=== PATIENT | male | born 1945 | race Caucasian/White ===

== ENCOUNTER → 2018-03-31 | Outpatient (CLI) | payer MEDICARE, OTHER ==
[~2018-03-31] VITALS: Ht 172.7 cm; Wt 88.5 kg
[~2018-03-31] MED LIST: CARV3.12T PO; CATHETER FLUSH 10 ML SYR IV PRN; CHOL10008 PO; E400C PO; ENXP30I.3 SC; FISH1200 PO; HCT25T; KRIL1CAP PO; LISI10TA PO; LISI5TAB PO; NIAC1CAP PO; NIAC250C2 PO; PITA2TAB2 PO; PRD20T PO; REGADENOSON 0.4 MG/5 ML SYR (LEXISCAN) IV ONE; TAPE50TA PO; TMSL.4C PO; WRF1T PO; WRF3T PO
[2018-03-31 08:55] VITALS: BP 174/84
[2018-03-31 08:59] VITALS: BP 173/106
--- NOTE | 2018-04-01 19:33 | STRESS TEST ---
DATE OF SERVICE: 03/31/2018 RESTING AND POST-REGADENOSON TECHNETIUM-99M TETROFOSMIN SPECT CT IMAGING ORDERING PHYSICIAN: Dr. Reddy. PRIMARY CARE PHYSICIAN: Dr. Fajardo. CLINICAL DIAGNOSIS: Malaise, shortness of breath. Baseline images were carried out after injection of 10.86 mCi of technetium-99m Tetrofosmin. This was followed by 0.4 mg of regadenoson and 30.6 mCi of technitium-99m Tetrofosmin for stress imaging. The electrocardiogram showed sinus rhythm at baseline. He did not change significantly with the regadenoson infusion. The patient tolerated the procedure well. Review of images at rest and following stress does not indicate any distinct perfusion defects consistent with myocardial ischemia or infarction. Count uptake is diminished in the diaphragmatic wall of the left ventricle, both at rest and following regadenoson infusion. Gated images show normal global left ventricular systolic function and normal regional wall motion, including the diaphragmatic wall of the left ventricle. Left ventricular ejection fraction is calculated to be 67%. Left ventricular end-diastolic volume 31 mL. TID is absent (1.07). CONCLUSIONS: 1. No evidence of significant myocardial ischemia or infarction on this study. 2. Normal regional wall motion. 3. Normal global left ventricular systolic function with a calculated ejection fraction of 67%. Job ID: [id number] DocumentID: [id number] Dictated Date: 04/01/2018 16:11:21 Laser Engraver Date: 04/01/2018 19:33:01 Dictated By: SUNNY REDDY MD, MA, FACP, FACC,
== END ==
LOC: CARD 07:14
PROVIDERS: ATTEND Internal Medicine Cardiovascular Disease
DX: R53.81 Other malaise (principal); R06.02 Shortness of breath; I10 Essential (primary) hypertension; D68.51 Activated protein C resistance
CPT/HCPCS: 78452; 93017

== ENCOUNTER → 2018-04-07 | Outpatient (CLI) | payer MEDICARE, OTHER ==
[~2018-04-07] MED LIST changes: -CATHETER FLUSH 10 ML SYR IV PRN; -REGADENOSON 0.4 MG/5 ML SYR (LEXISCAN) IV ONE
== END ==
LOC: CARD 09:46
PROVIDERS: ATTEND Internal Medicine Cardiovascular Disease
DX: R06.02 Shortness of breath (principal); I10 Essential (primary) hypertension; D68.51 Activated protein C resistance; R53.81 Other malaise; I08.1 Rheumatic disorders of both mitral and tricuspid valves
CPT/HCPCS: 93306

== ENCOUNTER 2018-04-14 08:15 | Emergency (ER) | payer MEDICARE ==
[~2018-04-14] VITALS: Ht 172.7 cm; Wt 86.2 kg
[~2018-04-14 08:15] MED LIST changes: -PRD20T PO
--- OUTSIDE RECORDS SUMMARY | 2018-04-14 08:24 | XMS REPORT | Clinical Summary ---
Author Author [facility] Organization [facility] Address Unknown Phone Unavailable Care Team Providers Care Administrative Medical Director Name Role Phone PCP Unavailable Source Comments Some departments are not documenting in the electronic medical record. If you do not see the information that you expected, contact Release of Information in the Health Information Management department at [phone] for further assistance in locating additional records.[facility] Allergies Active Allergy Reactions Severity Noted Date Comments Aspirin Medium 12/07/2006 Allergy recorded in SMS: Aspirin~Reactions: HIVES Current Medications Not on file Active Problems Not on file Social History Tobacco Use Types Packs/Day Years Used Date Never Assessed Sex Assigned at Date Recorded Not on file Last Filed Vital Signs Not on file Plan of Treatment Health Maintenance Due Date Last Done Comments HEPATITIS C SCREENING 1945 PHYSICAL (COMPREHENSIVE) 1953 EXAM PERTUSSIS VACCINE 1957 TETANUS VACCINE 12/22/1963 COLORECTAL CANCER 1996 SCREENING SHINGLES RECOMBINANT 1996 VACCINE (1 of 2) PNEUMONIA (PCV13/PPSV23) 12/22/2011 VACCINES (1 of 2 - PCV13) INFLUENZA VACCINE 06/27/2018 Results Not on filefrom Last 3 Months
--- OUTSIDE RECORDS SUMMARY | 2018-04-14 08:27 | XMS REPORT | CCD ---
Author Author [facility] Organization [facility] Address [address] [place] [address] Phone Care Team Providers Care Beam Racker Name Role Phone PP Unavailable CCM Unavailable Summary Purpose Interface Exchange Insurance Providers Payer name Policy type / Coverage type Covered green party ID Effective Begin Date Effective End Date [employer] Medicare Part B [id number] 2016 Unknown Family history Mother Diagnosis Age At Onset Stroke Unknown Father Diagnosis Age At Onset Hypertension Unknown Sister Diagnosis Age At Onset Hypertension Unknown Social History Social History Element Codes Description Effective Dates Marital status Unknown 11/09/[address]: 4444680 Former smoker quit 1988 11/09/2012 Allergies, Adverse Reactions, Alerts Substance Reaction Codes Entered Date Inactivated Date Status ASPIRIN (TARTRAZINE ONLY) hives Unknown 11/09/2012 No Inactive Date Active Past Medical History Illness Codes Condition Status Onset Date Resolved Date Other acute sinusitis ICD-9: 461.8 ICD-10: J01.80 Active 10/06/2017 Unknown Other allergic rhinitis ICD-9: 477.8 ICD-10: J30.89 Active 10/06/2017 Unknown 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 ICD-9: V58.69 ICD-10: Z79.899 Active 03/01/2016 Unknown Gastro-esophageal reflux disease without esophagitis ICD-9: 530.81 ICD-10: K21.9 Active 06/23/2017 Unknown Pain in right elbow ICD-9: 719.42 ICD-10: M25.521 Active 02/24/2017 Unknown Other conditions associated with Lyme disease ICD-9: 088.81 ICD-10: A69.29 Active 04/14/2017 Unknown Other dorsalgia ICD-9 : 723.1 ICD-10: M54.89 Active 04/14/2017 Unknown Other fatigue ICD-9: 780.79 ICD-10: R53.83 Active 02/24/2017 Unknown Pain in joints of left hand ICD-9: 719.44 ICD-10: M25.542 Active 02/24/2017 Unknown Pain in joints of right hand ICD-9: 719.44 ICD-10: M25.541 Active 02/24/2017 Unknown Pain in left elbow ICD -9: 719.42 ICD-10: M25.522 Active 02/24/2017 Unknown Essential (primary) hypertension ICD-9: 401.9 ICD-10: I10 Active 05/06/2016 Unknown Impaired fasting glucose ICD-9: 790.21 ICD-10: R73.01 Active 03/01/2016 Unknown Acute recurrent maxillary sinusitis ICD-9: 461.0 ICD-10: J01.01 Active 10/30/2015 Unknown Mixed hyperlipidemia ICD-9: 272.4 ICD-10: E78.2 Active 10/30/2015 Unknown CELLULITIS ICD-9: 682.9 Active 01/25/2014 Unknown Acute maxillary sinusitis ICD-9: 461.0 Active 11/29/2013 Unknown Cough ICD-9: 786.2 Active 11/29/2013 Unknown Encounter for long-term (current) use of other high-risk medications ICD-9: V58.69 Active 11/10/2013 Unknown Allergic rhinitis ICD- 9: 477.9 Active 02/23/2013 Unknown Esophageal reflux ICD- 9: 530.81 Active 02/23/2013 Unknown Sore throat ICD-9: 462 Active 02/23/2013 Unknown Hyperlipidemia Unknown Active 11/30/2012 Unknown HYPERLIPIDEMIA ICD-9: 272.4 Active 11/30/2012 Unknown 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 Active 2012 Unknown Hypertension Unknown Active 11/09/2012 Unknown ESSENTIAL HYPERTENSION ICD-9: 401.9 Active 11/09/2012 Unknown Hip pain ICD-9: 719.45 Active 11/09/2012 Unknown Renal artery stenosis ICD-9: 440.1 Active 11/09/2012 Unknown Problems Condition Codes Effective Dates Condition Status Other acute sinusitis ICD-9: 461.8 ICD-10: J01.80 10/06/2017 Active Other allergic rhinitis ICD-9: 477.8 ICD-10: J30.89 10/06/2017 Active 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 ICD-9: V58.69 ICD-10: Z79.899 03/01/2016 Active Gastro-esophageal reflux disease without esophagitis ICD-9: 530.81 ICD-10: K21.9 06/23/2017 Active Pain in right elbow ICD-9: 719.42 ICD-10: M25.521 02/24/2017 Active Other conditions associated with Lyme disease ICD-9: 088.81 ICD-10: A69.29 04/14/2017 Active Other dorsalgia ICD-9 : 723.1 ICD-10: M54.89 04/14/2017 Active Other fatigue ICD-9: 780.79 ICD-10: R53.83 02/24/2017 Active Pain in joints of left hand ICD-9: 719.44 ICD-10: M25.542 02/24/2017 Active Pain in joints of right hand ICD-9: 719.44 ICD-10: M25.541 02/24/2017 Active Pain in left elbow ICD -9: 719.42 ICD-10: M25.522 02/24/2017 Active Essential (primary) hypertension ICD-9: 401.9 ICD-10: I10 05/06/2016 Active Impaired fasting glucose ICD-9: 790.21 ICD-10: R73.01 03/01/2016 Active Acute recurrent maxillary sinusitis ICD-9: 461.0 ICD-10: J01.01 10/30/2015 Active Mixed hyperlipidemia ICD-9: 272.4 ICD-10: E78.2 10/30/2015 Active CELLULITIS ICD-9: 682.9 01/25/2014 Active Acute maxillary sinusitis ICD-9: 461.0 11/29/2013 Active Cough ICD-9: 786.2 11/29/2013 Active Encounter for long-term (current) use of other high-risk medications ICD-9: V58.69 11/10/2013 Active Allergic rhinitis ICD- 9: 477.9 02/23/2013 Active Esophageal reflux ICD- 9: 530.81 02/23/2013 Active Sore throat ICD-9: 462 02/23/2013 Active Hyperlipidemia Unknown 11/30/2012 Active HYPERLIPIDEMIA ICD-9: 272.4 11/30/2012 Active 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 11/30/2012 Active Hypertension Unknown 11/09/2012 Active ESSENTIAL HYPERTENSION ICD-9: 401.9 11/09/2012 Active Hip pain ICD-9: 719.45 11/09/2012 Active Renal artery stenosis ICD-9: 440.1 11/09/2012 Active Medications Medication Codes Instructions Start Date Stop Date Status Fill Instructions amoxicillin 500 mg capsule RxNorm: 607814 1 Capsule(s) PO TID 10/19/2017 10/28/2017 Active amoxicillin 500 mg capsule RxNorm: 359068 1 Capsule(s) PO TID 10/19/2017 10/18/2017 Inactive Zithromax Z-[place] 250 mg tablet RxNorm: 891942 1 Tablet(s) PO UD 10/06/2017 No Stop Date Active Kenalog 40 mg/mL suspension for injection RxNorm: 7387790 1 Milliliter(s) Inj 10/06/2017 10/06/2017 Inactive Flomax 0.4 mg capsule RxNorm: 239715 TAKE 2 CAPSULES BY MOUTH DAILY 09/30/2017 12/23/2018 Active - Ref: [id number] warfarin 3 mg tablet RxNorm: 783102 TAKE 1 TABLET BY MOUTH ON WEDNESDAY , WEDNESDAY , WEDNESDAY,WEDNESDAY, WEDNESDAY THEN 1 AND 1/2 TABLETS BY MOUTH ON WEDNESDAY AND Wednesday09/30/2017 06/21/2019 Active - Ref: [id number] omeprazole 20 mg capsule,delayed release RxNorm: 019064 1 Capsule(s) PO daily 06/23/2017 07/22/2017 Inactive lisinopril 20 mg tablet RxNorm: 136659 1 Tablet(s) PO BID 04/2104/15/2018 Active Coreg 12.5 mg tablet RxNorm: 147512 1 Tablet(s) PO BID 201605/20/2017 Inactive Coreg 12.5 mg tablet RxNorm: 038258 1 Tablet(s) PO BID 201604/20/2017 Inactive Augmentin 500 mg-125 mg tablet RxNorm: 461252 1 Tablet(s) PO TID 04/14/2017 04/22/2017 Inactive Diflucan 150 mg tablet RxNorm: 250806 1 Tablet(s) PO daily 04/18/2017 Inactive Flomax 0.4 mg capsule RxNorm: 495310 Take 2 capsules by mouth daily 03/31/2017 09/29/2017 Inactive - First Attempt Ref: [id number] lisinopril 20 mg tablet RxNorm: 859715 1 Tablet(s) PO BID 03/1104/20/2017 Inactive Voltaren 1 % topical gel RxNorm: 498921 1 Application TOP BID as needed 03/09/2017 No Stop Date Active lisinopril 20 mg tablet RxNorm: 298688 2 Tablet(s) PO BID 02/2603/10/2017 Inactive cyclobenzaprine 5 mg tablet RxNorm: 657032 1 Tablet(s) PO TID as needed muscle spasms 02/24/2017 02/28/2017 Inactive warfarin 3 mg tablet RxNorm: 057022 1 Tablet(s) PO daily 201609/29/2017 Inactive lisinopril 20 mg tablet RxNorm: 357801 Take 2 tablets by mouth twice a day 09/22/2016 02/25/2017 Inactive - Ref: [id number] lisinopril 20 mg tablet RxNorm: 676800 1 Tablet(s) PO BID 05/0702/25/2017 Inactive First Attempt Coreg 25 mg tablet RxNorm: 138817 1 Tablet(s) PO BID 201502/23/[address] Reddy lisinopril 20 mg tablet RxNorm: 640055 1 Tablet(s) PO daily Take 2 tablets by mouth bid 05/07/2016 05/06/2016 Inactive First Attempt Flomax 0.4 mg capsule RxNorm: 026511 Take 2 capsules by mouth daily 03/15/2016 03/30/2017 Inactive - First Attempt lisinopril 20 mg tablet RxNorm: 865430 2 Tablet(s) PO BID Take 2 tablets by mouth bid 03/04/2016 05/06/2016 Inactive First Attempt lisinopril 20 mg tablet RxNorm: 603474 1 Tablet(s) PO BID Take 2 tablets by mouth daily 03/02/2016 03/03/2016 Inactive First Attempt Phenergan with Codeine Syrup RxNorm: 5 Milliliter(s) PO Q6 PRN 10/31/2015 No Stop Date Active Kenalog 40 mg/mL suspension for injection RxNorm: 5012436 Milliliter(s) Inj 10/31/2015 10/31/2015 Inactive warfarin 3 mg tablet RxNorm: 456486 Tablet(s) Take 1 tablet by mouth on tues,wed, thur,sat and sun and 1 and 1/2 tablets by mouth on wed and wed10/31/2015 07/23/2016 Inactive Zithromax Z-[place] 250 mg tablet RxNorm: 540248 1 Tablet(s) PO UD 10/31/2015 11/04/2015 Inactive zpack Coreg 3.125 mg tablet RxNorm: 791878 1 Tablet(s) PO BID 201405/06/2016 Inactive warfarin 3 mg tablet RxNorm: 498629 Take 1 tablet by mouth on tues,wed,thur,sat and sun and 1 and 1/2 tablets by mouth on wed and wed06/05/2015 Inactive 2nd Attempt warfarin 3 mg tablet RxNorm: 428700 Tablet(s) Take 1 tablet by mouth on tues,wed, thur,sat and sun and 1 and 1/2 tablets by mouth on wed and wed06/06/2015 10/30/2015 Inactive 2nd Attempt Flomax 0.4 mg capsule RxNorm: 301775 Take 2 capsules by mouth daily 04/29/2015 01/23/2016 Inactive First Attempt lisinopril 10 mg tablet RxNorm: 146367 Take 2 tablets by mouth daily 04/29/2015 01/23/2016 Inactive First Attempt warfarin 3 mg tablet RxNorm: 337314 one wed thur sat sun 4.5mg wednesday Tablet(s) PO daily 07/25/2014 06/05/2015 Inactive Flomax 0.4 mg capsule RxNorm: 245356 2 Capsule(s) PO daily 07/2504/28/2015 Inactive lisinopril 10 mg tablet RxNorm: 168418 2 Tablet(s) PO daily 04/28/2015 Inactive Coreg 3.125 mg tablet RxNorm: 733656 1 Tablet(s) PO BID 201306/18/2015 Inactive cephalexin 500 mg capsule RxNorm: 690098 1 Capsule(s) PO QID 10/30/2015 Inactive lisinopril 20 mg tablet RxNorm: 097776 1 Tablet(s) PO BID 11/1003/09/2014 Inactive Flomax 0.4 mg capsule RxNorm: 741056 2 Capsule(s) PO daily 10/1207/24/2014 Inactive Coreg 3.125 mg tablet RxNorm: 389587 1 Tablet(s) PO BID 201307/24/2014 Inactive lisinopril 10 mg tablet RxNorm: 369125 2 Tablet(s) PO daily 11/09/2013 Inactive warfarin 3 mg tablet RxNorm: 172916 one wed sat sun 4.5mg wednesday Tablet(s) PO daily 10/12/2013 07/24/2014 Inactive o Flomax 0.4 mg capsule RxNorm: 342025 2 Capsule(s) PO daily 06/0510/11/2013 Inactive Zetia 10 mg tablet RxNorm: 742022 1 Tablet(s) PO daily 201205/15/2013 Inactive Zetia 10 mg tablet RxNorm: 214720 1 Tablet(s) PO daily 201209/12/2013 Inactive Carafate 100 mg/mL Oral Susp RxNorm: 241946 10 Milliliter(s) PO QID 05/10/2013 10/30/2015 Inactive dispense one month supply Flomax 0.4 mg capsule RxNorm: 390746 2 Capsule(s) PO daily 05/1006/04/2013 Inactive Carafate 100 mg/mL Oral Susp RxNorm: 156539 10 Milliliter(s) PO QID 02/23/2013 04/23/2013 Inactive dispense one month supply gabapentin 100 mg capsule RxNorm: 369329 1 Capsule(s) PO daily one at bedtime and one up to three times daily as needed for nerve pain in leg 01/16/2013 05/09/2013 Inactive gabapentin 100 mg capsule RxNorm: 233266 1 Capsule(s) PO daily one at bedtime and one up to three times daily as needed for nerve pain in leg 01/12/2013 01/15/2013 Inactive warfarin 3 mg tablet RxNorm: 872082 Tablet(s) PO 12/05/2012 10/11/2013 Inactive one wed thur sat4.5 mg wed lisinopril 10 mg tablet RxNorm: 397684 2 Tablet(s) PO daily 02/201306/27/2013 Inactive gabapentin 100 mg capsule RxNorm: 692636 1 Capsule(s) PO Q8 PRN one at bedtime and one up to three times daily as needed for nerve pain in leg 11/30/2012 01/11/2013 Inactive Coreg 3.125 mg tablet RxNorm: 858720 1 Tablet(s) PO BID 201201/07/2013 Inactive lisinopril 10 mg tablet RxNorm: 573220 1.5 Tablet(s) PO daily 11/09/2012 11/29/2012 Inactive Co Q-10 oral RxNorm: 73561 oral No Start Date Active lisinopril 20 mg tablet RxNorm: 130358 1 Tablet(s) PO BID No Start Date Active famotidine 20 mg tablet RxNorm: 969556 1 Tablet(s) PO QAM No Start Date Active Coreg 12.5 mg tablet RxNorm: 095039 1 Tablet(s) PO BID No Start Date 04/20/2017 Inactive Voltaren 1 % topical gel RxNorm: 937128 1 Application TOP BID as needed No Start Date 03/08/2017 Inactive warfarin 3 mg tablet RxNorm: 414884 Tablet(s) PO No Start Date 12/04/2012 Inactive one e thur sat4.5 mg wed Flomax 0.4 mg capsule RxNorm: 054538 1 Capsule(s) PO daily No Start Date 05/09/2013 Inactive niacin 500 mg tablet RxNorm: 666600 1 Tablet(s) PO daily No Start Date 03/01/2016 Inactive Medication Administered Medication Codes Instructions Start Date Status Kenalog 40 mg/mL suspension for injection RxNorm: 8153740 1Milliliter 10/06/2017 No longer Active Kenalog 40 mg/mL suspension for injection RxNorm: 5374625 Milliliter 10/31/2015 No longer Active Immunizations No Immunization data Assessments Condition Codes Effective Dates Other acute sinusitis ICD-10: J01.80 ICD-9: 461.8 10/06/2017 Other allergic rhinitis ICD-10: J30.89 ICD-9: 477.8 10/06/2017 Other half-way (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 ICD-10: Z79.899 ICD-9: V58.69 10/06/2017 Gastro-esophageal reflux disease without esophagitis ICD-10 : K21.9 ICD-9: 530.81 06/23/2017 Pain in right elbow ICD-10: M25.521 ICD-9: 719.42 06/23/2017 Other dorsalgia ICD-10: M54.89 ICD-9: 723.1 04/14/2017 Other conditions associated with Lyme disease ICD-10: A69.29 ICD-9: 088.81 04/14/2017 Pain in joints of right hand ICD-10: M25.541 ICD-9: 719.44 02/24/2017 Other fatigue ICD-10: R53.83 ICD-9: 780.79 02/24/2017 Pain in left elbow ICD-10: M25.522 ICD-9: 719.42 02/24/2017 Pain in joints of left hand ICD-10: M25.542 ICD-9: 719.44 02/24/2017 Essential (primary) hypertension ICD-10: I10 ICD-9: 401.9 05/07/2016 Impaired fasting glucose ICD-10: R73.01 ICD-9: 790.21 03/02/2016 Acute recurrent maxillary sinusitis ICD-10: J01.01 ICD-9: 461.0 10/31/2015 Mixed hyperlipidemia ICD-10: E78.2 ICD-9: 272.4 10/31/2015 CELLULITIS ICD-9: 682.9 01/25/2014 Cough ICD-9: 786.2 11/29/2013 Acute maxillary sinusitis ICD-9: 461.0 ESSENTIAL HYPERTENSION SNOMED: 45498264 ICD-9: 401.9 11/10/2013 Encounter for long-term (current) use of other high-risk medications ICD-9: V58.69 11/10/2013 HYPERLIPIDEMIA ICD-9: 272.4 05/10/2013 Allergic rhinitis ICD-9: 477.9 2012 Sore throat ICD-9: 462 02/23/2013 Esophageal reflux ICD-9: 530.81 2012 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 11/30/2012 Hip pain ICD-9: 719.45 11/09/2012 Renal artery stenosis ICD-9: 440.1 2012 Reason For Visit Reason For Visit Effective Dates Notes cough 10/06/2017 gas and bloating 06/23/2017 back pain 04/14/2017 forearm pain 02/24/2017 ribs blood pressure followup 05/07/2016 blood pressure followup 03/02/2016 fever 10/31/2015 skin lesion 01/25/2014 cough 11/29/2013 blood pressure followup 11/10/2013 hypertension 05/10/2013 sore throat 02/23/2013 hypertension 01/12/2013 hypertension 11/30/2012 hypertension 11/09/2012 Results Observation Observation Code Item Item Code Result Date Pt Fgw0340 PT 30.2 seconds 10/06/2017 Pt Azu4121 INR 2.9 10/06/2017 Pt Ifp6169 Low Intensity - 1.5-2.0 10/06/2017 Pt Sav2773 Mod intensity - 2.0-3.0 10/06/2017 Pt Pqu9311 Hi intensity - 3.0-4.0 10/06/2017 Pt Djz0470 PT 33.3 seconds 06/23/2017 Pt Jar3762 INR 3.2 06/23/2017 Pt Ypp9628 Low Intensity - 1.5-2.0 06/23/2017 Pt Fsi6893 Mod intensity - 2.0-3.0 06/23/2017 Pt Zyc3017 Hi intensity - 3.0-4.0 06/23/2017 Tsh Ord6 hTSH II 0.86 uIU/mL 02/24/2017 C-Reactive Protein Qnt Crqnt CRP 0.2 mg/dl 02/24/2017 Comp Metabolic Wqw442 NA 139 mEq/L 02/24/2017 Comp Metabolic Fbe591 K 3.9 mEq/L 02/24/2017 Comp Metabolic Nnf073 CL 105 mEq/L 02/24/2017 Comp Metabolic Exy936 CO2 27.0 mEq/L 02/24/2017 Comp Metabolic Gut243 ANION GAP 11 02/24/2017 Comp Metabolic Pir134 GLUCOSE 93 mg/dL 02/24/2017 Comp Metabolic Pkn059 Creat 1.1 mg/dL 02/24/2017 Comp Metabolic Ybx196 eGFR 73 ml/min/1.73m2 02/24/2017 Comp Metabolic Pdw190 BUN 14 mg/dL 02/24/2017 Comp Metabolic Sai471 B/C Ratio 13.1 Ratio 02/24/2017 Comp Metabolic Tlm291 CALCIUM 8.4 mg/dL 02/24/2017 Comp Metabolic Biu390 ALK PHOS 89 U/L 02/24/2017 Comp Metabolic Khr388 AST(SGOT) 18 U/L 02/24/2017 Comp Metabolic Lcl400 ALT(SGPT) 21 U/L 02/24/2017 Comp Metabolic Yvl355 BILI T 0.5 mg/dL 02/24/2017 Comp Metabolic Vou591 ALBUMIN 3.8 g/dL 02/24/2017 Comp Metabolic Whj425 TPRO 6.5 g/dL 02/24/2017 Comp Metabolic Jrm227 GLOB 2.7 g/dL 02/24/2017 Comp Metabolic Fpq514 A/G Ratio 1.4 Ratio 02/24/2017 Comp Metabolic Bxb367 Osmo 278 mOsmo 02/24/2017 Sed Rate Ord21 ESR 25 mm/hr 02/24/2017 Pt Tri4702 PT 31.7 seconds 02/24/2017 Pt Hjc5670 INR 3.3 02/24/2017 Pt Iqi5155 Low Intensity - 1.5-2.0 02/24/2017 Pt Cuh7185 Mod intensity - 2.0-3.0 02/24/2017 Pt Gwe9416 Hi intensity - 3.0-4.0 02/24/2017 Cbc With Differential Ord2 WBC 8.43 K/ul 02/24/2017 Cbc With Differential Ord2 RBC 5.17 M/ul 02/24/2017 Cbc With Differential Ord2 HGB 15.3 g/dl 02/24/2017 Cbc With Differential Ord2 HCT 43.7 % 02/24/2017 Cbc With Differential Ord2 Neut% 55.5 % 02/24/2017 Cbc With Differential Ord2 MCV 84.5 fl 02/24/2017 Cbc With Differential Ord2 Lymph% 31.1 % 02/24/2017 Cbc With Differential Ord2 [place]% 9.7 % 02/24/2017 Cbc With Differential Ord2 MCH 29.6 pg 02/24/2017 Cbc With Differential Ord2 MCHC 35.0 pg 02/24/2017 Cbc With Differential Ord2 Eos% 2.6 % 02/24/2017 Cbc With Differential Ord2 Baso% 1.1 % 02/24/2017 Cbc With Differential Ord2 PLT 212 K/ul 02/24/2017 Cbc With Differential Ord2 Neut ABS# 4.68 K/ul 02/24/2017 Cbc With Differential Ord2 RDW 13.9 % 02/24/2017 Cbc With Differential Ord2 Lymph ABS# 2.62 K/ul 02/24/2017 Cbc With Differential Ord2 [place] ABS# 0.8 K/ul 02/24/2017 Cbc With Differential Ord2 Eos ABS# 0.2 K/ul 02/24/2017 Cbc With Differential Ord2 Baso ABS# 0.1 K/ul 02/24/2017 Pt Npz2897 PT 22.4 seconds 12/28/2016 Pt Fqk5690 INR 2.1 12/28/2016 Pt Rit1095 Low Intensity - 1.5-2.0 12/28/2016 Pt Dro0390 Mod intensity - 2.0-3.0 12/28/2016 Pt Ewt2313 Hi intensity - 3.0-4.0 12/28/2016 Pt Lal2657 PT 30.2 seconds 11/26/2016 Pt Zjy5937 INR 3.1 11/26/2016 Pt How0548 Low Intensity - 1.5-2.0 11/26/2016 Pt Sxo2931 Mod intensity - 2.0-3.0 11/26/2016 Pt Rva2489 Hi intensity - 3.0-4.0 11/26/2016 Pt Vkf8090 PT 34.3 seconds 11/20/2016 Pt Zmn8541 INR 3.7 11/20/2016 Pt Xih0496 Low Intensity - 1.5-2.0 11/20/2016 Pt Yff9139 Mod intensity - 2.0-3.0 11/20/2016 Pt Adn1356 Hi intensity - 3.0-4.0 11/20/2016 Pt Ixk7937 PT 29.0 seconds 07/14/2016 Pt Wnf2782 INR 2.9 07/14/2016 Pt Mkd5920 Low Intensity - 1.5-2.0 07/14/2016 Pt Wdm3426 Mod intensity - 2.0-3.0 07/14/2016 Pt Sbv0510 Hi intensity - 3.0-4.0 07/14/2016 Lipid Ord30 CHOL 236 mg/dL 07/14/2016 Lipid Ord30 HDL 36.0 mg/dl 07/14/2016 Lipid Ord30 TRIG 406 mg/dL 07/14/2016 Lipid Ord30 LDL Unable to calculate Due to elevated triglycerides mg/dL 07/14/2016 Lipid Ord30 C/HDL 6.6 Ratio 07/14/2016 %Hba1C Rkl980 % HbA1c 75345-9 6.0 % 03/02/2016 %Hba1C Chm454 Gluc Ave 126 mg/dL 03/02/2016 Tsh Ord6 hTSH II 0.68 uIU/mL 03/02/2016 Comp Metabolic Ttb621 NA 140 mEq/L 03/02/2016 Comp Metabolic Smm102 K 4.1 mEq/L 03/02/2016 Comp Metabolic Rwr757 CL 105 mEq/L 03/02/2016 Comp Metabolic Gyy562 CO2 29.0 mEq/L 03/02/2016 Comp Metabolic Cne281 ANION GAP 10 03/02/2016 Comp Metabolic Bcf813 GLUCOSE 104 mg/dL 03/02/2016 Comp Metabolic Hju026 Creat 1.0 mg/dL 03/02/2016 Comp Metabolic Vph429 eGFR 77 ml/min/1.73m2 03/02/2016 Comp Metabolic Fty428 BUN 15 mg/dL 03/02/2016 Comp Metabolic Ncq702 B/C Ratio 14.7 Ratio 03/02/2016 Comp Metabolic Hrh172 CALCIUM 8.9 mg/dL 03/02/2016 Comp Metabolic Kng124 ALK PHOS 84 U/L 03/02/2016 Comp Metabolic Hdh063 AST(SGOT) 16 U/L 03/02/2016 Comp Metabolic Hso638 ALT(SGPT) 17 U/L 03/02/2016 Comp Metabolic Tft905 BILI T 0.5 mg/dL 03/02/2016 Comp Metabolic Ylr997 ALBUMIN 4.0 g/dL 03/02/2016 Comp Metabolic Zuy151 TPRO 6.6 g/dL 03/02/2016 Comp Metabolic Ziy826 GLOB 2.6 g/dL 03/02/2016 Comp Metabolic Leb434 A/G Ratio 1.5 Ratio 03/02/2016 Comp Metabolic Jdb736 Osmo 281 mOsmo 03/02/2016 Cbc With Differential Ord2 WBC 8.05 K/ul 03/02/2016 Cbc With Differential Ord2 RBC 5.16 M/ul 03/02/2016 Cbc With Differential Ord2 HGB 15.1 g/dl 03/02/2016 Cbc With Differential Ord2 HCT 44.4 % 03/02/2016 Cbc With Differential Ord2 Neut% 60.4 % 03/02/2016 Cbc With Differential Ord2 MCV 86.0 fl 03/02/2016 Cbc With Differential Ord2 Lymph% 28.4 % 03/02/2016 Cbc With Differential Ord2 [place]% 8.1 % 03/02/2016 Cbc With Differential Ord2 MCH 29.3 pg 03/02/2016 Cbc With Differential Ord2 Eos% 1.9 % 03/02/2016 Cbc With Differential Ord2 MCHC 34.0 pg 03/02/2016 Cbc With Differential Ord2 PLT 232 K/ul 03/02/2016 Cbc With Differential Ord2 Baso% 1.2 % 03/02/2016 Cbc With Differential Ord2 RDW 14.0 % 03/02/2016 Cbc With Differential Ord2 Neut ABS# 4.86 K/ul 03/02/2016 Cbc With Differential Ord2 Lymph ABS# 2.29 K/ul 03/02/2016 Cbc With Differential Ord2 [place] ABS# 0.7 K/ul 03/02/2016 Cbc With Differential Ord2 Eos ABS# 0.2 K/ul 03/02/2016 Cbc With Differential Ord2 Baso ABS# 0.1 K/ul 03/02/2016 Pt Jse5443 PT 30.0 seconds 03/02/2016 Pt Ooi0890 INR 3.1 03/02/2016 Pt Ekd8488 Low Intensity - 1.5-2.0 03/02/2016 Pt Zep5753 Mod intensity - 2.0-3.0 03/02/2016 Pt Inh0678 Hi intensity - 3.0-4.0 03/02/2016 Cbc With Differential Ord2 WBC 5.13 K/ul 10/31/2015 Cbc With Differential Ord2 RBC 5.65 M/ul 10/31/2015 Cbc With Differential Ord2 HGB 16.3 g/dl 10/31/2015 Cbc With Differential Ord2 HCT 48.0 % 10/31/2015 Cbc With Differential Ord2 Neut% 59.8 % 10/31/2015 Cbc With Differential Ord2 Lymph% 25.5 % 10/31/2015 Cbc With Differential Ord2 MCV 85.0 fl 10/31/2015 Cbc With Differential Ord2 [place]% 12.7 % 10/31/2015 Cbc With Differential Ord2 MCH 28.8 pg 10/31/2015 Cbc With Differential Ord2 MCHC 34.0 pg 10/31/2015 Cbc With Differential Ord2 Eos% 1.4 % 10/31/2015 Cbc With Differential Ord2 PLT 222 K/ul 10/31/2015 Cbc With Differential Ord2 Baso% 0.6 % 10/31/2015 Cbc With Differential Ord2 Neut ABS# 3.07 K/ul 10/31/2015 Cbc With Differential Ord2 RDW 14.4 % 10/31/2015 Cbc With Differential Ord2 Lymph ABS# 1.31 K/ul 10/31/2015 Cbc With Differential Ord2 [place] ABS# 0.7 K/ul 10/31/2015 Cbc With Differential Ord2 Eos ABS# 0.1 K/ul 10/31/2015 Cbc With Differential Ord2 Baso ABS# 0.0 K/ul 10/31/2015 Cbc With Differential Ord2 New Analyzer Notice Please note new ref ranges starting 10-09-2015 due to implemntation of new five part differential hematolgy analyzer. 10/31/2015 Lipid Ord30 CHOL 184 mg/dL 10/31/2015 Lipid Ord30 HDL 29.0 mg/dl 10/31/2015 Lipid Ord30 TRIG 283 mg/dL 10/31/2015 Lipid Ord30 LDL 98 mg/dL 10/31/2015 Lipid Ord30 C/HDL 6.3 Ratio 10/31/2015 Tsh Ord6 hTSH II 0.88 uIU/mL 10/31/2015 Comp Metabolic Fpp466 NA 135 mEq/L 10/31/2015 Comp Metabolic Mce648 K 4.2 mEq/L 10/31/2015 Comp Metabolic Lgq816 CL 99 mEq/L 10/31/2015 Comp Metabolic Uxa697 CO2 28.0 mEq/L 10/31/2015 Comp Metabolic Dfg537 ANION GAP 12 10/31/2015 Comp Metabolic Xup292 GLUCOSE 107 mg/dL 10/31/2015 Comp Metabolic Ndo251 Creat 1.2 mg/dL 10/31/2015 Comp Metabolic Mjs222 eGFR 63 ml/min/1.73m2 10/31/2015 Comp Metabolic Cqx566 BUN 12 mg/dL 10/31/2015 Comp Metabolic Hdr150 B/C Ratio 9.9 Ratio 10/31/2015 Comp Metabolic Zot823 CALCIUM 8.4 mg/dL 10/31/2015 Comp Metabolic Jrl712 ALK PHOS 134 U/L 10/31/2015 Comp Metabolic Egn405 AST(SGOT) 20 U/L 10/31/2015 Comp Metabolic Mif966 ALT(SGPT) 16 U/L 10/31/2015 Comp Metabolic Nrq701 BILI T 0.4 mg/dL 10/31/2015 Comp Metabolic Ntv943 ALBUMIN 4.2 g/dL 10/31/2015 Comp Metabolic Bmj557 TPRO 7.2 g/dL 10/31/2015 Comp Metabolic Eho796 GLOB 3.1 g/dL 10/31/2015 Comp Metabolic Qyn964 A/G Ratio 1.4 Ratio 10/31/2015 Comp Metabolic Aou300 Osmo 270 mOsmo 10/31/2015 Total Psa Ord10 PSA 2.66 ng/mL 10/31/2015 %Hba1C Hop807 % HbA1c 78804-9 6.1 % 10/31/2015 %Hba1C Apb891 Gluc Ave 128 mg/dL 10/31/2015 Pt Vky7880 PT 26.4 seconds 10/31/2015 Pt Jll0397 INR 2.5 10/31/2015 Pt Nfu9730 Low Intensity - 1.5-2.0 10/31/2015 Pt Ptr8754 Mod intensity - 2.0-3.0 10/31/2015 Pt Dpm7691 Hi intensity - 3.0-4.0 10/31/2015 TSH 8495822 TSH 0.819 uIU/ML 11/10/2013 PT/MC 8222611 PRO TIME 24.5 SEC 11/10/2013 PT/MC [id number] INR MCMC 2.3 11/10/2013 GFR CALC 1422307 GFR AA >60 ML/MIN 11/10/2013 GFR CALC 5286090 GFR NON-AA >60 ML/MIN 11/10/2013 CBC 7947247 WBC 8.4 10e9/L 11/10/2013 CBC 7868069 RBC 5.24 10e12/L 11/10/2013 CBC 0407929 HGB 15.4 g/dL 11/10/2013 CBC 7434593 HCT DET 43.8 % 11/10/2013 CBC 4691094 MCV 83.6 fL 11/10/2013 CBC 1290707 MCH 29.4 pg 11/10/2013 CBC 6504678 MCHC 35.2 g/dL 11/10/2013 CBC 0591784 PLT 250 10e9/L 11/10/2013 CBC 9641173 MPV 11.1 fL 11/10/2013 CBC 7099116 OANH % 58.1 % 11/10/2013 CBC 1848040 LY % 28.5 % 11/10/2013 CBC 1829210 MON % 10.2 % 11/10/2013 CBC 1712927 EOS % 2.1 % 11/10/2013 CBC 7355468 BASO % 1.1 % 11/10/2013 CBC [id number] RDW 13.3 % 11/10/2013 CBC [id number] ABS OANH 4.88 10e9/L 11/10/2013 CBC [id number] ABS LYMPH 2.39 10e9/L 11/10/2013 CBC [id number] ABS MONO 0.86 10e9/L 11/10/2013 CBC [id number] ABS EOS 0.18 10e9/L 11/10/2013 CBC [id number] ABS BASO 0.09 10e9/L 11/10/2013 CBC [id number] RDW-SD 40.7 fL 11/10/2013 CHEM 14 [id number] AST 17 U/L 11/10/2013 CHEM 14 [id number] ALT 17 IU/L 11/10/2013 CHEM 14 [id number] BUN 15 MG/DL 11/10/2013 CHEM 14 [id number] ALBUMIN 4.3 GM/DL 11/10/2013 CHEM 14 [id number] CHLORIDE 103 MMOL/L 11/10/2013 CHEM 14 [id number] BILI TOT 0.6 MG/DL 11/10/2013 CHEM 14 [id number] ALK PHOS 104 U/L 11/10/2013 CHEM 14 [id number] SODIUM 137 MMOL/L 11/10/2013 CHEM 14 [id number] CREATININE 1.08 MG/DL 11/10/2013 CHEM 14 [id number] CALCIUM 8.9 MG/DL 11/10/2013 CHEM 14 [id number] POTASSIUM 4.0 MMOL/L 11/10/2013 CHEM 14 [id number] PROT TOT 7.0 GM/DL 11/10/2013 CHEM 14 [id number] GLUCOSE 84 MG/DL 11/10/2013 CHEM 14 [id number] BICARB 28 MMOL/L 11/10/2013 CHEM 14 [id number] ANION GAP 6 MEQ/L 11/10/2013 Review of Systems System Result Effective Dates Constitutional recent illness 10/06/2017 Constitutional No chills 10/06/2017 Constitutional No diaphoresis 10/06/2017 Constitutional No fever 10/06/2017 Eyes No eye erythema 10/06/2017 Ears/Nose/Throat/Neck nasal allergies 06/2018 Ears/Nose/Throat/Neck nasal discharge 06/2018 Ears/Nose/Throat/Neck postnasal drip 06/2018 Ears/Nose/Throat/Neck sinus congestion Ears/Nose/Throat/Neck No sore throat 06/2018 Cardiovascular No chest pain/pressure 06/2018 Cardiovascular No dyspnea 10/06/2017 Respiratory No chest congestion 2017 Respiratory cough 10/06/2017 Respiratory No dyspnea 10/06/2017 Gastrointestinal No abdominal pain 2017 Gastrointestinal No constipation 2017 Gastrointestinal No diarrhea 10/06/2017 Gastrointestinal No nausea 10/06/2017 Gastrointestinal No vomiting 10/06/2017 Dermatologic No rash 10/06/2017 Neurologic No alteration of consciousness 10/06/2017 Neurologic No mental status change 2017 Constitutional No recent illness 2016 Constitutional No chills 06/23/2017 Constitutional No diaphoresis 06/23/2017 Constitutional No fever 06/23/2017 Eyes No eye erythema 06/23/2017 Ears/Nose/Throat/Neck No nasal allergies 06/23/2017 Ears/Nose/Throat/Neck No nasal discharge 06/23/2017 Cardiovascular No chest pain/pressure Cardiovascular No dyspnea 06/23/2017 Respiratory No cough 06/23/2017 Respiratory No dyspnea 06/23/2017 Gastrointestinal abdominal pain 2016 Gastrointestinal No constipation 2016 Gastrointestinal No diarrhea 06/23/2017 Gastrointestinal gas and bloating 2016 Gastrointestinal No dyspepsia 06/23/2017 Gastrointestinal nausea 06/23/2017 Gastrointestinal No vomiting 06/23/2017 Musculoskeletal joint complaint 2016 Dermatologic No rash 06/23/2017 Neurologic No alteration of consciousness 06/23/2017 Neurologic No mental status change 2016 Constitutional No recent illness 2016 Constitutional No chills 04/14/2017 Constitutional No diaphoresis 04/14/2017 Constitutional No fever 04/14/2017 Eyes No eye erythema 04/14/2017 Ears/Nose/Throat/Neck No nasal allergies 04/14/2017 Ears/Nose/Throat/Neck No nasal discharge 04/14/2017 Cardiovascular No chest pain/pressure Cardiovascular No dyspnea 04/14/2017 Respiratory No dyspnea 04/14/2017 Respiratory No cough 04/14/2017 Gastrointestinal No abdominal pain 2016 Gastrointestinal No vomiting 04/14/2017 Gastrointestinal No nausea 04/14/2017 Gastrointestinal No diarrhea 04/14/2017 Gastrointestinal No constipation 2016 Musculoskeletal back pain 04/14/2017 Musculoskeletal joint complaint 2016 Dermatologic No rash 04/14/2017 Neurologic No alteration of consciousness 04/14/2017 Neurologic No mental status change 2016 Constitutional No recent illness 2016 Constitutional No chills 02/24/2017 Constitutional No diaphoresis 02/24/2017 Constitutional No fever 02/24/2017 Constitutional fatigue 02/24/2017 Eyes No eye erythema 02/24/2017 Ears/Nose/Throat/Neck No nasal allergies 02/24/2017 Ears/Nose/Throat/Neck No nasal discharge 02/24/2017 Cardiovascular No chest pain/pressure Cardiovascular No dyspnea 02/24/2017 Respiratory No cough 02/24/2017 Respiratory No dyspnea 02/24/2017 Gastrointestinal No abdominal pain 2016 Musculoskeletal joint complaint 2016 Dermatologic No rash 02/24/2017 Neurologic No alteration of consciousness 02/24/2017 Neurologic No mental status change 2016 Constitutional No recent illness 2015 Constitutional No anorexia 05/07/2016 Constitutional No night sweats 2015 Constitutional No chills 05/07/2016 Constitutional No diaphoresis 05/07/2016 Constitutional fatigue 05/07/2016 Constitutional No fever 05/07/2016 Constitutional No insomnia 05/07/2016 Constitutional No malaise 05/07/2016 Eyes No eye discharge 05/07/2016 Eyes No eye erythema 05/07/2016 Ears/Nose/Throat/Neck No dizziness 2015 Ears/Nose/Throat/Neck No headache 2015 Ears/Nose/Throat/Neck No nasal allergies 05/07/2016 Ears/Nose/Throat/Neck No nasal discharge 05/07/2016 Respiratory No productive sputum 2015 Respiratory No chest congestion 2015 Respiratory No cough 05/07/2016 Gastrointestinal No abdominal pain 2015 Gastrointestinal No constipation 2015 Gastrointestinal No diarrhea 05/07/2016 Gastrointestinal No nausea 05/07/2016 Gastrointestinal No vomiting 05/07/2016 Genitourinary/Nephrology No dysuria 05/07 Dermatologic No rash 05/07/2016 Dermatologic No sores 05/07/2016 Constitutional No weight loss 05/07/2016 Constitutional No weight gain 05/07/2016 Cardiovascular chest pain/pressure 2015 Cardiovascular No dyspnea 05/07/2016 Cardiovascular No edema 05/07/2016 Musculoskeletal joint complaint 2015 Neurologic No alteration of consciousness 05/07/2016 Constitutional recent illness 03/02/2016 Constitutional No anorexia 03/02/2016 Constitutional No night sweats 2015 Constitutional No chills 03/02/2016 Constitutional No diaphoresis 03/02/2016 Constitutional fatigue 03/02/2016 Constitutional No fever 03/02/2016 Constitutional No insomnia 03/02/2016 Constitutional No malaise 03/02/2016 Constitutional No weight loss 03/02/2016 Constitutional No weight gain 03/02/2016 Eyes No eye discharge 03/02/2016 Eyes No eye erythema 03/02/2016 Ears/Nose/Throat/Neck dizziness 2015 Ears/Nose/Throat/Neck headache 2015 Ears/Nose/Throat/Neck No nasal discharge 03/02/2016 Cardiovascular chest pain/pressure 2015 Cardiovascular fatigue 03/02/2016 Cardiovascular hypertension 03/02/2016 Respiratory No cough 03/02/2016 Respiratory No productive sputum 2015 Gastrointestinal No abdominal pain 2015 Gastrointestinal No constipation 2015 Gastrointestinal No diarrhea 03/02/2016 Genitourinary/Nephrology No dysuria 03/02 Musculoskeletal No joint complaint 2015 Dermatologic No rash 03/02/2016 Dermatologic No sores 03/02/2016 Neurologic No alteration of consciousness 03/02/2016 Psychiatric No anxiety 03/02/2016 Respiratory No cough 10/31/2015 Respiratory No chest tightness 2015 Respiratory No chest congestion 2015 Respiratory No cigarette smoking 2015 Respiratory No productive sputum 2015 Respiratory No dyspnea 10/31/2015 Respiratory No dyspnea on exertion 2015 Cardiovascular No chest pain/pressure 12/2015 Ears/Nose/Throat/Neck nasal discharge 12/2015 Ears/Nose/Throat/Neck No nasal allergies 10/31/2015 Ears/Nose/Throat/Neck headache 2015 Ears/Nose/Throat/Neck otalgia 10/31/2015 Ears/Nose/Throat/Neck otitis media 2015 Ears/Nose/Throat/Neck sinus congestion Ears/Nose/Throat/Neck No sore throat 12/2015 Gastrointestinal No constipation 2015 Gastrointestinal No diarrhea 10/31/2015 Gastrointestinal No vomiting 10/31/2015 Gastrointestinal No nausea 10/31/2015 Eyes eye pain 10/31/2015 Eyes No vision change 10/31/2015 Constitutional No recent illness 2015 Constitutional No anorexia 10/31/2015 Constitutional No night sweats 2015 Constitutional No chills 10/31/2015 Constitutional No diaphoresis 10/31/2015 Constitutional No fatigue 10/31/2015 Constitutional fever 10/31/2015 Constitutional No insomnia 10/31/2015 Constitutional No malaise 10/31/2015 Constitutional No weight loss 10/31/2015 Constitutional No weight gain 10/31/2015 Constitutional No obesity 10/31/2015 Genitourinary/Nephrology No dysuria 10/31 Genitourinary/Nephrology No nocturia 12/2015 Musculoskeletal No muscle weakness 2015 Musculoskeletal joint complaint 2015 Musculoskeletal myalgias 10/31/2015 Musculoskeletal No back pain 10/31/2015 Musculoskeletal stiffness 10/31/2015 Dermatologic No rash 10/31/2015 Dermatologic No sores 10/31/2015 Dermatologic skin lesion 10/31/2015 Psychiatric No depression 10/31/2015 Psychiatric No anxiety 10/31/2015 Constitutional No recent illness 2013 Constitutional No chills 01/25/2014 Constitutional No fatigue 01/25/2014 Constitutional No fever 01/25/2014 Dermatologic rash 01/25/2014 Dermatologic sores 01/25/2014 Psychiatric No anxiety 01/25/2014 Cardiovascular No chest pain/pressure 09/2013 Cardiovascular No dyspnea 01/25/2014 Respiratory No cough 01/25/2014 Respiratory No chest congestion 2013 Constitutional No fatigue 11/29/2013 Constitutional recent illness 11/29/2013 Ears/Nose/Throat/Neck No facial pain 01/2014 Ears/Nose/Throat/Neck headache 2013 Ears/Nose/Throat/Neck nasal discharge 01/2014 Ears/Nose/Throat/Neck No sinusitis 2013 Ears/Nose/Throat/Neck No sore throat 01/2014 Cardiovascular No chest pain/pressure 01/2014 Cardiovascular No dyspnea 11/29/2013 Cardiovascular No edema 11/29/2013 Cardiovascular No fatigue 11/29/2013 Cardiovascular No syncope 11/29/2013 Respiratory No chest tightness 2013 Respiratory No cigarette smoking 2013 Respiratory No cough 11/29/2013 Respiratory No dyspnea 11/29/2013 Respiratory No wheezing 11/29/2013 Gastrointestinal No constipation 2013 Gastrointestinal No diarrhea 11/29/2013 Gastrointestinal No dyspepsia 11/29/2013 Gastrointestinal No nausea 11/29/2013 Musculoskeletal No muscle weakness 2013 Musculoskeletal No myalgias 11/29/2013 Dermatologic No rash 11/29/2013 Neurologic No ataxia 11/29/2013 Neurologic No dizziness 11/29/2013 Neurologic No pain, facial 11/29/2013 Psychiatric No anxiety 11/29/2013 Psychiatric No depression 11/29/2013 Constitutional No recent illness 2013 Constitutional No anorexia 11/10/2013 Constitutional No night sweats 2013 Constitutional No chills 11/10/2013 Constitutional No diaphoresis 11/10/2013 Constitutional No fatigue 11/10/2013 Constitutional No fever 11/10/2013 Constitutional No malaise 11/10/2013 Constitutional No insomnia 11/10/2013 Eyes No eye discharge 11/10/2013 Eyes No eye erythema 11/10/2013 Ears/Nose/Throat/Neck No dizziness 2013 Ears/Nose/Throat/Neck No headache 2013 Ears/Nose/Throat/Neck No nasal discharge 11/10/2013 Ears/Nose/Throat/Neck No nasal allergies 11/10/2013 Respiratory No productive sputum 2013 Respiratory No chest congestion 2013 Respiratory No cough 11/10/2013 Gastrointestinal No abdominal pain 2013 Gastrointestinal No constipation 2013 Gastrointestinal No diarrhea 11/10/2013 Gastrointestinal No nausea 11/10/2013 Gastrointestinal No vomiting 11/10/2013 Genitourinary/Nephrology No dysuria 11/10 Dermatologic No sores 11/10/2013 Dermatologic No rash 11/10/2013 Constitutional No recent illness 2012 Constitutional No chills 05/10/2013 Constitutional No fatigue 05/10/2013 Constitutional No fever 05/10/2013 Constitutional No insomnia 05/10/2013 Constitutional No malaise 05/10/2013 Eyes No blindness 05/10/2013 Eyes No vision change 05/10/2013 Ears/Nose/Throat/Neck No dental pain Ears/Nose/Throat/Neck No dizziness 2012 Ears/Nose/Throat/Neck No dysphagia 2012 Ears/Nose/Throat/Neck No headache 2012 Ears/Nose/Throat/Neck No hearing loss Ears/Nose/Throat/Neck No nasal allergies 05/10/2013 Ears/Nose/Throat/Neck No sore throat Ears/Nose/Throat/Neck No postnasal drip 05/10/2013 Ears/Nose/Throat/Neck No sinus congestion 05/10/2013 Respiratory No chest tightness 2012 Respiratory No cigarette smoking 2012 Respiratory No cough 05/10/2013 Respiratory No dyspnea 05/10/2013 Respiratory No pedal edema 05/10/2013 Respiratory No snoring 05/10/2013 Respiratory No wheezing 05/10/2013 Gastrointestinal No hemorrhoids 2012 Gastrointestinal No abdominal pain 2012 Gastrointestinal No constipation 2012 Gastrointestinal No diarrhea 05/10/2013 Gastrointestinal No gastroesophageal reflux 05/10/2013 Gastrointestinal No melena 05/10/2013 Gastrointestinal No nausea 05/10/2013 Gastrointestinal No vomiting 05/10/2013 Musculoskeletal stiffness 05/10/2013 Musculoskeletal No swelling 05/10/2013 Musculoskeletal arthralgia(s) 05/10/2013 Musculoskeletal joint complaint 2012 Musculoskeletal No muscle weakness 2012 Musculoskeletal myalgias 05/10/2013 Dermatologic No rash 05/10/2013 Dermatologic No scar 05/10/2013 Neurologic No dizziness 05/10/2013 Neurologic No headache 05/10/2013 Neurologic No neck pain 05/10/2013 Neurologic No syncope 05/10/2013 Psychiatric No anxiety 05/10/2013 Psychiatric No depression 05/10/2013 Constitutional No chills 02/23/2013 Constitutional No fever 02/23/2013 Constitutional No insomnia 02/23/2013 Constitutional No malaise 02/23/2013 Dermatologic No scar 02/23/2013 Neurologic No dizziness 02/23/2013 Neurologic No headache 02/23/2013 Neurologic No neck pain 02/23/2013 Neurologic No syncope 02/23/2013 Psychiatric No anxiety 02/23/2013 Psychiatric No depression 02/23/2013 Eyes No blindness 02/23/2013 Eyes No vision change 02/23/2013 Respiratory No chest tightness 2012 Respiratory No cigarette smoking 2012 Respiratory No cough 02/23/2013 Respiratory No dyspnea 02/23/2013 Respiratory No pedal edema 02/23/2013 Respiratory No snoring 02/23/2013 Respiratory No wheezing 02/23/2013 Gastrointestinal No hemorrhoids 2012 Gastrointestinal No abdominal pain 2012 Gastrointestinal No constipation 2012 Gastrointestinal No diarrhea 02/23/2013 Gastrointestinal gastroesophageal reflux 02/23/2013 Gastrointestinal No melena 02/23/2013 Gastrointestinal No nausea 02/23/2013 Gastrointestinal No vomiting 02/23/2013 Musculoskeletal stiffness 02/23/2013 Musculoskeletal No swelling 02/23/2013 Musculoskeletal arthralgia(s) 02/23/2013 Musculoskeletal joint complaint 2012 Musculoskeletal No muscle weakness 2012 Musculoskeletal myalgias 02/23/2013 Dermatologic No rash 02/23/2013 Constitutional No recent illness 2012 Constitutional No chills 01/12/2013 Constitutional No fatigue 01/12/2013 Constitutional No fever 01/12/2013 Constitutional No insomnia 01/12/2013 Constitutional No malaise 01/12/2013 Eyes No blindness 01/12/2013 Eyes No vision change 01/12/2013 Ears/Nose/Throat/Neck No dental pain Ears/Nose/Throat/Neck No dizziness 2012 Ears/Nose/Throat/Neck No dysphagia 2012 Ears/Nose/Throat/Neck No headache 2012 Ears/Nose/Throat/Neck No hearing loss Ears/Nose/Throat/Neck No nasal allergies 01/12/2013 Ears/Nose/Throat/Neck No sore throat Ears/Nose/Throat/Neck No postnasal drip 01/12/2013 Ears/Nose/Throat/Neck No sinus congestion 01/12/2013 Respiratory No chest tightness 2012 Respiratory No cigarette smoking 2012 Respiratory No cough 01/12/2013 Respiratory No dyspnea 01/12/2013 Respiratory No pedal edema 01/12/2013 Respiratory No snoring 01/12/2013 Respiratory No wheezing 01/12/2013 Gastrointestinal No hemorrhoids 2012 Gastrointestinal No abdominal pain 2012 Gastrointestinal No constipation 2012 Gastrointestinal No diarrhea 01/12/2013 Gastrointestinal No gastroesophageal reflux 01/12/2013 Gastrointestinal No melena 01/12/2013 Gastrointestinal No nausea 01/12/2013 Gastrointestinal No vomiting 01/12/2013 Musculoskeletal stiffness 01/12/2013 Musculoskeletal No swelling 01/12/2013 Musculoskeletal arthralgia(s) 01/12/2013 Musculoskeletal joint complaint 2012 Musculoskeletal No muscle weakness 2012 Musculoskeletal myalgias 01/12/2013 Dermatologic No rash 01/12/2013 Dermatologic No scar 01/12/2013 Neurologic No dizziness 01/12/2013 Neurologic No headache 01/12/2013 Neurologic No neck pain 01/12/2013 Neurologic No syncope 01/12/2013 Psychiatric No anxiety 01/12/2013 Psychiatric No depression 01/12/2013 Constitutional No recent illness 2012 Constitutional No chills 11/30/2012 Constitutional No fatigue 11/30/2012 Constitutional No fever 11/30/2012 Constitutional No insomnia 11/30/2012 Constitutional No malaise 11/30/2012 Eyes No blindness 11/30/2012 Eyes No vision change 11/30/2012 Ears/Nose/Throat/Neck No dental pain 02/2013 Ears/Nose/Throat/Neck No dizziness 2012 Ears/Nose/Throat/Neck No dysphagia 2012 Ears/Nose/Throat/Neck No headache 2012 Ears/Nose/Throat/Neck No hearing loss 02/2013 Ears/Nose/Throat/Neck No nasal allergies 11/30/2012 Ears/Nose/Throat/Neck No sore throat 02/2013 Ears/Nose/Throat/Neck No postnasal drip 11/30/2012 Ears/Nose/Throat/Neck No sinus congestion 11/30/2012 Respiratory No chest tightness 2012 Respiratory No cigarette smoking 2012 Respiratory No cough 11/30/2012 Respiratory No dyspnea 11/30/2012 Respiratory No pedal edema 11/30/2012 Respiratory No snoring 11/30/2012 Respiratory No wheezing 11/30/2012 Gastrointestinal No hemorrhoids 2012 Gastrointestinal No abdominal pain 2012 Gastrointestinal No constipation 2012 Gastrointestinal No diarrhea 11/30/2012 Gastrointestinal No gastroesophageal reflux 11/30/2012 Gastrointestinal No melena 11/30/2012 Gastrointestinal No nausea 11/30/2012 Gastrointestinal No vomiting 11/30/2012 Musculoskeletal stiffness 11/30/2012 Musculoskeletal No swelling 11/30/2012 Musculoskeletal arthralgia(s) 11/30/2012 Musculoskeletal joint complaint 2012 Musculoskeletal No muscle weakness 2012 Musculoskeletal myalgias 11/30/2012 Dermatologic No rash 11/30/2012 Dermatologic No scar 11/30/2012 Neurologic No dizziness 11/30/2012 Neurologic No headache 11/30/2012 Neurologic No neck pain 11/30/2012 Neurologic No syncope 11/30/2012 Psychiatric No anxiety 11/30/2012 Psychiatric No depression 11/30/2012 Constitutional No recent illness 2012 Constitutional No chills 11/09/2012 Constitutional No fatigue 11/09/2012 Constitutional No fever 11/09/2012 Constitutional No insomnia 11/09/2012 Constitutional No malaise 11/09/2012 Eyes No blindness 11/09/2012 Eyes No vision change 11/09/2012 Ears/Nose/Throat/Neck No dental pain Ears/Nose/Throat/Neck No dizziness 2012 Ears/Nose/Throat/Neck No dysphagia 2012 Ears/Nose/Throat/Neck No headache 2012 Ears/Nose/Throat/Neck No hearing loss Ears/Nose/Throat/Neck No nasal allergies 11/09/2012 Ears/Nose/Throat/Neck No sore throat Ears/Nose/Throat/Neck No postnasal drip 11/09/2012 Ears/Nose/Throat/Neck No sinus congestion 11/09/2012 Respiratory No chest tightness 2012 Respiratory No cigarette smoking 2012 Respiratory No cough 11/09/2012 Respiratory No dyspnea 11/09/2012 Respiratory No pedal edema 11/09/2012 Respiratory No snoring 11/09/2012 Respiratory No wheezing 11/09/2012 Gastrointestinal No hemorrhoids 2012 Gastrointestinal No abdominal pain 2012 Gastrointestinal No constipation 2012 Gastrointestinal No diarrhea 11/09/2012 Gastrointestinal No gastroesophageal reflux 11/09/2012 Gastrointestinal No melena 11/09/2012 Gastrointestinal No nausea 11/09/2012 Gastrointestinal No vomiting 11/09/2012 Musculoskeletal stiffness 11/09/2012 Musculoskeletal No swelling 11/09/2012 Musculoskeletal No muscle weakness 2012 Musculoskeletal myalgias 11/09/2012 Musculoskeletal arthralgia(s) 11/09/2012 Musculoskeletal joint complaint 2012 Psychiatric No anxiety 11/09/2012 Psychiatric No depression 11/09/2012 Neurologic No dizziness 11/09/2012 Neurologic No headache 11/09/2012 Neurologic No neck pain 11/09/2012 Neurologic No syncope 11/09/2012 Dermatologic No rash 11/09/2012 Dermatologic No scar 11/09/2012 Physical Exam Exam Name System Name Item Name Status Result Effective Dates Notes Full Exam - ENT Constitutional general appearance Overall: well nourished 10/06/2017 None Full Exam - ENT Constitutional general appearance Overall: well developed 10/06/2017 None Full Exam - ENT Constitutional general appearance Overall: in no acute distress 10/06/2017 None Full Exam - ENT Ears/Nose/Throat otoscopic exam Overall: external auditory canals normal 10/06/2017 None Full Exam - ENT Ears/Nose/Throat otoscopic exam Left tympanic membrane: air -fluid level 10/06/2017 None Full Exam - ENT Ears/Nose/Throat otoscopic exam Right tympanic membrane: air-fluid level 10/06/2017 None Full Exam - ENT Ears/Nose/Throat nasal mucosa, septum, turbinates Drainage: clear 10/06/2017 None Full Exam - ENT Ears/Nose/Throat nasal mucosa, septum, turbinates Drainage: yellow 10/06/2017 None Full Exam - ENT Ears/Nose/Throat lips/ teeth/gingiva Overall: benign lips 10/06/2017 None Full Exam - ENT Ears/Nose/Throat oropharynx Posterior Pharynx: clear post nasal drainage 10/06/2017 None Full Exam - ENT Face and Head palpation Left maxillary sinus: tender 10/06/2017 None Full Exam - ENT Face and Head palpation Right maxillary sinus: tender 10/06/2017 None Full Exam - ENT Respiratory inspection Overall: no retractions 10/06/2017 None Full Exam - ENT Respiratory inspection Overall: normal rate 06/2018 None Full Exam - ENT Respiratory auscultation Overall: breath sounds clear bilaterally 10/06/2017 None Full Exam - ENT Cardiovascular auscultation of heart Overall: regular rate 10/06/2017 None Full Exam - ENT Cardiovascular auscultation of heart Overall: normal heart sounds 10/06/2017 None Full Exam - ENT Lymphatic palpation of lymph nodes Overall: anterior cervical chain benign 10/06/2017 None Full Exam - ENT Lymphatic palpation of lymph nodes Overall: posterior cervical chain benign 10/06/2017 None Full Exam - ENT Neurologic mood and affect Overall: normal mood 10/06/2017 None Full Exam - ENT Neurologic mood and affect Overall: normal affect 10/06/2017 None Full Exam - ENT Neurologic orientation Overall: oriented to person, place and time 10/06/2017 None Full Exam - General 1994 Constitutional general appearance Overall: well developed 06/23/2017 None Full Exam - General 1994 Constitutional general appearance Overall: in no acute distress 06/23/2017 None Full Exam - General 1994 Constitutional general appearance Overall: well nourished 06/23/2017 None Full Exam - General 1994 Eyes conjunctiva /eyelids Overall: conjunctiva clear 06/23/2017 None Full Exam - General 1994 Eyes conjunctiva /eyelids Overall: eyelids normal 06/23/2017 None Full Exam - General 1994 Ears/Nose/Throat lips/teeth/gingiva Overall: benign lips 06/23/2017 None Full Exam - General 1994 Ears/Nose/Throat oral cavity/pharynx/larynx Overall: oral mucosa clear 06/23/2017 None Full Exam - General 1994 Respiratory auscultation Overall: breath sounds clear bilaterally 06/23/2017 None Full Exam - General 1994 Respiratory respiratory effort/rhythm Overall: normal rate 06/23/2017 None Full Exam - General 1994 Respiratory respiratory effort/rhythm Overall: no retractions 06/23/2017 None Full Exam - General 1994 Cardiovascular auscultation of heart Overall: normal heart sounds 06/23/2017 None Full Exam - General 1994 Cardiovascular auscultation of heart Overall: regular rate 06/23/2017 None Full Exam - General 1994 Abdomen abdominal exam Overall: normal bowel sounds 06/23/2017 None Full Exam - General 1994 Abdomen abdominal exam Percussion: tympanitic 06/23/2017 None Full Exam - General 1994 Abdomen abdominal exam Upper quadrant: tender to palpation 06/23/2017 None Full Exam - General 1994 Abdomen abdominal exam Upper quadrant: dull pain 06/23/2017 None Full Exam - General 1994 Abdomen abdominal exam Upper quadrant: no guarding 06/23/2017 None Full Exam - General 1994 Abdomen abdominal exam Upper quadrant: no rebound tenderness 06/23/2017 None Full Exam - General 1994 Abdomen abdominal exam Upper quadrant: soft 06/23/2017 None Full Exam - General 1994 Abdomen abdominal exam Lower quadrant: non-tender to palpation 06/23/2017 None Full Exam - General 1994 Abdomen abdominal exam Lower quadrant: no guarding 06/23/2017 None Full Exam - General 1994 Abdomen abdominal exam Lower quadrant: no rebound tenderness 06/23/2017 None Full Exam - General 1994 Abdomen abdominal exam Lower quadrant: soft 06/23/2017 None Full Exam - General 1994 Musculoskeletal head and neck Overall: head atraumatic 06/23/2017 None Full Exam - General 1994 Musculoskeletal gait and station Overall: normal station 06/23/2017 None Full Exam - General 1994 Musculoskeletal gait and station Overall: normal gait 06/23/2017 None Full Exam - General 1994 Neurologic cranial nerves Overall: crainial nerves 2 - 12 grossly intact 06/23/2017 None Full Exam - General 1994 Psychiatric orientation/consciousness Overall: oriented to person, place and time 06/23/2017 None Full Exam - General 1994 Psychiatric mood and affect Overall: normal mood and affect 06/23/2017 None Full Exam - General 1994 Psychiatric appearance Overall: well-groomed, good eye contact 06/23/2017 None Full Exam - General 1994 Musculoskeletal upper extremity Palpation - elbow: tender medial epicondyle 06/23/2017 None Full Exam - General 1994 Musculoskeletal upper extremity Palpation - elbow: tender lateral epicondyle 06/23/2017 None Full Exam - General 1994 Musculoskeletal upper extremity ROM - elbow: pain with flexion 06/23/2017 None Full Exam - General 1994 Constitutional general appearance Overall: well developed 04/14/2017 None Full Exam - General 1994 Constitutional general appearance Overall: in no acute distress 04/14/2017 None Full Exam - General 1994 Constitutional general appearance Overall: well nourished 04/14/2017 None Full Exam - General 1994 Eyes conjunctiva /eyelids Overall: conjunctiva clear 04/14/2017 None Full Exam - General 1994 Eyes conjunctiva /eyelids Overall: eyelids normal 04/14/2017 None Full Exam - General 1994 Ears/Nose/Throat oral cavity/pharynx/larynx Overall: oral mucosa clear 04/14/2017 None Full Exam - General 1994 Ears/Nose/Throat lips/teeth/gingiva Overall: benign lips 04/14/2017 None Full Exam - General 1994 Respiratory respiratory effort/rhythm Overall: no retractions 04/14/2017 None Full Exam - General 1994 Respiratory respiratory effort/rhythm Overall: normal rate 04/14/2017 None Full Exam - General 1994 Respiratory auscultation Overall: breath sounds clear bilaterally 04/14/2017 None Full Exam - General 1994 Cardiovascular auscultation of heart Overall: regular rate 04/14/2017 None Full Exam - General 1994 Cardiovascular auscultation of heart Overall: normal heart sounds 04/14/2017 None Full Exam - General 1994 Musculoskeletal gait and station Overall: normal gait 04/14/2017 None Full Exam - General 1994 Musculoskeletal gait and station Overall: normal station 04/14/2017 None Full Exam - General 1994 Musculoskeletal head and neck Overall: head atraumatic 04/14/2017 None Full Exam - General 1994 Neurologic cranial nerves Overall: crainial nerves 2 - 12 grossly intact 04/14/2017 None Full Exam - General 1994 Psychiatric orientation/consciousness Overall: oriented to person, place and time 04/14/2017 None Full Exam - General 1994 Psychiatric mood and affect Overall: normal mood and affect 04/14/2017 None Full Exam - General 1994 Psychiatric appearance Overall: well-groomed, good eye contact 04/14/2017 None Full Exam - General 1994 Musculoskeletal spine, ribs and pelvis Spine: tender @ thoracic spine 04/14/2017 None Full Exam - General 1994 Constitutional general appearance Overall: well developed 02/24/2017 None Full Exam - General 1994 Constitutional general appearance Overall: in no acute distress 02/24/2017 None Full Exam - General 1994 Constitutional general appearance Overall: well nourished 02/24/2017 None Full Exam - General 1994 Eyes conjunctiva /eyelids Overall: conjunctiva clear 02/24/2017 None Full Exam - General 1994 Eyes conjunctiva /eyelids Overall: eyelids normal 02/24/2017 None Full Exam - General 1994 Ears/Nose/Throat otoscopic exam Overall: external auditory canals clear 02/24/2017 None Full Exam - General 1994 Ears/Nose/Throat otoscopic exam Overall: tympanic membranes clear 02/24/2017 None Full Exam - General 1994 Ears/Nose/Throat oral cavity/pharynx/larynx Overall: oral mucosa clear 02/24/2017 None Full Exam - General 1994 Ears/Nose/Throat oral cavity/pharynx/larynx Overall: oropharyngeal mucosa clear 02/24/2017 None Full Exam - General 1994 Ears/Nose/Throat oral cavity/pharynx/larynx Overall: no masses 02/24/2017 None Full Exam - General 1994 Respiratory auscultation Overall: breath sounds clear bilaterally 02/24/2017 None Full Exam - General 1994 Respiratory respiratory effort/rhythm Overall: no retractions 02/24/2017 None Full Exam - General 1994 Respiratory respiratory effort/rhythm Overall: normal rate 02/24/2017 None Full Exam - General 1994 Cardiovascular extremities Overall: no clubbing 02/24/2017 None Full Exam - General 1994 Cardiovascular auscultation of heart Overall: regular rate 02/24/2017 None Full Exam - General 1994 Cardiovascular auscultation of heart Overall: normal heart sounds 02/24/2017 None Full Exam - General 1994 Abdomen abdominal exam Overall: no tenderness 02/24/2017 None Full Exam - General 1994 Abdomen abdominal exam Overall: normal bowel sounds 02/24/2017 None Full Exam - General 1994 Musculoskeletal head and neck Overall: head atraumatic 02/24/2017 None Full Exam - General 1994 Psychiatric orientation/consciousness Overall: oriented to person, place and time 02/24/2017 None Full Exam - General 1994 Psychiatric mood and affect Overall: normal mood and affect 02/24/2017 None Full Exam - General 1994 Psychiatric mood and affect Mood: happy 02/24/2017 None Full Exam - General 1994 Ears/Nose/Throat lips/teeth/gingiva Overall: benign lips 02/24/2017 None Full Exam - General 1994 Musculoskeletal gait and station Overall: normal gait 02/24/2017 None Full Exam - General 1994 Musculoskeletal gait and station Overall: normal station 02/24/2017 None Full Exam - General 1994 Musculoskeletal upper extremity ROM - elbow: pain with flexion 02/24/2017 None Full Exam - General 1994 Musculoskeletal upper extremity ROM - wrist: pain with flexion 02/24/2017 None Full Exam - General 1994 Neurologic cranial nerves Overall: crainial nerves 2 - 12 grossly intact 02/24/2017 None Full Exam - General 1994 Constitutional general appearance Overall: well developed 05/07/2016 None Full Exam - General 1994 Constitutional general appearance Overall: in no acute distress 05/07/2016 None Full Exam - General 1994 Constitutional general appearance Overall: well nourished 05/07/2016 None Full Exam - General 1994 Eyes pupils and irises Overall: pupils equal, round, reactive to light and accomodation 05/07/2016 None Full Exam - General 1994 Ears/Nose/Throat otoscopic exam Overall: external auditory canals clear 05/07/2016 None Full Exam - General 1994 Ears/Nose/Throat otoscopic exam Overall: tympanic membranes clear 05/07/2016 None Full Exam - General 1994 Ears/Nose/Throat oral cavity/pharynx/larynx Overall: oral mucosa clear 05/07/2016 None Full Exam - General 1994 Ears/Nose/Throat oral cavity/pharynx/larynx Overall: oropharyngeal mucosa clear 05/07/2016 None Full Exam - General 1994 Ears/Nose/Throat oral cavity/pharynx/larynx Overall: no masses 05/07/2016 None Full Exam - General 1994 Respiratory auscultation Overall: breath sounds clear bilaterally 05/07/2016 None Full Exam - General 1994 Respiratory respiratory effort/rhythm Overall: no retractions 05/07/2016 None Full Exam - General 1994 Respiratory respiratory effort/rhythm Overall: normal rate 05/07/2016 None Full Exam - General 1994 Cardiovascular extremities Overall: no clubbing 05/07/2016 None Full Exam - General 1994 Cardiovascular auscultation of heart Overall: regular rate 05/07/2016 None Full Exam - General 1994 Cardiovascular auscultation of heart Overall: normal heart sounds 05/07/2016 None Full Exam - General 1994 Abdomen abdominal exam Overall: no tenderness 05/07/2016 None Full Exam - General 1994 Abdomen abdominal exam Overall: normal bowel sounds 05/07/2016 None Full Exam - General 1994 Musculoskeletal head and neck Overall: head atraumatic 05/07/2016 None Full Exam - General 1994 Musculoskeletal head and neck Overall: cervical spine benign 05/07/2016 None Full Exam - General 1994 Psychiatric orientation/consciousness Overall: oriented to person, place and time 05/07/2016 None Full Exam - General 1994 Psychiatric mood and affect Overall: normal mood and affect 05/07/2016 None Full Exam - General 1994 Psychiatric mood and affect Mood: happy 05/07/2016 None Full Exam - General 1994 Constitutional general appearance Overall: well developed 03/02/2016 None Full Exam - General 1994 Constitutional general appearance Overall: in no acute distress 03/02/2016 None Full Exam - General 1994 Constitutional general appearance Overall: well nourished 03/02/2016 None Full Exam - General 1994 Eyes pupils and irises Overall: pupils equal, round, reactive to light and accomodation 03/02/2016 None Full Exam - General 1994 Ears/Nose/Throat otoscopic exam Overall: external auditory canals clear 03/02/2016 None Full Exam - General 1994 Ears/Nose/Throat otoscopic exam Overall: tympanic membranes clear 03/02/2016 None Full Exam - General 1994 Ears/Nose/Throat oral cavity/pharynx/larynx Overall: oral mucosa clear 03/02/2016 None Full Exam - General 1994 Ears/Nose/Throat oral cavity/pharynx/larynx Overall: oropharyngeal mucosa clear 03/02/2016 None Full Exam - General 1994 Ears/Nose/Throat oral cavity/pharynx/larynx Overall: no masses 03/02/2016 None Full Exam - General 1994 Respiratory auscultation Overall: breath sounds clear bilaterally 03/02/2016 None Full Exam - General 1994 Respiratory respiratory effort/rhythm Overall: no retractions 03/02/2016 None Full Exam - General 1994 Respiratory respiratory effort/rhythm Overall: normal rate 03/02/2016 None Full Exam - General 1994 Cardiovascular extremities Overall: no clubbing 03/02/2016 None Full Exam - General 1994 Cardiovascular auscultation of heart Overall: regular rate 03/02/2016 None Full Exam - General 1994 Cardiovascular auscultation of heart Overall: normal heart sounds 03/02/2016 None Full Exam - General 1994 Abdomen abdominal exam Overall: no tenderness 03/02/2016 None Full Exam - General 1994 Abdomen abdominal exam Overall: normal bowel sounds 03/02/2016 None Full Exam - General 1994 Musculoskeletal head and neck Overall: head atraumatic 03/02/2016 None Full Exam - General 1994 Musculoskeletal head and neck Overall: cervical spine benign 03/02/2016 None Full Exam - General 1994 Psychiatric orientation/consciousness Overall: oriented to person, place and time 03/02/2016 None Full Exam - General 1994 Psychiatric mood and affect Overall: normal mood and affect 03/02/2016 None Full Exam - General 1994 Psychiatric mood and affect Mood: happy 03/02/2016 None Full Exam - General 1994 Constitutional general appearance Overall: well nourished 10/31/2015 None Full Exam - General 1994 Constitutional general appearance Overall: well developed 10/31/2015 None Full Exam - General 1994 Constitutional general appearance Overall: in no acute distress 10/31/2015 None Full Exam - General 1994 Eyes pupils and irises Overall: pupils equal, round, reactive to light and accomodation 10/31/2015 None Full Exam - General 1994 Eyes conjunctiva /eyelids Overall: conjunctiva clear 10/31/2015 None Full Exam - General 1994 Eyes conjunctiva /eyelids Overall: eyelids normal 10/31/2015 None Full Exam - General 1994 Eyes conjunctiva /eyelids Overall: cornea clear 10/31/2015 None Full Exam - General 1994 Ears/Nose/Throat oral cavity/pharynx/larynx Overall: oropharyngeal mucosa clear 10/31/2015 None Full Exam - General 1994 Ears/Nose/Throat oral cavity/pharynx/larynx Overall: no masses 10/31/2015 None Full Exam - General 1994 Ears/Nose/Throat oral cavity/pharynx/larynx Overall: oral mucosa clear 10/31/2015 None Full Exam - General 1994 Ears/Nose/Throat internal nose Overall: no sinus tenderness 10/31/2015 None Full Exam - General 1994 Ears/Nose/Throat internal nose Drainage: clear 10/31/2015 None Full Exam - General 1994 Ears/Nose/Throat lips/teeth/gingiva Overall: benign gingiva 10/31/2015 None Full Exam - General 1994 Ears/Nose/Throat lips/teeth/gingiva Overall: no masses 10/31/2015 None Full Exam - General 1994 Ears/Nose/Throat lips/teeth/gingiva Overall: normal dentition 10/31/2015 None Full Exam - General 1994 Ears/Nose/Throat lips/teeth/gingiva Overall: benign lips 10/31/2015 None Full Exam - General 1994 Ears/Nose/Throat otoscopic exam Overall: tympanic membranes clear 10/31/2015 None Full Exam - General 1994 Ears/Nose/Throat otoscopic exam Overall: external auditory canals clear 10/31/2015 None Full Exam - General 1994 Ears/Nose/Throat external ear Overall: no masses 10/31/2015 None Full Exam - General 1994 Ears/Nose/Throat external ear Overall: normal appearance 10/31/2015 None Full Exam - General 1994 Ears/Nose/Throat external ear Overall: normal mastoids 10/31/2015 None Full Exam - General 1994 Ears/Nose/Throat external ear Auricle: lesion 10/31/2015 OCCASSIONALLY SCABS Full Exam - General 1994 Ears/Nose/Throat external nose Lesion: left 10/31/2015 None Full Exam - General 1994 Ears/Nose/Throat external nose Lesion: erythematous 10/31/2015 MILD Full Exam - General 1994 Ears/Nose/Throat external nose Lesion: flat 10/31/2015 None Full Exam - General 1994 Respiratory auscultation Overall: breath sounds clear bilaterally 10/31/2015 None Full Exam - General 1994 Respiratory respiratory effort/rhythm Overall: normal rate 10/31/2015 None Full Exam - General 1994 Respiratory respiratory effort/rhythm Overall: no retractions 10/31/2015 None Full Exam - General 1994 Cardiovascular auscultation of heart Overall: regular rate 10/31/2015 None Full Exam - General 1994 Cardiovascular auscultation of heart Overall: normal heart sounds 10/31/2015 None Full Exam - General 1994 Cardiovascular auscultation of heart Overall: no murmurs 10/31/2015 None Full Exam - General 1994 Cardiovascular extremities Overall: no clubbing 10/31/2015 None Full Exam - General 1994 Abdomen abdominal exam Overall: no tenderness 10/31/2015 None Full Exam - General 1994 Abdomen abdominal exam Overall: normal bowel sounds 10/31/2015 None Full Exam - General 1994 Musculoskeletal gait and station Overall: normal station 10/31/2015 None Full Exam - General 1994 Musculoskeletal gait and station Overall: normal gait 10/31/2015 None Full Exam - General 1994 Integument inspection of skin Overall: no rash, lesions 10/31/2015 None Full Exam - General 1994 Psychiatric orientation/consciousness Overall: oriented to person, place and time 10/31/2015 None Full Exam - General 1994 Psychiatric mood and affect Overall: normal mood and affect 10/31/2015 None Full Exam - General 1994 Psychiatric appearance Overall: well-groomed, good eye contact 10/31/2015 None Full Exam - General 1994 Ears/Nose/Throat oral cavity/pharynx/larynx Submandibular gland: tender 10/31/2015 None Full Exam - General 1994 Ears/Nose/Throat oral cavity/pharynx/larynx Submandibular gland: soft 10/31/2015 None Full Exam - General 1994 Constitutional general appearance Overall: well nourished 01/25/2014 None Full Exam - General 1994 Constitutional general appearance Overall: well developed 01/25/2014 None Full Exam - General 1994 Constitutional general appearance Overall: in no acute distress 01/25/2014 None Full Exam - General 1994 Psychiatric orientation/consciousness Overall: oriented to person, place and time 01/25/2014 None Full Exam - General 1994 Integument inspection of skin Dermatitis: erythema 01/25/2014 around bite scott on knee Full Exam - Cardiology Constitutional general appearance Overall: well nourished 11/29/2013 None Full Exam - Cardiology Constitutional general appearance Overall: well developed 11/29/2013 None Full Exam - Cardiology Constitutional general appearance Overall: in no acute distress 11/29/2013 None Full Exam - Cardiology Constitutional general appearance Nourishment: well nourished 11/29/2013 None Full Exam - Cardiology Ears/Nose/Throat teeth/gingiva/palate Overall: normal dentition 11/29/2013 None Full Exam - Cardiology Ears/Nose/Throat oral mucosa Oral mucosa: moist 11/29/2013 None Full Exam - Cardiology Respiratory respiratory effort/rhythm Overall: no retractions 11/29/2013 None Full Exam - Cardiology Respiratory auscultation Overall: breath sounds clear bilaterally 11/29/2013 None Full Exam - Cardiology Cardiovascular auscultation of heart Overall: regular rate 11/29/2013 None Full Exam - Cardiology Cardiovascular auscultation of heart Overall: normal heart sounds 11/29/2013 None Full Exam - Cardiology Cardiovascular extremities Overall: no clubbing 11/29/2013 None Full Exam - Cardiology Lymphatic neck nodes Overall: shotty lymphadenopathy 11/29/2013 None Full Exam - Cardiology Musculoskeletal gait and station Overall: normal gait 11/29/2013 None Full Exam - Cardiology Neurologic cranial nerves Overall: cranial nerves 1- 12 intact 11/29/2013 None Full Exam - Cardiology Psychiatric orientation/consciousness Overall: oriented to person, place and time 11/29/2013 None Full Exam - Cardiology Psychiatric mood and affect Overall: normal mood and affect 11/29/2013 None Full Exam - General 1994 Constitutional general appearance Overall: well developed 11/10/2013 None Full Exam - General 1994 Constitutional general appearance Overall: in no acute distress 11/10/2013 None Full Exam - General 1994 Constitutional general appearance Overall: well nourished 11/10/2013 None Full Exam - General 1994 Eyes pupils and irises Overall: pupils equal, round, reactive to light and accomodation 11/10/2013 None Full Exam - General 1994 Ears/Nose/Throat otoscopic exam Overall: external auditory canals clear 11/10/2013 None Full Exam - General 1994 Ears/Nose/Throat otoscopic exam Overall: tympanic membranes clear 11/10/2013 None Full Exam - General 1994 Ears/Nose/Throat oral cavity/pharynx/larynx Overall: oral mucosa clear 11/10/2013 None Full Exam - General 1994 Ears/Nose/Throat oral cavity/pharynx/larynx Overall: oropharyngeal mucosa clear 11/10/2013 None Full Exam - General 1994 Ears/Nose/Throat oral cavity/pharynx/larynx Overall: no masses 11/10/2013 None Full Exam - General 1994 Respiratory auscultation Overall: breath sounds clear bilaterally 11/10/2013 None Full Exam - General 1994 Respiratory respiratory effort/rhythm Overall: no retractions 11/10/2013 None Full Exam - General 1994 Respiratory respiratory effort/rhythm Overall: normal rate 11/10/2013 None Full Exam - General 1994 Cardiovascular extremities Overall: no clubbing 11/10/2013 None Full Exam - General 1994 Cardiovascular auscultation of heart Overall: regular rate 11/10/2013 None Full Exam - General 1994 Cardiovascular auscultation of heart Overall: normal heart sounds 11/10/2013 None Full Exam - General 1994 Musculoskeletal head and neck Overall: head atraumatic 11/10/2013 None Full Exam - General 1994 Musculoskeletal head and neck Overall: cervical spine benign 11/10/2013 None Full Exam - General 1994 Psychiatric orientation/consciousness Overall: oriented to person, place and time 11/10/2013 None Full Exam - General 1994 Psychiatric mood and affect Overall: normal mood and affect 11/10/2013 None Full Exam - General 1994 Psychiatric mood and affect Mood: happy 11/10/2013 None Full Exam - General 1994 Abdomen abdominal exam Overall: no tenderness 11/10/2013 None Full Exam - General 1994 Abdomen abdominal exam Overall: normal bowel sounds 11/10/2013 None Full Exam - General 1994 Constitutional general appearance Overall: well developed 05/10/2013 None Full Exam - General 1994 Constitutional general appearance Overall: in no acute distress 05/10/2013 None Full Exam - General 1994 Constitutional general appearance Overall: well nourished 05/10/2013 None Full Exam - General 1994 Eyes pupils and irises Overall: pupils equal, round, reactive to light and accomodation 05/10/2013 None Full Exam - General 1994 Ears/Nose/Throat otoscopic exam Overall: external auditory canals clear 05/10/2013 None Full Exam - General 1994 Ears/Nose/Throat otoscopic exam Overall: tympanic membranes clear 05/10/2013 None Full Exam - General 1994 Ears/Nose/Throat oral cavity/pharynx/larynx Overall: oral mucosa clear 05/10/2013 None Full Exam - General 1994 Ears/Nose/Throat oral cavity/pharynx/larynx Overall: oropharyngeal mucosa clear 05/10/2013 None Full Exam - General 1994 Ears/Nose/Throat oral cavity/pharynx/larynx Overall: no masses 05/10/2013 None Full Exam - General 1994 Respiratory auscultation Overall: breath sounds clear bilaterally 05/10/2013 None Full Exam - General 1994 Respiratory respiratory effort/rhythm Overall: no retractions 05/10/2013 None Full Exam - General 1994 Respiratory respiratory effort/rhythm Overall: normal rate 05/10/2013 None Full Exam - General 1994 Cardiovascular extremities Overall: no clubbing 05/10/2013 None Full Exam - General 1994 Cardiovascular auscultation of heart Overall: regular rate 05/10/2013 None Full Exam - General 1994 Cardiovascular auscultation of heart Overall: normal heart sounds 05/10/2013 None Full Exam - General 1994 Musculoskeletal lower extremity Inspection - thigh: normal appearance 05/10/2013 None Full Exam - General 1995 Musculoskeletal lower extremity Palpation - thigh: tenderness 05/10/2013 mildly tender over greater trochanteric region and with internal rotation of hip on left Full Exam - General 1994 Musculoskeletal head and neck Overall: head atraumatic 05/10/2013 None Full Exam - General 1994 Musculoskeletal head and neck Overall: cervical spine benign 05/10/2013 None Full Exam - General 1994 Psychiatric orientation/consciousness Overall: oriented to person, place and time 05/10/2013 None Full Exam - General 1994 Psychiatric mood and affect Overall: normal mood and affect 05/10/2013 None Full Exam - General 1994 Psychiatric mood and affect Mood: happy 05/10/2013 None Full Exam - General 1994 Constitutional general appearance Overall: well developed 02/23/2013 None Full Exam - General 1994 Constitutional general appearance Overall: in no acute distress 02/23/2013 None Full Exam - General 1994 Constitutional general appearance Overall: well nourished 02/23/2013 None Full Exam - General 1994 Eyes pupils and irises Overall: pupils equal, round, reactive to light and accomodation 02/23/2013 None Full Exam - General 1994 Ears/Nose/Throat otoscopic exam Overall: external auditory canals clear 02/23/2013 None Full Exam - General 1995 Ears/Nose/Throat otoscopic exam Overall: tympanic membranes clear 02/23/2013 None Full Exam - General 1994 Ears/Nose/Throat oral cavity/pharynx/larynx Overall: oral mucosa clear 02/23/2013 None Full Exam - General 1995 Ears/Nose/Throat oral cavity/pharynx/larynx Overall: oropharyngeal mucosa clear 02/23/2013 None Full Exam - General 1994 Ears/Nose/Throat oral cavity/pharynx/larynx Overall: no masses 02/23/2013 None Full Exam - General 1994 Respiratory auscultation Overall: breath sounds clear bilaterally 02/23/2013 None Full Exam - General 1994 Respiratory respiratory effort/rhythm Overall: no retractions 02/23/2013 None Full Exam - General 1994 Respiratory respiratory effort/rhythm Overall: normal rate 02/23/2013 None Full Exam - General 1994 Cardiovascular extremities Overall: no clubbing 02/23/2013 None Full Exam - General 1994 Cardiovascular auscultation of heart Overall: regular rate 02/23/2013 None Full Exam - General 1994 Cardiovascular auscultation of heart Overall: normal heart sounds 02/23/2013 None Full Exam - General 1995 Musculoskeletal lower extremity Inspection - thigh: normal appearance 02/23/2013 None Full Exam - General 1995 Musculoskeletal lower extremity Palpation - thigh: tenderness 02/23/2013 mildly tender over greater trochanteric region and with internal rotation of hip on left Full Exam - General 1994 Musculoskeletal head and neck Overall: head atraumatic 02/23/2013 None Full Exam - General 1994 Musculoskeletal head and neck Overall: cervical spine benign 02/23/2013 None Full Exam - General 1994 Psychiatric orientation/consciousness Overall: oriented to person, place and time 02/23/2013 None Full Exam - General 1994 Psychiatric mood and affect Overall: normal mood and affect 02/23/2013 None Full Exam - General 1994 Psychiatric mood and affect Mood: happy 02/23/2013 None Full Exam - General 1994 Abdomen abdominal exam Overall: no tenderness 02/23/2013 None Full Exam - General 1994 Abdomen abdominal exam Overall: normal bowel sounds 02/23/2013 None Full Exam - General 1994 Constitutional general appearance Overall: well developed 01/12/2013 None Full Exam - General 1994 Constitutional general appearance Overall: in no acute distress 01/12/2013 None Full Exam - General 1994 Constitutional general appearance Overall: well nourished 01/12/2013 None Full Exam - General 1994 Eyes pupils and irises Overall: pupils equal, round, reactive to light and accomodation 01/12/2013 None Full Exam - General 1994 Musculoskeletal head and neck Overall: head atraumatic 01/12/2013 None Full Exam - General 1994 Musculoskeletal head and neck Overall: cervical spine benign 01/12/2013 None Full Exam - General 1994 Psychiatric orientation/consciousness Overall: oriented to person, place and time 01/12/2013 None Full Exam - General 1994 Psychiatric mood and affect Overall: normal mood and affect 01/12/2013 None Full Exam - General 1994 Psychiatric mood and affect Mood: happy 01/12/2013 None Full Exam - General 1994 Ears/Nose/Throat otoscopic exam Overall: external auditory canals clear 01/12/2013 None Full Exam - General 1994 Ears/Nose/Throat otoscopic exam Overall: tympanic membranes clear 01/12/2013 None Full Exam - General 1995 Ears/Nose/Throat oral cavity/pharynx/larynx Overall: oral mucosa clear 01/12/2013 None Full Exam - General 1995 Ears/Nose/Throat oral cavity/pharynx/larynx Overall: oropharyngeal mucosa clear 01/12/2013 None Full Exam - General 1995 Ears/Nose/Throat oral cavity/pharynx/larynx Overall: no masses 01/12/2013 None Full Exam - General 1994 Respiratory auscultation Overall: breath sounds clear bilaterally 01/12/2013 None Full Exam - General 1994 Respiratory respiratory effort/rhythm Overall: no retractions 01/12/2013 None Full Exam - General 1994 Respiratory respiratory effort/rhythm Overall: normal rate 01/12/2013 None Full Exam - General 1994 Cardiovascular extremities Overall: no clubbing 01/12/2013 None Full Exam - General 1994 Cardiovascular auscultation of heart Overall: regular rate 01/12/2013 None Full Exam - General 1994 Cardiovascular auscultation of heart Overall: normal heart sounds 01/12/2013 None Full Exam - General 1994 Musculoskeletal lower extremity Inspection - thigh: normal appearance 01/12/2013 None Full Exam - General 1994 Musculoskeletal lower extremity Palpation - thigh: tenderness 01/12/2013 mildly tender over greater trochanteric region and with internal rotation of hip on left Full Exam - General 1994 Constitutional general appearance Overall: well developed 11/30/2012 None Full Exam - General 1994 Constitutional general appearance Overall: in no acute distress 11/30/2012 None Full Exam - General 1994 Constitutional general appearance Overall: well nourished 11/30/2012 None Full Exam - General 1994 Eyes pupils and irises Overall: pupils equal, round, reactive to light and accomodation 11/30/2012 None Full Exam - General 1994 Ears/Nose/Throat otoscopic exam Overall: external auditory canals clear 11/30/2012 None Full Exam - General 1994 Ears/Nose/Throat otoscopic exam Overall: tympanic membranes clear 11/30/2012 None Full Exam - General 1994 Ears/Nose/Throat oral cavity/pharynx/larynx Overall: oral mucosa clear 11/30/2012 None Full Exam - General 1995 Ears/Nose/Throat oral cavity/pharynx/larynx Overall: oropharyngeal mucosa clear 11/30/2012 None Full Exam - General 1994 Ears/Nose/Throat oral cavity/pharynx/larynx Overall: no masses 11/30/2012 None Full Exam - General 1994 Respiratory auscultation Overall: breath sounds clear bilaterally 11/30/2012 None Full Exam - General 1995 Respiratory respiratory effort/rhythm Overall: no retractions 11/30/2012 None Full Exam - General 1995 Respiratory respiratory effort/rhythm Overall: normal rate 11/30/2012 None Full Exam - General 1995 Cardiovascular extremities Overall: no clubbing 11/30/2012 None Full Exam - General 1995 Cardiovascular auscultation of heart Overall: regular rate 11/30/2012 None Full Exam - General 1995 Cardiovascular auscultation of heart Overall: normal heart sounds 11/30/2012 None Full Exam - General 1995 Musculoskeletal lower extremity Inspection - thigh: normal appearance 11/30/2012 None Full Exam - General 1995 Musculoskeletal lower extremity Palpation - thigh: tenderness 11/30/2012 mildly tender over greater trochanteric region and with internal rotation of hip on left Full Exam - General 1995 Musculoskeletal head and neck Overall: head atraumatic 11/30/2012 None Full Exam - General 1995 Musculoskeletal head and neck Overall: cervical spine benign 11/30/2012 None Full Exam - General 1994 Psychiatric orientation/consciousness Overall: oriented to person, place and time 11/30/2012 None Full Exam - General 1994 Psychiatric mood and affect Overall: normal mood and affect 11/30/2012 None Full Exam - General 1995 Psychiatric mood and affect Mood: happy 11/30/2012 None Full Exam - General 1994 Constitutional general appearance Overall: well nourished 11/09/2012 None Full Exam - General 1994 Constitutional general appearance Overall: well developed 11/09/2012 None Full Exam - General 1995 Constitutional general appearance Overall: in no acute distress 11/09/2012 None Full Exam - General 1994 Eyes pupils and irises Overall: pupils equal, round, reactive to light and accomodation 11/09/2012 None Full Exam - General 1995 Ears/Nose/Throat otoscopic exam Overall: tympanic membranes clear 11/09/2012 None Full Exam - General 1995 Ears/Nose/Throat otoscopic exam Overall: external auditory canals clear 11/09/2012 None Full Exam - General 1995 Ears/Nose/Throat oral cavity/pharynx/larynx Overall: oropharyngeal mucosa clear 11/09/2012 None Full Exam - General 1995 Ears/Nose/Throat oral cavity/pharynx/larynx Overall: no masses 11/09/2012 None Full Exam - General 1995 Ears/Nose/Throat oral cavity/pharynx/larynx Overall: oral mucosa clear 11/09/2012 None Full Exam - General 1994 Neck thyroid Overall: nontender 2012 None Full Exam - General 1994 Neck thyroid Overall: normal size None Full Exam - General 1994 Neck thyroid Overall: no mass lesions 11/09/2012 None Full Exam - General 1994 Neck thyroid Overall: normal consistency 11/09/2012 None Full Exam - General 1994 Respiratory auscultation Overall: breath sounds clear bilaterally 11/09/2012 None Full Exam - General 1994 Respiratory respiratory effort/rhythm Overall: normal rate 11/09/2012 None Full Exam - General 1994 Respiratory respiratory effort/rhythm Overall: no retractions 11/09/2012 None Full Exam - General 1994 Cardiovascular auscultation of heart Overall: regular rate 11/09/2012 None Full Exam - General 1994 Cardiovascular auscultation of heart Overall: normal heart sounds 11/09/2012 None Full Exam - General 1994 Cardiovascular extremities Overall: no clubbing 11/09/2012 None Full Exam - General 1994 Abdomen abdominal exam Overall: no tenderness 11/09/2012 None Full Exam - General 1994 Abdomen abdominal exam Overall: normal bowel sounds 11/09/2012 None Full Exam - General 1994 Lymphatic neck nodes Overall: anterior cervical chain benign 11/09/2012 None Full Exam - General 1994 Lymphatic neck nodes Overall: posterior cervical chain benign 11/09/2012 None Full Exam - General 1994 Musculoskeletal head and neck Overall: cervical spine benign 11/09/2012 None Full Exam - General 1994 Musculoskeletal head and neck Overall: head atraumatic 11/09/2012 None Full Exam - General 1994 Musculoskeletal spine, ribs and pelvis Overall: good posture 11/09/2012 None Full Exam - General 1994 Musculoskeletal spine, ribs and pelvis Overall: sacroiliac joint benign 11/09/2012 None Full Exam - General 1994 Musculoskeletal spine, ribs and pelvis Overall: spine benign 11/09/2012 None Full Exam - General 1994 Integument inspection of skin Overall: no rash, lesions 11/09/2012 None Full Exam - General 1994 Neurologic deep tendon reflexes Overall: deep tendon reflexes intact 11/09/2012 None Full Exam - General 1994 Neurologic cranial nerves Overall: crainial nerves 2 - 12 grossly intact 11/09/2012 None Full Exam - General 1994 Psychiatric mood and affect Mood: happy 11/09/2012 None Full Exam - General 1994 Psychiatric mood and affect Overall: normal mood and affect 11/09/2012 None Full Exam - General 1994 Psychiatric orientation/consciousness Overall: oriented to person, place and time 11/09/2012 None Full Exam - General 1994 Musculoskeletal lower extremity Inspection - thigh: normal appearance 11/09/2012 None Full Exam - General 1994 Musculoskeletal lower extremity Palpation - thigh: tenderness 11/09/2012 mildly tender over greater trochanteric region and with internal rotation of hip on left Procedures Procedure Codes Date THER/PROPH/DIAG INJ SC/IM CPT-4: 70260 10/06/2017 TRIAMCINOLONE ACET INJ NOS CPT-4: J3301 10/06/2017 THER/PROPH/DIAG INJ SC/IM CPT-4: 61202 10/31/2015 TRIAMCINOLONE ACET INJ NOS CPT-4: J3301 10/31/2015 ROUTINE VENIPUNCTURE CPT-4: 18483 11/10/2013 PRESCRIP TRANSMIT VIA ERX SY CPT-4: G8553 02/23/2013 PRESCRIP TRANSMIT VIA ERX SY CPT-4: G8553 11/30/2012 PRESCRIP TRANSMIT VIA ERX SY CPT-4: G8553 11/09/2012 Vital Signs Date Vital 10/06/2017 Blood Pressure 1: 136/74 Code : 8480-6 BMI: 38.0 Code : 69163-7 Heart Rate 1 : 75 bpm Height: 5' SpO2: 95% Temperature: 36.8 (C) / 98.2 (F) Weight: 194 lbs 8 oz 06/23/2017 Blood Pressure 1: 152/82 Code : 8480-6 BMI: 28.3 Code : 55493-1 Heart Rate 1 : 58 bpm Height: 5'10" SpO2: 96% Weight: 197 lbs 04/14/2017 Blood Pressure 1: 146/84 Code : 8480-6 BMI: 27.5 Code : 94456-0 Heart Rate 1 : 69 bpm Height: 5'10" SpO2: 95% Weight: 192 lbs 02/24/2017 Blood Pressure 1: 146/60 Code : 8480-6 BMI: 27.4 Code : 01046-3 Heart Rate 1 : 61 bpm Height: 5'10" SpO2: 97% Weight: 191 lbs 05/07/2016 Blood Pressure 1: 146/66 Code : 8480-6 BMI: 26.3 Code : 84662-9 Heart Rate 1 : 69 bpm Height: 5'10" SpO2: 97% Weight: 183 lbs 03/02/2016 Blood Pressure 1: 170/100 Code: 8480-6 Blood Pressure 1: 190/108 Code: 8480-6 BMI: 26.5 Code: 49209-4 Heart Rate 1: 76 bpm Height: 5'10" SpO2: 98% Weight: 185 lbs 10/31/2015 Blood Pressure 1: 126/86 Code : 8480-6 Blood Pressure 1: 142/90 Code: 8480-6 BMI: 26.8 Code: 92277-0 Heart Rate 1: 99 bpm Height: 5'10" SpO2: 95% Temperature: 37.0 (C) / 98.6 (F) Weight: 187 lbs 01/25/2014 Blood Pressure 1: 180/90 Code : 8480-6 BMI: 26.3 Code : 40679-3 Heart Rate 1 : 76 bpm Height: 5'10" Temperature: 37.4 (C) / 99.3 (F) Weight: 183 lbs 11/29/2013 Blood Pressure 1: 164/82 Code : 8480-6 Heart Rate 1: 80 bpm Temperature: 37.1 (C) / 98.7 (F) Weight: 187 lbs 11/10/2013 Blood Pressure 1: 156/94 Code : 8480-6 Heart Rate 1: 72 bpm Weight: 186 lbs 05/10/2013 Blood Pressure 1: 134/78 Code : 8480-6 BMI: 25.7 Code : 71622-2 Heart Rate 1 : 84 bpm Height: 5'10" Weight: 179 lbs 02/23/2013 Blood Pressure 1: 138/90 Code : 8480-6 BMI: 27.0 Code : 10500-1 Heart Rate 1 : 88 bpm Height: 5'10" Temperature: 37.0 (C) / 98.6 (F) Weight: 188 lbs 01/12/2013 Blood Pressure 1: 136/78 Code : 8480-6 BMI: 26.7 Code : 23257-6 Heart Rate 1 : 96 bpm Height: 5'10" Weight: 186 lbs 11/30/2012 Blood Pressure 1: 170/90 Code : 8480-6 BMI: 26.8 Code : 11540-7 Heart Rate 1 : 80 bpm Height: 5'10" Weight: 187 lbs 11/09/2012 Blood Pressure 1: 178/84 Code : 8480-6 BMI: 26.5 Code : 17493-5 Heart Rate 1 : 86 bpm Height: 5'10" Respiratory Rate: 16 bpm Weight: 185 lbs Functional Status No Functional Status data History of Present Illness Symptom Name Status Result Effective Date Notes cough Quality acute None cough Location in the throat 10/06/2017 None cough Quality dry 06/2018 None cough Quality intermittent 10/06/2017 None cough Quality improving 10/06/2017 None cough Quality stable 10/06/2017 None cough Onset and Resolution sudden in onset 10/06/2017 None cough Onset of Symptom 1 weeks ago 10/06/2017 None cough Pertinent Findings Denies chest discomfort 10/06/2017 None cough Pertinent Findings facial pain 10/06/2017 None cough Pertinent Findings Denies fever 10/06/2017 None cough Pertinent Findings hoarseness 10/06/2017 None cough Pertinent Findings Denies muscle aches 10/06/2017 None cough Pertinent Findings Denies nasal congestion 10/06/2017 None cough Alleviating Factors OTC medications 10/06/2017 None cough Triggers no known associated factors 10/06/2017 None gas and bloating Onset and Resolution sudden in onset 06/23/2017 None gas and bloating Onset of Symptom 3 weeks ago 06/23/2017 None gas and bloating Quality acute 06/23/2017 None gas and bloating Location diffusely 06/23/2017 None gas and bloating Pertinent Findings abdominal distension 06/23/2017 None gas and bloating Pertinent Findings Denies emesis 06/23/2017 None gas and bloating Pertinent Findings flatulence 06/23/2017 None gas and bloating Pertinent Findings Denies heartburn 06/23/2017 None gas and bloating Pertinent Findings Denies weight loss 06/23/2017 None forearm pain Exacerbating Factors activity 06/23/2017 right elbow forearm pain Onset and Resolution sudden in onset 06/23/2017 None forearm pain Onset of Symptom 7 months ago 06/23/2017 None forearm pain Quality chronic 06/23/2017 None forearm pain Quality constant 06/23/2017 None forearm pain Quality dull pain 06/23/2017 None forearm pain Pertinent Findings decreased range of motion 06/23/2017 None forearm pain Pertinent Findings pain with movement 06/23/2017 None back pain Location thoracic spine 04/14/2017 None back pain Quality acute 04/14/2017 None back pain Quality intermittent 04/14/2017 None back pain Onset and Resolution acute 04/14/2017 None back pain Limitation on Activities moderately limits activities 04/14/2017 None back pain Pertinent Findings Denies fever 04/14/2017 None forearm pain Exacerbating Factors activity 02/24/2017 None forearm pain Onset of Symptom 7 months ago 02/24/2017 None forearm pain Quality constant 02/24/2017 None forearm pain Quality chronic 02/24/2017 None forearm pain Quality dull pain 02/24/2017 None forearm pain Mechanism of injury unknown 02/24/2017 None forearm pain Onset and Resolution sudden in onset 02/24/2017 None forearm pain Pertinent Findings decreased range of motion 02/24/2017 None forearm pain Pertinent Findings pain with movement 02/24/2017 None bone pain Location in the ribs on in the left 02/24/2017 None bone pain Quality aching 02/24/2017 None bone pain Quality intermittent 02/24/2017 None bone pain Quality sharp 02/24/2017 None bone pain Quality stabbing 02/24/2017 None bone pain Onset and Resolution sudden in onset 02/24/2017 None bone pain Onset of Symptom 2 months ago 02/24/2017 None bone pain Frequency of Episodes daily 02/24/2017 None foot pain Location on the left 02/24/2017 None foot pain Location on the right 02/24/2017 None foot pain Quality numbness 02/24/2017 None foot pain Onset and Resolution sudden in onset 02/24/2017 None foot pain Frequency of Episodes daily 02/24/2017 None joint complaint Location diffusely 02/24/2017 None joint complaint Quality aching 02/24/2017 None joint complaint Quality constant 02/24/2017 None blood pressure followup Quality chronic 05/07/2016 None blood pressure followup Onset and Resolution ongoing 05/07/2016 None blood pressure followup Blood Pressure Values pt checking blood pressure at home, did not bring in to clinic 05/07/2016 120-130s/70-80s blood pressure followup Severity mild 05/07/2016 None blood pressure followup Frequency of Episodes unchanged 05/07/2016 None blood pressure followup Significant Family History heart disease 05/07/2016 None blood pressure followup Pertinent Findings Denies decreased energy 05/07/2016 None blood pressure followup Pertinent Findings Denies dizziness 05/07/2016 None blood pressure followup Pertinent Findings Denies dyspnea 05/07/2016 None blood pressure followup Pertinent Findings Denies edema 05/07/2016 None blood pressure followup Onset of Symptom during adulthood 05/07/2016 None blood pressure followup Triggers no known associated factors 05/07/2016 None blood pressure followup Alleviating Factors medication 05/07/2016 None blood pressure followup Quality chronic 03/02/2016 None blood pressure followup Onset and Resolution ongoing 03/02/2016 None blood pressure followup Blood Pressure Values pt checking blood pressure at home, did not bring in to clinic 03/02/2016 120-130s/70-80s blood pressure followup Severity mild 03/02/2016 None blood pressure followup Frequency of Episodes unchanged 03/02/2016 None blood pressure followup Pertinent Findings Denies decreased energy 03/02/2016 None blood pressure followup Pertinent Findings Denies dizziness 03/02/2016 None blood pressure followup Pertinent Findings Denies dyspnea 03/02/2016 None blood pressure followup Pertinent Findings Denies edema 03/02/2016 None skin lesion Quality red 03/02/2016 None skin lesion Onset and Resolution ongoing 03/02/2016 None blood pressure followup Onset of Symptom 3-4 weeks ago 03/02/2016 noticed increase in blood pressure blood pressure followup Significant Family History heart disease 03/02/2016 None fever Quality intermittent 10/31/2015 None fever Onset and Resolution gradual in onset 10/31/2015 None fever Onset of Symptom 4 days ago 10/31/2015 None fever Frequency of Episodes daily 10/31/2015 None fever Pertinent Findings cough 10/31/2015 None fever Pertinent Findings Denies dyspnea 10/31/2015 None sinus congestion Onset of Symptom 4 days ago 10/31/2015 None sinus congestion Frequency of Episodes daily 10/31/2015 None sinus congestion Pertinent Findings cough 10/31/2015 None sinus congestion Pertinent Findings decreased energy level 10/31/2015 None sinus congestion Pertinent Findings Denies fever 10/31/2015 None joint complaint Location diffusely 10/31/2015 None joint complaint Quality intermittent 10/31/2015 None joint complaint Onset and Resolution ongoing 10/31/2015 None skin lesion Onset of Symptom 10 days ago 01/25/2014 None skin lesion Location Left Knee 01/25/2014 None skin lesion Pertinent Findings Denies fever 01/25/2014 None skin lesion Onset and Resolution ongoing 01/25/2014 None skin lesion Quality enlarging 01/25/2014 None skin lesion Quality erythematous 01/25/2014 None cough Location in the lung 11/29/2013 None cough Quality worsening 11/29/2013 None cough Onset of Symptom 1 weeks ago 11/29/2013 None cough Pertinent Findings chest discomfort 11/29/2013 None cough Pertinent Findings chills 11/29/2013 None cough Pertinent Findings Denies dyspnea 11/29/2013 None cough Pertinent Findings muscle aches 11/29/2013 None cough Pertinent Findings nasal congestion 11/29/2013 None sinus congestion Onset and Resolution ongoing 11/29/2013 None sinus congestion Quality acute 11/29/2013 None sinus congestion Onset of Symptom 10+ days ago 11/29/2013 None sinus congestion Triggers no known associated factors 11/29/2013 None sinus congestion Pertinent Findings cough 11/29/2013 None sinus congestion Pertinent Findings decreased energy level 11/29/2013 None sinus congestion Pertinent Findings fever 11/29/2013 OFF AND ON sinusitis Location in the bilateral frontal sinuses 11/29/2013 None sinusitis Location in the bilateral maxillary sinuses 11/29/2013 None sinusitis Onset and Resolution gradual in onset 11/29/2013 None sinusitis Onset and Resolution ongoing 11/29/2013 None sinusitis Pertinent Findings facial pain 11/29/2013 None sinusitis Pertinent Findings fatigue 11/29/2013 None sinusitis Pertinent Findings headache 11/29/2013 None sinusitis Pertinent Findings sinus pain 11/29/2013 None sinusitis Pertinent Findings sinus pressure 11/29/2013 None sinusitis Quality acute 11/29/2013 None sinusitis Quality pain 11/29/2013 None sinusitis Quality pressure 11/29/2013 None sinusitis Severity moderate 11/29/2013 None blood pressure followup Quality chronic 11/10/2013 None blood pressure followup Pertinent Findings Denies decreased energy 11/10/2013 None blood pressure followup Pertinent Findings Denies dizziness 11/10/2013 None blood pressure followup Pertinent Findings Denies dyspnea 11/10/2013 None blood pressure followup Pertinent Findings Denies edema 11/10/2013 None blood pressure followup Blood Pressure Values pt checking blood pressure at home, did not bring in to clinic 11/10/2013 120-130s/70-80s blood pressure followup Onset and Resolution ongoing 11/10/2013 None blood pressure followup Onset of Symptom during adulthood 11/10/2013 None blood pressure followup Severity mild 11/10/2013 None blood pressure followup Frequency of Episodes unchanged 11/10/2013 None hypertension Quality chronic 05/10/2013 None hypertension Onset and Resolution ongoing 05/10/2013 None hypertension Blood Pressure Values patient checking blood pressure at home - did not bring in readings 05/10/2013 None pain Location-Trunk in the left groin area 05/10/2013 None pain Quality recurrent 05/10/2013 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 hypertension Severity mild 05/10/2013 None hypertension Triggers no known associated factors 05/10/2013 None hypertension Alleviating Factors medication 05/10/2013 None hypertension Pertinent Findings Denies anxiety 05/10/2013 None hypertension Pertinent Findings Denies confusion 05/10/2013 None sore throat Quality scratchy 02/23/2013 None sore throat Onset and Resolution ongoing 02/23/2013 None sore throat Onset of Symptom 3 weeks ago 02/23/2013 None sore throat Location on the left 02/23/2013 None sore throat Quality constant 02/23/2013 None sore throat Pertinent Findings Denies cough 02/23/2013 None sore throat Pertinent Findings Denies ill contacts 02/23/2013 None sore throat Pertinent Findings hoarseness 02/23/2013 None sore throat Pertinent Findings Denies unable to swallow 02/23/2013 None sore throat Pertinent Findings Denies unable to lie down 02/23/2013 None sore throat Pertinent Findings Denies restlessness 02/23/2013 None sore throat Pertinent Findings Denies poor feeding 02/23/2013 None sore throat Pertinent Findings Denies nasal congestion 02/23/2013 None hypertension Onset and Resolution ongoing 01/12/2013 None hypertension Alleviating Factors medication 01/12/2013 None hypertension Pertinent Findings Denies decreased energy 01/12/2013 None hypertension Pertinent Findings Denies dizziness 01/12/2013 None hypertension Pertinent Findings Denies orthostatic hypotension 01/12/2013 None hypertension Pertinent Findings Denies palpitations 01/12/2013 None hypertension Blood Pressure Values not checking blood pressure at home 01/12/2013 None hypertension Severity mild 01/12/2013 None hypertension Quality chronic 01/12/2013 None hypertension Onset of Symptom during adulthood 01/12/2013 None hypertension Onset and Resolution ongoing 11/30/2012 None hypertension Alleviating Factors medication 11/30/2012 None hypertension Blood Pressure Values patient checking blood pressure at home - did not bring in readings 11/30/2012 None hypertension Pertinent Findings Denies orthostatic hypotension 11/30/2012 None hypertension Pertinent Findings Denies palpitations 11/30/2012 None hypertension Pertinent Findings Denies decreased energy 11/30/2012 None hypertension Pertinent Findings Denies dizziness 11/30/2012 None hypertension Quality chronic 11/09/2012 None hypertension Quality worsening 11/09/2012 None hypertension Onset of Symptom during adulthood 11/09/2012 None hypertension Blood Pressure Values not checking blood pressure at home 11/09/2012 None hypertension Severity mild 11/09/2012 None hypertension Significant Family History hypertension 11/09/2012 None hypertension Significant Family History heart disease 11/09/2012 None hypertension Significant Medical Conditions renal artery stenosis 11/09/2012 None hypertension Triggers no known associated factors 11/09/2012 None hypertension Alleviating Factors medication 11/09/2012 None hypertension Exacerbating Factors stress 11/09/2012 None hypertension Exacerbating Factors change in dietary habits 11/09/2012 None hypertension Pertinent Findings Denies anxiety 11/09/2012 None hypertension Pertinent Findings Denies decreased energy 11/09/2012 None hypertension Pertinent Findings Denies dyspnea 11/09/2012 None hypertension Pertinent Findings Denies edema 11/09/2012 None Advance Directives No Advance Directive data Encounters Encounter Performer Location Codes Date 78800 EST. 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 PATIENT, LEVEL IV Diagnosis: Gastro-esophageal reflux disease without esophagitis[ICD10: K21.9] Diagnosis: Pain in right elbow[ICD10: M25.521] Diagnosis: Other half-way (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[ICD10: Z79.899] Gayle Fajardo MD, [facility] CPT-4: 67046 06/23/2017 73301 EST. PATIENT, LEVEL IV Diagnosis: Other conditions associated with Lyme disease[ICD10: A69.29] Diagnosis: Other dorsalgia[ICD10: M54.89] Gayle Fajardo MD, [facility] CPT-4 : 39824 04/14/2017 24006 EST. PATIENT, LEVEL IV Diagnosis: Pain in left elbow[ICD10: M25.522] Diagnosis: Pain in right elbow[ICD10: M25.521] Diagnosis: Pain in joints of left hand[ICD10: M25.542] Diagnosis: Pain in joints of right hand[ICD10: M25.541] Diagnosis: Other fatigue[ICD10: R53.83] Diagnosis: Other half-way (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[ICD10: Z79.899] Gayle Fajardo MD, [facility] CPT-4: 22568 02/24/2017 ([id number]) 31536 EST. PATIENT, LEVEL III Diagnosis: Essential (primary) hypertension[ICD10: I10] Jennifer Fajardo MD, [facility] CPT-4: 77780 05/07/2016 ([id number]) 85500 EST. PATIENT, LEVEL IV Diagnosis: Essential (primary) hypertension[ICD10: I10] Diagnosis: Impaired fasting glucose[ICD10: R73.01] Diagnosis: Other half-way (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[ICD10: Z79.899] Jennifer Fajardo MD, [facility] CPT-4: 52231 03/02/2016 ([id number]) 87347 EST. 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 PATIENT, LEVEL III Diagnosis: CELLULITIS[ICD9: 682.9] Mahnaz Fajardo MD, [facility] CPT-4: 19703 01/25/2014 ([id number]) 55158 EST. PATIENT, LEVEL III Diagnosis: Acute maxillary sinusitis[ICD9: 461.0] Diagnosis: Cough[ICD9: 786.2] Mahnaz Fajardo MD, [facility] CPT-4: 43453 11/29/2013 ([id number]) 03932 EST. PATIENT, LEVEL III Diagnosis: ESSENTIAL HYPERTENSION[SNOMED: 83961997] Diagnosis: Encounter for long-term (current) use of other high-risk medications[ ICD9: V58.69] Jennifer Fajardo MD, [facility] CPT-4: 90893 11/10/2013 ([id number]) 08420 EST. PATIENT, LEVEL IV Diagnosis: ESSENTIAL HYPERTENSION[SNOMED: 05745736] Diagnosis: HYPERLIPIDEMIA[ICD9: 272.4] Mahnaz Fajardo MD, [facility] CPT- 4: 86664 05/10/[id number]) 88077 EST. PATIENT, LEVEL III Diagnosis: Esophageal reflux[ICD9: 530.81] Diagnosis: Sore throat[ICD9: 462] Diagnosis: Allergic rhinitis[ICD9: 477.9] GIAN Rose MD CPT- 4: 34634 02/23/2013 ([id number] 02619 EST. PATIENT, LEVEL III Diagnosis: ESSENTIAL HYPERTENSION[SNOMED: 24571774] Diagnosis: HYPERLIPIDEMIA[ICD9: 272.4] GIAN Rose MD CPT- 4: 01678 01/12/2013 ([id number]) 34756 EST. 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 Call if symptoms do not show improvement. Allergies - chronic - recommended pt to use allergy medication as prescribed. Pt has been counseled as to the appropriate use of the medication. Pt to call if allergy symptoms are not controlled with the medication. If using nasal spray , instructions as follows: Nasal spray- use twice daily, one spray per nostril twice daily, after 30 minutes, rinse out nose with saline spray.. Use opposite hand per nostril to spray in the nasal steroid allergy spray. 10/06/2017 Appointment: Gayle Morris WPtel: [address] [place], [place] [phone] (30 min) [facility] 10/06/2017 Patient Education: Patient Medication Summary Completed 10/06/2017 Care Plan: Pt Approved 10/06/2017 Referral: Kobe Benjamin [address] [facility] Referral Initiated 07/06/2017 Visit Plan: Esophageal Reflux - the patient has been counseled against excessive intake of caffeine, spicy foods, peppermint, and cinnamon - all of which can exacerbate esophageal reflux. The patient is to take medications as prescribed and call the office if the symptoms are not improving. Elbow pain - intermittent and ongoing - will refer to PT - The pt is to use prn tylenol to manage acute pain. Pt is to use RICE - rest, ice, compression, elevation. The patient is to call the office if the pain is worsening or does not improve. 06/23/2017 Appointment: Gayle Morris WPtel: [address] [place], [place] [phone] (30 min) Complex 06/23/2017 Patient Education: Patient Medication Summary Completed 06/23/2017 Care Plan: Referral Order SNOMED-CT : 363452296 Pending 06/23/2017 Visit Plan: Back pain, lyme disease - pt refuses to start doxycycline, but does want an antibiotic - will send RX - the patient was instructed in appropriate posture, need for weight loss to alleviate abdominal obesity that is worsening the patient's back pain.. The pt is to use prn antiinflammatories to manage acute pain. The patient is to call the office if the pain is worsening or does not improve. 04/14/2017 Patient Education: Patient Medication Summary Completed 04/14/2017 Patient Education: .Cervicalgia Neck Pain Completed 04/14/2017 Appointment: Gayle Morris WPtel: [address] [place], [place] [phone] (30 min) Complex 04/13/2017 Visit Plan: Joint pain, back pain - will check labs - The pt is to use prn antiinflammatories to manage acute pain. The patient is to call the office if the pain is worsening or does not improve. 02/24/2017 Appointment: Gayle Morris WPtel: [facility] (30 min) Complex 02/24/2017 Patient Education: Patient Medication Summary Completed 02/24/2017 Patient Education: Patient Medication Summary Completed 11/20/2016 Care Plan: Pt Pending 11/20/2016 Appointment: Jennifer Perez WPtel: [phone] [phone] (30 min) Complex 11/05/2016 Visit Plan: Hypertension - well controlled - continue with current medications, continue with no added salt diet. Pt has been encouraged to exercise daily. The pt has been advised to call the office if there are any acute concerns about change in blood pressure readings at home. 05/07/2016 Appointment: [phone] ([facility] Complex 05/07/2016 Patient Education: Patient Medication Summary Completed 05/07/2016 Referral: Opal Reddy Referral Completed 03/13/2016 Visit Plan: Hypertension - uncontrolled - the patient's medications have been modified as documented in the visit note. The patient has been counseled to cut back on salt in diet for a no added salt diet, low fat diet, start an exercise program with low weight bearing exercises and higher aerobic activity for heart health. The patient is to check blood pressure readings as an outpatient and either fax, call, or email the readings to the office next week for practitioner to review. The pt is to call for acute concerns. Refer to Dr Reddy Elevated glucose-check Hgb A1C Chronic Anticoagulant use - Pt has been counseled about the anticoagulant, need for serial monitoring, and need for the pt to alert the physician as to any new bruising, or acute bleeding. Therapeutic goal for INR is between 2.0 and 3.5. 03/02/2016 Patient Education: Patient Medication Summary Completed 03/02/2016 Care Plan: Referral Order SNOMED-CT : 450546877 Pending 03/02/2016 Visit Plan: Hypertension - well controlled - continue with current medications, continue with no added salt diet. Pt has been encouraged to exercise daily. The pt has been advised to call the office if there are any acute concerns about change in blood pressure readings at home. Hyperlipidemia - pt has been counseled about appropriate diet, exercise, and need for low fat food choices. I have discussed the need for the patient to take medications as prescribed. If the patient has negative side effects from the medication, they are to CALL the office and not abruptly discontinue the medication without discussion with a practitioner in the office. We will check labs in 3-6 months for follow up on the patient's chronic medical problem and to assure normal liver response to medications. Chronic Anticoagulant use - Pt has been counseled about the anticoagulant, need for serial monitoring, and need for the pt to alert the physician as to any new bruising, or acute bleeding. Therapeutic goal for INR is between 2.0 and 3.5. Impaired fasting glucose-check Hgb A1C Sinusitis - Pt has acute infection - pain in face, maxillary region, Pt informed to use decongestant, RX given to patient, sinus rinses also recommended. Call if symptoms do not show improvement. Kenalog injection today in the office. 10/31/2015 Appointment: (30 min) Complex 10/31/2015 Patient Education: Patient Medication Summary Completed 10/31/2015 Patient Education: Hypertension Completed 10/31/2015 Visit Plan: Cellulitis - continue with oral antibiotics as previously directed, return to clinic as previously directed, call for acute change in symptoms, worsening redness, warmth, discharge. Uncontrolled Htn - recommended pt to check blood pressure at home, call in with report of pressure. 01/25/2014 Appointment: Mahnaz Fajardo WPtel: [address] [place], [place] [phone] [facility] 01/25/2014 Patient Education: Patient Medication Summary Completed 01/25/2014 Appointment: Mahnaz Fajardo WPtel: [facility] [facility] 11/29/2013 Patient Education: Patient Medication Summary Completed 11/29/2013 Visit Plan: Hypertension - uncontrolled - the patient's medications have been modified as documented in the visit note. The patient has been counseled to cut back on salt in diet for a no added salt diet, low fat diet, start an exercise program with low weight bearing exercises and higher aerobic activity for heart health. The patient is to check blood pressure readings as an outpatient and either fax, call, or email the readings to the office next week for practicioner to review. The pt is to call for acute concerns. Coumadin-check PT/INR 11/10/2013 Appointment: Jennifer [facility]el[phone] [phone] Follow up 11/10/2013 Patient Education: Patient Medication Summary Completed 11/10/2013 Patient Education: Hypertension Completed 11/10/2013 Appointment: Mahnaz [facility]ajardo [facility]Ptel[phone] [facility] Follow [facility] 11/08/2013 Visit Plan: Hypertension - well controlled - continue with current medications, continue with no added salt diet. Pt has been encouraged to exercise daily. The pt has been advised to call the office if there are any acute concerns about change in blood pressure readings at home. Hyperlipidemia - pt has been counseled about appropriate diet, exercise, and need for low fat food choices. I have discussed the need for the patient to take medications as prescribed. If the patient has negative side effects from the medication, they are to CALL the office and not abruptly discontinue the medication without discussion with a practicioner in the office. We will check labs in 3-6 months for follow up on the patient's chronic medical problem and to assure normal liver response to medications. 05/10/2013 Appointment: Mahnaz Fajardo WPtel: [facility] Follow [facility] 05/10/2013 Patient Education: Patient Medication Summary Completed 05/10/2013 Patient Education: Hypertension Completed 05/10/2013 Appointment: Mahnaz Fajardo WPtel: [facility] [facility] 02/24/2013 Visit Plan: Esophageal Reflux - the patient has been counseled against excessive intake of caffiene, spicy foods, peppermint, and cinnamon - all of which can exacerbate esophageal reflux. The patient is to take medications as prescribed and call the office if the symptoms are not improving. Allergies - chronic - recommended pt to use allergy medication as prescribed. Pt has been counseled as the the appropriate use of the medication. Pt to call if allergy symptoms are not controlled with the medication. If using nasal spray, instructions as follows: Nasal spray- use twice daily, one spray per nostril twice daily, after 30 minutes, rinse out nose with saline spray.. Use opposite hand per nostril to spray in the nasal steroid allergy spray. 02/23/2013 Patient Education: Patient Medication Summary Completed 02/23/2013 Visit Plan: Hypertension - well controlled - continue with current medications, continue with no added salt diet. Pt has been encouraged to exercise daily. The pt has been advised to call the office if there are any acute concerns about change in blood pressure readings at home. Hyperlipidemia - check lipids in one month. 01/12/2013 Appointment: Mahnaz Fajardo WPtel: [phone] [facility] Follow up 01/12/2013 Patient Education: Patient Medication Summary Completed 01/12/2013 Patient Education: Hypertension Completed 01/12/2013 Appointment: Mahnaz Fajardo WPtel: [phone] [facility] Follow up 01/11/2013 Visit Plan: Nerve pain in left leg - recommended the pt to start on Neurontin 100mg at night and then up to three times daily. Hypertension - uncontrolled - the patient's medications have been modified as documented in the visit note. The patient has been counseled to cut back on salt in diet for a no added salt diet, low fat diet, start an exercise program with low weight bearing exercises and higher aerobic activity for heart health. The patient is to check blood pressure readings as an outpatient and either fax , call, or email the readings to the office next week for practicioner to review. The pt is to call for acute concerns. increase the lisinopril to 20mg daily Hyperlipidemia - pt has been counseled about appropriate diet, exercise, and need for low fat food choices. I have discussed the need for the patient to take medications as prescribed. If the patient has negative side effects from the medication, they are to CALL the office and not abruptly discontinue the medication without discussion with a practicioner in the office. We will check labs in 3-6 months for follow up on the patient's chronic medical problem and to assure normal liver response to medications. [place] red Krill oil twice daily 11/30/2012 Appointment: Mahnaz Fajardo WPtel: [phone] [facility] Follow up 11/30/2012 Patient Education: Patient Medication Summary Completed 11/30/2012 Patient Education: Hypertension Completed 11/30/2012 Visit Plan: Hypertension - uncontrolled - the patient's medications have been modified as documented in the visit note. The patient has been counseled to cut back on salt in diet for a no added salt diet, low fat diet, start an exercise program with low weight bearing exercises and higher aerobic activity for heart health. The patient is to check blood pressure readings as an outpatient and either fax, call, or email the readings to the office next week for practicioner to review. The pt is to call for acute concerns. Renal artery stenosis - post stent placement - however, has not had re -eval since the placement of the stent- pt to see Dr. Grayson - cardiothoracic surgeon - Nov 18 At 9 AM. Hip pain - pt to use tylenol for pain - Appt with Dr. Zuniga for hip pain - suspect arthritis. 11/09/2012 Appointment: Mahnaz Fajardo WPtel: [address] [place], [place] [phone] New Patient 11/09/2012 Patient Education: Patient Medication Summary Completed 11/09/2012 Patient Education: Hypertension Completed 11/09/2012 Referral: Kobe Benjamin [address] [facility] Referral Initiated Referral: Opal Reddy Referral Appointment Requested Instructions Comment INCREASE LISINOPRIL TO 10MG 2 TABS IN THE MORNING AND 2 TABS IN THE EVENING. PATIENT IS TO CHECK BLOOD PRESSURE AND HEART RATE TWO TIMES DAILY AND BRING IN A RECORD OF THE READINGS INTO THE OFFICE IN TWO WEEKS.. Hypertension - uncontrolled - the patient's medications have been modified as documented in the visit note. The patient has been counseled to cut back on salt in diet for a no added salt diet, low fat diet, start an exercise program with low weight bearing exercises and higher aerobic activity for heart health. The patient is to check blood pressure readings as an outpatient and either fax , call, or email the readings to the office next week for practicioner to review. The pt is to call for acute concerns. Coumadin-check PT/INR . Sinusitis - Pt has acute infection - pain in face, maxillary region, Pt informed to use decongestant, RX given to patient, sinus rinses also recommended. Call if symptoms do not show improvement. Allergies - chronic - recommended pt to use allergy medication as prescribed. Pt has been counseled as to the appropriate use of the medication. Pt to call if allergy symptoms are not controlled with the medication. If using nasal spray, instructions as follows: Nasal spray- use twice daily, one spray per nostril twice daily, after 30 minutes, rinse out nose with saline spray.. Use opposite hand per nostril to spray in the nasal steroid allergy spray. . Cellulitis - continue with oral antibiotics as previously directed, return to clinic as previously directed, call for acute change in symptoms, worsening redness, warmth, discharge. Uncontrolled Htn - recommended pt to check blood pressure at home, call in with report of pressure. claritin or bladimir. Esophageal Reflux - the patient has been counseled against excessive intake of caffiene, spicy foods, peppermint, and cinnamon - all of which can exacerbate esophageal reflux. The patient is to take medications as prescribed and call the office if the symptoms are not improving. Allergies - chronic - recommended pt to use allergy medication as prescribed. Pt has been counseled as the the appropriate use of the medication. Pt to call if allergy symptoms are not controlled with the medication. If using nasal spray, instructions as follows: Nasal spray- use twice daily, one spray per nostril twice daily, after 30 minutes, rinse out nose with saline spray.. Use opposite hand per nostril to spray in the nasal steroid allergy spray. will refer to Dr. Benjamin for colonoscopy and EGD [place] [facility] . Esophageal Reflux - the patient has been counseled against excessive intake of caffeine, spicy foods, peppermint, and cinnamon - all of which can exacerbate esophageal reflux. The patient is to take medications as prescribed and call the office if the symptoms are not improving. Elbow pain - intermittent and ongoing - will refer to PT - The pt is to use prn tylenol to manage acute pain. Pt is to use RICE - rest, ice, compression, elevation. The patient is to call the office if the pain is worsening or does not improve. . Hypertension - well controlled - continue with current medications, continue with no added salt diet. Pt has been encouraged to exercise daily. The pt has been advised to call the office if there are any acute concerns about change in blood pressure readings at home. Hyperlipidemia - pt has been counseled about appropriate diet, exercise, and need for low fat food choices. I have discussed the need for the patient to take medications as prescribed. If the patient has negative side effects from the medication, they are to CALL the office and not abruptly discontinue the medication without discussion with a practitioner in the office. We will check labs in 3-6 months for follow up on the patient's chronic medical problem and to assure normal liver response to medications. Chronic Anticoagulant use - Pt has been counseled about the anticoagulant, need for serial monitoring, and need for the pt to alert the physician as to any new bruising, or acute bleeding. Therapeutic goal for INR is between 2.0 and 3.5. Impaired fasting glucose-check Hgb A1C Sinusitis - Pt has acute infection - pain in face, maxillary region, Pt informed to use decongestant, RX given to patient, sinus rinses also recommended. Call if symptoms do not show improvement. Kenalog injection today in the office. [place] red Krill oil twice daily increase the lisinopril to 20mg daily. Nerve pain in left leg - recommended the pt to start on Neurontin 100mg at night and then up to three times daily. Hypertension - uncontrolled - the patient's medications have been modified as documented in the visit note. The patient has been counseled to cut back on salt in diet for a no added salt diet, low fat diet, start an exercise program with low weight bearing exercises and higher aerobic activity for heart health. The patient is to check blood pressure readings as an outpatient and either fax , call, or email the readings to the office next week for practicioner to review. The pt is to call for acute concerns. increase the lisinopril to 20mg daily Hyperlipidemia - pt has been counseled about appropriate diet, exercise, and need for low fat food choices. I have discussed the need for the patient to take medications as prescribed. If the patient has negative side effects from the medication, they are to CALL the office and not abruptly discontinue the medication without discussion with a practicioner in the office. We will check labs in 3-6 months for follow up on the patient's chronic medical problem and to assure normal liver response to medications. [place] red Krill oil twice daily . Hypertension - well controlled - continue with current medications, continue with no added salt diet. Pt has been encouraged to exercise daily. The pt has been advised to call the office if there are any acute concerns about change in blood pressure readings at home. Hyperlipidemia - check lipids in one month. Renal artery stenosis - pt to see Dr. Grayson - cardiothoracic surgeon - Nov 18 At [address] Zuniga for hip pain - suspect arthritis.. Hypertension - uncontrolled - the patient's medications have been modified as documented in the visit note. The patient has been counseled to cut back on salt in diet for a no added salt diet, low fat diet, start an exercise program with low weight bearing exercises and higher aerobic activity for heart health. The patient is to check blood pressure readings as an outpatient and either fax , call, or email the readings to the office next week for practicioner to review. The pt is to call for acute concerns. Renal artery stenosis - post stent placement - however, has not had re-eval since the placement of the stent- pt to see Dr. Grayson - cardiothoracic surgeon - Nov 18 At 9 AM. Hip pain - pt to use tylenol for pain - Appt with Dr. Zuniga for hip pain - suspect arthritis. INCREASE LISINOPRIL TO 20MG TWICE DAILY CONTINUE COREG MONITOR BLOOD PRESSURE AND PULSE TWICE DAILY AND TAKE TO YOUR CARDIOLOGY APPOINTMENT CHECK PT/INR TODAY REFER TO DR REDDY . Hypertension - uncontrolled - the patient's medications have been modified as documented in the visit note. The patient has been counseled to cut back on salt in diet for a no added salt diet, low fat diet, start an exercise program with low weight bearing exercises and higher aerobic activity for heart health. The patient is to check blood pressure readings as an outpatient and either fax , call, or email the readings to the office next week for practitioner to review. The pt is to call for acute concerns. Refer to Dr Reddy Elevated glucose-check Hgb A1C Chronic Anticoagulant use - Pt has been counseled about the anticoagulant, need for serial monitoring, and need for the pt to alert the physician as to any new bruising, or acute bleeding. Therapeutic goal for INR is between 2.0 and 3.5. . Hypertension - well controlled - continue with current medications, continue with no added salt diet. Pt has been encouraged to exercise daily. The pt has been advised to call the office if there are any acute concerns about change in blood pressure readings at home. Hyperlipidemia - pt has been counseled about appropriate diet, exercise, and need for low fat food choices. I have discussed the need for the patient to take medications as prescribed. If the patient has negative side effects from the medication, they are to CALL the office and not abruptly discontinue the medication without discussion with a practicioner in the office. We will check labs in 3-6 months for follow up on the patient's chronic medical problem and to assure normal liver response to medications. [place] over the counter. Joint pain, back pain - will check labs - The pt is to use prn antiinflammatories to manage acute pain. The patient is to call the office if the pain is worsening or does not improve. . Hypertension - well controlled - continue with current medications, continue with no added salt diet. Pt has been encouraged to exercise daily. The pt has been advised to call the office if there are any acute concerns about change in blood pressure readings at home. I would like to check a tick panel for [place] Spotted Fever - I will give you a script for the blood draw let me know where you get it done so we can look for results. I would like to start doxycycline - I can send augmentin for you to start, but the only treatment for [place] Spotted Fever is Doxycycline. Massage from [facility] - you can use the muscle relaxer before hand to help. . Back pain, lyme disease - pt refuses to start doxycycline, but does want an antibiotic - will send RX - the patient was instructed in appropriate posture, need for weight loss to alleviate abdominal obesity that is worsening the patient's back pain.. The pt is to use prn antiinflammatories to manage acute pain. The patient is to call the office if the pain is worsening or does not improve.
--- OUTSIDE RECORDS SUMMARY | 2018-04-14 08:27 | XMS REPORT | Continuity of Care Document ---
Author Author [facility] Organization [facility] Address Unknown Phone Unavailable Allergies Active Description Code Type Severity Reaction Onset Reported/Identified Relationship to Patient Clinical Status Yes aspirin [id number] Drug Allergy Mild HIVES 12/23/2009 Medications There is no data. 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 12/25/2010 Ot 550.90 UNILAT INGUINAL HERNIA 12/25/2010 Ot 553.1 UMBILICAL HERNIA 12/25/2010 Ot V58.61 ANTICOAGULANTS,LT,CURRENT USE 12/25/2010 Ot V58.69 OTH MED,LT, CURRENT USE 06/29/2012 Ot 719.12 HEMARTHROSIS -UP/ARM 06/29/2012 Ot 719.43 JOINT PAIN- FOREARM 06/29/2012 Ot V58.61 ANTICOAGULANTS,LT,CURRENT USE 01/11/2013 Ot 455.0 INT HEMORRHOID W/O COMPL 01/11/2013 Ot V76.51 SCREEN MAL NEOP-COLON 08/17/2013 ALYCE CASTANEDA MD Ot 272.0 PURE HYPERCHOLESTEROLEM 08/17/2013 ALYCE CASTANEDA MD Ot 272.1 PURE HYPERGLYCERIDEMIA 08/17/2013 ALYCE CASTANEDA MD Ot 272.4 HYPERLIPIDEMIA NEC/NOS 08/17/2013 ALYCE CASTANEDA MD Ot 289.81 PRIMARY HYPERCOAGULABLE STATE 08/17/2013 ALYCE CASTANEDA MD Ot 401.9 HYPERTENSION NOS 08/17/2013 ALYCE CASTANEDA MD Ot 433.10 CAROTID ARTERY OCCLUSION W O CEREBRAL IN 08/17/2013 ALYCE CASTANEDA MD Ot 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 08/17/2013 ALYCE CASTANEDA MD Ot 716.90 ARTHROPATHY NOS-UNSPEC 08/17/2013 ALYCE CASTANEDA MD Ot 782.0 SKIN SENSATION DISTURB 08/17/2013 ALYCE CASTANEDA MD Ot 786.50 CHEST PAIN NOS 08/17/2013 ALYCE CASTANEDA MD Ot V12.51 HX-VENOUS THROMBOSIS EMBOLISM 08/17/2013 ALYCE CASTANEDA MD Ot V15.82 HISTORY OF TOBACCO USE 08/17/2013 ALYCE CASTANEDA MD Ot V58.61 ANTICOAGULANTS,LT,CURRENT USE 04/14/2016 Ot 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 04/14/2016 Ot 289.81 PRIMARY HYPERCOAGULABLE STATE 04/14/2016 Ot 440.1 RENAL ARTERY ATHEROSCLER 04/14/2016 Ot 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 04/14/2016 Ot 585.9 CHRONIC KIDNEY DISEASE, UNSPECIFIED 04/14/2016 Ot V58.61 ANTICOAGULANTS,LT,CURRENT USE 04/14/2016 Ot V58.69 OTH MED,LT, CURRENT USE 04/14/2016 Ot 289.81 PRIMARY HYPERCOAGULABLE STATE 04/14/2016 Ot 550.90 UNILAT INGUINAL HERNIA 04/14/2016 Ot 553.3 DIAPHRAGMATIC HERNIA 04/14/2016 Ot V72.63 PRE- PROCEDURAL LABORATORY EXAMINATION 04/14/2016 Ot V72.81 EXAM-PRE- OPERATIVE CARDIOVASCULAR 04/14/2016 Ot V74.8 SCREEN- BACTERIAL DIS NEC 04/14/2016 Ot 722.0 CERVICAL DISC DISPLACMNT 04/14/2016 Ot 782.0 SKIN SENSATION DISTURB 04/14/2016 Ot 401.9 HYPERTENSION NOS 04/14/2016 Ot 593.2 CYST OF KIDNEY, ACQUIRED 04/14/2016 Ot 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 04/14/2016 Ot 289.81 PRIMARY HYPERCOAGULABLE STATE 04/14/2016 Ot 440.1 RENAL ARTERY ATHEROSCLER 04/14/2016 Ot V12.51 HX-VENOUS THROMBOSIS EMBOLISM 04/14/2016 Ot V58.61 ANTICOAGULANTS,LT,CURRENT USE 04/14/2016 Ot V58.69 OTH MED,LT, CURRENT USE 04/14/2016 Ot 440.1 RENAL ARTERY ATHEROSCLER 04/14/2016 Ot 753.10 CYSTIC KIDNEY DISEASE, UNSPECIFIED 04/14/2016 Ot 401.9 HYPERTENSION NOS 04/14/2016 Ot 440.0 AORTIC ATHEROSCLEROSIS 04/14/2016 Ot 440.1 RENAL ARTERY ATHEROSCLER 04/14/2016 Ot 593.2 CYST OF KIDNEY, ACQUIRED 04/14/2016 Ot V72.84 EXAM PRE- OPERATIVE NOS 04/14/2016 BUSHRA JAY FACC, ALI FACP CCDS Ot R07.89 OTHER CHEST PAIN 04/14/2016 BUSHRA JAY FACC, ALI FACP CCDS Ot D68.51 ACTIVATED PROTEIN C RESISTANCE 04/14/2016 BUSHRA JAY FACC, ALI FACP CCDS Ot I10 ESSENTIAL (PRIMARY) HYPERTENSION 04/14/2016 BUSHRA JAY FACC, ALI FACP CCDS Ot 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 04/14/2016 BUSHRA JAY FACC, ALI FACP CCDS Ot R07.89 OTHER CHEST PAIN 04/15/2016 BUSHRA JAY FACC, ALI FACP CCDS Ot D68.51 ACTIVATED PROTEIN C RESISTANCE 04/15/2016 BUSHRA JAY FACC, ALI FACP CCDS Ot I10 ESSENTIAL (PRIMARY) HYPERTENSION 04/15/2016 BUSHRA JAY FACC, ALI FACP CCDS Ot 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 04/15/2016 [facility], [facility] F[facility] CCDS Ot R07.89 OTHER CHEST PAIN 05/08/2016 BUSHRA JAY [facility], ALI FACP CCDS Ot D68.51 ACTIVATED PROTEIN C RESISTANCE 05/08/2016 BUSHRA JAY [facility], ALI FACP CCDS Ot I10 ESSENTIAL (PRIMARY) HYPERTENSION 05/08/2016 BUSHRA JAY [facility], ALI FACP CCDS Ot 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 05/08/2016 BUSHRA JAY [facility], ALI FACP CCDS Ot R07.89 OTHER CHEST PAIN 05/13/2016 BUSHRA FERNÁNDEZ, ALI FACP CCDS Ot D68.51 ACTIVATED PROTEIN C RESISTANCE 05/13/2016 BUSHRA JAY FAC, ALI FACP CCDS Ot I10 ESSENTIAL (PRIMARY) HYPERTENSION 05/13/2016 BUSHRA JAY FACC, ALI FACP CCDS Ot 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 05/13/2016 BUSHRA JAY FACC, ALI FACP CCDS Ot R07.89 OTHER CHEST PAIN 03/29/2018 BUSHRA JAY FACC, ALI FACP CCDS Ot D68.51 ACTIVATED PROTEIN C RESISTANCE 03/29/2018 BUSHRA JAY FACC, ALI FACP CCDS Ot I10 ESSENTIAL (PRIMARY) HYPERTENSION 03/29/2018 BUSHRA JAY FACC, ALI FACP CCDS Ot 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 Results There is no data. Encounters ACCT No. Visit Date/Time Discharge Status Pt. Type Provider Facility Loc./Unit Complaint [id number] 04/07/2018 09:46:00 04/07/2018 23:59:59 CLS Outpatient BUSHRA JAY FACC, ALI FACP CCDS [facility] CARD MALAISE,SOB, UNCONTROLLED HTN [id number] 03/31/2018 07:14:00 03/31/2018 23:59:59 CLS Outpatient BUSHRA JAY FACC, ALI FACP CCDS [facility] CARD MALAISE,SOB, UNCONTROLLED HTN [id number] 04/14/2016 07:23:00 04/14/2016 23:59:59 CLS Outpatient BUSHRA JAY FACC, ALI FACP CCDS [facility] CARD UNCONTROLLED HTN,CHEST DISCOMFORT [id number] 08/16/2013 10:01:00 08/17/2013 17:30:00 DIS Inpatient ALYCE CASTANEDA MD [facility] [id number] 04/14/2016 07:23:00 Document Registration [id number] 04/14/2016 07:22:00 Document Registration [id number] 01/11/2013 08:30:00 Document Registration [id number] 01/04/2013 07:34:00 Document Registration [id number] 11/23/2012 08:22:00 Document Registration [id number] 11/14/2012 07:48:00 Document Registration [id number] 06/29/2012 18:19:00 Document Registration [id number] 06/28/2012 12:58:00 Document Registration [id number] 10/16/2011 07:49:00 Document Registration [id number] 06/30/2011 13:18:00 Document Registration [id number] 04/27/2011 06:59:00 Document Registration [id number] 12/25/2010 05:42:00 Document Registration [id number] 12/22/2010 07:54:00 Document Registration 0000 06/23/2017 19:07:32 06/23/2017 23:59:59 [facility] Outpatient
[2018-04-14 08:55] LABS: BASOPHILS # (AUTO) 0.1 10^3/uL (0.0-0.1); BASOPHILS % (AUTO) 1 % (0-10); EOSINOPHILS # (AUTO) 0.2 10^3/uL (0.0-0.3); EOSINOPHILS % (AUTO) 3 % (0-10); HEMATOCRIT 43 % (40-54); HEMOGLOBIN 14.8 G/DL (13.3-17.7); LYMPHOCYTES # (AUTO) 2.2 X 10^3 (1.0-4.0); LYMPHOCYTES % (AUTO) 27 % (12-44); MEAN CORPUSCULAR HEMOGLOBIN 29 PG (25-34); MEAN CORPUSCULAR HGB CONC 35 G/DL (32-36); MEAN CORPUSCULAR VOLUME 84 FL (80-99); MEAN PLATELET VOLUME 10.6 FL (7.4-10.4); MONOCYTES # (AUTO) 0.7 X 10^3 (0.0-1.0); MONOCYTES % (AUTO) 8 % (0-12); NEUTROPHILS # (AUTO) 5.1 X 10^3 (1.8-7.8); NEUTROPHILS % (AUTO) 61 % (42-75); PLATELET COUNT 229 10^3/uL (130-400); RED BLOOD COUNT 5.06 10^6/uL (4.35-5.85); RED CELL DISTRIBUTION WIDTH 13.5 % (10.0-14.5); WHITE BLOOD COUNT 8.4 10^3/uL (4.3-11.0)
[2018-04-14 09:01] LABS: INR 2.9 (0.8-1.4); PROTHROMBIN TIME PATIENT 30.2 SEC (12.2-14.7)
[2018-04-14 09:09] LABS: ALANINE AMINOTRANSFERASE 22 U/L (0-55); ALBUMIN 3.9 GM/DL (3.2-4.5); ALKALINE PHOSPHATASE 101 U/L (40-136); BILIRUBIN,TOTAL 0.6 MG/DL (0.1-1.0); BUN/CREATININE RATIO 12; CALCIUM 9.8 MG/DL (8.5-10.1); CARBON DIOXIDE 24 MMOL/L (21-32); CHLORIDE 109 MMOL/L (98-107); CREATININE SERUM 1.27 MG/DL (0.60-1.30); GFR ESTIMATED 56; GLUCOSE 148 MG/DL (70-105); MAGNESIUM 1.9 MG/DL (1.8-2.4); POTASSIUM 3.8 MMOL/L (3.6-5.0); SODIUM 140 MMOL/L (135-145); TOTAL PROTEIN 7.1 GM/DL (6.4-8.2)
[2018-04-14 09:25] LABS: BILIRUBIN,URINE NEGATIVE (NEGATIVE); CLARITY,URINE CLEAR; COLOR,URINE YELLOW; GLUCOSE, URINE (UA) NEGATIVE (NEGATIVE); KETONES,URINE NEGATIVE (NEGATIVE); LEUKOCYTE ESTERASE ,URINE 1+ (NEGATIVE); NITRITE,URINE NEGATIVE (NEGATIVE); PH,URINE 5 (5-9); PROTEIN,URINE 1+ (NEGATIVE); UROBILINOGEN,URINE NORMAL (NORMAL)
[2018-04-14 09:30] LABS: TSH (THYROID ANALYZER) 0.69 UIU/ML (0.35-4.94)
--- NOTE | 2018-04-14 09:30 | Diagnostic Imaging Report ---
INDICATION: Left arm numbness and dizziness. Noncontrast brain CT is performed and compared to 08/16/2013. FINDINGS: There are no extra-axial fluid collections. No intracranial hemorrhage. No intracranial mass or mass effect. No midline shift. Ventricles are normal in size and position. There were no focal parenchymal abnormalities in the brain. Calvarial windows were unremarkable. IMPRESSION: No acute intracranial abnormalities visualized. Dictated by: Dictated on workstation # [id number]
--- NOTE | 2018-04-14 09:40 | ED Neurological Problem ---
General Chief Complaint: Cardiac/General Problems Stated Complaint: CHEST PRESSURE,LEFT SIDE NUMB Nursing Triage Note: PATIENT HERE FOR COMPLAINTS OF LEFT ARM NUMBNESS AND TINGLING THAT STARTED THIS MORNING. IT IS NOW ALSO A BURNING SENSATION. HIS BP THIS MORNING IS HIGH (SBP 190S). HE STATES THAT HE ALSO USED A WEED EATER YESTERDAY AND WONDERED IF IT COULD BE A PINCHED NERVE. Nursing Sepsis Screen: No Definite Risk Source: patient, old records Exam Limitations: no limitations History of Present Illness Date Seen by Provider: Apr 14, 2018 Time Seen by Provider: 08:30 Initial Comments This 72-year-old gentleman presents to the emergency room with primary complaint of paresthesias described as numbness and tingling in the left upper and lower extremities. Symptoms started yesterday after he was working with a weed eater. Symptoms were better when he laid down last night and then returned this morning as he got up and around. He now has more of a burning sensation mainly in the shoulder and arm. Symptoms are minimal on the leg. This morning his left face also felt numb. He has not noted any true weakness or drooping. He does have notable hypertension and reports compliance with his medications. Patient takes warfarin due to prior history of DVT and factor V Leiden. He is ambulatory. Allergies and Home Medications Allergies Coded Allergies: aspirin (Unverified Allergy, Mild, HIVES, 12/23/09) Home Medications Carvedilol 3.125 Mg Tablet, 0 MG PO BID Prescribed by: ALYCE FAJARDO on 08/17/13 1634 Krill/Om3/Dha/Epa/Om6/Lip/Astx 1 Each Capsule, 1,000 MG PO HS, (Reported) Lisinopril 10 Mg Tablet, 20 MG PO DAILY, (Reported) TAKES 2 (10MG) TABLETS EVERY MORNING Niacin/Inositol Niacinate 1 Each Capsule, 500 MG PO DAILY, (Reported) OTC FLUSH FREE Pitavastatin Calcium 2 Mg Tablet, 0.5 TAB PO HS Prescribed by: ALYCE FAJARDO on 08/17/13 1634 Prednisone 20 Mg Tab, 0 PO DAILY Prescribed by: DARIEL JOLLY on 04/14/18 1301 Tamsulosin Hcl 0.4 Mg Cap, 0.8 MG PO DAILY, (Reported) TAKES 2 (0.4MG) CAPSULES EVERY MORNING Warfarin Sodium 3 Mg Tablet, 3 MG PO NEWSOME,,,,SA, (Reported) Warfarin Sodium 3 Mg Tablet, 4.5 MG PO WED & WED, (Reported) TAKES 1 & 1/2 (3MG) TABLET ON WEDNESDAY AND WEDNESDAY Patient Home Medication List Home Medication List Reviewed: Yes Review of Systems Constitutional: no symptoms reported Eyes: No Symptoms Reported Ears, Nose, Mouth, Throat: no symptoms reported Respiratory: no symptoms reported Cardiovascular: see HPI Gastrointestinal: no symptoms reported Genitourinary: no symptoms reported Musculoskeletal: no symptoms reported Skin: no symptoms reported Psychiatric/Neurological: See HPI Endocrine: No Symptoms Reported Hematologic/Lymphatic: No Symptoms Reported Past Xsfjynu-Iwpayk-Hlrdzi Hx Past Med/Social Hx: Reviewed and Corrections made Patient Social History Alcohol Use: Denies Use Recreational Drug Use: No Smoking Status: Never a Smoker 2nd Hand Smoke Exposure: No Recent Foreign Travel: No Contact w/Someone Who Travel: No Recent Infectious Disease Expo: No Recent Hopitalizations: No Physical Abuse: No Sexual Abuse: No Seasonal Allergies Seasonal Allergies: No Past Medical History Surgeries: Yes (RENAL STENTS) Abdominal (Hernia repair), Orthopedic (Cervical spine), Renal, Vascular Surgery (IVC filter, renal artery stents) Respiratory: No Cardiac: Yes (renal artery stenosis status post stenting) Deep Vein Thrombosis, Hypertension, Peripheral Vascular (Renal artery stenosis, carotid artery plaquing) Neurological: No Reproductive Disorders: No Sexually Transmitted Disease: No Genitourinary: Yes Benign Prostatic Hyperpl Gastrointestinal: No Musculoskeletal: Yes (Disc bulging at C5-C6) Arthritis Endocrine: No HEENT: No Loss of Vision: Denies Hearing Impairment: Denies Cancer: No Psychosocial: No Nursing Suicide Risk Score: 0 Integumentary: No Blood Disorders: Yes (Factor V Leiden) Family Medical History Reviewed Nursing Family Hx Family history: Hypertension 03 FATHER 03 MOTHER 09 SISTER History of - disorder 03 FATHER (PASSED FROM ALS LIKE SYMPTOMS, BLOOD CLOTTING DISORDER ) 03 MOTHER Hypercholesterolemia 09 SISTER Stroke 03 MOTHER, Onset:60 years & older Hypertension, Stroke Physical Exam Vital Signs Vital Signs - First Documented 04/14/18 08:34 Temp 97.6 Pulse 70 Resp 18 B/P (MAP) 189/99 (129) Pulse Ox 95 Capillary Refill : Less Than 3 Seconds Height, Weight, BMI Height: 5'8.00" Weight: 190lbs. 0oz. 86.647609iu; 29.7 BMI Method:Stated General Appearance: WD/WN, no apparent distress HEENT: PERRL/EOMI, normal ENT inspection, pharynx normal Neck: normal inspection Respiratory: lungs clear, normal breath sounds, no respiratory distress, no accessory muscle use Cardiovascular: regular rate, rhythm, no edema, no murmur Gastrointestinal: normal bowel sounds, non tender, soft Extremities: normal inspection, no pedal edema, no calf tenderness Neurologic/Psychiatric: ash kier boiler II-XII nml as tested, no motor/sensory deficits, alert, normal mood/affect, oriented x 3 Crainal Nerves: normal hearing, normal speech, PERRL Coordination/Gait: normal finger to nose (And heel to enciso), abnormal gait Motor/Sensory: no motor deficit, no sensory deficit Skin: normal color, warm/dry Stroke Stroke Thrombolytic Exclusion Age 18 or Over: Yes Acute intenal hemorrhage: No History of CVA: No Uncontrolled Coagulation Defec: Yes Intracranial Hemorrhage: No Severe Hypertension: Yes GI or Bleed: No Subarachnoid Hemorrhage: No Intracranial Neoplasm/Aneurysm: No Oral Anticoagulants: Yes Surgery or Trauma: No Puncture of Non-Compressible V: No Recent CPR: No Diabetic Hemorrhagic Retinopat: No Organ Biopsy: No Recent Obstetric Delivery: No Glucose: No Significant Hepatic Dysfunctio: No NIH Stoke Scale >22: No Bacterial Endocarditis: No Pericarditis: No Improving Symptoms: No Platelets: No Progress/Results/Core Measures Results/Orders Lab Results Laboratory Tests Test 04/14/18 08:30 04/14/18 09:15 Range/Units White Blood Count 8.4 4.3-11.0 10^3/uL Red Blood Count 5.06 4.35-5.85 10^6/uL Hemoglobin 14.8 13.3-17.7 G/DL Hematocrit 43 40-54 % Mean Corpuscular Volume 84 80-99 FL Mean Corpuscular Hemoglobin 29 25-34 PG Mean Corpuscular Hemoglobin Concent 35 32-36 G/DL Red Cell Distribution Width 13.5 10.0-14.5 % Platelet Count 229 130-400 10^3/uL Mean Platelet Volume 10.6 H 7.4-10.4 FL Neutrophils (%) (Auto) 61 42-75 % Lymphocytes (%) (Auto) 27 12-44 % Monocytes (%) (Auto) 8 0-12 % Eosinophils (%) (Auto) 3 0-10 % Basophils (%) (Auto) 1 0-10 % Neutrophils # (Auto) 5.1 1.8-7.8 X 10^3 Lymphocytes # (Auto) 2.2 1.0-4.0 X 10^3 Monocytes # (Auto) 0.7 0.0-1.0 X 10^3 Eosinophils # (Auto) 0.2 0.0-0.3 10^3/uL Basophils # (Auto) 0.1 0.0-0.1 10^3/uL Prothrombin Time 30.2 H 12.2-14.7 SEC INR Comment 2.9 H 0.8-1.4 Activated Partial Thromboplast Time 45 H 24-35 SEC Sodium Level 140 135-145 MMOL/L Potassium Level 3.8 3.6-5.0 MMOL/L Chloride Level 109 H 98-107 MMOL/L Carbon Dioxide Level 24 21-32 MMOL/L Anion Gap 7 5-14 MMOL/L Blood Urea Nitrogen 15 7-18 MG/DL Creatinine 1.27 0.60-1.30 MG/DL Estimat Glomerular Filtration Rate 56 BUN/Creatinine Ratio 12 Glucose Level 148 H 70-105 MG/DL Calcium Level 9.8 8.5-10.1 MG/DL Magnesium Level 1.9 1.8-2.4 MG/DL Total Bilirubin 0.6 0.1-1.0 MG/DL Aspartate Amino Transf (AST/SGOT) 20 5-34 U/L Alanine Aminotransferase (ALT/SGPT) 22 0-55 U/L Alkaline Phosphatase 101 40-136 U/L Troponin I < 0.30 <0.30 NG/ML Total Protein 7.1 6.4-8.2 GM/DL Albumin 3.9 3.2-4.5 GM/DL TSH [place] Testing 0.69 0.35-4.94 UIU/ML Urine Color YELLOW Urine Clarity CLEAR Urine pH 5 5-9 Urine Specific [place] 1.020 1.016-1.022 Urine Protein 1+ H NEGATIVE Urine Glucose (UA) NEGATIVE NEGATIVE Urine Ketones NEGATIVE NEGATIVE Urine Nitrite NEGATIVE NEGATIVE Urine Bilirubin NEGATIVE NEGATIVE Urine Urobilinogen NORMAL NORMAL MG/DL Urine Leukocyte Esterase 1+ H NEGATIVE Urine RBC (Auto) NEGATIVE NEGATIVE Urine RBC NONE /HPF Urine WBC RARE /HPF Urine Squamous Epithelial Cells RARE /HPF Urine Crystals NONE /LPF Urine Bacteria TRACE /HPF Urine Casts NONE /LPF Urine Mucus NEGATIVE /LPF Urine Culture Indicated NO My Orders Orders - DARIEL LAGUNA MD Saline Lock/Iv-Start (04/14/18 08:43) Ekg Tracing (04/14/18 08:43) Monitor-Rhythm Ecg Trace Only (04/14/18 08:43) Cbc With Automated Diff (04/14/18 08:43) Comprehensive Metabolic Panel (04/14/18 08:43) Magnesium (04/14/18 08:43) Protime With Inr (04/14/18 08:43) Partial Thromboplastin Time (04/14/18 08:43) Troponin I (04/14/18 08:43) Ua Culture If Indicated (04/14/18 08:43) Ct Head Wo-R/O Stroke (04/14/18 08:43) Thyroid Analyzer (04/14/18 08:43) Us Carotid Evan Complete 01441 (04/14/18 09:40) Ns Iv 1000 Ml (Sodium Chloride 0.9%) (04/14/18 11:17) Medications Given in ED Current Medications Medications Dose Ordered Sig/Maynor Route Start Time Stop Time Status Last Admin Dose Admin Sodium Chloride 1,000 ml @ 0 mls/hr Q0M ONCE IV 04/14/18 11:17 04/14/18 11:18 DC 04/14/18 11:25 0 MLS/HR Vital Signs/I&O 04/14/18 04/14/18 08:34 12:20 Temp 97.6 97.6 Pulse 70 70 Resp 18 18 B/P (MAP) 189/99 (129) 189/99 (129) Pulse Ox 95 95 Blood Pressure Mean: 129 Progress Progress Note : Progress Note No measurable neurologic deficits were seen on exam. During his ER visit he complained of lightheadedness upon standing. Orthostatic blood pressures revealed questionable significant change. Lying blood pressure was 171/96, sitting 160/100, standing 141/84. A liter of IV fluid was administered. This seemed to resolve his dizziness. However, on the way out to his car he developed paresthesias of the arm and leg again. I suspect this may be due to cervical radiculopathy. Initial ECG Impression Date: Apr 14, 2018 Initial ECG Impression Time: 08:24 Initial ECG Rate: 63 Initial ECG Rhythm: Normal Sinus Initial ECG Intervals: Normal Initial ECG Impression: Normal Comment Normal sinus rhythm with no ST elevation or depression. No abnormal intervals or axis deviation. Diagnostic Imaging Diagonstic Imaging: CT Plain Films/CT/US/NM/MRI: head Comments CT head viewed by me and report reviewed. See report below: NAME: AMBER MONTEIRO [facility] REC#: [id number] PT STATUS: REG ER : 1945 PHYSICIAN: DARIEL LAGUNA MD ADMIT DATE: 04/14/18/ER Draft Date of Exam:04/14/18 CT HEAD WO-R/O STROKE INDICATION: Left arm numbness and dizziness. Noncontrast brain CT is performed and compared to 08/16/2013. FINDINGS: There are no extra-axial fluid collections. No intracranial hemorrhage. No intracranial mass or mass effect. No midline shift. Ventricles are normal in size and position. There were no focal parenchymal abnormalities in the brain. Calvarial windows were unremarkable. IMPRESSION: No acute intracranial abnormalities visualized. Dictated on workstation # [id number] Dict: 04/14/18922 Trans: 04/14/1830 [id number] Interpreted by: CHONG GARCIA MD Departure Impression Primary Impression: Paresthesia of left arm and leg Additional Impressions: Facial paresthesia Lightheadedness Hypertension Qualified Codes: I10 - Essential (primary) hypertension Disposition: 01 HOME, SELF-CARE Condition: Improved Departure-Patient Inst. Decision time for Depature: 12:10 Referrals: ALYCE FAJARDO MD (PCP/Family) Primary Care Physician Patient Instructions: High Blood Pressure (DC), Paresthesias (DC) Add. Discharge Instructions: Drink plenty of clear liquids. Resume your medications as previously prescribed. Follow-up with Dr. Reddy and Dr. Fajardo within the next week or two. Return to care if symptoms worsen. All discharge instructions reviewed with patient and/or family. Voiced understanding. Scripts Prednisone (Prednisone) 20 Mg Tab 0 PO DAILY, #4 TAB Prov: DARIEL LAGUNA MD 04/14/18 Copy Copies To 1: ALYCE FAJARDO MD Copies To 2: SUNNY REDDY MD FACP FAC CCDS DARIEL LAGUNA MD Apr 14, 2018 09:40
[2018-04-14 09:53] LABS: WBC,URINE RARE /HPF
[2018-04-14 09:54] LABS: BACTERIA,URINE TRACE /HPF; SQUAMOUS EPITHELIAL CELL,UR RARE /HPF
--- NOTE | 2018-04-14 10:48 | Diagnostic Imaging Report ---
PROCEDURE: US carotid duplex, bilateral. TECHNIQUE: Multiple real-time grayscale images were obtained over the carotid arteries in various projections, bilaterally. Additional duplex Doppler and color Doppler images were also obtained. INDICATION: Left-sided weakness. There is mild plaquing at the carotid bifurcations and proximal internal carotid arteries bilaterally. No significant velocity elevation is identified. No high-grade stenosis is seen. Both vertebral arteries demonstrate antegrade flow. IMPRESSION: Mild bilateral carotid plaque. There is no evidence of a hemodynamically significant stenosis. Parameters based on the consensus panel Khalil-Scale and Doppler ultrasound criteria published July 2003, Radiology, Volume 229. DOPPLER (peak systolic velocity M/S Right Left CCA .69 .67 ICA Proximal 1.22 .54 ICA Mid .67 .70 ICA Distal .76 .97 RATIO 1.8 1.5 ECA 1.09 .86 VERT .42 .41 Dictated by: Dictated on workstation # [id number]
[2018-04-14] MEDS ORDERED: NS IV 1000 ML 1,000 ML IV ONE (11:17)
[2018-04-14 12:20] VITALS: BP 189/99
[2018-04-14] MEDS ORDERED: PRD20T PO (13:01)
== END 2018-04-14 12:27 | disposition home or self-care (01) ==
LOC: EDUNIT# 08:15 → ER 08:16
DX: R20.2 Paresthesia of skin (principal); R42 Dizziness and giddiness; I10 Essential (primary) hypertension; D68.2 Hereditary deficiency of other clotting factors; I73.9 Peripheral vascular disease, unspecified; Z82.49 Family history of ischemic heart disease and other diseases of the circulatory system; Z79.01 Long term (current) use of anticoagulants; Z86.718 Personal history of other venous thrombosis and embolism; Z87.19 Personal history of other diseases of the digestive system; Z95.5 Presence of coronary angioplasty implant and graft; Z88.6 Allergy status to analgesic agent; Z79.52 Long term (current) use of systemic steroids
CPT/HCPCS: 36415; 70450; 80053; 81000; 83735; 84443; 84484; 85025; 85610; 85730; 93005; 93041; 93880; 96360

== ENCOUNTER → 2018-04-15 | Outpatient (CLI) | payer MEDICARE ==
[~2018-04-15] MED LIST changes: +PRD20T PO
--- NOTE | 2018-04-15 10:51 | Diagnostic Imaging Report ---
INDICATION: History of cervical spine surgery several years ago. Now with pain and numbness in the left neck. TECHNIQUE: AP, lateral and odontoid views cervical spine.. CORRELATION STUDY: None FINDINGS: Postop change of anterior cervical decompression and fusion with plate, screws and intervertebral bone plug C5-C6 level. There appears to be likely fusion across the disc space with alignment anatomic. Nonfused segments demonstrate straightening. There is mild anterolisthesis of C6 on C7. The cervical thoracic junction is not well visualized. Prominent ossification noted anteriorly particularly at the C4-C5, C6-C7 disc space. Odontoid appearing unremarkable with lateral mass of C1 and C2 aligned. IMPRESSION: 1. Postsurgical change of prior anterior cervical decompression and fusion C5-C6 level appearing to be intact and in anatomic alignment. Additional multifocal degenerative changes about the cervical spine. Given symptoms, if further assessment is desired, MRI may be of additional benefit. Dictated by: Dictated on workstation # [id number]
== END ==
LOC: RAD 10:13
PROVIDERS: ATTEND Nurse Practitioner Family
DX: M47.812 Spondylosis without myelopathy or radiculopathy, cervical region (principal); Z98.1 Arthrodesis status
CPT/HCPCS: 72040

== ENCOUNTER → 2018-04-23 | Outpatient (CLI) | payer MEDICARE ==
--- NOTE | 2018-04-23 11:07 | Diagnostic Imaging Report ---
PROCEDURE: MR imaging cervical spine without contrast. TECHNIQUE: Multiplanar, multisequence MR imaging of the cervical spine was performed without contrast. INDICATION: Neck pain. Numbness. COMPARISON: Cervical spine radiographs 04/15/2018. FINDINGS: There are postoperative findings of anterior fusion at C5-C6. Normal alignment. Mild diffuse degenerative endplate changes. Bone marrow signal is otherwise unremarkable. No abnormal signal in the cervical spinal cord. The visualized paravertebral soft tissues are unremarkable. The cervical carotid and vertebral artery flow voids are preserved. C2-C3: No spinal canal or neuroforaminal narrowing. C3-C4: Uncovertebral and facet arthropathy result in moderate left neuroforaminal narrowing. No spinal canal or right neuroforaminal narrowing. C4-C5: Uncovertebral and facet arthropathy result in moderate bilateral neuroforaminal narrowing. Posterior disc osteophyte complex results in mild spinal canal narrowing. C5-C6: No spinal canal narrowing. There is moderate left neuroforaminal narrowing. C6-C7: Uncovertebral and facet arthropathy result in moderate right and mild left neuroforaminal narrowing. Posterior disc osteophyte complex results in mild spinal canal narrowing. C7-T1: No spinal canal or neuroforaminal narrowing. IMPRESSION: 1. Postoperative findings of anterior fusion at C5-C6. 2. Scattered moderate neuroforaminal narrowing detailed above level by level. 3. No high-grade spinal canal narrowing. No abnormal signal in the cervical spinal cord. No acute osseous findings. Dictated by: Dictated on workstation # [id number]
== END ==
LOC: RAD 10:01
PROVIDERS: ATTEND Nurse Practitioner Family
DX: M48.02 Spinal stenosis, cervical region (principal); M99.71 Connective tissue and disc stenosis of intervertebral foramina of cervical region; M47.812 Spondylosis without myelopathy or radiculopathy, cervical region; M46.86 Other specified inflammatory spondylopathies, lumbar region; Z98.1 Arthrodesis status
CPT/HCPCS: 72141

== ENCOUNTER 2018-11-10 13:23 | Outpatient (CLI) | payer MEDICARE ==
[~2018-11-10] VITALS: Ht 172.7 cm; Wt 90.7 kg
[~2018-11-10 13:23] MED LIST changes: +AMLO5TAB9 PO; +CARV12.53 PO; +CHOL-11 PO; +LISI-552 PO; +MAGN250T13 PO; +TAMS0.4C98 PO; +UBIQ100C3 PO; +WARF3TAB56 PO
== END 2018-11-10 14:01 | disposition home or self-care (01) ==
LOC: PREOP 13:23
PROVIDERS: ATTEND Specialist
DX: Z01.818 Encounter for other preprocedural examination (principal)

== ENCOUNTER 2018-11-11 07:49 | Day surgery (SDC) | payer MEDICARE ==
[~2018-11-11] VITALS: Ht 172.7 cm; Wt 90.7 kg
[2018-11-11 08:00] VITALS: BP 159/83
[2018-11-11] MEDS ORDERED: TIMOLOL MALEATE 0.5% 5 ML (TIMOPTIC) BTL OU PRN (08:00)
[2018-11-11] MEDS ORDERED: MOXIFLOXACIN OPHTH SOLN 5 MG/ML 0.3 ML SYRINGE OP ONE (08:00)
[2018-11-11] MEDS ORDERED: LIDOCAINE PF 1% 2 ML AMP IR PRN (08:00)
[2018-11-11] MEDS ORDERED: POVIDONE (BETADINE) OPHTH SOLN 5% 30 ML OP ONE (08:00)
[2018-11-11] MEDS: TETRACAINE 0.5% OPHTH SOLN 4 ML BTL (SINGLE DOSE ONLY) OU PRN ×4 (08:10→08:24)
[2018-11-11] MEDS: CYCLOPENTOLATE 1% (CYCLOGYL) 2 ML DROPS OP SCH ×3 (08:15→08:24)
[2018-11-11] MEDS: PHENYLEPHRINE 10% OPHTH (NEO-SYN) 5 ML BTL OU SCH ×3 (08:15→08:24)
[2018-11-11] MEDS ORDERED: MIDAZOLAM 2 MG/2 ML (VERSED) VIAL ONE (08:35)
--- NOTE | 2018-11-11 08:54 | Ophthalmologist Pre-Op Note ---
Pre-Operative Progress Note H&P Reviewed The H&P was reviewed, patient examined and no changes noted. Date H&P Reviewed: Nov 11, 2018 Time H&P Reviewed: 08:54 Pre-Op Dx Cataract, Right Eye MICHELINE MARINELLI MD Nov 11, 2018 08:54
--- NOTE | 2018-11-11 09:18 | Ophthalmology Operative Report ---
Cataract, Miotic Pupil PREOPERATIVE DIAGNOSIS: 1. Cataract Right Eye 2. Miotic Pupil/Floppy Iris Syndrome POSTOPERATIVE DIAGNOSIS: 1. Cataract Right Eye 2. Miotic Pupil PROCEDURE: 1. Cataract removal and placement of posterior chamber implant, right eye 2. Pupillary expansion with malyugin ring SURGEON: Jeff Marinelli ANESTHESIA: Topical with sedation COMPLICATIONS: None ESTIMATED BLOOD LOSS: Minimal DESCRIPTION OF PROCEDURE: After proper informed consent was obtained, the patient, a 72 male, was taken to the Operating Room and the right eye was anesthetized with Tetracaine. The eye was then prepped and draped in the usual manner. A wire lid speculum was placed. A paracentesis was made at the left hand position. Preservative free lidocaine was injected into anterior chamber followed by viscoelastic. A clear corneal incision was made in the temporal position. The malyugin ring was injected into the anterior chamber and the pupil was dilated. A capsulorrhexis was preformed and the central nuclear and cortical material were removed. The posterior capsule was polished and [place] [id number] 18.0 IOL was placed into the capsular bag. The malyugin ring was removed. The residual viscoelastic was aspirated and the balanced saline solution was injected into the anterior chamber. Moxifloxacin was injected into the anterior chamber. The wound was checked and found to be water tight. The patient tolerated the procedure well without complications. JEFF MARINELLI MD Nov 11, 2018 09:18
[2018-11-11] MEDS ORDERED: acetaZOLAMIDE ER 500 MG CAP (DIAMOX SEQUELS) PO ONE (09:30)
[2018-11-11 09:35] VITALS: BP 146/77
--- OUTSIDE RECORDS SUMMARY | 2018-11-11 10:04 | XMS REPORT | Clinical Summary ---
Author Author [facility] Organization [facility] Address Unknown Phone Unavailable Care Team Providers Care Natural Resources Professor Name Role Phone PCP Unavailable Source Comments Some departments are not documenting in the electronic medical record. If you do not see the information that you expected, contact Release of Information in the Health Information Management department at [phone] for further assistance in locating additional records.[facility] Allergies Comments Active Allergy Reactions Severity Noted Date Allergy recorded in SMS: Aspirin~Reactions: HIVES Aspirin Medium 12/07/2006 Medications Not on file Active Problems Not on file Social History Date Tobacco Use Types Packs/Day Years Used Never Assessed Sex Assigned at Date Recorded Not on file Industry Job Start Date Occupation Not on file Not on file Not on file Travel End Travel History Travel Start No recent travel history available. Last Filed Vital Signs Not on file Plan of Treatment Health Maintenance Due Date Last Done Comments HEPATITIS C SCREENING 1945 PHYSICAL (COMPREHENSIVE) 1953 EXAM DTAP/TDAP VACCINES (1 - 1964 Tdap) COLORECTAL CANCER 1996 SCREENING SHINGLES RECOMBINANT 1996 VACCINE (1 of 2) PNEUMONIA (PCV13/PPSV23) 12/22/2011 VACCINES (1 of 2 - PCV13) INFLUENZA VACCINE 04/27/2018 Results Not on filefrom Last 3 Months
--- OUTSIDE RECORDS SUMMARY | 2018-11-11 10:04 | XMS REPORT | Clinical Summary ---
Author Author [facility] Organization [facility] Address Unknown Phone Unavailable Care Team Providers Care Rehab Consultant Name Role Phone PCP Unavailable Allergies Not on File Current Medications Not on file Active Problems Not on file Social History Tobacco Use Types Packs/Day Years Used Date Never Assessed Sex Assigned at Date Recorded Not on file Last Filed Vital Signs Not on file Plan of Treatment Not on file Results Not on filefrom Last 3 Months
--- OUTSIDE RECORDS SUMMARY | 2018-11-11 10:06 | XMS REPORT | CCD ---
Author Author Mahnaz Fajardo Organization Mahnaz Fajardo MD, [facility] Address [address] [place] [address] Phone Care Team Providers Care Corn Cooker Name Role Phone PP Unavailable CCM Unavailable Summary Purpose Interface Exchange Insurance Providers Payer name Policy type / Coverage type Covered republican ID Effective Begin Date Effective End Date [employer] Medicare Part B [id number] 2016 Unknown Family history Mother Diagnosis Age At Onset Stroke Unknown Father Diagnosis Age At Onset Hypertension Unknown Sister Diagnosis Age At Onset Hypertension Unknown Social History Social History Element Codes Description Effective Dates Marital status Unknown 11/09/[address]: 0198321 Former smoker quit 1988 11/09/2012 Allergies, Adverse Reactions, Alerts Substance Reaction Codes Entered Date Inactivated Date Status ASPIRIN (TARTRAZINE ONLY) hives, Unknown 11/09/2012 No Inactive Date Active Past Medical History Illness Codes Condition Status Onset Date Resolved Date Cervicalgia ICD-9: 723.1 ICD-10: M54.2 Active 04/15/2018 Unknown Essential (primary) hypertension ICD-9: 401.9 ICD-10: I10 Active 05/06/2016 Unknown Paresthesia of skin ICD-9: 782.0 ICD-10: R20.2 Active 04/15/2018 Unknown Benign prostatic hyperplasia with lower urinary tract symptoms ICD-9: 600.91 ICD-10: N40.1 Active 12/01/2017 Unknown Encounter for general adult medical examination with abnormal findings ICD-9: V70.0 ICD-10: Z00.01 Active 12/01/2017 Unknown Other acute sinusitis ICD-9: 461.8 ICD-10: J01.80 Active 10/06/2017 Unknown Other allergic rhinitis ICD-9: 477.8 ICD-10: J30.89 Active 10/06/2017 Unknown Other terminal supervisor (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 ICD-9: V58.69 ICD-10: Z79.899 [...] -9: 719.42 ICD-10: M25.522 Active 02/24/2017 Unknown Impaired fasting glucose ICD-9: 790.21 ICD-10: [...] Problems Condition Codes Effective Dates Condition Status Cervicalgia ICD-9: 723.1 ICD-10: M54.2 04/15/2018 Active Essential (primary) hypertension ICD-9: 401.9 ICD-10: I10 05/06/2016 Active Paresthesia of skin ICD-9: 782.0 ICD-10: R20.2 04/15/2018 Active Benign prostatic hyperplasia with lower urinary tract symptoms ICD-9: 600.91 ICD-10: N40.1 12/01/2017 Active Encounter for general adult medical examination with abnormal findings ICD-9: V70.0 ICD-10: Z00.01 12/01/2017 Active Other acute sinusitis ICD-9: 461.8 ICD-10: J01.80 10/06/2017 Active Other allergic rhinitis ICD-9: 477.8 ICD-10: J30.89 10/06/2017 Active Other residential (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 ICD-9: V58.69 ICD-10: Z79.899 [...] ICD -9: 719.42 ICD-10: M25.522 02/24/2017 Active Impaired fasting glucose ICD-9: 790.21 ICD-10: [...] Start Date Stop Date Status Fill Instructions Flomax 0.4 mg capsule RxNorm: 384419 TAKE 2 CAPSULES BY MOUTH DAILY 11/07/2018 11/01/2019 Active - First Attempt Ref: [id number] Coreg 12.5 mg tablet RxNorm: 200846 TAKE 1 TABLET BY MOUTH TWO TIMES DAILY 09/21/2018 03/19/2019 Active - Ref: [id number] lisinopril 20 mg tablet RxNorm: 752056 1 Tablet(s) PO BID 05/1708/09/2019 Active Augmentin 500 mg-125 mg tablet RxNorm: 603735 1 Tablet(s) PO TID 04/29/2018 05/08/2018 Inactive Diflucan 150 mg tablet RxNorm: 256636 1 Tablet(s) PO daily 11/201705/03/2018 Inactive lisinopril 40 mg tablet RxNorm: 086707 1/2 Tablet(s) PO BID 03/03/2019 Active change from lisinopril 20 BID lisinopril 40 mg tablet RxNorm: 591536 1/2 Tablet(s) PO BID 03/08/2018 Inactive Coreg 12.5 mg tablet RxNorm: 668540 TAKE 1 TABLET BY MOUTH TWO TIMES DAILY 02/23/2018 08/21/2018 Inactive - Ref: [id number] amoxicillin 500 mg capsule RxNorm: 347343 1 Capsule(s) PO TID 10/19/2017 10/28/2017 Inactive amoxicillin 500 mg capsule RxNorm: 669612 1 Capsule(s) PO TID 10/19/2017 10/18/2017 Inactive Kenalog 40 mg/mL suspension for injection RxNorm: 9057137 1 Milliliter(s) Inj 10/06/2017 10/06/2017 Inactive Zithromax Z-[place] 250 mg tablet RxNorm: 505830 1 Tablet(s) PO UD 10/06/2017 02/22/2018 Inactive warfarin 3 mg tablet RxNorm: 039485 TAKE 1 TABLET BY MOUTH ON WEDNESDAY , WEDNESDAY , WEDNESDAY,WEDNESDAY, WEDNESDAY THEN 1 AND 1/2 TABLETS BY MOUTH ON WEDNESDAY AND Wednesday09/30/2017 06/21/2019 Active - Ref: [id number] Flomax 0.4 mg capsule RxNorm: 922438 TAKE 2 CAPSULES BY MOUTH DAILY 09/30/2017 11/06/2018 Inactive - Ref: [id number] omeprazole 20 mg capsule,delayed release RxNorm: 876958 1 Capsule(s) PO daily 06/23/2017 07/22/2017 Inactive lisinopril 20 mg tablet RxNorm: 277615 1 Tablet(s) PO BID 04/2103/08/2018 Inactive Coreg 12.5 mg tablet RxNorm: 287093 1 Tablet(s) PO BID 201605/20/2017 Inactive Coreg 12.5 mg tablet RxNorm: 333328 1 Tablet(s) PO BID 201604/20/2017 Inactive Augmentin 500 mg-125 mg tablet RxNorm: 141745 1 Tablet(s) PO TID 04/14/2017 04/22/2017 Inactive Diflucan 150 mg tablet RxNorm: 976235 1 Tablet(s) PO daily 04/18/2017 Inactive Flomax 0.4 mg capsule RxNorm: 379685 Take 2 capsules by mouth daily 03/31/2017 09/29/2017 Inactive - First Attempt Ref: [id number] lisinopril 20 mg tablet RxNorm: 384835 1 Tablet(s) PO BID 03/1104/20/2017 Inactive Voltaren 1 % topical gel RxNorm: 785665 1 Application TOP BID as needed 03/09/2017 No Stop Date Active lisinopril 20 mg tablet RxNorm: 218812 2 Tablet(s) PO BID 02/2603/10/2017 Inactive cyclobenzaprine 5 mg tablet RxNorm: 761513 1 Tablet(s) PO TID as needed muscle spasms 02/24/2017 02/28/2017 Inactive warfarin 3 mg tablet RxNorm: 721582 1 Tablet(s) PO daily 201609/29/2017 Inactive lisinopril 20 mg tablet RxNorm: 361345 Take 2 tablets by mouth twice a day 09/22/2016 02/25/2017 Inactive - Ref: [id number] lisinopril 20 mg tablet RxNorm: 584579 1 Tablet(s) PO BID 05/0702/25/2017 Inactive First Attempt Coreg 25 mg tablet RxNorm: 864223 1 Tablet(s) PO BID 201502/23/[address] Reddy lisinopril 20 mg tablet RxNorm: 204518 1 Tablet(s) PO daily Take 2 tablets by mouth bid 05/07/2016 05/06/2016 Inactive First Attempt Flomax 0.4 mg capsule RxNorm: 712332 Take 2 capsules by mouth daily 03/15/2016 03/30/2017 Inactive - First Attempt lisinopril 20 mg tablet RxNorm: 949095 2 Tablet(s) PO BID Take 2 tablets by mouth bid 03/04/2016 05/06/2016 Inactive First Attempt lisinopril 20 mg tablet RxNorm: 534926 1 Tablet(s) PO BID Take 2 tablets by mouth daily 03/02/2016 03/03/2016 Inactive First Attempt Phenergan with Codeine Syrup RxNorm: 5 Milliliter(s) PO Q6 PRN 10/31/2015 No Stop Date Active Kenalog 40 mg/mL suspension for injection RxNorm: 5243108 Milliliter(s) Inj 10/31/2015 10/31/2015 Inactive warfarin 3 mg tablet RxNorm: 235834 Tablet(s) Take 1 tablet by mouth on tues,wed, thur,sat and sun and 1 and 1/2 tablets by mouth on wed and wed10/31/2015 07/23/2016 Inactive Zithromax Z-[place] 250 mg tablet RxNorm: 706207 1 Tablet(s) PO UD 10/31/2015 11/04/2015 Inactive zpack Coreg 3.125 mg tablet RxNorm: 286796 1 Tablet(s) PO BID 201405/06/2016 Inactive warfarin 3 mg tablet RxNorm: 574497 Take 1 tablet by mouth on tues,wed,thur,sat and sun and 1 and 1/2 tablets by mouth on wed and wed06/05/2015 Inactive 2nd Attempt warfarin 3 mg tablet RxNorm: 722812 Tablet(s) Take 1 tablet by mouth on tu,wed, thur,sat and sun and 1 and 1/2 tablets by mouth on wed and wed06/06/2015 10/30/2015 Inactive 2nd Attempt Flomax 0.4 mg capsule RxNorm: 751414 Take 2 capsules by mouth daily 04/29/2015 01/23/2016 Inactive First Attempt lisinopril 10 mg tablet RxNorm: 372376 Take 2 tablets by mouth daily 04/29/2015 01/23/2016 Inactive First Attempt warfarin 3 mg tablet RxNorm: 713491 one wed thur sat sun 4.5mg wednesday Tablet(s) PO daily 07/25/2014 06/05/2015 Inactive Flomax 0.4 mg capsule RxNorm: 278477 2 Capsule(s) PO daily 07/2504/28/2015 Inactive lisinopril 10 mg tablet RxNorm: 151191 2 Tablet(s) PO daily 04/28/2015 Inactive Coreg 3.125 mg tablet RxNorm: 988827 1 Tablet(s) PO BID 201306/18/2015 Inactive cephalexin 500 mg capsule RxNorm: 213413 1 Capsule(s) PO QID 10/30/2015 Inactive lisinopril 20 mg tablet RxNorm: 564989 1 Tablet(s) PO BID 11/1003/09/2014 Inactive Flomax 0.4 mg capsule RxNorm: 304058 2 Capsule(s) PO daily 10/1207/24/2014 Inactive Coreg 3.125 mg tablet RxNorm: 623147 1 Tablet(s) PO BID 201307/24/2014 Inactive lisinopril 10 mg tablet RxNorm: 472338 2 Tablet(s) PO daily 11/09/2013 Inactive warfarin 3 mg tablet RxNorm: 950693 one wed sat sun 4.5mg wednesday Tablet(s) PO daily 10/12/2013 07/24/2014 Inactive o Flomax 0.4 mg capsule RxNorm: 564874 2 Capsule(s) PO daily 06/0510/11/2013 Inactive Zetia 10 mg tablet RxNorm: 312375 1 Tablet(s) PO daily 201205/15/2013 Inactive Zetia 10 mg tablet RxNorm: 690667 1 Tablet(s) PO daily 201209/12/2013 Inactive Carafate 100 mg/mL Oral Susp RxNorm: 179893 10 Milliliter(s) PO QID 05/10/2013 10/30/2015 Inactive dispense one month supply Flomax 0.4 mg capsule RxNorm: 650271 2 Capsule(s) PO daily 05/1006/04/2013 Inactive Carafate 100 mg/mL Oral Susp RxNorm: 951812 10 Milliliter(s) PO QID 02/23/2013 04/23/2013 Inactive dispense one month supply gabapentin 100 mg capsule RxNorm: 066250 1 Capsule(s) PO daily one at bedtime and one up to three times daily as needed for nerve pain in leg 01/16/2013 05/09/2013 Inactive gabapentin 100 mg capsule RxNorm: 405384 1 Capsule(s) PO daily one at bedtime and one up to three times daily as needed for nerve pain in leg 01/12/2013 01/15/2013 Inactive warfarin 3 mg tablet RxNorm: 071606 Tablet(s) PO 12/05/2012 10/11/2013 Inactive one wedur sat4.5 mg wed lisinopril 10 mg tablet RxNorm: 381016 2 Tablet(s) PO daily 02/201306/27/2013 Inactive gabapentin 100 mg capsule RxNorm: 136041 1 Capsule(s) PO Q8 PRN one at bedtime and one up to three times daily as needed for nerve pain in leg 11/30/2012 01/11/2013 Inactive Coreg 3.125 mg tablet RxNorm: 868108 1 Tablet(s) PO BID 201201/07/2013 Inactive lisinopril 10 mg tablet RxNorm: 691397 1.5 Tablet(s) PO daily 11/09/2012 11/29/2012 Inactive Co Q-10 oral RxNorm: 83836 oral No Start Date Active famotidine 20 mg tablet RxNorm: 747185 1 Tablet(s) PO QAM No Start Date Active Coreg 12.5 mg tablet RxNorm: 836979 1 Tablet(s) PO BID No Start Date 04/20/2017 Inactive Voltaren 1 % topical gel RxNorm: 281502 1 Application TOP BID as needed No Start Date 03/08/2017 Inactive lisinopril 20 mg tablet RxNorm: 983189 1 Tablet(s) PO BID No Start Date 05/16/2018 Inactive warfarin 3 mg tablet RxNorm: 500270 Tablet(s) PO No Start Date 12/04/2012 Inactive one e thur sat4.5 mg wedd Flomax 0.4 mg capsule RxNorm: 176158 1 Capsule(s) PO daily No Start Date 05/09/2013 Inactive niacin 500 mg tablet RxNorm: 109197 1 Tablet(s) PO daily No Start Date 03/01/2016 Inactive Medication Administered Medication Codes Instructions Start Date Status Kenalog 40 mg/mL suspension for injection RxNorm: 8152146 1Milliliter 10/06/2017 No longer Active Kenalog 40 mg/mL suspension for injection RxNorm: 6459238 Milliliter 10/31/2015 No longer Active Immunizations No Immunization data Assessments Condition Codes Effective Dates Cervicalgia ICD-10: M54.2 ICD-9: 723.1 04/15/2018 Essential (primary) hypertension ICD-10: I10 ICD-9: 401.9 04/15/2018 Paresthesia of skin ICD-10: R20.2 ICD-9: 782.0 04/15/2018 Benign prostatic hyperplasia with lower urinary tract symptoms ICD-10: N40.1 ICD-9: 600.91 12/01/2017 Other residential (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 ICD-10: Z79.899 ICD-9: V58.69 10/06/2017 Other acute sinusitis ICD-10: J01.80 ICD-9: 461.8 10/06/2017 Other allergic rhinitis ICD-10: J30.89 ICD-9: 477.8 10/06/2017 Pain in right elbow ICD-10: M25.521 ICD-9: 719.42 06/23/2017 Gastro-esophageal reflux disease without esophagitis ICD-10 : K21.9 ICD-9: 530.81 06/23/2017 Other dorsalgia ICD-10: M54.89 ICD-9: 723.1 04/14/2017 Other conditions associated with Lyme disease ICD-10: A69.29 ICD-9: 088.81 04/14/2017 Other fatigue ICD-10: R53.83 ICD-9: 780.79 02/24/2017 Pain in left elbow ICD-10: M25.522 ICD-9: 719.42 02/24/2017 Pain in joints of left hand ICD-10: M25.542 ICD-9: 719.44 02/24/2017 Pain in joints of right hand ICD-10: M25.541 ICD-9: 719.44 02/24/2017 Impaired fasting glucose ICD-10: R73.01 ICD-9: 790.21 03/02/2016 Acute recurrent maxillary sinusitis ICD-10: J01.01 ICD-9: 461.0 10/31/2015 Mixed hyperlipidemia ICD-10: E78.2 ICD-9: 272.4 10/31/2015 CELLULITIS ICD-9: 682.9 01/25/2014 Cough ICD-9: 786.2 11/29/2013 Acute maxillary sinusitis ICD-9: 461.0 Encounter for long-term (current) use of other high-risk medications ICD-9: V58.69 11/10/2013 ESSENTIAL HYPERTENSION SNOMED: [id number] ICD-9: 401.9 11/10/2013 HYPERLIPIDEMIA ICD-9: 272.4 05/10/2013 Sore throat ICD-9: 462 02/23/2013 Allergic rhinitis ICD-9: 477.9 2012 Esophageal reflux ICD-9: 530.81 2012 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 11/30/2012 Renal artery stenosis ICD-9: 440.1 2012 Hip pain ICD-9: 719.45 11/09/2012 Reason For Visit Reason For Visit Effective Dates Notes Hospital Follow Up 04/15/2018 well man exam (65+ years) 12/01/2017 cough 10/06/2017 gas and bloating 06/23/2017 back pain 04/14/2017 forearm pain 02/24/2017 ribs blood pressure followup 05/07/2016 blood pressure followup 03/02/2016 fever 10/31/2015 skin lesion 01/25/2014 cough 11/29/2013 blood pressure followup 11/10/2013 hypertension 05/10/2013 sore throat 02/23/2013 hypertension 01/12/2013 hypertension 11/30/2012 hypertension 11/09/2012 Results Observation Observation Code Item Item Code Result Date Pt Prs1246 PT 25.5 seconds 08/29/2018 Pt Zng7725 INR 2.4 08/29/2018 Pt Nba2423 Low Intensity - 1.5-2.0 08/29/2018 Pt Cra9441 Mod intensity - 2.0-3.0 08/29/2018 Pt Dly4732 Hi intensity - 3.0-4.0 08/29/2018 Pt Gjv9534 PT 35.9 seconds 08/11/2018 Pt Bgl7800 INR 3.6 08/11/2018 Pt Nkb3638 Low Intensity - 1.5-2.0 08/11/2018 Pt Pvp8740 Mod intensity - 2.0-3.0 08/11/2018 Pt Zkh1261 Hi intensity - 3.0-4.0 08/11/2018 Pt Nxu7115 PT 27.2 seconds 06/16/2018 Pt Qjj0729 INR 2.5 06/16/2018 Pt Iey5922 Low Intensity - 1.5-2.0 06/16/2018 Pt Uyi5053 Mod intensity - 2.0-3.0 06/16/2018 Pt Fri1024 Hi intensity - 3.0-4.0 06/16/2018 Pt Kuv4989 PT 38.0 seconds 04/04/2018 Pt Uul1533 INR 3.8 04/04/2018 Pt Rst4120 Low Intensity - 1.5-2.0 04/04/2018 Pt Wht5552 Mod intensity - 2.0-3.0 04/04/2018 Pt Amr7915 Hi intensity - 3.0-4.0 04/04/2018 Magnesium Ord90 Mag 1.9 mg/dL 04/04/2018 Metabolic Ord15 NA 139 mEq/L 04/04/2018 Metabolic Ord15 K 4.5 mEq/L 04/04/2018 Metabolic Ord15 CL 103 mEq/L 04/04/2018 Metabolic Ord15 CO2 27.0 mEq/L 04/04/2018 Metabolic Ord15 GLUCOSE 129 mg/dL 04/04/2018 Metabolic Ord15 BUN 26 mg/dL 04/04/2018 Metabolic Ord15 Creat 1.3 mg/dL 04/04/2018 Metabolic Ord15 B/C Ratio 19.4 Ratio 04/04/2018 Metabolic Ord15 eGFR 56 ml/min/1.73m2 04/04/2018 Metabolic Ord15 Osmo 284 mOsmo 04/04/2018 Metabolic Ord15 ANION GAP 14 04/04/2018 Metabolic Ord15 CALCIUM 8.8 mg/dL 04/04/2018 Pt Hby6315 PT 21.1 seconds 03/08/2018 Pt Evc0951 INR 1.8 03/08/2018 Pt Iqa6948 Low Intensity - 1.5-2.0 03/08/2018 Pt Cmx4639 Mod intensity - 2.0-3.0 03/08/2018 Pt Phk7948 Hi intensity - 3.0-4.0 03/08/2018 Pt Ugc4860 PT 37.2 seconds 02/23/2018 Pt Cig5421 INR 3.7 02/23/2018 Pt Ywq5992 Low Intensity - 1.5-2.0 02/23/2018 Pt Koo9311 Mod intensity - 2.0-3.0 02/23/2018 Pt Ptj4527 Hi intensity - 3.0-4.0 02/23/2018 Pt Vhn2806 PT 33.4 seconds 12/28/2017 Pt Muc7587 INR 3.2 12/28/2017 Pt Thy7705 Low Intensity - 1.5-2.0 12/28/2017 Pt Bpu1006 Mod intensity - 2.0-3.0 12/28/2017 Pt Tde5586 Hi intensity - 3.0-4.0 12/28/2017 Pt Kuk5444 PT 30.2 seconds 10/06/2017 Pt Tcp7234 INR 2.9 10/06/2017 Pt Yoe2428 Low Intensity - 1.5-2.0 10/06/2017 Pt Ccr7872 Mod intensity - 2.0-3.0 10/06/2017 Pt Dcy0161 Hi intensity - 3.0-4.0 10/06/2017 Pt Ahu8542 PT 33.3 seconds 06/23/2017 Pt Uqr3786 INR 3.2 06/23/2017 Pt Qrw1688 Low Intensity - 1.5-2.0 06/23/2017 Pt Jtm1289 Mod intensity - 2.0-3.0 06/23/2017 Pt Kjv3682 Hi intensity - 3.0-4.0 06/23/2017 C-Reactive Protein Qnt Crqnt CRP 0.2 mg/dl 02/24/2017 Pt Txx8493 PT 31.7 seconds 02/24/2017 Pt Xhw6541 INR 3.3 02/24/2017 Pt Mvc7029 Low Intensity - 1.5-2.0 02/24/2017 Pt Hlw6770 Mod intensity - 2.0-3.0 02/24/2017 Pt Toi6477 Hi intensity - 3.0-4.0 02/24/2017 Tsh Ord6 hTSH II 0.86 uIU/mL 02/24/2017 Comp Metabolic Kch887 NA 139 mEq/L 02/24/2017 Comp Metabolic Zwp294 K 3.9 mEq/L 02/24/2017 Comp Metabolic Cua148 CL 105 mEq/L 02/24/2017 Comp Metabolic Jng931 CO2 27.0 mEq/L 02/24/2017 Comp Metabolic Nnp877 ANION GAP 11 02/24/2017 Comp Metabolic Pmt063 GLUCOSE 93 mg/dL 02/24/2017 Comp Metabolic Eaq477 Creat 1.1 mg/dL 02/24/2017 Comp Metabolic Cxo058 eGFR 73 ml/min/1.73m2 02/24/2017 Comp Metabolic Mdr056 BUN 14 mg/dL 02/24/2017 Comp Metabolic Nei540 B/C Ratio 13.1 Ratio 02/24/2017 Comp Metabolic Ejj616 CALCIUM 8.4 mg/dL 02/24/2017 Comp Metabolic Bmj103 ALK PHOS 89 U/L 02/24/2017 Comp Metabolic Tdx398 AST(SGOT) 18 U/L 02/24/2017 Comp Metabolic Dzf282 ALT(SGPT) 21 U/L 02/24/2017 Comp Metabolic Fnt418 BILI T 0.5 mg/dL 02/24/2017 Comp Metabolic Gaz706 ALBUMIN 3.8 g/dL 02/24/2017 Comp Metabolic Ejb561 TPRO 6.5 g/dL 02/24/2017 Comp Metabolic Ipy049 GLOB 2.7 g/dL 02/24/2017 Comp Metabolic Kiq842 A/G Ratio 1.4 Ratio 02/24/2017 Comp Metabolic Tgd826 Osmo 278 mOsmo 02/24/2017 Cbc With Differential Ord2 WBC 8.43 K/ul 02/24/2017 Cbc With Differential Ord2 RBC 5.17 M/ul 02/24/2017 Cbc With Differential Ord2 HGB 15.3 g/dl 02/24/2017 Cbc With Differential Ord2 HCT 43.7 % 02/24/2017 Cbc With Differential Ord2 Neut% 55.5 % 02/24/2017 Cbc With Differential Ord2 Lymph% 31.1 % 02/24/2017 Cbc With Differential Ord2 MCV 84.5 fl 02/24/2017 Cbc With Differential Ord2 MCH 29.6 pg 02/24/2017 Cbc With Differential Ord2 Bosque% 9.7 % 02/24/2017 Cbc With Differential Ord2 MCHC 35.0 pg 02/24/2017 Cbc With Differential Ord2 Eos% 2.6 % 02/24/2017 Cbc With Differential Ord2 Baso% 1.1 % 02/24/2017 Cbc With Differential Ord2 PLT 212 K/ul 02/24/2017 Cbc With Differential Ord2 RDW 13.9 % 02/24/2017 Cbc With Differential Ord2 Neut ABS# 4.68 K/ul 02/24/2017 Cbc With Differential Ord2 Lymph ABS# 2.62 K/ul 02/24/2017 Cbc With Differential Ord2 [place] ABS# 0.8 K/ul 02/24/2017 Cbc With Differential Ord2 Eos ABS# 0.2 K/ul 02/24/2017 Cbc With Differential Ord2 Baso ABS# 0.1 K/ul 02/24/2017 Sed Rate Ord21 ESR 25 mm/hr 02/24/2017 Pt Gki2689 PT 22.4 seconds 12/28/2016 Pt Dfz3841 INR 2.1 12/28/2016 Pt Ies4822 Low Intensity - 1.5-2.0 12/28/2016 Pt Vnj0948 Mod intensity - 2.0-3.0 12/28/2016 Pt Ybf1473 Hi intensity - 3.0-4.0 12/28/2016 Pt Llf8158 PT 30.2 seconds 11/26/2016 Pt Hyc3310 INR 3.1 11/26/2016 Pt Muz5645 Low Intensity - 1.5-2.0 11/26/2016 Pt Nbq1147 Mod intensity - 2.0-3.0 11/26/2016 Pt Ahf3483 Hi intensity - 3.0-4.0 11/26/2016 Pt Ard8825 PT 34.3 seconds 11/20/2016 Pt Vmm3909 INR 3.7 11/20/2016 Pt Dza9997 Low Intensity - 1.5-2.0 11/20/2016 Pt Dlx2412 Mod intensity - 2.0-3.0 11/20/2016 Pt Tyi4175 Hi intensity - 3.0-4.0 11/20/2016 Lipid Ord30 CHOL 236 mg/dL 07/14/2016 Lipid Ord30 HDL 36.0 mg/dl 07/14/2016 Lipid Ord30 TRIG 406 mg/dL 07/14/2016 Lipid Ord30 LDL Unable to calculate Due to elevated triglycerides mg/dL 07/14/2016 Lipid Ord30 C/HDL 6.6 Ratio 07/14/2016 Pt Vuk7564 PT 29.0 seconds 07/14/2016 Pt Ppw2553 INR 2.9 07/14/2016 Pt Egq4787 Low Intensity - 1.5-2.0 07/14/2016 Pt Odo9092 Mod intensity - 2.0-3.0 07/14/2016 Pt Okk1712 Hi intensity - 3.0-4.0 07/14/2016 Pt Dji4093 PT 30.0 seconds 03/02/2016 Pt Zzt2018 INR 3.1 03/02/2016 Pt Xxn8884 Low Intensity - 1.5-2.0 03/02/2016 Pt Cfv0014 Mod intensity - 2.0-3.0 03/02/2016 Pt Vix4437 Hi intensity - 3.0-4.0 03/02/2016 %Hba1C Hii604 % HbA1c 79133-3 6.0 % 03/02/2016 %Hba1C Gay980 Gluc Ave 126 mg/dL 03/02/2016 Tsh Ord6 hTSH II 0.68 uIU/mL 03/02/2016 Comp Metabolic Sbn714 NA 140 mEq/L 03/02/2016 Comp Metabolic Zea595 K 4.1 mEq/L 03/02/2016 Comp Metabolic Tqd686 CL 105 mEq/L 03/02/2016 Comp Metabolic Kdn251 CO2 29.0 mEq/L 03/02/2016 Comp Metabolic Lzk470 ANION GAP 10 03/02/2016 Comp Metabolic Kho509 GLUCOSE 104 mg/dL 03/02/2016 Comp Metabolic Vrv548 Creat 1.0 mg/dL 03/02/2016 Comp Metabolic Vae210 eGFR 77 ml/min/1.73m2 03/02/2016 Comp Metabolic Gph480 BUN 15 mg/dL 03/02/2016 Comp Metabolic Kxc380 B/C Ratio 14.7 Ratio 03/02/2016 Comp Metabolic Kuh962 CALCIUM 8.9 mg/dL 03/02/2016 Comp Metabolic Mqx217 ALK PHOS 84 U/L 03/02/2016 Comp Metabolic Qxf604 AST(SGOT) 16 U/L 03/02/2016 Comp Metabolic Mce110 ALT(SGPT) 17 U/L 03/02/2016 Comp Metabolic Ddo492 BILI T 0.5 mg/dL 03/02/2016 Comp Metabolic Vso032 ALBUMIN 4.0 g/dL 03/02/2016 Comp Metabolic Pox768 TPRO 6.6 g/dL 03/02/2016 Comp Metabolic Tup387 GLOB 2.6 g/dL 03/02/2016 Comp Metabolic Yqf828 A/G Ratio 1.5 Ratio 03/02/2016 Comp Metabolic Gyg769 Osmo 281 mOsmo 03/02/2016 Cbc With Differential [...] 28.4 % 03/02/2016 Cbc With Differential Ord2 Bosque% 8.1 % 03/02/2016 Cbc With Differential Ord2 MCH 29.3 pg 03/02/2016 Cbc With Differential Ord2 MCHC 34.0 pg 03/02/2016 Cbc With Differential Ord2 Eos% 1.9 % 03/02/2016 Cbc With Differential Ord2 Baso% 1.2 % 03/02/2016 Cbc With Differential Ord2 PLT 232 K/ul 03/02/2016 Cbc With Differential Ord2 RDW 14.0 % 03/02/2016 Cbc With Differential Ord2 Neut ABS# 4.86 K/ul 03/02/2016 Cbc With Differential Ord2 Lymph ABS# 2.29 K/ul 03/02/2016 Cbc With Differential Ord2 Bosque ABS# 0.7 K/ul 03/02/2016 Cbc With Differential Ord2 Eos ABS# 0.2 K/ul 03/02/2016 Cbc With Differential Ord2 Baso ABS# 0.1 K/ul 03/02/2016 Cbc With Differential Ord2 WBC 5.13 K/ul 10/31/2015 Cbc With Differential Ord2 RBC 5.65 M/ul 10/31/2015 Cbc With Differential Ord2 HGB 16.3 g/dl 10/31/2015 Cbc With Differential Ord2 HCT 48.0 % 10/31/2015 Cbc With Differential Ord2 Neut% 59.8 % 10/31/2015 Cbc With Differential Ord2 MCV 85.0 fl 10/31/2015 Cbc With Differential Ord2 Lymph% 25.5 % 10/31/2015 Cbc With Differential Ord2 Bosque% 12.7 % 10/31/2015 Cbc With Differential Ord2 [...] 1.31 K/ul 10/31/2015 Cbc With Differential Ord2 [place] ABS# 0.7 K/ul 10/31/2015 Cbc With Differential Ord2 Eos ABS# 0.1 K/ul 10/31/2015 Cbc With Differential Ord2 Baso ABS# 0.0 K/ul 10/31/2015 Cbc With Differential Ord2 New Analyzer Notice Please note new ref ranges starting 10-09-2015 due to implemntation of new five part differential hematolgy analyzer. 10/31/2015 Tsh Ord6 hTSH II 0.88 uIU/mL 10/31/2015 Comp Metabolic Ogo240 NA 135 mEq/L 10/31/2015 Comp Metabolic Res397 K 4.2 mEq/L 10/31/2015 Comp Metabolic Goj911 CL 99 mEq/L 10/31/2015 Comp Metabolic Dtw606 CO2 28.0 mEq/L 10/31/2015 Comp Metabolic Yyf534 ANION GAP 12 10/31/2015 Comp Metabolic Nar345 GLUCOSE 107 mg/dL 10/31/2015 Comp Metabolic Yyg244 Creat 1.2 mg/dL 10/31/2015 Comp Metabolic Xpe539 eGFR 63 ml/min/1.73m2 10/31/2015 Comp Metabolic Gmn788 BUN 12 mg/dL 10/31/2015 Comp Metabolic Gtw047 B/C Ratio 9.9 Ratio 10/31/2015 Comp Metabolic Ija837 CALCIUM 8.4 mg/dL 10/31/2015 Comp Metabolic Vxu851 ALK PHOS 134 U/L 10/31/2015 Comp Metabolic Uyn145 AST(SGOT) 20 U/L 10/31/2015 Comp Metabolic Uea059 ALT(SGPT) 16 U/L 10/31/2015 Comp Metabolic Sqk612 BILI T 0.4 mg/dL 10/31/2015 Comp Metabolic Qeb321 ALBUMIN 4.2 g/dL 10/31/2015 Comp Metabolic Yho505 TPRO 7.2 g/dL 10/31/2015 Comp Metabolic Rrs516 GLOB 3.1 g/dL 10/31/2015 Comp Metabolic Ucd651 A/G Ratio 1.4 Ratio 10/31/2015 Comp Metabolic Vil930 Osmo 270 mOsmo 10/31/2015 Pt [id number] PT 26.4 seconds 10/31/2015 Pt Ljc4130 INR 2.5 10/31/2015 Pt Xyz1080 Low Intensity - 1.5-2.0 10/31/2015 Pt Lmn2700 Mod intensity - 2.0-3.0 10/31/2015 Pt Rqv7625 Hi intensity - 3.0-4.0 10/31/2015 %Hba1C Rlc529 % HbA1c 90173-3 6.1 % 10/31/2015 %Hba1C Owi966 Gluc Ave 128 mg/dL 10/31/2015 Total Psa Ord10 PSA 2.66 ng/mL 10/31/2015 Lipid Ord30 CHOL 184 mg/dL 10/31/2015 Lipid Ord30 HDL 29.0 mg/dl 10/31/2015 Lipid Ord30 TRIG 283 mg/dL 10/31/2015 Lipid Ord30 LDL 98 mg/dL 10/31/2015 Lipid Ord30 C/HDL 6.3 Ratio 10/31/2015 TSH [id number] TSH 0.819 uIU/ML 11/10/2013 CHEM 14 7678190 AST 17 U/L 11/10/2013 CHEM 14 7876064 ALT 17 IU/L 11/10/2013 CHEM 14 2708312 BUN 15 MG/DL 11/10/2013 CHEM 14 4108787 ALBUMIN 4.3 GM/DL 11/10/2013 CHEM 14 9473599 CHLORIDE 103 MMOL/L 11/10/2013 CHEM 14 1083752 BILI TOT 0.6 MG/DL 11/10/2013 CHEM 14 3745114 ALK PHOS 104 U/L 11/10/2013 CHEM 14 0149398 SODIUM 137 MMOL/L 11/10/2013 CHEM 14 0133170 CREATININE 1.08 MG/DL 11/10/2013 CHEM 14 6087676 CALCIUM 8.9 MG/DL 11/10/2013 CHEM 14 1939360 POTASSIUM 4.0 MMOL/L 11/10/2013 CHEM 14 5043202 PROT TOT 7.0 GM/DL 11/10/2013 CHEM 14 1762358 GLUCOSE 84 MG/DL 11/10/2013 CHEM 14 7004086 BICARB 28 MMOL/L 11/10/2013 CHEM 14 7497446 ANION GAP 6 MEQ/L 11/10/2013 CBC 6660592 WBC 8.4 10e9/L 11/10/2013 CBC [id number] RBC 5.24 10e12/L 11/10/2013 CBC [id number] HGB 15.4 g/dL 11/10/2013 CBC [id number] HCT DET 43.8 % 11/10/2013 CBC [id number] MCV 83.6 fL 11/10/2013 CBC [id number] MCH 29.4 pg 11/10/2013 CBC [id number] MCHC 35.2 g/dL 11/10/2013 CBC [id number] PLT 250 10e9/L 11/10/2013 CBC [id number] MPV 11.1 fL 11/10/2013 CBC [id number] OANH % 58.1 % 11/10/2013 CBC [id number] LY % 28.5 % 11/10/2013 CBC [id number] MON % 10.2 % 11/10/2013 CBC [id number] EOS % 2.1 % 11/10/2013 CBC [id number] BASO % 1.1 % 11/10/2013 CBC [id number] RDW 13.3 % 11/10/2013 CBC [id number] ABS OANH 4.88 10e9/L 11/10/2013 CBC [id number] ABS LYMPH 2.39 10e9/L 11/10/2013 CBC [id number] ABS MONO 0.86 10e9/L 11/10/2013 CBC [id number] ABS EOS 0.18 10e9/L 11/10/2013 CBC [id number] ABS BASO 0.09 10e9/L 11/10/2013 CBC [id number] RDW-SD 40.7 fL 11/10/2013 GFR CALC [id number] GFR AA >60 ML/MIN 11/10/2013 GFR CALC [id number] GFR NON-AA >60 ML/MIN 11/10/2013 PT/MC [id number] PRO TIME 24.5 SEC 11/10/2013 PT/MC [id number] INR MCMC 2.3 11/10/2013 Review of Systems System Result Effective Dates Constitutional recent illness 04/15/2018 Constitutional No chills 04/15/2018 Constitutional No diaphoresis 04/15/2018 Constitutional No fever 04/15/2018 Constitutional fatigue 04/15/2018 Constitutional malaise 04/15/2018 Eyes No eye erythema 04/15/2018 Ears/Nose/Throat/Neck No nasal discharge 04/15/2018 Ears/Nose/Throat/Neck No nasal allergies 04/15/2018 Cardiovascular No chest pain/pressure Cardiovascular No dyspnea 04/15/2018 Cardiovascular No near-syncope/dizziness 04/15/2018 Cardiovascular No palpitations 2017 Cardiovascular fatigue 04/15/2018 Respiratory No cough 04/15/2018 Respiratory No chest congestion 2017 Gastrointestinal No abdominal pain 2017 Gastrointestinal No vomiting 04/15/2018 Gastrointestinal No nausea 04/15/2018 Gastrointestinal No constipation 2017 Gastrointestinal No diarrhea 04/15/2018 Genitourinary/Nephrology No dysuria 04/15 Musculoskeletal arthralgia(s) 04/15/2018 Dermatologic No rash 04/15/2018 Neurologic No alteration of consciousness 04/15/2018 Neurologic No mental status change 2017 Neurologic No headache 04/15/2018 Neurologic No gait abnormality 2017 Neurologic No aphasia 04/15/2018 Neurologic dizziness 04/15/2018 Neurologic No dyskinesia or tremor 2017 Neurologic paresthesia 04/15/2018 Constitutional No recent illness 2017 Constitutional No chills 12/01/2017 Constitutional No diaphoresis 12/01/2017 Constitutional fatigue 12/01/2017 Constitutional No fever 12/01/2017 Constitutional No insomnia 12/01/2017 Constitutional No malaise 12/01/2017 Eyes No eye discharge 12/01/2017 Eyes No eye erythema 12/01/2017 Ears/Nose/Throat/Neck No nasal allergies 12/01/2017 Ears/Nose/Throat/Neck No nasal discharge 12/01/2017 Cardiovascular No dyspnea 12/01/2017 Respiratory No chest congestion 2017 Respiratory No cough 12/01/2017 Gastrointestinal No abdominal pain 2017 Gastrointestinal No constipation 2017 Gastrointestinal No diarrhea 12/01/2017 Gastrointestinal No nausea 12/01/2017 Gastrointestinal No vomiting 12/01/2017 Genitourinary/Nephrology No dysuria 12/01 Musculoskeletal joint complaint 2017 Dermatologic No rash 12/01/2017 Dermatologic No sores 12/01/2017 Neurologic No alteration of consciousness 12/01/2017 Cardiovascular No chest pain/pressure 03/2018 Respiratory dyspnea on exertion 2017 Respiratory No dyspnea 12/01/2017 Genitourinary/Nephrology urinary retention/hesitancy 12/01/2017 Genitourinary/Nephrology nocturia 2017 Neurologic No mental status change 2017 Constitutional recent illness 10/06/2017 Constitutional No chills [...] Result Effective Dates Notes Full Exam - General 1994 Constitutional general appearance Overall: well developed 04/15/2018 None Full Exam - General 1994 Constitutional general appearance Overall: in no acute distress 04/15/2018 None Full Exam - General 1994 Constitutional general appearance Overall: well nourished 04/15/2018 None Full Exam - General 1994 Eyes conjunctiva /eyelids Overall: eyelids normal 04/15/2018 None Full Exam - General 1994 Eyes conjunctiva /eyelids Overall: cornea clear 04/15/2018 None Full Exam - General 1994 Eyes conjunctiva /eyelids Overall: conjunctiva clear 04/15/2018 None Full Exam - General 1994 Eyes pupils and irises Overall: pupils equal, round, reactive to light and accomodation 04/15/2018 None Full Exam - General 1994 Ears/Nose/Throat otoscopic exam Overall: tympanic membranes clear 04/15/2018 None Full Exam - General 1994 Ears/Nose/Throat otoscopic exam Overall: external auditory canals clear 04/15/2018 None Full Exam - General 1994 Ears/Nose/Throat lips/teeth/gingiva Overall: benign lips 04/15/2018 None Full Exam - General 1994 Ears/Nose/Throat oral cavity/pharynx/larynx Overall: oral mucosa clear 04/15/2018 None Full Exam - General 1994 Ears/Nose/Throat oral cavity/pharynx/larynx Overall: oropharyngeal mucosa clear 04/15/2018 None Full Exam - General 1994 Respiratory respiratory effort/rhythm Overall: no retractions 04/15/2018 None Full Exam - General 1994 Respiratory respiratory effort/rhythm Overall: normal rate 04/15/2018 None Full Exam - General 1994 Respiratory auscultation Overall: breath sounds clear bilaterally 04/15/2018 None Full Exam - General 1994 Cardiovascular auscultation of heart Overall: regular rate 04/15/2018 None Full Exam - General 1994 Cardiovascular auscultation of heart Overall: normal heart sounds 04/15/2018 None Full Exam - General 1994 Cardiovascular extremities Overall: no clubbing 04/15/2018 None Full Exam - General 1994 Cardiovascular inspection of carotid pulses Overall: strong, bilaterally equal, no bruits 04/15/2018 None Full Exam - General 1994 Abdomen abdominal exam Overall: normal bowel sounds 04/15/2018 None Full Exam - General 1994 Abdomen abdominal exam Overall: no tenderness 04/15/2018 None Full Exam - General 1994 Musculoskeletal head and neck Overall: head atraumatic 04/15/2018 None Full Exam - General 1994 Musculoskeletal head and neck Cervical Spine: tender 04/15/2018 None Full Exam - General 1994 Musculoskeletal gait and station Overall: normal station 04/15/2018 None Full Exam - General 1994 Musculoskeletal gait and station Overall: normal gait 04/15/2018 None Full Exam - General 1994 Musculoskeletal spine, ribs and pelvis Spine: tender @ cervical spine 04/15/2018 None Full Exam - General 1994 Musculoskeletal spine, ribs and pelvis Spine: tender @ thoracic spine 04/15/2018 None Full Exam - General 1994 Neurologic cranial nerves Overall: crainial nerves 2 - 12 grossly intact 04/15/2018 None Full Exam - General 1994 Neurologic gait Overall: no ataxia, no unsteadiness 04/15/2018 None Full Exam - General 1994 Psychiatric orientation/consciousness Overall: oriented to person, place and time 04/15/2018 None Full Exam - General 1994 Psychiatric mood and affect Overall: normal mood and affect 04/15/2018 None Full Exam - General 1994 Psychiatric appearance Overall: well-groomed, good eye contact 04/15/2018 None Full Exam - General 1994 Constitutional general appearance Overall: well developed 12/01/2017 None Full Exam - General 1994 Constitutional general appearance Overall: in no acute distress 12/01/2017 None Full Exam - General 1994 Constitutional general appearance Overall: well nourished 12/01/2017 None Full Exam - General 1994 Eyes pupils and irises Overall: pupils equal, round, reactive to light and accomodation 12/01/2017 None Full Exam - General 1994 Ears/Nose/Throat otoscopic exam Overall: external auditory canals clear 12/01/2017 None Full Exam - General 1994 Ears/Nose/Throat otoscopic exam Overall: tympanic membranes clear 12/01/2017 None Full Exam - General 1994 Ears/Nose/Throat oral cavity/pharynx/larynx Overall: oral mucosa clear 12/01/2017 None Full Exam - General 1994 Ears/Nose/Throat oral cavity/pharynx/larynx Overall: oropharyngeal mucosa clear 12/01/2017 None Full Exam - General 1994 Respiratory auscultation Overall: breath sounds clear bilaterally 12/01/2017 None Full Exam - General 1994 Respiratory respiratory effort/rhythm Overall: no retractions 12/01/2017 None Full Exam - General 1994 Respiratory respiratory effort/rhythm Overall: normal rate 12/01/2017 None Full Exam - General 1994 Cardiovascular extremities Overall: no clubbing 12/01/2017 None Full Exam - General 1994 Cardiovascular auscultation of heart Overall: regular rate 12/01/2017 None Full Exam - General 1994 Cardiovascular auscultation of heart Overall: normal heart sounds 12/01/2017 None Full Exam - General 1994 Abdomen abdominal exam Overall: no tenderness 12/01/2017 None Full Exam - General 1994 Abdomen abdominal exam Overall: normal bowel sounds 12/01/2017 None Full Exam - General 1994 Musculoskeletal head and neck Overall: head atraumatic 12/01/2017 None Full Exam - General 1994 Psychiatric orientation/consciousness Overall: oriented to person, place and time 12/01/2017 None Full Exam - General 1994 Psychiatric mood and affect Overall: normal mood and affect 12/01/2017 None Full Exam - General 1994 Psychiatric mood and affect Mood: happy 12/01/2017 None Full Exam - General 1994 Eyes conjunctiva /eyelids Overall: eyelids normal 12/01/2017 None Full Exam - General 1994 Eyes conjunctiva /eyelids Overall: cornea clear 12/01/2017 None Full Exam - General 1994 Eyes conjunctiva /eyelids Overall: conjunctiva clear 12/01/2017 None Full Exam - General 1994 Ears/Nose/Throat lips/teeth/gingiva Overall: benign lips 12/01/2017 None Full Exam - General 1994 Musculoskeletal gait and station Overall: normal station 12/01/2017 None Full Exam - General 1994 Musculoskeletal gait and station Overall: normal gait 12/01/2017 None Full Exam - General 1994 Neurologic cranial nerves Overall: crainial nerves 2 - 12 grossly intact 12/01/2017 None Full Exam - General 1994 Psychiatric appearance Overall: well-groomed, good eye contact 12/01/2017 None Full Exam - ENT Constitutional general [...] clear 05/10/2013 None Full Exam - General 1995 Ears/Nose/Throat oral cavity/pharynx/larynx Overall: no masses 05/10/2013 [...] appearance 05/10/2013 None Full Exam - General 1994 [...] 1995 Ears/Nose/Throat oral cavity/pharynx/larynx Overall: no masses 02/23/2013 [...] appearance 02/23/2013 None Full Exam - General 1994 [...] 1994 Ears/Nose/Throat oral cavity/pharynx/larynx Overall: no masses 01/12/2013 [...] clubbing 01/12/2013 None Full Exam - General 1995 Cardiovascular auscultation of heart Overall: regular rate 01/12/2013 None Full Exam - General 1995 Cardiovascular auscultation of heart Overall: normal heart sounds 01/12/2013 None Full Exam - General 1995 Musculoskeletal lower extremity Inspection - thigh: normal appearance 01/12/2013 None Full Exam - General 1995 Musculoskeletal lower extremity Palpation - thigh: tenderness 01/12/2013 mildly tender over greater trochanteric region and with internal rotation of hip on left Full Exam - General 1995 Constitutional general appearance Overall: well developed 11/30/2012 None Full Exam - General 1995 Constitutional general appearance Overall: in no acute distress 11/30/2012 None Full Exam - General 1995 Constitutional general appearance Overall: well nourished 11/30/2012 None Full Exam - General 1994 Eyes pupils and irises Overall: pupils equal, round, reactive to light and accomodation 11/30/2012 None Full Exam - General 1995 [...] 1995 Ears/Nose/Throat oral cavity/pharynx/larynx Overall: no masses 11/30/2012 None Full Exam - General 1994 Respiratory auscultation Overall: breath sounds clear bilaterally 11/30/2012 None Full Exam - General 1994 Respiratory respiratory effort/rhythm Overall: no retractions 11/30/2012 None Full Exam - General 1994 Respiratory respiratory effort/rhythm Overall: normal rate 11/30/2012 None Full Exam - General 1994 Cardiovascular extremities Overall: no clubbing 11/30/2012 None Full Exam - General 1994 Cardiovascular auscultation of heart Overall: regular rate 11/30/2012 None Full Exam - General 1994 Cardiovascular auscultation of heart Overall: normal heart sounds 11/30/2012 None Full Exam - General 1994 Musculoskeletal lower extremity Inspection - thigh: normal appearance 11/30/2012 None Full Exam - General 1994 Musculoskeletal lower extremity Palpation - thigh: tenderness 11/30/2012 mildly tender over greater trochanteric region and with internal rotation of hip on left Full Exam - General 1995 Musculoskeletal head and neck Overall: head atraumatic 11/30/2012 None Full Exam - General 1995 Musculoskeletal head and neck Overall: cervical spine benign 11/30/2012 None Full Exam - General 1995 Psychiatric orientation/consciousness Overall: oriented to person, place and time 11/30/2012 None Full Exam - General 1994 Psychiatric mood and affect Overall: normal mood and affect 11/30/2012 None Full Exam - General 1994 Psychiatric mood and affect Mood: happy 11/30/2012 None Full Exam - General 1995 Constitutional general appearance Overall: well nourished 11/09/2012 None Full Exam - General 1995 Constitutional general appearance Overall: well developed 11/09/2012 None Full Exam - General 1994 [...] rate 11/09/2012 None Full Exam - General 1995 Cardiovascular auscultation of heart Overall: normal heart sounds 11/09/2012 None Full Exam - General 1995 Cardiovascular extremities Overall: no clubbing 11/09/2012 None Full Exam - General 1994 Abdomen abdominal exam Overall: no tenderness 11/09/2012 None Full Exam - General 1995 Abdomen abdominal exam Overall: normal bowel sounds 11/09/2012 None Full Exam - General 1995 Lymphatic neck nodes Overall: anterior cervical chain benign 11/09/2012 None Full Exam - General 1995 Lymphatic neck nodes Overall: posterior cervical chain benign 11/09/2012 None Full Exam - General 1995 Musculoskeletal head and neck Overall: cervical spine benign 11/09/2012 None Full Exam - General 1995 Musculoskeletal [...] Procedure Codes Date THER/PROPH/DIAG INJ SC/IM CPT-4: 43144 10/06/2017 TRIAMCINOLONE ACET INJ NOS CPT-4: J3301 10/06/2017 THER/PROPH/DIAG INJ SC/IM CPT-4: 07046 10/31/2015 TRIAMCINOLONE ACET INJ NOS CPT-4: J3301 10/31/2015 ROUTINE VENIPUNCTURE CPT-4: 47458 11/10/2013 PRESCRIP TRANSMIT VIA ERX SY CPT-4: G8553 02/23/2013 PRESCRIP TRANSMIT VIA ERX SY CPT-4: G8553 11/30/2012 PRESCRIP TRANSMIT VIA ERX SY CPT-4: G8553 11/09/2012 Vital Signs Date Vital 04/15/2018 Blood Pressure 1: 150/88 Code : 8480-6 BMI: 28.1 Code : 76349-9 Heart Rate 1 : 84 bpm Height: 5'10" SpO2: 98% Weight: 196 lbs 12/01/2017 Blood Pressure 1: 154/78 Code : 8480-6 BMI: 28.4 Code : 92553-3 Heart Rate 1 : 87 bpm Height: 5'10" SpO2: 98% Weight: 198 lbs 10/06/2017 Blood Pressure 1: 136/74 Code : 8480-6 BMI: 38.0 Code : 17771-1 Heart Rate 1 : 75 bpm Height: 5' SpO2: 95% Temperature: 36.8 (C) / 98.2 (F) Weight: 194 lbs 8 oz 06/23/2017 Blood Pressure 1: 152/82 Code : 8480-6 BMI: 28.3 Code : 27860-0 Heart Rate 1 : 58 bpm Height: 5'10" SpO2: 96% Weight: 197 lbs 04/14/2017 Blood Pressure 1: 146/84 Code : 8480-6 BMI: 27.5 Code : 32053-2 Heart Rate 1 : 69 bpm Height: 5'10" SpO2: 95% Weight: 192 lbs 02/24/2017 Blood Pressure 1: 146/60 Code : 8480-6 BMI: 27.4 Code : 67580-2 Heart Rate 1 : 61 bpm Height: 5'10" SpO2: 97% Weight: 191 lbs 05/07/2016 Blood Pressure 1: 146/66 Code : 8480-6 BMI: 26.3 Code : 20132-2 Heart Rate 1 : 69 bpm Height: 5'10" SpO2: 97% Weight: 183 lbs 03/02/2016 Blood Pressure 1: 190/108 Code: 8480-6 Blood Pressure 1: 170/100 Code: 8480-6 BMI: 26.5 Code: 58554-7 Heart Rate 1: 76 bpm Height: 5'10" SpO2: 98% Weight: 185 lbs 10/31/2015 Blood Pressure 1: 126/86 Code : 8480-6 Blood Pressure 1: 142/90 Code: 8480-6 BMI: 26.8 Code: 87970-5 Heart Rate 1: 99 bpm Height: 5'10" SpO2: 95% Temperature: 37.0 (C) / 98.6 (F) Weight: 187 lbs 01/25/2014 Blood Pressure 1: 180/90 Code : 8480-6 BMI: 26.3 Code : 03583-5 Heart Rate 1 : 76 bpm Height: [...] Code : 8480-6 BMI: 25.7 Code : 96720-3 Heart Rate 1 : 84 bpm Height: 5'10" Weight: 179 lbs 02/23/2013 Blood Pressure 1: 138/90 Code : 8480-6 BMI: 27.0 Code : 22851-9 Heart Rate 1 : 88 bpm Height: 5'10" Temperature: 37.0 (C) / 98.6 (F) Weight: 188 lbs 01/12/2013 Blood Pressure 1: 136/78 Code : 8480-6 BMI: 26.7 Code : 90690-4 Heart Rate 1 : 96 bpm Height: 5'10" Weight: 186 lbs 11/30/2012 Blood Pressure 1: 170/90 Code : 8480-6 BMI: 26.8 Code : 94654-0 Heart Rate 1 : 80 bpm Height: 5'10" Weight: 187 lbs 11/09/2012 Blood Pressure 1: 178/84 Code : 8480-6 BMI: 26.5 Code : 70031-4 Heart Rate 1 : 86 bpm Height: 5'10" Respiratory Rate: 16 bpm Weight: 185 lbs Functional Status No Functional Status data History of Present Illness Symptom Name Status Result Effective Date Notes Hospital Follow Up _ Other: left sided numbness 04/15/2018 None Hospital Follow Up Quality intermittent 04/15/2018 None Hospital Follow Up Pertinent Findings Denies fever 04/15/2018 None Hospital Follow Up Pertinent Findings Denies other neurologic symptoms 04/15/2018 None well man exam (65+ years) Control none 12/01/2017 None well man exam (65+ years) Nutrition and Exercise normal weight 12/01/2017 None well man exam (65+ years) Nutrition and Exercise balanced nutrition 12/01/2017 None well man exam (65+ years) Nutrition and Exercise regular diet 12/01/2017 None cough Quality acute None cough Location in [...] recurrent 05/10/2013 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 PATIENT, LEVEL III Diagnosis: Paresthesia of skin[ICD10: R20.2] Diagnosis: Cervicalgia[ICD10: M54.2] Diagnosis: Essential (primary) hypertension[ICD10: I10] [facility] CPT-4: 25434 04/15/2018 ([id number]) PER PM REEVAL EST PAT 65+ YR Diagnosis: Benign prostatic hyperplasia with lower urinary tract symptoms[ICD10 : N40.1] Diagnosis: Essential (primary) hypertension[ICD10: I10] [facility] CPT-4: 92099 12/01/2017 [id number] EST. PATIENT, LEVEL IV Diagnosis: Other acute sinusitis[ICD10: J01.80] Diagnosis: Other allergic rhinitis[ICD10: J30.89] Diagnosis: Other residential (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[ICD10: Z79.899] [facility] CPT-4: 91854 10/06/2017 [id number] EST. PATIENT, LEVEL IV Diagnosis: Gastro-esophageal reflux disease without esophagitis[ICD10: K21.9] Diagnosis: Pain in right elbow[ICD10: M25.521] Diagnosis: Other residential (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[ICD10: Z79.899] Gayle Fajardo MD, [facility] CPT-4: 01677 06/23/2017 67040 EST. PATIENT, LEVEL IV Diagnosis: Other conditions associated with Lyme disease[ICD10: A69.29] Diagnosis: Other dorsalgia[ICD10: M54.89] Gayle Fajardo MD, [facility] CPT-4 : 95649 04/14/2017 [id number] EST. PATIENT, LEVEL IV Diagnosis: Pain in left elbow[ICD10: M25.522] Diagnosis: Pain in right elbow[ICD10: M25.521] Diagnosis: Pain in joints of left hand[ICD10: M25.542] Diagnosis: Pain in joints of right hand[ICD10: M25.541] Diagnosis: Other fatigue[ICD10: R53.83] Diagnosis: Other residential (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[ICD10: Z79.899] Gayle Fajardo MD, [facility] CPT-4: 17522 02/24/2017 ([id number]) 83278 EST. PATIENT, LEVEL III Diagnosis: Essential (primary) hypertension[ICD10: I10] Jennifer Fajardo MD, [facility] CPT-4: 58643 05/07/2016 ([id number]) 75849 EST. PATIENT, LEVEL IV Diagnosis: Essential (primary) hypertension[ICD10: I10] Diagnosis: Impaired fasting glucose[ICD10: R73.01] Diagnosis: Other residential (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[ICD10: Z79.899] Jennifer Fajardo MD, [facility] CPT-4: 20459 03/02/2016 ([id number]) 35127 EST. PATIENT, LEVEL IV Diagnosis: Essential (primary) hypertension[ICD10: I10] Diagnosis: Mixed hyperlipidemia[ICD10: E78.2] Diagnosis: Other residential (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[ICD10: Z79.899] Diagnosis: Impaired fasting glucose[ICD10: R73.01] Diagnosis: Acute recurrent maxillary sinusitis[ICD10: J01.01] Jennifer Fajardo MD, [facility] CPT-4: 05444 10/31/2015 ([id number]) 05014 EST. PATIENT, LEVEL III Diagnosis: CELLULITIS[ICD9: 682.9] Mahnaz Fajardo MD [facility] CPT-4: 09040 01/25/2014 ([id number]) 90742 EST. PATIENT, LEVEL III Diagnosis: Acute maxillary sinusitis[ICD9: 461.0] Diagnosis: Cough[ICD9: 786.2] Mahnaz Fajardo MD [facility] CPT-4: 66652 11/29/2013 ([id number]) 06416 EST. PATIENT, LEVEL III Diagnosis: ESSENTIAL HYPERTENSION[SNOMED: 00142757] Diagnosis: Encounter for long-term (current) use of other high-risk medications[ ICD9: V58.69] Jennifer Fajardo MD [facility] CPT-4: 31885 11/10/2013 ([id number]) 03104 EST. PATIENT, LEVEL IV Diagnosis: ESSENTIAL HYPERTENSION[SNOMED: 24937760] Diagnosis: HYPERLIPIDEMIA[ICD9: 272.4] Mahnaz Fajardo MD [facility] CPT- 4: 92917 05/10/2013 ([id number]) 86706 EST. PATIENT, LEVEL III Diagnosis: Esophageal reflux[ICD9: 530.81] Diagnosis: Sore throat[ICD9: 462] Diagnosis: Allergic rhinitis[ICD9: 477.9] Mahnaz Fajardo MD [facility] CPT- 4: 56546 02/23/2013 ([id number]) 51456 EST. PATIENT, LEVEL III Diagnosis: ESSENTIAL HYPERTENSION[SNOMED: 43123204] Diagnosis: HYPERLIPIDEMIA[ICD9: 272.4] Mahnaz Fajardo MD [facility] CPT- 4: 30715 01/12/2013 ([id number]) 02894 EST. 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] Mahnaz Fajardo MD [facility] CPT-4: 58383 11/30/2012 ([id number]) OFFICE VISIT, NEW - LEVEL 4 Diagnosis: ESSENTIAL HYPERTENSION[SNOMED: 18465764] Diagnosis: Renal artery stenosis[ICD9: 440.1] Diagnosis: Hip pain[ICD9: 719.45] [facility] CPT-4: 48495 11/09/2012 Plan of Care Planned Activity Notes Codes Status Date Care Plan: X-RAY EXAM NECK SPINE 2-3 VW [facility] : 96644-4 Pending 04/19/2018 Visit Plan: Left sided paresthesia, neck pain - normal strength - will order x-ray/MRI and refer or treat as indicated - pt is to notify clinic or go to the ER if symptoms worsen, or with any acute questions or concerns. Hypertension - uncontrolled - the patient's medications [...] pt is to call for acute concerns. 04/15/2018 Appointment: aGyle Morris WPtel: [phone] [id number] (15 min) Moderate 04/15/2018 Patient Education: Patient Medication Summary Completed 04/15/2018 [facility]: [id number] Referral Initiated 12/16/2017 Visit Plan: Hypertension - well controlled - continue with current medications, continue with no added salt diet. Pt has been encouraged to exercise daily. The pt has been advised to call the office if there are any acute concerns about change in blood pressure readings at home. Well Adult - pt was counseled about diet, exercise, and encouraged to follow a heart healthy diet and increase activity level. The patient was instructed to RTC yearly for well adult exams and PRN for acute illnesses. The pt was also instructed to have yearly labs for check of cholesterol, thyroid, chem panel, CBC, and renal functioning. Urinary retention - will refer to Dr. Hdez 12/01/2017 Visit Plan: Well Adult - pt was counseled about diet, exercise, and encouraged to follow a heart healthy diet and increase activity level. The patient was instructed to RTC yearly for well adult exams and PRN for acute illnesses. The pt was also instructed to have yearly labs for check of cholesterol, thyroid, chem panel, CBC, and renal functioning. Urinary retention - will refer to Dr. Hdez 12/01/2017 Visit Plan: Well Adult - pt was counseled about diet, exercise, and encouraged to follow a heart healthy diet and increase activity level. The patient was instructed to RTC yearly for well adult exams and PRN for acute illnesses. The pt was also instructed to have yearly labs for check of cholesterol, thyroid, chem panel, CBC, and renal functioning. Urinary retention - will refer to Dr. Hdez 12/01/2017 Appointment: Gayle Morris WPtel: [phone] [facility] (30 min) Complex 12/01/2017 Patient Education: Patient Medication Summary Completed 12/01/2017 Care Plan: Referral Order SNOMED-CT : [id number] Pending 12/01/2017 Visit Plan: Sinusitis - Pt has acute [...] allergy spray. 10/06/2017 Appointment: Gayle Morris WPtel: [phone] [id number] (30 min) Complex 10/06/2017 Patient Education: Patient Medication Summary Completed 10/06/2017 Care Plan: Pt Approved 10/06/2017 Referral: Kobe Benjamin [address] [facility] Referral Initiated 07/06/2017 Visit Plan: Esophageal Reflux [...] not improve. 06/23/2017 Appointment: Gayle Morris WPtel: [facility] [place] (30 min) Complex 06/23/2017 Patient Education: Patient Medication Summary Completed 06/23/2017 Care Plan: Referral Order SNOMED-CT : [id number] Pending 06/23/2017 Visit Plan: Back pain, lyme [...] Pain Completed 04/14/2017 Appointment: Gayle Morris WPtel: [facility] [place] [facility] [place] (30 min) Complex 04/13/2017 Visit Plan: Joint pain, back pain - will check labs - The pt is to use prn antiinflammatories to manage acute pain. The patient is to call the office if the pain is worsening or does not improve. 02/24/2017 Appointment: Gayle Morris WPtel: [address] [place], [place] [phone] [place] (30 min) Complex 02/24/2017 Patient Education: Patient Medication Summary Completed 02/24/2017 Patient Education: Patient Medication Summary Completed 11/20/2016 Care Plan: Pt Pending 11/20/2016 Appointment: Jennifer Perez WPtel: [address] [place], [place] [phone] [place] (30 min) Complex 11/05/2016 Visit Plan: Hypertension - well controlled - continue with current medications, continue with no added salt diet. Pt has been encouraged to exercise daily. The pt has been advised to call the office if there are any acute concerns about change in blood pressure readings at home. 05/07/2016 Appointment: Jennifer Perez WPtel: [address] [place], [place] [phone] (30 min) [facility] 05/07/2016 Patient Education: Patient Medication Summary Completed [...] 03/02/2016 Care Plan: Referral Order SNOMED-CT : [id number] Pending 03/02/2016 Visit Plan: Hypertension - well [...] of pressure. 01/25/2014 Appointment: Mahnaz Fajardo WPtel: [facility] [place] [facility] Other 01/25/2014 Patient Education: Patient Medication Summary Completed 01/25/2014 Appointment: Mahnaz Fajardo WPtel: [facility] [place] [facility] Sick 11/29/2013 Patient Education: Patient Medication Summary Completed [...] Coumadin-check PT/INR 11/10/2013 Appointment: Jennifer Perez WPtel: [facility] [place] [phone] Follow up 11/10/2013 Patient Education: Patient Medication Summary Completed 11/10/2013 Patient Education: Hypertension Completed 11/10/2013 Appointment: Mahnaz Fajardo WPtel: [facility] [place] [facility] [place] Follow up 11/08/2013 Visit Plan: Hypertension - [...] to medications. 05/10/2013 Appointment: Mahnaz Fajardo WPtel: [phone] [facility] Follow up 05/10/2013 Patient Education: Patient Medication Summary Completed 05/10/2013 Patient Education: Hypertension Completed 05/10/2013 Appointment: Mahnaz Fajardo WPtel: [phone] [facility] Sick 02/24/2013 Visit Plan: Esophageal Reflux - the [...] one month. 01/12/2013 Appointment: Mahnaz Fajardo WPtel: [phone] [facility] Follow up 01/12/2013 Patient Education: Patient Medication Summary Completed 01/12/2013 Patient Education: Hypertension Completed 01/12/2013 Appointment: Mhanaz Fajardo WPtel: [phone] [facility] Follow up 01/11/2013 Visit Plan: Nerve pain [...] to assure normal liver response to medications. [place] red Krill oil twice daily 11/30/2012 Appointment: Mahnaz Fajardo WPtel: [phone] [facility] Follow up 11/30/2012 Patient Education: Patient Medication [...] suspect arthritis. 11/09/2012 Appointment: [phone] [facility] 11/09/2012 Patient Education: Patient Medication Summary Completed 11/09/2012 Patient Education: Hypertension Completed 11/09/2012 Referral: Kobe Benjamin [address] [facility] Referral Initiated Ref[facility] Fernando H[facility]el[facility] [phone] [id number] [facility] Initiated Referral: Opal Reddy Referral Appointment Requested Instructions Comment I would like to check a tick panel for Ethan Spotted Fever - I will give you a script for the blood draw let me know where you get it done so we can look for results. I would like to start doxycycline - I can send augmentin for you to start, but the only treatment for Ethan Spotted Fever is Doxycycline. Massage from [facility] [...] change in blood pressure readings at home. tiger balm over the counter. Joint pain, back pain [...] to assure normal liver response to medications. INCREASE LISINOPRIL TO 20MG TWICE DAILY CONTINUE [...] for INR is between 2.0 and 3.5. Renal artery stenosis - pt to see [...] Zuniga for hip pain - suspect arthritis. [place] red Krill oil twice daily increase the [...] to assure normal liver response to medications. [place] red Krill oil twice daily . Hypertension [...] improvement. Kenalog injection today in the office. will refer to Dr. Benjamin for colonoscopy and EGD [facility] . Esophageal Reflux - the patient [...] change in blood pressure readings at home. Well Adult - pt was counseled about diet, exercise, and encouraged to follow a heart healthy diet and increase activity level. The patient was instructed to RTC yearly for well adult exams and PRN for acute illnesses. The pt was also instructed to have yearly labs for check of cholesterol, thyroid, chem panel, CBC, and renal functioning. Urinary retention - will refer to Dr. Hdez . Well Adult - pt was counseled about diet, exercise, and encouraged to follow a heart healthy diet and increase activity level. The patient was instructed to RTC yearly for well adult exams and PRN for acute illnesses. The pt was also instructed to have yearly labs for check of cholesterol, thyroid, chem panel, CBC, and renal functioning. Urinary retention - will refer to Dr. Hdez . Well Adult - pt was counseled about diet, exercise, and encouraged to follow a heart healthy diet and increase activity level. The patient was instructed to RTC yearly for well adult exams and PRN for acute illnesses. The pt was also instructed to have yearly labs for check of cholesterol, thyroid, chem panel, CBC, and renal functioning. Urinary retention - will refer to Dr. Ketty holliday or bladimir. Esophageal Reflux - the patient [...] home, call in with report of pressure. . Sinusitis - Pt has acute infection [...] spray in the nasal steroid allergy spray. Continue lisinopril 20mg BID for a total of 40mg daily If blood pressures stay in the 150s or above in 1 week add 12.5 mg HCTZ follow up appointment in 2 weeks to see how your blood pressures are and to adjust medications further. . Left sided paresthesia, neck pain - normal strength - will order x-ray/MRI and refer or treat as indicated - pt is to notify clinic or go to the ER if symptoms worsen, or with any acute questions or concerns. Hypertension - uncontrolled - the patient's medications [...] pt is to call for acute concerns. INCREASE LISINOPRIL TO 10MG 2 TABS IN [...] call for acute concerns. Coumadin-check PT/INR . Hypertension - well controlled - continue with current medications, continue with no added salt diet. Pt has been encouraged to exercise daily. The pt has been advised to call the office if there are any acute concerns about change in blood pressure readings at home. Hyperlipidemia - check lipids in one month.
--- OUTSIDE RECORDS SUMMARY | 2018-11-11 10:08 | XMS REPORT | CCD ---
Author Author Mahnaz Fajardo Organization Mahnaz Fajardo MD, [facility] Address [address] [place] [address] Phone Care Team Providers Care Measurement And Sensing Technician Name Role Phone PP Unavailable CCM Unavailable Summary Purpose Interface Exchange Insurance Providers Payer name Policy type / Coverage type Covered green party ID Effective Begin Date Effective End Date [employer] Medicare Part B [id number] 2016 Unknown Family history Mother Diagnosis Age At Onset Stroke Unknown Father Diagnosis Age At Onset Hypertension Unknown Sister Diagnosis Age At Onset Hypertension Unknown Social History Social History Element Codes Description Effective Dates Marital status Unknown 11/09/[address]: 9961765 Former smoker quit 1988 11/09/2012 Allergies, Adverse [...] 477.8 ICD-10: J30.89 Active 10/06/2017 Unknown Other termination clerk (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 ICD-9: V58.69 ICD-10: Z79.899 [...] ICD-9: 477.8 ICD-10: J30.89 10/06/2017 Active Other correction (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 ICD-9: V58.69 ICD-10: Z79.899 [...] Start Date Stop Date Status Fill Instructions Coreg 12.5 mg tablet RxNorm: 680285 TAKE 1 TABLET BY MOUTH TWO TIMES DAILY 09/21/2018 03/19/2019 Active - Ref: [id number] lisinopril 20 mg tablet RxNorm: 287734 1 Tablet(s) PO BID 05/1708/09/2019 Active Augmentin 500 mg-125 mg tablet RxNorm: 949031 1 Tablet(s) PO TID 04/29/2018 05/08/2018 Inactive Diflucan 150 mg tablet RxNorm: 136520 1 Tablet(s) PO daily 11/201705/03/2018 Inactive lisinopril 40 mg tablet RxNorm: 410553 1/2 Tablet(s) PO BID 03/03/2019 Active change from lisinopril 20 BID lisinopril 40 mg tablet RxNorm: 508312 1/2 Tablet(s) PO BID 03/08/2018 Inactive Coreg 12.5 mg tablet RxNorm: 436075 TAKE 1 TABLET BY MOUTH TWO TIMES DAILY 02/23/2018 08/21/2018 Inactive - Ref: [id number] amoxicillin 500 mg capsule RxNorm: 421369 1 Capsule(s) PO TID 10/19/2017 10/28/2017 Inactive amoxicillin 500 mg capsule RxNorm: 209808 1 Capsule(s) PO TID 10/19/2017 10/18/2017 Inactive Kenalog 40 mg/mL suspension for injection RxNorm: 0544730 1 Milliliter(s) Inj 10/06/2017 10/06/2017 Inactive Zithromax Z-[place] 250 mg tablet RxNorm: 810876 1 Tablet(s) PO UD 10/06/2017 02/22/2018 Inactive Flomax 0.4 mg capsule RxNorm: 447370 TAKE 2 CAPSULES BY MOUTH DAILY 09/30/2017 12/23/2018 Active - Ref: [id number] warfarin 3 mg tablet RxNorm: 268210 TAKE 1 TABLET BY MOUTH ON WEDNESDAY , WEDNESDAY , WEDNESDAY,WEDNESDAY, WEDNESDAY THEN 1 AND 1/2 TABLETS BY MOUTH ON WEDNESDAY AND Wednesday09/30/2017 06/21/2019 Active - Ref: [id number] omeprazole 20 mg capsule,delayed release RxNorm: 073705 1 Capsule(s) PO daily 06/23/2017 07/22/2017 Inactive lisinopril 20 mg tablet RxNorm: 891386 1 Tablet(s) PO BID 04/2103/08/2018 Inactive Coreg 12.5 mg tablet RxNorm: 996885 1 Tablet(s) PO BID 201605/20/2017 Inactive Coreg 12.5 mg tablet RxNorm: 139976 1 Tablet(s) PO BID 201604/20/2017 Inactive Augmentin 500 mg-125 mg tablet RxNorm: 143832 1 Tablet(s) PO TID 04/14/2017 04/22/2017 Inactive Diflucan 150 mg tablet RxNorm: 552183 1 Tablet(s) PO daily 04/18/2017 Inactive Flomax 0.4 mg capsule RxNorm: 325179 Take 2 capsules by mouth daily 03/31/2017 09/29/2017 Inactive - First Attempt Ref: [id number] lisinopril 20 mg tablet RxNorm: 025953 1 Tablet(s) PO BID 03/1104/20/2017 Inactive Voltaren 1 % topical gel RxNorm: 265406 1 Application TOP BID as needed 03/09/2017 No Stop Date Active lisinopril 20 mg tablet RxNorm: 371543 2 Tablet(s) PO BID 02/2603/10/2017 Inactive cyclobenzaprine 5 mg tablet RxNorm: 343363 1 Tablet(s) PO TID as needed muscle spasms 02/24/2017 02/28/2017 Inactive warfarin 3 mg tablet RxNorm: 575024 1 Tablet(s) PO daily 201609/29/2017 Inactive lisinopril 20 mg tablet RxNorm: 481252 Take 2 tablets by mouth twice a day 09/22/2016 02/25/2017 Inactive - Ref: [id number] lisinopril 20 mg tablet RxNorm: 084871 1 Tablet(s) PO BID 05/0702/25/2017 Inactive First Attempt Coreg 25 mg tablet RxNorm: 797584 1 Tablet(s) PO BID 201502/23/[address] Reddy lisinopril 20 mg tablet RxNorm: 955668 1 Tablet(s) PO daily Take 2 tablets by mouth bid 05/07/2016 05/06/2016 Inactive First Attempt Flomax 0.4 mg capsule RxNorm: 896797 Take 2 capsules by mouth daily 03/15/2016 03/30/2017 Inactive - First Attempt lisinopril 20 mg tablet RxNorm: 612436 2 Tablet(s) PO BID Take 2 tablets by mouth bid 03/04/2016 05/06/2016 Inactive First Attempt lisinopril 20 mg tablet RxNorm: 063467 1 Tablet(s) PO BID Take 2 tablets by mouth daily 03/02/2016 03/03/2016 Inactive First Attempt Phenergan with Codeine Syrup RxNorm: 5 Milliliter(s) PO Q6 PRN 10/31/2015 No Stop Date Active Kenalog 40 mg/mL suspension for injection RxNorm: 4043334 Milliliter(s) Inj 10/31/2015 10/31/2015 Inactive warfarin 3 mg tablet RxNorm: 181008 Tablet(s) Take 1 tablet by mouth on ,wed, thur,sat and sun and 1 and 1/2 tablets by mouth on wed and wed10/31/2015 07/23/2016 Inactive Zithromax Z-[place] 250 mg tablet RxNorm: 183923 1 Tablet(s) PO UD 10/31/2015 11/04/2015 Inactive zpack Coreg 3.125 mg tablet RxNorm: 469197 1 Tablet(s) PO BID 201405/06/2016 Inactive warfarin 3 mg tablet RxNorm: 880892 Take 1 tablet by mouth on tues,wed,thur,sat and sun and 1 and 1/2 tablets by mouth on wed and wed06/05/2015 Inactive 2nd Attempt warfarin 3 mg tablet RxNorm: 034328 Tablet(s) Take 1 tablet by mouth on ,wed, thur,sat and sun and 1 and 1/2 tablets by mouth on wed and wed06/06/2015 10/30/2015 Inactive 2nd Attempt Flomax 0.4 mg capsule RxNorm: 289906 Take 2 capsules by mouth daily 04/29/2015 01/23/2016 Inactive First Attempt lisinopril 10 mg tablet RxNorm: 990951 Take 2 tablets by mouth daily 04/29/2015 01/23/2016 Inactive First Attempt warfarin 3 mg tablet RxNorm: 005236 one wedur sat sun 4.5mg wednesday Tablet(s) PO daily 07/25/2014 06/05/2015 Inactive Flomax 0.4 mg capsule RxNorm: 499328 2 Capsule(s) PO daily 07/2504/28/2015 Inactive lisinopril 10 mg tablet RxNorm: 249712 2 Tablet(s) PO daily 04/28/2015 Inactive Coreg 3.125 mg tablet RxNorm: 599549 1 Tablet(s) PO BID 201306/18/2015 Inactive cephalexin 500 mg capsule RxNorm: 736382 1 Capsule(s) PO QID 10/30/2015 Inactive lisinopril 20 mg tablet RxNorm: 251940 1 Tablet(s) PO BID 11/1003/09/2014 Inactive Flomax 0.4 mg capsule RxNorm: 191774 2 Capsule(s) PO daily 10/1207/24/2014 Inactive Coreg 3.125 mg tablet RxNorm: 043457 1 Tablet(s) PO BID 201307/24/2014 Inactive lisinopril 10 mg tablet RxNorm: 806336 2 Tablet(s) PO daily 11/09/2013 Inactive warfarin 3 mg tablet RxNorm: 054297 one wedur sat sun 4.5mg wednesday Tablet(s) PO daily 10/12/2013 07/24/2014 Inactive o Flomax 0.4 mg capsule RxNorm: 751185 2 Capsule(s) PO daily 06/0510/11/2013 Inactive Zetia 10 mg tablet RxNorm: 967971 1 Tablet(s) PO daily 201205/15/2013 Inactive Zetia 10 mg tablet RxNorm: 428107 1 Tablet(s) PO daily 201209/12/2013 Inactive Carafate 100 mg/mL Oral Susp RxNorm: 568370 10 Milliliter(s) PO QID 05/10/2013 10/30/2015 Inactive dispense one month supply Flomax 0.4 mg capsule RxNorm: 321893 2 Capsule(s) PO daily 05/1006/04/2013 Inactive Carafate 100 mg/mL Oral Susp RxNorm: 035641 10 Milliliter(s) PO QID 02/23/2013 04/23/2013 Inactive dispense one month supply gabapentin 100 mg capsule RxNorm: 490868 1 Capsule(s) PO daily one at bedtime and one up to three times daily as needed for nerve pain in leg 01/16/2013 05/09/2013 Inactive gabapentin 100 mg capsule RxNorm: 040883 1 Capsule(s) PO daily one at bedtime and one up to three times daily as needed for nerve pain in leg 01/12/2013 01/15/2013 Inactive warfarin 3 mg tablet RxNorm: 906719 Tablet(s) PO 12/05/2012 10/11/2013 Inactive one wed thur sat4.5 mg wed lisinopril 10 mg tablet RxNorm: 481376 2 Tablet(s) PO daily 02/201306/27/2013 Inactive gabapentin 100 mg capsule RxNorm: 768887 1 Capsule(s) PO Q8 PRN one at bedtime and one up to three times daily as needed for nerve pain in leg 11/30/2012 01/11/2013 Inactive Coreg 3.125 mg tablet RxNorm: 607922 1 Tablet(s) PO BID 201201/07/2013 Inactive lisinopril 10 mg tablet RxNorm: 720863 1.5 Tablet(s) PO daily 11/09/2012 11/29/2012 Inactive Co Q-10 oral RxNorm: 93912 oral No Start Date Active famotidine 20 mg tablet RxNorm: 018283 1 Tablet(s) PO QAM No Start Date Active Coreg 12.5 mg tablet RxNorm: 821369 1 Tablet(s) PO BID No Start Date 04/20/2017 Inactive Voltaren 1 % topical gel RxNorm: 163094 1 Application TOP BID as needed No Start Date 03/08/2017 Inactive lisinopril 20 mg tablet RxNorm: 349989 1 Tablet(s) PO BID No Start Date 05/16/2018 Inactive warfarin 3 mg tablet RxNorm: 677468 Tablet(s) PO No Start Date 12/04/2012 Inactive one tue thur sat4.5 mg wed Flomax 0.4 mg capsule RxNorm: 013859 1 Capsule(s) PO daily No Start Date 05/09/2013 Inactive niacin 500 mg tablet RxNorm: 859257 1 Tablet(s) PO daily No Start Date 03/01/2016 Inactive Medication Administered Medication Codes Instructions Start Date Status Kenalog 40 mg/mL suspension for injection RxNorm: 2350984 1Milliliter 10/06/2017 No longer Active Kenalog 40 mg/mL suspension for injection RxNorm: 2736543 Milliliter 10/31/2015 No longer Active Immunizations No Immunization data Assessments Condition Codes Effective Dates Cervicalgia ICD-10: M54.2 ICD-9: 723.1 04/15/2018 Essential (primary) hypertension ICD-10: I10 ICD-9: 401.9 04/15/2018 Paresthesia of skin ICD-10: R20.2 ICD-9: 782.0 04/15/2018 Benign prostatic hyperplasia with lower urinary tract symptoms ICD-10: N40.1 ICD-9: 600.91 12/01/2017 Other acute sinusitis ICD-10: J01.80 ICD-9: 461.8 10/06/2017 Other allergic rhinitis ICD-10: J30.89 ICD-9: 477.8 10/06/2017 Other correction (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 ICD-10: Z79.899 ICD-9: V58.69 [...] left hand ICD-10: M25.542 ICD-9: 719.44 02/24/2017 Impaired fasting glucose ICD-10: R73.01 ICD-9: 790.21 03/02/2016 Acute recurrent maxillary sinusitis ICD-10: J01.01 ICD-9: 461.0 10/31/2015 Mixed hyperlipidemia ICD-10: E78.2 ICD-9: 272.4 10/31/2015 CELLULITIS ICD-9: 682.9 01/25/2014 Cough ICD-9: 786.2 11/29/2013 Acute maxillary sinusitis ICD-9: 461.0 ESSENTIAL HYPERTENSION SNOMED: 63610839 ICD-9: 401.9 11/10/2013 Encounter for long-term (current) [...] Code Item Item Code Result Date Pt Rxm1834 PT 25.5 seconds 08/29/2018 Pt Jxy6383 INR 2.4 08/29/2018 Pt Fby7588 Low Intensity - 1.5-2.0 08/29/2018 Pt Xln0127 Mod intensity - 2.0-3.0 08/29/2018 Pt Dpe6867 Hi intensity - 3.0-4.0 08/29/2018 Pt Qss1186 PT 35.9 seconds 08/11/2018 Pt Puy4393 INR 3.6 08/11/2018 Pt Zwa0592 Low Intensity - 1.5-2.0 08/11/2018 Pt Spu8973 Mod intensity - 2.0-3.0 08/11/2018 Pt Lyb9363 Hi intensity - 3.0-4.0 08/11/2018 Pt Fbt6779 PT 27.2 seconds 06/16/2018 Pt Oeb2327 INR 2.5 06/16/2018 Pt Omj3046 Low Intensity - 1.5-2.0 06/16/2018 Pt Jvi5254 Mod intensity - 2.0-3.0 06/16/2018 Pt Zbo2173 Hi intensity - 3.0-4.0 06/16/2018 Pt Ekc0426 PT 38.0 seconds 04/04/2018 Pt Mgw7615 INR 3.8 04/04/2018 Pt Vqv9392 Low Intensity - 1.5-2.0 04/04/2018 Pt Ldk0428 Mod intensity - 2.0-3.0 04/04/2018 Pt Hgg1780 Hi intensity - 3.0-4.0 04/04/2018 Metabolic Ord15 NA 139 mEq/L 04/04/2018 [...] 04/04/2018 Metabolic Ord15 CALCIUM 8.8 mg/dL 04/04/2018 Magnesium Ord90 Mag 1.9 mg/dL 04/04/2018 Pt Gqt5824 PT 21.1 seconds 03/08/2018 Pt Qhm8605 INR 1.8 03/08/2018 Pt Rhw4812 Low Intensity - 1.5-2.0 03/08/2018 Pt Vlr3538 Mod intensity - 2.0-3.0 03/08/2018 Pt Iaw6405 Hi intensity - 3.0-4.0 03/08/2018 Pt Ejb5931 PT 37.2 seconds 02/23/2018 Pt Qvf6550 INR 3.7 02/23/2018 Pt Rwo6165 Low Intensity - 1.5-2.0 02/23/2018 Pt Hxj8446 Mod intensity - 2.0-3.0 02/23/2018 Pt Ikp8039 Hi intensity - 3.0-4.0 02/23/2018 Pt Qwv6678 PT 33.4 seconds 12/28/2017 Pt Ewa7456 INR 3.2 12/28/2017 Pt Sjn0716 Low Intensity - 1.5-2.0 12/28/2017 Pt Mlt0667 Mod intensity - 2.0-3.0 12/28/2017 Pt Suh2101 Hi intensity - 3.0-4.0 12/28/2017 Pt Cll1070 PT 30.2 seconds 10/06/2017 Pt Qfw5711 INR 2.9 10/06/2017 Pt Rjo1114 Low Intensity - 1.5-2.0 10/06/2017 Pt Vcv4262 Mod intensity - 2.0-3.0 10/06/2017 Pt Vih2694 Hi intensity - 3.0-4.0 10/06/2017 Pt Aul0178 PT 33.3 seconds 06/23/2017 Pt Sou7673 INR 3.2 06/23/2017 Pt Xlu4693 Low Intensity - 1.5-2.0 06/23/2017 Pt Kez9667 Mod intensity - 2.0-3.0 06/23/2017 Pt Yur9892 Hi intensity - 3.0-4.0 06/23/2017 Tsh Ord6 hTSH II 0.86 uIU/mL 02/24/2017 C-Reactive Protein Qnt Crqnt CRP 0.2 mg/dl 02/24/2017 Comp Metabolic Bya053 NA 139 mEq/L 02/24/2017 Comp Metabolic Ecy258 K 3.9 mEq/L 02/24/2017 Comp Metabolic Urn465 CL 105 mEq/L 02/24/2017 Comp Metabolic Tea990 CO2 27.0 mEq/L 02/24/2017 Comp Metabolic Miu628 ANION GAP 11 02/24/2017 Comp Metabolic Gbr667 GLUCOSE 93 mg/dL 02/24/2017 Comp Metabolic Vsb372 Creat 1.1 mg/dL 02/24/2017 Comp Metabolic Exs938 eGFR 73 ml/min/1.73m2 02/24/2017 Comp Metabolic Jzd466 BUN 14 mg/dL 02/24/2017 Comp Metabolic Rja007 B/C Ratio 13.1 Ratio 02/24/2017 Comp Metabolic Dka521 CALCIUM 8.4 mg/dL 02/24/2017 Comp Metabolic Rdf959 ALK PHOS 89 U/L 02/24/2017 Comp Metabolic Qgu529 AST(SGOT) 18 U/L 02/24/2017 Comp Metabolic Mkv487 ALT(SGPT) 21 U/L 02/24/2017 Comp Metabolic Ypk157 BILI T 0.5 mg/dL 02/24/2017 Comp Metabolic Fda738 ALBUMIN 3.8 g/dL 02/24/2017 Comp Metabolic Hba189 TPRO 6.5 g/dL 02/24/2017 Comp Metabolic Tkl200 GLOB 2.7 g/dL 02/24/2017 Comp Metabolic Fnj833 A/G Ratio 1.4 Ratio 02/24/2017 Comp Metabolic Uwm156 Osmo 278 mOsmo 02/24/2017 Sed Rate Ord21 ESR 25 mm/hr 02/24/2017 Pt Osm7893 PT 31.7 seconds 02/24/2017 Pt Wxc4166 INR 3.3 02/24/2017 Pt Wdz4540 Low Intensity - 1.5-2.0 02/24/2017 Pt Ezj1828 Mod intensity - 2.0-3.0 02/24/2017 Pt Yas1124 Hi intensity - 3.0-4.0 02/24/2017 Cbc With Differential Ord2 WBC 8.43 K/ul 02/24/2017 Cbc With Differential Ord2 RBC 5.17 M/ul 02/24/2017 Cbc With Differential Ord2 HGB 15.3 g/dl 02/24/2017 Cbc With Differential Ord2 Neut% 55.5 % 02/24/2017 Cbc With Differential Ord2 HCT 43.7 % 02/24/2017 Cbc With Differential Ord2 MCV 84.5 fl 02/24/2017 Cbc With Differential Ord2 Lymph% 31.1 % 02/24/2017 Cbc With Differential Ord2 [place]% 9.7 % 02/24/2017 Cbc With Differential Ord2 [...] 2.62 K/ul 02/24/2017 Cbc With Differential Ord2 [place] ABS# 0.8 K/ul 02/24/2017 Cbc With Differential Ord2 Eos ABS# 0.2 K/ul 02/24/2017 Cbc With Differential Ord2 Baso ABS# 0.1 K/ul 02/24/2017 Pt Spm9501 PT 22.4 seconds 12/28/2016 Pt Ubv7844 INR 2.1 12/28/2016 Pt Lar2730 Low Intensity - 1.5-2.0 12/28/2016 Pt Kwb7523 Mod intensity - 2.0-3.0 12/28/2016 Pt Bzw2829 Hi intensity - 3.0-4.0 12/28/2016 Pt Xvm9845 PT 30.2 seconds 11/26/2016 Pt Bks4449 INR 3.1 11/26/2016 Pt Oiu8442 Low Intensity - 1.5-2.0 11/26/2016 Pt Pwj6852 Mod intensity - 2.0-3.0 11/26/2016 Pt Jtv7133 Hi intensity - 3.0-4.0 11/26/2016 Pt Ubs6434 PT 34.3 seconds 11/20/2016 Pt Ipa0868 INR 3.7 11/20/2016 Pt Qjp3257 Low Intensity - 1.5-2.0 11/20/2016 Pt Vnv2426 Mod intensity - 2.0-3.0 11/20/2016 Pt Vxi9965 Hi intensity - 3.0-4.0 11/20/2016 Pt Kjc2267 PT 29.0 seconds 07/14/2016 Pt Wnt5746 INR 2.9 07/14/2016 Pt Uge2145 Low Intensity - 1.5-2.0 07/14/2016 Pt Dte5441 Mod intensity - 2.0-3.0 07/14/2016 Pt Fws2894 Hi intensity - 3.0-4.0 07/14/2016 Lipid Ord30 CHOL 236 mg/dL 07/14/2016 Lipid Ord30 HDL 36.0 mg/dl 07/14/2016 Lipid Ord30 TRIG 406 mg/dL 07/14/2016 Lipid Ord30 LDL Unable to calculate Due to elevated triglycerides mg/dL 07/14/2016 Lipid Ord30 C/HDL 6.6 Ratio 07/14/2016 Pt Ghb1689 PT 30.0 seconds 03/02/2016 Pt Bee3831 INR 3.1 03/02/2016 Pt Dtk3740 Low Intensity - 1.5-2.0 03/02/2016 Pt Aca5643 Mod intensity - 2.0-3.0 03/02/2016 Pt Iex8556 Hi intensity - 3.0-4.0 03/02/2016 %Hba1C Iwz621 % HbA1c 54745-8 6.0 % 03/02/2016 %Hba1C Wnt531 Gluc Ave 126 mg/dL 03/02/2016 Tsh Ord6 hTSH II 0.68 uIU/mL 03/02/2016 Comp Metabolic Xhh797 NA 140 mEq/L 03/02/2016 Comp Metabolic Gsr233 K 4.1 mEq/L 03/02/2016 Comp Metabolic Qtp092 CL 105 mEq/L 03/02/2016 Comp Metabolic Ele233 CO2 29.0 mEq/L 03/02/2016 Comp Metabolic Sms175 ANION GAP 10 03/02/2016 Comp Metabolic Hrv640 GLUCOSE 104 mg/dL 03/02/2016 Comp Metabolic Fqe005 Creat 1.0 mg/dL 03/02/2016 Comp Metabolic Bet538 eGFR 77 ml/min/1.73m2 03/02/2016 Comp Metabolic Shb075 BUN 15 mg/dL 03/02/2016 Comp Metabolic Whf877 B/C Ratio 14.7 Ratio 03/02/2016 Comp Metabolic Wyb757 CALCIUM 8.9 mg/dL 03/02/2016 Comp Metabolic Ljo968 ALK PHOS 84 U/L 03/02/2016 Comp Metabolic Wwk756 AST(SGOT) 16 U/L 03/02/2016 Comp Metabolic Odi082 ALT(SGPT) 17 U/L 03/02/2016 Comp Metabolic Sml705 BILI T 0.5 mg/dL 03/02/2016 Comp Metabolic Wor542 ALBUMIN 4.0 g/dL 03/02/2016 Comp Metabolic Vzk870 TPRO 6.6 g/dL 03/02/2016 Comp Metabolic Nly548 GLOB 2.6 g/dL 03/02/2016 Comp Metabolic Onv332 A/G Ratio 1.5 Ratio 03/02/2016 Comp Metabolic Fbi052 Osmo 281 mOsmo 03/02/2016 Cbc With Differential Ord2 WBC 8.05 K/ul 03/02/2016 Cbc With Differential Ord2 RBC 5.16 M/ul 03/02/2016 Cbc With Differential Ord2 HGB 15.1 g/dl 03/02/2016 Cbc With Differential Ord2 Neut% 60.4 % 03/02/2016 Cbc With Differential Ord2 HCT 44.4 % 03/02/2016 Cbc With Differential Ord2 Lymph% 28.4 % 03/02/2016 Cbc With Differential Ord2 MCV 86.0 fl 03/02/2016 Cbc With Differential Ord2 MCH 29.3 pg 03/02/2016 Cbc With Differential Ord2 Jasper% 8.1 % 03/02/2016 Cbc With Differential Ord2 Eos% 1.9 % 03/02/2016 Cbc With Differential Ord2 MCHC 34.0 pg 03/02/2016 Cbc With Differential Ord2 Baso% 1.2 % 03/02/2016 Cbc With Differential Ord2 PLT 232 K/ul 03/02/2016 Cbc With Differential Ord2 RDW 14.0 % 03/02/2016 Cbc With Differential Ord2 Neut ABS# 4.86 K/ul 03/02/2016 Cbc With Differential Ord2 Lymph ABS# 2.29 K/ul 03/02/2016 Cbc With Differential Ord2 [place] ABS# 0.7 K/ul 03/02/2016 Cbc With Differential [...] 25.5 % 10/31/2015 Cbc With Differential Ord2 MCH 28.8 pg 10/31/2015 Cbc With Differential Ord2 [place]% 12.7 % 10/31/2015 Cbc With Differential Ord2 MCHC 34.0 pg 10/31/2015 Cbc With Differential Ord2 Eos% 1.4 % 10/31/2015 Cbc With Differential Ord2 PLT 222 K/ul 10/31/2015 Cbc With Differential Ord2 Baso% 0.6 % 10/31/2015 Cbc With Differential Ord2 Neut ABS# 3.07 K/ul 10/31/2015 Cbc With Differential Ord2 RDW 14.4 % 10/31/2015 Cbc With Differential Ord2 Lymph ABS# 1.31 K/ul 10/31/2015 Cbc With Differential Ord2 [place] ABS# 0.7 K/ul 10/31/2015 Cbc With Differential [...] hTSH II 0.88 uIU/mL 10/31/2015 Comp Metabolic Dnr292 NA 135 mEq/L 10/31/2015 Comp Metabolic Mgi392 K 4.2 mEq/L 10/31/2015 Comp Metabolic Lqt554 CL 99 mEq/L 10/31/2015 Comp Metabolic Lmg794 CO2 28.0 mEq/L 10/31/2015 Comp Metabolic Ech815 ANION GAP 12 10/31/2015 Comp Metabolic Kbk708 GLUCOSE 107 mg/dL 10/31/2015 Comp Metabolic Rhd724 Creat 1.2 mg/dL 10/31/2015 Comp Metabolic Cyf953 eGFR 63 ml/min/1.73m2 10/31/2015 Comp Metabolic Ahz465 BUN 12 mg/dL 10/31/2015 Comp Metabolic Gvq476 B/C Ratio 9.9 Ratio 10/31/2015 Comp Metabolic Bnq581 CALCIUM 8.4 mg/dL 10/31/2015 Comp Metabolic Rrt450 ALK PHOS 134 U/L 10/31/2015 Comp Metabolic Aah943 AST(SGOT) 20 U/L 10/31/2015 Comp Metabolic Prl431 ALT(SGPT) 16 U/L 10/31/2015 Comp Metabolic Bju123 BILI T 0.4 mg/dL 10/31/2015 Comp Metabolic Ufv585 ALBUMIN 4.2 g/dL 10/31/2015 Comp Metabolic Xjj476 TPRO 7.2 g/dL 10/31/2015 Comp Metabolic Zun034 GLOB 3.1 g/dL 10/31/2015 Comp Metabolic Zgo122 A/G Ratio 1.4 Ratio 10/31/2015 Comp Metabolic Iem513 Osmo 270 mOsmo 10/31/2015 Total Psa Ord10 PSA 2.66 ng/mL 10/31/2015 %Hba1C Qwd569 % HbA1c 22251-4 6.1 % 10/31/2015 %Hba1C Cga481 Gluc Ave 128 mg/dL 10/31/2015 Pt Zgo8748 PT 26.4 seconds 10/31/2015 Pt Cep6492 INR 2.5 10/31/2015 Pt Ifs9801 Low Intensity - 1.5-2.0 10/31/2015 Pt Xzt7879 Mod intensity - 2.0-3.0 10/31/2015 Pt Loi2842 Hi intensity - 3.0-4.0 10/31/2015 TSH 9205649 TSH 0.819 uIU/ML 11/10/2013 PT/MC 8122265 PRO TIME 24.5 SEC 11/10/2013 PT/MC 7993171 INR MCMC 2.3 11/10/2013 GFR CALC 6884282 GFR AA >60 ML/MIN 11/10/2013 GFR CALC 1697876 GFR NON-AA >60 ML/MIN 11/10/2013 CBC 9707387 WBC 8.4 10e9/L 11/10/2013 CBC 4947026 RBC 5.24 10e12/L 11/10/2013 CBC 0512345 HGB 15.4 g/dL 11/10/2013 CBC 3551057 HCT DET 43.8 % 11/10/2013 CBC 1321033 MCV 83.6 fL 11/10/2013 CBC 9056299 MCH 29.4 pg 11/10/2013 CBC 3604488 MCHC 35.2 g/dL 11/10/2013 CBC 0788230 PLT 250 10e9/L 11/10/2013 CBC 6684979 MPV 11.1 fL 11/10/2013 CBC 5698066 OANH % 58.1 % 11/10/2013 CBC 6952736 LY % 28.5 % 11/10/2013 CBC 3243348 MON % 10.2 % 11/10/2013 CBC 1572763 EOS % 2.1 % 11/10/2013 CBC 0054607 BASO % 1.1 % 11/10/2013 CBC 7763203 RDW 13.3 % 11/10/2013 CBC 6931197 ABS OANH 4.88 10e9/L 11/10/2013 CBC 5881489 ABS LYMPH 2.39 10e9/L 11/10/2013 CBC 8224525 ABS MONO 0.86 10e9/L 11/10/2013 CBC 8143860 ABS EOS 0.18 10e9/L 11/10/2013 CBC 9886919 ABS BASO 0.09 10e9/L 11/10/2013 CBC 1247589 RDW-SD 40.7 fL 11/10/2013 CHEM 14 0862956 AST 17 U/L 11/10/2013 CHEM 14 9528228 ALT 17 IU/L 11/10/2013 CHEM 14 8353821 BUN 15 MG/DL 11/10/2013 CHEM 14 8006314 ALBUMIN 4.3 GM/DL 11/10/2013 CHEM 14 2015942 CHLORIDE 103 MMOL/L 11/10/2013 CHEM 14 9414021 BILI TOT 0.6 MG/DL 11/10/2013 CHEM 14 3876235 ALK PHOS 104 U/L 11/10/2013 CHEM 14 3219520 SODIUM 137 MMOL/L 11/10/2013 CHEM 14 1890523 CREATININE 1.08 MG/DL 11/10/2013 CHEM 14 8129456 CALCIUM 8.9 MG/DL 11/10/2013 CHEM 14 3304709 POTASSIUM 4.0 MMOL/L 11/10/2013 CHEM 14 4580738 PROT TOT 7.0 GM/DL 11/10/2013 CHEM 14 9824907 GLUCOSE 84 MG/DL 11/10/2013 CHEM 14 0534320 BICARB 28 MMOL/L 11/10/2013 CHEM 14 0714865 ANION GAP 6 MEQ/L 11/10/2013 Review of [...] sounds 11/10/2013 None Full Exam - General 1995 Constitutional general appearance Overall: well developed 05/10/2013 [...] tenderness 02/23/2013 None Full Exam - General 1995 Abdomen abdominal exam Overall: normal bowel sounds 02/23/2013 None Full Exam - General 1995 Constitutional general appearance Overall: well developed 01/12/2013 None Full Exam - General 1995 Constitutional [...] nourished 11/30/2012 None Full Exam - General 1995 Eyes pupils and irises Overall: pupils equal, [...] clubbing 11/09/2012 None Full Exam - General 1995 Abdomen abdominal exam Overall: no tenderness 11/09/2012 [...] atraumatic 11/09/2012 None Full Exam - General 1995 Musculoskeletal spine, ribs and pelvis Overall: good posture 11/09/2012 None Full Exam - General 1995 Musculoskeletal spine, ribs and pelvis Overall: sacroiliac joint benign 11/09/2012 None Full Exam - General 1995 Musculoskeletal spine, ribs and pelvis Overall: spine [...] Procedure Codes Date THER/PROPH/DIAG INJ SC/IM CPT-4: 79780 10/06/2017 TRIAMCINOLONE ACET INJ NOS CPT-4: J3301 10/06/2017 THER/PROPH/DIAG INJ SC/IM CPT-4: 34332 10/31/2015 TRIAMCINOLONE ACET INJ NOS CPT-4: J3301 10/31/2015 ROUTINE VENIPUNCTURE CPT-4: 87365 11/10/2013 PRESCRIP TRANSMIT VIA ERX SY CPT-4: G8553 02/23/2013 PRESCRIP TRANSMIT VIA ERX SY CPT-4: G8553 11/30/2012 PRESCRIP TRANSMIT VIA ERX SY CPT-4: G8553 11/09/2012 Vital Signs Date Vital 04/15/2018 Blood Pressure 1: 150/88 Code : 8480-6 BMI: 28.1 Code : 80525-6 Heart Rate 1 : 84 bpm Height: 5'10" SpO2: 98% Weight: 196 lbs 12/01/2017 Blood Pressure 1: 154/78 Code : 8480-6 BMI: 28.4 Code : 17457-1 Heart Rate 1 : 87 bpm Height: 5'10" SpO2: 98% Weight: 198 lbs 10/06/2017 Blood Pressure 1: 136/74 Code : 8480-6 BMI: 38.0 Code : 00703-4 Heart Rate 1 : 75 bpm Height: 5' SpO2: 95% Temperature: 36.8 (C) / 98.2 (F) Weight: 194 lbs 8 oz 06/23/2017 Blood Pressure 1: 152/82 Code : 8480-6 BMI: 28.3 Code : 35407-4 Heart Rate 1 : 58 bpm Height: 5'10" SpO2: 96% Weight: 197 lbs 04/14/2017 Blood Pressure 1: 146/84 Code : 8480-6 BMI: 27.5 Code : 02431-0 Heart Rate 1 : 69 bpm Height: 5'10" SpO2: 95% Weight: 192 lbs 02/24/2017 Blood Pressure 1: 146/60 Code : 8480-6 BMI: 27.4 Code : 78613-6 Heart Rate 1 : 61 bpm Height: 5'10" SpO2: 97% Weight: 191 lbs 05/07/2016 Blood Pressure 1: 146/66 Code : 8480-6 BMI: 26.3 Code : 55673-3 Heart Rate 1 : 69 bpm Height: 5'10" SpO2: 97% Weight: 183 lbs 03/02/2016 Blood Pressure 1: 170/100 Code: 8480-6 Blood Pressure 1: 190/108 Code: 8480-6 BMI: 26.5 Code: 76851-3 Heart Rate 1: 76 bpm Height: 5'10" SpO2: 98% Weight: 185 lbs 10/31/2015 Blood Pressure 1: 126/86 Code : 8480-6 Blood Pressure 1: 142/90 Code: 8480-6 BMI: 26.8 Code: 83903-1 Heart Rate 1: 99 bpm Height: 5'10" SpO2: 95% Temperature: 37.0 (C) / 98.6 (F) Weight: 187 lbs 01/25/2014 Blood Pressure 1: 180/90 Code : 8480-6 BMI: 26.3 Code : 28416-0 Heart Rate 1 : 76 bpm Height: [...] Code : 8480-6 BMI: 25.7 Code : 88650-8 Heart Rate 1 : 84 bpm Height: 5'10" Weight: 179 lbs 02/23/2013 Blood Pressure 1: 138/90 Code : 8480-6 BMI: 27.0 Code : 85971-3 Heart Rate 1 : 88 bpm Height: 5'10" Temperature: 37.0 (C) / 98.6 (F) Weight: 188 lbs 01/12/2013 Blood Pressure 1: 136/78 Code : 8480-6 BMI: 26.7 Code : 86981-1 Heart Rate 1 : 96 bpm Height: 5'10" Weight: 186 lbs 11/30/2012 Blood Pressure 1: 170/90 Code : 8480-6 BMI: 26.8 Code : 05209-5 Heart Rate 1 : 80 bpm Height: 5'10" Weight: 187 lbs 11/09/2012 Blood Pressure 1: 178/84 Code : 8480-6 BMI: 26.5 Code : 06571-0 Heart Rate 1 : 86 bpm Height: [...] pain Quality recurrent 05/10/2013 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 PATIENT, LEVEL III Diagnosis: Paresthesia of skin[ICD10: R20.2] Diagnosis: Cervicalgia[ICD10: M54.2] Diagnosis: Essential (primary) hypertension[ICD10: I10] [facility] CPT-4: 33931 04/15/2018 ([id number]) PER PM REEVAL EST PAT 65+ YR Diagnosis: Benign prostatic hyperplasia with lower urinary tract symptoms[ICD10 : N40.1] Diagnosis: Essential (primary) hypertension[ICD10: I10] [facility] CPT-4: 21898 12/01/2017 09130 EST. PATIENT, LEVEL IV Diagnosis: Other acute sinusitis[ICD10: J01.80] Diagnosis: Other allergic rhinitis[ICD10: J30.89] Diagnosis: Other termination clerk (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[ICD10: Z79.899] [facility] CPT-4: 05156 10/06/2017 06818 EST. PATIENT, LEVEL IV Diagnosis: Gastro-esophageal reflux disease without esophagitis[ICD10: K21.9] Diagnosis: Pain in right elbow[ICD10: M25.521] Diagnosis: Other correction (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[ICD10: Z79.899] [facility] CPT-4: 34335 06/23/2017 08987 EST. PATIENT, LEVEL IV Diagnosis: Other conditions associated with Lyme disease[ICD10: A69.29] Diagnosis: Other dorsalgia[ICD10: M54.89] Gayle Fajardo MD, [facility] CPT-4 : 22207 04/14/2017 06562 EST. PATIENT, LEVEL IV Diagnosis: Pain in left elbow[ICD10: M25.522] Diagnosis: Pain in right elbow[ICD10: M25.521] Diagnosis: Pain in joints of left hand[ICD10: M25.542] Diagnosis: Pain in joints of right hand[ICD10: M25.541] Diagnosis: Other fatigue[ICD10: R53.83] Diagnosis: Other correction (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[ICD10: Z79.899] Gayle Fajardo MD, [facility] CPT-4: 12941 02/24/2017 ([id number]) 36153 EST. PATIENT, LEVEL III Diagnosis: Essential (primary) hypertension[ICD10: I10] Jennifer Fajardo MD, [facility] CPT-4: 27520 05/07/2016 ([id number]) 80352 EST. PATIENT, LEVEL IV Diagnosis: Essential (primary) hypertension[ICD10: I10] Diagnosis: Impaired fasting glucose[ICD10: R73.01] Diagnosis: Other termination clerk (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[ICD10: Z79.899] Jennifer Fajardo MD, [facility] CPT-4: 50243 03/02/2016 ([id number]) 14844 EST. PATIENT, LEVEL IV Diagnosis: Essential (primary) hypertension[ICD10: I10] Diagnosis: Mixed hyperlipidemia[ICD10: E78.2] Diagnosis: Other correction (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[ICD10: Z79.899] Diagnosis: Impaired fasting glucose[ICD10: R73.01] Diagnosis: Acute recurrent maxillary sinusitis[ICD10: J01.01] Jennifer Fajardo MD, [facility] CPT-4: 12564 10/31/2015 ([id number]) 84024 EST. PATIENT, LEVEL III Diagnosis: CELLULITIS[ICD9: 682.9] Mahnaz Fajardo MD, [facility] CPT-4: 61854 01/25/2014 ([id number]) 13013 EST. PATIENT, LEVEL III Diagnosis: Acute maxillary sinusitis[ICD9: 461.0] Diagnosis: Cough[ICD9: 786.2] Mahnaz Fajardo MD [facility] CPT-4: 36133 11/29/2013 ([id number]) 36569 EST. PATIENT, LEVEL III Diagnosis: ESSENTIAL HYPERTENSION[SNOMED: 86930546] Diagnosis: Encounter for long-term (current) use of other high-risk medications[ ICD9: V58.69] Jennifer Fajardo MD [facility] CPT-4: 16313 11/10/2013 ([id number]) 96071 EST. PATIENT, LEVEL IV Diagnosis: ESSENTIAL HYPERTENSION[SNOMED: 09687331] Diagnosis: HYPERLIPIDEMIA[ICD9: 272.4] Mahnaz Fajardo MD [facility] CPT- 4: 02819 05/10/2013 ([id number]) 20518 EST. PATIENT, LEVEL III Diagnosis: Esophageal reflux[ICD9: 530.81] Diagnosis: Sore throat[ICD9: 462] Diagnosis: Allergic rhinitis[ICD9: 477.9] Mahnaz Fajardo MD [facility] CPT- 4: 16344 02/23/2013 ([id number]) 33837 EST. PATIENT, LEVEL III Diagnosis: ESSENTIAL HYPERTENSION[SNOMED: 61921221] Diagnosis: HYPERLIPIDEMIA[ICD9: 272.4] Mahnaz Fajardo MD [facility] CPT- 4: 50280 01/12/2013 ([id number]) 36795 EST. 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 04/15/2018 Appointment: [facility] [facility] (15 min) Moderate 04/15/2018 Patient Education: Patient Medication Summary Completed 04/15/2018 Referral: [phone] [facility] Referral Initiated 12/16/2017 Visit Plan: Hypertension - [...] Dr. Hdez 12/01/2017 Appointment: Gayle Morris WPtel: [address] [place] [address] (30 min) Complex 12/01/2017 Patient Education: Patient Medication Summary Completed 12/01/2017 Care Plan: Referral Order SNOMED-CT : 426168779 Pending 12/01/2017 Visit Plan: Sinusitis - Pt [...] allergy spray. 10/06/2017 Appointment: Gayle Morris WPtel: [facility] (30 min) Complex 10/06/2017 Patient Education: Patient Medication Summary Completed 10/06/2017 Care Plan: Pt Approved 10/06/2017 Referral: Kobe Benjamin [address] [facility] Referral Initiated 07/06/2017 Visit Plan: Esophageal [...] not improve. 06/23/2017 Appointment: Gayle Morris WPtel: [facility] [place] (30 min) Complex 06/23/2017 Patient Education: Patient Medication Summary Completed 06/23/2017 Care Plan: Referral Order SNOMED-CT : 128926443 Pending 06/23/2017 Visit Plan: Back pain, lyme [...] Pain Completed 04/14/2017 Appointment: Gayle Morris WPtel: [facility]5 [facility] [address] [place] (30 min) Complex 04/13/2017 Visit Plan: Joint pain, back pain - will check labs - The pt is to use prn antiinflammatories to manage acute pain. The patient is to call the office if the pain is worsening or does not improve. 02/24/2017 Appointment: Gayle Morris WPtel: [facility] [place] (30 min) Complex 02/24/2017 Patient Education: Patient Medication Summary Completed 02/24/2017 Patient Education: Patient Medication Summary Completed 11/20/2016 Care Plan: Pt Pending 11/20/2016 Appointment: Jennifer Perez WPtel: [facility]5 [facility] [phone] [place] (30 min) Complex 11/05/2016 Visit Plan: Hypertension - well controlled - continue with current medications, continue with no added salt diet. Pt has been encouraged to exercise daily. The pt has been advised to call the office if there are any acute concerns about change in blood pressure readings at home. 05/07/2016 Appointment: Jennifer Perez WPtel: [address] [place], [place] [phone] (30 min) Complex 05/07/2016 Patient Education: Patient [...] 03/02/2016 Care Plan: Referral Order SNOMED-CT : 999089843 Pending 03/02/2016 Visit Plan: Hypertension - well [...] Call if symptoms do not show improvement. Micheletalog injection today in the office. 10/31/2015 Appointment: [...] of pressure. 01/25/2014 Appointment: Mahnaz Fajardo WPtel: [facility]9 [facility] Other 01/25/2014 Patient Education: Patient Medication Summary Completed 01/25/2014 Appointment: Mahnaz Fajardo WPtel: [address] [place], [place] [phone] Sick 11/29/2013 Patient Education: Patient Medication Summary [...] Coumadin-check PT/INR 11/10/2013 Appointment: Jennifer Perez WPtel: [address] [place], [place] [phone] Follow up 11/10/2013 Patient Education: Patient Medication Summary Completed 11/10/2013 Patient Education: Hypertension Completed 11/10/2013 Appointment: Mahnaz Fajardo WPtel: [address] [place], [place] [phone] Follow up 11/08/2013 Visit Plan: Hypertension - [...] to medications. 05/10/2013 Appointment: Mahnaz Fajardo WPtel: [phone] [facility] Follow up 05/10/2013 Patient Education: Patient Medication Summary Completed 05/10/2013 Patient Education: Hypertension Completed 05/10/2013 Appointment: Mahnaz Fajardo WPtel: [phone] [facility] Sick 02/24/2013 Visit Plan: Esophageal Reflux - [...] one month. 01/12/2013 Appointment: Mahnaz Fajardo WPtel: [phone] [facility] Follow up 01/12/2013 Patient Education: Patient Medication Summary Completed 01/12/2013 Patient Education: Hypertension Completed 01/12/2013 Appointment: [phone] [facility] Follow up 01/11/2013 Visit Plan: Nerve pain [...] to assure normal liver response to medications. [place] red Krill oil twice daily 11/30/2012 Appointment: Tana Mahnaz [facility]Ptel[facility] [phone] [facility] Follow up 11/30/2012 Patient Education: Patient Medication [...] suspect arthritis. 11/09/2012 Appointment: [facility]el[facility] [phone] [facility] New Patient 11/09/2012 Patient Education: Patient Medication Summary Completed 11/09/2012 Patient Education: Hypertension Completed 11/09/2012 Referral: Kobe Benjamin [address] [facility] Referral Initiated Referral: Fernando Hdez WPtel: [phone] [id number] Referral Initiated Referral: Opal Reddy Referral Appointment Requested Instructions Comment I would like to check a tick panel for [place] Spotted Fever - I will give you a script for the blood draw let me know where you get it done so we can look for results. I would like to start doxycycline - I can send augmentin for you to start, but the only treatment for [place] Spotted Fever is Doxycycline. Massage from [facility] [...] Zuniga for hip pain - suspect arthritis. . Hypertension - well controlled - continue with current medications, continue with no added salt diet. Pt has been encouraged to exercise daily. The pt has been advised to call the office if there are any acute concerns about change in blood pressure readings at home. Hyperlipidemia - check lipids in one month. [place] red Krill oil twice daily increase the [...] to assure normal liver response to medications. [place] red Krill oil twice daily . Hypertension [...] to Dr. Benjamin for colonoscopy and EGD [facility] . Esophageal Reflux - the patient [...]
--- OUTSIDE RECORDS SUMMARY | 2018-11-11 10:11 | XMS REPORT | CCD ---
Author Author Mahnaz Fajardo Organization Mahnaz Fajardo MD, [facility] Address [address] [place] [address] Phone Care Team Providers Care Charge Operator Name Role Phone PP Unavailable CCM Unavailable Summary Purpose Interface Exchange Insurance Providers Payer name Policy type / Coverage type Covered libertarian ID Effective Begin Date Effective End Date [employer] Solutions Medicare Part B [id number] 2016 Unknown Family history Mother Diagnosis Age At Onset Stroke Unknown Father Diagnosis Age At Onset Hypertension Unknown Sister Diagnosis Age At Onset Hypertension Unknown Social History Social History Element Codes Description Effective Dates Marital status Unknown 11/09/[address]: 2208277 Former smoker quit 1988 11/09/2012 Allergies, Adverse [...] 477.8 ICD-10: J30.89 Active 10/06/2017 Unknown Other director voice (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 ICD-9: V58.69 ICD-10: Z79.899 [...] ICD-9: 477.8 ICD-10: J30.89 10/06/2017 Active Other director voice (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 ICD-9: V58.69 ICD-10: Z79.899 [...] Start Date Stop Date Status Fill Instructions lisinopril 20 mg tablet RxNorm: 972636 1 Tablet(s) PO BID 05/1708/09/2019 Active Augmentin 500 mg-125 mg tablet RxNorm: 387681 1 Tablet(s) PO TID 04/29/2018 05/08/2018 Inactive Diflucan 150 mg tablet RxNorm: 166956 1 Tablet(s) PO daily 11/201705/03/2018 Inactive lisinopril 40 mg tablet RxNorm: 774068 1/2 Tablet(s) PO BID 03/03/2019 Active change from lisinopril 20 BID lisinopril 40 mg tablet RxNorm: 813451 1/2 Tablet(s) PO BID 03/08/2018 Inactive Coreg 12.5 mg tablet RxNorm: 434981 TAKE 1 TABLET BY MOUTH TWO TIMES DAILY 02/23/2018 08/21/2018 Inactive - Ref: [id number] amoxicillin 500 mg capsule RxNorm: 664634 1 Capsule(s) PO TID 10/19/2017 10/28/2017 Inactive amoxicillin 500 mg capsule RxNorm: 363128 1 Capsule(s) PO TID 10/19/2017 10/18/2017 Inactive Kenalog 40 mg/mL suspension for injection RxNorm: 9213947 1 Milliliter(s) Inj 10/06/2017 10/06/2017 Inactive Zithromax Z-[place] 250 mg tablet RxNorm: 236558 1 Tablet(s) PO UD 10/06/2017 02/22/2018 Inactive Flomax 0.4 mg capsule RxNorm: 085784 TAKE 2 CAPSULES BY MOUTH DAILY 09/30/2017 12/23/2018 Active - Ref: [id number] warfarin 3 mg tablet RxNorm: 763619 TAKE 1 TABLET BY MOUTH ON WEDNESDAY , WEDNESDAY , WEDNESDAY,WEDNESDAY, WEDNESDAY THEN 1 AND 1/2 TABLETS BY MOUTH ON WEDNESDAY AND Wednesday09/30/2017 06/21/2019 Active - Ref: [id number] omeprazole 20 mg capsule,delayed release RxNorm: 598744 1 Capsule(s) PO daily 06/23/2017 07/22/2017 Inactive lisinopril 20 mg tablet RxNorm: 027220 1 Tablet(s) PO BID 04/2103/08/2018 Inactive Coreg 12.5 mg tablet RxNorm: 355325 1 Tablet(s) PO BID 201605/20/2017 Inactive Coreg 12.5 mg tablet RxNorm: 635046 1 Tablet(s) PO BID 201604/20/2017 Inactive Augmentin 500 mg-125 mg tablet RxNorm: 597566 1 Tablet(s) PO TID 04/14/2017 04/22/2017 Inactive Diflucan 150 mg tablet RxNorm: 914128 1 Tablet(s) PO daily 04/18/2017 Inactive Flomax 0.4 mg capsule RxNorm: 224686 Take 2 capsules by mouth daily 03/31/2017 09/29/2017 Inactive - First Attempt Ref: [id number] lisinopril 20 mg tablet RxNorm: 386895 1 Tablet(s) PO BID 03/1104/20/2017 Inactive Voltaren 1 % topical gel RxNorm: 895390 1 Application TOP BID as needed 03/09/2017 No Stop Date Active lisinopril 20 mg tablet RxNorm: 180043 2 Tablet(s) PO BID 02/2603/10/2017 Inactive cyclobenzaprine 5 mg tablet RxNorm: 028763 1 Tablet(s) PO TID as needed muscle spasms 02/24/2017 02/28/2017 Inactive warfarin 3 mg tablet RxNorm: 260963 1 Tablet(s) PO daily 201609/29/2017 Inactive lisinopril 20 mg tablet RxNorm: 507728 Take 2 tablets by mouth twice a day 09/22/2016 02/25/2017 Inactive - Ref: [id number] lisinopril 20 mg tablet RxNorm: 517403 1 Tablet(s) PO BID 05/0702/25/2017 Inactive First Attempt Coreg 25 mg tablet RxNorm: 317732 1 Tablet(s) PO BID 201502/23/[address] Reddy lisinopril 20 mg tablet RxNorm: 685182 1 Tablet(s) PO daily Take 2 tablets by mouth bid 05/07/2016 05/06/2016 Inactive First Attempt Flomax 0.4 mg capsule RxNorm: 837841 Take 2 capsules by mouth daily 03/15/2016 03/30/2017 Inactive - First Attempt lisinopril 20 mg tablet RxNorm: 227863 2 Tablet(s) PO BID Take 2 tablets by mouth bid 03/04/2016 05/06/2016 Inactive First Attempt lisinopril 20 mg tablet RxNorm: 108998 1 Tablet(s) PO BID Take 2 tablets by mouth daily 03/02/2016 03/03/2016 Inactive First Attempt Phenergan with Codeine Syrup RxNorm: 5 Milliliter(s) PO Q6 PRN 10/31/2015 No Stop Date Active Kenalog 40 mg/mL suspension for injection RxNorm: 9088859 Milliliter(s) Inj 10/31/2015 10/31/2015 Inactive warfarin 3 mg tablet RxNorm: 660017 Tablet(s) Take 1 tablet by mouth on tu,wed, ,sat and sun and 1 and 1/2 tablets by mouth on mon and wed10/31/2015 07/23/2016 Inactive Zithromax Z-[place] 250 mg tablet RxNorm: 363518 1 Tablet(s) PO UD 10/31/2015 11/04/2015 Inactive zpack Coreg 3.125 mg tablet RxNorm: 698428 1 Tablet(s) PO BID 201405/06/2016 Inactive warfarin 3 mg tablet RxNorm: 860123 Take 1 tablet by mouth on tues,wed,thur,sat and sun and 1 and 1/2 tablets by mouth on wed and wed06/05/2015 Inactive 2nd Attempt warfarin 3 mg tablet RxNorm: 794272 Tablet(s) Take 1 tablet by mouth on ,wed, thur,sat and sun and 1 and 1/2 tablets by mouth on wed and wed06/06/2015 10/30/2015 Inactive 2nd Attempt Flomax 0.4 mg capsule RxNorm: 514012 Take 2 capsules by mouth daily 04/29/2015 01/23/2016 Inactive First Attempt lisinopril 10 mg tablet RxNorm: 502097 Take 2 tablets by mouth daily 04/29/2015 01/23/2016 Inactive First Attempt warfarin 3 mg tablet RxNorm: 667616 one wed thur sat sun 4.5mg wednesday Tablet(s) PO daily 07/25/2014 06/05/2015 Inactive Flomax 0.4 mg capsule RxNorm: 793027 2 Capsule(s) PO daily 07/2504/28/2015 Inactive lisinopril 10 mg tablet RxNorm: 431587 2 Tablet(s) PO daily 04/28/2015 Inactive Coreg 3.125 mg tablet RxNorm: 278491 1 Tablet(s) PO BID 201306/18/2015 Inactive cephalexin 500 mg capsule RxNorm: 293472 1 Capsule(s) PO QID 10/30/2015 Inactive lisinopril 20 mg tablet RxNorm: 665652 1 Tablet(s) PO BID 11/1003/09/2014 Inactive Flomax 0.4 mg capsule RxNorm: 350227 2 Capsule(s) PO daily 10/1207/24/2014 Inactive Coreg 3.125 mg tablet RxNorm: 515729 1 Tablet(s) PO BID 201307/24/2014 Inactive lisinopril 10 mg tablet RxNorm: 873005 2 Tablet(s) PO daily 11/09/2013 Inactive warfarin 3 mg tablet RxNorm: 778407 one wedur sat sun 4.5mg wednesday Tablet(s) PO daily 10/12/2013 07/24/2014 Inactive o Flomax 0.4 mg capsule RxNorm: 652292 2 Capsule(s) PO daily 06/0510/11/2013 Inactive Zetia 10 mg tablet RxNorm: 321893 1 Tablet(s) PO daily 201205/15/2013 Inactive Zetia 10 mg tablet RxNorm: 020880 1 Tablet(s) PO daily 201209/12/2013 Inactive Carafate 100 mg/mL Oral Susp RxNorm: 472516 10 Milliliter(s) PO QID 05/10/2013 10/30/2015 Inactive dispense one month supply Flomax 0.4 mg capsule RxNorm: 085179 2 Capsule(s) PO daily 05/1006/04/2013 Inactive Carafate 100 mg/mL Oral Susp RxNorm: 905777 10 Milliliter(s) PO QID 02/23/2013 04/23/2013 Inactive dispense one month supply gabapentin 100 mg capsule RxNorm: 416028 1 Capsule(s) PO daily one at bedtime and one up to three times daily as needed for nerve pain in leg 01/16/2013 05/09/2013 Inactive gabapentin 100 mg capsule RxNorm: 692643 1 Capsule(s) PO daily one at bedtime and one up to three times daily as needed for nerve pain in leg 01/12/2013 01/15/2013 Inactive warfarin 3 mg tablet RxNorm: 179675 Tablet(s) PO 12/05/2012 10/11/2013 Inactive one wed thur sat4.5 mg wed lisinopril 10 mg tablet RxNorm: 435309 2 Tablet(s) PO daily 02/201306/27/2013 Inactive gabapentin 100 mg capsule RxNorm: 404551 1 Capsule(s) PO Q8 PRN one at bedtime and one up to three times daily as needed for nerve pain in leg 11/30/2012 01/11/2013 Inactive Coreg 3.125 mg tablet RxNorm: 662502 1 Tablet(s) PO BID 201201/07/2013 Inactive lisinopril 10 mg tablet RxNorm: 025007 1.5 Tablet(s) PO daily 11/09/2012 11/29/2012 Inactive Co Q-10 oral RxNorm: 38488 oral No Start Date Active famotidine 20 mg tablet RxNorm: 866294 1 Tablet(s) PO QAM No Start Date Active Coreg 12.5 mg tablet RxNorm: 378575 1 Tablet(s) PO BID No Start Date 04/20/2017 Inactive Voltaren 1 % topical gel RxNorm: 627054 1 Application TOP BID as needed No Start Date 03/08/2017 Inactive lisinopril 20 mg tablet RxNorm: 898086 1 Tablet(s) PO BID No Start Date 05/16/2018 Inactive warfarin 3 mg tablet RxNorm: 170897 Tablet(s) PO No Start Date 12/04/2012 Inactive one e thur sat4.5 mg wed Flomax 0.4 mg capsule RxNorm: 935465 1 Capsule(s) PO daily No Start Date 05/09/2013 Inactive niacin 500 mg tablet RxNorm: 869743 1 Tablet(s) PO daily No Start Date 03/01/2016 Inactive Medication Administered Medication Codes Instructions Start Date Status Kenalog 40 mg/mL suspension for injection RxNorm: 3695706 1Milliliter 10/06/2017 No longer Active Kenalog 40 mg/mL suspension for injection RxNorm: 2702060 Milliliter 10/31/2015 No longer Active Immunizations No [...] rhinitis ICD-10: J30.89 ICD-9: 477.8 10/06/2017 Other nursing home (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 ICD-10: Z79.899 ICD-9: V58.69 [...] maxillary sinusitis ICD-9: 461.0 ESSENTIAL HYPERTENSION SNOMED: 50523049 ICD-9: 401.9 11/10/2013 Encounter for long-term (current) [...] Code Item Item Code Result Date Pt Pda0169 PT 25.5 seconds 08/29/2018 Pt Upf0764 INR 2.4 08/29/2018 Pt Edq1808 Low Intensity - 1.5-2.0 08/29/2018 Pt Ipl5455 Mod intensity - 2.0-3.0 08/29/2018 Pt Hys6659 Hi intensity - 3.0-4.0 08/29/2018 Pt Nrw0646 PT 35.9 seconds 08/11/2018 Pt Cpp8611 INR 3.6 08/11/2018 Pt Sjr5841 Low Intensity - 1.5-2.0 08/11/2018 Pt Rhu3611 Mod intensity - 2.0-3.0 08/11/2018 Pt Ntc4273 Hi intensity - 3.0-4.0 08/11/2018 Pt Caw6003 PT 27.2 seconds 06/16/2018 Pt Xfx0301 INR 2.5 06/16/2018 Pt Vgb9497 Low Intensity - 1.5-2.0 06/16/2018 Pt Gjm9838 Mod intensity - 2.0-3.0 06/16/2018 Pt Olf5586 Hi intensity - 3.0-4.0 06/16/2018 Pt Jhk1725 PT 38.0 seconds 04/04/2018 Pt Shj1548 INR 3.8 04/04/2018 Pt Spn8161 Low Intensity - 1.5-2.0 04/04/2018 Pt Zvi7017 Mod intensity - 2.0-3.0 04/04/2018 Pt Gea5552 Hi intensity - 3.0-4.0 04/04/2018 Metabolic Ord15 [...] Magnesium Ord90 Mag 1.9 mg/dL 04/04/2018 Pt Cnj6706 PT 21.1 seconds 03/08/2018 Pt Vwx5814 INR 1.8 03/08/2018 Pt Dgw1947 Low Intensity - 1.5-2.0 03/08/2018 Pt Edh0765 Mod intensity - 2.0-3.0 03/08/2018 Pt Rdz1717 Hi intensity - 3.0-4.0 03/08/2018 Pt Heo2898 PT 37.2 seconds 02/23/2018 Pt Pdy3595 INR 3.7 02/23/2018 Pt Zqd0567 Low Intensity - 1.5-2.0 02/23/2018 Pt Hqz9800 Mod intensity - 2.0-3.0 02/23/2018 Pt Lvr4387 Hi intensity - 3.0-4.0 02/23/2018 Pt Vyr0458 PT 33.4 seconds 12/28/2017 Pt Rfo5757 INR 3.2 12/28/2017 Pt Mcn3692 Low Intensity - 1.5-2.0 12/28/2017 Pt Sgf1927 Mod intensity - 2.0-3.0 12/28/2017 Pt Fsa9714 Hi intensity - 3.0-4.0 12/28/2017 Pt Jax8249 PT 30.2 seconds 10/06/2017 Pt Pyw6093 INR 2.9 10/06/2017 Pt Ccr0456 Low Intensity - 1.5-2.0 10/06/2017 Pt Xlq6508 Mod intensity - 2.0-3.0 10/06/2017 Pt Yvv3385 Hi intensity - 3.0-4.0 10/06/2017 Pt Sbx9429 PT 33.3 seconds 06/23/2017 Pt Qyh2005 INR 3.2 06/23/2017 Pt Ixd8151 Low Intensity - 1.5-2.0 06/23/2017 Pt Rfv1704 Mod intensity - 2.0-3.0 06/23/2017 Pt Vxr1092 Hi intensity - 3.0-4.0 06/23/2017 Tsh Ord6 hTSH II 0.86 uIU/mL 02/24/2017 C-Reactive Protein Qnt Crqnt CRP 0.2 mg/dl 02/24/2017 Comp Metabolic Tum251 NA 139 mEq/L 02/24/2017 Comp Metabolic Psb617 K 3.9 mEq/L 02/24/2017 Comp Metabolic Snj807 CL 105 mEq/L 02/24/2017 Comp Metabolic Pwn495 CO2 27.0 mEq/L 02/24/2017 Comp Metabolic Fai531 ANION GAP 11 02/24/2017 Comp Metabolic Kok254 GLUCOSE 93 mg/dL 02/24/2017 Comp Metabolic Oay764 Creat 1.1 mg/dL 02/24/2017 Comp Metabolic Atn082 eGFR 73 ml/min/1.73m2 02/24/2017 Comp Metabolic Uwm811 BUN 14 mg/dL 02/24/2017 Comp Metabolic Uck863 B/C Ratio 13.1 Ratio 02/24/2017 Comp Metabolic Xnq397 CALCIUM 8.4 mg/dL 02/24/2017 Comp Metabolic Sfq958 ALK PHOS 89 U/L 02/24/2017 Comp Metabolic Gme435 AST(SGOT) 18 U/L 02/24/2017 Comp Metabolic Xwq973 ALT(SGPT) 21 U/L 02/24/2017 Comp Metabolic Pjj019 BILI T 0.5 mg/dL 02/24/2017 Comp Metabolic Kjb643 ALBUMIN 3.8 g/dL 02/24/2017 Comp Metabolic Dib099 TPRO 6.5 g/dL 02/24/2017 Comp Metabolic Ths058 GLOB 2.7 g/dL 02/24/2017 Comp Metabolic Vue650 A/G Ratio 1.4 Ratio 02/24/2017 Comp Metabolic Gwf354 Osmo 278 mOsmo 02/24/2017 Sed Rate Ord21 ESR 25 mm/hr 02/24/2017 Pt Vmg7745 PT 31.7 seconds 02/24/2017 Pt Fph1252 INR 3.3 02/24/2017 Pt Ofa3806 Low Intensity - 1.5-2.0 02/24/2017 Pt Lla9243 Mod intensity - 2.0-3.0 02/24/2017 Pt Uec5467 Hi intensity - 3.0-4.0 02/24/2017 Cbc With [...] 31.1 % 02/24/2017 Cbc With Differential Ord2 [place]% 9.7 % 02/24/2017 Cbc With Differential Ord2 [...] 2.62 K/ul 02/24/2017 Cbc With Differential Ord2 [place] ABS# 0.8 K/ul 02/24/2017 Cbc With Differential Ord2 Eos ABS# 0.2 K/ul 02/24/2017 Cbc With Differential Ord2 Baso ABS# 0.1 K/ul 02/24/2017 Pt Ihx3434 PT 22.4 seconds 12/28/2016 Pt Iaj3023 INR 2.1 12/28/2016 Pt Cno2920 Low Intensity - 1.5-2.0 12/28/2016 Pt Hhd8084 Mod intensity - 2.0-3.0 12/28/2016 Pt Ooc2661 Hi intensity - 3.0-4.0 12/28/2016 Pt Nrn3300 PT 30.2 seconds 11/26/2016 Pt Epj9687 INR 3.1 11/26/2016 Pt Qqn4831 Low Intensity - 1.5-2.0 11/26/2016 Pt Zll5630 Mod intensity - 2.0-3.0 11/26/2016 Pt Gyf8441 Hi intensity - 3.0-4.0 11/26/2016 Pt Kpd1152 PT 34.3 seconds 11/20/2016 Pt Atd4817 INR 3.7 11/20/2016 Pt Gbr8731 Low Intensity - 1.5-2.0 11/20/2016 Pt Zpw8807 Mod intensity - 2.0-3.0 11/20/2016 Pt Sbo5599 Hi intensity - 3.0-4.0 11/20/2016 Pt Uyy2374 PT 29.0 seconds 07/14/2016 Pt Fdg0175 INR 2.9 07/14/2016 Pt Hdf2369 Low Intensity - 1.5-2.0 07/14/2016 Pt Nwr0608 Mod intensity - 2.0-3.0 07/14/2016 Pt Xux2808 Hi intensity - 3.0-4.0 07/14/2016 Lipid Ord30 CHOL 236 mg/dL 07/14/2016 Lipid Ord30 HDL 36.0 mg/dl 07/14/2016 Lipid Ord30 TRIG 406 mg/dL 07/14/2016 Lipid Ord30 LDL Unable to calculate Due to elevated triglycerides mg/dL 07/14/2016 Lipid Ord30 C/HDL 6.6 Ratio 07/14/2016 Pt Xtq9110 PT 30.0 seconds 03/02/2016 Pt Nnp9664 INR 3.1 03/02/2016 Pt Yal4842 Low Intensity - 1.5-2.0 03/02/2016 Pt Dwe7453 Mod intensity - 2.0-3.0 03/02/2016 Pt Kkh9341 Hi intensity - 3.0-4.0 03/02/2016 %Hba1C Zst257 % HbA1c 27697-6 6.0 % 03/02/2016 %Hba1C Jcl292 Gluc Ave 126 mg/dL 03/02/2016 Tsh Ord6 hTSH II 0.68 uIU/mL 03/02/2016 Comp Metabolic Imz524 NA 140 mEq/L 03/02/2016 Comp Metabolic Wan503 K 4.1 mEq/L 03/02/2016 Comp Metabolic Icc422 CL 105 mEq/L 03/02/2016 Comp Metabolic Qzx502 CO2 29.0 mEq/L 03/02/2016 Comp Metabolic Ipa126 ANION GAP 10 03/02/2016 Comp Metabolic Pnu766 GLUCOSE 104 mg/dL 03/02/2016 Comp Metabolic Rxb471 Creat 1.0 mg/dL 03/02/2016 Comp Metabolic Bdy787 eGFR 77 ml/min/1.73m2 03/02/2016 Comp Metabolic Yaa955 BUN 15 mg/dL 03/02/2016 Comp Metabolic Dsh072 B/C Ratio 14.7 Ratio 03/02/2016 Comp Metabolic Oyf445 CALCIUM 8.9 mg/dL 03/02/2016 Comp Metabolic Ioh925 ALK PHOS 84 U/L 03/02/2016 Comp Metabolic Cjw604 AST(SGOT) 16 U/L 03/02/2016 Comp Metabolic Cxk897 ALT(SGPT) 17 U/L 03/02/2016 Comp Metabolic Zxh842 BILI T 0.5 mg/dL 03/02/2016 Comp Metabolic Mhz347 ALBUMIN 4.0 g/dL 03/02/2016 Comp Metabolic Gys959 TPRO 6.6 g/dL 03/02/2016 Comp Metabolic Jvx975 GLOB 2.6 g/dL 03/02/2016 Comp Metabolic Wuq410 A/G Ratio 1.5 Ratio 03/02/2016 Comp Metabolic Bsx218 Osmo 281 mOsmo 03/02/2016 Cbc With Differential [...] 29.3 pg 03/02/2016 Cbc With Differential Ord2 [place]% 8.1 % 03/02/2016 Cbc With Differential Ord2 [...] 2.29 K/ul 03/02/2016 Cbc With Differential Ord2 [place] ABS# 0.7 K/ul 03/02/2016 Cbc With Differential [...] 28.8 pg 10/31/2015 Cbc With Differential Ord2 [place]% 12.7 % 10/31/2015 Cbc With Differential Ord2 [...] 1.31 K/ul 10/31/2015 Cbc With Differential Ord2 [place] ABS# 0.7 K/ul 10/31/2015 Cbc With Differential [...] hTSH II 0.88 uIU/mL 10/31/2015 Comp Metabolic Pgt956 NA 135 mEq/L 10/31/2015 Comp Metabolic Dix770 K 4.2 mEq/L 10/31/2015 Comp Metabolic Zqm916 CL 99 mEq/L 10/31/2015 Comp Metabolic Hjz431 CO2 28.0 mEq/L 10/31/2015 Comp Metabolic Jcq780 ANION GAP 12 10/31/2015 Comp Metabolic Ppr977 GLUCOSE 107 mg/dL 10/31/2015 Comp Metabolic Zel824 Creat 1.2 mg/dL 10/31/2015 Comp Metabolic Vat212 eGFR 63 ml/min/1.73m2 10/31/2015 Comp Metabolic Atg013 BUN 12 mg/dL 10/31/2015 Comp Metabolic Poh682 B/C Ratio 9.9 Ratio 10/31/2015 Comp Metabolic Rzm391 CALCIUM 8.4 mg/dL 10/31/2015 Comp Metabolic Vzz694 ALK PHOS 134 U/L 10/31/2015 Comp Metabolic Txy282 AST(SGOT) 20 U/L 10/31/2015 Comp Metabolic Vcz919 ALT(SGPT) 16 U/L 10/31/2015 Comp Metabolic Ygs146 BILI T 0.4 mg/dL 10/31/2015 Comp Metabolic Erh715 ALBUMIN 4.2 g/dL 10/31/2015 Comp Metabolic Jgv516 TPRO 7.2 g/dL 10/31/2015 Comp Metabolic Tdq075 GLOB 3.1 g/dL 10/31/2015 Comp Metabolic Nfu953 A/G Ratio 1.4 Ratio 10/31/2015 Comp Metabolic Alu700 Osmo 270 mOsmo 10/31/2015 Total Psa Ord10 PSA 2.66 ng/mL 10/31/2015 %Hba1C Wws723 % HbA1c 52418-1 6.1 % 10/31/2015 %Hba1C Pof972 Gluc Ave 128 mg/dL 10/31/2015 Pt Wtg9339 PT 26.4 seconds 10/31/2015 Pt Sbp1035 INR 2.5 10/31/2015 Pt Rzb6812 Low Intensity - 1.5-2.0 10/31/2015 Pt Rsv3696 Mod intensity - 2.0-3.0 10/31/2015 Pt Ebp3347 Hi intensity - 3.0-4.0 10/31/2015 TSH 6681175 TSH 0.819 uIU/ML 11/10/2013 PT/MC 4640172 PRO TIME 24.5 SEC 11/10/2013 PT/MC 2519722 INR MCMC 2.3 11/10/2013 GFR CALC 9385009 GFR AA >60 ML/MIN 11/10/2013 GFR CALC 6275928 GFR NON-AA >60 ML/MIN 11/10/2013 CBC 3206721 WBC 8.4 10e9/L 11/10/2013 CBC 7935487 RBC 5.24 10e12/L 11/10/2013 CBC 8509422 HGB 15.4 g/dL 11/10/2013 CBC 2572342 HCT DET 43.8 % 11/10/2013 CBC 2222876 MCV 83.6 fL 11/10/2013 CBC 6261463 MCH 29.4 pg 11/10/2013 CBC 0594824 MCHC 35.2 g/dL 11/10/2013 CBC 7509734 PLT 250 10e9/L 11/10/2013 CBC 0241336 MPV 11.1 fL 11/10/2013 CBC 7951058 OANH % 58.1 % 11/10/2013 CBC 2272332 LY % 28.5 % 11/10/2013 CBC 5131109 MON % 10.2 % 11/10/2013 CBC 6975457 EOS % 2.1 % 11/10/2013 CBC 1036165 BASO % 1.1 % 11/10/2013 CBC 0657991 RDW 13.3 % 11/10/2013 CBC 1854330 ABS OANH 4.88 10e9/L 11/10/2013 CBC 0812823 ABS LYMPH 2.39 10e9/L 11/10/2013 CBC 5999971 ABS MONO 0.86 10e9/L 11/10/2013 CBC 7727064 ABS EOS 0.18 10e9/L 11/10/2013 CBC 9766146 ABS BASO 0.09 10e9/L 11/10/2013 CBC 1129969 RDW-SD 40.7 fL 11/10/2013 CHEM 14 9049543 AST 17 U/L 11/10/2013 CHEM 14 9958806 ALT 17 IU/L 11/10/2013 CHEM 14 9175648 BUN 15 MG/DL 11/10/2013 CHEM 14 0579875 ALBUMIN 4.3 GM/DL 11/10/2013 CHEM 14 0851750 CHLORIDE 103 MMOL/L 11/10/2013 CHEM 14 0096895 BILI TOT 0.6 MG/DL 11/10/2013 CHEM 14 3458508 ALK PHOS 104 U/L 11/10/2013 CHEM 14 2543017 SODIUM 137 MMOL/L 11/10/2013 CHEM 14 0188426 CREATININE 1.08 MG/DL 11/10/2013 CHEM 14 3173642 CALCIUM 8.9 MG/DL 11/10/2013 CHEM 14 9082668 POTASSIUM 4.0 MMOL/L 11/10/2013 CHEM 14 5059397 PROT TOT 7.0 GM/DL 11/10/2013 CHEM 14 0903530 GLUCOSE 84 MG/DL 11/10/2013 CHEM 14 5884195 BICARB 28 MMOL/L 11/10/2013 CHEM 14 1921100 ANION GAP 6 MEQ/L 11/10/2013 Review of [...] distress 05/10/2013 None Full Exam - General 1995 Constitutional general appearance Overall: well nourished 05/10/2013 None Full Exam - General 1994 Eyes pupils and irises Overall: pupils equal, round, reactive to light and accomodation 05/10/2013 None Full Exam - General 1995 [...] accomodation 02/23/2013 None Full Exam - General 1995 [...] atraumatic 11/30/2012 None Full Exam - General 1994 Musculoskeletal head and neck Overall: cervical spine benign 11/30/2012 None Full Exam - General 1994 Psychiatric orientation/consciousness Overall: oriented to person, place and time 11/30/2012 None Full Exam - General 1995 Psychiatric mood and affect Overall: normal mood [...] 11/09/2012 None Full Exam - General 1995 Integument inspection of skin Overall: no rash, lesions 11/09/2012 None Full Exam - General 1995 Neurologic deep tendon reflexes Overall: deep tendon reflexes intact 11/09/2012 None Full Exam - General 1995 Neurologic cranial nerves Overall: crainial nerves 2 - 12 grossly intact 11/09/2012 None Full Exam - General 1994 Psychiatric mood and affect Mood: happy 11/09/2012 None Full Exam - General 1995 Psychiatric mood and affect Overall: normal mood and affect 11/09/2012 None Full Exam - General 1995 Psychiatric [...] Procedure Codes Date THER/PROPH/DIAG INJ SC/IM CPT-4: 14517 10/06/2017 TRIAMCINOLONE ACET INJ NOS CPT-4: J3301 10/06/2017 THER/PROPH/DIAG INJ SC/IM CPT-4: 53215 10/31/2015 TRIAMCINOLONE ACET INJ NOS CPT-4: J3301 10/31/2015 ROUTINE VENIPUNCTURE CPT-4: 68240 11/10/2013 PRESCRIP TRANSMIT VIA ERX SY CPT-4: G8553 02/23/2013 PRESCRIP TRANSMIT VIA ERX SY CPT-4: G8553 11/30/2012 PRESCRIP TRANSMIT VIA ERX SY CPT-4: G8553 11/09/2012 Vital Signs Date Vital 04/15/2018 Blood Pressure 1: 150/88 Code : 8480-6 BMI: 28.1 Code : 60571-1 Heart Rate 1 : 84 bpm Height: 5'10" SpO2: 98% Weight: 196 lbs 12/01/2017 Blood Pressure 1: 154/78 Code : 8480-6 BMI: 28.4 Code : 55171-1 Heart Rate 1 : 87 bpm Height: 5'10" SpO2: 98% Weight: 198 lbs 10/06/2017 Blood Pressure 1: 136/74 Code : 8480-6 BMI: 38.0 Code : 39382-6 Heart Rate 1 : 75 bpm Height: 5' SpO2: 95% Temperature: 36.8 (C) / 98.2 (F) Weight: 194 lbs 8 oz 06/23/2017 Blood Pressure 1: 152/82 Code : 8480-6 BMI: 28.3 Code : 53253-6 Heart Rate 1 : 58 bpm Height: 5'10" SpO2: 96% Weight: 197 lbs 04/14/2017 Blood Pressure 1: 146/84 Code : 8480-6 BMI: 27.5 Code : 22276-1 Heart Rate 1 : 69 bpm Height: 5'10" SpO2: 95% Weight: 192 lbs 02/24/2017 Blood Pressure 1: 146/60 Code : 8480-6 BMI: 27.4 Code : 98395-3 Heart Rate 1 : 61 bpm Height: 5'10" SpO2: 97% Weight: 191 lbs 05/07/2016 Blood Pressure 1: 146/66 Code : 8480-6 BMI: 26.3 Code : 61406-0 Heart Rate 1 : 69 bpm Height: 5'10" SpO2: 97% Weight: 183 lbs 03/02/2016 Blood Pressure 1: 170/100 Code: 8480-6 Blood Pressure 1: 190/108 Code: 8480-6 BMI: 26.5 Code: 27474-3 Heart Rate 1: 76 bpm Height: 5'10" SpO2: 98% Weight: 185 lbs 10/31/2015 Blood Pressure 1: 126/86 Code : 8480-6 Blood Pressure 1: 142/90 Code: 8480-6 BMI: 26.8 Code: 01789-6 Heart Rate 1: 99 bpm Height: 5'10" SpO2: 95% Temperature: 37.0 (C) / 98.6 (F) Weight: 187 lbs 01/25/2014 Blood Pressure 1: 180/90 Code : 8480-6 BMI: 26.3 Code : 21346-2 Heart Rate 1 : 76 bpm Height: [...] Code : 8480-6 BMI: 25.7 Code : 39672-7 Heart Rate 1 : 84 bpm Height: 5'10" Weight: 179 lbs 02/23/2013 Blood Pressure 1: 138/90 Code : 8480-6 BMI: 27.0 Code : 56616-2 Heart Rate 1 : 88 bpm Height: 5'10" Temperature: 37.0 (C) / 98.6 (F) Weight: 188 lbs 01/12/2013 Blood Pressure 1: 136/78 Code : 8480-6 BMI: 26.7 Code : 88507-7 Heart Rate 1 : 96 bpm Height: 5'10" Weight: 186 lbs 11/30/2012 Blood Pressure 1: 170/90 Code : 8480-6 BMI: 26.8 Code : 50676-4 Heart Rate 1 : 80 bpm Height: 5'10" Weight: 187 lbs 11/09/2012 Blood Pressure 1: 178/84 Code : 8480-6 BMI: 26.5 Code : 67497-1 Heart Rate 1 : 86 bpm Height: [...] pain Quality recurrent 05/10/2013 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 PATIENT, LEVEL IV Diagnosis: Other acute sinusitis[ICD10: J01.80] Diagnosis: Other allergic rhinitis[ICD10: J30.89] Diagnosis: Other director voice (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[ICD10: Z79.899] Gayle Fajardo MD, [facility] CPT-4: 94958 10/06/2017 [id number] EST. PATIENT, LEVEL IV Diagnosis: Gastro-esophageal reflux disease without esophagitis[ICD10: K21.9] Diagnosis: Pain in right elbow[ICD10: M25.521] Diagnosis: Other nursing home (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[ICD10: Z79.899] Gayle Fajardo MD, [facility] CPT-4: 75550 06/23/2017 [id number] EST. PATIENT, LEVEL IV Diagnosis: Other conditions associated with Lyme disease[ICD10: A69.29] Diagnosis: Other dorsalgia[ICD10: M54.89] Gayle Fajardo MD, [facility] CPT-4 : 24874 04/14/2017 [id number] EST. PATIENT, LEVEL IV Diagnosis: Pain in left elbow[ICD10: M25.522] Diagnosis: Pain in right elbow[ICD10: M25.521] Diagnosis: Pain in joints of left hand[ICD10: M25.542] Diagnosis: Pain in joints of right hand[ICD10: M25.541] Diagnosis: Other fatigue[ICD10: R53.83] Diagnosis: Other nursing home (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[ICD10: Z79.899] Gayle Fajardo MD, [facility] CPT-4: 42457 02/24/2017 ([id number]) 41622 EST. PATIENT, LEVEL III Diagnosis: Essential (primary) hypertension[ICD10: I10] Jennifer Fajardo MD, [facility] CPT-4: 35885 05/07/2016 ([id number]) 69330 EST. PATIENT, LEVEL IV Diagnosis: Essential (primary) hypertension[ICD10: I10] Diagnosis: Impaired fasting glucose[ICD10: R73.01] Diagnosis: Other nursing home (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[ICD10: Z79.899] Jennifer Fajardo MD, [facility] CPT-4: 73535 03/02/2016 ([id number]) 84362 EST. PATIENT, LEVEL IV Diagnosis: Essential (primary) hypertension[ICD10: I10] Diagnosis: Mixed hyperlipidemia[ICD10: E78.2] Diagnosis: Other director voice (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[ICD10: Z79.899] Diagnosis: Impaired fasting glucose[ICD10: R73.01] Diagnosis: Acute recurrent maxillary sinusitis[ICD10: J01.01] [facility] CPT-4: 67080 10/31/2015 ([id number]) 07766 EST. PATIENT, LEVEL III Diagnosis: CELLULITIS[ICD9: 682.9] [facility] CPT-4: 56342 01/25/2014 ([id number]) 91011 EST. PATIENT, LEVEL III Diagnosis: Acute maxillary sinusitis[ICD9: 461.0] Diagnosis: Cough[ICD9: 786.2] Mahnaz Fajardo MD [facility] CPT-4: 68653 11/29/2013 ([id number]) 18728 EST. PATIENT, LEVEL III Diagnosis: ESSENTIAL HYPERTENSION[SNOMED: 38546105] Diagnosis: Encounter for long-term (current) use of other high-risk medications[ ICD9: V58.69] GIAN Mazariegos MD CPT-4: 34844 11/10/2013 ([id number]) 72138 EST. PATIENT, LEVEL IV Diagnosis: ESSENTIAL HYPERTENSION[SNOMED: 65790389] Diagnosis: HYPERLIPIDEMIA[ICD9: 272.4] Mahnaz Fajardo MD [facility] CPT- 4: 22800 05/10/2013 ([id number]) 74713 EST. PATIENT, LEVEL III Diagnosis: Esophageal reflux[ICD9: 530.81] Diagnosis: Sore throat[ICD9: 462] Diagnosis: Allergic rhinitis[ICD9: 477.9] Mahnaz Fajardo MD [facility] CPT- 4: 61773 02/23/2013 ([id number]) 89058 EST. PATIENT, LEVEL III Diagnosis: ESSENTIAL HYPERTENSION[SNOMED: 37000610] Diagnosis: HYPERLIPIDEMIA[ICD9: 272.4] Mahnaz Fajardo MD [facility] CPT- 4: 09959 01/12/2013 ([id number]) 56912 EST. 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 04/15/2018 [facility]ment[facility] ([facility] min) Moderate 04/15/2018 Patient Education: Patient Medication Summary Completed 04/15/2018 Referral: [phone] [facility] Referral Initiated 12/16/2017 Visit Plan: Hypertension [...] Dr. Hdez 12/01/2017 Appointment: Gayle Morris WPtel: [facility] (30 min) Complex 12/01/2017 Patient Education: Patient Medication Summary Completed 12/01/2017 Care Plan: Referral Order SNOMED-CT : 304758114 Pending 12/01/2017 Visit Plan: Sinusitis - Pt [...] allergy spray. 10/06/2017 Appointment: Gayle Morris WPtel: [facility] (30 min) Complex 10/06/2017 Patient Education: Patient Medication Summary Completed 10/06/2017 Care Plan: Pt Approved 10/06/2017 Referral: Kobe Benjamin [address] [facility] Referral Initiated 07/06/2017 Visit Plan: Esophageal [...] not improve. 06/23/2017 Appointment: Gayle Morris WPtel: [facility] [address] (30 min) Complex 06/23/2017 Patient Education: Patient Medication Summary Completed 06/23/2017 Care Plan: Referral Order SNOMED-CT : 088708289 Pending 06/23/2017 Visit Plan: Back pain, lyme [...] Pain Completed 04/14/2017 Appointment: Gayle Morris WPtel: [facility] (30 min) Complex 04/13/2017 Visit Plan: Joint pain, back pain - will check labs - The pt is to use prn antiinflammatories to manage acute pain. The patient is to call the office if the pain is worsening or does not improve. 02/24/2017 Appointment: Gayle Morris WPtel: [facility] [place] (30 min) Complex 02/24/2017 Patient Education: Patient Medication Summary Completed 02/24/2017 Patient Education: Patient Medication Summary Completed 11/20/2016 Care Plan: Pt Pending 11/20/2016 Appointment: Jennifer Perez WPtel: [facility]5 [phone] [place] (30 min) Complex 11/05/2016 Visit Plan: Hypertension - well controlled - continue with current medications, continue with no added salt diet. Pt has been encouraged to exercise daily. The pt has been advised to call the office if there are any acute concerns about change in blood pressure readings at home. 05/07/2016 Appointment: Jennifer Perez WPtel[phone] [place] (30 min) Complex 05/07/2016 Patient Education: Patient [...] 03/02/2016 Care Plan: Referral Order SNOMED-CT : 138965902 Pending 03/02/2016 Visit Plan: Hypertension - well [...] of pressure. 01/25/2014 Appointment: Mahnaz Fajardo WPtel: [facility] Other 01/25/2014 Patient Education: Patient Medication Summary Completed 01/25/2014 Appointment: Mahnaz Fajardo WPtel: [facility] Sick 11/29/2013 Patient Education: Patient Medication Summary [...] Coumadin-check PT/INR 11/10/2013 Appointment: Jennifer Perez WPtel: [phone] Follow up 11/10/2013 Patient Education: Patient Medication Summary Completed 11/10/2013 Patient Education: Hypertension Completed 11/10/2013 Appointment: Mahnaz Fajardo WPtel: [facility]5 [facility] Follow up 11/08/2013 Visit Plan: Hypertension - [...] to medications. 05/10/2013 Appointment: Mahnaz Fajardo WPtel: [facility]5 [facility] Follow up 05/10/2013 Patient Education: Patient Medication Summary Completed 05/10/2013 Patient Education: Hypertension Completed 05/10/2013 Appointment: Mahnaz Fajardo WPtel: [address] [place], [place] [phone] Sick 02/24/2013 Visit Plan: Esophageal Reflux - [...] one month. 01/12/2013 Appointment: Mahnaz Fajardo WPtel: [address] [place], [place] [phone] Follow up 01/12/2013 Patient Education: Patient Medication Summary Completed 01/12/2013 Patient Education: Hypertension Completed 01/12/2013 Appointment: Mahnaz Fajardo WPtel: [facility] Follow up 01/11/2013 Visit Plan: Nerve pain [...] to assure normal liver response to medications. [place] Kr[employer] oil twice daily 11/30/2012 Appointment: Mahnaz Fajardo WPtel: [address] [place], [place] [id number] Follow up 11/30/2012 Patient Education: Patient Medication [...] arthritis. 11/09/2012 Appointment: [facility]el[facility] [phone] [facility] New Patient 11/09/2012 Patient Education: Patient Medication Summary Completed 11/09/2012 Patient Education: Hypertension Completed 11/09/2012 Referral: Kobe Benjamin [address] [facility] Referral Initiated Referral: Fernando Hdez WPtel: [address] [id number] Referral Initiated Referral: Opal Reddy Referral Appointment Requested Instructions Comment I would like to check a tick panel for Piru Spotted Fever - I will give you a script for the blood draw let me know where you get it done so we can look for results. I would like to start doxycycline - I can send augmentin for you to start, but the only treatment for Piru Spotted Fever is Doxycycline. Massage from [facility] [...] pain is worsening or does not improve. tiger balm over the counter. Joint pain, [...] Hyperlipidemia - check lipids in one month. . Hypertension - well controlled - continue [...] home, call in with report of pressure. Continue lisinopril 20mg BID for a total [...] change in blood pressure readings at home. Renal artery stenosis - pt to see [...] Zuniga for hip pain - suspect arthritis. [place] Krill oil twice daily increase the [...] to assure normal liver response to medications. [place] Krill oil twice daily . Sinusitis - Pt has acute infection [...]
--- OUTSIDE RECORDS SUMMARY | 2018-11-11 10:13 | XMS REPORT | CCD ---
Author Author Mahnaz Fajardo Organization Mahnaz Fajardo MD, [facility] Address [address] [place] [address] Phone Care Team Providers Care Butter Printer Name Role Phone PP Unavailable CCM Unavailable Summary Purpose Interface Exchange Insurance Providers Payer name Policy type / Coverage type Covered libertarian ID Effective Begin Date Effective End Date [employer] Solutions Medicare Part B [id number] 2016 Unknown Family history Mother Diagnosis Age At Onset Stroke Unknown Father Diagnosis Age At Onset Hypertension Unknown Sister Diagnosis Age At Onset Hypertension Unknown Social History Social History Element Codes Description Effective Dates Marital status Unknown 11/09/[address]: 7220147 Former smoker quit 1988 11/09/2012 Allergies, Adverse [...] 477.8 ICD-10: J30.89 Active 10/06/2017 Unknown Other moth exterminator (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 ICD-9: V58.69 ICD-10: Z79.899 [...] Fill Instructions lisinopril 20 mg tablet RxNorm: 493475 1 Tablet(s) PO BID 05/1708/09/2019 Active Augmentin 500 mg-125 mg tablet RxNorm: 835728 1 Tablet(s) PO TID 04/29/2018 05/08/2018 Inactive Diflucan 150 mg tablet RxNorm: 122009 1 Tablet(s) PO daily 11/201705/03/2018 Inactive lisinopril 40 mg tablet RxNorm: 049173 1/2 Tablet(s) PO BID 03/03/2019 Active change from lisinopril 20 BID lisinopril 40 mg tablet RxNorm: 143505 1/2 Tablet(s) PO BID 03/08/2018 Inactive Coreg 12.5 mg tablet RxNorm: 214341 TAKE 1 TABLET BY MOUTH TWO TIMES DAILY 02/23/2018 08/21/2018 Active - Ref: [id number] amoxicillin 500 mg capsule RxNorm: 539367 1 Capsule(s) PO TID 10/19/2017 10/28/2017 Inactive amoxicillin 500 mg capsule RxNorm: 914859 1 Capsule(s) PO TID 10/19/2017 10/18/2017 Inactive Kenalog 40 mg/mL suspension for injection RxNorm: 9602776 1 Milliliter(s) Inj 10/06/2017 10/06/2017 Inactive Zithromax Z-[place] 250 mg tablet RxNorm: 695845 1 Tablet(s) PO UD 10/06/2017 02/22/2018 Inactive Flomax 0.4 mg capsule RxNorm: 263896 TAKE 2 CAPSULES BY MOUTH DAILY 09/30/2017 12/23/2018 Active - Ref: [id number] warfarin 3 mg tablet RxNorm: 035376 TAKE 1 TABLET BY MOUTH ON WEDNESDAY , WEDNESDAY , WEDNESDAY,WEDNESDAY, WEDNESDAY THEN 1 AND 1/2 TABLETS BY MOUTH ON WEDNESDAY AND Wednesday09/30/2017 06/21/2019 Active - Ref: [id number] omeprazole 20 mg capsule,delayed release RxNorm: 556012 1 Capsule(s) PO daily 06/23/2017 07/22/2017 Inactive lisinopril 20 mg tablet RxNorm: 144703 1 Tablet(s) PO BID 04/2103/08/2018 Inactive Coreg 12.5 mg tablet RxNorm: 558703 1 Tablet(s) PO BID 201605/20/2017 Inactive Coreg 12.5 mg tablet RxNorm: 381208 1 Tablet(s) PO BID 201604/20/2017 Inactive Augmentin 500 mg-125 mg tablet RxNorm: 926450 1 Tablet(s) PO TID 04/14/2017 04/22/2017 Inactive Diflucan 150 mg tablet RxNorm: 077835 1 Tablet(s) PO daily 04/18/2017 Inactive Flomax 0.4 mg capsule RxNorm: 428079 Take 2 capsules by mouth daily 03/31/2017 09/29/2017 Inactive - First Attempt Ref: [id number] lisinopril 20 mg tablet RxNorm: 599548 1 Tablet(s) PO BID 03/1104/20/2017 Inactive Voltaren 1 % topical gel RxNorm: 333870 1 Application TOP BID as needed 03/09/2017 No Stop Date Active lisinopril 20 mg tablet RxNorm: 179888 2 Tablet(s) PO BID 02/2603/10/2017 Inactive cyclobenzaprine 5 mg tablet RxNorm: 727754 1 Tablet(s) PO TID as needed muscle spasms 02/24/2017 02/28/2017 Inactive warfarin 3 mg tablet RxNorm: 992968 1 Tablet(s) PO daily 201609/29/2017 Inactive lisinopril 20 mg tablet RxNorm: 480775 Take 2 tablets by mouth twice a day 09/22/2016 02/25/2017 Inactive - Ref: [id number] lisinopril 20 mg tablet RxNorm: 323765 1 Tablet(s) PO BID 05/0702/25/2017 Inactive First Attempt Coreg 25 mg tablet RxNorm: 245606 1 Tablet(s) PO BID 201502/23/[address] Reddy lisinopril 20 mg tablet RxNorm: 648598 1 Tablet(s) PO daily Take 2 tablets by mouth bid 05/07/2016 05/06/2016 Inactive First Attempt Flomax 0.4 mg capsule RxNorm: 813187 Take 2 capsules by mouth daily 03/15/2016 03/30/2017 Inactive - First Attempt lisinopril 20 mg tablet RxNorm: 080127 2 Tablet(s) PO BID Take 2 tablets by mouth bid 03/04/2016 05/06/2016 Inactive First Attempt lisinopril 20 mg tablet RxNorm: 782098 1 Tablet(s) PO BID Take 2 tablets by mouth daily 03/02/2016 03/03/2016 Inactive First Attempt Phenergan with Codeine Syrup RxNorm: 5 Milliliter(s) PO Q6 PRN 10/31/2015 No Stop Date Active Kenalog 40 mg/mL suspension for injection RxNorm: 0527741 Milliliter(s) Inj 10/31/2015 10/31/2015 Inactive warfarin 3 mg tablet RxNorm: 169324 Tablet(s) Take 1 tablet by mouth on tu,wed, ,sat and sun and 1 and 1/2 tablets by mouth on mon and wed10/31/2015 07/23/2016 Inactive Zithromax Z-[place] 250 mg tablet RxNorm: 138461 1 Tablet(s) PO UD 10/31/2015 11/04/2015 Inactive zpack Coreg 3.125 mg tablet RxNorm: 537200 1 Tablet(s) PO BID 201405/06/2016 Inactive warfarin 3 mg tablet RxNorm: 780666 Take 1 tablet by mouth on tues,wed,thur,sat and sun and 1 and 1/2 tablets by mouth on wed and wed06/05/2015 Inactive 2nd Attempt warfarin 3 mg tablet RxNorm: 694888 Tablet(s) Take 1 tablet by mouth on ,wed, thur,sat and sun and 1 and 1/2 tablets by mouth on wed and wed06/06/2015 10/30/2015 Inactive 2nd Attempt Flomax 0.4 mg capsule RxNorm: 553682 Take 2 capsules by mouth daily 04/29/2015 01/23/2016 Inactive First Attempt lisinopril 10 mg tablet RxNorm: 854928 Take 2 tablets by mouth daily 04/29/2015 01/23/2016 Inactive First Attempt warfarin 3 mg tablet RxNorm: 249351 one wed thur sat sun 4.5mg wednesday Tablet(s) PO daily 07/25/2014 06/05/2015 Inactive Flomax 0.4 mg capsule RxNorm: 290218 2 Capsule(s) PO daily 07/2504/28/2015 Inactive lisinopril 10 mg tablet RxNorm: 348626 2 Tablet(s) PO daily 04/28/2015 Inactive Coreg 3.125 mg tablet RxNorm: 239414 1 Tablet(s) PO BID 201306/18/2015 Inactive cephalexin 500 mg capsule RxNorm: 577029 1 Capsule(s) PO QID 10/30/2015 Inactive lisinopril 20 mg tablet RxNorm: 208808 1 Tablet(s) PO BID 11/1003/09/2014 Inactive Flomax 0.4 mg capsule RxNorm: 255542 2 Capsule(s) PO daily 10/1207/24/2014 Inactive Coreg 3.125 mg tablet RxNorm: 160659 1 Tablet(s) PO BID 201307/24/2014 Inactive lisinopril 10 mg tablet RxNorm: 667106 2 Tablet(s) PO daily 11/09/2013 Inactive warfarin 3 mg tablet RxNorm: 473446 one wedur sat sun 4.5mg wednesday Tablet(s) PO daily 10/12/2013 07/24/2014 Inactive o Flomax 0.4 mg capsule RxNorm: 633338 2 Capsule(s) PO daily 06/0510/11/2013 Inactive Zetia 10 mg tablet RxNorm: 519661 1 Tablet(s) PO daily 201205/15/2013 Inactive Zetia 10 mg tablet RxNorm: 480840 1 Tablet(s) PO daily 201209/12/2013 Inactive Carafate 100 mg/mL Oral Susp RxNorm: 542465 10 Milliliter(s) PO QID 05/10/2013 10/30/2015 Inactive dispense one month supply Flomax 0.4 mg capsule RxNorm: 036084 2 Capsule(s) PO daily 05/1006/04/2013 Inactive Carafate 100 mg/mL Oral Susp RxNorm: 119419 10 Milliliter(s) PO QID 02/23/2013 04/23/2013 Inactive dispense one month supply gabapentin 100 mg capsule RxNorm: 707205 1 Capsule(s) PO daily one at bedtime and one up to three times daily as needed for nerve pain in leg 01/16/2013 05/09/2013 Inactive gabapentin 100 mg capsule RxNorm: 105236 1 Capsule(s) PO daily one at bedtime and one up to three times daily as needed for nerve pain in leg 01/12/2013 01/15/2013 Inactive warfarin 3 mg tablet RxNorm: 965023 Tablet(s) PO 12/05/2012 10/11/2013 Inactive one wed thur sat4.5 mg wed lisinopril 10 mg tablet RxNorm: 086954 2 Tablet(s) PO daily 02/201306/27/2013 Inactive gabapentin 100 mg capsule RxNorm: 276679 1 Capsule(s) PO Q8 PRN one at bedtime and one up to three times daily as needed for nerve pain in leg 11/30/2012 01/11/2013 Inactive Coreg 3.125 mg tablet RxNorm: 242531 1 Tablet(s) PO BID 201201/07/2013 Inactive lisinopril 10 mg tablet RxNorm: 745128 1.5 Tablet(s) PO daily 11/09/2012 11/29/2012 Inactive Co Q-10 oral RxNorm: 27083 oral No Start Date Active famotidine 20 mg tablet RxNorm: 260049 1 Tablet(s) PO QAM No Start Date Active Coreg 12.5 mg tablet RxNorm: 158795 1 Tablet(s) PO BID No Start Date 04/20/2017 Inactive Voltaren 1 % topical gel RxNorm: 748897 1 Application TOP BID as needed No Start Date 03/08/2017 Inactive lisinopril 20 mg tablet RxNorm: 532758 1 Tablet(s) PO BID No Start Date 05/16/2018 Inactive warfarin 3 mg tablet RxNorm: 751276 Tablet(s) PO No Start Date 12/04/2012 Inactive one e thur sat4.5 mg wed Flomax 0.4 mg capsule RxNorm: 895506 1 Capsule(s) PO daily No Start Date 05/09/2013 Inactive niacin 500 mg tablet RxNorm: 964212 1 Tablet(s) PO daily No Start Date 03/01/2016 Inactive Medication Administered Medication Codes Instructions Start Date Status Kenalog 40 mg/mL suspension for injection RxNorm: 1261049 1Milliliter 10/06/2017 No longer Active Kenalog 40 mg/mL suspension for injection RxNorm: 5840314 Milliliter 10/31/2015 No longer Active Immunizations No [...] rhinitis ICD-10: J30.89 ICD-9: 477.8 10/06/2017 Other moth exterminator (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 ICD-10: Z79.899 ICD-9: V58.69 [...] maxillary sinusitis ICD-9: 461.0 ESSENTIAL HYPERTENSION SNOMED: 87322285 ICD-9: 401.9 11/10/2013 Encounter for long-term (current) [...] Code Item Item Code Result Date Pt Tzm8472 PT 35.9 seconds 08/11/2018 Pt Ztd8645 INR 3.6 08/11/2018 Pt Zzm1694 Low Intensity - 1.5-2.0 08/11/2018 Pt Wru2083 Mod intensity - 2.0-3.0 08/11/2018 Pt Kho7076 Hi intensity - 3.0-4.0 08/11/2018 Pt Vnr0649 PT 27.2 seconds 06/16/2018 Pt Hyx0419 INR 2.5 06/16/2018 Pt Lvl0434 Low Intensity - 1.5-2.0 06/16/2018 Pt Psj5605 Mod intensity - 2.0-3.0 06/16/2018 Pt Nun3842 Hi intensity - 3.0-4.0 06/16/2018 Pt Hrs5614 PT 38.0 seconds 04/04/2018 Pt Yay7995 INR 3.8 04/04/2018 Pt Tfw3385 Low Intensity - 1.5-2.0 04/04/2018 Pt Phb3815 Mod intensity - 2.0-3.0 04/04/2018 Pt Lpk7552 Hi intensity - 3.0-4.0 04/04/2018 Metabolic Ord15 [...] Magnesium Ord90 Mag 1.9 mg/dL 04/04/2018 Pt Hcv8999 PT 21.1 seconds 03/08/2018 Pt Vju8841 INR 1.8 03/08/2018 Pt Iry4425 Low Intensity - 1.5-2.0 03/08/2018 Pt Rvc3511 Mod intensity - 2.0-3.0 03/08/2018 Pt Oho7567 Hi intensity - 3.0-4.0 03/08/2018 Pt Ezt4266 PT 37.2 seconds 02/23/2018 Pt Kft3861 INR 3.7 02/23/2018 Pt Zcn5927 Low Intensity - 1.5-2.0 02/23/2018 Pt Kfp7551 Mod intensity - 2.0-3.0 02/23/2018 Pt Owl8742 Hi intensity - 3.0-4.0 02/23/2018 Pt Vmd1927 PT 33.4 seconds 12/28/2017 Pt Pjb8414 INR 3.2 12/28/2017 Pt Iac5472 Low Intensity - 1.5-2.0 12/28/2017 Pt Hiz5816 Mod intensity - 2.0-3.0 12/28/2017 Pt Rtx2212 Hi intensity - 3.0-4.0 12/28/2017 Pt Lnq4783 PT 30.2 seconds 10/06/2017 Pt Nyg2162 INR 2.9 10/06/2017 Pt Yae4335 Low Intensity - 1.5-2.0 10/06/2017 Pt Vbl6931 Mod intensity - 2.0-3.0 10/06/2017 Pt Sev2604 Hi intensity - 3.0-4.0 10/06/2017 Pt Mup4310 PT 33.3 seconds 06/23/2017 Pt Whr5271 INR 3.2 06/23/2017 Pt Oiq4516 Low Intensity - 1.5-2.0 06/23/2017 Pt Mww6331 Mod intensity - 2.0-3.0 06/23/2017 Pt Gmp0027 Hi intensity - 3.0-4.0 06/23/2017 Tsh Ord6 hTSH II 0.86 uIU/mL 02/24/2017 C-Reactive Protein Qnt Crqnt CRP 0.2 mg/dl 02/24/2017 Comp Metabolic Vuf584 NA 139 mEq/L 02/24/2017 Comp Metabolic Tpd766 K 3.9 mEq/L 02/24/2017 Comp Metabolic Bru238 CL 105 mEq/L 02/24/2017 Comp Metabolic Pvg241 CO2 27.0 mEq/L 02/24/2017 Comp Metabolic Osf065 ANION GAP 11 02/24/2017 Comp Metabolic Gkw975 GLUCOSE 93 mg/dL 02/24/2017 Comp Metabolic Gde248 Creat 1.1 mg/dL 02/24/2017 Comp Metabolic Ioq566 eGFR 73 ml/min/1.73m2 02/24/2017 Comp Metabolic Vjk488 BUN 14 mg/dL 02/24/2017 Comp Metabolic Miy009 B/C Ratio 13.1 Ratio 02/24/2017 Comp Metabolic Lsm921 CALCIUM 8.4 mg/dL 02/24/2017 Comp Metabolic Mrg654 ALK PHOS 89 U/L 02/24/2017 Comp Metabolic Sqs781 AST(SGOT) 18 U/L 02/24/2017 Comp Metabolic Hmt539 ALT(SGPT) 21 U/L 02/24/2017 Comp Metabolic Dfq109 BILI T 0.5 mg/dL 02/24/2017 Comp Metabolic Kym114 ALBUMIN 3.8 g/dL 02/24/2017 Comp Metabolic Qru564 TPRO 6.5 g/dL 02/24/2017 Comp Metabolic Har779 GLOB 2.7 g/dL 02/24/2017 Comp Metabolic Heo593 A/G Ratio 1.4 Ratio 02/24/2017 Comp Metabolic Nac178 Osmo 278 mOsmo 02/24/2017 Sed Rate Ord21 ESR 25 mm/hr 02/24/2017 Pt Ihg4121 PT 31.7 seconds 02/24/2017 Pt Xzl3009 INR 3.3 02/24/2017 Pt Xrc2361 Low Intensity - 1.5-2.0 02/24/2017 Pt Tns5452 Mod intensity - 2.0-3.0 02/24/2017 Pt Fah1555 Hi intensity - 3.0-4.0 02/24/2017 Cbc With [...] 31.1 % 02/24/2017 Cbc With Differential Ord2 [place]% 9.7 % 02/24/2017 Cbc With Differential Ord2 [...] 2.62 K/ul 02/24/2017 Cbc With Differential Ord2 [place] ABS# 0.8 K/ul 02/24/2017 Cbc With Differential Ord2 Eos ABS# 0.2 K/ul 02/24/2017 Cbc With Differential Ord2 Baso ABS# 0.1 K/ul 02/24/2017 Pt Nwk6423 PT 22.4 seconds 12/28/2016 Pt Euz7413 INR 2.1 12/28/2016 Pt Vve2210 Low Intensity - 1.5-2.0 12/28/2016 Pt Txp5708 Mod intensity - 2.0-3.0 12/28/2016 Pt Fcs9881 Hi intensity - 3.0-4.0 12/28/2016 Pt Siv5011 PT 30.2 seconds 11/26/2016 Pt Cpf8725 INR 3.1 11/26/2016 Pt Lrl9550 Low Intensity - 1.5-2.0 11/26/2016 Pt Lzs4873 Mod intensity - 2.0-3.0 11/26/2016 Pt Ijy5396 Hi intensity - 3.0-4.0 11/26/2016 Pt Rch7618 PT 34.3 seconds 11/20/2016 Pt Fpx1451 INR 3.7 11/20/2016 Pt Flw3791 Low Intensity - 1.5-2.0 11/20/2016 Pt Ral0563 Mod intensity - 2.0-3.0 11/20/2016 Pt Dpo1186 Hi intensity - 3.0-4.0 11/20/2016 Pt Hyq4216 PT 29.0 seconds 07/14/2016 Pt Luy2207 INR 2.9 07/14/2016 Pt Nte8651 Low Intensity - 1.5-2.0 07/14/2016 Pt Xxf3096 Mod intensity - 2.0-3.0 07/14/2016 Pt Upd6720 Hi intensity - 3.0-4.0 07/14/2016 Lipid Ord30 CHOL 236 mg/dL 07/14/2016 Lipid Ord30 HDL 36.0 mg/dl 07/14/2016 Lipid Ord30 TRIG 406 mg/dL 07/14/2016 Lipid Ord30 LDL Unable to calculate Due to elevated triglycerides mg/dL 07/14/2016 Lipid Ord30 C/HDL 6.6 Ratio 07/14/2016 %Hba1C Hkg130 % HbA1c 96974-6 6.0 % 03/02/2016 %Hba1C Pur636 Gluc Ave 126 mg/dL 03/02/2016 Tsh Ord6 hTSH II 0.68 uIU/mL 03/02/2016 Comp Metabolic Xvx084 NA 140 mEq/L 03/02/2016 Comp Metabolic Nhr350 K 4.1 mEq/L 03/02/2016 Comp Metabolic Ntc298 CL 105 mEq/L 03/02/2016 Comp Metabolic Bqn389 CO2 29.0 mEq/L 03/02/2016 Comp Metabolic Kqm465 ANION GAP 10 03/02/2016 Comp Metabolic Wnr710 GLUCOSE 104 mg/dL 03/02/2016 Comp Metabolic Jyf565 Creat 1.0 mg/dL 03/02/2016 Comp Metabolic Qmg537 eGFR 77 ml/min/1.73m2 03/02/2016 Comp Metabolic Aeu152 BUN 15 mg/dL 03/02/2016 Comp Metabolic Xsw194 B/C Ratio 14.7 Ratio 03/02/2016 Comp Metabolic Zjo676 CALCIUM 8.9 mg/dL 03/02/2016 Comp Metabolic Tsy427 ALK PHOS 84 U/L 03/02/2016 Comp Metabolic Qji924 AST(SGOT) 16 U/L 03/02/2016 Comp Metabolic Vtu417 ALT(SGPT) 17 U/L 03/02/2016 Comp Metabolic Mbf907 BILI T 0.5 mg/dL 03/02/2016 Comp Metabolic Bwd694 ALBUMIN 4.0 g/dL 03/02/2016 Comp Metabolic Kuy631 TPRO 6.6 g/dL 03/02/2016 Comp Metabolic Hpk873 GLOB 2.6 g/dL 03/02/2016 Comp Metabolic Ynt288 A/G Ratio 1.5 Ratio 03/02/2016 Comp Metabolic Wzm780 Osmo 281 mOsmo 03/02/2016 Cbc With Differential [...] 28.4 % 03/02/2016 Cbc With Differential Ord2 [place]% 8.1 % 03/02/2016 Cbc With Differential Ord2 [...] 2.29 K/ul 03/02/2016 Cbc With Differential Ord2 [place] ABS# 0.7 K/ul 03/02/2016 Cbc With Differential Ord2 Eos ABS# 0.2 K/ul 03/02/2016 Cbc With Differential Ord2 Baso ABS# 0.1 K/ul 03/02/2016 Pt Mpy2790 PT 30.0 seconds 03/02/2016 Pt Egf6844 INR 3.1 03/02/2016 Pt Dxd5141 Low Intensity - 1.5-2.0 03/02/2016 Pt Gpl4629 Mod intensity - 2.0-3.0 03/02/2016 Pt Tow6278 Hi intensity - 3.0-4.0 03/02/2016 Cbc With Differential Ord2 WBC 5.13 K/ul 10/31/2015 Cbc With Differential Ord2 RBC 5.65 M/ul 10/31/2015 Cbc With Differential Ord2 HGB 16.3 g/dl 10/31/2015 Cbc With Differential Ord2 Neut% 59.8 % 10/31/2015 Cbc With Differential Ord2 HCT 48.0 % 10/31/2015 Cbc With Differential Ord2 Lymph% 25.5 % 10/31/2015 Cbc With Differential Ord2 MCV 85.0 fl 10/31/2015 Cbc With Differential Ord2 [place]% 12.7 % 10/31/2015 Cbc With Differential Ord2 [...] 1.31 K/ul 10/31/2015 Cbc With Differential Ord2 [place] ABS# 0.7 K/ul 10/31/2015 Cbc With Differential [...] hTSH II 0.88 uIU/mL 10/31/2015 Comp Metabolic Xnl511 NA 135 mEq/L 10/31/2015 Comp Metabolic Qsh079 K 4.2 mEq/L 10/31/2015 Comp Metabolic Jww738 CL 99 mEq/L 10/31/2015 Comp Metabolic Qml772 CO2 28.0 mEq/L 10/31/2015 Comp Metabolic Ozc108 ANION GAP 12 10/31/2015 Comp Metabolic Bhq827 GLUCOSE 107 mg/dL 10/31/2015 Comp Metabolic Cej064 Creat 1.2 mg/dL 10/31/2015 Comp Metabolic Tkx790 eGFR 63 ml/min/1.73m2 10/31/2015 Comp Metabolic Ebf025 BUN 12 mg/dL 10/31/2015 Comp Metabolic Tvs447 B/C Ratio 9.9 Ratio 10/31/2015 Comp Metabolic Pmz913 CALCIUM 8.4 mg/dL 10/31/2015 Comp Metabolic Lcr701 ALK PHOS 134 U/L 10/31/2015 Comp Metabolic Bdz450 AST(SGOT) 20 U/L 10/31/2015 Comp Metabolic Vux819 ALT(SGPT) 16 U/L 10/31/2015 Comp Metabolic Wyi298 BILI T 0.4 mg/dL 10/31/2015 Comp Metabolic Sfj378 ALBUMIN 4.2 g/dL 10/31/2015 Comp Metabolic Hlt813 TPRO 7.2 g/dL 10/31/2015 Comp Metabolic Fnt141 GLOB 3.1 g/dL 10/31/2015 Comp Metabolic Cly753 A/G Ratio 1.4 Ratio 10/31/2015 Comp Metabolic Ack406 Osmo 270 mOsmo 10/31/2015 Total Psa Ord10 PSA 2.66 ng/mL 10/31/2015 %Hba1C Tcs262 % HbA1c 20887-9 6.1 % 10/31/2015 %Hba1C Gvs960 Gluc Ave 128 mg/dL 10/31/2015 Pt Umk3304 PT 26.4 seconds 10/31/2015 Pt Yvs5908 INR 2.5 10/31/2015 Pt Ojy7498 Low Intensity - 1.5-2.0 10/31/2015 Pt Nha4450 Mod intensity - 2.0-3.0 10/31/2015 Pt Bxi1203 Hi intensity - 3.0-4.0 10/31/2015 TSH 4987846 TSH 0.819 uIU/ML 11/10/2013 PT/MC 0883053 PRO TIME 24.5 SEC 11/10/2013 PT/MC 3693755 INR MCMC 2.3 11/10/2013 GFR CALC 9605199 GFR AA >60 ML/MIN 11/10/2013 GFR CALC 3244151 GFR NON-AA >60 ML/MIN 11/10/2013 CBC 3189390 WBC 8.4 10e9/L 11/10/2013 CBC 9209345 RBC 5.24 10e12/L 11/10/2013 CBC 0653993 HGB 15.4 g/dL 11/10/2013 CBC 0223491 HCT DET 43.8 % 11/10/2013 CBC 8991792 MCV 83.6 fL 11/10/2013 CBC 0998348 MCH 29.4 pg 11/10/2013 CBC 7513708 MCHC 35.2 g/dL 11/10/2013 CBC 3031167 PLT 250 10e9/L 11/10/2013 CBC 0401366 MPV 11.1 fL 11/10/2013 CBC 5137970 OANH % 58.1 % 11/10/2013 CBC 1666365 LY % 28.5 % 11/10/2013 CBC 9454771 MON % 10.2 % 11/10/2013 CBC 2294987 EOS % 2.1 % 11/10/2013 CBC 0257401 BASO % 1.1 % 11/10/2013 CBC 1832295 RDW 13.3 % 11/10/2013 CBC 6804939 ABS OANH 4.88 10e9/L 11/10/2013 CBC 8876138 ABS LYMPH 2.39 10e9/L 11/10/2013 CBC 8407197 ABS MONO 0.86 10e9/L 11/10/2013 CBC 3475812 ABS EOS 0.18 10e9/L 11/10/2013 CBC 4431615 ABS BASO 0.09 10e9/L 11/10/2013 CBC 8314073 RDW-SD 40.7 fL 11/10/2013 CHEM 14 5357634 AST 17 U/L 11/10/2013 CHEM 14 4356065 ALT 17 IU/L 11/10/2013 CHEM 14 2250494 BUN 15 MG/DL 11/10/2013 CHEM 14 4475629 ALBUMIN 4.3 GM/DL 11/10/2013 CHEM 14 9194956 CHLORIDE 103 MMOL/L 11/10/2013 CHEM 14 9379489 BILI TOT 0.6 MG/DL 11/10/2013 CHEM 14 7054390 ALK PHOS 104 U/L 11/10/2013 CHEM 14 8554757 SODIUM 137 MMOL/L 11/10/2013 CHEM 14 3280860 CREATININE 1.08 MG/DL 11/10/2013 CHEM 14 8559360 CALCIUM 8.9 MG/DL 11/10/2013 CHEM 14 0975320 POTASSIUM 4.0 MMOL/L 11/10/2013 CHEM 14 0414958 PROT TOT 7.0 GM/DL 11/10/2013 CHEM 14 5439565 GLUCOSE 84 MG/DL 11/10/2013 CHEM 14 0454162 BICARB 28 MMOL/L 11/10/2013 CHEM 14 2360785 ANION GAP 6 MEQ/L 11/10/2013 Review of [...] clear 11/10/2013 None Full Exam - General 1995 Ears/Nose/Throat [...] masses 11/30/2012 None Full Exam - General 1995 Respiratory auscultation Overall: breath sounds clear bilaterally [...] 1995 Psychiatric mood and affect Mood: happy 11/09/2012 [...] Procedure Codes Date THER/PROPH/DIAG INJ SC/IM CPT-4: 20698 10/06/2017 TRIAMCINOLONE ACET INJ NOS CPT-4: J3301 10/06/2017 THER/PROPH/DIAG INJ SC/IM CPT-4: 66659 10/31/2015 TRIAMCINOLONE ACET INJ NOS CPT-4: J3301 10/31/2015 ROUTINE VENIPUNCTURE CPT-4: 42669 11/10/2013 PRESCRIP TRANSMIT VIA ERX SY CPT-4: G8553 02/23/2013 PRESCRIP TRANSMIT VIA ERX SY CPT-4: G8553 11/30/2012 PRESCRIP TRANSMIT VIA ERX SY CPT-4: G8553 11/09/2012 Vital Signs Date Vital 04/15/2018 Blood Pressure 1: 150/88 Code : 8480-6 BMI: 28.1 Code : 16718-7 Heart Rate 1 : 84 bpm Height: 5'10" SpO2: 98% Weight: 196 lbs 12/01/2017 Blood Pressure 1: 154/78 Code : 8480-6 BMI: 28.4 Code : 72602-4 Heart Rate 1 : 87 bpm Height: 5'10" SpO2: 98% Weight: 198 lbs 10/06/2017 Blood Pressure 1: 136/74 Code : 8480-6 BMI: 38.0 Code : 21612-6 Heart Rate 1 : 75 bpm Height: 5' SpO2: 95% Temperature: 36.8 (C) / 98.2 (F) Weight: 194 lbs 8 oz 06/23/2017 Blood Pressure 1: 152/82 Code : 8480-6 BMI: 28.3 Code : 11253-1 Heart Rate 1 : 58 bpm Height: 5'10" SpO2: 96% Weight: 197 lbs 04/14/2017 Blood Pressure 1: 146/84 Code : 8480-6 BMI: 27.5 Code : 92251-2 Heart Rate 1 : 69 bpm Height: 5'10" SpO2: 95% Weight: 192 lbs 02/24/2017 Blood Pressure 1: 146/60 Code : 8480-6 BMI: 27.4 Code : 64103-9 Heart Rate 1 : 61 bpm Height: 5'10" SpO2: 97% Weight: 191 lbs 05/07/2016 Blood Pressure 1: 146/66 Code : 8480-6 BMI: 26.3 Code : 81177-4 Heart Rate 1 : 69 bpm Height: 5'10" SpO2: 97% Weight: 183 lbs 03/02/2016 Blood Pressure 1: 170/100 Code: 8480-6 Blood Pressure 1: 190/108 Code: 8480-6 BMI: 26.5 Code: 59258-5 Heart Rate 1: 76 bpm Height: 5'10" SpO2: 98% Weight: 185 lbs 10/31/2015 Blood Pressure 1: 126/86 Code : 8480-6 Blood Pressure 1: 142/90 Code: 8480-6 BMI: 26.8 Code: 88047-1 Heart Rate 1: 99 bpm Height: 5'10" SpO2: 95% Temperature: 37.0 (C) / 98.6 (F) Weight: 187 lbs 01/25/2014 Blood Pressure 1: 180/90 Code : 8480-6 BMI: 26.3 Code : 43980-6 Heart Rate 1 : 76 bpm Height: [...] Code : 8480-6 BMI: 25.7 Code : 28055-5 Heart Rate 1 : 84 bpm Height: 5'10" Weight: 179 lbs 02/23/2013 Blood Pressure 1: 138/90 Code : 8480-6 BMI: 27.0 Code : 47295-0 Heart Rate 1 : 88 bpm Height: 5'10" Temperature: 37.0 (C) / 98.6 (F) Weight: 188 lbs 01/12/2013 Blood Pressure 1: 136/78 Code : 8480-6 BMI: 26.7 Code : 62743-6 Heart Rate 1 : 96 bpm Height: 5'10" Weight: 186 lbs 11/30/2012 Blood Pressure 1: 170/90 Code : 8480-6 BMI: 26.8 Code : 87878-6 Heart Rate 1 : 80 bpm Height: 5'10" Weight: 187 lbs 11/09/2012 Blood Pressure 1: 178/84 Code : 8480-6 BMI: 26.5 Code : 68503-7 Heart Rate 1 : 86 bpm Height: [...] pain Quality recurrent 05/10/2013 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 PATIENT, LEVEL III Diagnosis: Paresthesia of skin[ICD10: R20.2] Diagnosis: Cervicalgia[ICD10: M54.2] Diagnosis: Essential (primary) hypertension[ICD10: I10] Gayle Fajardo MD, [facility] CPT-4: 53202 04/15/2018 ([id number]) PER PM REEVAL EST PAT 65+ YR Diagnosis: Benign prostatic hyperplasia with lower urinary tract symptoms[ICD10 : N40.1] Diagnosis: Essential (primary) hypertension[ICD10: I10] [facility] CPT-4: 50720 12/01/2017 [id number] EST. PATIENT, LEVEL IV Diagnosis: Other acute sinusitis[ICD10: J01.80] Diagnosis: Other allergic rhinitis[ICD10: J30.89] Diagnosis: Other correction (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[ICD10: Z79.899] Gayle Fajardo MD, [facility] CPT-4: 68282 10/06/2017 [id number] EST. 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 PATIENT, LEVEL IV Diagnosis: Other conditions associated with Lyme disease[ICD10: A69.29] Diagnosis: Other dorsalgia[ICD10: M54.89] Gayle Fajardo MD, [facility] CPT-4 : 47774 04/14/2017 [id number] EST. PATIENT, LEVEL IV Diagnosis: Pain in left elbow[ICD10: M25.522] Diagnosis: Pain in right elbow[ICD10: M25.521] Diagnosis: Pain in joints of left hand[ICD10: M25.542] Diagnosis: Pain in joints of right hand[ICD10: M25.541] Diagnosis: Other fatigue[ICD10: R53.83] Diagnosis: Other moth exterminator (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[ICD10: Z79.899] Gayle Fajardo MD, [facility] CPT-4: 52000 02/24/2017 ([id number]) 69810 EST. PATIENT, LEVEL III Diagnosis: Essential (primary) hypertension[ICD10: I10] Jennifer Fajardo MD, [facility] CPT-4: 10750 05/07/2016 ([id number]) 91901 EST. PATIENT, LEVEL IV Diagnosis: Essential (primary) hypertension[ICD10: I10] Diagnosis: Impaired fasting glucose[ICD10: R73.01] Diagnosis: Other correction (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[ICD10: Z79.899] Jennifer Fajardo MD, [facility] CPT-4: 56242 03/02/2016 ([id number]) 93673 EST. PATIENT, LEVEL IV Diagnosis: Essential (primary) hypertension[ICD10: I10] Diagnosis: Mixed hyperlipidemia[ICD10: E78.2] Diagnosis: Other correction (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[ICD10: Z79.899] Diagnosis: Impaired fasting glucose[ICD10: R73.01] Diagnosis: Acute recurrent maxillary sinusitis[ICD10: J01.01] Jennifer Fajardo MD, [facility] CPT-4: 43155 10/31/2015 ([id number]) 88776 EST. PATIENT, LEVEL III Diagnosis: CELLULITIS[ICD9: 682.9] Mahnaz Fajardo MD, [facility] CPT-4: 98069 01/25/2014 ([id number]) 81396 EST. PATIENT, LEVEL III Diagnosis: Acute maxillary sinusitis[ICD9: 461.0] Diagnosis: Cough[ICD9: 786.2] Mahnaz Fajardo MD, [facility] CPT-4: 50871 11/29/2013 ([id number]) 55552 EST. PATIENT, LEVEL III Diagnosis: ESSENTIAL HYPERTENSION[SNOMED: 67295170] Diagnosis: Encounter for long-term (current) use of other high-risk medications[ ICD9: V58.69] Jennifer Fajardo MD, [facility] CPT-4: 91556 11/10/2013 [id number]) 49774 EST. PATIENT, LEVEL IV Diagnosis: ESSENTIAL HYPERTENSION[SNOMED: 96825944] Diagnosis: HYPERLIPIDEMIA[ICD9: 272.4] GIAN Rose MD CPT- 4: 11590 05/10/2013 ([id number]) 11540 EST. PATIENT, LEVEL III Diagnosis: Esophageal reflux[ICD9: 530.81] Diagnosis: Sore throat[ICD9: 462] Diagnosis: Allergic rhinitis[ICD9: 477.9] Mahnaz Fajardo MD [facility] CPT- 4: 62057 02/23/2013 ([id number] 44439 EST. PATIENT, LEVEL III Diagnosis: ESSENTIAL HYPERTENSION[SNOMED: 83324810] Diagnosis: HYPERLIPIDEMIA[ICD9: 272.4] Mahnaz Fajardo MD, [facility] CPT- 4: 36062 01/12/2013 ([id number]) 39444 EST. 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 04/15/2018 [phone] [facility] ([facility] min) Moderate 04/15/2018 Patient Education: Patient Medication Summary Completed 04/15/2018 Ref[facility]: [facility] [phone] [facility] Referral Initiated 12/16/2017 Visit Plan: Hypertension [...] Dr. Hdez 12/01/2017 Appointment: [facility] [phone] [facility] ([facility] min) Complex 12/01/2017 Patient Education: Patient Medication Summary Completed 12/01/2017 Care Plan: Referral Order SNOMED-CT : 049150798 Pending 12/01/2017 Visit Plan: Sinusitis - Pt [...] allergy spray. 10/06/2017 Appointment: Gayle Morris WPtel: [facility] (30 min) Complex 10/06/2017 Patient Education: Patient Medication Summary Completed 10/06/2017 Care Plan: Pt Approved 10/06/2017 Referral: Kobe Benjamin [address] [facility] Referral Initiated 07/06/2017 Visit Plan: Esophageal [...] not improve. 06/23/2017 Appointment: Gayle Morris WPtel: [facility] (30 min) Complex 06/23/2017 Patient Education: Patient Medication Summary Completed 06/23/2017 Care Plan: Referral Order SNOMED-CT : 414728357 Pending 06/23/2017 Visit Plan: Back pain, lyme [...] Pain Completed 04/14/2017 Appointment: Gayle Morris WPtel: [phone] [facility] (30 min) Complex 04/13/2017 Visit Plan: Joint pain, back pain - will check labs - The pt is to use prn antiinflammatories to manage acute pain. The patient is to call the office if the pain is worsening or does not improve. 02/24/2017 Appointment: Gayle Morris WPtel: [phone] [facility] (30 min) Complex 02/24/2017 Patient Education: Patient Medication Summary Completed 02/24/2017 Patient Education: Patient Medication Summary Completed 11/20/2016 Care Plan: Pt Pending 11/20/2016 Appointment: Jennifer Perez WPtel: [phone] [phone] [place] (30 min) Complex 11/05/2016 Visit Plan: Hypertension - well controlled - continue with current medications, continue with no added salt diet. Pt has been encouraged to exercise daily. The pt has been advised to call the office if there are any acute concerns about change in blood pressure readings at home. 05/07/2016 Appointment: [facility] [phone] [phone] [place] (30 min) Complex 05/07/2016 Patient Education: [...] 03/02/2016 Care Plan: Referral Order SNOMED-CT : 030238986 Pending 03/02/2016 Visit Plan: Hypertension - well [...] of pressure. 01/25/2014 Appointment: Mahnaz Fajardo WPtel: [phone] [facility] Other 01/25/2014 Patient Education: Patient Medication Summary Completed 01/25/2014 Appointment: Mahnaz Fajardo WPtel: [facility]5 [facility] Sick 11/29/2013 Patient Education: Patient Medication Summary [...] Coumadin-check PT/INR 11/10/2013 Appointment: Jennifer Perez WPtel: [facility]5 [facility] [place] [address] Follow up 11/10/2013 Patient Education: Patient Medication Summary Completed 11/10/2013 Patient Education: Hypertension Completed 11/10/2013 Appointment: Mahnaz Fajardo WPtel: [address] [place], [place] [id number] Follow up 11/08/2013 Visit Plan: Hypertension - [...] to medications. 05/10/2013 Appointment: Mahnaz Fajardo WPtel: [facility]3 [facility] Follow up 05/10/2013 Patient Education: Patient Medication Summary Completed 05/10/2013 Patient Education: Hypertension Completed 05/10/2013 Appointment: Mahnaz Fajardo WPtel: [facility]5 [facility] Sick 02/24/2013 Visit Plan: Esophageal Reflux - [...] one month. 01/12/2013 Appointment: Mahnaz Fajardo WPtel: [facility]5 [facility] Follow up 01/12/2013 Patient Education: Patient Medication Summary Completed 01/12/2013 Patient Education: Hypertension Completed 01/12/2013 Appointment: Mahnaz Fajardo WPtel: [facility]5 [facility] Follow up 01/11/2013 Visit Plan: Nerve pain [...] to assure normal liver response to medications. [place] Krill oil twice daily 11/30/2012 Appointment: Mahnaz Fajardo WPtel: [facility] Follow up 11/30/2012 Patient Education: Patient Medication [...] suspect arthritis. 11/09/2012 Appointment: Mahnaz Fajardo WPtel: [facility] New Patient 11/09/2012 Patient Education: Patient Medication Summary Completed 11/09/2012 Patient Education: Hypertension Completed 11/09/2012 Referral: Kobe Benjamin [address] [place] [address] [facility] Referral Initiated Referral: Fernando Hdez WPtel: [phone] [place] [place] Referral Initiated Referral: Opal Reddy Referral Appointment [...] to call for acute concerns. Coumadin-check PT/INR I would like to check a tick panel for [place] Spotted Fever - I will give you a script for the blood draw let me know where you get it done so we can look for results. I would like to start doxycycline - I can send augmentin for you to start, but the only treatment for [place] Spotted Fever is Doxycycline. Massage from [facility] [...] Hyperlipidemia - check lipids in one month. [place] red Krill oil twice daily increase the [...] to assure normal liver response to medications. [place] red Krill oil twice daily . Hypertension [...]
--- OUTSIDE RECORDS SUMMARY | 2018-11-11 10:16 | XMS REPORT | CCD ---
Author Author Mahnaz Fajardo Organization Mahnaz Fajardo MD, [facility] Address [address] [place] [address] Phone Care Team Providers Care Composite Bond Technician Name Role Phone PP Unavailable CCM Unavailable Summary Purpose Interface Exchange Insurance Providers Payer name Policy type / Coverage type Covered democrat ID Effective Begin Date Effective End Date [employer] Medicare Part B [id number] 2016 Unknown Family history Mother Diagnosis Age At Onset Stroke Unknown Father Diagnosis Age At Onset Hypertension Unknown Sister Diagnosis Age At Onset Hypertension Unknown Social History Social History Element Codes Description Effective Dates Marital status Unknown 11/09/[address]: 7699656 Former smoker quit 1988 11/09/2012 Allergies, Adverse [...] 477.8 ICD-10: J30.89 Active 10/06/2017 Unknown Other medical terminologist (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 ICD-9: V58.69 ICD-10: Z79.899 [...] ICD-9: 477.8 ICD-10: J30.89 10/06/2017 Active Other intermediate (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 ICD-9: V58.69 ICD-10: Z79.899 [...] Fill Instructions lisinopril 20 mg tablet RxNorm: 261148 1 Tablet(s) PO BID 05/1708/09/2019 Active Augmentin 500 mg-125 mg tablet RxNorm: 119546 1 Tablet(s) PO TID 04/29/2018 05/08/2018 Inactive Diflucan 150 mg tablet RxNorm: 852767 1 Tablet(s) PO daily 11/201705/03/2018 Inactive lisinopril 40 mg tablet RxNorm: 222885 1/2 Tablet(s) PO BID 03/03/2019 Active change from lisinopril 20 BID lisinopril 40 mg tablet RxNorm: 055678 1/2 Tablet(s) PO BID 03/08/2018 Inactive Coreg 12.5 mg tablet RxNorm: 403258 TAKE 1 TABLET BY MOUTH TWO TIMES DAILY 02/23/2018 08/21/2018 Active - Ref: [id number] amoxicillin 500 mg capsule RxNorm: 273140 1 Capsule(s) PO TID 10/19/2017 10/28/2017 Inactive amoxicillin 500 mg capsule RxNorm: 942137 1 Capsule(s) PO TID 10/19/2017 10/18/2017 Inactive Kenalog 40 mg/mL suspension for injection RxNorm: 9795706 1 Milliliter(s) Inj 10/06/2017 10/06/2017 Inactive Zithromax Z-[place] 250 mg tablet RxNorm: 140769 1 Tablet(s) PO UD 10/06/2017 02/22/2018 Inactive Flomax 0.4 mg capsule RxNorm: 396017 TAKE 2 CAPSULES BY MOUTH DAILY 09/30/2017 12/23/2018 Active - Ref: [id number] warfarin 3 mg tablet RxNorm: 947682 TAKE 1 TABLET BY MOUTH ON WEDNESDAY , WEDNESDAY , WEDNESDAY,WEDNESDAY, WEDNESDAY THEN 1 AND 1/2 TABLETS BY MOUTH ON WEDNESDAY AND Wednesday09/30/2017 06/21/2019 Active - Ref: [id number] omeprazole 20 mg capsule,delayed release RxNorm: 222756 1 Capsule(s) PO daily 06/23/2017 07/22/2017 Inactive lisinopril 20 mg tablet RxNorm: 824100 1 Tablet(s) PO BID 04/2103/08/2018 Inactive Coreg 12.5 mg tablet RxNorm: 298957 1 Tablet(s) PO BID 201605/20/2017 Inactive Coreg 12.5 mg tablet RxNorm: 080786 1 Tablet(s) PO BID 201604/20/2017 Inactive Augmentin 500 mg-125 mg tablet RxNorm: 448975 1 Tablet(s) PO TID 04/14/2017 04/22/2017 Inactive Diflucan 150 mg tablet RxNorm: 785522 1 Tablet(s) PO daily 04/18/2017 Inactive Flomax 0.4 mg capsule RxNorm: 855535 Take 2 capsules by mouth daily 03/31/2017 09/29/2017 Inactive - First Attempt Ref: [id number] lisinopril 20 mg tablet RxNorm: 947506 1 Tablet(s) PO BID 03/1104/20/2017 Inactive Voltaren 1 % topical gel RxNorm: 622754 1 Application TOP BID as needed 03/09/2017 No Stop Date Active lisinopril 20 mg tablet RxNorm: 564395 2 Tablet(s) PO BID 02/2603/10/2017 Inactive cyclobenzaprine 5 mg tablet RxNorm: 372618 1 Tablet(s) PO TID as needed muscle spasms 02/24/2017 02/28/2017 Inactive warfarin 3 mg tablet RxNorm: 504318 1 Tablet(s) PO daily 201609/29/2017 Inactive lisinopril 20 mg tablet RxNorm: 112313 Take 2 tablets by mouth twice a day 09/22/2016 02/25/2017 Inactive - Ref: [id number] lisinopril 20 mg tablet RxNorm: 203046 1 Tablet(s) PO BID 05/0702/25/2017 Inactive First Attempt Coreg 25 mg tablet RxNorm: 448922 1 Tablet(s) PO BID 201502/23/[address] Reddy lisinopril 20 mg tablet RxNorm: 390805 1 Tablet(s) PO daily Take 2 tablets by mouth bid 05/07/2016 05/06/2016 Inactive First Attempt Flomax 0.4 mg capsule RxNorm: 953267 Take 2 capsules by mouth daily 03/15/2016 03/30/2017 Inactive - First Attempt lisinopril 20 mg tablet RxNorm: 892550 2 Tablet(s) PO BID Take 2 tablets by mouth bid 03/04/2016 05/06/2016 Inactive First Attempt lisinopril 20 mg tablet RxNorm: 387558 1 Tablet(s) PO BID Take 2 tablets by mouth daily 03/02/2016 03/03/2016 Inactive First Attempt Phenergan with Codeine Syrup RxNorm: 5 Milliliter(s) PO Q6 PRN 10/31/2015 No Stop Date Active Kenalog 40 mg/mL suspension for injection RxNorm: 3287736 Milliliter(s) Inj 10/31/2015 10/31/2015 Inactive warfarin 3 mg tablet RxNorm: 142561 Tablet(s) Take 1 tablet by mouth on tu,wed, ,sat and sun and 1 and 1/2 tablets by mouth on mon and wed10/31/2015 07/23/2016 Inactive Zithromax Z-[place] 250 mg tablet RxNorm: 817423 1 Tablet(s) PO UD 10/31/2015 11/04/2015 Inactive zpack Coreg 3.125 mg tablet RxNorm: 753778 1 Tablet(s) PO BID 201405/06/2016 Inactive warfarin 3 mg tablet RxNorm: 734444 Take 1 tablet by mouth on tues,wed,thur,sat and sun and 1 and 1/2 tablets by mouth on wed and wed06/05/2015 Inactive 2nd Attempt warfarin 3 mg tablet RxNorm: 663897 Tablet(s) Take 1 tablet by mouth on ,wed, thur,sat and sun and 1 and 1/2 tablets by mouth on wed and wed06/06/2015 10/30/2015 Inactive 2nd Attempt Flomax 0.4 mg capsule RxNorm: 997813 Take 2 capsules by mouth daily 04/29/2015 01/23/2016 Inactive First Attempt lisinopril 10 mg tablet RxNorm: 519693 Take 2 tablets by mouth daily 04/29/2015 01/23/2016 Inactive First Attempt warfarin 3 mg tablet RxNorm: 441082 one wed thur sat sun 4.5mg wednesday Tablet(s) PO daily 07/25/2014 06/05/2015 Inactive Flomax 0.4 mg capsule RxNorm: 911454 2 Capsule(s) PO daily 07/2504/28/2015 Inactive lisinopril 10 mg tablet RxNorm: 262283 2 Tablet(s) PO daily 04/28/2015 Inactive Coreg 3.125 mg tablet RxNorm: 630956 1 Tablet(s) PO BID 201306/18/2015 Inactive cephalexin 500 mg capsule RxNorm: 059496 1 Capsule(s) PO QID 10/30/2015 Inactive lisinopril 20 mg tablet RxNorm: 449439 1 Tablet(s) PO BID 11/1003/09/2014 Inactive Flomax 0.4 mg capsule RxNorm: 103470 2 Capsule(s) PO daily 10/1207/24/2014 Inactive Coreg 3.125 mg tablet RxNorm: 288296 1 Tablet(s) PO BID 201307/24/2014 Inactive lisinopril 10 mg tablet RxNorm: 632781 2 Tablet(s) PO daily 11/09/2013 Inactive warfarin 3 mg tablet RxNorm: 777702 one wedur sat sun 4.5mg wednesday Tablet(s) PO daily 10/12/2013 07/24/2014 Inactive o Flomax 0.4 mg capsule RxNorm: 471861 2 Capsule(s) PO daily 06/0510/11/2013 Inactive Zetia 10 mg tablet RxNorm: 185702 1 Tablet(s) PO daily 201205/15/2013 Inactive Zetia 10 mg tablet RxNorm: 789137 1 Tablet(s) PO daily 201209/12/2013 Inactive Carafate 100 mg/mL Oral Susp RxNorm: 462292 10 Milliliter(s) PO QID 05/10/2013 10/30/2015 Inactive dispense one month supply Flomax 0.4 mg capsule RxNorm: 208404 2 Capsule(s) PO daily 05/1006/04/2013 Inactive Carafate 100 mg/mL Oral Susp RxNorm: 476639 10 Milliliter(s) PO QID 02/23/2013 04/23/2013 Inactive dispense one month supply gabapentin 100 mg capsule RxNorm: 455069 1 Capsule(s) PO daily one at bedtime and one up to three times daily as needed for nerve pain in leg 01/16/2013 05/09/2013 Inactive gabapentin 100 mg capsule RxNorm: 387472 1 Capsule(s) PO daily one at bedtime and one up to three times daily as needed for nerve pain in leg 01/12/2013 01/15/2013 Inactive warfarin 3 mg tablet RxNorm: 652870 Tablet(s) PO 12/05/2012 10/11/2013 Inactive one wed thur sat4.5 mg wed lisinopril 10 mg tablet RxNorm: 622752 2 Tablet(s) PO daily 02/201306/27/2013 Inactive gabapentin 100 mg capsule RxNorm: 251088 1 Capsule(s) PO Q8 PRN one at bedtime and one up to three times daily as needed for nerve pain in leg 11/30/2012 01/11/2013 Inactive Coreg 3.125 mg tablet RxNorm: 047555 1 Tablet(s) PO BID 201201/07/2013 Inactive lisinopril 10 mg tablet RxNorm: 155041 1.5 Tablet(s) PO daily 11/09/2012 11/29/2012 Inactive Co Q-10 oral RxNorm: 42708 oral No Start Date Active famotidine 20 mg tablet RxNorm: 592514 1 Tablet(s) PO QAM No Start Date Active Coreg 12.5 mg tablet RxNorm: 635359 1 Tablet(s) PO BID No Start Date 04/20/2017 Inactive Voltaren 1 % topical gel RxNorm: 635654 1 Application TOP BID as needed No Start Date 03/08/2017 Inactive lisinopril 20 mg tablet RxNorm: 218318 1 Tablet(s) PO BID No Start Date 05/16/2018 Inactive warfarin 3 mg tablet RxNorm: 708898 Tablet(s) PO No Start Date 12/04/2012 Inactive one e thur sat4.5 mg wed Flomax 0.4 mg capsule RxNorm: 997563 1 Capsule(s) PO daily No Start Date 05/09/2013 Inactive niacin 500 mg tablet RxNorm: 807793 1 Tablet(s) PO daily No Start Date 03/01/2016 Inactive Medication Administered Medication Codes Instructions Start Date Status Kenalog 40 mg/mL suspension for injection RxNorm: 5232135 1Milliliter 10/06/2017 No longer Active Kenalog 40 mg/mL suspension for injection RxNorm: 4679732 Milliliter 10/31/2015 No longer Active Immunizations No [...] rhinitis ICD-10: J30.89 ICD-9: 477.8 10/06/2017 Other medical terminologist (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 ICD-10: Z79.899 ICD-9: V58.69 [...] maxillary sinusitis ICD-9: 461.0 ESSENTIAL HYPERTENSION SNOMED: 19766043 ICD-9: 401.9 11/10/2013 Encounter for long-term (current) [...] Code Item Item Code Result Date Pt Izj0433 PT 38.0 seconds 04/04/2018 Pt Etg1011 INR 3.8 04/04/2018 Pt Zjc3854 Low Intensity - 1.5-2.0 04/04/2018 Pt Iwx7419 Mod intensity - 2.0-3.0 04/04/2018 Pt Wwp5106 Hi intensity - 3.0-4.0 04/04/2018 Metabolic Ord15 [...] Magnesium Ord90 Mag 1.9 mg/dL 04/04/2018 Pt Vad1525 PT 21.1 seconds 03/08/2018 Pt Mny3265 INR 1.8 03/08/2018 Pt Wrf8863 Low Intensity - 1.5-2.0 03/08/2018 Pt Iib3659 Mod intensity - 2.0-3.0 03/08/2018 Pt Fir7044 Hi intensity - 3.0-4.0 03/08/2018 Pt Rmq0965 PT 37.2 seconds 02/23/2018 Pt Dhj1742 INR 3.7 02/23/2018 Pt Qgv5412 Low Intensity - 1.5-2.0 02/23/2018 Pt Uva6164 Mod intensity - 2.0-3.0 02/23/2018 Pt Vqw3603 Hi intensity - 3.0-4.0 02/23/2018 Pt Pgm7944 PT 33.4 seconds 12/28/2017 Pt Yoa1982 INR 3.2 12/28/2017 Pt Pik6523 Low Intensity - 1.5-2.0 12/28/2017 Pt Clt0269 Mod intensity - 2.0-3.0 12/28/2017 Pt Sfx9849 Hi intensity - 3.0-4.0 12/28/2017 Pt Xvo2063 PT 30.2 seconds 10/06/2017 Pt Zlk5751 INR 2.9 10/06/2017 Pt Riy1680 Low Intensity - 1.5-2.0 10/06/2017 Pt Jhj8890 Mod intensity - 2.0-3.0 10/06/2017 Pt Hvu1819 Hi intensity - 3.0-4.0 10/06/2017 Pt Vrk1706 PT 33.3 seconds 06/23/2017 Pt Gwi3582 INR 3.2 06/23/2017 Pt Crr7227 Low Intensity - 1.5-2.0 06/23/2017 Pt Opq9310 Mod intensity - 2.0-3.0 06/23/2017 Pt Dgo6050 Hi intensity - 3.0-4.0 06/23/2017 Tsh Ord6 hTSH II 0.86 uIU/mL 02/24/2017 Sed Rate Ord21 ESR 25 mm/hr 02/24/2017 Pt Mga9050 PT 31.7 seconds 02/24/2017 Pt Aiv0421 INR 3.3 02/24/2017 Pt Dhk6584 Low Intensity - 1.5-2.0 02/24/2017 Pt Klv8251 Mod intensity - 2.0-3.0 02/24/2017 Pt Mqp2050 Hi intensity - 3.0-4.0 02/24/2017 Cbc With [...] 31.1 % 02/24/2017 Cbc With Differential Ord2 MCH 29.6 pg 02/24/2017 Cbc With Differential Ord2 Woodruff% 9.7 % 02/24/2017 Cbc With Differential Ord2 Eos% 2.6 % 02/24/2017 Cbc With Differential Ord2 MCHC 35.0 pg 02/24/2017 Cbc With Differential Ord2 Baso% 1.1 % 02/24/2017 Cbc With Differential Ord2 PLT 212 K/ul 02/24/2017 Cbc With Differential Ord2 RDW 13.9 % 02/24/2017 Cbc With Differential Ord2 Neut ABS# 4.68 K/ul 02/24/2017 Cbc With Differential Ord2 Lymph ABS# 2.62 K/ul 02/24/2017 Cbc With Differential Ord2 [place]ruff ABS# 0.8 K/ul 02/24/2017 Cbc With Differential Ord2 Eos ABS# 0.2 K/ul 02/24/2017 Cbc With Differential Ord2 Baso ABS# 0.1 K/ul 02/24/2017 Comp Metabolic Tiy977 NA 139 mEq/L 02/24/2017 Comp Metabolic Eeq236 K 3.9 mEq/L 02/24/2017 Comp Metabolic Pin005 CL 105 mEq/L 02/24/2017 Comp Metabolic Qdg747 CO2 27.0 mEq/L 02/24/2017 Comp Metabolic Pab912 ANION GAP 11 02/24/2017 Comp Metabolic Fxg321 GLUCOSE 93 mg/dL 02/24/2017 Comp Metabolic Kkm164 Creat 1.1 mg/dL 02/24/2017 Comp Metabolic Oci028 eGFR 73 ml/min/1.73m2 02/24/2017 Comp Metabolic Enu570 BUN 14 mg/dL 02/24/2017 Comp Metabolic Osr854 B/C Ratio 13.1 Ratio 02/24/2017 Comp Metabolic Ond048 CALCIUM 8.4 mg/dL 02/24/2017 Comp Metabolic Zqb172 ALK PHOS 89 U/L 02/24/2017 Comp Metabolic Axy706 AST(SGOT) 18 U/L 02/24/2017 Comp Metabolic Puv778 ALT(SGPT) 21 U/L 02/24/2017 Comp Metabolic Hfu033 BILI T 0.5 mg/dL 02/24/2017 Comp Metabolic Obi013 ALBUMIN 3.8 g/dL 02/24/2017 Comp Metabolic Tfg362 TPRO 6.5 g/dL 02/24/2017 Comp Metabolic Gnx981 GLOB 2.7 g/dL 02/24/2017 Comp Metabolic Vic826 A/G Ratio 1.4 Ratio 02/24/2017 Comp Metabolic Fzc226 Osmo 278 mOsmo 02/24/2017 C-Reactive Protein Qnt Crqnt CRP 0.2 mg/dl 02/24/2017 Pt Lty5152 PT 22.4 seconds 12/28/2016 Pt Mjg3523 INR 2.1 12/28/2016 Pt Hzl2440 Low Intensity - 1.5-2.0 12/28/2016 Pt Lrc3158 Mod intensity - 2.0-3.0 12/28/2016 Pt Wzt5469 Hi intensity - 3.0-4.0 12/28/2016 Pt Coj5418 PT 30.2 seconds 11/26/2016 Pt Eno4200 INR 3.1 11/26/2016 Pt Mdy0275 Low Intensity - 1.5-2.0 11/26/2016 Pt Yln4403 Mod intensity - 2.0-3.0 11/26/2016 Pt Kwp9482 Hi intensity - 3.0-4.0 11/26/2016 Pt Nnm0267 PT 34.3 seconds 11/20/2016 Pt Ues6802 INR 3.7 11/20/2016 Pt Gwe8310 Low Intensity - 1.5-2.0 11/20/2016 Pt Gjl3721 Mod intensity - 2.0-3.0 11/20/2016 Pt Ugd7301 Hi intensity - 3.0-4.0 11/20/2016 Pt Els3363 PT 29.0 seconds 07/14/2016 Pt Htf6487 INR 2.9 07/14/2016 Pt Tzo5533 Low Intensity - 1.5-2.0 07/14/2016 Pt Xua9801 Mod intensity - 2.0-3.0 07/14/2016 Pt Ncr4662 Hi intensity - 3.0-4.0 07/14/2016 Lipid Ord30 CHOL 236 mg/dL 07/14/2016 Lipid Ord30 HDL 36.0 mg/dl 07/14/2016 Lipid Ord30 TRIG 406 mg/dL 07/14/2016 Lipid Ord30 LDL Unable to calculate Due to elevated triglycerides mg/dL 07/14/2016 Lipid Ord30 C/HDL 6.6 Ratio 07/14/2016 Cbc With Differential Ord2 WBC 8.05 K/ul 03/02/2016 Cbc With Differential Ord2 RBC 5.16 M/ul 03/02/2016 Cbc With Differential Ord2 HGB 15.1 g/dl 03/02/2016 Cbc With Differential Ord2 Neut% 60.4 % 03/02/2016 Cbc With Differential Ord2 HCT 44.4 % 03/02/2016 Cbc With Differential Ord2 MCV 86.0 fl 03/02/2016 Cbc With Differential Ord2 Lymph% 28.4 % 03/02/2016 Cbc With Differential Ord2 Woodruff% 8.1 % 03/02/2016 Cbc With Differential Ord2 MCH 29.3 pg 03/02/2016 Cbc With Differential Ord2 MCHC 34.0 pg 03/02/2016 Cbc With Differential Ord2 Eos% 1.9 % 03/02/2016 Cbc With Differential Ord2 Baso% 1.2 % 03/02/2016 Cbc With Differential Ord2 PLT 232 K/ul 03/02/2016 Cbc With Differential Ord2 Neut ABS# 4.86 K/ul 03/02/2016 Cbc With Differential Ord2 RDW 14.0 % 03/02/2016 Cbc With Differential Ord2 Lymph ABS# 2.29 K/ul 03/02/2016 Cbc With Differential Ord2 [place]ruff ABS# 0.7 K/ul 03/02/2016 Cbc With Differential Ord2 Eos ABS# 0.2 K/ul 03/02/2016 Cbc With Differential Ord2 Baso ABS# 0.1 K/ul 03/02/2016 %Hba1C Fsh984 % HbA1c 95834-9 6.0 % 03/02/2016 %Hba1C Dyy769 Gluc Ave 126 mg/dL 03/02/2016 Comp Metabolic Cwn620 NA 140 mEq/L 03/02/2016 Comp Metabolic Noa079 K 4.1 mEq/L 03/02/2016 Comp Metabolic Fwq979 CL 105 mEq/L 03/02/2016 Comp Metabolic Alc101 CO2 29.0 mEq/L 03/02/2016 Comp Metabolic Gbv078 ANION GAP 10 03/02/2016 Comp Metabolic Rjf539 GLUCOSE 104 mg/dL 03/02/2016 Comp Metabolic Ivm456 Creat 1.0 mg/dL 03/02/2016 Comp Metabolic Vot249 eGFR 77 ml/min/1.73m2 03/02/2016 Comp Metabolic Jys941 BUN 15 mg/dL 03/02/2016 Comp Metabolic Gsu969 B/C Ratio 14.7 Ratio 03/02/2016 Comp Metabolic Rpu677 CALCIUM 8.9 mg/dL 03/02/2016 Comp Metabolic Rzy864 ALK PHOS 84 U/L 03/02/2016 Comp Metabolic Zdr862 AST(SGOT) 16 U/L 03/02/2016 Comp Metabolic Xae544 ALT(SGPT) 17 U/L 03/02/2016 Comp Metabolic Kqi903 BILI T 0.5 mg/dL 03/02/2016 Comp Metabolic Icu178 ALBUMIN 4.0 g/dL 03/02/2016 Comp Metabolic Cqe406 TPRO 6.6 g/dL 03/02/2016 Comp Metabolic Zee262 GLOB 2.6 g/dL 03/02/2016 Comp Metabolic Qoa243 A/G Ratio 1.5 Ratio 03/02/2016 Comp Metabolic Bln866 Osmo 281 mOsmo 03/02/2016 Tsh Ord6 hTSH II 0.68 uIU/mL 03/02/2016 Pt Lww3434 PT 30.0 seconds 03/02/2016 Pt Dkg4629 INR 3.1 03/02/2016 Pt Eiv9020 Low Intensity - 1.5-2.0 03/02/2016 Pt Bvo1668 Mod intensity - 2.0-3.0 03/02/2016 Pt Gka5684 Hi intensity - 3.0-4.0 03/02/2016 Cbc With [...] 25.5 % 10/31/2015 Cbc With Differential Ord2 Woodruff% 12.7 % 10/31/2015 Cbc With Differential Ord2 MCH 28.8 pg 10/31/2015 Cbc With Differential Ord2 Eos% 1.4 % 10/31/2015 Cbc With Differential Ord2 MCHC 34.0 pg 10/31/2015 Cbc With Differential Ord2 Baso% 0.6 % 10/31/2015 Cbc With Differential Ord2 PLT 222 K/ul 10/31/2015 Cbc With Differential Ord2 Neut ABS# 3.07 K/ul 10/31/2015 Cbc With Differential Ord2 RDW 14.4 % 10/31/2015 Cbc With Differential Ord2 Lymph ABS# 1.31 K/ul 10/31/2015 Cbc With Differential Ord2 [place]ruff ABS# 0.7 K/ul 10/31/2015 Cbc With Differential [...] hTSH II 0.88 uIU/mL 10/31/2015 Comp Metabolic Tuq447 NA 135 mEq/L 10/31/2015 Comp Metabolic Wxh677 K 4.2 mEq/L 10/31/2015 Comp Metabolic Wfb204 CL 99 mEq/L 10/31/2015 Comp Metabolic Wov691 CO2 28.0 mEq/L 10/31/2015 Comp Metabolic Bsm045 ANION GAP 12 10/31/2015 Comp Metabolic Qmt454 GLUCOSE 107 mg/dL 10/31/2015 Comp Metabolic Alx151 Creat 1.2 mg/dL 10/31/2015 Comp Metabolic Ori321 eGFR 63 ml/min/1.73m2 10/31/2015 Comp Metabolic Uiq031 BUN 12 mg/dL 10/31/2015 Comp Metabolic Bug943 B/C Ratio 9.9 Ratio 10/31/2015 Comp Metabolic Qba854 CALCIUM 8.4 mg/dL 10/31/2015 Comp Metabolic Kte071 ALK PHOS 134 U/L 10/31/2015 Comp Metabolic Mqi187 AST(SGOT) 20 U/L 10/31/2015 Comp Metabolic Jed383 ALT(SGPT) 16 U/L 10/31/2015 Comp Metabolic Yub066 BILI T 0.4 mg/dL 10/31/2015 Comp Metabolic Qfs686 ALBUMIN 4.2 g/dL 10/31/2015 Comp Metabolic Iqe464 TPRO 7.2 g/dL 10/31/2015 Comp Metabolic Kug249 GLOB 3.1 g/dL 10/31/2015 Comp Metabolic Eqc156 A/G Ratio 1.4 Ratio 10/31/2015 Comp Metabolic Mpd994 Osmo 270 mOsmo 10/31/2015 Total Psa Ord10 PSA 2.66 ng/mL 10/31/2015 %Hba1C Rre095 % HbA1c 20636-1 6.1 % 10/31/2015 %Hba1C Rzy357 Gluc Ave 128 mg/dL 10/31/2015 Pt Unb8176 PT 26.4 seconds 10/31/2015 Pt Fej7321 INR 2.5 10/31/2015 Pt Xxv1992 Low Intensity - 1.5-2.0 10/31/2015 Pt Jxi8135 Mod intensity - 2.0-3.0 10/31/2015 Pt Adq1612 Hi intensity - 3.0-4.0 10/31/2015 TSH 4446773 TSH 0.819 uIU/ML 11/10/2013 PT/MC 1645214 PRO TIME 24.5 SEC 11/10/2013 PT/MC 4368840 INR MCMC 2.3 11/10/2013 GFR CALC 9013062 GFR AA >60 ML/MIN 11/10/2013 GFR CALC 4518037 GFR NON-AA >60 ML/MIN 11/10/2013 CBC 9370067 WBC 8.4 10e9/L 11/10/2013 CBC 2285709 RBC 5.24 10e12/L 11/10/2013 CBC 6639191 HGB 15.4 g/dL 11/10/2013 CBC 6818498 HCT DET 43.8 % 11/10/2013 CBC 7568087 MCV 83.6 fL 11/10/2013 CBC 0990448 MCH 29.4 pg 11/10/2013 CBC 8174084 MCHC 35.2 g/dL 11/10/2013 CBC 0577748 PLT 250 10e9/L 11/10/2013 CBC 1010139 MPV 11.1 fL 11/10/2013 CBC 3090346 OANH % 58.1 % 11/10/2013 CBC 3014369 LY % 28.5 % 11/10/2013 CBC 9950798 MON % 10.2 % 11/10/2013 CBC 5754308 EOS % 2.1 % 11/10/2013 CBC 4041164 BASO % 1.1 % 11/10/2013 CBC 1403473 RDW 13.3 % 11/10/2013 CBC 4941520 ABS OANH 4.88 10e9/L 11/10/2013 CBC 1850998 ABS LYMPH 2.39 10e9/L 11/10/2013 CBC 2055748 ABS MONO 0.86 10e9/L 11/10/2013 CBC 9765967 ABS EOS 0.18 10e9/L 11/10/2013 CBC 6753897 ABS BASO 0.09 10e9/L 11/10/2013 CBC 1424445 RDW-SD 40.7 fL 11/10/2013 CHEM 14 2732037 AST 17 U/L 11/10/2013 CHEM 14 7403096 ALT 17 IU/L 11/10/2013 CHEM 14 9490539 BUN 15 MG/DL 11/10/2013 CHEM 14 3008864 ALBUMIN 4.3 GM/DL 11/10/2013 CHEM 14 7194720 CHLORIDE 103 MMOL/L 11/10/2013 CHEM 14 6440281 BILI TOT 0.6 MG/DL 11/10/2013 CHEM 14 2333359 ALK PHOS 104 U/L 11/10/2013 CHEM 14 0534316 SODIUM 137 MMOL/L 11/10/2013 CHEM 14 3282029 CREATININE 1.08 MG/DL 11/10/2013 CHEM 14 6236937 CALCIUM 8.9 MG/DL 11/10/2013 CHEM 14 6535952 POTASSIUM 4.0 MMOL/L 11/10/2013 CHEM 14 9988613 PROT TOT 7.0 GM/DL 11/10/2013 CHEM 14 5387630 GLUCOSE 84 MG/DL 11/10/2013 CHEM 14 4050279 BICARB 28 MMOL/L 11/10/2013 CHEM 14 8653584 ANION GAP 6 MEQ/L 11/10/2013 Review of [...] clear 12/01/2017 None Full Exam - General 1995 Ears/Nose/Throat [...] accomodation 11/09/2012 None Full Exam - General 1994 Ears/Nose/Throat otoscopic exam Overall: tympanic membranes clear 11/09/2012 None Full Exam - General 1994 Ears/Nose/Throat [...] Procedure Codes Date THER/PROPH/DIAG INJ SC/IM CPT-4: 75000 10/06/2017 TRIAMCINOLONE ACET INJ NOS CPT-4: J3301 10/06/2017 THER/PROPH/DIAG INJ SC/IM CPT-4: 89721 10/31/2015 TRIAMCINOLONE ACET INJ NOS CPT-4: J3301 10/31/2015 ROUTINE VENIPUNCTURE CPT-4: 02278 11/10/2013 PRESCRIP TRANSMIT VIA ERX SY CPT-4: G8553 02/23/2013 PRESCRIP TRANSMIT VIA ERX SY CPT-4: G8553 11/30/2012 PRESCRIP TRANSMIT VIA ERX SY CPT-4: G8553 11/09/2012 Vital Signs Date Vital 04/15/2018 Blood Pressure 1: 150/88 Code : 8480-6 BMI: 28.1 Code : 85809-1 Heart Rate 1 : 84 bpm Height: 5'10" SpO2: 98% Weight: 196 lbs 12/01/2017 Blood Pressure 1: 154/78 Code : 8480-6 BMI: 28.4 Code : 10881-5 Heart Rate 1 : 87 bpm Height: 5'10" SpO2: 98% Weight: 198 lbs 10/06/2017 Blood Pressure 1: 136/74 Code : 8480-6 BMI: 38.0 Code : 11677-2 Heart Rate 1 : 75 bpm Height: 5' SpO2: 95% Temperature: 36.8 (C) / 98.2 (F) Weight: 194 lbs 8 oz 06/23/2017 Blood Pressure 1: 152/82 Code : 8480-6 BMI: 28.3 Code : 28329-1 Heart Rate 1 : 58 bpm Height: 5'10" SpO2: 96% Weight: 197 lbs 04/14/2017 Blood Pressure 1: 146/84 Code : 8480-6 BMI: 27.5 Code : 93597-4 Heart Rate 1 : 69 bpm Height: 5'10" SpO2: 95% Weight: 192 lbs 02/24/2017 Blood Pressure 1: 146/60 Code : 8480-6 BMI: 27.4 Code : 15941-3 Heart Rate 1 : 61 bpm Height: 5'10" SpO2: 97% Weight: 191 lbs 05/07/2016 Blood Pressure 1: 146/66 Code : 8480-6 BMI: 26.3 Code : 56234-0 Heart Rate 1 : 69 bpm Height: 5'10" SpO2: 97% Weight: 183 lbs 03/02/2016 Blood Pressure 1: 190/108 Code: 8480-6 Blood Pressure 1: 170/100 Code: 8480-6 BMI: 26.5 Code: 61637-7 Heart Rate 1: 76 bpm Height: 5'10" SpO2: 98% Weight: 185 lbs 10/31/2015 Blood Pressure 1: 142/90 Code : 8480-6 Blood Pressure 1: 126/86 Code: 8480-6 BMI: 26.8 Code: 72333-6 Heart Rate 1: 99 bpm Height: 5'10" SpO2: 95% Temperature: 37.0 (C) / 98.6 (F) Weight: 187 lbs 01/25/2014 Blood Pressure 1: 180/90 Code : 8480-6 BMI: 26.3 Code : 56990-0 Heart Rate 1 : 76 bpm Height: [...] Code : 8480-6 BMI: 25.7 Code : 60021-9 Heart Rate 1 : 84 bpm Height: 5'10" Weight: 179 lbs 02/23/2013 Blood Pressure 1: 138/90 Code : 8480-6 BMI: 27.0 Code : 12210-3 Heart Rate 1 : 88 bpm Height: 5'10" Temperature: 37.0 (C) / 98.6 (F) Weight: 188 lbs 01/12/2013 Blood Pressure 1: 136/78 Code : 8480-6 BMI: 26.7 Code : 88368-7 Heart Rate 1 : 96 bpm Height: 5'10" Weight: 186 lbs 11/30/2012 Blood Pressure 1: 170/90 Code : 8480-6 BMI: 26.8 Code : 88760-1 Heart Rate 1 : 80 bpm Height: 5'10" Weight: 187 lbs 11/09/2012 Blood Pressure 1: 178/84 Code : 8480-6 BMI: 26.5 Code : 76255-7 Heart Rate 1 : 86 bpm Height: [...] pain Quality recurrent 05/10/2013 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 PATIENT, LEVEL III Diagnosis: Paresthesia of skin[ICD10: R20.2] Diagnosis: Cervicalgia[ICD10: M54.2] Diagnosis: Essential (primary) hypertension[ICD10: I10] Gayle Fajardo MD, [facility] CPT-4: 28997 04/15/2018 ([id number]) PER PM REEVAL EST PAT 65+ YR Diagnosis: Benign prostatic hyperplasia with lower urinary tract symptoms[ICD10 : N40.1] Diagnosis: Essential (primary) hypertension[ICD10: I10] Gayle Fajardo MD, [facility] CPT-4: 41495 12/01/2017 [id number] EST. PATIENT, LEVEL IV Diagnosis: Other acute sinusitis[ICD10: J01.80] Diagnosis: Other allergic rhinitis[ICD10: J30.89] Diagnosis: Other medical terminologist (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[ICD10: Z79.899] Gayle Fajardo MD, [facility] CPT-4: 26565 10/06/2017 [id number] EST. PATIENT, LEVEL IV Diagnosis: Gastro-esophageal reflux disease without esophagitis[ICD10: K21.9] Diagnosis: Pain in right elbow[ICD10: M25.521] Diagnosis: Other intermediate (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[ICD10: Z79.899] Gayle Fajardo MD, [facility] CPT-4: 20827 06/23/2017 [id number] EST. PATIENT, LEVEL IV Diagnosis: Other conditions associated with Lyme disease[ICD10: A69.29] Diagnosis: Other dorsalgia[ICD10: M54.89] Gayle Fajardo MD, [facility] CPT-4 : 19307 04/14/2017 [id number] EST. PATIENT, LEVEL IV Diagnosis: Pain in left elbow[ICD10: M25.522] Diagnosis: Pain in right elbow[ICD10: M25.521] Diagnosis: Pain in joints of left hand[ICD10: M25.542] Diagnosis: Pain in joints of right hand[ICD10: M25.541] Diagnosis: Other fatigue[ICD10: R53.83] Diagnosis: Other medical terminologist (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[ICD10: Z79.899] Gayle Fajardo MD, [facility] CPT-4: 58269 02/24/2017 ([id number]) 12159 EST. PATIENT, LEVEL III Diagnosis: Essential (primary) hypertension[ICD10: I10] Jennifer Fajardo MD, [facility] CPT-4: 53045 05/07/2016 ([id number]) 68370 EST. PATIENT, LEVEL IV Diagnosis: Essential (primary) hypertension[ICD10: I10] Diagnosis: Impaired fasting glucose[ICD10: R73.01] Diagnosis: Other intermediate (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[ICD10: Z79.899] Jennifer Fajardo MD, [facility] CPT-4: 26956 03/02/2016 ([id number]) 16363 EST. PATIENT, LEVEL IV Diagnosis: Essential (primary) hypertension[ICD10: I10] Diagnosis: Mixed hyperlipidemia[ICD10: E78.2] Diagnosis: Other intermediate (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[ICD10: Z79.899] Diagnosis: Impaired fasting glucose[ICD10: R73.01] Diagnosis: Acute recurrent maxillary sinusitis[ICD10: J01.01] Jennifer Fajardo MD, [facility] CPT-4: 25692 10/31/2015 ([id number]) 62109 EST. PATIENT, LEVEL III Diagnosis: CELLULITIS[ICD9: 682.9] Mahnaz Fajardo MD, [facility] CPT-4: 31808 01/25/2014 ([id number]) 75558 EST. PATIENT, LEVEL III Diagnosis: Acute maxillary sinusitis[ICD9: 461.0] Diagnosis: Cough[ICD9: 786.2] Mahnaz Fajardo MD, [facility] CPT-4: 02146 11/29/2013 ([id number]) 83911 EST. PATIENT, LEVEL III Diagnosis: ESSENTIAL HYPERTENSION[SNOMED: 07240139] Diagnosis: Encounter for long-term (current) use of other high-risk medications[ ICD9: V58.69] Jennifer Fajardo MD, [facility] CPT-4: 66288 11/10/2013 ([id number]) 30572 EST. PATIENT, LEVEL IV Diagnosis: ESSENTIAL HYPERTENSION[SNOMED: 09626813] Diagnosis: HYPERLIPIDEMIA[ICD9: 272.4] Mahnaz Fajardo MD, [facility] CPT- 4: 39194 05/10/2013 ([id number]) 62275 EST. PATIENT, LEVEL III Diagnosis: Esophageal reflux[ICD9: 530.81] Diagnosis: Sore throat[ICD9: 462] Diagnosis: Allergic rhinitis[ICD9: 477.9] Mahnaz Fajardo MD, [facility] CPT- 4: 99978 02/23/2013 ([id number]) 42665 EST. PATIENT, LEVEL III Diagnosis: ESSENTIAL HYPERTENSION[SNOMED: 41632520] Diagnosis: HYPERLIPIDEMIA[ICD9: 272.4] Mahnaz Fajardo MD, [facility] CPT- 4: 70459 01/12/2013 ([id number]) 04877 EST. 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 04/15/2018 [phone] [facility] ([facility] min[facility] Moderate 04/15/2018 Patient Education: Patient Medication Summary Completed 04/15/2018 Ref[facility]: [facility] [address] [facility] Referral Initiated 12/16/2017 Visit Plan: Hypertension - [...] Dr. Hdez 12/01/2017 Appointment: Gayle Morris WPtel: [address] [place], [place] [address] (30 min) [facility] 12/01/2017 Patient Education: Patient Medication Summary Completed 12/01/2017 Care Plan: Referral Order SNOMED-CT : 519061949 Pending 12/01/2017 Visit Plan: Sinusitis - Pt [...] allergy spray. 10/06/2017 Appointment: Gayle Morris WPtel: [facility] (30 min) Complex 10/06/2017 Patient Education: Patient Medication Summary Completed 10/06/2017 Care Plan: Pt Approved 10/06/2017 Referral: Adrialilo Kobe [address] [facility] Referral Initiated 07/06/2017 Visit Plan: Esophageal Reflux [...] not improve. 06/23/2017 Appointment: Gayle Morris WPtel: [phone] [facility] (30 min) Complex 06/23/2017 Patient Education: Patient Medication Summary Completed 06/23/2017 Care Plan: Referral Order SNOMED-CT : 695824056 Pending 06/23/2017 Visit Plan: Back pain, lyme [...] Pain Completed 04/14/2017 Appointment: Gayle Morris WPtel: [facility] (30 min) Complex 04/13/2017 Visit Plan: Joint pain, back pain - will check labs - The pt is to use prn antiinflammatories to manage acute pain. The patient is to call the office if the pain is worsening or does not improve. 02/24/2017 Appointment: Gayle Morris WPtel: [phone] [facility] (30 min) Complex 02/24/2017 Patient Education: Patient Medication Summary Completed 02/24/2017 Patient Education: Patient Medication Summary Completed 11/20/2016 Care Plan: Pt Pending 11/20/2016 Appointment: Jennifer Perez WPtel: [phone] (30 min) Complex 11/05/2016 Visit Plan: Hypertension - well controlled - continue with current medications, continue with no added salt diet. Pt has been encouraged to exercise daily. The pt has been advised to call the office if there are any acute concerns about change in blood pressure readings at home. 05/07/2016 Appointment: Jennifer Perez WPtel: [phone] [phone] (30 min) Complex 05/07/2016 Patient Education: Patient [...] 03/02/2016 Care Plan: Referral Order SNOMED-CT : 374013098 Pending 03/02/2016 Visit Plan: Hypertension - well [...] of pressure. 01/25/2014 Appointment: Mahnaz Fajardo WPtel: [facility] [place] Other 01/25/2014 Patient Education: Patient Medication Summary Completed 01/25/2014 Appointment: Mahnaz Fajardo WPtel: [phone] [facility] [place] Sick 11/29/2013 Patient Education: Patient Medication Summary [...] Coumadin-check PT/INR 11/10/2013 Appointment: Jennifer Perez WPtel: [phone] Follow up 11/10/2013 Patient Education: Patient Medication Summary Completed 11/10/2013 Patient Education: Hypertension Completed 11/10/2013 Appointment: Mahnaz Fajardo WPtel: [facility] Follow up 11/08/2013 Visit Plan: Hypertension - [...] to medications. 05/10/2013 Appointment: Mahnaz Fajardo WPtel: [facility] Follow up 05/10/2013 Patient Education: Patient Medication Summary Completed 05/10/2013 Patient Education: Hypertension Completed 05/10/2013 Appointment: Mahnaz Fajardo WPtel: [address] [place], [place] [phone] Sick 02/24/2013 Visit Plan: Esophageal Reflux - [...] month. 01/12/2013 Appointment: Mahnaz [facility]ajardo [facility]el[phone] Follow up 01/12/2013 Patient Education: Patient Medication Summary Completed 01/12/2013 Patient Education: Hypertension Completed 01/12/2013 Appointment: Mahnaz Fajardo [facility]Ptel[phone] Follow up 01/11/2013 Visit Plan: Nerve pain [...] to assure normal liver response to medications. Wilsey red Krill oil twice daily 11/30/2012 Appointment: Mahnaz Fajardo WPtel: [address] [place], [place] [phone] Follow up 11/30/2012 Patient Education: Patient Medication [...] suspect arthritis. 11/09/2012 Appointment: Mahnaz Fajardo WPtel: [address] [place], [place] [phone] New Patient 11/09/2012 Patient Education: Patient Medication Summary Completed 11/09/2012 Patient Education: Hypertension Completed 11/09/2012 Referral: Kobe Benjamin [address] [facility] Referral Initiated Ref[facility]: Fernando [phone] [facility] Referral Initiated Referral: Opal Reddy Referral Appointment Requested Instructions Comment I would like to check a tick panel for [place] Spotted Fever - I will give you a script for the blood draw let me know where you get it done so we can look for results. I would like to start doxycycline - I can send augmentin for you to start, but the only treatment for [place] Spotted Fever is Doxycycline. Massage from [facility] [...] Hyperlipidemia - check lipids in one month. Wilsey red Krill oil twice daily increase the [...] to assure normal liver response to medications. Wilsey red Krill oil twice daily . Hypertension [...] to Dr. Benjamin for colonoscopy and EGD [facility] . Esophageal Reflux - the patient [...]
--- OUTSIDE RECORDS SUMMARY | 2018-11-11 10:18 | XMS REPORT | Continuity of Care Document ---
Author Author [facility] Organization [facility] Address Unknown Phone Unavailable Allergies Active Description Code Type Severity Reaction Onset Reported/Identified Relationship to Patient Clinical Status Yes aspirin [id number] Drug Allergy Mild HIVES 12/23/2009 Medications There [...] STENOSIS OF BILATERAL DACOSTA 04/14/2016 [facility] F[facility] CCDS Ot R07.89 OTHER CHEST PAIN 04/15/2016 BUSHRA JAY FACC, ALI FACP CCDS Ot D68.51 ACTIVATED PROTEIN C RESISTANCE 04/15/2016 BUSHRA JAY FACC, ALI FACP CCDS Ot I10 ESSENTIAL (PRIMARY) HYPERTENSION 04/15/2016 [facility] FACP CCDS Ot 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 04/15/2016 BUSHRA JAY [facility], ALI FACP CCDS Ot R07.89 OTHER CHEST PAIN 05/08/2016 BUSHRA JAY [facility], ALI FACP CCDS Ot D68.51 ACTIVATED PROTEIN C RESISTANCE 05/08/2016 BUSHRA JAY [facility], ALI FACP CCDS Ot I10 ESSENTIAL (PRIMARY) HYPERTENSION 05/08/2016 BUSHRA JAY [facility], ALI FACP CCDS Ot 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 05/08/2016 BUSHRA JAY [facility], ALI FACP CCDS Ot R07.89 OTHER CHEST PAIN 05/13/2016 BUSHRA JAY [facility], ALI FACP CCDS Ot D68.51 ACTIVATED PROTEIN C RESISTANCE 05/13/2016 BUSHRA JAY [facility], ALI FACP CCDS Ot I10 ESSENTIAL (PRIMARY) HYPERTENSION 05/13/2016 BUSHRA JAY FAC, ALI FACP CCDS Ot 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 05/13/2016 BUSHRA JAY FAC, ALI FACP CCDS Ot R07.89 OTHER CHEST [...] ALI FACP CCDS Ot R53.81 OTHER MALAISE 04/14/2018 BUSHRA JAY FACC, ALI FACP CCDS Ot D68.51 ACTIVATED PROTEIN C RESISTANCE 04/14/2018 BUSHRA JAY FACC, ALI FACP CCDS Ot I10 ESSENTIAL (PRIMARY) HYPERTENSION 04/14/2018 [facility] FACP CCDS Ot 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 04/14/2018 [facility], [facility]I FACP CCDS Ot R07.89 OTHER CHEST PAIN 04/14/2018 BUSHRA JAY [facility], ALI FACP CCDS Ot D68.51 ACTIVATED PROTEIN C RESISTANCE 04/14/2018 BUSHRA JAY FACC, ALI FACP CCDS Ot I08.1 RHEUMATIC DISORDERS OF BOTH MITRAL AND T 04/14/2018 [facility] FACP CCDS Ot I10 ESSENTIAL (PRIMARY) HYPERTENSION 04/14/2018 [facility]I FACP CCDS Ot R06.02 SHORTNESS OF BREATH 04/14/2018 [facility], [facility]I FACP CCDS Ot R53.81 OTHER MALAISE 04/14/2018 BUSHRA JAY [facility], ALI FACP CCDS Ot D68.51 ACTIVATED PROTEIN C RESISTANCE 04/14/2018 BUSHRA JAY FACC, ALI FACP CCDS Ot I10 ESSENTIAL (PRIMARY) HYPERTENSION 04/14/2018 BUSHRA JAY FACC, ALI FACP CCDS Ot R06.02 SHORTNESS OF BREATH 04/14/2018 BUSHRA JAY FACC, ALI FACP CCDS Ot R53.81 OTHER MALAISE 04/14/2018 BUSHRA JAY FACC, ALI FACP CCDS Ot D68.51 ACTIVATED PROTEIN C RESISTANCE 04/14/2018 BUSHRA JAY FACC, ALI FACP CCDS Ot I10 ESSENTIAL (PRIMARY) HYPERTENSION 04/14/2018 BUSHRA JAY FAC, ALI FACP CCDS Ot 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 04/14/2018 BUSHRA JAY FACC, ALI FACP CCDS Ot R07.89 OTHER CHEST PAIN 04/14/2018 BUSHRA JAY FACC, ALI FACP CCDS Ot D68.51 ACTIVATED PROTEIN C RESISTANCE 04/14/2018 BUSHRA JAY FACC, ALI FACP CCDS Ot I08.1 RHEUMATIC DISORDERS OF BOTH MITRAL AND T 04/14/2018 BUSHRA JAY FAC, ALI FACP CCDS Ot I10 ESSENTIAL (PRIMARY) HYPERTENSION 04/14/2018 BUSHRA JAY FAC, ALI FACP CCDS Ot R06.02 SHORTNESS OF BREATH 04/14/2018 BUSHRA JAY FAC, ALI FACP CCDS Ot R53.81 OTHER MALAISE 04/14/2018 BUSHRA JAY FAC, ALI FACP CCDS Ot D68.51 ACTIVATED PROTEIN C RESISTANCE 04/14/2018 BUSHRA JAY [facility], ALI FACP CCDS Ot I10 ESSENTIAL (PRIMARY) HYPERTENSION 04/14/2018 BUSHRA JAY [facility], ALI FACP CCDS Ot R06.02 SHORTNESS OF BREATH 04/14/2018 BUSHRA JAY [facility], ALI FACP CCDS Ot R53.81 OTHER MALAISE 04/18/2018 MICHELLE ALVA REDEVELOPMENT SPECIALIST Ot M47.812 SPONDYLOSIS W/O MYELOPATHY OR RADICULOPA 04/18/2018 MICHELLE ALVA REDEVELOPMENT SPECIALIST Ot Z98.1 ARTHRODESIS STATUS 04/18/2018 MICHELLE ALVA REDEVELOPMENT SPECIALIST Ot M47.812 SPONDYLOSIS W/O MYELOPATHY OR RADICULOPA 04/18/2018 MICHELLE ALVA REDEVELOPMENT SPECIALIST Ot Z98.1 ARTHRODESIS STATUS 04/18/2018 DARIEL LAGUNA MD Ot D68.2 HEREDITARY DEFICIENCY OF OTHER CLOTTING 04/18/2018 DARIEL LAGUNA MD Ot I10 ESSENTIAL (PRIMARY) HYPERTENSION 04/18/2018 DARIEL LAGUNA MD Ot I73.9 PERIPHERAL VASCULAR DISEASE, UNSPECIFIED 04/18/2018 DARIEL LAGUNA MD Ot R20.2 PARESTHESIA OF SKIN 04/18/2018 DARIEL LAGUNA MD Ot R42 DIZZINESS AND GIDDINESS 04/18/2018 DARIEL LAGUNA MD Ot Z79.01 RAILWAY SIGNALLING ENGINEER (CURRENT) USE OF ANTICOAGULANT 04/18/2018 DARIEL LAGUNA MD Ot Z79.52 RAILWAY SIGNALLING ENGINEER (CURRENT) USE OF SYSTEMIC STER 04/18/2018 DARIEL LAGUNA MD Ot Z82.49 FAMILY HX OF ISCHEM HEART DIS AND OTH DI 04/18/2018 DARIEL LAGUNA MD Ot Z86.718 PERSONAL HISTORY OF OTHER VENOUS THROMBO 04/18/2018 DARIEL LAGUNA MD Ot Z87.19 PERSONAL HISTORY OF OTHER DISEASES OF TH 04/18/2018 DARIEL LAGUNA MD Ot Z88.6 ALLERGY STATUS TO ANALGESIC AGENT STATUS 04/18/2018 DARIEL LAGUNA MD Ot Z95.5 PRESENCE OF CORONARY ANGIOPLASTY IMPLANT 04/20/2018 DARIEL LAGUNA MD Ot D68.2 HEREDITARY DEFICIENCY OF OTHER CLOTTING 04/20/2018 DARIEL LAGUNA MD Ot I10 ESSENTIAL (PRIMARY) HYPERTENSION 04/20/2018 DARIEL LAGUNA MD Ot I73.9 PERIPHERAL VASCULAR DISEASE, UNSPECIFIED 04/20/2018 DARIEL LAGUNA MD Ot R20.2 PARESTHESIA OF SKIN 04/20/2018 DARIEL LAGUNA MD, Ot R42 DIZZINESS AND GIDDINESS 04/20/2018 DARIEL LAGUNA MD Ot Z79.01 RAILWAY SIGNALLING ENGINEER (CURRENT) USE OF ANTICOAGULANT 04/20/2018 DARIEL LAGUNA MD Ot Z79.52 RAILWAY SIGNALLING ENGINEER (CURRENT) USE OF SYSTEMIC STER 04/20/2018 DARIEL LAGUNA MD Ot Z82.49 FAMILY HX OF ISCHEM HEART DIS AND OTH DI 04/20/2018 DARIEL LAGUNA MD Ot Z86.718 PERSONAL HISTORY OF OTHER VENOUS THROMBO 04/20/2018 DARIEL LAGUNA MD Ot Z87.19 PERSONAL HISTORY OF OTHER DISEASES OF TH 04/20/2018 DARIEL LAGUNA MD Ot Z88.6 ALLERGY STATUS TO ANALGESIC AGENT STATUS 04/20/2018 DARIEL LAGUNA MD T Ot Z95.5 PRESENCE OF CORONARY ANGIOPLASTY IMPLANT 04/25/2018 MICHELLE ALVA REDEVELOPMENT SPECIALIST Ot M46.86 OTHER SPECIFIED INFLAMMATORY SPONDYLOPAT 04/25/2018 MICHELLE ALVA REDEVELOPMENT SPECIALIST Ot M47.812 SPONDYLOSIS W/O MYELOPATHY OR RADICULOPA 04/25/2018 MICHELLE ALVA REDEVELOPMENT SPECIALIST Ot M48.02 SPINAL STENOSIS, CERVICAL REGION 04/25/2018 MICHELLE ALVA REDEVELOPMENT SPECIALIST Ot 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 04/25/2018 MICHELLE ALVA REDEVELOPMENT SPECIALIST Ot Z98.1 ARTHRODESIS STATUS 05/13/2018 MICHELLE ALVA REDEVELOPMENT SPECIALIST Ot M46.86 OTHER SPECIFIED INFLAMMATORY SPONDYLOPAT 05/13/2018 MICHELLE ALVA REDEVELOPMENT SPECIALIST Ot M47.812 SPONDYLOSIS W/O MYELOPATHY OR RADICULOPA 05/13/2018 MICHELLE ALVA REDEVELOPMENT SPECIALIST Ot M48.02 SPINAL STENOSIS, CERVICAL REGION 05/13/2018 MICHELLE ALVA REDEVELOPMENT SPECIALIST Ot 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 05/13/2018 MICHELLE ALVA REDEVELOPMENT SPECIALIST Ot Z98.1 ARTHRODESIS STATUS 05/17/2018 BAIMA, MELCHOR L PACK OUT OPERATOR Ot I10 ESSENTIAL (PRIMARY) HYPERTENSION 05/24/2018 BAIMA, MELCHOR L PACK OUT OPERATOR Ot I10 ESSENTIAL (PRIMARY) HYPERTENSION 05/24/2018 BAIMA, MELCHOR L PACK OUT OPERATOR Ot 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 05/24/2018 BAIMA MELCHOR L PACK OUT OPERATOR Ot I70.1 ATHEROSCLEROSIS OF RENAL ARTERY 05/24/2018 BAIMA, MELCHRO L PACK OUT OPERATOR Ot N28.1 CYST OF KIDNEY, ACQUIRED 06/09/2018 BAIMA, MELCHOR L PACK OUT OPERATOR Ot I10 ESSENTIAL (PRIMARY) HYPERTENSION 06/09/2018 BAIMA, MELCHOR L PACK OUT OPERATOR Ot 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 Results Test Result Range Complete blood count (CBC) with automated white blood cell (WBC) differential - 04/14/18 08:30 Blood leukocytes automated count (number/volume) 8.4 10*3/uL 4.3-11.0 Blood erythrocytes automated count (number/volume) 5.06 10*6/uL 4.35-5.85 Venous blood hemoglobin measurement (mass/volume) 14.8 g/dL 13.3-17.7 Blood hematocrit (volume fraction) 43 % 40-54 Automated erythrocyte mean corpuscular volume 84 [foz_us] 80-99 Automated erythrocyte mean corpuscular hemoglobin (mass per erythrocyte) 29 pg 25-34 Automated erythrocyte mean corpuscular hemoglobin concentration measurement ( mass/volume) 35 g/dL 32-36 Automated erythrocyte distribution width ratio 13.5 % 10.0-14.5 Automated blood platelet count (count/volume) 229 10*3/uL 130-400 Automated blood platelet mean volume measurement 10.6 [foz_us] 7.4-10.4 Automated blood neutrophils/100 leukocytes 61 % 42-75 Automated blood lymphocytes/100 leukocytes 27 % 12-44 Blood monocytes/100 leukocytes 8 % 0-12 Automated blood eosinophils/100 leukocytes 3 % 0-10 Automated blood basophils/100 leukocytes 1 % 0-10 Blood neutrophils automated count (number/volume) 5.1 10*3 1.8-7.8 Blood lymphocytes automated count (number/volume) 2.2 10*3 1.0-4.0 Blood monocytes automated count (number/volume) 0.7 10*3 0.0-1.0 Automated eosinophil count 0.2 10*3/uL 0.0-0.3 Automated blood basophil count (count/volume) 0.1 10*3/uL 0.0-0.1 PT panel in platelet poor plasma by coagulation assay - 04/14/18 08:30 Prothrombin time (PT) in platelet poor plasma by coagulation assay 30.2 s 12.2-14.7 INR in platelet poor plasma or blood by coagulation assay 2.9 0.8-1.4 Activated partial thromboplastin time (aPTT) in platelet poor plasma bycoagulation assay - 04/14/18 08:30 Activated partial thromboplastin time (aPTT) in platelet poor plasma bycoagulation assay 45 s 24-35 Comprehensive metabolic panel - 04/14/18 08:30 Serum or plasma sodium measurement (moles/volume) 140 mmol/L 135-145 Serum or plasma potassium measurement (moles/volume) 3.8 mmol/L 3.6-5.0 Serum or plasma chloride measurement (moles/volume) 109 mmol/L 98-107 Carbon dioxide 24 mmol/L 21-32 Serum or plasma anion gap determination (moles/volume) 7 mmol/L 5-14 Serum or plasma urea nitrogen measurement (mass/volume) 15 mg/dL 7-18 Serum or plasma creatinine measurement (mass/volume) 1.27 mg/dL 0.60-1.30 Serum or plasma urea nitrogen/creatinine mass ratio 12 NRG Serum or plasma creatinine measurement with calculation of estimated glomerular filtration rate 56 NRG Serum or plasma glucose measurement (mass/volume) 148 mg/dL 70-105 Serum or plasma calcium measurement (mass/volume) 9.8 mg/dL 8.5-10.1 Serum or plasma total bilirubin measurement (mass/volume) 0.6 mg/dL 0.1-1.0 Serum or plasma alkaline phosphatase measurement (enzymatic activity/volume) 101 U/L 40-136 Serum or plasma aspartate aminotransferase measurement (enzymatic activity/ volume) 20 U/L 5-34 Serum or plasma alanine aminotransferase measurement (enzymatic activity/volume ) 22 U/L 0-55 Serum or plasma protein measurement (mass/volume) 7.1 g/dL 6.4-8.2 Serum or plasma albumin measurement (mass/volume) 3.9 g/dL 3.2-4.5 Magnesium - 04/14/18 08:30 Magnesium 1.9 mg/dL 1.8-2.4 Serum or plasma troponin i.cardiac measurement (mass/volume) - 04/14/18 08:30 Serum or plasma troponin i.cardiac measurement (mass/volume) < ng/ mL <0.30 Serum or plasma thyrotropin measurement by detection limit <=0.05 miu/l (units/ volume) - 04/14/18 08:30 Serum or plasma thyrotropin measurement by detection limit <=0.05 miu/l (units/ volume) 0.69 u[iU]/mL 0.35-4.94 Complete urinalysis with reflex to culture - 04/14/18 09:15 Urine color determination YELLOW NRG Urine clarity determination CLEAR NRG Urine pH measurement by test strip 5 5-9 Specific gravity of urine by test strip 1.020 1.016- 1.022 Urine protein assay by test strip, semi-quantitative 1+ NEGATIVE Urine glucose detection by automated test strip NEGATIVE NEGATIVE Erythrocytes detection in urine sediment by light microscopy NEGATIVE NEGATIVE Urine ketones detection by automated test strip NEGATIVE NEGATIVE Urine nitrite detection by test strip NEGATIVE NEGATIVE Urine total bilirubin detection by test strip NEGATIVE NEGATIVE Urine urobilinogen measurement by automated test strip (mass/volume) NORMAL NORMAL Urine leukocyte esterase detection by dipstick 1+ NEGATIVE Automated urine sediment erythrocyte count by microscopy (number/high power field) NONE NRG Automated urine sediment leukocyte count by microscopy (number/high power field ) RARE NRG Bacteria detection in urine sediment by light microscopy TRACE NRG Squamous epithelial cells detection in urine sediment by light microscopy RARE NRG Crystals detection in urine sediment by light microscopy NONE NRG Casts detection in urine sediment by light microscopy NONE NRG Mucus detection in urine sediment by light microscopy NEGATIVE NRG Complete urinalysis with reflex to culture NO NRG Encounters ACCT No. Visit Date/Time Discharge Status Pt. Type Provider Facility Loc./Unit Complaint [id number] 11/10/2018 13:23:00 11/10/2018 14:01:00 DIS Outpatient YVES JAY, MICHELINE Pulido [facility] PREOP RIGHT CATARACT [id number] 05/20/2018 10:00:00 05/20/2018 23:59:59 CLS Outpatient MELCHOR ZAVALAP [facility] RAD I10 HTN [id number] 04/23/2018 10:01:00 04/23/2018 23:59:59 CLS Outpatient MICHELLE ALVA APRN [facility] RAD NECK PAIN,NUMBNESS [id number] 04/15/2018 10:13:00 04/15/2018 23:59:59 CLS Outpatient MICHELLE ALVA APRN [facility] RAD NECK PAIN, PARASTHESIA [id number] 04/14/2018 08:16:00 04/14/2018 12:27:00 DIS Outpatient LUZ ELENA JAY, DARIEL Patricio [facility] ER CHEST PRESSURE,LEFT SIDE NUMB [id number] 04/07/2018 09:46:00 04/07/2018 23:59:59 CLS Outpatient BUSHRA JAY FACC, ALI FACP CCDS [facility] CARD MALAISE,SOB, UNCONTROLLED HTN [id number] 03/31/2018 07:14:00 03/31/2018 23:59:59 CLS Outpatient BUSHRA JAY FACC, ALI FACP CCDS [facility] CARD MALAISE,SOB, UNCONTROLLED HTN [id number] 04/14/2016 07:23:00 04/14/2016 23:59:59 CLS Outpatient BUSHRA JAY FACC, ALI FACP CCDS [facility] CARD UNCONTROLLED HTN,CHEST DISCOMFORT [id number] 08/16/2013 10:01:00 08/17/2013 17:30:00 DIS Inpatient ALYCE CASTANEDA MD [facility] CSD [id number] 11/11/2018 12:00:00 PEN Preadmit MICHELINE MARINELLI MD [facility] SDC RIGHT CATARACT [id number] 04/14/2016 07:23:00 Document Registration [id number] 04/14/2016 07:22:00 Document Registration [id number] 01/11/2013 08:30:00 Document Registration [id number] 01/04/2013 07:34:00 Document Registration [id number] 11/23/2012 08:22:00 Document Registration [id number] 11/14/2012 07:48:00 Document Registration [id number] 06/29/2012 18:19:00 Document Registration [id number] 06/28/2012 12:58:00 Document Registration [id number] 10/16/2011 07:49:00 Document Registration [id number] 06/30/2011 13:18:00 Document Registration [id number] 04/27/2011 06:59:00 Document Registration [id number] 12/25/2010 05:42:00 Document Registration [id number] 12/22/2010 07:54:00 Document Registration 0000 06/23/2017 19:07:32 06/23/2017 23:59:59 CLS Outpatient
--- NOTE | 2018-11-11 13:11 | Anesthesia-General Post-Op ---
MAC Patient Condition Mental Status/LOC: Same as Preop Cardiovascular: Satisfactory Nausea/Vomiting: Absent Respiratory: Satisfactory Pain: Controlled Complications: Absent Post Op Complications Complications None Follow Up Care/Instructions Patient Instructions None needed. Anesthesiology Discharge Order Discharge Order Patient is doing well, no complaints, stable vital signs, no apparent adverse anesthesia problems. No complications reported per nursing. MAGNUS MENDOZA CRNA Nov 11, 2018 13:11
== END 2018-11-11 09:35 | disposition home or self-care (01) ==
LOC: SDC 07:49
PROVIDERS: ATTEND Specialist
DX: H25.11 Age-related nuclear cataract, right eye (principal); H57.03 Miosis; H21.81 Floppy iris syndrome; I10 Essential (primary) hypertension; D68.2 Hereditary deficiency of other clotting factors; Z79.899 Other long term (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; Z79.01 Long term (current) use of anticoagulants

== ENCOUNTER 2018-11-24 10:15 | Outpatient (CLI) | payer MEDICARE | END 2018-11-24 10:21 | LOC: PREOP 10:15 | PROVIDERS: ATTEND Specialist | DX: Z01.818 Encounter for other preprocedural examination (principal) ==

== ENCOUNTER 2018-11-25 08:19 | Day surgery (SDC) | payer MEDICARE ==
[~2018-11-25] VITALS: Ht 172.7 cm; Wt 90.7 kg
[2018-11-25] MEDS: TETRACAINE 0.5% OPHTH SOLN 4 ML BTL (SINGLE DOSE ONLY) OU PRN ×4 (08:39→08:55)
[2018-11-25 08:40] VITALS: BP 155/80
[2018-11-25] MEDS ORDERED: MOXIFLOXACIN OPHTH SOLN 5 MG/ML 0.3 ML SYRINGE OP ONE (08:45)
[2018-11-25] MEDS ORDERED: LIDOCAINE PF 1% 2 ML AMP IR PRN (08:45)
[2018-11-25] MEDS ORDERED: TIMOLOL MALEATE 0.5% 5 ML (TIMOPTIC) BTL OU PRN (08:45)
[2018-11-25] MEDS: PHENYLEPHRINE 10% OPHTH (NEO-SYN) 5 ML BTL OU SCH ×3 (08:45→08:55)
[2018-11-25] MEDS ORDERED: POVIDONE (BETADINE) OPHTH SOLN 5% 30 ML OP ONE (08:45)
[2018-11-25] MEDS: CYCLOPENTOLATE 1% (CYCLOGYL) 2 ML DROPS OP SCH ×3 (08:45→08:55)
[2018-11-25] MEDS ORDERED: MIDAZOLAM 2 MG/2 ML (VERSED) VIAL ONE (08:53)
--- NOTE | 2018-11-25 09:04 | Ophthalmologist Pre-Op Note ---
Pre-Operative Progress Note H&P Reviewed The H&P was reviewed, patient examined and no changes noted. Date H&P Reviewed: Nov 25, 2018 Time H&P Reviewed: 09:04 Pre-Op Dx Cataract, Left Eye MICHELINE MARINELLI MD Nov 25, 2018 09:04
--- NOTE | 2018-11-25 09:31 | Ophthalmology Operative Report ---
Cataract, Miotic Pupil PREOPERATIVE DIAGNOSIS: 1. Cataract Left Eye 2. Miotic Pupil/IFIS POSTOPERATIVE DIAGNOSIS: 1. Cataract Left Eye 2. Miotic Pupil/IFIS PROCEDURE: 1. Cataract removal and placement of posterior chamber implant, left eye 2. Pupillary expansion with malyugin ring SURGEON: Jeff Marinelli ANESTHESIA: Topical with sedation COMPLICATIONS: None ESTIMATED BLOOD LOSS: Minimal DESCRIPTION OF PROCEDURE: After proper informed consent was obtained, the patient, a 72 male, was taken to the Operating Room and the left eye was anesthetized with Tetracaine. The eye was then prepped and draped in the usual manner. A wire lid speculum was placed. A paracentesis was made at the left hand position. Preservative free lidocaine was injected into anterior chamber followed by viscoelastic. A clear corneal incision was made in the temporal position. The malyugin ring was injected into the anterior chamber and the pupil was dilated. A capsulorrhexis was preformed and the central nuclear and cortical material were removed. The posterior capsule was polished and Quincy 18.0 [id number] IOL was placed into the capsular bag. The myalgian ring was removed. The residual viscoelastic was aspirated and the balanced saline solution was injected into the anterior chamber. Moxifloxacin was injected into the anterior chamber. The wound was checked and found to be water tight. The patient tolerated the procedure well without complications. [Limbal Relaxing Incision placed ] [ ]mm at [ ]. JEFF MARINELLI MD Nov 25, 2018 09:31
[2018-11-25 09:39] VITALS: BP 136/84
[2018-11-25] MEDS ORDERED: acetaZOLAMIDE ER 500 MG CAP (DIAMOX SEQUELS) PO ONE (10:00)
--- NOTE | 2018-11-25 12:14 | Anesthesia-General Post-Op ---
MAC Patient Condition Mental Status/LOC: Same as Preop Cardiovascular: Satisfactory Nausea/Vomiting: Absent Respiratory: Satisfactory Pain: Controlled Complications: Absent Post Op Complications Complications None Follow Up Care/Instructions Patient Instructions None needed. Anesthesiology Discharge Order Discharge Order Patient is doing well, no complaints, stable vital signs, no apparent adverse anesthesia problems. No complications reported per nursing. TAMMY SALAZAR CRNA Nov 25, 2018 12:14
== END 2018-11-25 09:39 | disposition home or self-care (01) ==
LOC: SDC 08:19
PROVIDERS: ATTEND Specialist
DX: H25.12 Age-related nuclear cataract, left eye (principal); H57.03 Miosis; H21.81 Floppy iris syndrome; I10 Essential (primary) hypertension; D68.2 Hereditary deficiency of other clotting factors; Z79.01 Long term (current) use of anticoagulants; Z79.899 Other long term (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

== ENCOUNTER 2019-02-13 06:48 | Inpatient (IN) | payer MEDICARE ==
[2019-02-13] VITALS (9 sets, daily range): BP systolic 91–201; BP diastolic 66–118
[~2019-02-13] VITALS: Ht 172.7 cm; Wt 93.1 kg
[2019-02-13 07:15] LABS: BASOPHILS # (AUTO) 0.2 10^3/uL (0.0-0.1); BASOPHILS % (AUTO) 2 % (0-10); EOSINOPHILS # (AUTO) 0.1 10^3/uL (0.0-0.3); EOSINOPHILS % (AUTO) 1 % (0-10); HEMATOCRIT 47 % (40-54); HEMOGLOBIN 16.4 G/DL (13.3-17.7); LYMPHOCYTES # (AUTO) 2.7 X 10^3 (1.0-4.0); LYMPHOCYTES % (AUTO) 30 % (12-44); MEAN CORPUSCULAR HEMOGLOBIN 30 PG (25-34); MEAN CORPUSCULAR HGB CONC 35 G/DL (32-36); MEAN CORPUSCULAR VOLUME 85 FL (80-99); MEAN PLATELET VOLUME 11.4 FL (7.4-10.4); MONOCYTES # (AUTO) 0.9 X 10^3 (0.0-1.0); MONOCYTES % (AUTO) 10 % (0-12); NEUTROPHILS # (AUTO) 5.2 X 10^3 (1.8-7.8); NEUTROPHILS % (AUTO) 58 % (42-75); PLATELET COUNT 234 10^3/uL (130-400); RED CELL DISTRIBUTION WIDTH 13.9 % (10.0-14.5); WHITE BLOOD COUNT 8.9 10^3/uL (4.3-11.0)
[2019-02-13] MEDS ORDERED: NITROGLYCERIN 0.4 MG SL TABS BTL 25'S SL PRN (07:15)
--- NOTE | 2019-02-13 07:15 | ED Chest Pain ---
General Stated Complaint: CHEST PAIN, SOB, HGH BLOOD PRESSURE Source: patient Exam Limitations: no limitations History of Present Illness Date Seen by Provider: February 13, 2019 Time Seen by Provider: 06:55 Initial Comments Patient presents to ER by private conveyance with chief complaint that yesterday he was having some right shoulder pain. He had been working on a push product planner with a neighbor and thought maybe this was a musculoskeletal thing because his uncomfortable to lay on it or move his right arm. However this morning he decided to come in because his blood pressure was high when he checked it and h is pain was not any better this morning. As he was coming to the ER he started feeling some pain in his right chest anteriorly and numbness in his left face starting about 15 minutes prior to arrival. He does not have a history of coronary artery disease but is known to Dr. Reddy. He does have high blood pressure, hypercholesterolemia, borderline diabetes but does not smoke cigare ttes. No known history of thoracic aneurysm. No lung disease, COPD or asthma. No significant acid reflux or anxiety. Allergies and Home Medications Allergies Coded Allergies: aspirin (Unverified Allergy, Mild, HIVES, 12/23/09) Home Medications Acetaminophen 650 Mg Tablet.er, 1,300 MG PO BID PRN for PAIN-MILD, (Reported) Carvedilol 12.5 Mg Tablet, 12.5 MG PO BID, (Reported) Cholecalciferol (Vitamin D3) 5,000 Unit Capsule, 5,000 UNIT PO DAILY, (Reported) Lisinopril 40 Mg Tablet, 20 MG PO BID, (Reported) TAKES 1/2 (40MG) TABLET Magnesium Oxide 250 Mg Tablet, 250 MG PO BID, (Reported) Tamsulosin HCl 0.4 Mg Cap, 0.4 MG PO BID, (Reported) Ubidecarenone/Vit E Acetate 1 Each Capsule, 1 CAP PO DAILY, (Reported) Warfarin Sodium 3 Mg Tablet, PO UD, (Reported) TAKES 3MG FOR 2 DAYS THEN TAKE 1.5MG FOR ONE DAY THEN REPEAT. Patient Home Medication List Home Medication List Reviewed: Yes Review of Systems Review of Systems Constitutional: No chills, No diaphoresis EENTM: No Blurred Vision, No Double Vision Respiratory: Denies Cough, Denies Shortness of Air Cardiovascular: See HPI, Chest Pain; Denies Edema Gastrointestinal: Denies Abdomen Distended, Denies Abdominal Pain Genitourinary: Denies Burning, Denies Discharge Musculoskeletal: No back pain, No joint pain Past [id number]-[id number] Hx Patient Social History Alcohol Use: Denies Use Recreational Drug Use: No Smoking Status: Never a Smoker 2nd Hand Smoke Exposure: No Recent Foreign Travel: No Contact w/Someone Who Travel: No Recent Hopitalizations: No Seasonal Allergies Seasonal Allergies: No Past Medical History Surgeries: Yes (RENAL STENTS) Abdominal, Orthopedic, Renal, Vascular Surgery Respiratory: No Cardiac: Yes (renal artery stenosis status post stenting) Deep Vein Thrombosis, Hypertension, Peripheral Vascular Neurological: No Reproductive Disorders: No Sexually Transmitted Disease: No Genitourinary: Yes Benign Prostatic Hyperpl Gastrointestinal: No Musculoskeletal: Yes (Disc bulging at C5-C6) Arthritis Endocrine: No HEENT: No Loss of Vision: Denies Hearing Impairment: Denies Cancer: No Psychosocial: No Integumentary: No Blood Disorders: Yes (Factor V Leiden) Family Medical History Family history: Hypertension 03 FATHER 03 MOTHER 09 SISTER History of - disorder 03 FATHER (PASSED FROM ALS LIKE SYMPTOMS, BLOOD CLOTTING DISORDER ) 03 MOTHER Hypercholesterolemia 09 SISTER Stroke 03 MOTHER, Onset:60 years & older Hypertension, Stroke Physical Exam Vital Signs Vital Signs - First Documented 02/13/19 07:13 Temp 97.5 Pulse 53 Resp 20 B/P (MAP) 226/114 (151) Pulse Ox 96 O2 Delivery Room Air Capillary Refill : Height, Weight, BMI Height: 5'8.00" Weight: 200lbs. 0.0oz. 90.921782ds; 29.7 BMI Method:Stated General Appearance: Anxious, Mild Distress HEENT: PERRL/EOMI, Pharynx Normal, Moist Mucous Membranes Neck: Full Range of Motion, Normal Inspection, Non Tender, Supple Respiratory: Chest Non Tender, Lungs Clear, Normal Breath Sounds, No Accessory Muscle Use, No Respiratory Distress Cardiovascular: Regular Rate, Rhythm, Normal Peripheral Pulses Gastrointestinal: Normal Bowel Sounds, Non Tender, Soft Neurologic/Psychiatric: Alert, Oriented x3 Skin: Normal Color, Warm/Dry Progress/Results/Core Measures Results/Orders Lab Results Laboratory Tests Test 02/13/19 07:03 Range/Units White Blood Count 8.9 4.3-11.0 10^3/uL Red Blood Count 5.55 4.35-5.85 10^6/uL Hemoglobin 16.4 13.3-17.7 G/DL Hematocrit 47 40-54 % Mean Corpuscular Volume 85 80-99 FL Mean Corpuscular Hemoglobin 30 25-34 PG Mean Corpuscular Hemoglobin Concent 35 32-36 G/DL Red Cell Distribution Width 13.9 10.0-14.5 % Platelet Count 234 130-400 10^3/uL Mean Platelet Volume 11.4 H 7.4-10.4 FL Neutrophils (%) (Auto) 58 42-75 % Lymphocytes (%) (Auto) 30 12-44 % Monocytes (%) (Auto) 10 0-12 % Eosinophils (%) (Auto) 1 0-10 % Basophils (%) (Auto) 2 0-10 % Neutrophils # (Auto) 5.2 1.8-7.8 X 10^3 Lymphocytes # (Auto) 2.7 1.0-4.0 X 10^3 Monocytes # (Auto) 0.9 0.0-1.0 X 10^3 Eosinophils # (Auto) 0.1 0.0-0.3 10^3/uL Basophils # (Auto) 0.2 H 0.0-0.1 10^3/uL Prothrombin Time 24.5 H 12.2-14.7 SEC INR Comment 2.1 H 0.8-1.4 Activated Partial Thromboplast Time 39 H 24-35 SEC D-Dimer 0.35 0.00-0.49 UG/ML Sodium Level 138 135-145 MMOL/L Potassium Level 4.8 3.6-5.0 MMOL/L Chloride Level 109 H 98-107 MMOL/L Carbon Dioxide Level 14 L 21-32 MMOL/L Anion Gap 15 H 5-14 MMOL/L Blood Urea Nitrogen 12 7-18 MG/DL Creatinine 1.30 0.60-1.30 MG/DL Estimat Glomerular Filtration Rate 54 BUN/Creatinine Ratio 9 Glucose Level 130 H 70-105 MG/DL Calcium Level 9.2 8.5-10.1 MG/DL Corrected Calcium 9.3 8.5-10.1 MG/DL Magnesium Level 2.8 H 1.8-2.4 MG/DL Total Bilirubin 0.4 0.1-1.0 MG/DL Aspartate Amino Transf (AST/SGOT) 30 5-34 U/L Alanine Aminotransferase (ALT/SGPT) 24 0-55 U/L Alkaline Phosphatase 122 40-136 U/L Myoglobin 59.5 10.0-92.0 NG/ML Troponin I < 0.028 <0.028 NG/ML B-Type Natriuretic Peptide 69.9 <100.0 PG/ML Total Protein 7.8 6.4-8.2 GM/DL Albumin 3.9 3.2-4.5 GM/DL My Orders Orders - NEMO,RAHEEL J Continuous Ekg Monitoring (02/13/19 06:57) Ekg Tracing (02/13/19 06:57) Cbc With Automated Diff (02/13/19 07:08) Magnesium (02/13/19 07:08) Chest 1 View, Ap/Pa Only (02/13/19 07:08) Cardiac Profile 1 (02/13/19 07:08) Comprehensive Metabolic Panel (02/13/19 07:08) Myoglobin Serum (02/13/19 07:08) Protime With Inr (02/13/19 07:08) Partial Thromboplastin Time (02/13/19 07:08) O2 (02/13/19 07:08) Ed Iv/Invasive Line Start (02/13/19 07:08) BNP (02/13/19 07:08) Fibrin Degradation Products (02/13/19 07:08) Nitroglycerin 0.4 Mg Btl 25's (Nitrostat (02/13/19 07:15) Morphine Injection (Morphine Injection (02/13/19 07:19) Morphine Injection (Morphine Injection (02/13/19 07:17) Ed Iv/Invasive Line Start (02/13/19 08:40) Ns Iv 1000 Ml (Sodium Chloride 0.9%) (02/13/19 08:40) Ct Angio Chest W (02/13/19 08:40) Ns Iv 1000 Ml (Sodium Chloride 0.9%) (02/13/19 08:38) Iohexol Injection (Omnipaque 350 Mg/Ml 1 (02/13/19 09:00) Received Contrast (Hold Metformin- Contr (02/13/19 09:00) Ns (Ivpb) (Sodium Chloride 0.9%) (02/13/19 09:00) Medications Given in ED Vital Signs/I&O 02/13/19 02/13/19 02/13/19 02/13/19 07:13 07:22 07:22 07:27 Temp 97.5 97.5 97.5 Pulse 53 Resp 20 B/P (MAP) 226/114 (151) Pulse Ox 96 O2 Delivery Room Air Room Air Progress Progress Note #1: Time: 07:17 Progress Note The patient says the right chest pain has spontaneously improved so we'll going give him nitroglycerin. He has a stated allergy to aspirin. Echocardiogram Dr. Reddy March 2018: EF 60-65% with grade 1 diastolic dysfunction. Mild mitral valve regurgitation. Negative stress test 2017. Present with similar symptoms of nonexertional chest pressure left face and arm numbness 2012. On warfarin for factor V Leiden thrombophilia. Status post inferior vena cava filter and followed by Dr. Qureshi. ED ACS 25 points. Not low risk. This patient is not a candidate for early discharge and should receive a standard chest pain evaluation with delayed troponin testing. Progress Note #2: Time: 10:12 Progress Note Nitroglycerin significantly reduce his blood pressure from 240 down to 150 systolic. It also reduced his pain and half. A dose of morphine took his pain away and anterior chest but he still having the same right shoulder pain since yesterday. Initial ECG Impression Date: February 13, 2019 Initial ECG Impression Time: 07:01 Initial ECG Rate: 57 Initial ECG Rhythm: Normal Sinus Initial ECG Intervals: Normal Initial ECG Impression: Normal Initial ECG Comparisson: Unchanged Comment Normal sinus rhythm without ST elevation or depression. Diagnostic Imaging Diagonstic Imaging: Xray Plain Films/CT/US/NM/MRI: chest (1v) Comments NAME: AMBER MONTEIRO MED REC#: [id number] PHYSICIAN: RAHEEL CHESTER MD CC: ELIJAH MIRANDA; RAHEEL CHESTER Page 1 of 1 RADIOLOGY REPORT [facility] [place] CC: ELIJAH MIRANDA; RAHEEL CHESTER Page 1 of 1 RADIOLOGY REPORT NAME: AMBER MONTEIRO [facility] REC#: [id number] PT STATUS: REG ER : 1945 PHYSICIAN: RAHEEL CHESTER MD ADMIT DATE: 02/13/19/ER Signed Date of Exam: 02/13/19 CHEST 1 VIEW, AP/PA ONLY Indication: Chest pain. Comparison: 08/16/2013 Findings: Single view of the chest demonstrates clear lungs bilaterally. The heart is normal. There is no pneumothorax. The osseous structures are normal. Impression: Negative chest. Dictated by: Dictated on workstation # [id number] Dict: 02/13/19 0728 Trans: 02/13/19810 Interpreted by: ELIJAH MIRANDA Electronically signed by: ELIJAH MIRANDA 02/13/19810 Reviewed: Reviewed by Fl Diagonstic Imaging: CT (angiogram) Plain Films/CT/US/NM/MRI: chest Comments [facility] [place] NAME: AMBER MONTEIRO [facility] REC#: [id number] PT STATUS: REG ER : 1945 PHYSICIAN: RAHEEL CHESTER MD ADMIT DATE: 02/13/19/ER Draft Date of Exam:02/13/19 CT ANGIO CHEST W PROCEDURE: CT angiography of the chest with contrast. TECHNIQUE: Multiple contiguous axial images were obtained through the chest after uneventful bolus administration of intravenous contrast. 2D reconstructed CTA MIP acquisitions were also performed. Auto Exposure Controls were utilized during the CT exam to meet ALARA standards for radiation dose reduction. DATE: February 13, 2019. COMPARISON: Chest radiograph of February 13, 2019. INDICATION: 73-year-old male, right shoulder pain and chest pain. FINDINGS: There is a 4 mm right upper lobe pulmonary nodule on axial image 18. There is a 4 mm right middle lobe pulmonary nodule on axial image 72. There is a calcified 4 mm left lower lobe granuloma on axial image 106. There is a nodule in the lingula measuring 7 mm in size on axial image 87. There are mild peripheral linear opacities in the right and left lower lobes which may relate to mild atelectasis and/or scarring. There is no additional focal airspace consolidation. There is no pneumothorax. There is no pleural effusion. The central airways are patent. There is no identified pulmonary embolus. The main pulmonary artery is normal in caliber. The heart is not enlarged. There is no pericardial effusion. There are atherosclerotic calcifications. There is no identified abnormally enlarged mediastinal, hilar, or axillary lymph node which meets CT size criteria for adenopathy. There is a low-attenuation lesion in the left lobe of the liver on axial image 97 measuring up to 3.8 cm in size with internal attenuation of 20 Hounsfield units. This does not meet strict diagnostic criteria for a definite diagnosis of hepatic cyst. There is an additional low-attenuation 8 mm lesion in the liver on axial image 95 which is consistent with a benign hepatic cyst. There is cholelithiasis without findings to suggest acute cholecystitis. There are degenerative changes of the spine. There is no identified acute bony abnormality. IMPRESSION: 1. No identified pulmonary embolus or other acute cardiopulmonary abnormality. 2. Subcentimeter pulmonary nodules measuring up to maximally 7 mm in size in the lingula. Recommend followup CT chest in 6 months to evaluate for stability if comparison imaging is not available to evaluate for possible stability. 3. Technically indeterminate 3.8 cm lesion in the left lobe of the liver. Recommend comparison with prior cross-sectional imaging, if available. Dictated on workstation # [id number] Dict: 02/13/19 0941 Trans: 02/13/19 0954 [id number] Interpreted by: MARGARITA SOUZA MD Electronically signed by: Reviewed: Reviewed by Me Departure Communication (Admissions) Time/Spoke to Admitting Phy: 10:16 Discussed case lab imaging EKG with Dr. Fajardo and she agrees to admit the patient. Time/Spoke to Consulting Phy: 10:15 Discussed case lab EKG, imaging and findings with Dr. Forrester and he agrees to consult on the patient on the cardiac stepdown and give 150 mg Plavix 1. Impression Primary Impression: Chest pain Qualified Codes: R07.9 - Chest pain, unspecified Disposition: 09 ADMITTED INPATIENT Condition: Stable Admissions Decision to Admit Reason: Admit from ER (General) Decision to Admit/Date: February 13, 2019 Time/Decision to Admit Time: 08:18 Departure-Patient Inst. Referrals: ALYCE FAJARDO MD (PCP/Family) Primary Care Physician RAHEEL CHESTER February 13, 2019 07:15
[2019-02-13] MEDS ORDERED: morphine INJ 10 MG/ML 1ML (SYR OR VIAL) ONE (07:17)
[2019-02-13] MEDS ORDERED: morphine INJ 10 MG/ML 1ML (SYR OR VIAL) IVP STA (07:19)
[2019-02-13 07:26] LABS: INR 2.1 (0.8-1.4); PROTHROMBIN TIME PATIENT 24.5 SEC (12.2-14.7)
[2019-02-13 07:32] LABS: ALANINE AMINOTRANSFERASE 24 U/L (0-55); ALBUMIN 3.9 GM/DL (3.2-4.5); ALKALINE PHOSPHATASE 122 U/L (40-136); BILIRUBIN,TOTAL 0.4 MG/DL (0.1-1.0); BUN/CREATININE RATIO 9; CALCIUM 9.2 MG/DL (8.5-10.1); CARBON DIOXIDE 14 MMOL/L (21-32); CHLORIDE 109 MMOL/L (98-107); GFR ESTIMATED 54; GLUCOSE 130 MG/DL (70-105); MAGNESIUM 2.8 MG/DL (1.8-2.4); POTASSIUM 4.8 MMOL/L (3.6-5.0); SODIUM 138 MMOL/L (135-145); TOTAL PROTEIN 7.8 GM/DL (6.4-8.2)
--- NOTE | 2019-02-13 07:32 | Diagnostic Imaging Report ---
Indication: Chest pain. Comparison: 08/16/2013 Findings: Single view of the chest demonstrates clear lungs bilaterally. The heart is normal. There is no pneumothorax. The osseous structures are normal. Impression: Negative chest. Dictated by: Dictated on workstation # [id number]
[2019-02-13] MEDS ORDERED: NS IV 1000 ML 1,000 ML ONE (08:38)
[2019-02-13] MEDS ORDERED: NS IV 1000 ML 1,000 ML IV SCH (08:40)
[2019-02-13] MEDS ORDERED: NS 250 ML (IVPB) BAG IV ONE (09:00)
[2019-02-13] MEDS ORDERED: IOHEXOL 350 MG/ML 100 ML (OMNIPAQUE 350) VIAL IV ONE (09:00)
[2019-02-13] MEDS ORDERED: HOLD METFORMIN - RECEIVED CONTRAST 20 ML VIAL IV SCH (09:00)
--- NOTE | 2019-02-13 09:55 | Diagnostic Imaging Report ---
PROCEDURE: CT angiography of the chest with contrast. TECHNIQUE: Multiple contiguous axial images were obtained through the chest after uneventful bolus administration of intravenous contrast. 2D reconstructed CTA MIP acquisitions were also performed. Auto Exposure Controls were utilized during the CT exam to meet ALARA standards for radiation dose reduction. DATE: February 13, 2019. COMPARISON: Chest radiograph of February 13, 2019. INDICATION: 73-year-old male, right shoulder pain and chest pain. FINDINGS: There is a 4 mm right upper lobe pulmonary nodule on axial image 18. There is a 4 mm right middle lobe pulmonary nodule on axial image 72. There is a calcified 4 mm left lower lobe granuloma on axial image 106. There is a nodule in the lingula measuring 7 mm in size on axial image 87. There are mild peripheral linear opacities in the right and left lower lobes which may relate to mild atelectasis and/or scarring. There is no additional focal airspace consolidation. There is no pneumothorax. There is no pleural effusion. The central airways are patent. There is no identified pulmonary embolus. The main pulmonary artery is normal in caliber. The heart is not enlarged. There is no pericardial effusion. There are atherosclerotic calcifications. There is no identified abnormally enlarged mediastinal, hilar, or axillary lymph node which meets CT size criteria for adenopathy. There is a low-attenuation lesion in the left lobe of the liver on axial image 97 measuring up to 3.8 cm in size with internal attenuation of 20 Hounsfield units. This does not meet strict diagnostic criteria for a definite diagnosis of hepatic cyst. There is an additional low-attenuation 8 mm lesion in the liver on axial image 95 which is consistent with a benign hepatic cyst. There is cholelithiasis without findings to suggest acute cholecystitis. There are degenerative changes of the spine. There is no identified acute bony abnormality. IMPRESSION: 1. No identified pulmonary embolus or other acute cardiopulmonary abnormality. 2. Subcentimeter pulmonary nodules measuring up to maximally 7 mm in size in the lingula. Recommend followup CT chest in 6 months to evaluate for stability if comparison imaging is not available to evaluate for possible stability. 3. Technically indeterminate 3.8 cm lesion in the left lobe of the liver. Recommend comparison with prior cross-sectional imaging, if available. Dictated by: Dictated on workstation # [id number]
--- NOTE | 2019-02-13 11:00 | NUR ---
AMBER MONTEIRO admitted to room CU12-1, with an admitting diagnosis of CP R/O ACS, on 02/13/19 from ER via WC, accompanied by STAFF.AMBER MONTEIRO introduced to surroundings, call light, bed controls, phone, TV, temperature control, lights, meal times, smoking policy, visitor policy, side rail policy, bathrooms and showers. Patient Rights given to patient in the handbook. AMBER MONTEIRO verbalizes understanding that [facility] is not responsible for the loss or damage to any personal effects or valuables that are kept in the patients posession during their hospitalization. The following Patient Care Plans were discussed with the PT: Discharge Planning, PAIN,ACTIVITY INTOLERANCE, and ANXIETY. AMBER MONTEIRO verbalizes understanding of Interdisciplinary Patient Education. Patient and family were informed about the Rapid Response Team and its purpose.
--- NOTE | 2019-02-13 11:10 | NUR ---
MELCHOR VÁZQUEZ HERE TO SEE PT, AWARE OF PT' S ELEVATED BP.
[2019-02-13] MEDS ORDERED: ONDANSETRON 4 MG/2 ML (SDV) Z0FRAN IV PRN (11:15)
[2019-02-13] MEDS ORDERED: ANTACID SUSP 30 ML UDC (MYLANTA) PO PRN (11:30)
[2019-02-13] MEDS ORDERED: ACETAMINOPHEN 500 MG TAB (TYLENOL) PO PRN (11:30)
[2019-02-13] MEDS ORDERED: morphine INJ 4 MG/ML 1 ML (VIAL/SYRINGE) IV PRN (11:30)
--- NOTE | 2019-02-13 11:33 | Consultation-Cardiology ---
HPI-Cardiology Cardiology Consultation: Date of Consultation 02/13/19 Time Seen by a Provider: 11:25 Date of Admission 02-13-19 Attending Physician Mahnaz Fajardo MD Admitting Physician Mahnaz Fajardo MD Consulting Physician Patel Reddy MD HPI: Chief Complaint: Chest pain Mr. Gupta is a 73 year old male admitted to ICU 12 from the ED. He reports yesterday evening around 7 p.m. he began to have pain in his right shoulder blade which he describes as a ache. He reports it would improve if he would lie on his right side and get worse if he laid on his left side. He reports the discomfort was still present this morning when he woke up. He reports he checked his BP and noted it to be high which prompted him to come to the ED. The right shoulder discomfort had been present, steady for several hours at this point. He states when he got to the ED window to check in the shoulder blade pain radiated to his right ACW which he describes as an ache. He reports feeling some nausea at that time. He states he received nitro sublingual in the ED which did result in some relief and improvement in his BP. He was still having the right shoulder blade pain. He states he received morphine in the ED which resulted in complete resolution of ACW pain and improvement in the shoulder blade pain. He states he continues to have a dull ache in his shoulder blade. No c/o palpitations, syncope or near syncope. No c/o LE swelling. He reports he was taking Norvasc at home, but stopped it a few weeks ago d/t LE swelling. He reports intolerance to Doxazosin d/t dizziness and fatigue. He denies any n/v/d. No c/o fever or chills. Review of Systems-Cardiology Review of Systems Constitutional: No chills, No fever Eyes: No vision change Ears/Nose/Throat: No epistaxis, No recent hearing loss Respiratory: As described under HPI Cardiovascular: As described under HPI Gastrointestinal: No constipation, No diarrhea, No nausea, No vomiting Genitourinary: No dysuria, No hematuria Musculoskeletal: As describe under HPI Skin: No dryness, No rash, No ulcerations Psychiatric/Neurological: No seizure, No focal weakness, No syncope Hematologic: No bleeding abnormalities [id number] Hx Patient Social History Alcohol Use: Denies Use Recreational Drug Use: No Smoking Status: Former Smoker 2nd Hand Smoke Exposure: No Recent Foreign Travel: No Recent Infectious Disease Expo: No Past Medical History PMH As described under Assessment. Family Medical History Family Medical History: Reports family h/o father having HTN. Mother having HTN and CVA. Sister having HTN. Family History: Family history: Hypertension 03 FATHER 03 MOTHER 09 SISTER History of - disorder 03 FATHER (PASSED FROM ALS LIKE SYMPTOMS, BLOOD CLOTTING DISORDER ) 03 MOTHER Hypercholesterolemia 09 SISTER Stroke 03 MOTHER, Onset:60 years & older Allergies and Home Medications Allergies Coded Allergies: aspirin (Unverified Allergy, Mild, HIVES, 12/23/09) Home Medications Acetaminophen 650 Mg Tablet.er, 1,300 MG PO BID PRN for PAIN-MILD, (Reported) Carvedilol 12.5 Mg Tablet, 12.5 MG PO BID, (Reported) Cholecalciferol (Vitamin D3) 5,000 Unit Capsule, 5,000 UNIT PO DAILY, (Reported) Lisinopril 40 Mg Tablet, 20 MG PO BID, (Reported) TAKES 1/2 (40MG) TABLET Magnesium Oxide 250 Mg Tablet, 250 MG PO BID, (Reported) Tamsulosin HCl 0.4 Mg Cap, 0.4 MG PO BID, (Reported) Ubidecarenone/Vit E Acetate 1 Each Capsule, 1 CAP PO DAILY, (Reported) Warfarin Sodium 3 Mg Tablet, PO UD, (Reported) TAKES 3MG FOR 2 DAYS THEN TAKE 1.5MG FOR ONE DAY THEN REPEAT. Physical Exam-Cardiology Physical Exam Vital Signs/I&O 02/14/19 02/14/19 02/14/19 02/14/19 00:00 00:00 01:00 04:00 Pulse 58 69 64 Resp 14 19 B/P (MAP) 211/95 (133) 181/89 (119) Pulse Ox 94 96 O2 Delivery Room Air Room Air Room Air 02/14/19 02/14/19 02/14/19 02/14/19 04:00 07:00 07:00 07:55 Temp 97.6 Pulse 59 59 Resp 16 B/P (MAP) 185/79 (114) Pulse Ox 98 O2 Delivery Room Air Room Air 02/14/19 02/14/19 02/14/19 02/14/19 07:58 08:00 08:29 09:00 Pulse 70 68 Resp 16 9 B/P (MAP) 166/83 (110) 141/72 (95) Pulse Ox 96 96 O2 Delivery Room Air Room Air Room Air Room Air 02/14/19 00:00 Intake Total 840 ml Balance 840 ml Capillary Refill : Less Than 3 Seconds Constitutional: AAO x 3, well-developed, well-nourished HEENT: hearing is well preserved, oral hygience is good Neck: No carotid bruit; carotid pulses are 2 + bilaterally Respiratory: No accessory muscle use, No respiratory distress; chest expansion is symmetric, chest is bilaterally symmetric, lungs clear to auscultation Cardiovascular: regular rate-rhythm; No JVD; S1 and S2 Gastrointestinal: No tender; soft, round, audible bowel sounds Extremities: no lower extremity edema bilateral Neurologic/Psychiatric: grossly intact, power is 5/5 both on sides Skin: No rash, No ulcerations Data Review Labs Laboratory Tests 02/13/19 13:06: Troponin I < 0.028 02/13/19 19:00: Troponin I < 0.028 02/14/19 03:20: White Blood Count 10.8, Red Blood Count 5.13, Hemoglobin 14.7, Hematocrit 42, Mean Corpuscular Volume 83, Mean Corpuscular Hemoglobin 29, Mean Corpuscular Hemoglobin Concent 35, Red Cell Distribution Width 14.0, Platelet Count 214, Mean Platelet Volume 10.7H, Neutrophils (%) (Auto) 74, Lymphocytes (%) (Auto) 17, Monocytes (%) (Auto) 8, Eosinophils (%) (Auto) 1, Basophils (%) (Auto) 1, Neutrophils # (Auto) 8.0H, Lymphocytes # (Auto) 1.8, Monocytes # (Auto) 0.9, Eosinophils # (Auto) 0.1, Basophils # (Auto) 0.1, Prothrombin Time 24.6H, INR Comment 2.1H, Sodium Level 141, Potassium Level 3.9, Chloride Level 109H, Carbon Dioxide Level 20L, Anion Gap 12, Blood Urea Nitrogen 12, Creatinine 1.10, Estimat Glomerular Filtration Rate > 60, BUN/Creatinine Ratio 11, Glucose Level 134H, Calcium Level 9.1, Triglycerides Level 427H, Cholesterol Level 207H, LDL Cholesterol Direct 95, VLDL Cholesterol , HDL Cholesterol 26L Radiology NAME: AMBER GUPTA Sugar [facility] REC#: [id number] PT STATUS: REG ER : 1945 PHYSICIAN: RAHEEL CHESTER MD ADMIT DATE: 02/13/19/ER Signed Date of Exam: 02/13/19 CT ANGIO CHEST W PROCEDURE: CT angiography of the chest with contrast. TECHNIQUE: Multiple contiguous axial images were obtained through the chest after uneventful bolus administration of intravenous contrast. 2D reconstructed CTA MIP acquisitions were also performed. Auto Exposure Controls were utilized during the CT exam to meet ALARA standards for radiation dose reduction. DATE: February 13, 2019. COMPARISON: Chest radiograph of February 13, 2019. INDICATION: 73-year-old male, right shoulder pain and chest pain. FINDINGS: There is a 4 mm right upper lobe pulmonary nodule on axial image 18. There is a 4 mm right middle lobe pulmonary nodule on axial image 72. There is a calcified 4 mm left lower lobe granuloma on axial image 106. There is a nodule in the lingula measuring 7 mm in size on axial image 87. There are mild peripheral linear opacities in the right and left lower lobes which may relate to mild atelectasis and/or scarring. There is no additional focal airspace consolidation. There is no pneumothorax. There is no pleural effusion. The central airways are patent. There is no identified pulmonary embolus. The main pulmonary artery is normal in caliber. The heart is not enlarged. There is no pericardial effusion. There are atherosclerotic calcifications. There is no identified abnormally enlarged mediastinal, hilar, or axillary lymph node which meets CT size criteria for adenopathy. There is a low-attenuation lesion in the left lobe of the liver on axial image 97 measuring up to 3.8 cm in size with internal attenuation of 20 Hounsfield units. This does not meet strict diagnostic criteria for a definite diagnosis of hepatic cyst. There is an additional low-attenuation 8 mm lesion in the liver on axial image 95 which is consistent with a benign hepatic cyst. There is cholelithiasis without findings to suggest acute cholecystitis. There are degenerative changes of the spine. There is no identified acute bony abnormality. IMPRESSION: 1. No identified pulmonary embolus or other acute cardiopulmonary abnormality. 2. Subcentimeter pulmonary nodules measuring up to maximally 7 mm in size in the lingula. Recommend followup CT chest in 6 months to evaluate for stability if comparison imaging is not available to evaluate for possible stability. 3. Technically indeterminate 3.8 cm lesion in the left lobe of the liver. Recommend comparison with prior cross-sectional imaging, if available. Dictated by: Dictated on workstation # [id number] Dict: 02/13/19 0941 Trans: 02/13/19 1010 Interpreted by: MARGARITA SOUZA MD Electronically signed by: MARGARITA SOUZA MD 02/13/19 1010 ECG Impression ECG Initial ECG Rhythm: Normal Sinus A/P-Cardiology Assessment/Admission Diagnosis Chest pain of undetermined etiology Uncontrolled hypertension Reported intolerance to Doxazosin secondary to fatigue and dizziness. Reported intolerance to Norvasc d/t LE swelling. H/o L renal artery stenosis treated with stenting of L main and L accessory renal arteries in 2001 at [facility] in , patent and with only mild stenosis on CT angio of abdomen on 11/23/12. No KASSANDRA on renal u/s of 05/20/18 (renal cysts were found for which f/u is advised with pcp) Factor V Leiden mutation, treated with chronic warfarin therapy that is managed by Dr Fajardo S/p Fabius filter in [address] Benjamin at [place], [place] Echo of March 2018 showed LVEF 60-65%. Grade 1 diastolic dysfunction. PASP 25- 30mmHg. Mild TR and MR. H/o R carotid artery stenosis (mod on u/s of and mild on CTA of 08/17/13) MPI of March 2018 showed no evidence of significant ischemia or infarction. LVEF 67% Minimal carotid plaque without evidence of hemodynamic significance in March 2018 Discussion and Recomendations Chest discomfort of undetermined etiology with no evidence of ACS thus far Discussed further coronary evaluation with cardiac cath. He would like to consider and will decide. Uncontrolled hypertension with reported intolerance to Norvasc and Cardura for reasons noted above Asymptomatic bradycardia precludes us from increasing his BB dose Not suitable candidate for clonidine either d/t risk of worsening bradycardia Will add Hydralazine for BP control Monitor lab closely Further recs will be based on his hospital course We would like to thank medical services for this consult Clinical Quality Measures AMI/AHF: ASA po Prior to arrival: MELCHOR Galindo February 13, 2019 11:32
--- OUTSIDE RECORDS SUMMARY | 2019-02-13 11:56 | XMS REPORT | Clinical Summary ---
Author Author [facility] Organization [facility] Address Unknown Phone Unavailable Care Team Providers Care Aircraft Mechanic Structures Name Role Phone PCP Unavailable Allergies Not [...]
--- OUTSIDE RECORDS SUMMARY | 2019-02-13 11:56 | XMS REPORT | Clinical Summary ---
Author Author [facility] Organization [facility] Address Unknown Phone Unavailable Care Team Providers Care Calender Roll Operator Name Role Phone PCP Unavailable Source Comments Some departments are not documenting in the electronic medical record. If you d o not see the information that you expected, contact Release of Information in [facility] [employer] Information Management department at [phone] for further assistan ce in locating additional records.[facility] Allergies Comments Active Allergy Reactions Severity Noted [...] (1 of 2 - PCV13) INFLUENZA VACCINE 06/27/2019 Results Not on filefrom Last 3 Months
--- OUTSIDE RECORDS SUMMARY | 2019-02-13 11:58 | XMS REPORT | CCD ---
Author Author [facility] Organization [facility] Address [address] [place] [address] Phone Care Team Providers Care Hourly Sign Language Interpreter Name Role Phone PP Unavailable CCM Unavailable Summary Purpose Interface Exchange Insurance Providers Payer name Policy type / Coverage type Covered libertarian ID Effective Begin Date Effective End Date [employer] Medicare Part B [id number] 2016 Unknown Family history Mother Diagnosis Age At Onset Stroke Unknown Father Diagnosis Age At Onset Hypertension Unknown Sister Diagnosis Age At Onset Hypertension Unknown Social History Social History Element Codes Description Effective Dates Marital status Unknown 11/09/[address]: 0763576 Former smoker quit 1988 11/09/2012 Allergies, Adverse Reactions, Alerts Substance Reaction Codes Entered Date Inactivated Date Status ASPIRIN (TARTRAZINE ONLY) hives, Unknown 11/09/2012 No Inactive Date Active Past Medical History Illness Codes Condition Status Onset Date Resolved Date Essential (primary) hypertension ICD-9: 401.1 ICD-10: I10 Active 01/03/2019 Unknown Other fpc (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 ICD-9: V58.69 ICD-10: Z79.899 Active 03/01/2016 Unknown Cervicalgia ICD-9: 723.1 ICD-10: M54.2 Active 04/15/2018 Unknown Essential (primary) hypertension ICD-9: 401.9 ICD-10: I10 Active 05/06/2016 Unknown Paresthesia of skin ICD- 9: 782.0 ICD-10: R20.2 Active 04/15/2018 Unknown Benign prostatic hyperplasia with lower urinary tract symptoms ICD-9: 600.91 ICD-10: N40.1 Active 12/01/2017 Unknown Encounter for general adult medical examination with abnormal findings ICD-9: V70.0 ICD-10: Z00.01 Active 12/01/2017 Unknown Other acute sinusitis ICD- 9: 461.8 ICD-10: J01.80 Active 10/06/2017 Unknown Other allergic rhinitis ICD-9: 477.8 ICD-10: J30.89 Active 10/06/2017 Unknown Gastro-esophageal reflux disease without esophagitis ICD-9: 530.81 ICD-10: K21.9 Active 06/23/2017 Unknown Pain in right elbow ICD- 9: 719.42 ICD-10: M25.521 Active 02/24/2017 Unknown Other conditions associated with Lyme disease ICD-9: 088.81 ICD-10: A69.29 Active 04/14/2017 Unknown Other dorsalgia ICD-9: 723.1 ICD-10: M54.89 Active 04/14/2017 Unknown Other fatigue ICD-9: 780.79 ICD-10: R53.83 Active 02/24/2017 Unknown Pain in joints of left hand ICD-9: 719.44 ICD-10: M25.542 Active 02/24/2017 Unknown Pain in joints of right hand ICD-9: 719.44 ICD-10: M25.541 Active 02/24/2017 Unknown Pain in left elbow ICD- 9: 719.42 ICD-10: M25.522 Active 02/24/2017 Unknown Impaired fasting glucose ICD-9: 790.21 ICD-10: R73.01 Active 03/01/2016 Unknown Acute recurrent maxillary sinusitis ICD-9: 461.0 ICD-10: J01.01 Active 10/30/2015 Unknown Mixed hyperlipidemia ICD- 9: 272.4 ICD-10: E78.2 Active 10/30/2015 Unknown CELLULITIS ICD-9: 682.9 Active 01/25/2014 Unknown Acute maxillary sinusitis ICD-9: 461.0 Active 11/29/2013 Unknown Cough ICD-9: 786.2 Active 11/29/2013 Unknown Encounter for long-term (current) use of other high-risk medications ICD-9: V58.69 Active 11/10/2013 Unknown Allergic rhinitis ICD-9: 477.9 Active 02/23/2013 Unknown Esophageal reflux ICD-9: 530.81 Active 02/23/2013 Unknown Sore throat ICD-9: 462 Active 02/23/2013 Unknown Hyperlipidemia Unknown Active 11/30/2012 Unknown HYPERLIPIDEMIA ICD-9: 272.4 Active 11/30/2012 Unknown 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 Active 11/30/2012 Unknown Hypertension Unknown Active 11/09/2012 Unknown ESSENTIAL HYPERTENSION ICD-9: 401.9 Active 11/09/2012 Unknown Hip pain ICD-9: 719.45 Active 11/09/2012 Unknown Renal artery stenosis ICD- 9: 440.1 Active 11/09/2012 Unknown Problems Condition Codes Effective Dates Condition Status Essential (primary) hypertension ICD-9: 401.1 ICD-10: I10 01/03/2019 Active Other fpc (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 ICD-9: V58.69 ICD-10: Z79.899 03/01/2016 Active Cervicalgia ICD-9: 723.1 ICD-10: M54.2 04/15/2018 Active Essential (primary) hypertension ICD-9: 401.9 ICD-10: I10 05/06/2016 Active Paresthesia of skin ICD- 9: 782.0 ICD-10: R20.2 04/15/2018 Active Benign prostatic hyperplasia with lower urinary tract symptoms ICD-9: 600.91 ICD-10: N40.1 12/01/2017 Active Encounter for general adult medical examination with abnormal findings ICD-9: V70.0 ICD-10: Z00.01 12/01/2017 Active Other acute sinusitis ICD- 9: 461.8 ICD-10: J01.80 10/06/2017 Active Other allergic rhinitis ICD-9: 477.8 ICD-10: J30.89 10/06/2017 Active Gastro-esophageal reflux disease without esophagitis ICD-9: 530.81 ICD-10: K21.9 06/23/2017 Active Pain in right elbow ICD- 9: 719.42 ICD-10: M25.521 02/24/2017 Active Other conditions associated with Lyme disease ICD-9: 088.81 ICD-10: A69.29 04/14/2017 Active Other dorsalgia ICD-9: 723.1 ICD-10: M54.89 04/14/2017 Active Other fatigue ICD-9: 780.79 ICD-10: R53.83 02/24/2017 Active Pain in joints of left hand ICD-9: 719.44 ICD-10: M25.542 02/24/2017 Active Pain in joints of right hand ICD-9: 719.44 ICD-10: M25.541 02/24/2017 Active Pain in left elbow ICD- 9: 719.42 ICD-10: M25.522 02/24/2017 Active Impaired fasting glucose ICD-9: 790.21 ICD-10: R73.01 03/01/2016 Active Acute recurrent maxillary sinusitis ICD-9: 461.0 ICD-10: J01.01 10/30/2015 Active Mixed hyperlipidemia ICD- 9: 272.4 ICD-10: E78.2 10/30/2015 Active CELLULITIS ICD-9: 682.9 01/25/2014 Active Acute maxillary sinusitis ICD-9: 461.0 11/29/2013 Active Cough ICD-9: 786.2 11/29/2013 Active Encounter for long-term (current) use of other high-risk medications ICD-9: V58.69 11/10/2013 Active Allergic rhinitis ICD-9: 477.9 02/23/2013 Active Esophageal reflux ICD-9: 530.81 02/23/2013 Active Sore throat ICD-9: 462 02/23/2013 Active Hyperlipidemia Unknown 11/30/2012 Active HYPERLIPIDEMIA ICD-9: 272.4 11/30/2012 Active 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 11/30/2012 Active Hypertension Unknown 11/09/2012 Active ESSENTIAL HYPERTENSION ICD-9: 401.9 11/09/2012 Active Hip pain ICD-9: 719.45 11/09/2012 Active Renal artery stenosis ICD- 9: 440.1 11/09/2012 Active Medications Medication Codes Instructions Start Date Stop Date Status Fill Instructions lisinopril 40 mg tablet RxNorm: 874072 TAKE ONE-HALF TABLET BY MOUTH TWO TIMES DAILY 01/30/2019 01/24/2020 Active - First Attempt Ref: [id number] Flomax 0.4 mg capsule RxNorm: 414051 TAKE 2 CAPSULES BY MOUTH DAILY 11/07/2018 11/01/2019 Active - First Attempt Ref: [id number] Coreg 12.5 mg tablet RxNorm: 181044 TAKE 1 TABLET BY MOUTH TWO TIMES DAILY 09/21/2018 03/19/2019 Active - Ref: [id number] lisinopril 20 mg tablet RxNorm: 366344 1 Tablet(s) PO BID 05/17/2018 08/09/2019 Active Augmentin 500 mg-125 mg tablet RxNorm: 275111 1 Tablet(s) PO TID 04/29/2018 05/08/2018 Inactive Diflucan 150 mg tablet RxNorm: 632290 1 Tablet(s) PO daily 04/29/2018 05/03/2018 Inactive lisinopril 40 mg tablet RxNorm: 349682 1/2 Tablet(s) PO BID 03/09/2018 01/29/2019 Inactive change from lisinopril 20 BID lisinopril 40 mg tablet RxNorm: 162676 1/2 Tablet(s) PO BID 03/09/2018 03/08/2018 Inactive Coreg 12.5 mg tablet RxNorm: 716893 TAKE 1 TABLET BY MOUTH TWO TIMES DAILY 02/23/2018 08/21/2018 Inactive - Ref: [id number] amoxicillin 500 mg capsule RxNorm: 868751 1 Capsule(s) PO TID 10/19/2017 10/28/2017 Inactive amoxicillin 500 mg capsule RxNorm: 974146 1 Capsule(s) PO TID 10/19/2017 10/18/2017 Inactive Kenalog 40 mg/mL suspension for injection RxNorm: 1614967 1 Milliliter(s) Inj 10/06/2017 10/06/2017 Inactive Zithromax Z-[place] 250 mg tablet RxNorm: 772305 1 Tablet(s) PO UD 10/06/2017 02/22/2018 Inactive warfarin 3 mg tablet RxNorm: 215882 TAKE 1 TABLET BY MOUTH ON WEDNESDAY , WEDNESDAY , WEDNESDAY,WEDNESDAY, WEDNESDAY THEN 1 AND 1/2 TABLETS BY MOUTH ON WEDNESDAY AND Wednesday09/30/2017 06/21/2019 Active - Ref: [id number] Flomax 0.4 mg capsule RxNorm: 690381 TAKE 2 CAPSULES BY MOUTH DAILY 09/30/2017 11/06/2018 Inactive - Ref: [id number] omeprazole 20 mg capsule,delayed release RxNorm: 125008 1 Capsule(s) PO daily 06/23/2017 07/22/2017 Inactive lisinopril 20 mg tablet RxNorm: 151023 1 Tablet(s) PO BID 04/21/2017 03/08/2018 Inactive Coreg 12.5 mg tablet RxNorm: 937504 1 Tablet(s) PO BID 04/21/2017 05/20/2017 Inactive Coreg 12.5 mg tablet RxNorm: 304243 1 Tablet(s) PO BID 04/21/2017 04/20/2017 Inactive Augmentin 500 mg-125 mg tablet RxNorm: 001737 1 Tablet(s) PO TID 04/14/2017 04/22/2017 Inactive Diflucan 150 mg tablet RxNorm: 960099 1 Tablet(s) PO daily 04/14/2017 04/18/2017 Inactive Flomax 0.4 mg capsule RxNorm: 220781 Take 2 capsules by mouth daily 03/31/2017 09/29/2017 Inactive - First Attempt Ref: [id number] lisinopril 20 mg tablet RxNorm: 060548 1 Tablet(s) PO BID 03/11/2017 04/20/2017 Inactive Voltaren 1 % topical gel RxNorm: 158495 1 Application TOP BID as needed 03/09/2017 No Stop Date Active lisinopril 20 mg tablet RxNorm: 495757 2 Tablet(s) PO BID 02/26/2017 03/10/2017 Inactive cyclobenzaprine 5 mg tablet RxNorm: 793045 1 Tablet(s) PO TID as needed muscle spasms 02/24/2017 02/28/2017 Inactive warfarin 3 mg tablet RxNorm: 040804 1 Tablet(s) PO daily 11/23/2016 09/29/2017 Inactive lisinopril 20 mg tablet RxNorm: 775064 Take 2 tablets by mouth twice a day 09/22/2016 02/25/2017 Inactive - Ref: [id number] lisinopril 20 mg tablet RxNorm: 358780 1 Tablet(s) PO BID 05/07/2016 02/25/2017 Inactive First Attempt Coreg 25 mg tablet RxNorm: 904825 1 Tablet(s) PO BID 05/07/2016 02/23/[address] Reddy lisinopril 20 mg tablet RxNorm: 031717 1 Tablet(s) PO daily Take 2 tablets by mouth bid 05/07/2016 05/06/2016 Inactive First Attempt Flomax 0.4 mg capsule RxNorm: 035120 Take 2 capsules by mouth daily 03/15/2016 03/30/2017 Inactive - First Attempt lisinopril 20 mg tablet RxNorm: 724455 2 Tablet(s) PO BID Take 2 tablets by mouth bid 03/04/2016 05/06/2016 Inactive First Attempt lisinopril 20 mg tablet RxNorm: 330610 1 Tablet(s) PO BID Take 2 tablets by mouth daily 03/02/2016 03/03/2016 Inactive First Attempt Phenergan with Codeine Syrup RxNorm: 5 Milliliter(s) PO Q6 PRN 10/31/2015 No Stop Date Active Kenalog 40 mg/mL suspension for injection RxNorm: 6939141 Milliliter(s) Inj 10/31/2015 10/31/2015 Inactive warfarin 3 mg tablet RxNorm: 611645 Tablet(s) Take 1 tablet by mouth on tues,wed,thur,sat and sun and 1 and 1/2 tablets by mouth on mon and wed10/31/2015 07/23/2016 Inactive Zithromax Z-[place] 250 mg tablet RxNorm: 304965 1 Tablet(s) PO UD 10/31/2015 11/04/2015 Inactive zpack Coreg 3.125 mg tablet RxNorm: 371227 1 Tablet(s) PO BID 06/19/2015 05/06/2016 Inactive warfarin 3 mg tablet RxNorm: 440738 Take 1 tablet by mouth on tues,wed,thur,sat and sun and 1 and 1/2 tablets by mouth on wed and wed06/06/2015 06/05/2015 Inactive 2nd Attempt warfarin 3 mg tablet RxNorm: 898894 Tablet(s) Take 1 tablet by mouth on tues,wed,thur,sat and sun and 1 and 1/2 tablets by mouth on mon and wed06/06/2015 10/30/2015 Inactive 2nd Attempt Flomax 0.4 mg capsule RxNorm: 771775 Take 2 capsules by mouth daily 04/29/2015 01/23/2016 Inactive First Attempt lisinopril 10 mg tablet RxNorm: 513457 Take 2 tablets by mouth daily 04/29/2015 01/23/2016 Inactive First Attempt warfarin 3 mg tablet RxNorm: 717451 one wed thur sat sun 4.5mg wednesday Tablet(s) PO daily 07/25/2014 06/05/2015 Inactive Flomax 0.4 mg capsule RxNorm: 189946 2 Capsule(s) PO daily 07/25/2014 04/28/2015 Inactive lisinopril 10 mg tablet RxNorm: 633687 2 Tablet(s) PO daily 07/25/2014 04/28/2015 Inactive Coreg 3.125 mg tablet RxNorm: 140806 1 Tablet(s) PO BID 07/25/2014 06/18/2015 Inactive cephalexin 500 mg capsule RxNorm: 232097 1 Capsule(s) PO QID 11/29/2013 10/30/2015 Inactive lisinopril 20 mg tablet RxNorm: 113157 1 Tablet(s) PO BID 11/10/2013 03/09/2014 Inactive Flomax 0.4 mg capsule RxNorm: 960899 2 Capsule(s) PO daily 10/12/2013 07/24/2014 Inactive Coreg 3.125 mg tablet RxNorm: 174516 1 Tablet(s) PO BID 10/12/2013 07/24/2014 Inactive lisinopril 10 mg tablet RxNorm: 718209 2 Tablet(s) PO daily 10/12/2013 11/09/2013 Inactive warfarin 3 mg tablet RxNorm: 742782 one wed sat sun 4.5mg wednesday Tablet(s) PO daily 10/12/2013 07/24/2014 Inactive o Flomax 0.4 mg capsule RxNorm: 172588 2 Capsule(s) PO daily 06/05/2013 10/11/2013 Inactive Zetia 10 mg tablet RxNorm: 372659 1 Tablet(s) PO daily 05/16/2013 05/15/2013 Inactive Zetia 10 mg tablet RxNorm: 917521 1 Tablet(s) PO daily 05/16/2013 09/12/2013 Inactive Carafate 100 mg/mL Oral Susp RxNorm: 775909 10 Milliliter(s) PO QID 05/10/2013 10/30/2015 Inactive dispense one month supply Flomax 0.4 mg capsule RxNorm: 164133 2 Capsule(s) PO daily 05/10/2013 06/04/2013 Inactive Carafate 100 mg/mL Oral Susp RxNorm: 168843 10 Milliliter(s) PO QID 02/23/2013 04/23/2013 Inactive dispense one month supply gabapentin 100 mg capsule RxNorm: 167181 1 Capsule(s) PO daily one at bedtime and one up to three times daily as needed for nerve pain in leg 01/16/2013 05/09/2013 Inactive gabapentin 100 mg capsule RxNorm: 599766 1 Capsule(s) PO daily one at bedtime and one up to three times daily as needed for nerve pain in leg 01/12/2013 01/15/2013 Inactive warfarin 3 mg tablet RxNorm: 011857 Tablet(s) PO 12/05/2012 10/11/2013 Inactive one tue thur sat4.5 mg mon frid lisinopril 10 mg tablet RxNorm: 459141 2 Tablet(s) PO daily 11/30/2012 06/27/2013 Inactive gabapentin 100 mg capsule RxNorm: 928653 1 Capsule(s) PO Q8 PRN one at bedtime and one up to three times daily as needed for nerve pain in leg 11/30/2012 01/11/2013 Inactive Coreg 3.125 mg tablet RxNorm: 178484 1 Tablet(s) PO BID 11/09/2012 01/07/2013 Inactive lisinopril 10 mg tablet RxNorm: 545567 1.5 Tablet(s) PO daily 11/09/2012 11/29/2012 Inactive Co Q-10 oral RxNorm: 09794 oral No Start Date Active famotidine 20 mg tablet RxNorm: 586630 1 Tablet(s) PO QAM No Start Date Active Coreg 12.5 mg tablet RxNorm: 916560 1 Tablet(s) PO BID No Start Date 04/20/2017 Inactive Voltaren 1 % topical gel RxNorm: 423189 1 Application TOP BID as needed No Start Date 03/08/2017 Inactive lisinopril 20 mg tablet RxNorm: 507661 1 Tablet(s) PO BID No Start Date 05/16/2018 Inactive warfarin 3 mg tablet RxNorm: 519659 Tablet(s) PO No Start Date 12/04/2012 Inactive one tue thur sat4.5 mg mon frid Flomax 0.4 mg capsule RxNorm: 737204 1 Capsule(s) PO daily No Start Date 05/09/2013 Inactive niacin 500 mg tablet RxNorm: 330315 1 Tablet(s) PO daily No Start Date 03/01/2016 Inactive Medication Administered Medication Codes Instructions Start Date Status Kenalog 40 mg/mL suspension for injection RxNorm: 7341810 1Milliliter 10/06/2017 No longer Active Kenalog 40 mg/mL suspension for injection RxNorm: 8617803 Milliliter 10/31/2015 No longer Active Immunizations No Immunization data Assessments Condition Codes Effective Dates Other meterman (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 ICD-10: Z79.899 ICD-9: V58.69 01/03/2019 Essential (primary) hypertension ICD-10: I10 ICD-9: 401.1 01/03/2019 Cervicalgia ICD-10: M54.2 ICD-9: 723.1 04/15/2018 Essential (primary) hypertension ICD-10: I10 ICD-9: 401.9 04/15/2018 Paresthesia of skin ICD-10: R20.2 ICD-9: 782.0 04/15/2018 Benign prostatic hyperplasia with lower urinary tract symptoms ICD-10: N40.1 ICD-9: 600.91 12/01/2017 Other acute sinusitis ICD-10: J01.80 ICD-9: 461.8 10/06/2017 Other allergic rhinitis ICD-10: J30.89 ICD-9: 477.8 10/06/2017 Gastro-esophageal reflux disease without esophagitis ICD-10: K21.9 ICD-9: 530.81 06/23/2017 Pain in right [...] 786.2 11/29/2013 Acute maxillary sinusitis ICD-9: 461.0 11/29/2013 ESSENTIAL HYPERTENSION SNOMED: 39917156 ICD-9: 401.9 11/10/2013 Encounter for long-term (current) use of other high-risk medications ICD-9: V58.69 11/10/2013 HYPERLIPIDEMIA ICD-9: 272.4 05/10/2013 Allergic rhinitis ICD-9: 477.9 02/23/2013 Sore throat ICD-9: 462 02/23/2013 Esophageal reflux ICD-9: 530.81 02/23/2013 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 11/30/2012 Hip pain ICD-9: 719.45 11/09/2012 Renal artery stenosis ICD-9: 440.1 11/09/2012 Reason For Visit Reason For Visit Effective Dates Notes medication follow up 01/03/2019 Hospital Follow Up 04/15/2018 well man exam (65+ years) 12/01/2017 cough 10/06/2017 gas and bloating 06/23/2017 back pain 04/14/2017 forearm pain 02/24/2017 ribs blood pressure followup 05/07/2016 blood pressure followup 03/02/2016 fever 10/31/2015 skin lesion 01/25/2014 cough 11/29/2013 blood pressure followup 11/10/2013 hypertension 05/10/2013 sore throat 02/23/2013 hypertension 01/12/2013 hypertension 11/30/2012 hypertension 11/09/2012 Results Observation Observation Code Item Item Code Result Date Pt Opv0068 PT 24.1 seconds 01/03/2019 Pt Uco0211 INR 2.2 01/03/2019 Pt Ign6219 Low Intensity - 1.5-2.0 01/03/2019 Pt Snq6239 Mod intensity - 2.0-3.0 01/03/2019 Pt Vpi6602 Hi intensity - 3.0-4.0 01/03/2019 Pt Ipz2962 PT 25.5 seconds 08/29/2018 Pt Nzz9102 INR 2.4 08/29/2018 Pt Vnz1283 Low Intensity - 1.5-2.0 08/29/2018 Pt Zvw6752 Mod intensity - 2.0-3.0 08/29/2018 Pt Prz3979 Hi intensity - 3.0-4.0 08/29/2018 Pt Qzd8960 PT 35.9 seconds 08/11/2018 Pt Axb5296 INR 3.6 08/11/2018 Pt Hxv1695 Low Intensity - 1.5-2.0 08/11/2018 Pt Qom6635 Mod intensity - 2.0-3.0 08/11/2018 Pt Dtn7609 Hi intensity - 3.0-4.0 08/11/2018 Pt Sho4461 PT 27.2 seconds 06/16/2018 Pt Ndp4245 INR 2.5 06/16/2018 Pt Mlq6284 Low Intensity - 1.5-2.0 06/16/2018 Pt Dnb7934 Mod intensity - 2.0-3.0 06/16/2018 Pt Diy5524 Hi intensity - 3.0-4.0 06/16/2018 Pt Kru3633 PT 38.0 seconds 04/04/2018 Pt Dot5579 INR 3.8 04/04/2018 Pt Qwr8745 Low Intensity - 1.5-2.0 04/04/2018 Pt Kvf0563 Mod intensity - 2.0-3.0 04/04/2018 Pt Fuz9032 Hi intensity - 3.0-4.0 04/04/2018 Metabolic Ord15 [...] Magnesium Ord90 Mag 1.9 mg/dL 04/04/2018 Pt Gvr5060 PT 21.1 seconds 03/08/2018 Pt Psb7089 INR 1.8 03/08/2018 Pt Svp5289 Low Intensity - 1.5-2.0 03/08/2018 Pt Lcf6881 Mod intensity - 2.0-3.0 03/08/2018 Pt Jpq4944 Hi intensity - 3.0-4.0 03/08/2018 Pt Cuc4061 PT 37.2 seconds 02/23/2018 Pt Hlt1854 INR 3.7 02/23/2018 Pt Tgr7073 Low Intensity - 1.5-2.0 02/23/2018 Pt Suc9465 Mod intensity - 2.0-3.0 02/23/2018 Pt Usn4888 Hi intensity - 3.0-4.0 02/23/2018 Pt Vsa4475 PT 33.4 seconds 12/28/2017 Pt Ehy7849 INR 3.2 12/28/2017 Pt Fkc9037 Low Intensity - 1.5-2.0 12/28/2017 Pt Imi9483 Mod intensity - 2.0-3.0 12/28/2017 Pt Ubs2261 Hi intensity - 3.0-4.0 12/28/2017 Pt Klp1585 PT 30.2 seconds 10/06/2017 Pt Yiq9239 INR 2.9 10/06/2017 Pt Gza5662 Low Intensity - 1.5-2.0 10/06/2017 Pt Lfs6115 Mod intensity - 2.0-3.0 10/06/2017 Pt Klq7365 Hi intensity - 3.0-4.0 10/06/2017 Pt Oua6873 PT 33.3 seconds 06/23/2017 Pt Czq0055 INR 3.2 06/23/2017 Pt Dkb6979 Low Intensity - 1.5-2.0 06/23/2017 Pt Odf6068 Mod intensity - 2.0-3.0 06/23/2017 Pt Ovd6850 Hi intensity - 3.0-4.0 06/23/2017 Tsh Ord6 hTSH II 0.86 uIU/mL 02/24/2017 C-Reactive Protein Qnt Crqnt CRP 0.2 mg/dl 02/24/2017 Comp Metabolic Zko823 NA 139 mEq/L 02/24/2017 Comp Metabolic Mxr075 K 3.9 mEq/L 02/24/2017 Comp Metabolic Llh257 CL 105 mEq/L 02/24/2017 Comp Metabolic Ccf554 CO2 27.0 mEq/L 02/24/2017 Comp Metabolic Lnl567 ANION GAP 11 02/24/2017 Comp Metabolic Ozg094 GLUCOSE 93 mg/dL 02/24/2017 Comp Metabolic Qnz448 Creat 1.1 mg/dL 02/24/2017 Comp Metabolic Gtm249 eGFR 73 ml/min/1.73m2 02/24/2017 Comp Metabolic Jou984 BUN 14 mg/dL 02/24/2017 Comp Metabolic Ene554 B/C Ratio 13.1 Ratio 02/24/2017 Comp Metabolic Eez467 CALCIUM 8.4 mg/dL 02/24/2017 Comp Metabolic Wgv694 ALK PHOS 89 U/L 02/24/2017 Comp Metabolic Ndz520 AST(SGOT) 18 U/L 02/24/2017 Comp Metabolic Lwl722 ALT(SGPT) 21 U/L 02/24/2017 Comp Metabolic Mzx242 BILI T 0.5 mg/dL 02/24/2017 Comp Metabolic Has889 ALBUMIN 3.8 g/dL 02/24/2017 Comp Metabolic Zgt095 TPRO 6.5 g/dL 02/24/2017 Comp Metabolic Twi911 GLOB 2.7 g/dL 02/24/2017 Comp Metabolic Vei395 A/G Ratio 1.4 Ratio 02/24/2017 Comp Metabolic Otn048 Osmo 278 mOsmo 02/24/2017 Sed Rate Ord21 ESR 25 mm/hr 02/24/2017 Pt Wrp5285 PT 31.7 seconds 02/24/2017 Pt Hdz7132 INR 3.3 02/24/2017 Pt Mvp7728 Low Intensity - 1.5-2.0 02/24/2017 Pt Hph2673 Mod intensity - 2.0-3.0 02/24/2017 Pt Txi1937 Hi intensity - 3.0-4.0 02/24/2017 Cbc With [...] 29.6 pg 02/24/2017 Cbc With Differential Ord2 [place]% 9.7 % 02/24/2017 Cbc With Differential Ord2 MCHC 35.0 pg 02/24/2017 Cbc With Differential Ord2 Eos% 2.6 % 02/24/2017 Cbc With Differential Ord2 PLT 212 K/ul 02/24/2017 Cbc With Differential Ord2 Baso% 1.1 % 02/24/2017 Cbc With Differential Ord2 RDW 13.9 % 02/24/2017 Cbc With Differential Ord2 Neut ABS# 4.68 K/ul 02/24/2017 Cbc With Differential Ord2 Lymph ABS# 2.62 K/ul 02/24/2017 Cbc With Differential Ord2 [place] ABS# 0.8 K/ul 02/24/2017 Cbc With Differential Ord2 Eos ABS# 0.2 K/ul 02/24/2017 Cbc With Differential Ord2 Baso ABS# 0.1 K/ul 02/24/2017 Pt Qzt7115 PT 22.4 seconds 12/28/2016 Pt Cmk9728 INR 2.1 12/28/2016 Pt Mzv3675 Low Intensity - 1.5-2.0 12/28/2016 Pt Ibi7185 Mod intensity - 2.0-3.0 12/28/2016 Pt Ifr0180 Hi intensity - 3.0-4.0 12/28/2016 Pt Dff1782 PT 30.2 seconds 11/26/2016 Pt Ucm0289 INR 3.1 11/26/2016 Pt Gbh7479 Low Intensity - 1.5-2.0 11/26/2016 Pt Uig5653 Mod intensity - 2.0-3.0 11/26/2016 Pt Kbm2478 Hi intensity - 3.0-4.0 11/26/2016 Pt Wee8415 PT 34.3 seconds 11/20/2016 Pt Usm4515 INR 3.7 11/20/2016 Pt Fpc6154 Low Intensity - 1.5-2.0 11/20/2016 Pt Gax9259 Mod intensity - 2.0-3.0 11/20/2016 Pt Nfy7413 Hi intensity - 3.0-4.0 11/20/2016 Pt Qry4998 PT 29.0 seconds 07/14/2016 Pt Rie3447 INR 2.9 07/14/2016 Pt Tth6792 Low Intensity - 1.5-2.0 07/14/2016 Pt Xuu9848 Mod intensity - 2.0-3.0 07/14/2016 Pt Ucr1835 Hi intensity - 3.0-4.0 07/14/2016 Lipid Ord30 CHOL 236 mg/dL 07/14/2016 Lipid Ord30 HDL 36.0 mg/dl 07/14/2016 Lipid Ord30 TRIG 406 mg/dL 07/14/2016 Lipid Ord30 LDL Unable to calculate Due to elevated triglycerides mg/dL 07/14/2016 Lipid Ord30 C/HDL 6.6 Ratio 07/14/2016 Pt Pqp2117 PT 30.0 seconds 03/02/2016 Pt Uyc7471 INR 3.1 03/02/2016 Pt Vmy8003 Low Intensity - 1.5-2.0 03/02/2016 Pt Ell4942 Mod intensity - 2.0-3.0 03/02/2016 Pt Ucb1513 Hi intensity - 3.0-4.0 03/02/2016 %Hba1C Wvo586 % HbA1c 31988- 6 6.0 % 03/02/2016 %Hba1C Bnd052 Gluc Ave 126 mg/dL 03/02/2016 Tsh Ord6 hTSH II 0.68 uIU/mL 03/02/2016 Comp Metabolic Xnr531 NA 140 mEq/L 03/02/2016 Comp Metabolic Ruj104 K 4.1 mEq/L 03/02/2016 Comp Metabolic Mci971 CL 105 mEq/L 03/02/2016 Comp Metabolic Mlr228 CO2 29.0 mEq/L 03/02/2016 Comp Metabolic Qmw166 ANION GAP 10 03/02/2016 Comp Metabolic Ldb878 GLUCOSE 104 mg/dL 03/02/2016 Comp Metabolic Prw980 Creat 1.0 mg/dL 03/02/2016 Comp Metabolic Ssd671 eGFR 77 ml/min/1.73m2 03/02/2016 Comp Metabolic Azx749 BUN 15 mg/dL 03/02/2016 Comp Metabolic Gxf900 B/C Ratio 14.7 Ratio 03/02/2016 Comp Metabolic Hrs331 CALCIUM 8.9 mg/dL 03/02/2016 Comp Metabolic Rec956 ALK PHOS 84 U/L 03/02/2016 Comp Metabolic Ale139 AST(SGOT) 16 U/L 03/02/2016 Comp Metabolic Qan720 ALT(SGPT) 17 U/L 03/02/2016 Comp Metabolic Wmv117 BILI T 0.5 mg/dL 03/02/2016 Comp Metabolic Kjv961 ALBUMIN 4.0 g/dL 03/02/2016 Comp Metabolic Jxi958 TPRO 6.6 g/dL 03/02/2016 Comp Metabolic Wne247 GLOB 2.6 g/dL 03/02/2016 Comp Metabolic Jyf017 A/G Ratio 1.5 Ratio 03/02/2016 Comp Metabolic Lua289 Osmo 281 mOsmo 03/02/2016 Cbc With Differential [...] 28.4 % 03/02/2016 Cbc With Differential Ord2 MCH 29.3 pg 03/02/2016 Cbc With Differential Ord2 [place]% 8.1 % 03/02/2016 Cbc With Differential Ord2 MCHC 34.0 pg 03/02/2016 Cbc With Differential Ord2 Eos% 1.9 % 03/02/2016 Cbc With Differential Ord2 PLT 232 K/ul 03/02/2016 Cbc With Differential Ord2 Baso% 1.2 % 03/02/2016 Cbc With Differential Ord2 RDW 14.0 % 03/02/2016 Cbc With Differential Ord2 Neut ABS# 4.86 K/ul 03/02/2016 Cbc With Differential Ord2 Lymph ABS# 2.29 K/ul 03/02/2016 Cbc With Differential Ord2 [place] ABS# 0.7 K/ul 03/02/2016 Cbc With Differential [...] 28.8 pg 10/31/2015 Cbc With Differential Ord2 [place]% 12.7 % 10/31/2015 Cbc With Differential Ord2 MCHC 34.0 pg 10/31/2015 Cbc With Differential Ord2 Eos% 1.4 % 10/31/2015 Cbc With Differential Ord2 PLT 222 K/ul 10/31/2015 Cbc With Differential Ord2 Baso% 0.6 % 10/31/2015 Cbc With Differential Ord2 RDW 14.4 % 10/31/2015 Cbc With Differential Ord2 Neut ABS# 3.07 K/ul 10/31/2015 Cbc With Differential Ord2 Lymph ABS# 1.31 K/ul 10/31/2015 Cbc With Differential Ord2 [place] ABS# 0.7 K/ul 10/31/2015 Cbc With Differential [...] hTSH II 0.88 uIU/mL 10/31/2015 Comp Metabolic Afi641 NA 135 mEq/L 10/31/2015 Comp Metabolic Pxw700 K 4.2 mEq/L 10/31/2015 Comp Metabolic Xhq725 CL 99 mEq/L 10/31/2015 Comp Metabolic Jjx712 CO2 28.0 mEq/L 10/31/2015 Comp Metabolic Ycp706 ANION GAP 12 10/31/2015 Comp Metabolic Lld626 GLUCOSE 107 mg/dL 10/31/2015 Comp Metabolic Gxf296 Creat 1.2 mg/dL 10/31/2015 Comp Metabolic Gij266 eGFR 63 ml/min/1.73m2 10/31/2015 Comp Metabolic Tze549 BUN 12 mg/dL 10/31/2015 Comp Metabolic Djg721 B/C Ratio 9.9 Ratio 10/31/2015 Comp Metabolic Onz188 CALCIUM 8.4 mg/dL 10/31/2015 Comp Metabolic Fim439 ALK PHOS 134 U/L 10/31/2015 Comp Metabolic Wzu628 AST(SGOT) 20 U/L 10/31/2015 Comp Metabolic Utu411 ALT(SGPT) 16 U/L 10/31/2015 Comp Metabolic Rar711 BILI T 0.4 mg/dL 10/31/2015 Comp Metabolic Ysg760 ALBUMIN 4.2 g/dL 10/31/2015 Comp Metabolic Azz605 TPRO 7.2 g/dL 10/31/2015 Comp Metabolic Wrt826 GLOB 3.1 g/dL 10/31/2015 Comp Metabolic Jhk091 A/G Ratio 1.4 Ratio 10/31/2015 Comp Metabolic Bqc211 Osmo 270 mOsmo 10/31/2015 Total Psa Ord10 PSA 2.66 ng/mL 10/31/2015 %Hba1C Ytq692 % HbA1c 87918- 6 6.1 % 10/31/2015 %Hba1C Bqj917 Gluc Ave 128 mg/dL 10/31/2015 Pt Kri0557 PT 26.4 seconds 10/31/2015 Pt Qkj3503 INR 2.5 10/31/2015 Pt Cul3972 Low Intensity - 1.5-2.0 10/31/2015 Pt Oeb7872 Mod intensity - 2.0-3.0 10/31/2015 Pt Fzd6128 Hi intensity - 3.0-4.0 10/31/2015 TSH [id number] TSH 0.819 uIU/ML 11/10/2013 PT/MC [id number] PRO TIME 24.5 SEC 11/10/2013 PT/MC [id number] INR MCMC 2.3 11/10/2013 GFR CALC 7230402 GFR AA >60 ML/MIN 11/10/2013 GFR CALC 2937904 GFR NON-AA >60 ML/MIN 11/10/2013 CBC [id number] WBC 8.4 10e9/L 11/10/2013 CBC [id number] RBC 5.24 10e12/L 11/10/2013 CBC [id number] HGB 15.4 g/dL 11/10/2013 CBC [id number] HCT DET 43.8 % 11/10/2013 CBC [id number] MCV 83.6 fL 11/10/2013 CBC [id number] MCH 29.4 pg 11/10/2013 CBC [id number] MCHC 35.2 g/dL 11/10/2013 CBC [id number] PLT 250 10e9/L 11/10/2013 CBC [id number] MPV 11.1 fL 11/10/2013 CBC [id number] OANH % 58.1 % 11/10/2013 CBC [id number] LY % 28.5 % 11/10/2013 CBC [id number] MON % 10.2 % 11/10/2013 CBC [id number] EOS % 2.1 % 11/10/2013 CBC [id number] BASO % 1.1 % 11/10/2013 CBC [id number] RDW 13.3 % 11/10/2013 CBC [id number] ABS OANH 4.88 10e9/L 11/10/2013 CBC [id number] ABS LYMPH 2.39 10e9/L 11/10/2013 CBC [id number] ABS MONO 0.86 10e9/L 11/10/2013 CBC [id number] ABS EOS 0.18 10e9/L 11/10/2013 CBC [id number] ABS BASO 0.09 10e9/L 11/10/2013 CBC [id number] RDW-SD 40.7 fL 11/10/2013 CHEM 14 [id number] AST 17 U/L 11/10/2013 CHEM 14 [id number] ALT 17 IU/L 11/10/2013 CHEM 14 [id number] BUN 15 MG/DL 11/10/2013 CHEM 14 [id number] ALBUMIN 4.3 GM/DL 11/10/2013 CHEM 14 [id number] CHLORIDE 103 MMOL/L 11/10/2013 CHEM 14 [id number] BILI TOT 0.6 MG/DL 11/10/2013 CHEM 14 0815075 ALK PHOS 104 U/L 11/10/2013 CHEM 14 [id number] SODIUM 137 MMOL/L 11/10/2013 CHEM 14 [id number] CREATININE 1.08 MG/DL 11/10/2013 CHEM 14 [id number] CALCIUM 8.9 MG/DL 11/10/2013 CHEM 14 [id number] POTASSIUM 4.0 MMOL/L 11/10/2013 CHEM 14 4682089 PROT TOT 7.0 GM/DL 11/10/2013 CHEM 14 [id number] GLUCOSE 84 MG/DL 11/10/2013 CHEM 14 [id number] BICARB 28 MMOL/L 11/10/2013 CHEM 14 2644340 ANION GAP 6 MEQ/L 11/10/2013 Review of Systems System Result Effective Dates Constitutional No recent illness 01/03/2019 Constitutional No chills 01/03/2019 Constitutional No diaphoresis 01/03/2019 Constitutional No fever 01/03/2019 Eyes No eye erythema 01/03/2019 Ears/Nose/Throat/Neck No nasal discharge 01/03/2019 Cardiovascular No chest pain/pressure 01/03/2019 Cardiovascular No dyspnea 01/03/2019 Respiratory No chest congestion 01/03/2019 Respiratory No cough 01/03/2019 Gastrointestinal No abdominal pain 01/03/2019 Neurologic No alteration of consciousness 01/03/2019 Neurologic No mental status change 01/03/2019 Cardiovascular edema 01/03/2019 Constitutional recent illness 04/15/2018 Constitutional No chills 04/15/2018 Constitutional No diaphoresis 04/15/2018 Constitutional No fever 04/15/2018 Constitutional fatigue 04/15/2018 Constitutional malaise 04/15/2018 Eyes No eye erythema 04/15/2018 Ears/Nose/Throat/Neck No nasal discharge 04/15/2018 Ears/Nose/Throat/Neck No nasal allergies 04/15/2018 Cardiovascular No chest pain/pressure 04/15/2018 Cardiovascular No dyspnea 04/15/2018 Cardiovascular No near-syncope/dizziness 04/15/2018 Cardiovascular No palpitations 04/15/2018 Cardiovascular fatigue 04/15/2018 Respiratory No cough 04/15/2018 Respiratory No chest congestion 04/15/2018 Gastrointestinal No abdominal pain 04/15/2018 Gastrointestinal No vomiting 04/15/2018 Gastrointestinal No nausea 04/15/2018 Gastrointestinal No constipation 04/15/2018 Gastrointestinal No diarrhea 04/15/2018 Genitourinary/Nephrology No dysuria 04/15/2018 Musculoskeletal arthralgia(s) 04/15/2018 Dermatologic No rash 04/15/2018 Neurologic No alteration of consciousness 04/15/2018 Neurologic No mental status change 04/15/2018 Neurologic No headache 04/15/2018 Neurologic No gait abnormality 04/15/2018 Neurologic No aphasia 04/15/2018 Neurologic dizziness 04/15/2018 Neurologic No dyskinesia or tremor 04/15/2018 Neurologic paresthesia 04/15/2018 Constitutional No recent illness 12/01/2017 Constitutional No chills 12/01/2017 Constitutional No diaphoresis 12/01/2017 Constitutional fatigue 12/01/2017 Constitutional No fever 12/01/2017 Constitutional No insomnia 12/01/2017 Constitutional No malaise 12/01/2017 Eyes No eye discharge 12/01/2017 Eyes No eye erythema 12/01/2017 Ears/Nose/Throat/Neck No nasal allergies 12/01/2017 Ears/Nose/Throat/Neck No nasal discharge 12/01/2017 Cardiovascular No dyspnea 12/01/2017 Respiratory No chest congestion 12/01/2017 Respiratory No cough 12/01/2017 Gastrointestinal No abdominal pain 12/01/2017 Gastrointestinal No constipation 12/01/2017 Gastrointestinal No diarrhea 12/01/2017 Gastrointestinal No nausea 12/01/2017 Gastrointestinal No vomiting 12/01/2017 Genitourinary/Nephrology No dysuria 12/01/2017 Musculoskeletal joint complaint 12/01/2017 Dermatologic No rash 12/01/2017 Dermatologic No sores 12/01/2017 Neurologic No alteration of consciousness 12/01/2017 Cardiovascular No chest pain/pressure 12/01/2017 Respiratory dyspnea on exertion 12/01/2017 Respiratory No dyspnea 12/01/2017 Genitourinary/Nephrology urinary retention/hesitancy 12/01/2017 Genitourinary/Nephrology nocturia 12/01/2017 Neurologic No mental status change 12/01/2017 Constitutional recent illness 10/06/2017 Constitutional No chills 10/06/2017 Constitutional No diaphoresis 10/06/2017 Constitutional No fever 10/06/2017 Eyes No eye erythema 10/06/2017 Ears/Nose/Throat/Neck nasal allergies 10/06/2017 Ears/Nose/Throat/Neck nasal discharge 10/06/2017 Ears/Nose/Throat/Neck postnasal drip 10/06/2017 Ears/Nose/Throat/Neck sinus congestion 10/06/2017 Ears/Nose/Throat/Neck No sore throat 10/06/2017 Cardiovascular No chest pain/pressure 10/06/2017 Cardiovascular No dyspnea 10/06/2017 Respiratory No chest congestion 10/06/2017 Respiratory cough 10/06/2017 Respiratory No dyspnea 10/06/2017 Gastrointestinal No abdominal pain 10/06/2017 Gastrointestinal No constipation 10/06/2017 Gastrointestinal No diarrhea 10/06/2017 Gastrointestinal No nausea 10/06/2017 Gastrointestinal No vomiting 10/06/2017 Dermatologic No rash 10/06/2017 Neurologic No alteration of consciousness 10/06/2017 Neurologic No mental status change 10/06/2017 Constitutional No recent illness 06/23/2017 Constitutional No chills 06/23/2017 Constitutional No diaphoresis 06/23/2017 Constitutional No fever 06/23/2017 Eyes No eye erythema 06/23/2017 Ears/Nose/Throat/Neck No nasal allergies 06/23/2017 Ears/Nose/Throat/Neck No nasal discharge 06/23/2017 Cardiovascular No chest pain/pressure 06/23/2017 Cardiovascular No dyspnea 06/23/2017 Respiratory No cough 06/23/2017 Respiratory No dyspnea 06/23/2017 Gastrointestinal abdominal pain 06/23/2017 Gastrointestinal No constipation 06/23/2017 Gastrointestinal No diarrhea 06/23/2017 Gastrointestinal gas and bloating 06/23/2017 Gastrointestinal No dyspepsia 06/23/2017 Gastrointestinal nausea 06/23/2017 Gastrointestinal No vomiting 06/23/2017 Musculoskeletal joint complaint 06/23/2017 Dermatologic No rash 06/23/2017 Neurologic No alteration of consciousness 06/23/2017 Neurologic No mental status change 06/23/2017 Constitutional No recent illness 04/14/2017 Constitutional No chills 04/14/2017 Constitutional No diaphoresis 04/14/2017 Constitutional No fever 04/14/2017 Eyes No eye erythema 04/14/2017 Ears/Nose/Throat/Neck No nasal allergies 04/14/2017 Ears/Nose/Throat/Neck No nasal discharge 04/14/2017 Cardiovascular No chest pain/pressure 04/14/2017 Cardiovascular No dyspnea 04/14/2017 Respiratory No dyspnea 04/14/2017 Respiratory No cough 04/14/2017 Gastrointestinal No abdominal pain 04/14/2017 Gastrointestinal No vomiting 04/14/2017 Gastrointestinal No nausea 04/14/2017 Gastrointestinal No diarrhea 04/14/2017 Gastrointestinal No constipation 04/14/2017 Musculoskeletal back pain 04/14/2017 Musculoskeletal joint complaint 04/14/2017 Dermatologic No rash 04/14/2017 Neurologic No alteration of consciousness 04/14/2017 Neurologic No mental status change 04/14/2017 Constitutional No recent illness 02/24/2017 Constitutional No chills 02/24/2017 Constitutional No diaphoresis 02/24/2017 Constitutional No fever 02/24/2017 Constitutional fatigue 02/24/2017 Eyes No eye erythema 02/24/2017 Ears/Nose/Throat/Neck No nasal allergies 02/24/2017 Ears/Nose/Throat/Neck No nasal discharge 02/24/2017 Cardiovascular No chest pain/pressure 02/24/2017 Cardiovascular No dyspnea 02/24/2017 Respiratory No cough 02/24/2017 Respiratory No dyspnea 02/24/2017 Gastrointestinal No abdominal pain 02/24/2017 Musculoskeletal joint complaint 02/24/2017 Dermatologic No rash 02/24/2017 Neurologic No alteration of consciousness 02/24/2017 Neurologic No mental status change 02/24/2017 Constitutional No recent illness 05/07/2016 Constitutional No anorexia 05/07/2016 Constitutional No night sweats 05/07/2016 Constitutional No chills 05/07/2016 Constitutional No diaphoresis 05/07/2016 Constitutional fatigue 05/07/2016 Constitutional No fever 05/07/2016 Constitutional No insomnia 05/07/2016 Constitutional No malaise 05/07/2016 Eyes No eye discharge 05/07/2016 Eyes No eye erythema 05/07/2016 Ears/Nose/Throat/Neck No dizziness 05/07/2016 Ears/Nose/Throat/Neck No headache 05/07/2016 Ears/Nose/Throat/Neck No nasal allergies 05/07/2016 Ears/Nose/Throat/Neck No nasal discharge 05/07/2016 Respiratory No productive sputum 05/07/2016 Respiratory No chest congestion 05/07/2016 Respiratory No cough 05/07/2016 Gastrointestinal No abdominal pain 05/07/2016 Gastrointestinal No constipation 05/07/2016 Gastrointestinal No diarrhea 05/07/2016 Gastrointestinal No nausea 05/07/2016 Gastrointestinal No vomiting 05/07/2016 Genitourinary/Nephrology No dysuria 05/07/2016 Dermatologic No rash 05/07/2016 Dermatologic No sores 05/07/2016 Constitutional No weight loss 05/07/2016 Constitutional No weight gain 05/07/2016 Cardiovascular chest pain/pressure 05/07/2016 Cardiovascular No dyspnea 05/07/2016 Cardiovascular No edema 05/07/2016 Musculoskeletal joint complaint 05/07/2016 Neurologic No alteration of consciousness 05/07/2016 Constitutional recent illness 03/02/2016 Constitutional No anorexia 03/02/2016 Constitutional No night sweats 03/02/2016 Constitutional No chills 03/02/2016 Constitutional No diaphoresis 03/02/2016 Constitutional fatigue 03/02/2016 Constitutional No fever 03/02/2016 Constitutional No insomnia 03/02/2016 Constitutional No malaise 03/02/2016 Constitutional No weight loss 03/02/2016 Constitutional No weight gain 03/02/2016 Eyes No eye discharge 03/02/2016 Eyes No eye erythema 03/02/2016 Ears/Nose/Throat/Neck dizziness 03/02/2016 Ears/Nose/Throat/Neck headache 03/02/2016 Ears/Nose/Throat/Neck No nasal discharge 03/02/2016 Cardiovascular chest pain/pressure 03/02/2016 Cardiovascular fatigue 03/02/2016 Cardiovascular hypertension 03/02/2016 Respiratory No cough 03/02/2016 Respiratory No productive sputum 03/02/2016 Gastrointestinal No abdominal pain 03/02/2016 Gastrointestinal No constipation 03/02/2016 Gastrointestinal No diarrhea 03/02/2016 Genitourinary/Nephrology No dysuria 03/02/2016 Musculoskeletal No joint complaint 03/02/2016 Dermatologic No rash 03/02/2016 Dermatologic No sores 03/02/2016 Neurologic No alteration of consciousness 03/02/2016 Psychiatric No anxiety 03/02/2016 Respiratory No cough 10/31/2015 Respiratory No chest tightness 10/31/2015 Respiratory No chest congestion 10/31/2015 Respiratory No cigarette smoking 10/31/2015 Respiratory No productive sputum 10/31/2015 Respiratory No dyspnea 10/31/2015 Respiratory No dyspnea on exertion 10/31/2015 Cardiovascular No chest pain/pressure 10/31/2015 Ears/Nose/Throat/Neck nasal discharge 10/31/2015 Ears/Nose/Throat/Neck No nasal allergies 10/31/2015 Ears/Nose/Throat/Neck headache 10/31/2015 Ears/Nose/Throat/Neck otalgia 10/31/2015 Ears/Nose/Throat/Neck otitis media 10/31/2015 Ears/Nose/Throat/Neck sinus congestion 10/31/2015 Ears/Nose/Throat/Neck No sore throat 10/31/2015 Gastrointestinal No constipation 10/31/2015 Gastrointestinal No diarrhea 10/31/2015 Gastrointestinal No vomiting 10/31/2015 Gastrointestinal No nausea 10/31/2015 Eyes eye pain 10/31/2015 Eyes No vision change 10/31/2015 Constitutional No recent illness 10/31/2015 Constitutional No anorexia 10/31/2015 Constitutional No night sweats 10/31/2015 Constitutional No chills 10/31/2015 Constitutional No diaphoresis 10/31/2015 Constitutional No fatigue 10/31/2015 Constitutional fever 10/31/2015 Constitutional No insomnia 10/31/2015 Constitutional No malaise 10/31/2015 Constitutional No weight loss 10/31/2015 Constitutional No weight gain 10/31/2015 Constitutional No obesity 10/31/2015 Genitourinary/Nephrology No dysuria 10/31/2015 Genitourinary/Nephrology No nocturia 10/31/2015 Musculoskeletal No muscle weakness 10/31/2015 Musculoskeletal joint complaint 10/31/2015 Musculoskeletal myalgias 10/31/2015 Musculoskeletal No back pain 10/31/2015 Musculoskeletal stiffness 10/31/2015 Dermatologic No rash 10/31/2015 Dermatologic No sores 10/31/2015 Dermatologic skin lesion 10/31/2015 Psychiatric No depression 10/31/2015 Psychiatric No anxiety 10/31/2015 Constitutional No recent illness 01/25/2014 Constitutional No chills 01/25/2014 Constitutional No fatigue 01/25/2014 Constitutional No fever 01/25/2014 Dermatologic rash 01/25/2014 Dermatologic sores 01/25/2014 Psychiatric No anxiety 01/25/2014 Cardiovascular No chest pain/pressure 01/25/2014 Cardiovascular No dyspnea 01/25/2014 Respiratory No cough 01/25/2014 Respiratory No chest congestion 01/25/2014 Constitutional No fatigue 11/29/2013 Constitutional recent illness 11/29/2013 Ears/Nose/Throat/Neck No facial pain 11/29/2013 Ears/Nose/Throat/Neck headache 11/29/2013 Ears/Nose/Throat/Neck nasal discharge 11/29/2013 Ears/Nose/Throat/Neck No sinusitis 11/29/2013 Ears/Nose/Throat/Neck No sore throat 11/29/2013 Cardiovascular No chest pain/pressure 11/29/2013 Cardiovascular No dyspnea 11/29/2013 Cardiovascular No edema 11/29/2013 Cardiovascular No fatigue 11/29/2013 Cardiovascular No syncope 11/29/2013 Respiratory No chest tightness 11/29/2013 Respiratory No cigarette smoking 11/29/2013 Respiratory No cough 11/29/2013 Respiratory No dyspnea 11/29/2013 Respiratory No wheezing 11/29/2013 Gastrointestinal No constipation 11/29/2013 Gastrointestinal No diarrhea 11/29/2013 Gastrointestinal No dyspepsia 11/29/2013 Gastrointestinal No nausea 11/29/2013 Musculoskeletal No muscle weakness 11/29/2013 Musculoskeletal No myalgias 11/29/2013 Dermatologic No rash 11/29/2013 Neurologic No ataxia 11/29/2013 Neurologic No dizziness 11/29/2013 Neurologic No pain, facial 11/29/2013 Psychiatric No anxiety 11/29/2013 Psychiatric No depression 11/29/2013 Constitutional No recent illness 11/10/2013 Constitutional No anorexia 11/10/2013 Constitutional No night sweats 11/10/2013 Constitutional No chills 11/10/2013 Constitutional No diaphoresis 11/10/2013 Constitutional No fatigue 11/10/2013 Constitutional No fever 11/10/2013 Constitutional No malaise 11/10/2013 Constitutional No insomnia 11/10/2013 Eyes No eye discharge 11/10/2013 Eyes No eye erythema 11/10/2013 Ears/Nose/Throat/Neck No dizziness 11/10/2013 Ears/Nose/Throat/Neck No headache 11/10/2013 Ears/Nose/Throat/Neck No nasal discharge 11/10/2013 Ears/Nose/Throat/Neck No nasal allergies 11/10/2013 Respiratory No productive sputum 11/10/2013 Respiratory No chest congestion 11/10/2013 Respiratory No cough 11/10/2013 Gastrointestinal No abdominal pain 11/10/2013 Gastrointestinal No constipation 11/10/2013 Gastrointestinal No diarrhea 11/10/2013 Gastrointestinal No nausea 11/10/2013 Gastrointestinal No vomiting 11/10/2013 Genitourinary/Nephrology No dysuria 11/10/2013 Dermatologic No sores 11/10/2013 Dermatologic No rash 11/10/2013 Constitutional No recent illness 05/10/2013 Constitutional No chills 05/10/2013 Constitutional No fatigue 05/10/2013 Constitutional No fever 05/10/2013 Constitutional No insomnia 05/10/2013 Constitutional No malaise 05/10/2013 Eyes No blindness 05/10/2013 Eyes No vision change 05/10/2013 Ears/Nose/Throat/Neck No dental pain 05/10/2013 Ears/Nose/Throat/Neck No dizziness 05/10/2013 Ears/Nose/Throat/Neck No dysphagia 05/10/2013 Ears/Nose/Throat/Neck No headache 05/10/2013 Ears/Nose/Throat/Neck No hearing loss 05/10/2013 Ears/Nose/Throat/Neck No nasal allergies 05/10/2013 Ears/Nose/Throat/Neck No sore throat 05/10/2013 Ears/Nose/Throat/Neck No postnasal drip 05/10/2013 Ears/Nose/Throat/Neck No sinus congestion 05/10/2013 Respiratory No chest tightness 05/10/2013 Respiratory No cigarette smoking 05/10/2013 Respiratory No cough 05/10/2013 Respiratory No dyspnea 05/10/2013 Respiratory No pedal edema 05/10/2013 Respiratory No snoring 05/10/2013 Respiratory No wheezing 05/10/2013 Gastrointestinal No hemorrhoids 05/10/2013 Gastrointestinal No abdominal pain 05/10/2013 Gastrointestinal No constipation 05/10/2013 Gastrointestinal No diarrhea 05/10/2013 Gastrointestinal No gastroesophageal reflux 05/10/2013 Gastrointestinal No melena 05/10/2013 Gastrointestinal No nausea 05/10/2013 Gastrointestinal No vomiting 05/10/2013 Musculoskeletal stiffness 05/10/2013 Musculoskeletal No swelling 05/10/2013 Musculoskeletal arthralgia(s) 05/10/2013 Musculoskeletal joint complaint 05/10/2013 Musculoskeletal No muscle weakness 05/10/2013 Musculoskeletal myalgias 05/10/2013 Dermatologic No rash 05/10/2013 [...] vision change 02/23/2013 Respiratory No chest tightness 02/23/2013 Respiratory No cigarette smoking 02/23/2013 Respiratory No cough 02/23/2013 Respiratory No dyspnea 02/23/2013 Respiratory No pedal edema 02/23/2013 Respiratory No snoring 02/23/2013 Respiratory No wheezing 02/23/2013 Gastrointestinal No hemorrhoids 02/23/2013 Gastrointestinal No abdominal pain 02/23/2013 Gastrointestinal No constipation 02/23/2013 Gastrointestinal No diarrhea 02/23/2013 Gastrointestinal gastroesophageal reflux 02/23/2013 Gastrointestinal No melena 02/23/2013 Gastrointestinal No nausea 02/23/2013 Gastrointestinal No vomiting 02/23/2013 Musculoskeletal stiffness 02/23/2013 Musculoskeletal No swelling 02/23/2013 Musculoskeletal arthralgia(s) 02/23/2013 Musculoskeletal joint complaint 02/23/2013 Musculoskeletal No muscle weakness 02/23/2013 Musculoskeletal myalgias 02/23/2013 Dermatologic No rash 02/23/2013 Constitutional No recent illness 01/12/2013 Constitutional No chills 01/12/2013 Constitutional No fatigue 01/12/2013 Constitutional No fever 01/12/2013 Constitutional No insomnia 01/12/2013 Constitutional No malaise 01/12/2013 Eyes No blindness 01/12/2013 Eyes No vision change 01/12/2013 Ears/Nose/Throat/Neck No dental pain 01/12/2013 Ears/Nose/Throat/Neck No dizziness 01/12/2013 Ears/Nose/Throat/Neck No dysphagia 01/12/2013 Ears/Nose/Throat/Neck No headache 01/12/2013 Ears/Nose/Throat/Neck No hearing loss 01/12/2013 Ears/Nose/Throat/Neck No nasal allergies 01/12/2013 Ears/Nose/Throat/Neck No sore throat 01/12/2013 Ears/Nose/Throat/Neck No postnasal drip 01/12/2013 Ears/Nose/Throat/Neck No sinus congestion 01/12/2013 Respiratory No chest tightness 01/12/2013 Respiratory No cigarette smoking 01/12/2013 Respiratory No cough 01/12/2013 Respiratory No dyspnea 01/12/2013 Respiratory No pedal edema 01/12/2013 Respiratory No snoring 01/12/2013 Respiratory No wheezing 01/12/2013 Gastrointestinal No hemorrhoids 01/12/2013 Gastrointestinal No abdominal pain 01/12/2013 Gastrointestinal No constipation 01/12/2013 Gastrointestinal No diarrhea 01/12/2013 Gastrointestinal No gastroesophageal reflux 01/12/2013 Gastrointestinal No melena 01/12/2013 Gastrointestinal No nausea 01/12/2013 Gastrointestinal No vomiting 01/12/2013 Musculoskeletal stiffness 01/12/2013 Musculoskeletal No swelling 01/12/2013 Musculoskeletal arthralgia(s) 01/12/2013 Musculoskeletal joint complaint 01/12/2013 Musculoskeletal No muscle weakness 01/12/2013 Musculoskeletal myalgias 01/12/2013 Dermatologic No rash 01/12/2013 Dermatologic No scar 01/12/2013 Neurologic No dizziness 01/12/2013 Neurologic No headache 01/12/2013 Neurologic No neck pain 01/12/2013 Neurologic No syncope 01/12/2013 Psychiatric No anxiety 01/12/2013 Psychiatric No depression 01/12/2013 Constitutional No recent illness 11/30/2012 Constitutional No chills 11/30/2012 Constitutional No fatigue 11/30/2012 Constitutional No fever 11/30/2012 Constitutional No insomnia 11/30/2012 Constitutional No malaise 11/30/2012 Eyes No blindness 11/30/2012 Eyes No vision change 11/30/2012 Ears/Nose/Throat/Neck No dental pain 11/30/2012 Ears/Nose/Throat/Neck No dizziness 11/30/2012 Ears/Nose/Throat/Neck No dysphagia 11/30/2012 Ears/Nose/Throat/Neck No headache 11/30/2012 Ears/Nose/Throat/Neck No hearing loss 11/30/2012 Ears/Nose/Throat/Neck No nasal allergies 11/30/2012 Ears/Nose/Throat/Neck No sore throat 11/30/2012 Ears/Nose/Throat/Neck No postnasal drip 11/30/2012 Ears/Nose/Throat/Neck No sinus congestion 11/30/2012 Respiratory No chest tightness 11/30/2012 Respiratory No cigarette smoking 11/30/2012 Respiratory No cough 11/30/2012 Respiratory No dyspnea 11/30/2012 Respiratory No pedal edema 11/30/2012 Respiratory No snoring 11/30/2012 Respiratory No wheezing 11/30/2012 Gastrointestinal No hemorrhoids 11/30/2012 Gastrointestinal No abdominal pain 11/30/2012 Gastrointestinal No constipation 11/30/2012 Gastrointestinal No diarrhea 11/30/2012 Gastrointestinal No gastroesophageal reflux 11/30/2012 Gastrointestinal No melena 11/30/2012 Gastrointestinal No nausea 11/30/2012 Gastrointestinal No vomiting 11/30/2012 Musculoskeletal stiffness 11/30/2012 Musculoskeletal No swelling 11/30/2012 Musculoskeletal arthralgia(s) 11/30/2012 Musculoskeletal joint complaint 11/30/2012 Musculoskeletal No muscle weakness 11/30/2012 Musculoskeletal myalgias 11/30/2012 Dermatologic No rash 11/30/2012 Dermatologic No scar 11/30/2012 Neurologic No dizziness 11/30/2012 Neurologic No headache 11/30/2012 Neurologic No neck pain 11/30/2012 Neurologic No syncope 11/30/2012 Psychiatric No anxiety 11/30/2012 Psychiatric No depression 11/30/2012 Constitutional No recent illness 11/09/2012 Constitutional No chills 11/09/2012 Constitutional No fatigue 11/09/2012 Constitutional No fever 11/09/2012 Constitutional No insomnia 11/09/2012 Constitutional No malaise 11/09/2012 Eyes No blindness 11/09/2012 Eyes No vision change 11/09/2012 Ears/Nose/Throat/Neck No dental pain 11/09/2012 Ears/Nose/Throat/Neck No dizziness 11/09/2012 Ears/Nose/Throat/Neck No dysphagia 11/09/2012 Ears/Nose/Throat/Neck No headache 11/09/2012 Ears/Nose/Throat/Neck No hearing loss 11/09/2012 Ears/Nose/Throat/Neck No nasal allergies 11/09/2012 Ears/Nose/Throat/Neck No sore throat 11/09/2012 Ears/Nose/Throat/Neck No postnasal drip 11/09/2012 Ears/Nose/Throat/Neck No sinus congestion 11/09/2012 Respiratory No chest tightness 11/09/2012 Respiratory No cigarette smoking 11/09/2012 Respiratory No cough 11/09/2012 Respiratory No dyspnea 11/09/2012 Respiratory No pedal edema 11/09/2012 Respiratory No snoring 11/09/2012 Respiratory No wheezing 11/09/2012 Gastrointestinal No hemorrhoids 11/09/2012 Gastrointestinal No abdominal pain 11/09/2012 Gastrointestinal No constipation 11/09/2012 Gastrointestinal No diarrhea 11/09/2012 Gastrointestinal No gastroesophageal reflux 11/09/2012 Gastrointestinal No melena 11/09/2012 Gastrointestinal No nausea 11/09/2012 Gastrointestinal No vomiting 11/09/2012 Musculoskeletal stiffness 11/09/2012 Musculoskeletal No swelling 11/09/2012 Musculoskeletal No muscle weakness 11/09/2012 Musculoskeletal myalgias 11/09/2012 Musculoskeletal arthralgia(s) 11/09/2012 Musculoskeletal joint complaint 11/09/2012 Psychiatric No anxiety 11/09/2012 Psychiatric No depression 11/09/2012 Neurologic No dizziness 11/09/2012 Neurologic No headache 11/09/2012 Neurologic No neck pain 11/09/2012 Neurologic No syncope 11/09/2012 Dermatologic No rash 11/09/2012 Dermatologic No scar 11/09/2012 Physical Exam Exam Name System Name Item Name Status Result Effective Dates Notes Full Exam - General 1994 Constitutional general appearance Overall: well developed 01/03/2019 None Full Exam - General 1994 Constitutional general appearance Overall: in no acute distress 01/03/2019 None Full Exam - General 1994 Constitutional general appearance Overall: well nourished 01/03/2019 None Full Exam - General 1994 Eyes conjunctiva/eyelids Overall: conjunctiva clear 01/03/2019 None Full Exam - General 1994 Eyes conjunctiva/eyelids Overall: cornea clear 01/03/2019 None Full Exam - General 1994 Eyes conjunctiva/eyelids Overall: eyelids normal 01/03/2019 None Full Exam - General 1994 Ears/Nose/Throat lips/teeth/gingiva Overall: benign lips 01/03/2019 None Full Exam - General 1995 Ears/Nose/Throat oral cavity/pharynx/larynx Overall: oral mucosa clear 01/03/2019 None Full Exam - General 1995 Ears/Nose/Throat oral cavity/pharynx/larynx Overall: oropharyngeal mucosa clear 01/03/2019 None Full Exam - General 1994 Respiratory auscultation Overall: breath sounds clear bilaterally 01/03/2019 None Full Exam - General 1994 Respiratory respiratory effort/rhythm Overall: no retractions 01/03/2019 None Full Exam - General 1994 Respiratory respiratory effort/rhythm Overall: normal rate 01/03/2019 None Full Exam - General 1994 Cardiovascular auscultation of heart Overall: regular rate 01/03/2019 None Full Exam - General 1994 Cardiovascular auscultation of heart Overall: normal heart sounds 01/03/2019 None Full Exam - General 1994 Musculoskeletal head and neck Overall: head atraumatic 01/03/2019 None Full Exam - General 1994 Neurologic cranial nerves Overall: crainial nerves 2 - 12 grossly intact 01/03/2019 None Full Exam - General 1994 Psychiatric orientation/consciousness Overall: oriented to person, place and time 01/03/2019 None Full Exam - General 1994 Psychiatric mood and affect Overall: normal mood and affect 01/03/2019 None Full Exam - General 1994 Psychiatric appearance Overall: well-groomed, good eye contact 01/03/2019 None Full Exam - General 1994 Constitutional general appearance Overall: well developed 04/15/2018 None Full Exam - General 1994 Constitutional general appearance Overall: in no acute distress 04/15/2018 None Full Exam - General 1994 Constitutional general appearance Overall: well nourished 04/15/2018 None Full Exam - General 1994 Eyes conjunctiva/eyelids Overall: eyelids normal 04/15/2018 None Full Exam - General 1994 Eyes conjunctiva/eyelids Overall: cornea clear 04/15/2018 None Full Exam - General 1994 Eyes conjunctiva/eyelids Overall: conjunctiva clear 04/15/2018 None Full Exam [...] None Full Exam - General 1994 Eyes conjunctiva/eyelids Overall: eyelids normal 12/01/2017 None Full Exam - General 1994 Eyes conjunctiva/eyelids Overall: cornea clear 12/01/2017 None Full Exam - General 1994 Eyes conjunctiva/eyelids Overall: conjunctiva clear 12/01/2017 None Full Exam [...] ENT Ears/Nose/Throat otoscopic exam Left tympanic membrane: air-fluid level 10/06/2017 None Full Exam - ENT Ears/Nose/Throat otoscopic exam Right tympanic membrane: air-fluid level 10/06/2017 None Full Exam - ENT Ears/Nose/Throat nasal mucosa, septum, turbinates Drainage: clear 10/06/2017 None Full Exam - ENT Ears/Nose/Throat nasal mucosa, septum, turbinates Drainage: yellow 10/06/2017 None Full Exam - ENT Ears/Nose/Throat lips/teeth/gingiva Overall: benign lips 10/06/2017 None Full Exam [...] - ENT Respiratory inspection Overall: normal rate 10/06/2017 None Full Exam - ENT Respiratory auscultation [...] None Full Exam - General 1994 Eyes conjunctiva/eyelids Overall: conjunctiva clear 06/23/2017 None Full Exam - General 1994 Eyes conjunctiva/eyelids Overall: eyelids normal 06/23/2017 None Full Exam [...] None Full Exam - General 1994 Eyes conjunctiva/eyelids Overall: conjunctiva clear 04/14/2017 None Full Exam - General 1994 Eyes conjunctiva/eyelids Overall: eyelids normal 04/14/2017 None Full Exam [...] None Full Exam - General 1994 Eyes conjunctiva/eyelids Overall: conjunctiva clear 02/24/2017 None Full Exam - General 1994 Eyes conjunctiva/eyelids Overall: eyelids normal 02/24/2017 None Full Exam [...] None Full Exam - General 1994 Eyes conjunctiva/eyelids Overall: conjunctiva clear 10/31/2015 None Full Exam - General 1994 Eyes conjunctiva/eyelids Overall: eyelids normal 10/31/2015 None Full Exam - General 1994 Eyes conjunctiva/eyelids Overall: cornea clear 10/31/2015 None Full Exam [...] Cardiology Neurologic cranial nerves Overall: cranial nerves 1-12 intact 11/29/2013 None Full Exam - Cardiology [...] bilaterally 02/23/2013 None Full Exam - General 1995 Respiratory respiratory effort/rhythm Overall: no retractions 02/23/2013 [...] happy 01/12/2013 None Full Exam - General 1995 [...] - General 1994 Neck thyroid Overall: nontender 11/09/2012 None Full Exam - General 1994 Neck thyroid Overall: normal size 11/09/2012 None Full Exam - General 1994 [...] time 11/09/2012 None Full Exam - General 1995 Musculoskeletal lower extremity Inspection - thigh: normal appearance 11/09/2012 None Full Exam - General 1994 Musculoskeletal lower extremity Palpation - thigh: tenderness 11/09/2012 mildly tender over greater trochanteric region and with internal rotation of hip on left Procedures Procedure Codes Date THER/PROPH/DIAG INJ SC/IM CPT-4: 04406 10/06/2017 TRIAMCINOLONE ACET INJ NOS CPT-4: J3301 10/06/2017 THER/PROPH/DIAG INJ SC/IM CPT-4: 05802 10/31/2015 TRIAMCINOLONE ACET INJ NOS CPT-4: J3301 10/31/2015 ROUTINE VENIPUNCTURE CPT- 4: 16558 11/10/2013 PRESCRIP TRANSMIT VIA ERX SY CPT-4: G8553 02/23/2013 PRESCRIP TRANSMIT VIA ERX SY CPT-4: G8553 11/30/2012 PRESCRIP TRANSMIT VIA ERX SY CPT-4: G8553 11/09/2012 Vital Signs Date Vital 01/03/2019 Blood Pressure 1: 134/76 Code: 8480-6 BMI: 29.3 Code: 49502-8 Heart Rate 1: 58 bpm Height: 5'10" SpO2: 96% Weight: 204 lbs 04/15/2018 Blood Pressure 1: 150/88 Code: 8480-6 BMI: 28.1 Code: 21015-2 Heart Rate 1: 84 bpm Height: 5'10" SpO2: 98% Weight: 196 lbs 12/01/2017 Blood Pressure 1: 154/78 Code: 8480-6 BMI: 28.4 Code: 32113-0 Heart Rate 1: 87 bpm Height: 5'10" SpO2: 98% Weight: 198 lbs 10/06/2017 Blood Pressure 1: 136/74 Code: 8480-6 BMI: 38.0 Code: 05397-2 Heart Rate 1: 75 bpm Height: 5' SpO2: 95% Temperature: 36.8 (C) / 98.2 (F) Weight: 194 lbs 8 oz 06/23/2017 Blood Pressure 1: 152/82 Code: 8480-6 BMI: 28.3 Code: 40133-3 Heart Rate 1: 58 bpm Height: 5'10" SpO2: 96% Weight: 197 lbs 04/14/2017 Blood Pressure 1: 146/84 Code: 8480-6 BMI: 27.5 Code: 92121-0 Heart Rate 1: 69 bpm Height: 5'10" SpO2: 95% Weight: 192 lbs 02/24/2017 Blood Pressure 1: 146/60 Code: 8480-6 BMI: 27.4 Code: 35414-4 Heart Rate 1: 61 bpm Height: 5'10" SpO2: 97% Weight: 191 lbs 05/07/2016 Blood Pressure 1: 146/66 Code: 8480-6 BMI: 26.3 Code: 08378-0 Heart Rate 1: 69 bpm Height: 5'10" SpO2: 97% Weight: 183 lbs 03/02/2016 Blood Pressure 1: 190/108 Code: 8480-6 Blood Pressure 1: 170/100 Code: 8480-6 BMI: 26.5 Code: 75188-7 Heart Rate 1: 76 bpm Height: 5'10" SpO2: 98% Weight: 185 lbs 10/31/2015 Blood Pressure 1: 142/90 Code: 8480-6 Blood Pressure 1: 126/86 Code: 8480-6 BMI: 26.8 Code: 14955-9 Heart Rate 1: 99 bpm Height: 5'10" SpO2: 95% Temperature: 37.0 (C) / 98.6 (F) Weight: 187 lbs 01/25/2014 Blood Pressure 1: 180/90 Code: 8480-6 BMI: 26.3 Code: 52379-8 Heart Rate 1: 76 bpm Height: 5'10" Temperature: 37.4 (C) / 99.3 (F) Weight: 183 lbs 11/29/2013 Blood Pressure 1: 164/82 Code: 8480-6 Heart Rate 1: 80 bpm Temperature: 37.1 (C) / 98.7 (F) Weight: 187 lbs 11/10/2013 Blood Pressure 1: 156/94 Code: 8480-6 Heart Rate 1: 72 bpm Weight: 186 lbs 05/10/2013 Blood Pressure 1: 134/78 Code: 8480-6 BMI: 25.7 Code: 62513-4 Heart Rate 1: 84 bpm Height: 5'10" Weight: 179 lbs 02/23/2013 Blood Pressure 1: 138/90 Code: 8480-6 BMI: 27.0 Code: 78780-1 Heart Rate 1: 88 bpm Height: 5'10" Temperature: 37.0 (C) / 98.6 (F) Weight: 188 lbs 01/12/2013 Blood Pressure 1: 136/78 Code: 8480-6 BMI: 26.7 Code: 17408-5 Heart Rate 1: 96 bpm Height: 5'10" Weight: 186 lbs 11/30/2012 Blood Pressure 1: 170/90 Code: 8480-6 BMI: 26.8 Code: 03778-4 Heart Rate 1: 80 bpm Height: 5'10" Weight: 187 lbs 11/09/2012 Blood Pressure 1: 178/84 Code: 8480-6 BMI: 26.5 Code: 26547-7 Heart Rate 1: 86 bpm Height: 5'10" Respiratory Rate: 16 bpm Weight: 185 lbs Functional Status No Functional Status data History of Present Illness Symptom Name Status Result Effective Date Notes Location oral intake 01/03/2019 None Quality chronic 01/03/2019 None Hospital Follow Up _ Other: left sided [...] regular diet 12/01/2017 None cough Quality acute 10/06/2017 None cough Location in the throat 10/06/2017 None cough Quality dry 10/06/2017 None cough Quality intermittent 10/06/2017 None cough [...] None blood pressure followup Onset of Symptom 3- 4 weeks ago 03/02/2016 noticed increase in blood [...] pain Quality recurrent 05/10/2013 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 PATIENT, LEVEL III Diagnosis: Essential (primary) hypertension[ICD10: I10] Diagnosis: Other meterman (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[ICD10: Z79.899] Gayle Fajardo MD, [facility] CPT-4: 45023 01/03/2019 92715 EST. PATIENT, LEVEL III Diagnosis: Paresthesia of skin[ICD10: R20.2] Diagnosis: Cervicalgia[ICD10: M54.2] Diagnosis: Essential (primary) hypertension[ICD10: I10] Gayle Fajardo MD, [facility] CPT-4: 79286 04/15/2018 ([id number]) PER PM REEVAL EST PAT 65+ YR Diagnosis: Benign prostatic hyperplasia with lower urinary tract symptoms[ICD10: N40.1] Diagnosis: Essential (primary) hypertension[ICD10: I10] Gayle Fajardo MD, [facility] CPT-4: 01498 12/01/2017 91811 EST. PATIENT, LEVEL IV Diagnosis: Other acute sinusitis[ICD10: J01.80] Diagnosis: Other allergic rhinitis[ICD10: J30.89] Diagnosis: Other fpc (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[ICD10: Z79.899] Gayle Fajardo MD, [facility] CPT-4: 73299 10/06/2017 64752 EST. PATIENT, LEVEL IV Diagnosis: Gastro-esophageal reflux disease without esophagitis[ICD10: K21.9] Diagnosis: Pain in right elbow[ICD10: M25.521] Diagnosis: Other fpc (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[ICD10: Z79.899] Gayle Fajardo MD, [facility] CPT-4: 88952 06/23/2017 70500 EST. PATIENT, LEVEL IV Diagnosis: Other conditions associated with Lyme disease[ICD10: A69.29] Diagnosis: Other dorsalgia[ICD10: M54.89] Gayle Fajardo MD, [facility] CPT-4: 75671 04/14/2017 90237 EST. PATIENT, LEVEL IV Diagnosis: Pain in left elbow[ICD10: M25.522] Diagnosis: Pain in right elbow[ICD10: M25.521] Diagnosis: Pain in joints of left hand[ICD10: M25.542] Diagnosis: Pain in joints of right hand[ICD10: M25.541] Diagnosis: Other fatigue[ICD10: R53.83] Diagnosis: Other meterman (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[ICD10: Z79.899] Gayle Fajardo MD, [facility] CPT-4: 12285 02/24/2017 ([id number]) 89737 EST. PATIENT, LEVEL III Diagnosis: Essential (primary) hypertension[ICD10: I10] Jennifer Fajardo MD, [facility] CPT-4: 01427 05/07/2016 ([id number]) 55443 EST. PATIENT, LEVEL IV Diagnosis: Essential (primary) hypertension[ICD10: I10] Diagnosis: Impaired fasting glucose[ICD10: R73.01] Diagnosis: Other fpc (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[ICD10: Z79.899] Jennifer Fajardo MD, [facility] CPT-4: 89334 03/02/2016 ([id number]) 51348 EST. PATIENT, LEVEL IV Diagnosis: Essential (primary) hypertension[ICD10: I10] Diagnosis: Mixed hyperlipidemia[ICD10: E78.2] Diagnosis: Other fpc (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[ICD10: Z79.899] Diagnosis: Impaired fasting glucose[ICD10: R73.01] Diagnosis: Acute recurrent maxillary sinusitis[ICD10: J01.01] Jennifer Fajardo MD, [facility] CPT-4: 28346 10/31/2015 ([id number]) 01792 EST. PATIENT, LEVEL III Diagnosis: CELLULITIS[ICD9: 682.9] Mahnaz Fajardo MD, [facility] CPT-4: 28782 01/25/2014 ([id number]) 18392 EST. PATIENT, LEVEL III Diagnosis: Acute maxillary sinusitis[ICD9: 461.0] Diagnosis: Cough[ICD9: 786.2] Mahnaz Fajardo MD, [facility] CPT-4: 19265 11/29/2013 ([id number]) 00568 EST. PATIENT, LEVEL III Diagnosis: ESSENTIAL HYPERTENSION[SNOMED: 87800006] Diagnosis: Encounter for long-term (current) use of other high-risk medications[ICD9: V58.69] Jennifer Chris Fajardo MD, [facility] CPT-4: 35205 11/10/2013 ([id number]) 29626 EST. PATIENT, LEVEL IV Diagnosis: ESSENTIAL HYPERTENSION[SNOMED: 69290545] Diagnosis: HYPERLIPIDEMIA[ICD9: 272.4] Mahnaz Fajardo MD [facility] CPT-4: 56568 05/10/2013 ([id number]) 80624 EST. PATIENT, LEVEL III Diagnosis: Esophageal reflux[ICD9: 530.81] Diagnosis: Sore throat[ICD9: 462] Diagnosis: Allergic rhinitis[ICD9: 477.9] Mahnaz Fajardo MD [facility] CPT-4: 28378 02/23/2013 ([id number]) 92487 EST. PATIENT, LEVEL III Diagnosis: ESSENTIAL HYPERTENSION[SNOMED: 96412257] Diagnosis: HYPERLIPIDEMIA[ICD9: 272.4] Mahnaz Fajardo MD [facility] CPT-4: 37040 01/12/2013 ([id number]) 16086 EST. 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 Pt has been encouraged to exercise daily. The pt has been advised to call the office if there are any acute concerns about change in blood pressure readings at home. 01/03/2019 [facility]ment: [phone] [facility] ([facility] Complex 01/03/2019 Patient Education: Patient Medication Summary Completed 01/03/2019 Care Plan: X-RAY EXAM NECK SPINE 2-3 [facility]W [facility] : 34866-7 Pending 04/19/2018 Visit Plan: Left sided paresthesia, [...] readings as an outpatient and either fax, ryland l, or email the readings to the office next week for practitioner to review. The pt is to call for acute concerns. 04/15/2018 Appointment: [facility] [phone] [facility] (15 min) Moderate 04/15/2018 Patient Education: Patient Medication Summary Completed 04/15/2018 Referral: [facility] [phone] [facility] Referral Initiated 12/16/2017 Visit Plan: [...] Appointment: Gayle Morris WPtel: [phone] [facility] (30 min) Complex 12/01/2017 Patient Education: Patient Medication Summary Completed 12/01/2017 Care Plan: Referral Order SNOMED-CT : 511957057 Pending 12/01/2017 Visit Plan: Sinusitis - Pt [...] allergy spray. 10/06/2017 Appointment: Gay[facility] Morris [facility] [phone] [facility] ([facility] min) Complex 10/06/2017 Patient Education: Patient Medication Summary Completed 10/06/2017 Care Plan: Pt Approved 10/06/2017 Referral: Kobe Benjamin [address] [facility] Referral Initiated 07/06/2017 Visit Plan: Esophageal Reflux - the patient has been counseled against excessive intake of caffeine, spicy foods, peppermint, and cinnamon - all of which can exacerbate esophageal reflux. The patient is to take med ications as prescribed and call the office if [...] not improve. 06/23/2017 Appointment: Gayle Morris WPtel: [facility] [place] (30 min) Complex 06/23/2017 Patient Education: Patient Medication Summary Completed 06/23/2017 Care Plan: Referral Order SNOMED-CT : 136484666 Pending 06/23/2017 Visit Plan: Back pain, lyme [...] Pain Completed 04/14/2017 Appointment: Gayle Morris WPtel: [facility] [place] (30 min) Complex 04/13/2017 Visit Plan: Joint pain, back pain - will check labs - The pt is to use prn antiinflammatories to manage acute pain. The patient is to call the office if the pain is worsening or does not improve. 02/24/2017 Appointment: Gayle Morris WPtel: [facility] [place] (30 min) Complex 02/24/2017 Patient Education: Patient Medication Summary Completed 02/24/2017 Patient Education: Patient Medication Summary Completed 11/20/2016 Care Plan: Pt Pending 11/20/2016 Appointment: Jennifer Perez WPtel: [phone] [place] (30 min) Complex 11/05/2016 Visit Plan: Hypertension - well controlled - continue with current medications, continue with no added salt diet. Pt has been encouraged to exercise daily. The pt has been advised to call the office if there are any acute concerns about change in blood pressure readings at home. 05/07/2016 Appointment: Jennifer Perez WPtel: [facility] (30 min) Complex 05/07/2016 Patient Education: [...] Chronic Anticoagulant use - Pt has been co unseled about the anticoagulant, need for serial monitoring, and need for the pt to alert the physician as to any new bruising, or acute bleeding. Therapeutic goal for INR is between 2.0 and 3.5. 03/02/2016 Patient Education: Patient Medication Summary Completed 03/02/2016 Care Plan: Referral Order SNOMED-CT : 654184729 Pending 03/02/2016 Visit Plan: Hypertension - well [...] of pressure. 01/25/2014 Appointment: Mahnaz Fajardo WPtel: [address] [place], [place] [phone] Other 01/25/2014 Patient Education: Patient Medication Summary Completed 01/25/2014 Appointment: Mahnaz Fajardo WPtel: [address] [place], [place] [phone] [facility] 11/29/2013 Patient Education: Patient Medication Summary Completed [...] Coumadin-check PT/INR 11/10/2013 Appointment: Jennifer Perez WPtel: [phone] Follow up 11/10/2013 Patient Education: Patient Medication Summary Completed 11/10/2013 Patient Education: Hypertension Completed 11/10/2013 Appointment: Mahnaz Fajardo WPtel: [address] [place], [place] [phone] Follow up 11/08/2013 Visit Plan: Hypertension - [...] to medications. 05/10/2013 Appointment: [phone] [facility] Follow up 05/10/2013 Patient Education: Patient Medication Summary Completed 05/10/2013 Patient Education: Hypertension Completed 05/10/2013 Appointment: [facility] [phone] [facility] Sick 02/24/2013 Visit Plan: Esophageal Reflux - the patient has been counseled against excessive intake of caffiene, spicy foods, peppermint, and cinnamon - all of which can exacerbate esophageal reflux. The patient is to take med ications as prescribed and call the office if [...] month. 01/12/2013 Appointment: Mahnaz Fajardo WPtel: [phone] [facility] Follow up 01/12/2013 Patient Education: Patient Medication Summary Completed 01/12/2013 Patient Education: Hypertension Completed 01/12/2013 Appointment: Mahnaz Fajardo WPtel: [phone] [facility] Follow up 01/11/2013 Visit Plan: Nerve pain [...] to assure normal liver response to medications. Chinle red Krill oil twice daily 11/30/2012 Appointment: Mahnaz Fajardo WPtel: [phone] [facility] Follow up 11/30/2012 Patient Education: Patient Medication [...] however, has not had re-eval since the placem ent of the stent- pt to see Dr. Grayson - cardiothoracic surgeon - Nov 18 At 9 AM. Hip pain - pt to use tylenol for pain - Appt with Dr. Zuniga for hip pain - suspect arthritis. 11/09/2012 Appointment: Mahnaz Fajardo WPtel: [phone] [facility] New Patient 11/09/2012 Patient Education: Patient Medication Summary Completed 11/09/2012 Patient Education: Hypertension Completed 11/09/2012 Referral: Kobe Benjamin [address] [facility] Referral Initiated Referral: Fernando [facility]el[facility] [phone] [facility] [facility] Initiated Referral: Opal Reddy Referral Appointment Requested Instructions Comment . Cellulitis - continue with oral antibiotics as previously directed, return to clinic as previously directed, call for acute change in symptoms, worsening redness, warmth, discharge. Uncontrolled Htn - recommended pt to check blood pressure at home, call in with report of pressure. will refer to Dr. Benjamin for colonoscopy [...] in the nasal steroid allergy spray. . Sinusitis - Pt has acute infection [...] like to check a tick panel for Strawberry Spotted Fever - I will give you a script for the blood draw let me know where you get it done so we can look for results. I would like to start doxycycline - I can send augmentin for you to start, but the only treatment for Strawberry Spotted Fever is Doxycycline. Massage from [facility] [...] Hyperlipidemia - check lipids in one month. Chinle red Krill oil twice daily increase the [...] to assure normal liver response to medications. Chinle red Krill oil twice daily . Hypertension [...] improvement. Kenalog injection today in the office. . Hypertension - well controlled - continue with current medications, continue with no added salt diet. Pt has been encouraged to exercise daily. The pt has been advised to call the office if there are any acute concerns about change in blood pressure readings at home.
--- OUTSIDE RECORDS SUMMARY | 2019-02-13 11:59 | XMS REPORT | CCD ---
Author Author [facility] Organization [facility] Address [address] [place] [address] Phone Care Team Providers Care Upset Operator Name Role Phone PP Unavailable CCM Unavailable Summary Purpose Interface Exchange Insurance Providers Payer name Policy type / Coverage type Covered republican ID Effective Begin Date Effective End Date [employer] Medicare Part B [id number] 2016 Unknown [facility] Medicare Part B [id number] 2016 Unknown Family history Mother Diagnosis Age At Onset Stroke Unknown Father Diagnosis Age At Onset Hypertension Unknown Sister Diagnosis Age At Onset Hypertension Unknown Social History Social History Element Codes Description Effective Dates Marital status Unknown 11/09/[address]: 6004945 Former smoker quit 1988 11/09/2012 Allergies, Adverse Reactions, Alerts Substance Reaction Codes Entered Date Inactivated Date Status ASPIRIN (TARTRAZINE ONLY) hives Unknown 11/09/2012 No Inactive Date Active Past Medical History Illness Codes Condition Status Onset Date Resolved Date Other fatigue ICD-9: 780.79 ICD-10: R53.83 Active 02/24/2017 Unknown Other longterm (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 ICD-9: V58.69 ICD-10: Z79.899 Active 03/01/2016 Unknown Pain in joints of left hand ICD-9: 719.44 ICD-10: M25.542 Active 02/24/2017 Unknown Pain in joints of right hand ICD-9: 719.44 ICD-10: M25.541 Active 02/24/2017 Unknown Pain in left elbow ICD- 9: 719.42 ICD-10: M25.522 Active 02/24/2017 Unknown Pain in right elbow ICD- 9: 719.42 ICD-10: M25.521 Active 02/24/2017 Unknown Essential (primary) hypertension ICD-9: [...] Condition Codes Effective Dates Condition Status Other fatigue ICD-9: 780.79 ICD-10: R53.83 02/24/2017 Active Other terminal makeup operator (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 ICD-9: V58.69 ICD-10: Z79.899 03/01/2016 Active Pain in joints of left hand ICD-9: 719.44 ICD-10: M25.542 02/24/2017 Active Pain in joints of right hand ICD-9: 719.44 ICD-10: M25.541 02/24/2017 Active Pain in left elbow ICD- 9: 719.42 ICD-10: M25.522 02/24/2017 Active Pain in right elbow ICD- 9: 719.42 ICD-10: M25.521 02/24/2017 Active Essential (primary) hypertension ICD-9: 401.9 [...] Fill Instructions Flomax 0.4 mg capsule RxNorm: 556706 Take 2 capsules by mouth daily 03/31/2017 12/25/2017 Active - First Attempt Ref: [id number] lisinopril 20 mg tablet RxNorm: 909327 1 Tablet(s) PO BID 03/11/2017 03/05/2018 Active Voltaren 1 % topical gel RxNorm: 734679 1 Application TOP BID as needed 03/09/2017 No Stop Date Active lisinopril 20 mg tablet RxNorm: 222641 2 Tablet(s) PO BID 02/26/2017 03/10/2017 Inactive cyclobenzaprine 5 mg tablet RxNorm: 269658 1 Tablet(s) PO TID as needed muscle spasms 02/24/2017 02/28/2017 Inactive warfarin 3 mg tablet RxNorm: 153716 1 Tablet(s) PO daily 11/23/2016 No Stop Date Active lisinopril 20 mg tablet RxNorm: 802983 Take 2 tablets by mouth twice a day 09/22/2016 02/25/2017 Inactive - Ref: [id number] lisinopril 20 mg tablet RxNorm: 450042 1 Tablet(s) PO BID 05/07/2016 02/25/2017 Inactive First Attempt Coreg 25 mg tablet RxNorm: 969259 1 Tablet(s) PO BID 05/07/2016 02/23/[address] Reddy lisinopril 20 mg tablet RxNorm: 285341 1 Tablet(s) PO daily Take 2 tablets by mouth bid 05/07/2016 05/06/2016 Inactive First Attempt Flomax 0.4 mg capsule RxNorm: 354819 Take 2 capsules by mouth daily 03/15/2016 03/30/2017 Inactive - First Attempt lisinopril 20 mg tablet RxNorm: 787523 2 Tablet(s) PO BID Take 2 tablets by mouth bid 03/04/2016 05/06/2016 Inactive First Attempt lisinopril 20 mg tablet RxNorm: 539049 1 Tablet(s) PO BID Take 2 tablets by mouth daily 03/02/2016 03/03/2016 Inactive First Attempt Phenergan with Codeine Syrup RxNorm: 5 Milliliter(s) PO Q6 PRN 10/31/2015 No Stop Date Active Kenalog 40 mg/mL suspension for injection RxNorm: 2510864 Milliliter(s) Inj 10/31/2015 10/31/2015 Inactive warfarin 3 mg tablet RxNorm: 858500 Tablet(s) Take 1 tablet by mouth on tues,wed,thur,sat and sun and 1 and 1/2 tablets by mouth on mon and wed10/31/2015 07/23/2016 Inactive Zithromax Z-[place] 250 mg tablet RxNorm: 221383 1 Tablet(s) PO UD 10/31/2015 11/04/2015 Inactive zpack Coreg 3.125 mg tablet RxNorm: 659379 1 Tablet(s) PO BID 06/19/2015 05/06/2016 Inactive warfarin 3 mg tablet RxNorm: 071635 Take 1 tablet by mouth on tues,wed,thur,sat and sun and 1 and 1/2 tablets by mouth on mon and wed06/06/2015 06/05/2015 Inactive 2nd Attempt warfarin 3 mg tablet RxNorm: 173165 Tablet(s) Take 1 tablet by mouth on ,wed,,sat and sun and 1 and 1/2 tablets by mouth on wed and wed06/06/2015 10/30/2015 Inactive 2nd Attempt Flomax 0.4 mg capsule RxNorm: 817325 Take 2 capsules by mouth daily 04/29/2015 01/23/2016 Inactive First Attempt lisinopril 10 mg tablet RxNorm: 074739 Take 2 tablets by mouth daily 04/29/2015 01/23/2016 Inactive First Attempt warfarin 3 mg tablet RxNorm: 582533 one wed sat sun 4.5mg wednesday Tablet(s) PO daily 07/25/2014 06/05/2015 Inactive Flomax 0.4 mg capsule RxNorm: 126486 2 Capsule(s) PO daily 07/25/2014 04/28/2015 Inactive lisinopril 10 mg tablet RxNorm: 143288 2 Tablet(s) PO daily 07/25/2014 04/28/2015 Inactive Coreg 3.125 mg tablet RxNorm: 218996 1 Tablet(s) PO BID 07/25/2014 06/18/2015 Inactive cephalexin 500 mg capsule RxNorm: 389662 1 Capsule(s) PO QID 11/29/2013 10/30/2015 Inactive lisinopril 20 mg tablet RxNorm: 516244 1 Tablet(s) PO BID 11/10/2013 03/09/2014 Inactive Flomax 0.4 mg capsule RxNorm: 144647 2 Capsule(s) PO daily 10/12/2013 07/24/2014 Inactive Coreg 3.125 mg tablet RxNorm: 883309 1 Tablet(s) PO BID 10/12/2013 07/24/2014 Inactive lisinopril 10 mg tablet RxNorm: 014007 2 Tablet(s) PO daily 10/12/2013 11/09/2013 Inactive warfarin 3 mg tablet RxNorm: 832542 one wed sat sun 4.5mg wednesday Tablet(s) PO daily 10/12/2013 07/24/2014 Inactive o Flomax 0.4 mg capsule RxNorm: 386005 2 Capsule(s) PO daily 06/05/2013 10/11/2013 Inactive Zetia 10 mg tablet RxNorm: 491054 1 Tablet(s) PO daily 05/16/2013 05/15/2013 Inactive Zetia 10 mg tablet RxNorm: 851630 1 Tablet(s) PO daily 05/16/2013 09/12/2013 Inactive Carafate 100 mg/mL Oral Susp RxNorm: 797015 10 Milliliter(s) PO QID 05/10/2013 10/30/2015 Inactive dispense one month supply Flomax 0.4 mg capsule RxNorm: 265220 2 Capsule(s) PO daily 05/10/2013 06/04/2013 Inactive Carafate 100 mg/mL Oral Susp RxNorm: 239197 10 Milliliter(s) PO QID 02/23/2013 04/23/2013 Inactive dispense one month supply gabapentin 100 mg capsule RxNorm: 983208 1 Capsule(s) PO daily one at bedtime and one up to three times daily as needed for nerve pain in leg 01/16/2013 05/09/2013 Inactive gabapentin 100 mg capsule RxNorm: 339931 1 Capsule(s) PO daily one at bedtime and one up to three times daily as needed for nerve pain in leg 01/12/2013 01/15/2013 Inactive warfarin 3 mg tablet RxNorm: 818578 Tablet(s) PO 12/05/2012 10/11/2013 Inactive one tue thur sat4.5 mg mon frid lisinopril 10 mg tablet RxNorm: 659824 2 Tablet(s) PO daily 11/30/2012 06/27/2013 Inactive gabapentin 100 mg capsule RxNorm: 383620 1 Capsule(s) PO Q8 PRN one at bedtime and one up to three times daily as needed for nerve pain in leg 11/30/2012 01/11/2013 Inactive Coreg 3.125 mg tablet RxNorm: 070274 1 Tablet(s) PO BID 11/09/2012 01/07/2013 Inactive lisinopril 10 mg tablet RxNorm: 454699 1.5 Tablet(s) PO daily 11/09/2012 11/29/2012 Inactive Co Q-10 oral RxNorm: 04031 oral No Start Date Active Coreg 12.5 mg tablet RxNorm: 279929 1 Tablet(s) PO BID No Start Date Active lisinopril 20 mg tablet RxNorm: 506730 1 Tablet(s) PO BID No Start Date Active Voltaren 1 % topical gel RxNorm: 231432 1 Application TOP BID as needed No Start Date 03/08/2017 Inactive warfarin 3 mg tablet RxNorm: 495000 Tablet(s) PO No Start Date 12/04/2012 Inactive mercedes brooks sat4.5 mg mon frid Flomax 0.4 mg capsule RxNorm: 666537 1 Capsule(s) PO daily No Start Date 05/09/2013 Inactive niacin 500 mg tablet RxNorm: 424398 1 Tablet(s) PO daily No Start Date 03/01/2016 Inactive Medication Administered Medication Codes Instructions Start Date Status Kenalog 40 mg/mL suspension for injection RxNorm: 8167840 Milliliter 10/31/2015 No longer Active Immunizations No Immunization data Assessments Condition Codes Effective Dates Pain in right elbow ICD-10: M25.521 ICD-9: 719.42 02/24/2017 Other fatigue ICD-10: R53.83 ICD-9: 780.79 02/24/2017 Pain in joints of left hand ICD-10: M25.542 ICD-9: 719.44 02/24/2017 Pain in left elbow ICD-10: M25.522 ICD-9: 719.42 02/24/2017 Pain in joints of right hand ICD-10: M25.541 ICD-9: 719.44 02/24/2017 Other longterm (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 ICD-10: Z79.899 ICD-9: V58.69 02/24/2017 Essential (primary) hypertension ICD-10: I10 ICD-9: 401.9 05/07/2016 Impaired fasting glucose ICD-10: R73.01 ICD-9: 790.21 03/02/2016 Acute recurrent maxillary sinusitis ICD-10: J01.01 ICD-9: 461.0 10/31/2015 Mixed hyperlipidemia ICD-10: E78.2 ICD-9: 272.4 10/31/2015 CELLULITIS ICD-9: 682.9 01/25/2014 Acute maxillary sinusitis ICD-9: 461.0 11/29/2013 Cough ICD-9: 786.2 11/29/2013 Encounter for long-term (current) use of other high-risk medications ICD-9: V58.69 11/10/2013 ESSENTIAL HYPERTENSION SNOMED: 66003191 ICD-9: 401.9 11/10/2013 HYPERLIPIDEMIA ICD-9: 272.4 05/10/2013 Allergic rhinitis ICD-9: 477.9 02/23/2013 Sore throat ICD-9: 462 02/23/2013 Esophageal reflux ICD-9: 530.81 02/23/2013 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 11/30/2012 Renal artery stenosis ICD-9: 440.1 11/09/2012 Hip pain ICD-9: 719.45 11/09/2012 Reason For Visit Reason For Visit Effective Dates Notes forearm pain 02/24/2017 ribs blood pressure followup 05/07/2016 blood pressure followup 03/02/2016 fever 10/31/2015 skin lesion 01/25/2014 cough 11/29/2013 blood pressure followup 11/10/2013 hypertension 05/10/2013 sore throat 02/23/2013 hypertension 01/12/2013 hypertension 11/30/2012 hypertension 11/09/2012 Results Observation Observation Code Item Item Code Result Date Comp Metabolic Hkv809 NA 139 mEq/L 02/24/2017 Comp Metabolic Ygo154 K 3.9 mEq/L 02/24/2017 Comp Metabolic Ala587 CL 105 mEq/L 02/24/2017 Comp Metabolic Dmt132 CO2 27.0 mEq/L 02/24/2017 Comp Metabolic Ehn574 ANION GAP 11 02/24/2017 Comp Metabolic Oka531 GLUCOSE 93 mg/dL 02/24/2017 Comp Metabolic Sqp980 Creat 1.1 mg/dL 02/24/2017 Comp Metabolic Qgm176 eGFR 73 ml/min/1.73m2 02/24/2017 Comp Metabolic Bcc925 BUN 14 mg/dL 02/24/2017 Comp Metabolic Swb412 B/C Ratio 13.1 Ratio 02/24/2017 Comp Metabolic Mcc240 CALCIUM 8.4 mg/dL 02/24/2017 Comp Metabolic Rud966 ALK PHOS 89 U/L 02/24/2017 Comp Metabolic Xlr785 AST(SGOT) 18 U/L 02/24/2017 Comp Metabolic Fzg621 ALT(SGPT) 21 U/L 02/24/2017 Comp Metabolic Cwg849 BILI T 0.5 mg/dL 02/24/2017 Comp Metabolic Tbx921 ALBUMIN 3.8 g/dL 02/24/2017 Comp Metabolic Kei591 TPRO 6.5 g/dL 02/24/2017 Comp Metabolic Uhb822 GLOB 2.7 g/dL 02/24/2017 Comp Metabolic Eio139 A/G Ratio 1.4 Ratio 02/24/2017 Comp Metabolic Ofv491 Osmo 278 mOsmo 02/24/2017 Pt Okc9570 PT 31.7 seconds 02/24/2017 Pt Iqx1165 INR 3.3 02/24/2017 Pt Mmt3921 Low Intensity - 1.5-2.0 02/24/2017 Pt Qfy8006 Mod intensity - 2.0-3.0 02/24/2017 Pt Imd1483 Hi intensity - 3.0-4.0 02/24/2017 Cbc With [...] 29.6 pg 02/24/2017 Cbc With Differential Ord2 [place]% 9.7 % 02/24/2017 Cbc With Differential Ord2 [...] 2.62 K/ul 02/24/2017 Cbc With Differential Ord2 [place] ABS# 0.8 K/ul 02/24/2017 Cbc With Differential Ord2 Eos ABS# 0.2 K/ul 02/24/2017 Cbc With Differential Ord2 Baso ABS# 0.1 K/ul 02/24/2017 Sed Rate Ord21 ESR 25 mm/hr 02/24/2017 Tsh Ord6 hTSH II 0.86 uIU/mL 02/24/2017 C-Reactive Protein Qnt Crqnt CRP 0.2 mg/dl 02/24/2017 Pt Fub3777 PT 22.4 seconds 12/28/2016 Pt Tff3618 INR 2.1 12/28/2016 Pt Ien5599 Low Intensity - 1.5-2.0 12/28/2016 Pt Jls9704 Mod intensity - 2.0-3.0 12/28/2016 Pt Qvv7487 Hi intensity - 3.0-4.0 12/28/2016 Pt Mty0721 PT 30.2 seconds 11/26/2016 Pt Neo8452 INR 3.1 11/26/2016 Pt Yib7191 Low Intensity - 1.5-2.0 11/26/2016 Pt Isa5953 Mod intensity - 2.0-3.0 11/26/2016 Pt Van1378 Hi intensity - 3.0-4.0 11/26/2016 Pt Nae7854 PT 34.3 seconds 11/20/2016 Pt Wmx5048 INR 3.7 11/20/2016 Pt Vcx6528 Low Intensity - 1.5-2.0 11/20/2016 Pt Mzy9832 Mod intensity - 2.0-3.0 11/20/2016 Pt Trc1064 Hi intensity - 3.0-4.0 11/20/2016 Pt Ehm1279 PT 29.0 seconds 07/14/2016 Pt Rlb8684 INR 2.9 07/14/2016 Pt Zws7439 Low Intensity - 1.5-2.0 07/14/2016 Pt Cyk6489 Mod intensity - 2.0-3.0 07/14/2016 Pt Cty6570 Hi intensity - 3.0-4.0 07/14/2016 Lipid Ord30 CHOL 236 mg/dL 07/14/2016 Lipid Ord30 HDL 36.0 mg/dl 07/14/2016 Lipid Ord30 TRIG 406 mg/dL 07/14/2016 Lipid Ord30 LDL Unable to calculate Due to elevated triglycerides mg/dL 07/14/2016 Lipid Ord30 C/HDL 6.6 Ratio 07/14/2016 Pt Euv1617 PT 30.0 seconds 03/02/2016 Pt Ozo4269 INR 3.1 03/02/2016 Pt Bmw1006 Low Intensity - 1.5-2.0 03/02/2016 Pt Zqz4846 Mod intensity - 2.0-3.0 03/02/2016 Pt Yhb7325 Hi intensity - 3.0-4.0 03/02/2016 Tsh Ord6 hTSH II 0.68 uIU/mL 03/02/2016 Comp Metabolic Ohh588 NA 140 mEq/L 03/02/2016 Comp Metabolic Iwx739 K 4.1 mEq/L 03/02/2016 Comp Metabolic Zks334 CL 105 mEq/L 03/02/2016 Comp Metabolic Xrt114 CO2 29.0 mEq/L 03/02/2016 Comp Metabolic Ptl398 ANION GAP 10 03/02/2016 Comp Metabolic Kjy050 GLUCOSE 104 mg/dL 03/02/2016 Comp Metabolic Ixg267 Creat 1.0 mg/dL 03/02/2016 Comp Metabolic Zru984 eGFR 77 ml/min/1.73m2 03/02/2016 Comp Metabolic Qws247 BUN 15 mg/dL 03/02/2016 Comp Metabolic Fci068 B/C Ratio 14.7 Ratio 03/02/2016 Comp Metabolic Dcf779 CALCIUM 8.9 mg/dL 03/02/2016 Comp Metabolic Qpc071 ALK PHOS 84 U/L 03/02/2016 Comp Metabolic Raa940 AST(SGOT) 16 U/L 03/02/2016 Comp Metabolic Aii298 ALT(SGPT) 17 U/L 03/02/2016 Comp Metabolic Osy977 BILI T 0.5 mg/dL 03/02/2016 Comp Metabolic Blv529 ALBUMIN 4.0 g/dL 03/02/2016 Comp Metabolic Qpa705 TPRO 6.6 g/dL 03/02/2016 Comp Metabolic Ime494 GLOB 2.6 g/dL 03/02/2016 Comp Metabolic Dle870 A/G Ratio 1.5 Ratio 03/02/2016 Comp Metabolic Twv425 Osmo 281 mOsmo 03/02/2016 Cbc With Differential Ord2 WBC 8.05 K/ul 03/02/2016 Cbc With Differential Ord2 RBC 5.16 M/ul 03/02/2016 Cbc With Differential Ord2 HGB 15.1 g/dl 03/02/2016 Cbc With Differential Ord2 HCT 44.4 % 03/02/2016 Cbc With Differential Ord2 Neut% 60.4 % 03/02/2016 Cbc With Differential Ord2 Lymph% 28.4 % 03/02/2016 Cbc With Differential Ord2 MCV 86.0 fl 03/02/2016 Cbc With Differential Ord2 [place]% 8.1 % 03/02/2016 Cbc With Differential Ord2 [...] 2.29 K/ul 03/02/2016 Cbc With Differential Ord2 [place] ABS# 0.7 K/ul 03/02/2016 Cbc With Differential Ord2 Eos ABS# 0.2 K/ul 03/02/2016 Cbc With Differential Ord2 Baso ABS# 0.1 K/ul 03/02/2016 %Hba1C Ltr435 % HbA1c 45855- 6 6.0 % 03/02/2016 %Hba1C Qkc628 Gluc Ave 126 mg/dL 03/02/2016 Tsh Ord6 hTSH II 0.88 uIU/mL 10/31/2015 %Hba1C Vnn362 % HbA1c 78669- 6 6.1 % 10/31/2015 %Hba1C Auc680 Gluc Ave 128 mg/dL 10/31/2015 Comp Metabolic Idr597 NA 135 mEq/L 10/31/2015 Comp Metabolic Iev727 K 4.2 mEq/L 10/31/2015 Comp Metabolic Maj616 CL 99 mEq/L 10/31/2015 Comp Metabolic Abn971 CO2 28.0 mEq/L 10/31/2015 Comp Metabolic Skr407 ANION GAP 12 10/31/2015 Comp Metabolic Frp753 GLUCOSE 107 mg/dL 10/31/2015 Comp Metabolic Nsf643 Creat 1.2 mg/dL 10/31/2015 Comp Metabolic Wes294 eGFR 63 ml/min/1.73m2 10/31/2015 Comp Metabolic Pcb432 BUN 12 mg/dL 10/31/2015 Comp Metabolic Nje795 B/C Ratio 9.9 Ratio 10/31/2015 Comp Metabolic Bjy538 CALCIUM 8.4 mg/dL 10/31/2015 Comp Metabolic Tae955 ALK PHOS 134 U/L 10/31/2015 Comp Metabolic Vmf395 AST(SGOT) 20 U/L 10/31/2015 Comp Metabolic Aqa791 ALT(SGPT) 16 U/L 10/31/2015 Comp Metabolic Esz778 BILI T 0.4 mg/dL 10/31/2015 Comp Metabolic Urm288 ALBUMIN 4.2 g/dL 10/31/2015 Comp Metabolic Tuh834 TPRO 7.2 g/dL 10/31/2015 Comp Metabolic Hvg689 GLOB 3.1 g/dL 10/31/2015 Comp Metabolic Bty347 A/G Ratio 1.4 Ratio 10/31/2015 Comp Metabolic Thr816 Osmo 270 mOsmo 10/31/2015 Cbc With Differential Ord2 WBC 5.13 K/ul [...] 28.8 pg 10/31/2015 Cbc With Differential Ord2 [place]% 12.7 % 10/31/2015 Cbc With Differential Ord2 MCHC 34.0 pg 10/31/2015 Cbc With Differential Ord2 Eos% 1.4 % 10/31/2015 Cbc With Differential Ord2 Baso% 0.6 % 10/31/2015 Cbc With Differential Ord2 PLT 222 K/ul 10/31/2015 Cbc With Differential Ord2 Neut ABS# 3.07 K/ul 10/31/2015 Cbc With Differential Ord2 RDW 14.4 % 10/31/2015 Cbc With Differential Ord2 Lymph ABS# 1.31 K/ul 10/31/2015 Cbc With Differential Ord2 [place] ABS# 0.7 K/ul 10/31/2015 Cbc With Differential Ord2 Eos ABS# 0.1 K/ul 10/31/2015 Cbc With Differential Ord2 Baso ABS# 0.0 K/ul 10/31/2015 Cbc With Differential Ord2 New Analyzer Notice Please note new ref ranges starting 10-09-2015 due to implemntation of new five part differential hematolgy analyzer. 10/31/2015 Pt Iqv1631 PT 26.4 seconds 10/31/2015 Pt Abn9439 INR 2.5 10/31/2015 Pt Lgd7878 Low Intensity - 1.5-2.0 10/31/2015 Pt Hjy7416 Mod intensity - 2.0-3.0 10/31/2015 Pt Irf4013 Hi intensity - 3.0-4.0 10/31/2015 Total Psa Ord10 PSA 2.66 ng/mL 10/31/2015 Lipid Ord30 CHOL 184 mg/dL 10/31/2015 Lipid Ord30 HDL 29.0 mg/dl 10/31/2015 Lipid Ord30 TRIG 283 mg/dL 10/31/2015 Lipid Ord30 LDL 98 mg/dL 10/31/2015 Lipid Ord30 C/HDL 6.3 Ratio 10/31/2015 TSH 6192013 TSH 0.819 uIU/ML 11/10/2013 CHEM 14 5676661 AST 17 U/L 11/10/2013 CHEM 14 6789602 ALT 17 IU/L 11/10/2013 CHEM 14 3444915 BUN 15 MG/DL 11/10/2013 CHEM 14 6931532 ALBUMIN 4.3 GM/DL 11/10/2013 CHEM 14 1176046 CHLORIDE 103 MMOL/L 11/10/2013 CHEM 14 0934583 BILI TOT 0.6 MG/DL 11/10/2013 CHEM 14 0828362 ALK PHOS 104 U/L 11/10/2013 CHEM 14 4642044 SODIUM 137 MMOL/L 11/10/2013 CHEM 14 9238833 CREATININE 1.08 MG/DL 11/10/2013 CHEM 14 9394498 CALCIUM 8.9 MG/DL 11/10/2013 CHEM 14 8992079 POTASSIUM 4.0 MMOL/L 11/10/2013 CHEM 14 8646699 PROT TOT 7.0 GM/DL 11/10/2013 CHEM 14 0497315 GLUCOSE 84 MG/DL 11/10/2013 CHEM 14 1255514 BICARB 28 MMOL/L 11/10/2013 CHEM 14 4647301 ANION GAP 6 MEQ/L 11/10/2013 CBC 4907743 WBC 8.4 10e9/L 11/10/2013 CBC 6288460 RBC 5.24 10e12/L 11/10/2013 CBC 5584162 HGB 15.4 g/dL 11/10/2013 CBC 2893978 HCT DET 43.8 % 11/10/2013 CBC 3093738 MCV 83.6 fL 11/10/2013 CBC 0293392 MCH 29.4 pg 11/10/2013 CBC 6764799 MCHC 35.2 g/dL 11/10/2013 CBC 7460061 PLT 250 10e9/L 11/10/2013 CBC 0711548 MPV 11.1 fL 11/10/2013 CBC 3826806 OANH % 58.1 % 11/10/2013 CBC 3342028 LY % 28.5 % 11/10/2013 CBC 1534465 MON % 10.2 % 11/10/2013 CBC 5687980 EOS % 2.1 % 11/10/2013 CBC 3431347 BASO % 1.1 % 11/10/2013 CBC 8261667 RDW 13.3 % 11/10/2013 CBC 0371346 ABS OANH 4.88 10e9/L 11/10/2013 CBC 6732489 ABS LYMPH 2.39 10e9/L 11/10/2013 CBC 6306122 ABS MONO 0.86 10e9/L 11/10/2013 CBC 1102520 ABS EOS 0.18 10e9/L 11/10/2013 CBC 7555022 ABS BASO 0.09 10e9/L 11/10/2013 CBC 5460597 RDW-SD 40.7 fL 11/10/2013 GFR CALC 7425657 GFR AA >60 ML/MIN 11/10/2013 GFR CALC 4262491 GFR NON-AA >60 ML/MIN 11/10/2013 PT/MC 9752320 PRO TIME 24.5 SEC 11/10/2013 PT/MC 1241564 INR MCMC 2.3 11/10/2013 Review of Systems System Result Effective Dates Constitutional No recent illness 02/24/2017 Constitutional No [...] Procedure Codes Date THER/PROPH/DIAG INJ SC/IM CPT-4: [id number] 10/31/2015 TRIAMCINOLONE ACET INJ NOS CPT-4: [id number] 10/31/2015 ROUTINE VENIPUNCTURE CPT-4: 05967Yfztzcj 11/10/2013 PRESCRIP TRANSMIT VIA ERX SY CPT-4: T2091Lkndtnd 02/23/2013 PRESCRIP TRANSMIT VIA ERX SY CPT-4: N1187Yzdjcii 11/30/2012 PRESCRIP TRANSMIT VIA ERX SY CPT-4: Z6418Qjvmfwx 11/09/2012 Vital Signs Date Vital 02/24/2017 Blood Pressure 1: 146/60 Code: 8480-6 BMI: 27.4 Code: 89294-1 Heart Rate 1: 61 bpm Height: 5'10" SpO2: 97% Weight: 191 lbs 05/07/2016 Blood Pressure 1: 146/66 Code: 8480-6 BMI: 26.3 Code: 64740-7 Heart Rate 1: 69 bpm Height: 5'10" SpO2: 97% Weight: 183 lbs 03/02/2016 Blood Pressure 1: 190/108 Code: 8480-6 Blood Pressure 1: 170/100 Code: 8480-6 BMI: 26.5 Code: 42575-3 Heart Rate 1: 76 bpm Height: 5'10" SpO2: 98% Weight: 185 lbs 10/31/2015 Blood Pressure 1: 126/86 Code: 8480-6 Blood Pressure 1: 142/90 Code: 8480-6 BMI: 26.8 Code: 92916-2 Heart Rate 1: 99 bpm Height: 5'10" SpO2: 95% Temperature: 37.0 (C) / 98.6 (F) Weight: 187 lbs 01/25/2014 Blood Pressure 1: 180/90 Code: 8480-6 BMI: 26.3 Code: 13886-1 Heart Rate 1: 76 bpm Height: 5'10" Temperature: 37.4 (C) / 99.3 (F) Weight: 183 lbs 11/29/2013 Blood Pressure 1: 164/82 Code: 8480-6 Heart Rate 1: 80 bpm Temperature: 37.1 (C) / 98.7 (F) Weight: 187 lbs 11/10/2013 Blood Pressure 1: 156/94 Code: 8480-6 Heart Rate 1: 72 bpm Weight: 186 lbs 05/10/2013 Blood Pressure 1: 134/78 Code: 8480-6 BMI: 25.7 Code: 74754-2 Heart Rate 1: 84 bpm Height: 5'10" Weight: 179 lbs 02/23/2013 Blood Pressure 1: 138/90 Code: 8480-6 BMI: 27.0 Code: 92245-3 Heart Rate 1: 88 bpm Height: 5'10" Temperature: 37.0 (C) / 98.6 (F) Weight: 188 lbs 01/12/2013 Blood Pressure 1: 136/78 Code: 8480-6 BMI: 26.7 Code: 97167-0 Heart Rate 1: 96 bpm Height: 5'10" Weight: 186 lbs 11/30/2012 Blood Pressure 1: 170/90 Code: 8480-6 BMI: 26.8 Code: 16987-5 Heart Rate 1: 80 bpm Height: 5'10" Weight: 187 lbs 11/09/2012 Blood Pressure 1: 178/84 Code: 8480-6 BMI: 26.5 Code: 36365-7 Heart Rate 1: 86 bpm Height: 5'10" Respiratory Rate: 16 bpm Weight: 185 lbs Functional Status No Functional Status data History of Present Illness Symptom Name Status Result Effective Date Notes forearm pain Exacerbating Factors activity 02/24/2017 None [...] pain Quality recurrent 05/10/2013 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 PATIENT, LEVEL IV Diagnosis: Pain in left elbow[ICD10: M25.522] Diagnosis: Pain in right elbow[ICD10: M25.521] Diagnosis: Pain in joints of left hand[ICD10: M25.542] Diagnosis: Pain in joints of right hand[ICD10: M25.541] Diagnosis: Other fatigue[ICD10: R53.83] Diagnosis: Other longterm (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[ICD10: Z79.899] Gayle Fajardo MD, [facility] CPT-4: 96088 02/24/2017 ([id number]) [id number] EST. PATIENT, LEVEL III Diagnosis: Essential (primary) hypertension[ICD10: I10] Jennifer Fajardo MD, [facility] CPT-4: 36150 05/07/2016 ([id number]) 70284 EST. PATIENT, LEVEL IV Diagnosis: Essential (primary) hypertension[ICD10: I10] Diagnosis: Impaired fasting glucose[ICD10: R73.01] Diagnosis: Other terminal makeup operator (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[ICD10: Z79.899] Jennifer Fajardo MD, [facility] CPT-4: 38818 03/02/2016 ([id number]) 49977 EST. PATIENT, LEVEL IV Diagnosis: Essential (primary) hypertension[ICD10: I10] Diagnosis: Mixed hyperlipidemia[ICD10: E78.2] Diagnosis: Other longterm (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[ICD10: Z79.899] Diagnosis: Impaired fasting glucose[ICD10: R73.01] Diagnosis: Acute recurrent maxillary sinusitis[ICD10: J01.01] Jennifer Fajardo MD [facility] CPT-4: 12177 10/31/2015 ([id number]) 54007 EST. PATIENT, LEVEL III Diagnosis: CELLULITIS[ICD9: 682.9] Mahnaz Fajardo MD [facility] CPT-4: 15568 01/25/2014 ([id number]) 62460 EST. PATIENT, LEVEL III Diagnosis: Acute maxillary sinusitis[ICD9: 461.0] Diagnosis: Cough[ICD9: 786.2] Mahnaz Fajardo MD [facility] CPT-4: 84747 11/29/2013 ([id number]) 33926 EST. PATIENT, LEVEL III Diagnosis: ESSENTIAL HYPERTENSION[SNOMED: 66015601] Diagnosis: Encounter for long-term (current) use of other high-risk medications[ICD9: V58.69] Jennifer Fajardo MD [facility] CPT-4: 47951 11/10/2013 ([id number]) 24485 EST. PATIENT, LEVEL IV Diagnosis: ESSENTIAL HYPERTENSION[SNOMED: 78759708] Diagnosis: HYPERLIPIDEMIA[ICD9: 272.4] Mahnaz Fajardo MD [facility] CPT-4: 11981 05/10/2013 ([id number]) 54403 EST. PATIENT, LEVEL III Diagnosis: Esophageal reflux[ICD9: 530.81] Diagnosis: Sore throat[ICD9: 462] Diagnosis: Allergic rhinitis[ICD9: 477.9] Mahnaz Fajardo MD [facility] CPT-4: 00295 02/23/2013 ([id number]) 40192 EST. PATIENT, LEVEL III Diagnosis: ESSENTIAL HYPERTENSION[SNOMED: 27506015] Diagnosis: HYPERLIPIDEMIA[ICD9: 272.4] Mahnaz Fajardo MD [facility] CPT-4: 81627 01/12/2013 ([id number]) 20442 EST. 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 The patient is to call the office if the pain is worsening or does not improve. 02/24/2017 Appointment: Gayle Morris WPtel: [facility] [address] (30 min) Complex 02/24/2017 Patient Education: Patient Medication Summary Completed 02/24/2017 Patient Education: Patient Medication Summary Completed 11/20/2016 Care Plan: Pt Pending 11/20/2016 Appointment: Jennifer Perez WPtel: [facility] [phone] (30 min) Complex 11/05/2016 Visit Plan: Hypertension - well controlled - continue with current medications, continue with no added salt diet. Pt has been encouraged to exercise daily.The pt has been advised to call the office if there are any acute concerns about change in blood pressure readings at home. 05/07/2016 Appointment: Jennifer Perez WPtel: [facility] [phone] (30 min) Complex 05/07/2016 Patient Education: Patient [...] the office next week for practitioner to review.The pt is to call for acute concerns.Refer to Dr Reddy Elevated glucose- check Hgb A1C Chronic Anticoagulant use - Pt has been counseled about the anticoagulant, need for serial monitoring, and need for the pt to alert the physician as to any new bruising, or acute bleeding. Therapeutic goal for INR is between 2.0 and 3.5. 03/02/2016 Patient Education: Patient Medication Summary Completed 03/02/2016 Care Plan: Referral Order SNOMED-CT : [id number] Pending 03/02/2016 Visit Plan: Hypertension - well controlled - continue with current medications, continue with no added salt diet. Pt has been encouraged to exercise daily.The pt has been advised to call the office if there are any acute concerns about change in blood pressure readings at home.Hyperlipidemia - pt has been counseled about appropriate [...] and to assure normal liver response to medications.Chronic Anticoagulant use - Pt has been counseled about the anticoagulant, need for serial monitoring, and need for the pt to alert the physician as to any new bruising, or acute bleeding. Therapeutic goal for INR i s between 2.0 and 3.5.Impaired fasting glucose-check Hgb A1C Sinusitis - Pt [...] acute change in symptoms, worsening redness, warmth, discharge.Uncontrolled Htn - recommended pt to check blood pressure at home, call in with report of pressure. 01/25/2014 Appointment: Mahnaz Fajardo WPtel: [address] [place], [place] [id number] Other 01/25/2014 Patient Education: Patient Medication Summary Completed 01/25/2014 Appointment: Mahnaz Fajardo WPtel: [phone] [facility] Sick 11/29/2013 Patient Education: Patient Medication [...] the office next week for practicioner to review.The pt is to call for acute concerns.Coumadin-check PT/INR 11/10/2013 Appointment: Jennifer Perez WPtel: [address] [facility] [phone] [place] [address] Follow up 11/10/2013 Patient Education: Patient Medication Summary Completed 11/10/2013 Patient Education: Hypertension Completed 11/10/2013 Appointment: Mahnaz Fajardo WPtel: [facility] Follow up 11/08/2013 Visit Plan: Hypertension - well controlled - continue with current medications, continue with no added salt diet. Pt has been encouraged to exercise daily.The pt has been advised to call the [...] medications. 05/10/2013 Appointment: Mahnaz Fajardo WPtel: [phone] [phone] Follow up 05/10/2013 Patient Education: Patient Medication Summary Completed 05/10/2013 Patient Education: Hypertension Completed 05/10/2013 Appointment: Mahnaz Fajardo WPtel: [address] [place] [address] Sick 02/24/2013 Visit Plan: Esophageal Reflux - the patient has been counseled against excessive intake of caffiene, spicy foods, peppermint, and cinnamon - all of which can exacerbate esophageal reflux.The patient is to take medications as prescribed and call the office if the symptoms are not improving. Allergies - chronic - recommended pt to use allergy medication as prescribed. Pt has been counseled as the the appropriate use of the medication. Pt to call if allergy symptoms are not controlled with the medication.If using nasal spray, instructions as follows: Nasal [...] diet. Pt has been encouraged to exercise daily.The pt has been advised to call the office if there are any acute concerns about change in blood pressure readings at home.Hyperlipidemia - check lipids in one month. 01/12/2013 Appointment: Mahnaz Fajardo WPtel: [address] [place], [place] [id number] Follow up 01/12/2013 Patient Education: Patient Medication Summary Completed 01/12/2013 Patient Education: Hypertension Completed 01/12/2013 Appointment: Mahnaz Fajardo WPtel: [address] [place], [place] [id number] Follow up 01/11/2013 Visit Plan: Nerve pain [...] the office next week for practicioner to review.The pt is to call for acute concerns.increase the lisinopril to 20mg daily Hyperlipidemia - [...] and to assure normal liver response to medications.[facility] red Krill oil twice daily 11/30/2012 Appointment: Mahnaz Fajardo WPtel: [phone] [facility] Follow up 11/30/2012 Patient Education: Patient [...] the office next week for practicioner to review.The pt is to call for acute concerns.Renal artery stenosis - post stent placement - however, has not had re-eval since the placement of the stent- pt to see Dr. Grayson - cardiothoracic surgeon - Nov 18 At 9 AM.Hip pain - pt to use tylenol for pain - Appt with Dr. Zuniga for hip pain - suspect arthritis. 11/09/2012 Appointment: [facility]el[facility] [facility] 11/09/2012 Patient Education: Patient Medication Summary Completed 11/09/2012 Patient Education: Hypertension Completed 11/09/2012 Referral: Opal Reddy Referral Appointment Requested Instructions [...] call for acute concerns. Coumadin-check PT/INR . Cellulitis - continue with oral antibiotics [...] in the nasal steroid allergy spray. . Hypertension - well controlled - continue [...] improvement. Kenalog injection today in the office. [facility] red Krill oil twice daily increase the [...] to assure normal liver response to medications. [facility] red Krill oil twice daily . Hypertension [...] to assure normal liver response to medications. tiger balm over the counter. Joint pain, [...]
[2019-02-13] MEDS ORDERED: hydrALAZINE (APRESOLINE) 25 MG TAB PO NR (12:00)
--- OUTSIDE RECORDS SUMMARY | 2019-02-13 12:01 | XMS REPORT | CCD ---
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 Name Role Phone PP Unavailable CCM Unavailable Summary Purpose Interface Exchange Insurance Providers Payer name Policy type / Coverage type Covered constitution party ID Effective Begin Date Effective End Date WPS Medicare Part B Medicare Part B [id number] Unknown [employer] Medicare Part B [id number] Unknown Family history Mother Diagnosis Age At Onset Stroke Unknown Father Diagnosis Age At Onset Hypertension Unknown Sister Diagnosis Age At Onset Hypertension Unknown Social History Social History Element Codes Description Effective Dates Marital status Unknown 11/09/[address]: 4154275 Former smoker quit 1988 11/09/2012 Allergies, Adverse Reactions, Alerts Substance Reaction Codes Entered Date Inactivated Date Status ASPIRIN (TARTRAZINE ONLY) hives Unknown 11/09/2012 No Inactive Date Active Past Medical History Illness Codes Condition Status Onset Date Resolved Date Other fatigue ICD-9: 780.79 ICD-10: R53.83 Active 02/24/2017 Unknown Other senior living (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 ICD-9: V58.69 ICD-10: Z79.899 [...] ICD-9: 780.79 ICD-10: R53.83 02/24/2017 Active Other senior living (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 ICD-9: V58.69 ICD-10: Z79.899 [...] Fill Instructions lisinopril 20 mg tablet RxNorm: 137360 1 Tablet(s) PO BID 03/11/2017 03/05/2018 Active Voltaren 1 % topical gel RxNorm: 252547 1 Application TOP BID as needed 03/09/2017 No Stop Date Active lisinopril 20 mg tablet RxNorm: 138952 2 Tablet(s) PO BID 02/26/2017 03/10/2017 Inactive cyclobenzaprine 5 mg tablet RxNorm: 825085 1 Tablet(s) PO TID as needed muscle spasms 02/24/2017 02/28/2017 Inactive warfarin 3 mg tablet RxNorm: 616238 1 Tablet(s) PO daily 11/23/2016 No Stop Date Active lisinopril 20 mg tablet RxNorm: 787211 Take 2 tablets by mouth twice a day 09/22/2016 02/25/2017 Inactive - Ref: [id number] lisinopril 20 mg tablet RxNorm: 897002 1 Tablet(s) PO BID 05/07/2016 02/25/2017 Inactive First Attempt Coreg 25 mg tablet RxNorm: 648653 1 Tablet(s) PO BID 05/07/2016 02/23/[address] Reddy lisinopril 20 mg tablet RxNorm: 125080 1 Tablet(s) PO daily Take 2 tablets by mouth bid 05/07/2016 05/06/2016 Inactive First Attempt Flomax 0.4 mg capsule RxNorm: 823244 Take 2 capsules by mouth daily 03/15/2016 06/07/2017 Active - First Attempt lisinopril 20 mg tablet RxNorm: 154600 2 Tablet(s) PO BID Take 2 tablets by mouth bid 03/04/2016 05/06/2016 Inactive First Attempt lisinopril 20 mg tablet RxNorm: 514057 1 Tablet(s) PO BID Take 2 tablets by mouth daily 03/02/2016 03/03/2016 Inactive First Attempt Phenergan with Codeine Syrup RxNorm: 5 Milliliter(s) PO Q6 PRN 10/31/2015 No Stop Date Active Kenalog 40 mg/mL suspension for injection RxNorm: 7986600 Milliliter(s) Inj 10/31/2015 10/31/2015 Inactive warfarin 3 mg tablet RxNorm: 346806 Tablet(s) Take 1 tablet by mouth on tues,wed,thur,sat and sun and 1 and 1/2 tablets by mouth on mon and wed10/31/2015 07/23/2016 Inactive Zithromax Z-[place] 250 mg tablet RxNorm: 994177 1 Tablet(s) PO UD 10/31/2015 11/04/2015 Inactive zpack Coreg 3.125 mg tablet RxNorm: 225596 1 Tablet(s) PO BID 06/19/2015 05/06/2016 Inactive warfarin 3 mg tablet RxNorm: 234035 Take 1 tablet by mouth on tues,wed,thur,sat and sun and 1 and 1/2 tablets by mouth on mon and wed06/06/2015 06/05/2015 Inactive 2nd Attempt warfarin 3 mg tablet RxNorm: 983193 Tablet(s) Take 1 tablet by mouth on tues,wed,thur,sat and sun and 1 and 1/2 tablets by mouth on mon and wed06/06/2015 10/30/2015 Inactive 2nd Attempt Flomax 0.4 mg capsule RxNorm: 700200 Take 2 capsules by mouth daily 04/29/2015 01/23/2016 Inactive First Attempt lisinopril 10 mg tablet RxNorm: 677118 Take 2 tablets by mouth daily 04/29/2015 01/23/2016 Inactive First Attempt warfarin 3 mg tablet RxNorm: 759488 one wed sat sun 4.5mg wednesday Tablet(s) PO daily 07/25/2014 06/05/2015 Inactive Flomax 0.4 mg capsule RxNorm: 673303 2 Capsule(s) PO daily 07/25/2014 04/28/2015 Inactive lisinopril 10 mg tablet RxNorm: 087928 2 Tablet(s) PO daily 07/25/2014 04/28/2015 Inactive Coreg 3.125 mg tablet RxNorm: 248234 1 Tablet(s) PO BID 07/25/2014 06/18/2015 Inactive cephalexin 500 mg capsule RxNorm: 481586 1 Capsule(s) PO QID 11/29/2013 10/30/2015 Inactive lisinopril 20 mg tablet RxNorm: 604791 1 Tablet(s) PO BID 11/10/2013 03/09/2014 Inactive Flomax 0.4 mg capsule RxNorm: 888427 2 Capsule(s) PO daily 10/12/2013 07/24/2014 Inactive Coreg 3.125 mg tablet RxNorm: 740626 1 Tablet(s) PO BID 10/12/2013 07/24/2014 Inactive lisinopril 10 mg tablet RxNorm: 092196 2 Tablet(s) PO daily 10/12/2013 11/09/2013 Inactive warfarin 3 mg tablet RxNorm: 681919 one wedur sat sun 4.5mg wednesday Tablet(s) PO daily 10/12/2013 07/24/2014 Inactive o Flomax 0.4 mg capsule RxNorm: 394653 2 Capsule(s) PO daily 06/05/2013 10/11/2013 Inactive Zetia 10 mg tablet RxNorm: 751521 1 Tablet(s) PO daily 05/16/2013 05/15/2013 Inactive Zetia 10 mg tablet RxNorm: 596816 1 Tablet(s) PO daily 05/16/2013 09/12/2013 Inactive Carafate 100 mg/mL Oral Susp RxNorm: 369013 10 Milliliter(s) PO QID 05/10/2013 10/30/2015 Inactive dispense one month supply Flomax 0.4 mg capsule RxNorm: 320423 2 Capsule(s) PO daily 05/10/2013 06/04/2013 Inactive Carafate 100 mg/mL Oral Susp RxNorm: 489251 10 Milliliter(s) PO QID 02/23/2013 04/23/2013 Inactive dispense one month supply gabapentin 100 mg capsule RxNorm: 912111 1 Capsule(s) PO daily one at bedtime and one up to three times daily as needed for nerve pain in leg 01/16/2013 05/09/2013 Inactive gabapentin 100 mg capsule RxNorm: 362949 1 Capsule(s) PO daily one at bedtime and one up to three times daily as needed for nerve pain in leg 01/12/2013 01/15/2013 Inactive warfarin 3 mg tablet RxNorm: 399412 Tablet(s) PO 12/05/2012 10/11/2013 Inactive one tutyler thur sat4.5 mg mon frid lisinopril 10 mg tablet RxNorm: 512693 2 Tablet(s) PO daily 11/30/2012 06/27/2013 Inactive gabapentin 100 mg capsule RxNorm: 681824 1 Capsule(s) PO Q8 PRN one at bedtime and one up to three times daily as needed for nerve pain in leg 11/30/2012 01/11/2013 Inactive Coreg 3.125 mg tablet RxNorm: 846092 1 Tablet(s) PO BID 11/09/2012 01/07/2013 Inactive lisinopril 10 mg tablet RxNorm: 973616 1.5 Tablet(s) PO daily 11/09/2012 11/29/2012 Inactive Co Q-10 oral RxNorm: 92058 oral No Start Date Active Coreg 12.5 mg tablet RxNorm: 787651 1 Tablet(s) PO BID No Start Date Active lisinopril 20 mg tablet RxNorm: 962339 1 Tablet(s) PO BID No Start Date Active Voltaren 1 % topical gel RxNorm: 375864 1 Application TOP BID as needed No Start Date 03/08/2017 Inactive warfarin 3 mg tablet RxNorm: 473442 Tablet(s) PO No Start Date 12/04/2012 Inactive one josé luis brooks sat4.5 mg keila azevedo Flomax 0.4 mg capsule RxNorm: 214531 1 Capsule(s) PO daily No Start Date 05/09/2013 Inactive niacin 500 mg tablet RxNorm: 491726 1 Tablet(s) PO daily No Start Date 03/01/2016 Inactive Medication Administered Medication Codes Instructions Start Date Status Kenalog 40 mg/mL suspension for injection RxNorm: 9576474 Milliliter 10/31/2015 No longer Active Immunizations No Immunization data Assessments Condition Codes Effective Dates Pain in joints of right hand ICD-10: M25.541 ICD-9: 719.44 02/24/2017 Pain in right elbow ICD-10: M25.521 ICD-9: 719.42 02/24/2017 Other fatigue ICD-10: R53.83 ICD-9: 780.79 02/24/2017 Other manager long term care (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 ICD-10: Z79.899 ICD-9: V58.69 02/24/2017 Pain in left elbow ICD-10: M25.522 [...] sinusitis ICD-9: 461.0 11/29/2013 ESSENTIAL HYPERTENSION SNOMED: 89818153 ICD-9: 401.9 11/10/2013 Encounter for long-term (current) [...] Observation Code Item Item Code Result Date Tsh Ord6 hTSH II 0.86 uIU/mL 02/24/2017 C-Reactive Protein Qnt Crqnt CRP 0.2 mg/dl 02/24/2017 Comp Metabolic Moa473 NA 139 mEq/L 02/24/2017 Comp Metabolic Wkq290 K 3.9 mEq/L 02/24/2017 Comp Metabolic Koy876 CL 105 mEq/L 02/24/2017 Comp Metabolic Rdi286 CO2 27.0 mEq/L 02/24/2017 Comp Metabolic Xun051 ANION GAP 11 02/24/2017 Comp Metabolic Aft139 GLUCOSE 93 mg/dL 02/24/2017 Comp Metabolic Azv885 Creat 1.1 mg/dL 02/24/2017 Comp Metabolic Zbn931 eGFR 73 ml/min/1.73m2 02/24/2017 Comp Metabolic Jhh887 BUN 14 mg/dL 02/24/2017 Comp Metabolic Fla240 B/C Ratio 13.1 Ratio 02/24/2017 Comp Metabolic Bfu385 CALCIUM 8.4 mg/dL 02/24/2017 Comp Metabolic Qjb889 ALK PHOS 89 U/L 02/24/2017 Comp Metabolic Jcy839 AST(SGOT) 18 U/L 02/24/2017 Comp Metabolic Wln154 ALT(SGPT) 21 U/L 02/24/2017 Comp Metabolic Zku665 BILI T 0.5 mg/dL 02/24/2017 Comp Metabolic Lma412 ALBUMIN 3.8 g/dL 02/24/2017 Comp Metabolic Wtj596 TPRO 6.5 g/dL 02/24/2017 Comp Metabolic Uic079 GLOB 2.7 g/dL 02/24/2017 Comp Metabolic Wjn842 A/G Ratio 1.4 Ratio 02/24/2017 Comp Metabolic Bev345 Osmo 278 mOsmo 02/24/2017 Sed Rate Ord21 ESR 25 mm/hr 02/24/2017 Pt Ite5867 PT 31.7 seconds 02/24/2017 Pt Dev7711 INR 3.3 02/24/2017 Pt Ynf0465 Low Intensity - 1.5-2.0 02/24/2017 Pt Mer9798 Mod intensity - 2.0-3.0 02/24/2017 Pt Dcm4947 Hi intensity - 3.0-4.0 02/24/2017 Cbc With [...] 31.1 % 02/24/2017 Cbc With Differential Ord2 [place]% 9.7 % 02/24/2017 Cbc With Differential Ord2 [...] 2.62 K/ul 02/24/2017 Cbc With Differential Ord2 [place] ABS# 0.8 K/ul 02/24/2017 Cbc With Differential Ord2 Eos ABS# 0.2 K/ul 02/24/2017 Cbc With Differential Ord2 Baso ABS# 0.1 K/ul 02/24/2017 Pt Tzf6257 PT 22.4 seconds 12/28/2016 Pt Yci8126 INR 2.1 12/28/2016 Pt Vly1589 Low Intensity - 1.5-2.0 12/28/2016 Pt Tsi5777 Mod intensity - 2.0-3.0 12/28/2016 Pt Efj3723 Hi intensity - 3.0-4.0 12/28/2016 Pt Xot7555 PT 30.2 seconds 11/26/2016 Pt Ppw8284 INR 3.1 11/26/2016 Pt Axo7853 Low Intensity - 1.5-2.0 11/26/2016 Pt Xdk4459 Mod intensity - 2.0-3.0 11/26/2016 Pt Ili1400 Hi intensity - 3.0-4.0 11/26/2016 Pt Nka6727 PT 34.3 seconds 11/20/2016 Pt Ket7204 INR 3.7 11/20/2016 Pt Xtj4385 Low Intensity - 1.5-2.0 11/20/2016 Pt Csc2324 Mod intensity - 2.0-3.0 11/20/2016 Pt Gdv3243 Hi intensity - 3.0-4.0 11/20/2016 Pt Jwt1410 PT 29.0 seconds 07/14/2016 Pt Fkm3865 INR 2.9 07/14/2016 Pt Odo2654 Low Intensity - 1.5-2.0 07/14/2016 Pt Wch6437 Mod intensity - 2.0-3.0 07/14/2016 Pt Nia6468 Hi intensity - 3.0-4.0 07/14/2016 Lipid Ord30 CHOL 236 mg/dL 07/14/2016 Lipid Ord30 HDL 36.0 mg/dl 07/14/2016 Lipid Ord30 TRIG 406 mg/dL 07/14/2016 Lipid Ord30 LDL Unable to calculate Due to elevated triglycerides mg/dL 07/14/2016 Lipid Ord30 C/HDL 6.6 Ratio 07/14/2016 Pt Nlq0668 PT 30.0 seconds 03/02/2016 Pt Oyx9444 INR 3.1 03/02/2016 Pt Tph5136 Low Intensity - 1.5-2.0 03/02/2016 Pt Vjd6899 Mod intensity - 2.0-3.0 03/02/2016 Pt Lky1837 Hi intensity - 3.0-4.0 03/02/2016 %Hba1C Jxv358 % HbA1c 02784- 6 6.0 % 03/02/2016 %Hba1C Xwn526 Gluc Ave 126 mg/dL 03/02/2016 Tsh Ord6 hTSH II 0.68 uIU/mL 03/02/2016 Comp Metabolic Uva217 NA 140 mEq/L 03/02/2016 Comp Metabolic Bnt901 K 4.1 mEq/L 03/02/2016 Comp Metabolic Cjw574 CL 105 mEq/L 03/02/2016 Comp Metabolic Zml574 CO2 29.0 mEq/L 03/02/2016 Comp Metabolic Vsq485 ANION GAP 10 03/02/2016 Comp Metabolic Aoh705 GLUCOSE 104 mg/dL 03/02/2016 Comp Metabolic Acy993 Creat 1.0 mg/dL 03/02/2016 Comp Metabolic Alc166 eGFR 77 ml/min/1.73m2 03/02/2016 Comp Metabolic Syf036 BUN 15 mg/dL 03/02/2016 Comp Metabolic Bhs461 B/C Ratio 14.7 Ratio 03/02/2016 Comp Metabolic Jaw536 CALCIUM 8.9 mg/dL 03/02/2016 Comp Metabolic Jxg102 ALK PHOS 84 U/L 03/02/2016 Comp Metabolic Hsh180 AST(SGOT) 16 U/L 03/02/2016 Comp Metabolic Drv727 ALT(SGPT) 17 U/L 03/02/2016 Comp Metabolic Fnk356 BILI T 0.5 mg/dL 03/02/2016 Comp Metabolic Ugf677 ALBUMIN 4.0 g/dL 03/02/2016 Comp Metabolic Jvo059 TPRO 6.6 g/dL 03/02/2016 Comp Metabolic Kwu120 GLOB 2.6 g/dL 03/02/2016 Comp Metabolic Qhl339 A/G Ratio 1.5 Ratio 03/02/2016 Comp Metabolic Fyk769 Osmo 281 mOsmo 03/02/2016 Cbc With Differential [...] 28.4 % 03/02/2016 Cbc With Differential Ord2 [place]% 8.1 % 03/02/2016 Cbc With Differential Ord2 [...] 2.29 K/ul 03/02/2016 Cbc With Differential Ord2 [place] ABS# 0.7 K/ul 03/02/2016 Cbc With Differential [...] 85.0 fl 10/31/2015 Cbc With Differential Ord2 [place]% 12.7 % 10/31/2015 Cbc With Differential Ord2 [...] 1.31 K/ul 10/31/2015 Cbc With Differential Ord2 [place] ABS# 0.7 K/ul 10/31/2015 Cbc With Differential [...] hTSH II 0.88 uIU/mL 10/31/2015 Comp Metabolic Poe579 NA 135 mEq/L 10/31/2015 Comp Metabolic Jdi481 K 4.2 mEq/L 10/31/2015 Comp Metabolic Jmt774 CL 99 mEq/L 10/31/2015 Comp Metabolic Pak555 CO2 28.0 mEq/L 10/31/2015 Comp Metabolic Nve492 ANION GAP 12 10/31/2015 Comp Metabolic Msv053 GLUCOSE 107 mg/dL 10/31/2015 Comp Metabolic Dyd030 Creat 1.2 mg/dL 10/31/2015 Comp Metabolic Gbw472 eGFR 63 ml/min/1.73m2 10/31/2015 Comp Metabolic Qgf476 BUN 12 mg/dL 10/31/2015 Comp Metabolic Wcc671 B/C Ratio 9.9 Ratio 10/31/2015 Comp Metabolic Lyc633 CALCIUM 8.4 mg/dL 10/31/2015 Comp Metabolic Pam668 ALK PHOS 134 U/L 10/31/2015 Comp Metabolic Jxy112 AST(SGOT) 20 U/L 10/31/2015 Comp Metabolic Znm348 ALT(SGPT) 16 U/L 10/31/2015 Comp Metabolic Bed027 BILI T 0.4 mg/dL 10/31/2015 Comp Metabolic Xzp423 ALBUMIN 4.2 g/dL 10/31/2015 Comp Metabolic Iru593 TPRO 7.2 g/dL 10/31/2015 Comp Metabolic Aip139 GLOB 3.1 g/dL 10/31/2015 Comp Metabolic Moj718 A/G Ratio 1.4 Ratio 10/31/2015 Comp Metabolic Oky439 Osmo 270 mOsmo 10/31/2015 Total Psa Ord10 PSA 2.66 ng/mL 10/31/2015 %Hba1C Ulp647 % HbA1c 87168- 6 6.1 % 10/31/2015 %Hba1C Slg426 Gluc Ave 128 mg/dL 10/31/2015 Pt Fxp2102 PT 26.4 seconds 10/31/2015 Pt Vrs8706 INR 2.5 10/31/2015 Pt Nnz7694 Low Intensity - 1.5-2.0 10/31/2015 Pt Qkp1016 Mod intensity - 2.0-3.0 10/31/2015 Pt Roo4174 Hi intensity - 3.0-4.0 10/31/2015 TSH 0694044 TSH 0.819 uIU/ML 11/10/2013 PT/MC 1848326 PRO TIME 24.5 SEC 11/10/2013 PT/MC 5472651 INR MCMC 2.3 11/10/2013 GFR CALC 3986990 GFR AA >60 ML/MIN 11/10/2013 GFR CALC 8882611 GFR NON-AA >60 ML/MIN 11/10/2013 CBC 1225184 WBC 8.4 10e9/L 11/10/2013 CBC 1647920 RBC 5.24 10e12/L 11/10/2013 CBC 6484856 HGB 15.4 g/dL 11/10/2013 CBC 7271926 HCT DET 43.8 % 11/10/2013 CBC 0640416 MCV 83.6 fL 11/10/2013 CBC 2558110 MCH 29.4 pg 11/10/2013 CBC 1833275 MCHC 35.2 g/dL 11/10/2013 CBC 7812427 PLT 250 10e9/L 11/10/2013 CBC 1267686 MPV 11.1 fL 11/10/2013 CBC 8743945 OANH % 58.1 % 11/10/2013 CBC 1337037 LY % 28.5 % 11/10/2013 CBC 0635623 MON % 10.2 % 11/10/2013 CBC 1169197 EOS % 2.1 % 11/10/2013 CBC 9262530 BASO % 1.1 % 11/10/2013 CBC 6602044 RDW 13.3 % 11/10/2013 CBC 5986760 ABS OANH 4.88 10e9/L 11/10/2013 CBC 4015024 ABS LYMPH 2.39 10e9/L 11/10/2013 CBC 3824532 ABS MONO 0.86 10e9/L 11/10/2013 CBC 4559491 ABS EOS 0.18 10e9/L 11/10/2013 CBC 5908137 ABS BASO 0.09 10e9/L 11/10/2013 CBC 9704505 RDW-SD 40.7 fL 11/10/2013 CHEM 14 6521105 AST 17 U/L 11/10/2013 CHEM 14 7429641 ALT 17 IU/L 11/10/2013 CHEM 14 6754249 BUN 15 MG/DL 11/10/2013 CHEM 14 1994064 ALBUMIN 4.3 GM/DL 11/10/2013 CHEM 14 4176272 CHLORIDE 103 MMOL/L 11/10/2013 CHEM 14 8426178 BILI TOT 0.6 MG/DL 11/10/2013 CHEM 14 1465372 ALK PHOS 104 U/L 11/10/2013 CHEM 14 5365181 SODIUM 137 MMOL/L 11/10/2013 CHEM 14 8157421 CREATININE 1.08 MG/DL 11/10/2013 CHEM 14 6761296 CALCIUM 8.9 MG/DL 11/10/2013 CHEM 14 1199618 POTASSIUM 4.0 MMOL/L 11/10/2013 CHEM 14 8443772 PROT TOT 7.0 GM/DL 11/10/2013 CHEM 14 4945697 GLUCOSE 84 MG/DL 11/10/2013 CHEM 14 1039330 BICARB 28 MMOL/L 11/10/2013 CHEM 14 9109778 ANION GAP 6 MEQ/L 11/10/2013 Review of [...] 1995 Ears/Nose/Throat oral cavity/pharynx/larynx Overall: no masses 11/10/2013 [...] masses 05/10/2013 None Full Exam - General 1995 Respiratory auscultation Overall: breath sounds clear bilaterally 05/10/2013 None Full Exam - General 1995 Respiratory respiratory effort/rhythm Overall: no retractions 05/10/2013 None Full Exam - General 1995 Respiratory respiratory effort/rhythm Overall: normal rate 05/10/2013 None Full Exam - General 1995 Cardiovascular extremities Overall: no clubbing 05/10/2013 None Full Exam - General 1995 Cardiovascular auscultation of heart Overall: regular rate 05/10/2013 None Full Exam - General 1994 Cardiovascular auscultation of heart Overall: normal heart sounds 05/10/2013 None Full Exam - General 1995 [...] masses 02/23/2013 None Full Exam - General 1995 Respiratory auscultation Overall: breath sounds clear bilaterally 02/23/2013 None Full Exam - General 1994 Respiratory respiratory effort/rhythm Overall: no retractions 02/23/2013 None Full Exam - General 1994 Respiratory respiratory effort/rhythm Overall: normal rate 02/23/2013 None Full Exam - General 1995 Cardiovascular extremities Overall: no clubbing 02/23/2013 None [...] Procedure Codes Date THER/PROPH/DIAG INJ SC/IM CPT-4: 44657Cldvuub 10/31/2015 TRIAMCINOLONE ACET INJ NOS CPT-4: D3526Htaukpc 10/31/2015 ROUTINE VENIPUNCTURE CPT-4: 74506Orvwzuo 11/10/2013 PRESCRIP TRANSMIT VIA ERX SY CPT-4: J6944Hxzigsg 02/23/2013 PRESCRIP TRANSMIT VIA ERX SY CPT-4: K1929Npiewlg 11/30/2012 PRESCRIP TRANSMIT VIA ERX SY CPT-4: U7581Fybytnl 11/09/2012 Vital Signs Date Vital 02/24/2017 Blood Pressure 1: 146/60 Code: 8480-6 BMI: 27.4 Code: 87225-6 Heart Rate 1: 61 bpm Height: 5'10" SpO2: 97% Weight: 191 lbs 05/07/2016 Blood Pressure 1: 146/66 Code: 8480-6 BMI: 26.3 Code: 07628-1 Heart Rate 1: 69 bpm Height: 5'10" SpO2: 97% Weight: 183 lbs 03/02/2016 Blood Pressure 1: 170/100 Code: 8480-6 Blood Pressure 1: 190/108 Code: 8480-6 BMI: 26.5 Code: 89027-8 Heart Rate 1: 76 bpm Height: 5'10" SpO2: 98% Weight: 185 lbs 10/31/2015 Blood Pressure 1: 126/86 Code: 8480-6 Blood Pressure 1: 142/90 Code: 8480-6 BMI: 26.8 Code: 04797-9 Heart Rate 1: 99 bpm Height: 5'10" SpO2: 95% Temperature: 37.0 (C) / 98.6 (F) Weight: 187 lbs 01/25/2014 Blood Pressure 1: 180/90 Code: 8480-6 BMI: 26.3 Code: 19335-7 Heart Rate 1: 76 bpm Height: 5'10" Temperature: 37.4 (C) / 99.3 (F) Weight: 183 lbs 11/29/2013 Blood Pressure 1: 164/82 Code: 8480-6 Heart Rate 1: 80 bpm Temperature: 37.1 (C) / 98.7 (F) Weight: 187 lbs 11/10/2013 Blood Pressure 1: 156/94 Code: 8480-6 Heart Rate 1: 72 bpm Weight: 186 lbs 05/10/2013 Blood Pressure 1: 134/78 Code: 8480-6 BMI: 25.7 Code: 84983-3 Heart Rate 1: 84 bpm Height: 5'10" Weight: 179 lbs 02/23/2013 Blood Pressure 1: 138/90 Code: 8480-6 BMI: 27.0 Code: 22442-1 Heart Rate 1: 88 bpm Height: 5'10" Temperature: 37.0 (C) / 98.6 (F) Weight: 188 lbs 01/12/2013 Blood Pressure 1: 136/78 Code: 8480-6 BMI: 26.7 Code: 95485-7 Heart Rate 1: 96 bpm Height: 5'10" Weight: 186 lbs 11/30/2012 Blood Pressure 1: 170/90 Code: 8480-6 BMI: 26.8 Code: 35764-0 Heart Rate 1: 80 bpm Height: 5'10" Weight: 187 lbs 11/09/2012 Blood Pressure 1: 178/84 Code: 8480-6 BMI: 26.5 Code: 83538-3 Heart Rate 1: 86 bpm Height: 5'10" [...] pain Quality recurrent 05/10/2013 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 PATIENT, LEVEL IV Diagnosis: Pain in left elbow[ICD10: M25.522] Diagnosis: Pain in right elbow[ICD10: M25.521] Diagnosis: Pain in joints of left hand[ICD10: M25.542] Diagnosis: Pain in joints of right hand[ICD10: M25.541] Diagnosis: Other fatigue[ICD10: R53.83] Diagnosis: Other senior living (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[ICD10: Z79.899] Gayle Fajardo MD, [facility] CPT-4: 59966 02/24/2017 ([id number]) 03652 EST. PATIENT, LEVEL III Diagnosis: Essential (primary) hypertension[ICD10: I10] Jennifer Fajardo MD, [facility] CPT-4: 22020 05/07/2016 ([id number]) 10128 EST. PATIENT, LEVEL IV Diagnosis: Essential (primary) hypertension[ICD10: I10] Diagnosis: Impaired fasting glucose[ICD10: R73.01] Diagnosis: Other manager long term care (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[ICD10: Z79.899] Jennifer Fajardo MD, [facility] CPT-4: 13310 03/02/2016 ([id number]) 24268 EST. PATIENT, LEVEL IV Diagnosis: Essential (primary) hypertension[ICD10: I10] Diagnosis: Mixed hyperlipidemia[ICD10: E78.2] Diagnosis: Other senior living (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[ICD10: Z79.899] Diagnosis: Impaired fasting glucose[ICD10: R73.01] Diagnosis: Acute recurrent maxillary sinusitis[ICD10: J01.01] Jennifer Fajardo MD, [facility] CPT-4: 18247 10/31/2015 ([id number]) 08143 EST. PATIENT, LEVEL III Diagnosis: CELLULITIS[ICD9: 682.9] Mahnaz Fajardo MD [facility] CPT-4: 13778 01/25/2014 ([id number]) 07721 EST. PATIENT, LEVEL III Diagnosis: Acute maxillary sinusitis[ICD9: 461.0] Diagnosis: Cough[ICD9: 786.2] Mahnaz Fajardo MD, [facility] CPT-4: 26779 11/29/2013 ([id number]) 37863 EST. PATIENT, LEVEL III Diagnosis: ESSENTIAL HYPERTENSION[SNOMED: 77357320] Diagnosis: Encounter for long-term (current) use of other high-risk medications[ICD9: V58.69] Jennifer Fajardo MD, [facility] CPT-4: 37452 11/10/2013 ([id number]) 74394 EST. PATIENT, LEVEL IV Diagnosis: ESSENTIAL HYPERTENSION[SNOMED: 10243148] Diagnosis: HYPERLIPIDEMIA[ICD9: 272.4] Mahnaz Fajardo MD, [facility] CPT-4: 44653 05/10/2013 ([id number]) 33184 EST. PATIENT, LEVEL III Diagnosis: Esophageal reflux[ICD9: 530.81] Diagnosis: Sore throat[ICD9: 462] Diagnosis: Allergic rhinitis[ICD9: 477.9] Mahnaz Fajardo MD, [facility] CPT-4: 04806 02/23/2013 ([id number]) 95468 EST. PATIENT, LEVEL III Diagnosis: ESSENTIAL HYPERTENSION[SNOMED: 06549037] Diagnosis: HYPERLIPIDEMIA[ICD9: 272.4] Mahnaz Fajardo MD, [facility] CPT-4: 77809 01/12/2013 ([id number]) 72638 EST. 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] Mahnaz Fajardo MD, [facility] CPT-4: 89023 11/30/2012 ([id number]) OFFICE VISIT, NEW - LEVEL 4 Diagnosis: ESSENTIAL HYPERTENSION[SNOMED: 64002625] Diagnosis: Renal artery stenosis[ICD9: 440.1] Diagnosis: Hip pain[ICD9: 719.45] Mahnaz Fajardo MD, [facility] CPT-4: 25142 11/09/2012 Plan of Care Planned Activity Notes Codes Status Date Appointment: Gayle Morris WPtel: [phone] [facility] (30 min) Complex 02/24/2017 Patient Education: Patient Medication Summary Completed 02/24/2017 Patient Education: Patient Medication Summary Completed 11/20/2016 Care Plan: Pt Pending 11/20/2016 Appointment: Jennifer Perez WPtel: [facility][note 3]5 [phone] (30 min) Complex 11/05/2016 Appointment: Jennifer Perez WPtel: [facility][note 3]5 [phone] (30 min) Complex 05/07/2016 Patient Education: Patient Medication Summary Completed 05/07/2016 Referral: Opal Reddy Referral Completed 03/13/2016 Patient Education: Patient Medication Summary Completed 03/02/2016 Care Plan: Referral Order SNOMED-CT : [id number] Pending 03/02/2016 Appointment: (30 min) Complex 10/31/2015 Patient Education: Patient Medication Summary Completed 10/31/2015 Patient Education: Hypertension Completed 10/31/2015 Appointment: Mahnaz Fajardo WPtel: [address] [place], [place] [phone] Other 01/25/2014 Patient Education: Patient Medication Summary Completed 01/25/2014 Appointment: Mahnaz Fajardo WPtel: [facility][note 3]5 [facility] [place] [id number] S[place] 11/29/2013 Patient Education: Patient Medication Summary Completed 11/29/2013 Appointment: Jennifer Perez WPtel: [facility][note 3]5 [id number] Follow up 11/10/2013 Patient Education: Patient Medication Summary Completed 11/10/2013 Patient Education: Hypertension Completed 11/10/2013 Appointment: Mahnaz Fajardo WPtel: [facility][note 3]5 [facility] [id number] Follow up 11/08/2013 Appointment: Mahnaz Fajardo WPtel: [address] [place], [place] [id number] Follow up 05/10/2013 Patient Education: Patient Medication Summary Completed 05/10/2013 Patient Education: Hypertension Completed 05/10/2013 Appointment: Mahnaz Fajardo WPtel: [address] [place], [place] [id number] Sick 02/24/2013 Patient Education: Patient Medication Summary Completed 02/23/2013 Appointment: Mahnaz Fajardo WPtel: [address] [place], [place] [phone] Follow up 01/12/2013 Patient Education: Patient Medication Summary Completed 01/12/2013 Patient Education: Hypertension Completed 01/12/2013 Appointment: Mahnaz Fajardo WPtel: [address] [place], [place] [id number] Follow up 01/11/2013 Appointment: Mahnaz Fajardo WPtel: [address] [place], [place] [id number] Follow up 11/30/2012 Patient Education: Patient Medication Summary Completed 11/30/2012 Patient Education: Hypertension Completed 11/30/2012 Appointment: Mahnaz Fajardo WPtel: [facility] [place][note 3][facility] [place] [id number] New Patient 11/09/2012 Patient Education: Patient Medication Summary Completed 11/09/2012 Patient Education: Hypertension Completed 11/09/2012 Referral: Opal Reddy Referral Appointment Requested Instructions No Instructions
--- OUTSIDE RECORDS SUMMARY | 2019-02-13 12:03 | XMS REPORT | CCD ---
Author Author [facility] Organization [facility] Address [address] [place] [address] Phone Care Team Providers Care Candy Separator Hard Name Role Phone PP Unavailable CCM Unavailable Summary Purpose Interface Exchange Insurance Providers Payer name Policy type / Coverage type Covered libertarian ID Effective Begin Date Effective End Date WPS Medicare Part B Medicare Part B [id number] Unknown United [employer] Medicare Part B [id number] Unknown Family history Mother Diagnosis Age At Onset Stroke Unknown Father Diagnosis Age At Onset Hypertension Unknown Sister Diagnosis Age At Onset Hypertension Unknown Social History Social History Element Codes Description Effective Dates Marital status Unknown 11/09/[address]: 4105145 Former smoker quit 1988 11/09/2012 Allergies, Adverse Reactions, Alerts Substance Reaction Codes Entered Date Inactivated Date Status ASPIRIN (TARTRAZINE ONLY) hives Unknown 11/09/2012 No Inactive Date Active Past Medical History Illness Codes Condition Status Onset Date Resolved Date Other fatigue ICD-9: 780.79 ICD-10: R53.83 Active 02/24/2017 Unknown Other mcfp (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 ICD-9: V58.69 ICD-10: Z79.899 [...] ICD-9: 780.79 ICD-10: R53.83 02/24/2017 Active Other mcfp (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 ICD-9: V58.69 ICD-10: Z79.899 [...] Start Date Stop Date Status Fill Instructions Voltaren 1 % topical gel RxNorm: 679904 1 Application TOP BID as needed 03/09/2017 No Stop Date Active lisinopril 20 mg tablet RxNorm: 040672 2 Tablet(s) PO BID 02/26/2017 02/20/2018 Active cyclobenzaprine 5 mg tablet RxNorm: 494672 1 Tablet(s) PO TID as needed muscle spasms 02/24/2017 02/28/2017 Inactive warfarin 3 mg tablet RxNorm: 097805 1 Tablet(s) PO daily 11/23/2016 No Stop Date Active lisinopril 20 mg tablet RxNorm: 008167 Take 2 tablets by mouth twice a day 09/22/2016 02/25/2017 Inactive - Ref: [id number] lisinopril 20 mg tablet RxNorm: 037168 1 Tablet(s) PO BID 05/07/2016 02/25/2017 Inactive First Attempt Coreg 25 mg tablet RxNorm: 891964 1 Tablet(s) PO BID 05/07/2016 02/23/[address] Reddy lisinopril 20 mg tablet RxNorm: 543321 1 Tablet(s) PO daily Take 2 tablets by mouth bid 05/07/2016 05/06/2016 Inactive First Attempt Flomax 0.4 mg capsule RxNorm: 833283 Take 2 capsules by mouth daily 03/15/2016 06/07/2017 Active - First Attempt lisinopril 20 mg tablet RxNorm: 636552 2 Tablet(s) PO BID Take 2 tablets by mouth bid 03/04/2016 05/06/2016 Inactive First Attempt lisinopril 20 mg tablet RxNorm: 974623 1 Tablet(s) PO BID Take 2 tablets by mouth daily 03/02/2016 03/03/2016 Inactive First Attempt Phenergan with Codeine Syrup RxNorm: 5 Milliliter(s) PO Q6 PRN 10/31/2015 No Stop Date Active Kenalog 40 mg/mL suspension for injection RxNorm: 3740684 Milliliter(s) Inj 10/31/2015 10/31/2015 Inactive warfarin 3 mg tablet RxNorm: 721458 Tablet(s) Take 1 tablet by mouth on tues,wed,thur,sat and sun and 1 and 1/2 tablets by mouth on mon and wed10/31/2015 07/23/2016 Inactive Zithromax Z-[place] 250 mg tablet RxNorm: 918325 1 Tablet(s) PO UD 10/31/2015 11/04/2015 Inactive zpack Coreg 3.125 mg tablet RxNorm: 645598 1 Tablet(s) PO BID 06/19/2015 05/06/2016 Inactive warfarin 3 mg tablet RxNorm: 380498 Take 1 tablet by mouth on tues,wed,thur,sat and sun and 1 and 1/2 tablets by mouth on mon and wed06/06/2015 06/05/2015 Inactive 2nd Attempt warfarin 3 mg tablet RxNorm: 446020 Tablet(s) Take 1 tablet by mouth on tues,wed,thur,sat and sun and 1 and 1/2 tablets by mouth on mon and wed06/06/2015 10/30/2015 Inactive 2nd Attempt Flomax 0.4 mg capsule RxNorm: 908441 Take 2 capsules by mouth daily 04/29/2015 01/23/2016 Inactive First Attempt lisinopril 10 mg tablet RxNorm: 975191 Take 2 tablets by mouth daily 04/29/2015 01/23/2016 Inactive First Attempt warfarin 3 mg tablet RxNorm: 041943 one wed sat sun 4.5mg wednesday Tablet(s) PO daily 07/25/2014 06/05/2015 Inactive Flomax 0.4 mg capsule RxNorm: 674794 2 Capsule(s) PO daily 07/25/2014 04/28/2015 Inactive lisinopril 10 mg tablet RxNorm: 527903 2 Tablet(s) PO daily 07/25/2014 04/28/2015 Inactive Coreg 3.125 mg tablet RxNorm: 030499 1 Tablet(s) PO BID 07/25/2014 06/18/2015 Inactive cephalexin 500 mg capsule RxNorm: 943215 1 Capsule(s) PO QID 11/29/2013 10/30/2015 Inactive lisinopril 20 mg tablet RxNorm: 597645 1 Tablet(s) PO BID 11/10/2013 03/09/2014 Inactive Flomax 0.4 mg capsule RxNorm: 506772 2 Capsule(s) PO daily 10/12/2013 07/24/2014 Inactive Coreg 3.125 mg tablet RxNorm: 455744 1 Tablet(s) PO BID 10/12/2013 07/24/2014 Inactive lisinopril 10 mg tablet RxNorm: 778994 2 Tablet(s) PO daily 10/12/2013 11/09/2013 Inactive warfarin 3 mg tablet RxNorm: 640859 one wed sat sun 4.5mg wednesday Tablet(s) PO daily 10/12/2013 07/24/2014 Inactive o Flomax 0.4 mg capsule RxNorm: 880939 2 Capsule(s) PO daily 06/05/2013 10/11/2013 Inactive Zetia 10 mg tablet RxNorm: 615731 1 Tablet(s) PO daily 05/16/2013 05/15/2013 Inactive Zetia 10 mg tablet RxNorm: 725851 1 Tablet(s) PO daily 05/16/2013 09/12/2013 Inactive Carafate 100 mg/mL Oral Susp RxNorm: 939849 10 Milliliter(s) PO QID 05/10/2013 10/30/2015 Inactive dispense one month supply Flomax 0.4 mg capsule RxNorm: 507410 2 Capsule(s) PO daily 05/10/2013 06/04/2013 Inactive Carafate 100 mg/mL Oral Susp RxNorm: 722502 10 Milliliter(s) PO QID 02/23/2013 04/23/2013 Inactive dispense one month supply gabapentin 100 mg capsule RxNorm: 289164 1 Capsule(s) PO daily one at bedtime and one up to three times daily as needed for nerve pain in leg 01/16/2013 05/09/2013 Inactive gabapentin 100 mg capsule RxNorm: 897759 1 Capsule(s) PO daily one at bedtime and one up to three times daily as needed for nerve pain in leg 01/12/2013 01/15/2013 Inactive warfarin 3 mg tablet RxNorm: 006423 Tablet(s) PO 12/05/2012 10/11/2013 Inactive one tue thur sat4.5 mg mon wedd lisinopril 10 mg tablet RxNorm: 537778 2 Tablet(s) PO daily 11/30/2012 06/27/2013 Inactive gabapentin 100 mg capsule RxNorm: 186397 1 Capsule(s) PO Q8 PRN one at bedtime and one up to three times daily as needed for nerve pain in leg 11/30/2012 01/11/2013 Inactive Coreg 3.125 mg tablet RxNorm: 409120 1 Tablet(s) PO BID 11/09/2012 01/07/2013 Inactive lisinopril 10 mg tablet RxNorm: 148667 1.5 Tablet(s) PO daily 11/09/2012 11/29/2012 Inactive Co Q-10 oral RxNorm: 49700 oral No Start Date Active Coreg 12.5 mg tablet RxNorm: 469427 1 Tablet(s) PO BID No Start Date Active lisinopril 20 mg tablet RxNorm: 627881 1 Tablet(s) PO BID No Start Date Active Voltaren 1 % topical gel RxNorm: 029457 1 Application TOP BID as needed No Start Date 03/08/2017 Inactive warfarin 3 mg tablet RxNorm: 598012 Tablet(s) PO No Start Date 12/04/2012 Inactive one tue thur sat4.5 mg mon frid Flomax 0.4 mg capsule RxNorm: 428313 1 Capsule(s) PO daily No Start Date 05/09/2013 Inactive niacin 500 mg tablet RxNorm: 658625 1 Tablet(s) PO daily No Start Date 03/01/2016 Inactive Medication Administered Medication Codes Instructions Start Date Status Kenalog 40 mg/mL suspension for injection RxNorm: 8815121 Milliliter 10/31/2015 No longer Active Immunizations No Immunization data Assessments Condition Codes Effective Dates Pain in joints of right hand ICD-10: M25.541 ICD-9: 719.44 02/24/2017 Pain in right elbow ICD-10: M25.521 ICD-9: 719.42 02/24/2017 Other fatigue ICD-10: R53.83 ICD-9: 780.79 02/24/2017 Other technician terminal and repeater (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 ICD-10: Z79.899 ICD-9: V58.69 [...] sinusitis ICD-9: 461.0 11/29/2013 ESSENTIAL HYPERTENSION SNOMED: 89330734 ICD-9: 401.9 11/10/2013 Encounter for long-term (current) [...] Crqnt CRP 0.2 mg/dl 02/24/2017 Comp Metabolic Seh155 NA 139 mEq/L 02/24/2017 Comp Metabolic Ztc560 K 3.9 mEq/L 02/24/2017 Comp Metabolic Moc992 CL 105 mEq/L 02/24/2017 Comp Metabolic Bck931 CO2 27.0 mEq/L 02/24/2017 Comp Metabolic Ziq006 ANION GAP 11 02/24/2017 Comp Metabolic Yit687 GLUCOSE 93 mg/dL 02/24/2017 Comp Metabolic Ynz164 Creat 1.1 mg/dL 02/24/2017 Comp Metabolic Zgk280 eGFR 73 ml/min/1.73m2 02/24/2017 Comp Metabolic Sym112 BUN 14 mg/dL 02/24/2017 Comp Metabolic Eoa422 B/C Ratio 13.1 Ratio 02/24/2017 Comp Metabolic Mrt910 CALCIUM 8.4 mg/dL 02/24/2017 Comp Metabolic Yrj242 ALK PHOS 89 U/L 02/24/2017 Comp Metabolic Hhz677 AST(SGOT) 18 U/L 02/24/2017 Comp Metabolic Zui347 ALT(SGPT) 21 U/L 02/24/2017 Comp Metabolic Lbt720 BILI T 0.5 mg/dL 02/24/2017 Comp Metabolic Qzr756 ALBUMIN 3.8 g/dL 02/24/2017 Comp Metabolic Qyp863 TPRO 6.5 g/dL 02/24/2017 Comp Metabolic Zhw181 GLOB 2.7 g/dL 02/24/2017 Comp Metabolic Izp857 A/G Ratio 1.4 Ratio 02/24/2017 Comp Metabolic Fdb346 Osmo 278 mOsmo 02/24/2017 Sed Rate Ord21 ESR 25 mm/hr 02/24/2017 Pt Fnk9934 PT 31.7 seconds 02/24/2017 Pt Sta8496 INR 3.3 02/24/2017 Pt Oxa2316 Low Intensity - 1.5-2.0 02/24/2017 Pt Rcp4850 Mod intensity - 2.0-3.0 02/24/2017 Pt Xsb2145 Hi intensity - 3.0-4.0 02/24/2017 Cbc With [...] 29.6 pg 02/24/2017 Cbc With Differential Ord2 [place]lin% 9.7 % 02/24/2017 Cbc With Differential Ord2 [...] 2.62 K/ul 02/24/2017 Cbc With Differential Ord2 [place] ABS# 0.8 K/ul 02/24/2017 Cbc With Differential Ord2 Eos ABS# 0.2 K/ul 02/24/2017 Cbc With Differential Ord2 Baso ABS# 0.1 K/ul 02/24/2017 Pt Hsj2873 PT 22.4 seconds 12/28/2016 Pt Hfk9917 INR 2.1 12/28/2016 Pt Mqs5986 Low Intensity - 1.5-2.0 12/28/2016 Pt Gvg7818 Mod intensity - 2.0-3.0 12/28/2016 Pt Nmb1939 Hi intensity - 3.0-4.0 12/28/2016 Pt Tlg1099 PT 30.2 seconds 11/26/2016 Pt Tyx5618 INR 3.1 11/26/2016 Pt Cwh1188 Low Intensity - 1.5-2.0 11/26/2016 Pt Iss7052 Mod intensity - 2.0-3.0 11/26/2016 Pt Zbp9168 Hi intensity - 3.0-4.0 11/26/2016 Pt Yap6510 PT 34.3 seconds 11/20/2016 Pt Ftm1061 INR 3.7 11/20/2016 Pt Zet4513 Low Intensity - 1.5-2.0 11/20/2016 Pt Sry3987 Mod intensity - 2.0-3.0 11/20/2016 Pt Suo6775 Hi intensity - 3.0-4.0 11/20/2016 Pt Bwj5443 PT 29.0 seconds 07/14/2016 Pt Nkl8006 INR 2.9 07/14/2016 Pt Cgw9818 Low Intensity - 1.5-2.0 07/14/2016 Pt Yun6159 Mod intensity - 2.0-3.0 07/14/2016 Pt Rvp2479 Hi intensity - 3.0-4.0 07/14/2016 Lipid Ord30 CHOL 236 mg/dL 07/14/2016 Lipid Ord30 HDL 36.0 mg/dl 07/14/2016 Lipid Ord30 TRIG 406 mg/dL 07/14/2016 Lipid Ord30 LDL Unable to calculate Due to elevated triglycerides mg/dL 07/14/2016 Lipid Ord30 C/HDL 6.6 Ratio 07/14/2016 Pt Azo4143 PT 30.0 seconds 03/02/2016 Pt Mqt2884 INR 3.1 03/02/2016 Pt Wbh1649 Low Intensity - 1.5-2.0 03/02/2016 Pt Sjk4306 Mod intensity - 2.0-3.0 03/02/2016 Pt Hiz9705 Hi intensity - 3.0-4.0 03/02/2016 %Hba1C Qkm071 % HbA1c 32823- 6 6.0 % 03/02/2016 %Hba1C Qqa928 Gluc Ave 126 mg/dL 03/02/2016 Tsh Ord6 hTSH II 0.68 uIU/mL 03/02/2016 Comp Metabolic Ead056 NA 140 mEq/L 03/02/2016 Comp Metabolic Lut129 K 4.1 mEq/L 03/02/2016 Comp Metabolic Hlv425 CL 105 mEq/L 03/02/2016 Comp Metabolic Nxg646 CO2 29.0 mEq/L 03/02/2016 Comp Metabolic Yrr320 ANION GAP 10 03/02/2016 Comp Metabolic Ttd056 GLUCOSE 104 mg/dL 03/02/2016 Comp Metabolic Uuk520 Creat 1.0 mg/dL 03/02/2016 Comp Metabolic Kvd361 eGFR 77 ml/min/1.73m2 03/02/2016 Comp Metabolic Rzq846 BUN 15 mg/dL 03/02/2016 Comp Metabolic Gul753 B/C Ratio 14.7 Ratio 03/02/2016 Comp Metabolic Pbg838 CALCIUM 8.9 mg/dL 03/02/2016 Comp Metabolic Cwd977 ALK PHOS 84 U/L 03/02/2016 Comp Metabolic Jtx217 AST(SGOT) 16 U/L 03/02/2016 Comp Metabolic Vyb518 ALT(SGPT) 17 U/L 03/02/2016 Comp Metabolic Wxq509 BILI T 0.5 mg/dL 03/02/2016 Comp Metabolic Fky025 ALBUMIN 4.0 g/dL 03/02/2016 Comp Metabolic Ejb556 TPRO 6.6 g/dL 03/02/2016 Comp Metabolic Vmh025 GLOB 2.6 g/dL 03/02/2016 Comp Metabolic Wco045 A/G Ratio 1.5 Ratio 03/02/2016 Comp Metabolic Ykb544 Osmo 281 mOsmo 03/02/2016 Cbc With Differential [...] 28.4 % 03/02/2016 Cbc With Differential Ord2 [place]% 8.1 % 03/02/2016 Cbc With Differential Ord2 [...] 2.29 K/ul 03/02/2016 Cbc With Differential Ord2 [place] ABS# 0.7 K/ul 03/02/2016 Cbc With Differential [...] 85.0 fl 10/31/2015 Cbc With Differential Ord2 MCH 28.8 pg 10/31/2015 Cbc With Differential Ord2 [place]% 12.7 % 10/31/2015 Cbc With Differential Ord2 MCHC 34.0 pg 10/31/2015 Cbc With Differential Ord2 Eos% 1.4 % 10/31/2015 Cbc With Differential Ord2 Baso% 0.6 % 10/31/2015 Cbc With Differential Ord2 PLT 222 K/ul 10/31/2015 Cbc With Differential Ord2 RDW 14.4 % 10/31/2015 Cbc With Differential Ord2 Neut ABS# 3.07 K/ul 10/31/2015 Cbc With Differential Ord2 Lymph ABS# 1.31 K/ul 10/31/2015 Cbc With Differential Ord2 [place] ABS# 0.7 K/ul 10/31/2015 Cbc With Differential [...] hTSH II 0.88 uIU/mL 10/31/2015 Comp Metabolic Une386 NA 135 mEq/L 10/31/2015 Comp Metabolic Rsx640 K 4.2 mEq/L 10/31/2015 Comp Metabolic Thw550 CL 99 mEq/L 10/31/2015 Comp Metabolic Tqe852 CO2 28.0 mEq/L 10/31/2015 Comp Metabolic Zel983 ANION GAP 12 10/31/2015 Comp Metabolic Guk171 GLUCOSE 107 mg/dL 10/31/2015 Comp Metabolic Zvv968 Creat 1.2 mg/dL 10/31/2015 Comp Metabolic Gnr673 eGFR 63 ml/min/1.73m2 10/31/2015 Comp Metabolic Opj103 BUN 12 mg/dL 10/31/2015 Comp Metabolic Him967 B/C Ratio 9.9 Ratio 10/31/2015 Comp Metabolic Xko229 CALCIUM 8.4 mg/dL 10/31/2015 Comp Metabolic Fss972 ALK PHOS 134 U/L 10/31/2015 Comp Metabolic Ajm288 AST(SGOT) 20 U/L 10/31/2015 Comp Metabolic Xtp689 ALT(SGPT) 16 U/L 10/31/2015 Comp Metabolic Ulc202 BILI T 0.4 mg/dL 10/31/2015 Comp Metabolic Pjq376 ALBUMIN 4.2 g/dL 10/31/2015 Comp Metabolic Pfn927 TPRO 7.2 g/dL 10/31/2015 Comp Metabolic Soh488 GLOB 3.1 g/dL 10/31/2015 Comp Metabolic Uyj132 A/G Ratio 1.4 Ratio 10/31/2015 Comp Metabolic Ifq402 Osmo 270 mOsmo 10/31/2015 Total Psa Ord10 PSA 2.66 ng/mL 10/31/2015 %Hba1C Wzb769 % HbA1c 77501- 6 6.1 % 10/31/2015 %Hba1C Jfl745 Gluc Ave 128 mg/dL 10/31/2015 Pt Pcx6307 PT 26.4 seconds 10/31/2015 Pt Fld3546 INR 2.5 10/31/2015 Pt Tff8688 Low Intensity - 1.5-2.0 10/31/2015 Pt Bgg5455 Mod intensity - 2.0-3.0 10/31/2015 Pt Xkz7088 Hi intensity - 3.0-4.0 10/31/2015 TSH 9066859 TSH 0.819 uIU/ML 11/10/2013 PT/MC 2101303 PRO TIME 24.5 SEC 11/10/2013 PT/MC 3129343 INR MCMC 2.3 11/10/2013 GFR CALC 1468580 GFR AA >60 ML/MIN 11/10/2013 GFR CALC 6672946 GFR NON-AA >60 ML/MIN 11/10/2013 CBC 9277807 WBC 8.4 10e9/L 11/10/2013 CBC 8570741 RBC 5.24 10e12/L 11/10/2013 CBC 3761768 HGB 15.4 g/dL 11/10/2013 CBC 4430214 HCT DET 43.8 % 11/10/2013 CBC 0638403 MCV 83.6 fL 11/10/2013 CBC 7787956 MCH 29.4 pg 11/10/2013 CBC 1900939 MCHC 35.2 g/dL 11/10/2013 CBC 7976740 PLT 250 10e9/L 11/10/2013 CBC 0211842 MPV 11.1 fL 11/10/2013 CBC 6024724 OANH % 58.1 % 11/10/2013 CBC 3789298 LY % 28.5 % 11/10/2013 CBC 8257376 MON % 10.2 % 11/10/2013 CBC 0177218 EOS % 2.1 % 11/10/2013 CBC 4206050 BASO % 1.1 % 11/10/2013 CBC 5710885 RDW 13.3 % 11/10/2013 CBC 9537302 ABS OANH 4.88 10e9/L 11/10/2013 CBC 8202959 ABS LYMPH 2.39 10e9/L 11/10/2013 CBC 1981169 ABS MONO 0.86 10e9/L 11/10/2013 CBC 9484865 ABS EOS 0.18 10e9/L 11/10/2013 CBC 5270580 ABS BASO 0.09 10e9/L 11/10/2013 CBC 7490881 RDW-SD 40.7 fL 11/10/2013 CHEM 14 3190414 AST 17 U/L 11/10/2013 CHEM 14 20280331 ALT 17 IU/L 11/10/2013 CHEM 14 20280331 BUN 15 MG/DL 11/10/2013 CHEM 14 5300260 ALBUMIN 4.3 GM/DL 11/10/2013 CHEM 14 1294490 CHLORIDE 103 MMOL/L 11/10/2013 CHEM 14 3109140 BILI TOT 0.6 MG/DL 11/10/2013 CHEM 14 6929327 ALK PHOS 104 U/L 11/10/2013 CHEM 14 7112221 SODIUM 137 MMOL/L 11/10/2013 CHEM 14 5758964 CREATININE 1.08 MG/DL 11/10/2013 CHEM 14 2926906 CALCIUM 8.9 MG/DL 11/10/2013 CHEM 14 4500806 POTASSIUM 4.0 MMOL/L 11/10/2013 CHEM 14 9163074 PROT TOT 7.0 GM/DL 11/10/2013 CHEM 14 9253065 GLUCOSE 84 MG/DL 11/10/2013 CHEM 14 6402740 BICARB 28 MMOL/L 11/10/2013 CHEM 14 1340723 ANION GAP 6 MEQ/L 11/10/2013 Review of [...] Procedure Codes Date THER/PROPH/DIAG INJ SC/IM CPT-4: 02886Eakvzte 10/31/2015 TRIAMCINOLONE ACET INJ NOS CPT-4: X5388Apmcrkv 10/31/2015 ROUTINE VENIPUNCTURE CPT-4: 14181Yhxbwvq 11/10/2013 PRESCRIP TRANSMIT VIA ERX SY CPT-4: G1661Buhanyc 02/23/2013 PRESCRIP TRANSMIT VIA ERX SY CPT-4: B6190Fbussgj 11/30/2012 PRESCRIP TRANSMIT VIA ERX SY CPT-4: W0172Dsubjrp 11/09/2012 Vital Signs Date Vital 02/24/2017 Blood Pressure 1: 146/60 Code: 8480-6 BMI: 27.4 Code: 00918-9 Heart Rate 1: 61 bpm Height: 5'10" SpO2: 97% Weight: 191 lbs 05/07/2016 Blood Pressure 1: 146/66 Code: 8480-6 BMI: 26.3 Code: 83572-2 Heart Rate 1: 69 bpm Height: 5'10" SpO2: 97% Weight: 183 lbs 03/02/2016 Blood Pressure 1: 170/100 Code: 8480-6 Blood Pressure 1: 190/108 Code: 8480-6 BMI: 26.5 Code: 03971-0 Heart Rate 1: 76 bpm Height: 5'10" SpO2: 98% Weight: 185 lbs 10/31/2015 Blood Pressure 1: 126/86 Code: 8480-6 Blood Pressure 1: 142/90 Code: 8480-6 BMI: 26.8 Code: 12662-5 Heart Rate 1: 99 bpm Height: 5'10" SpO2: 95% Temperature: 37.0 (C) / 98.6 (F) Weight: 187 lbs 01/25/2014 Blood Pressure 1: 180/90 Code: 8480-6 BMI: 26.3 Code: 72850-4 Heart Rate 1: 76 bpm Height: 5'10" Temperature: 37.4 (C) / 99.3 (F) Weight: 183 lbs 11/29/2013 Blood Pressure 1: 164/82 Code: 8480-6 Heart Rate 1: 80 bpm Temperature: 37.1 (C) / 98.7 (F) Weight: 187 lbs 11/10/2013 Blood Pressure 1: 156/94 Code: 8480-6 Heart Rate 1: 72 bpm Weight: 186 lbs 05/10/2013 Blood Pressure 1: 134/78 Code: 8480-6 BMI: 25.7 Code: 26849-1 Heart Rate 1: 84 bpm Height: 5'10" Weight: 179 lbs 02/23/2013 Blood Pressure 1: 138/90 Code: 8480-6 BMI: 27.0 Code: 80051-8 Heart Rate 1: 88 bpm Height: 5'10" Temperature: 37.0 (C) / 98.6 (F) Weight: 188 lbs 01/12/2013 Blood Pressure 1: 136/78 Code: 8480-6 BMI: 26.7 Code: 81890-6 Heart Rate 1: 96 bpm Height: 5'10" Weight: 186 lbs 11/30/2012 Blood Pressure 1: 170/90 Code: 8480-6 BMI: 26.8 Code: 83009-7 Heart Rate 1: 80 bpm Height: 5'10" Weight: 187 lbs 11/09/2012 Blood Pressure 1: 178/84 Code: 8480-6 BMI: 26.5 Code: 11596-2 Heart Rate 1: 86 bpm Height: 5'10" [...] pain Quality recurrent 05/10/2013 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 PATIENT, LEVEL IV Diagnosis: Pain in left elbow[ICD10: M25.522] Diagnosis: Pain in right elbow[ICD10: M25.521] Diagnosis: Pain in joints of left hand[ICD10: M25.542] Diagnosis: Pain in joints of right hand[ICD10: M25.541] Diagnosis: Other fatigue[ICD10: R53.83] Diagnosis: Other mcfp (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[ICD10: Z79.899] Gayle Fajardo MD, [facility] CPT-4: 96685 02/24/2017 ([id number]) 73133 EST. PATIENT, LEVEL III Diagnosis: Essential (primary) hypertension[ICD10: I10] Jennifer Fajardo MD, [facility] CPT-4: 47216 05/07/2016 ([id number]) 78307 EST. PATIENT, LEVEL IV Diagnosis: Essential (primary) hypertension[ICD10: I10] Diagnosis: Impaired fasting glucose[ICD10: R73.01] Diagnosis: Other technician terminal and repeater (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[ICD10: Z79.899] Jennifer Fajardo MD, [facility] CPT-4: 12001 03/02/2016 ([id number]) 35350 EST. PATIENT, LEVEL IV Diagnosis: Essential (primary) hypertension[ICD10: I10] Diagnosis: Mixed hyperlipidemia[ICD10: E78.2] Diagnosis: Other mcfp (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[ICD10: Z79.899] Diagnosis: Impaired fasting glucose[ICD10: R73.01] Diagnosis: Acute recurrent maxillary sinusitis[ICD10: J01.01] Jennifer Fajardo MD, [facility] CPT-4: 95728 10/31/2015 ([id number]) 08710 EST. PATIENT, LEVEL III Diagnosis: CELLULITIS[ICD9: 682.9] Mahnaz Fajardo MD [facility] CPT-4: 17684 01/25/2014 ([id number]) 56160 EST. PATIENT, LEVEL III Diagnosis: Acute maxillary sinusitis[ICD9: 461.0] Diagnosis: Cough[ICD9: 786.2] Mahnaz Fajardo MD [facility] CPT-4: 72803 11/29/2013 ([id number]) 59039 EST. PATIENT, LEVEL III Diagnosis: ESSENTIAL HYPERTENSION[SNOMED: 05893818] Diagnosis: Encounter for long-term (current) use of other high-risk medications[ICD9: V58.69] Jennifer Fajardo MD [facility] CPT-4: 68566 11/10/2013 ([id number]) 79470 EST. PATIENT, LEVEL IV Diagnosis: ESSENTIAL HYPERTENSION[SNOMED: 23530617] Diagnosis: HYPERLIPIDEMIA[ICD9: 272.4] Mahnaz Fajardo MD [facility] CPT-4: 49293 05/10/2013 ([id number]) 46629 EST. PATIENT, LEVEL III Diagnosis: Esophageal reflux[ICD9: 530.81] Diagnosis: Sore throat[ICD9: 462] Diagnosis: Allergic rhinitis[ICD9: 477.9] Mahnaz Fajardo MD [facility] CPT-4: 03739 02/23/2013 ([id number]) 82279 EST. PATIENT, LEVEL III Diagnosis: ESSENTIAL HYPERTENSION[SNOMED: 53802306] Diagnosis: HYPERLIPIDEMIA[ICD9: 272.4] Mahnaz Fajardo MD [facility] CPT-4: 61300 01/12/2013 ([id number]) 11963 EST. 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 The patient is to call the office if the pain is worsening or does not improve. 02/24/2017 Appointment: Gayle Morris WPtel: [phone] [facility] (30 min) Complex 02/24/2017 Patient Education: Patient Medication Summary Completed 02/24/2017 Patient Education: Patient Medication Summary Completed 11/20/2016 Care Plan: Pt Pending 11/20/2016 Appointment: Jennifer Perez WPtel: [phone] [phone] (30 min) Complex 11/05/2016 Visit Plan: Hypertension - well controlled - continue with current medications, continue with no added salt diet. Pt has been encouraged to exercise daily.The pt has been advised to call the office if there are any acute concerns about change in blood pressure readings at home. 05/07/2016 Appointment: Jennifer Perez WPtel: [phone] [phone] (30 min) Complex 05/07/2016 Patient Education: Patient [...] 03/02/2016 Care Plan: Referral Order SNOMED-CT : [id number] Pending 03/02/2016 Visit Plan: Hypertension - well [...] of pressure. 01/25/2014 Appointment: Mahnaz Fajardo WPtel: [facility] [place] Other 01/25/2014 Patient Education: Patient Medication Summary Completed 01/25/2014 Appointment: Mahnaz Fajardo WPtel: [facility] [place] Sick 11/29/2013 Patient Education: Patient [...] concerns.Coumadin-check PT/INR 11/10/2013 Appointment: Jennifer Perez WPtel: [phone] [phone] Follow up 11/10/2013 Patient Education: Patient Medication Summary Completed 11/10/2013 Patient Education: Hypertension Completed 11/10/2013 Appointment: Mahnaz Fajardo WPtel: [facility] Follow up 11/08/2013 Visit Plan: [...] medications. 05/10/2013 Appointment: Mahnaz Fajardo WPtel: [facility] Follow up 05/10/2013 Patient Education: Patient Medication Summary Completed 05/10/2013 Patient Education: Hypertension Completed 05/10/2013 Appointment: Mahnaz Fajardo WPtel: [facility]5 [facility] Sick 02/24/2013 Visit Plan: Esophageal Reflux [...] one month. 01/12/2013 Appointment: Mahnaz Fajardo WPtel: [facility] Follow [facility] 01/12/2013 Patient Education: Patient Medication Summary Completed 01/12/2013 Patient Education: Hypertension Completed 01/12/2013 Appointment: Mahnaz Fajardo WPtel[phone] [facility] Follow up 01/11/2013 Visit Plan: Nerve pain [...] and to assure normal liver response to medications.[place] red Krill oil twice daily 11/30/2012 Appointment: Mahnaz Fajardo WPtel: [phone] [facility] Follow up 11/30/2012 Patient Education: Patient Medication [...] arthritis. 11/09/2012 Appointment: Mahnaz Fajardo WPtel: [phone] [facility] New Patient 11/09/2012 Patient Education: [...] improvement. Kenalog injection today in the office. [place] red Krill oil twice daily increase the [...] to assure normal liver response to medications. [place] [employer] oil twice daily . Hypertension [...]
--- OUTSIDE RECORDS SUMMARY | 2019-02-13 12:05 | XMS REPORT | CCD ---
Author Author [facility] Organization [facility] Address [address] [place] [address] Phone Care Team Providers Care Maintenance Coordinator Name Role Phone PP Unavailable CCM Unavailable Summary Purpose Interface Exchange Insurance Providers Payer name Policy type / Coverage type Covered libertarian ID Effective Begin Date Effective End Date WPS Medicare Part B Medicare Part B [id number] Unknown [employer] Medicare Part B [id number] Unknown Family history Mother Diagnosis Age At Onset Stroke Unknown Father Diagnosis Age At Onset Hypertension Unknown Sister Diagnosis Age At Onset Hypertension Unknown Social History Social History Element Codes Description Effective Dates Marital status Unknown 11/09/[address]: 8150881 Former smoker quit 1988 11/09/2012 Allergies, Adverse Reactions, Alerts Substance Reaction Codes Entered Date Inactivated Date Status ASPIRIN (TARTRAZINE ONLY) hives Unknown 11/09/2012 No Inactive Date Active Past Medical History Illness Codes Condition Status Onset Date Resolved Date Other fatigue ICD-9: 780.79 ICD-10: R53.83 Active 02/24/2017 Unknown Other halfway (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 ICD-9: V58.69 ICD-10: Z79.899 [...] ICD-9: 780.79 ICD-10: R53.83 02/24/2017 Active Other halfway (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 ICD-9: V58.69 ICD-10: Z79.899 [...] Instructions Voltaren 1 % topical gel RxNorm: 727394 1 Application TOP BID as needed 03/09/2017 No Stop Date Active lisinopril 20 mg tablet RxNorm: 987786 2 Tablet(s) PO BID 02/26/2017 02/20/2018 Active cyclobenzaprine 5 mg tablet RxNorm: 737281 1 Tablet(s) PO TID as needed muscle spasms 02/24/2017 02/28/2017 Inactive warfarin 3 mg tablet RxNorm: 489268 1 Tablet(s) PO daily 11/23/2016 No Stop Date Active lisinopril 20 mg tablet RxNorm: 299344 Take 2 tablets by mouth twice a day 09/22/2016 02/25/2017 Inactive - Ref: [id number] lisinopril 20 mg tablet RxNorm: 863515 1 Tablet(s) PO BID 05/07/2016 02/25/2017 Inactive First Attempt Coreg 25 mg tablet RxNorm: 932095 1 Tablet(s) PO BID 05/07/2016 02/23/[address] Reddy lisinopril 20 mg tablet RxNorm: 500728 1 Tablet(s) PO daily Take 2 tablets by mouth bid 05/07/2016 05/06/2016 Inactive First Attempt Flomax 0.4 mg capsule RxNorm: 798846 Take 2 capsules by mouth daily 03/15/2016 06/07/2017 Active - First Attempt lisinopril 20 mg tablet RxNorm: 077144 2 Tablet(s) PO BID Take 2 tablets by mouth bid 03/04/2016 05/06/2016 Inactive First Attempt lisinopril 20 mg tablet RxNorm: 285313 1 Tablet(s) PO BID Take 2 tablets by mouth daily 03/02/2016 03/03/2016 Inactive First Attempt Phenergan with Codeine Syrup RxNorm: 5 Milliliter(s) PO Q6 PRN 10/31/2015 No Stop Date Active Kenalog 40 mg/mL suspension for injection RxNorm: 4606502 Milliliter(s) Inj 10/31/2015 10/31/2015 Inactive warfarin 3 mg tablet RxNorm: 651284 Tablet(s) Take 1 tablet by mouth on tues,wed,thur,sat and sun and 1 and 1/2 tablets by mouth on mon and wed10/31/2015 07/23/2016 Inactive Zithromax Z-[place] 250 mg tablet RxNorm: 620364 1 Tablet(s) PO UD 10/31/2015 11/04/2015 Inactive zpack Coreg 3.125 mg tablet RxNorm: 883814 1 Tablet(s) PO BID 06/19/2015 05/06/2016 Inactive warfarin 3 mg tablet RxNorm: 668710 Take 1 tablet by mouth on tues,wed,thur,sat and sun and 1 and 1/2 tablets by mouth on mon and wed06/06/2015 06/05/2015 Inactive 2nd Attempt warfarin 3 mg tablet RxNorm: 646032 Tablet(s) Take 1 tablet by mouth on tues,wed,thur,sat and sun and 1 and 1/2 tablets by mouth on mon and wed06/06/2015 10/30/2015 Inactive 2nd Attempt Flomax 0.4 mg capsule RxNorm: 740588 Take 2 capsules by mouth daily 04/29/2015 01/23/2016 Inactive First Attempt lisinopril 10 mg tablet RxNorm: 211571 Take 2 tablets by mouth daily 04/29/2015 01/23/2016 Inactive First Attempt warfarin 3 mg tablet RxNorm: 801166 one wed sat sun 4.5mg wednesday Tablet(s) PO daily 07/25/2014 06/05/2015 Inactive Flomax 0.4 mg capsule RxNorm: 071141 2 Capsule(s) PO daily 07/25/2014 04/28/2015 Inactive lisinopril 10 mg tablet RxNorm: 994316 2 Tablet(s) PO daily 07/25/2014 04/28/2015 Inactive Coreg 3.125 mg tablet RxNorm: 160724 1 Tablet(s) PO BID 07/25/2014 06/18/2015 Inactive cephalexin 500 mg capsule RxNorm: 067761 1 Capsule(s) PO QID 11/29/2013 10/30/2015 Inactive lisinopril 20 mg tablet RxNorm: 540092 1 Tablet(s) PO BID 11/10/2013 03/09/2014 Inactive Flomax 0.4 mg capsule RxNorm: 544158 2 Capsule(s) PO daily 10/12/2013 07/24/2014 Inactive Coreg 3.125 mg tablet RxNorm: 661377 1 Tablet(s) PO BID 10/12/2013 07/24/2014 Inactive lisinopril 10 mg tablet RxNorm: 964306 2 Tablet(s) PO daily 10/12/2013 11/09/2013 Inactive warfarin 3 mg tablet RxNorm: 135394 one wed sat sun 4.5mg wednesday Tablet(s) PO daily 10/12/2013 07/24/2014 Inactive o Flomax 0.4 mg capsule RxNorm: 460473 2 Capsule(s) PO daily 06/05/2013 10/11/2013 Inactive Zetia 10 mg tablet RxNorm: 515859 1 Tablet(s) PO daily 05/16/2013 05/15/2013 Inactive Zetia 10 mg tablet RxNorm: 619439 1 Tablet(s) PO daily 05/16/2013 09/12/2013 Inactive Carafate 100 mg/mL Oral Susp RxNorm: 146287 10 Milliliter(s) PO QID 05/10/2013 10/30/2015 Inactive dispense one month supply Flomax 0.4 mg capsule RxNorm: 266852 2 Capsule(s) PO daily 05/10/2013 06/04/2013 Inactive Carafate 100 mg/mL Oral Susp RxNorm: 961625 10 Milliliter(s) PO QID 02/23/2013 04/23/2013 Inactive dispense one month supply gabapentin 100 mg capsule RxNorm: 465575 1 Capsule(s) PO daily one at bedtime and one up to three times daily as needed for nerve pain in leg 01/16/2013 05/09/2013 Inactive gabapentin 100 mg capsule RxNorm: 971197 1 Capsule(s) PO daily one at bedtime and one up to three times daily as needed for nerve pain in leg 01/12/2013 01/15/2013 Inactive warfarin 3 mg tablet RxNorm: 696026 Tablet(s) PO 12/05/2012 10/11/2013 Inactive one tue thur sat4.5 mg mon wedd lisinopril 10 mg tablet RxNorm: 039518 2 Tablet(s) PO daily 11/30/2012 06/27/2013 Inactive gabapentin 100 mg capsule RxNorm: 557533 1 Capsule(s) PO Q8 PRN one at bedtime and one up to three times daily as needed for nerve pain in leg 11/30/2012 01/11/2013 Inactive Coreg 3.125 mg tablet RxNorm: 816098 1 Tablet(s) PO BID 11/09/2012 01/07/2013 Inactive lisinopril 10 mg tablet RxNorm: 146887 1.5 Tablet(s) PO daily 11/09/2012 11/29/2012 Inactive Co Q-10 oral RxNorm: 24166 oral No Start Date Active Coreg 12.5 mg tablet RxNorm: 639719 1 Tablet(s) PO BID No Start Date Active lisinopril 20 mg tablet RxNorm: 278208 1 Tablet(s) PO BID No Start Date Active Voltaren 1 % topical gel RxNorm: 870980 1 Application TOP BID as needed No Start Date 03/08/2017 Inactive warfarin 3 mg tablet RxNorm: 795942 Tablet(s) PO No Start Date 12/04/2012 Inactive one tue thur sat4.5 mg mon frid Flomax 0.4 mg capsule RxNorm: 953069 1 Capsule(s) PO daily No Start Date 05/09/2013 Inactive niacin 500 mg tablet RxNorm: 675770 1 Tablet(s) PO daily No Start Date 03/01/2016 Inactive Medication Administered Medication Codes Instructions Start Date Status Kenalog 40 mg/mL suspension for injection RxNorm: 1968475 Milliliter 10/31/2015 No longer Active Immunizations No Immunization data Assessments Condition Codes Effective Dates Pain in joints of right hand ICD-10: M25.541 ICD-9: 719.44 02/24/2017 Pain in right elbow ICD-10: M25.521 ICD-9: 719.42 02/24/2017 Other fatigue ICD-10: R53.83 ICD-9: 780.79 02/24/2017 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 technician (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 ICD-10: Z79.899 ICD-9: V58.69 [...] sinusitis ICD-9: 461.0 11/29/2013 ESSENTIAL HYPERTENSION SNOMED: 16190874 ICD-9: 401.9 11/10/2013 Encounter for long-term (current) [...] Crqnt CRP 0.2 mg/dl 02/24/2017 Comp Metabolic Krk951 NA 139 mEq/L 02/24/2017 Comp Metabolic Vwb105 K 3.9 mEq/L 02/24/2017 Comp Metabolic Wbj972 CL 105 mEq/L 02/24/2017 Comp Metabolic Sqk624 CO2 27.0 mEq/L 02/24/2017 Comp Metabolic Wvd842 ANION GAP 11 02/24/2017 Comp Metabolic Ysa252 GLUCOSE 93 mg/dL 02/24/2017 Comp Metabolic Npn267 Creat 1.1 mg/dL 02/24/2017 Comp Metabolic Qbb268 eGFR 73 ml/min/1.73m2 02/24/2017 Comp Metabolic Tsn750 BUN 14 mg/dL 02/24/2017 Comp Metabolic Opd384 B/C Ratio 13.1 Ratio 02/24/2017 Comp Metabolic Fea072 CALCIUM 8.4 mg/dL 02/24/2017 Comp Metabolic Zwe214 ALK PHOS 89 U/L 02/24/2017 Comp Metabolic Tis228 AST(SGOT) 18 U/L 02/24/2017 Comp Metabolic Xco664 ALT(SGPT) 21 U/L 02/24/2017 Comp Metabolic Bna275 BILI T 0.5 mg/dL 02/24/2017 Comp Metabolic Voe788 ALBUMIN 3.8 g/dL 02/24/2017 Comp Metabolic Xak280 TPRO 6.5 g/dL 02/24/2017 Comp Metabolic Orr334 GLOB 2.7 g/dL 02/24/2017 Comp Metabolic Nbt692 A/G Ratio 1.4 Ratio 02/24/2017 Comp Metabolic Gfu941 Osmo 278 mOsmo 02/24/2017 Sed Rate Ord21 ESR 25 mm/hr 02/24/2017 Pt Ryg9338 PT 31.7 seconds 02/24/2017 Pt Vbl4270 INR 3.3 02/24/2017 Pt Sli9755 Low Intensity - 1.5-2.0 02/24/2017 Pt Zjl2526 Mod intensity - 2.0-3.0 02/24/2017 Pt Xnu3886 Hi intensity - 3.0-4.0 02/24/2017 Cbc With [...] 29.6 pg 02/24/2017 Cbc With Differential Ord2 [place]% 9.7 % 02/24/2017 Cbc With Differential Ord2 [...] 2.62 K/ul 02/24/2017 Cbc With Differential Ord2 [place] ABS# 0.8 K/ul 02/24/2017 Cbc With Differential Ord2 Eos ABS# 0.2 K/ul 02/24/2017 Cbc With Differential Ord2 Baso ABS# 0.1 K/ul 02/24/2017 Pt Cbk0471 PT 22.4 seconds 12/28/2016 Pt Nxf2165 INR 2.1 12/28/2016 Pt Eze6313 Low Intensity - 1.5-2.0 12/28/2016 Pt Cuw2849 Mod intensity - 2.0-3.0 12/28/2016 Pt Akb8309 Hi intensity - 3.0-4.0 12/28/2016 Pt Qbe4298 PT 30.2 seconds 11/26/2016 Pt Vxa2614 INR 3.1 11/26/2016 Pt Smk0247 Low Intensity - 1.5-2.0 11/26/2016 Pt Fql0556 Mod intensity - 2.0-3.0 11/26/2016 Pt Zpa5259 Hi intensity - 3.0-4.0 11/26/2016 Pt Luy4543 PT 34.3 seconds 11/20/2016 Pt Pcm2533 INR 3.7 11/20/2016 Pt Hnm7934 Low Intensity - 1.5-2.0 11/20/2016 Pt Szv8229 Mod intensity - 2.0-3.0 11/20/2016 Pt Ibo6709 Hi intensity - 3.0-4.0 11/20/2016 Pt Ecp4403 PT 29.0 seconds 07/14/2016 Pt Foq8949 INR 2.9 07/14/2016 Pt Rza1164 Low Intensity - 1.5-2.0 07/14/2016 Pt Zqj5715 Mod intensity - 2.0-3.0 07/14/2016 Pt Xfd6950 Hi intensity - 3.0-4.0 07/14/2016 Lipid Ord30 CHOL 236 mg/dL 07/14/2016 Lipid Ord30 HDL 36.0 mg/dl 07/14/2016 Lipid Ord30 TRIG 406 mg/dL 07/14/2016 Lipid Ord30 LDL Unable to calculate Due to elevated triglycerides mg/dL 07/14/2016 Lipid Ord30 C/HDL 6.6 Ratio 07/14/2016 Pt Rca8551 PT 30.0 seconds 03/02/2016 Pt Znm5831 INR 3.1 03/02/2016 Pt Nix7749 Low Intensity - 1.5-2.0 03/02/2016 Pt Zcw7954 Mod intensity - 2.0-3.0 03/02/2016 Pt Mow5146 Hi intensity - 3.0-4.0 03/02/2016 %Hba1C Tfo974 % HbA1c 15000- 6 6.0 % 03/02/2016 %Hba1C Tdu243 Gluc Ave 126 mg/dL 03/02/2016 Tsh Ord6 hTSH II 0.68 uIU/mL 03/02/2016 Comp Metabolic Woi842 NA 140 mEq/L 03/02/2016 Comp Metabolic Kar343 K 4.1 mEq/L 03/02/2016 Comp Metabolic Npj634 CL 105 mEq/L 03/02/2016 Comp Metabolic Rlx524 CO2 29.0 mEq/L 03/02/2016 Comp Metabolic Inx481 ANION GAP 10 03/02/2016 Comp Metabolic Kbj685 GLUCOSE 104 mg/dL 03/02/2016 Comp Metabolic Umq608 Creat 1.0 mg/dL 03/02/2016 Comp Metabolic Qtw568 eGFR 77 ml/min/1.73m2 03/02/2016 Comp Metabolic Dij569 BUN 15 mg/dL 03/02/2016 Comp Metabolic Ijd985 B/C Ratio 14.7 Ratio 03/02/2016 Comp Metabolic Mtr438 CALCIUM 8.9 mg/dL 03/02/2016 Comp Metabolic Ocl520 ALK PHOS 84 U/L 03/02/2016 Comp Metabolic Nzn129 AST(SGOT) 16 U/L 03/02/2016 Comp Metabolic Zvi065 ALT(SGPT) 17 U/L 03/02/2016 Comp Metabolic Wdc217 BILI T 0.5 mg/dL 03/02/2016 Comp Metabolic Gpb895 ALBUMIN 4.0 g/dL 03/02/2016 Comp Metabolic Ioj250 TPRO 6.6 g/dL 03/02/2016 Comp Metabolic Cwb949 GLOB 2.6 g/dL 03/02/2016 Comp Metabolic Ddx824 A/G Ratio 1.5 Ratio 03/02/2016 Comp Metabolic Ppt827 Osmo 281 mOsmo 03/02/2016 Cbc With Differential [...] 29.3 pg 03/02/2016 Cbc With Differential Ord2 [place]% 8.1 % 03/02/2016 Cbc With Differential Ord2 [...] 2.29 K/ul 03/02/2016 Cbc With Differential Ord2 [place] ABS# 0.7 K/ul 03/02/2016 Cbc With Differential [...] 48.0 % 10/31/2015 Cbc With Differential Ord2 MCV 85.0 fl 10/31/2015 Cbc With Differential Ord2 Lymph% 25.5 % 10/31/2015 Cbc With Differential Ord2 MCH 28.8 pg 10/31/2015 Cbc With Differential Ord2 [place]% 12.7 % 10/31/2015 Cbc With Differential Ord2 [...] 1.31 K/ul 10/31/2015 Cbc With Differential Ord2 [place] ABS# 0.7 K/ul 10/31/2015 Cbc With Differential [...] hTSH II 0.88 uIU/mL 10/31/2015 Comp Metabolic Esc361 NA 135 mEq/L 10/31/2015 Comp Metabolic Ava031 K 4.2 mEq/L 10/31/2015 Comp Metabolic Fbs007 CL 99 mEq/L 10/31/2015 Comp Metabolic Mqm446 CO2 28.0 mEq/L 10/31/2015 Comp Metabolic Dna670 ANION GAP 12 10/31/2015 Comp Metabolic Hfd766 GLUCOSE 107 mg/dL 10/31/2015 Comp Metabolic Cwz795 Creat 1.2 mg/dL 10/31/2015 Comp Metabolic Loh859 eGFR 63 ml/min/1.73m2 10/31/2015 Comp Metabolic Jyj760 BUN 12 mg/dL 10/31/2015 Comp Metabolic Ane737 B/C Ratio 9.9 Ratio 10/31/2015 Comp Metabolic Aky850 CALCIUM 8.4 mg/dL 10/31/2015 Comp Metabolic Qft081 ALK PHOS 134 U/L 10/31/2015 Comp Metabolic Jvk488 AST(SGOT) 20 U/L 10/31/2015 Comp Metabolic Yij428 ALT(SGPT) 16 U/L 10/31/2015 Comp Metabolic Ueq454 BILI T 0.4 mg/dL 10/31/2015 Comp Metabolic Rrn579 ALBUMIN 4.2 g/dL 10/31/2015 Comp Metabolic Xaq370 TPRO 7.2 g/dL 10/31/2015 Comp Metabolic Vzc221 GLOB 3.1 g/dL 10/31/2015 Comp Metabolic Wsb858 A/G Ratio 1.4 Ratio 10/31/2015 Comp Metabolic Hnu616 Osmo 270 mOsmo 10/31/2015 Total Psa Ord10 PSA 2.66 ng/mL 10/31/2015 %Hba1C Bys283 % HbA1c 18604- 6 6.1 % 10/31/2015 %Hba1C Ysx619 Gluc Ave 128 mg/dL 10/31/2015 Pt Hnu7977 PT 26.4 seconds 10/31/2015 Pt Ibr0517 INR 2.5 10/31/2015 Pt Hsj6152 Low Intensity - 1.5-2.0 10/31/2015 Pt Nia3313 Mod intensity - 2.0-3.0 10/31/2015 Pt Wbi6096 Hi intensity - 3.0-4.0 10/31/2015 TSH 0362816 TSH 0.819 uIU/ML 11/10/2013 PT/MC 9696679 PRO TIME 24.5 SEC 11/10/2013 PT/MC 4961430 INR MCMC 2.3 11/10/2013 GFR CALC 8175731 GFR AA >60 ML/MIN 11/10/2013 GFR CALC 7517170 GFR NON-AA >60 ML/MIN 11/10/2013 CBC 0910097 WBC 8.4 10e9/L 11/10/2013 CBC 1115367 RBC 5.24 10e12/L 11/10/2013 CBC 9295714 HGB 15.4 g/dL 11/10/2013 CBC 7555062 HCT DET 43.8 % 11/10/2013 CBC 1462319 MCV 83.6 fL 11/10/2013 CBC 3130096 MCH 29.4 pg 11/10/2013 CBC 2655615 MCHC 35.2 g/dL 11/10/2013 CBC 0926417 PLT 250 10e9/L 11/10/2013 CBC 8986527 MPV 11.1 fL 11/10/2013 CBC 7736512 OANH % 58.1 % 11/10/2013 CBC 2294647 LY % 28.5 % 11/10/2013 CBC 6349868 MON % 10.2 % 11/10/2013 CBC 5657943 EOS % 2.1 % 11/10/2013 CBC 1592259 BASO % 1.1 % 11/10/2013 CBC 5717171 RDW 13.3 % 11/10/2013 CBC 2902023 ABS OANH 4.88 10e9/L 11/10/2013 CBC 4107161 ABS LYMPH 2.39 10e9/L 11/10/2013 CBC 3231474 ABS MONO 0.86 10e9/L 11/10/2013 CBC 6964767 ABS EOS 0.18 10e9/L 11/10/2013 CBC 6911641 ABS BASO 0.09 10e9/L 11/10/2013 CBC 5955374 RDW-SD 40.7 fL 11/10/2013 CHEM 14 5242148 AST 17 U/L 11/10/2013 CHEM 14 20280331 ALT 17 IU/L 11/10/2013 CHEM 14 20280331 BUN 15 MG/DL 11/10/2013 CHEM 14 3827685 ALBUMIN 4.3 GM/DL 11/10/2013 CHEM 14 9166108 CHLORIDE 103 MMOL/L 11/10/2013 CHEM 14 4609585 BILI TOT 0.6 MG/DL 11/10/2013 CHEM 14 3494418 ALK PHOS 104 U/L 11/10/2013 CHEM 14 2962769 SODIUM 137 MMOL/L 11/10/2013 CHEM 14 5404285 CREATININE 1.08 MG/DL 11/10/2013 CHEM 14 2346518 CALCIUM 8.9 MG/DL 11/10/2013 CHEM 14 1921564 POTASSIUM 4.0 MMOL/L 11/10/2013 CHEM 14 2744864 PROT TOT 7.0 GM/DL 11/10/2013 CHEM 14 3446379 GLUCOSE 84 MG/DL 11/10/2013 CHEM 14 1786095 BICARB 28 MMOL/L 11/10/2013 CHEM 14 5131607 ANION GAP 6 MEQ/L 11/10/2013 Review of [...] Procedure Codes Date THER/PROPH/DIAG INJ SC/IM CPT-4: 87368Oscqqgl 10/31/2015 TRIAMCINOLONE ACET INJ NOS CPT-4: Z0897Qvjcozg 10/31/2015 ROUTINE VENIPUNCTURE CPT-4: 59617Veehtkh 11/10/2013 PRESCRIP TRANSMIT VIA ERX SY CPT-4: P8211Mbtahyr 02/23/2013 PRESCRIP TRANSMIT VIA ERX SY CPT-4: E8808Tagtnjs 11/30/2012 PRESCRIP TRANSMIT VIA ERX SY CPT-4: E4639Fdtlecg 11/09/2012 Vital Signs Date Vital 02/24/2017 Blood Pressure 1: 146/60 Code: 8480-6 BMI: 27.4 Code: 90326-6 Heart Rate 1: 61 bpm Height: 5'10" SpO2: 97% Weight: 191 lbs 05/07/2016 Blood Pressure 1: 146/66 Code: 8480-6 BMI: 26.3 Code: 66466-4 Heart Rate 1: 69 bpm Height: 5'10" SpO2: 97% Weight: 183 lbs 03/02/2016 Blood Pressure 1: 190/108 Code: 8480-6 Blood Pressure 1: 170/100 Code: 8480-6 BMI: 26.5 Code: 56910-9 Heart Rate 1: 76 bpm Height: 5'10" SpO2: 98% Weight: 185 lbs 10/31/2015 Blood Pressure 1: 142/90 Code: 8480-6 Blood Pressure 1: 126/86 Code: 8480-6 BMI: 26.8 Code: 03241-9 Heart Rate 1: 99 bpm Height: 5'10" SpO2: 95% Temperature: 37.0 (C) / 98.6 (F) Weight: 187 lbs 01/25/2014 Blood Pressure 1: 180/90 Code: 8480-6 BMI: 26.3 Code: 20829-8 Heart Rate 1: 76 bpm Height: 5'10" Temperature: 37.4 (C) / 99.3 (F) Weight: 183 lbs 11/29/2013 Blood Pressure 1: 164/82 Code: 8480-6 Heart Rate 1: 80 bpm Temperature: 37.1 (C) / 98.7 (F) Weight: 187 lbs 11/10/2013 Blood Pressure 1: 156/94 Code: 8480-6 Heart Rate 1: 72 bpm Weight: 186 lbs 05/10/2013 Blood Pressure 1: 134/78 Code: 8480-6 BMI: 25.7 Code: 96118-1 Heart Rate 1: 84 bpm Height: 5'10" Weight: 179 lbs 02/23/2013 Blood Pressure 1: 138/90 Code: 8480-6 BMI: 27.0 Code: 48015-3 Heart Rate 1: 88 bpm Height: 5'10" Temperature: 37.0 (C) / 98.6 (F) Weight: 188 lbs 01/12/2013 Blood Pressure 1: 136/78 Code: 8480-6 BMI: 26.7 Code: 29515-6 Heart Rate 1: 96 bpm Height: 5'10" Weight: 186 lbs 11/30/2012 Blood Pressure 1: 170/90 Code: 8480-6 BMI: 26.8 Code: 59759-8 Heart Rate 1: 80 bpm Height: 5'10" Weight: 187 lbs 11/09/2012 Blood Pressure 1: 178/84 Code: 8480-6 BMI: 26.5 Code: 10848-4 Heart Rate 1: 86 bpm Height: 5'10" [...] pain Quality recurrent 05/10/2013 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 PATIENT, LEVEL IV Diagnosis: Pain in left elbow[ICD10: M25.522] Diagnosis: Pain in right elbow[ICD10: M25.521] Diagnosis: Pain in joints of left hand[ICD10: M25.542] Diagnosis: Pain in joints of right hand[ICD10: M25.541] Diagnosis: Other fatigue[ICD10: R53.83] Diagnosis: Other halfway (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[ICD10: Z79.899] Gayle Fajardo MD, [facility] CPT-4: 56274 02/24/2017 ([id number]) 83388 EST. PATIENT, LEVEL III Diagnosis: Essential (primary) hypertension[ICD10: I10] Jennifer Fajardo MD, [facility] CPT-4: 62741 05/07/2016 ([id number]) 10362 EST. 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 PATIENT, LEVEL IV Diagnosis: Essential (primary) hypertension[ICD10: I10] Diagnosis: Mixed hyperlipidemia[ICD10: E78.2] Diagnosis: Other halfway (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[ICD10: Z79.899] Diagnosis: Impaired fasting glucose[ICD10: R73.01] Diagnosis: Acute recurrent maxillary sinusitis[ICD10: J01.01] Jennifer Fajardo MD, [facility] CPT-4: 26181 10/31/2015 ([id number]) 20293 EST. PATIENT, LEVEL III Diagnosis: CELLULITIS[ICD9: 682.9] Mahnaz Fajardo MD [facility] CPT-4: 73486 01/25/2014 ([id number]) 99679 EST. PATIENT, LEVEL III Diagnosis: Acute maxillary sinusitis[ICD9: 461.0] Diagnosis: Cough[ICD9: 786.2] Mahnaz Fajardo MD [facility] CPT-4: 30098 11/29/2013 ([id number]) 00660 EST. PATIENT, LEVEL III Diagnosis: ESSENTIAL HYPERTENSION[SNOMED: 78325299] Diagnosis: Encounter for long-term (current) use of other high-risk medications[ICD9: V58.69] Jennifer Fajardo MD [facility] CPT-4: 09164 11/10/2013 ([id number]) 13018 EST. PATIENT, LEVEL IV Diagnosis: ESSENTIAL HYPERTENSION[SNOMED: 14562932] Diagnosis: HYPERLIPIDEMIA[ICD9: 272.4] Mahnaz Fajardo MD [facility] CPT-4: 22534 05/10/2013 ([id number]) 45654 EST. PATIENT, LEVEL III Diagnosis: Esophageal reflux[ICD9: 530.81] Diagnosis: Sore throat[ICD9: 462] Diagnosis: Allergic rhinitis[ICD9: 477.9] Mahnaz Fajardo MD [facility] CPT-4: 97134 02/23/2013 ([id number]) 77532 EST. PATIENT, LEVEL III Diagnosis: ESSENTIAL HYPERTENSION[SNOMED: 31819696] Diagnosis: HYPERLIPIDEMIA[ICD9: 272.4] Mahnaz Fajardo MD [facility] CPT-4: 46642 01/12/2013 ([id number]) 23157 EST. 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 The patient is to call the office if the pain is worsening or does not improve. 02/24/2017 Appointment: Gayle Morris WPtel: [phone] [phone] (30 min) Complex 02/24/2017 Patient Education: Patient Medication Summary Completed 02/24/2017 Patient Education: Patient Medication Summary Completed 11/20/2016 Care Plan: Pt Pending 11/20/2016 Appointment: Jennifer Perez WPtel: [phone] [phone] (30 min) Complex 11/05/2016 Visit Plan: Hypertension - well controlled - continue with current medications, continue with no added salt diet. Pt has been encouraged to exercise daily.The pt has been advised to call the office if there are any acute concerns about change in blood pressure readings at home. 05/07/2016 Appointment: Jennifer Perez WPtel: [phone] [phone] (30 min) Complex 05/07/2016 Patient Education: [...] 03/02/2016 Care Plan: Referral Order SNOMED-CT : 005395947 Pending 03/02/2016 Visit Plan: Hypertension - well [...] of pressure. 01/25/2014 Appointment: Mahnaz Fajardo WPtel: [facility] [place] Other 01/25/2014 Patient Education: Patient Medication Summary Completed 01/25/2014 Appointment: Mahnaz Fajardo WPtel: [facility]3 [facility] [place] Sick 11/29/2013 Patient Education: Patient [...] PT/INR 11/10/2013 Appointment: Jennifer Perez WPtel: [phone] [phone] Follow up 11/10/2013 Patient Education: Patient Medication Summary Completed 11/10/2013 Patient Education: Hypertension Completed 11/10/2013 Appointment: Mahnaz Fajardo WPtel: [facility]5 [facility] Follow up 11/08/2013 Visit Plan: Hypertension [...] to medications. 05/10/2013 Appointment: Mahnaz Fajardo WPtel: [facility] Follow up 05/10/2013 Patient Education: Patient Medication Summary Completed 05/10/2013 Patient Education: Hypertension Completed 05/10/2013 Appointment: Mahnaz Fajardo WPtel: [facility]5 [facility] Sick 02/24/2013 Visit Plan: Esophageal Reflux [...] one month. 01/12/2013 Appointment: Mahnaz Fajardo WPtel: [id number] Follow up 01/12/2013 Patient Education: Patient Medication Summary Completed 01/12/2013 Patient Education: Hypertension Completed 01/12/2013 Appointment: [facility] Fajardo [facility]el[id number] Follow up 01/11/2013 Visit Plan: Nerve pain [...] and to assure normal liver response to medications.[place] red Krill oil twice daily 11/30/2012 Appointment: [facility]ajardo [id number] Follow up 11/30/2012 Patient Education: Patient Medication [...] arthritis. 11/09/2012 Appointment: [facility]ajardo [id number] New Patient 11/09/2012 Patient Education: Patient Medication [...] improvement. Kenalog injection today in the office. [place] red Krill oil twice daily increase the [...] to assure normal liver response to medications. [place] red Krill oil twice daily . Hypertension [...]
--- OUTSIDE RECORDS SUMMARY | 2019-02-13 12:06 | XMS REPORT | CCD ---
Author Author [facility] Organization [facility] Address [address] [place] [address] Phone Care Team Providers Care Medical Assistant Cardiology Name Role Phone PP Unavailable CCM Unavailable Summary Purpose Interface Exchange Insurance Providers Payer name Policy type / Coverage type Covered alliance party ID Effective Begin Date Effective End Date WPS Medicare Part B Medicare Part B [id number] Unknown [employer] Medicare Part B [id number] Unknown Family history Mother Diagnosis Age At Onset Stroke Unknown Father Diagnosis Age At Onset Hypertension Unknown Sister Diagnosis Age At Onset Hypertension Unknown Social History Social History Element Codes Description Effective Dates Marital status Unknown 11/09/[address]: 2381777 Former smoker quit 1988 11/09/2012 Allergies, Adverse Reactions, Alerts Substance Reaction Codes Entered Date Inactivated Date Status ASPIRIN (TARTRAZINE ONLY) hives Unknown 11/09/2012 No Inactive Date Active Past Medical History Illness Codes Condition Status Onset Date Resolved Date Other fatigue ICD-9: 780.79 ICD-10: R53.83 Active 02/24/2017 Unknown Other prison (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 ICD-9: V58.69 ICD-10: Z79.899 [...] ICD-9: 780.79 ICD-10: R53.83 02/24/2017 Active Other prison (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 ICD-9: V58.69 ICD-10: Z79.899 [...] Fill Instructions lisinopril 20 mg tablet RxNorm: 234905 2 Tablet(s) PO BID 02/26/2017 02/20/2018 Active cyclobenzaprine 5 mg tablet RxNorm: 493617 1 Tablet(s) PO TID as needed muscle spasms 02/24/2017 02/28/2017 Inactive warfarin 3 mg tablet RxNorm: 024139 1 Tablet(s) PO daily 11/23/2016 No Stop Date Active lisinopril 20 mg tablet RxNorm: 399700 Take 2 tablets by mouth twice a day 09/22/2016 02/25/2017 Inactive - Ref: [id number] lisinopril 20 mg tablet RxNorm: 445034 1 Tablet(s) PO BID 05/07/2016 02/25/2017 Inactive First Attempt Coreg 25 mg tablet RxNorm: 992825 1 Tablet(s) PO BID 05/07/2016 02/23/[address] Reddy lisinopril 20 mg tablet RxNorm: 129423 1 Tablet(s) PO daily Take 2 tablets by mouth bid 05/07/2016 05/06/2016 Inactive First Attempt Flomax 0.4 mg capsule RxNorm: 331829 Take 2 capsules by mouth daily 03/15/2016 06/07/2017 Active - First Attempt lisinopril 20 mg tablet RxNorm: 477837 2 Tablet(s) PO BID Take 2 tablets by mouth bid 03/04/2016 05/06/2016 Inactive First Attempt lisinopril 20 mg tablet RxNorm: 220702 1 Tablet(s) PO BID Take 2 tablets by mouth daily 03/02/2016 03/03/2016 Inactive First Attempt Phenergan with Codeine Syrup RxNorm: 5 Milliliter(s) PO Q6 PRN 10/31/2015 No Stop Date Active Kenalog 40 mg/mL suspension for injection RxNorm: 3217390 Milliliter(s) Inj 10/31/2015 10/31/2015 Inactive warfarin 3 mg tablet RxNorm: 459953 Tablet(s) Take 1 tablet by mouth on tues,wed,thur,sat and sun and 1 and 1/2 tablets by mouth on mon and fri 10/31/2015 07/23/2016 Inactive Zithromax Z-[place] 250 mg tablet RxNorm: 358104 1 Tablet(s) PO UD 10/31/2015 11/04/2015 Inactive zpack Coreg 3.125 mg tablet RxNorm: 044325 1 Tablet(s) PO BID 06/19/2015 05/06/2016 Inactive warfarin 3 mg tablet RxNorm: 340125 Take 1 tablet by mouth on tues,wed,thur,sat and sun and 1 and 1/2 tablets by mouth on mon and fri 06/06/2015 06/05/2015 Inactive 2nd Attempt warfarin 3 mg tablet RxNorm: 839896 Tablet(s) Take 1 tablet by mouth on tues,wed,thur,sat and sun and 1 and 1/2 tablets by mouth on mon and fri 06/06/2015 10/30/2015 Inactive 2nd Attempt Flomax 0.4 mg capsule RxNorm: 477096 Take 2 capsules by mouth daily 04/29/2015 01/23/2016 Inactive First Attempt lisinopril 10 mg tablet RxNorm: 460418 Take 2 tablets by mouth daily 04/29/2015 01/23/2016 Inactive First Attempt warfarin 3 mg tablet RxNorm: 920249 one wed sat sun 4.5mg wednesday Tablet(s) PO daily 07/25/2014 06/05/2015 Inactive Flomax 0.4 mg capsule RxNorm: 784214 2 Capsule(s) PO daily 07/25/2014 04/28/2015 Inactive lisinopril 10 mg tablet RxNorm: 892811 2 Tablet(s) PO daily 07/25/2014 04/28/2015 Inactive Coreg 3.125 mg tablet RxNorm: 994484 1 Tablet(s) PO BID 07/25/2014 06/18/2015 Inactive cephalexin 500 mg capsule RxNorm: 583925 1 Capsule(s) PO QID 11/29/2013 10/30/2015 Inactive lisinopril 20 mg tablet RxNorm: 778287 1 Tablet(s) PO BID 11/10/2013 03/09/2014 Inactive Flomax 0.4 mg capsule RxNorm: 572823 2 Capsule(s) PO daily 10/12/2013 07/24/2014 Inactive Coreg 3.125 mg tablet RxNorm: 501219 1 Tablet(s) PO BID 10/12/2013 07/24/2014 Inactive lisinopril 10 mg tablet RxNorm: 267791 2 Tablet(s) PO daily 10/12/2013 11/09/2013 Inactive warfarin 3 mg tablet RxNorm: 059410 one wed sat sun 4.5mg wednesday Tablet(s) PO daily 10/12/2013 07/24/2014 Inactive o Flomax 0.4 mg capsule RxNorm: 372265 2 Capsule(s) PO daily 06/05/2013 10/11/2013 Inactive Zetia 10 mg tablet RxNorm: 025512 1 Tablet(s) PO daily 05/16/2013 05/15/2013 Inactive Zetia 10 mg tablet RxNorm: 269356 1 Tablet(s) PO daily 05/16/2013 09/12/2013 Inactive Carafate 100 mg/mL Oral Susp RxNorm: 198781 10 Milliliter(s) PO QID 05/10/2013 10/30/2015 Inactive dispense one month supply Flomax 0.4 mg capsule RxNorm: 212257 2 Capsule(s) PO daily 05/10/2013 06/04/2013 Inactive Carafate 100 mg/mL Oral Susp RxNorm: 840392 10 Milliliter(s) PO QID 02/23/2013 04/23/2013 Inactive dispense one month supply gabapentin 100 mg capsule RxNorm: 421391 1 Capsule(s) PO daily one at bedtime and one up to three times daily as needed for nerve pain in leg 01/16/2013 05/09/2013 Inactive gabapentin 100 mg capsule RxNorm: 260440 1 Capsule(s) PO daily one at bedtime and one up to three times daily as needed for nerve pain in leg 01/12/2013 01/15/2013 Inactive warfarin 3 mg tablet RxNorm: 957339 Tablet(s) PO 12/05/2012 10/11/2013 Inactive one tue thur sat4.5 mg mon frid lisinopril 10 mg tablet RxNorm: 712282 2 Tablet(s) PO daily 11/30/2012 06/27/2013 Inactive gabapentin 100 mg capsule RxNorm: 126562 1 Capsule(s) PO Q8 PRN one at bedtime and one up to three times daily as needed for nerve pain in leg 11/30/2012 01/11/2013 Inactive Coreg 3.125 mg tablet RxNorm: 377964 1 Tablet(s) PO BID 11/09/2012 01/07/2013 Inactive lisinopril 10 mg tablet RxNorm: 878673 1.5 Tablet(s) PO daily 11/09/2012 11/29/2012 Inactive Co Q-10 oral RxNorm: 73963 oral No Start Date Active Coreg 12.5 mg tablet RxNorm: 672555 1 Tablet(s) PO BID No Start Date Active lisinopril 20 mg tablet RxNorm: 541457 1 Tablet(s) PO BID No Start Date Active warfarin 3 mg tablet RxNorm: 836844 Tablet(s) PO No Start Date 12/04/2012 Inactive one tue thur sat4.5 mg mon frid Flomax 0.4 mg capsule RxNorm: 070236 1 Capsule(s) PO daily No Start Date 05/09/2013 Inactive niacin 500 mg tablet RxNorm: 521679 1 Tablet(s) PO daily No Start Date 03/01/2016 Inactive Medication Administered Medication Codes Instructions Start Date Status Kenalog 40 mg/mL suspension for injection RxNorm: 5020660 Milliliter 10/31/2015 No longer Active Immunizations No Immunization data Assessments Condition Codes Effective Dates Pain in joints of right hand ICD-10: M25.541 ICD-9: 719.44 02/24/2017 Pain in right elbow ICD-10: M25.521 ICD-9: 719.42 02/24/2017 Other fatigue ICD-10: R53.83 ICD-9: 780.79 02/24/2017 Other exterminator termite (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 ICD-10: Z79.899 ICD-9: V58.69 [...] sinusitis ICD-9: 461.0 11/29/2013 ESSENTIAL HYPERTENSION SNOMED: 06041231 ICD-9: 401.9 11/10/2013 Encounter for long-term (current) [...] Crqnt CRP 0.2 mg/dl 02/24/2017 Comp Metabolic Kxd190 NA 139 mEq/L 02/24/2017 Comp Metabolic Cib808 K 3.9 mEq/L 02/24/2017 Comp Metabolic Gmi593 CL 105 mEq/L 02/24/2017 Comp Metabolic Gau202 CO2 27.0 mEq/L 02/24/2017 Comp Metabolic Gdy045 ANION GAP 11 02/24/2017 Comp Metabolic Cbk202 GLUCOSE 93 mg/dL 02/24/2017 Comp Metabolic Yjh842 Creat 1.1 mg/dL 02/24/2017 Comp Metabolic Qsd282 eGFR 73 ml/min/1.73m2 02/24/2017 Comp Metabolic Zol900 BUN 14 mg/dL 02/24/2017 Comp Metabolic Aya887 B/C Ratio 13.1 Ratio 02/24/2017 Comp Metabolic Xwt536 CALCIUM 8.4 mg/dL 02/24/2017 Comp Metabolic Mnh417 ALK PHOS 89 U/L 02/24/2017 Comp Metabolic Vnb578 AST(SGOT) 18 U/L 02/24/2017 Comp Metabolic Uoc744 ALT(SGPT) 21 U/L 02/24/2017 Comp Metabolic Gce847 BILI T 0.5 mg/dL 02/24/2017 Comp Metabolic Pgw786 ALBUMIN 3.8 g/dL 02/24/2017 Comp Metabolic Suc383 TPRO 6.5 g/dL 02/24/2017 Comp Metabolic Kou773 GLOB 2.7 g/dL 02/24/2017 Comp Metabolic Czx434 A/G Ratio 1.4 Ratio 02/24/2017 Comp Metabolic Alp704 Osmo 278 mOsmo 02/24/2017 Sed Rate Ord21 ESR 25 mm/hr 02/24/2017 Pt Eti8377 PT 31.7 seconds 02/24/2017 Pt Nov9097 INR 3.3 02/24/2017 Pt Jny0278 Low Intensity - 1.5-2.0 02/24/2017 Pt Msx0819 Mod intensity - 2.0-3.0 02/24/2017 Pt Ogd0613 Hi intensity - 3.0-4.0 02/24/2017 Cbc With [...] 29.6 pg 02/24/2017 Cbc With Differential Ord2 [place]% 9.7 % 02/24/2017 Cbc With Differential Ord2 MCHC 35.0 pg 02/24/2017 Cbc With Differential Ord2 Eos% 2.6 % 02/24/2017 Cbc With Differential Ord2 PLT 212 K/ul 02/24/2017 Cbc With Differential Ord2 Baso% 1.1 % 02/24/2017 Cbc With Differential Ord2 Neut ABS# 4.68 K/ul 02/24/2017 Cbc With Differential Ord2 RDW 13.9 % 02/24/2017 Cbc With Differential Ord2 Lymph ABS# 2.62 K/ul 02/24/2017 Cbc With Differential Ord2 [place] ABS# 0.8 K/ul 02/24/2017 Cbc With Differential Ord2 Eos ABS# 0.2 K/ul 02/24/2017 Cbc With Differential Ord2 Baso ABS# 0.1 K/ul 02/24/2017 Pt For1943 PT 22.4 seconds 12/28/2016 Pt Rsb8235 INR 2.1 12/28/2016 Pt Tfl2065 Low Intensity - 1.5-2.0 12/28/2016 Pt Jqh8121 Mod intensity - 2.0-3.0 12/28/2016 Pt Qii4146 Hi intensity - 3.0-4.0 12/28/2016 Pt Luj8510 PT 30.2 seconds 11/26/2016 Pt Gjs4286 INR 3.1 11/26/2016 Pt Pog0822 Low Intensity - 1.5-2.0 11/26/2016 Pt Xub4110 Mod intensity - 2.0-3.0 11/26/2016 Pt Rhh4949 Hi intensity - 3.0-4.0 11/26/2016 Pt Ytl3564 PT 34.3 seconds 11/20/2016 Pt Wbd5294 INR 3.7 11/20/2016 Pt Hdu9105 Low Intensity - 1.5-2.0 11/20/2016 Pt Sda2646 Mod intensity - 2.0-3.0 11/20/2016 Pt Npr9405 Hi intensity - 3.0-4.0 11/20/2016 Pt Kpf3140 PT 29.0 seconds 07/14/2016 Pt Pzr7770 INR 2.9 07/14/2016 Pt Mpg7010 Low Intensity - 1.5-2.0 07/14/2016 Pt Yok4331 Mod intensity - 2.0-3.0 07/14/2016 Pt Ddh8896 Hi intensity - 3.0-4.0 07/14/2016 Lipid Ord30 CHOL 236 mg/dL 07/14/2016 Lipid Ord30 HDL 36.0 mg/dl 07/14/2016 Lipid Ord30 TRIG 406 mg/dL 07/14/2016 Lipid Ord30 LDL Unable to calculate Due to elevated triglycerides mg/dL 07/14/2016 Lipid Ord30 C/HDL 6.6 Ratio 07/14/2016 Pt Mbm5499 PT 30.0 seconds 03/02/2016 Pt Civ6968 INR 3.1 03/02/2016 Pt Ifw5775 Low Intensity - 1.5-2.0 03/02/2016 Pt Jhj6178 Mod intensity - 2.0-3.0 03/02/2016 Pt Zav2798 Hi intensity - 3.0-4.0 03/02/2016 %Hba1C Woa681 % HbA1c 87688- 6 6.0 % 03/02/2016 %Hba1C Swq300 Gluc Ave 126 mg/dL 03/02/2016 Tsh Ord6 hTSH II 0.68 uIU/mL 03/02/2016 Comp Metabolic Qvm365 NA 140 mEq/L 03/02/2016 Comp Metabolic See498 K 4.1 mEq/L 03/02/2016 Comp Metabolic Vpe940 CL 105 mEq/L 03/02/2016 Comp Metabolic Qte402 CO2 29.0 mEq/L 03/02/2016 Comp Metabolic Iwa189 ANION GAP 10 03/02/2016 Comp Metabolic Frw095 GLUCOSE 104 mg/dL 03/02/2016 Comp Metabolic Daz697 Creat 1.0 mg/dL 03/02/2016 Comp Metabolic Zxg419 eGFR 77 ml/min/1.73m2 03/02/2016 Comp Metabolic Hsl307 BUN 15 mg/dL 03/02/2016 Comp Metabolic Jhy162 B/C Ratio 14.7 Ratio 03/02/2016 Comp Metabolic Xyn736 CALCIUM 8.9 mg/dL 03/02/2016 Comp Metabolic Qie370 ALK PHOS 84 U/L 03/02/2016 Comp Metabolic Zxb711 AST(SGOT) 16 U/L 03/02/2016 Comp Metabolic Doi560 ALT(SGPT) 17 U/L 03/02/2016 Comp Metabolic Bkv836 BILI T 0.5 mg/dL 03/02/2016 Comp Metabolic Rri512 ALBUMIN 4.0 g/dL 03/02/2016 Comp Metabolic Wlt671 TPRO 6.6 g/dL 03/02/2016 Comp Metabolic Gjf356 GLOB 2.6 g/dL 03/02/2016 Comp Metabolic Qhm131 A/G Ratio 1.5 Ratio 03/02/2016 Comp Metabolic Cio056 Osmo 281 mOsmo 03/02/2016 Cbc With Differential [...] 28.4 % 03/02/2016 Cbc With Differential Ord2 [place]% 8.1 % 03/02/2016 Cbc With Differential Ord2 [...] 2.29 K/ul 03/02/2016 Cbc With Differential Ord2 [place] ABS# 0.7 K/ul 03/02/2016 Cbc With Differential [...] 28.8 pg 10/31/2015 Cbc With Differential Ord2 [place]% 12.7 % 10/31/2015 Cbc With Differential Ord2 Eos% 1.4 % 10/31/2015 Cbc With Differential Ord2 MCHC 34.0 pg 10/31/2015 Cbc With Differential Ord2 Baso% 0.6 % 10/31/2015 Cbc With Differential Ord2 PLT 222 K/ul 10/31/2015 Cbc With Differential Ord2 RDW 14.4 % 10/31/2015 Cbc With Differential Ord2 Neut ABS# 3.07 K/ul 10/31/2015 Cbc With Differential Ord2 Lymph ABS# 1.31 K/ul 10/31/2015 Cbc With Differential Ord2 [place] ABS# 0.7 K/ul 10/31/2015 Cbc With Differential [...] hTSH II 0.88 uIU/mL 10/31/2015 Comp Metabolic Yez641 NA 135 mEq/L 10/31/2015 Comp Metabolic Bdi639 K 4.2 mEq/L 10/31/2015 Comp Metabolic Fxf513 CL 99 mEq/L 10/31/2015 Comp Metabolic Qtj168 CO2 28.0 mEq/L 10/31/2015 Comp Metabolic Bbj008 ANION GAP 12 10/31/2015 Comp Metabolic Ywv383 GLUCOSE 107 mg/dL 10/31/2015 Comp Metabolic Fnr934 Creat 1.2 mg/dL 10/31/2015 Comp Metabolic Zwk529 eGFR 63 ml/min/1.73m2 10/31/2015 Comp Metabolic Enk312 BUN 12 mg/dL 10/31/2015 Comp Metabolic Cpr774 B/C Ratio 9.9 Ratio 10/31/2015 Comp Metabolic Dpo402 CALCIUM 8.4 mg/dL 10/31/2015 Comp Metabolic Ney440 ALK PHOS 134 U/L 10/31/2015 Comp Metabolic Wmk083 AST(SGOT) 20 U/L 10/31/2015 Comp Metabolic Vyb782 ALT(SGPT) 16 U/L 10/31/2015 Comp Metabolic Wtu515 BILI T 0.4 mg/dL 10/31/2015 Comp Metabolic Qoa291 ALBUMIN 4.2 g/dL 10/31/2015 Comp Metabolic Fqy118 TPRO 7.2 g/dL 10/31/2015 Comp Metabolic Clp765 GLOB 3.1 g/dL 10/31/2015 Comp Metabolic Zyu358 A/G Ratio 1.4 Ratio 10/31/2015 Comp Metabolic Fea810 Osmo 270 mOsmo 10/31/2015 Total Psa Ord10 PSA 2.66 ng/mL 10/31/2015 %Hba1C Cqo191 % HbA1c 26899- 6 6.1 % 10/31/2015 %Hba1C Kqp035 Gluc Ave 128 mg/dL 10/31/2015 Pt Fcn0189 PT 26.4 seconds 10/31/2015 Pt Ktn0745 INR 2.5 10/31/2015 Pt Kca9392 Low Intensity - 1.5-2.0 10/31/2015 Pt Iou7983 Mod intensity - 2.0-3.0 10/31/2015 Pt Tas7026 Hi intensity - 3.0-4.0 10/31/2015 TSH 4670182 TSH 0.819 uIU/ML 11/10/2013 PT/MC 7624969 PRO TIME 24.5 SEC 11/10/2013 PT/MC 0448338 INR MCMC 2.3 11/10/2013 GFR CALC 7300441 GFR AA >60 ML/MIN 11/10/2013 GFR CALC 6435989 GFR NON-AA >60 ML/MIN 11/10/2013 CBC 2039047 WBC 8.4 10e9/L 11/10/2013 CBC 4904104 RBC 5.24 10e12/L 11/10/2013 CBC 3518842 HGB 15.4 g/dL 11/10/2013 CBC 5791644 HCT DET 43.8 % 11/10/2013 CBC 2201053 MCV 83.6 fL 11/10/2013 CBC 5572973 MCH 29.4 pg 11/10/2013 CBC 9862544 MCHC 35.2 g/dL 11/10/2013 CBC 9526059 PLT 250 10e9/L 11/10/2013 CBC 9799160 MPV 11.1 fL 11/10/2013 CBC 1485251 OANH % 58.1 % 11/10/2013 CBC 4332289 LY % 28.5 % 11/10/2013 CBC 3543957 MON % 10.2 % 11/10/2013 CBC 6248153 EOS % 2.1 % 11/10/2013 CBC 3815419 BASO % 1.1 % 11/10/2013 CBC 5291346 RDW 13.3 % 11/10/2013 CBC 8449103 ABS OANH 4.88 10e9/L 11/10/2013 CBC 4324930 ABS LYMPH 2.39 10e9/L 11/10/2013 CBC 0596987 ABS MONO 0.86 10e9/L 11/10/2013 CBC 6919040 ABS EOS 0.18 10e9/L 11/10/2013 CBC 6130693 ABS BASO 0.09 10e9/L 11/10/2013 CBC 2399894 RDW-SD 40.7 fL 11/10/2013 CHEM 14 3897558 AST 17 U/L 11/10/2013 CHEM 14 2210591 ALT 17 IU/L 11/10/2013 CHEM 14 7585558 BUN 15 MG/DL 11/10/2013 CHEM 14 2559169 ALBUMIN 4.3 GM/DL 11/10/2013 CHEM 14 2659564 CHLORIDE 103 MMOL/L 11/10/2013 CHEM 14 3814443 BILI TOT 0.6 MG/DL 11/10/2013 CHEM 14 6543498 ALK PHOS 104 U/L 11/10/2013 CHEM 14 5625496 SODIUM 137 MMOL/L 11/10/2013 CHEM 14 2193769 CREATININE 1.08 MG/DL 11/10/2013 CHEM 14 7295451 CALCIUM 8.9 MG/DL 11/10/2013 CHEM 14 6577173 POTASSIUM 4.0 MMOL/L 11/10/2013 CHEM 14 9844831 PROT TOT 7.0 GM/DL 11/10/2013 CHEM 14 4964935 GLUCOSE 84 MG/DL 11/10/2013 CHEM 14 8484676 BICARB 28 MMOL/L 11/10/2013 CHEM 14 2512916 ANION GAP 6 MEQ/L 11/10/2013 Review of [...] retractions 02/23/2013 None Full Exam - General 1995 Respiratory respiratory effort/rhythm Overall: normal rate 02/23/2013 None Full Exam - General 1994 Cardiovascular extremities Overall: no clubbing 02/23/2013 None Full Exam - General 1995 [...] masses 11/09/2012 None Full Exam - General 1994 [...] Procedure Codes Date THER/PROPH/DIAG INJ SC/IM CPT-4: 17621Zmpjnil 10/31/2015 TRIAMCINOLONE ACET INJ NOS CPT-4: X9588Lrkixdg 10/31/2015 ROUTINE VENIPUNCTURE CPT-4: 64651Fddtnqi 11/10/2013 PRESCRIP TRANSMIT VIA ERX SY CPT-4: E7696Egolvuu 02/23/2013 PRESCRIP TRANSMIT VIA ERX SY CPT-4: D1531Asnyvbe 11/30/2012 PRESCRIP TRANSMIT VIA ERX SY CPT-4: T3270Minmsdn 11/09/2012 Vital Signs Date Vital 02/24/2017 Blood Pressure 1: 146/60 Code: 8480-6 BMI: 27.4 Code: 47758-8 Heart Rate 1: 61 bpm Height: 5'10" SpO2: 97% Weight: 191 lbs 05/07/2016 Blood Pressure 1: 146/66 Code: 8480-6 BMI: 26.3 Code: 98824-1 Heart Rate 1: 69 bpm Height: 5'10" SpO2: 97% Weight: 183 lbs 03/02/2016 Blood Pressure 1: 170/100 Code: 8480-6 Blood Pressure 1: 190/108 Code: 8480-6 BMI: 26.5 Code: 95182-5 Heart Rate 1: 76 bpm Height: 5'10" SpO2: 98% Weight: 185 lbs 10/31/2015 Blood Pressure 1: 126/86 Code: 8480-6 Blood Pressure 1: 142/90 Code: 8480-6 BMI: 26.8 Code: 38895-8 Heart Rate 1: 99 bpm Height: 5'10" SpO2: 95% Temperature: 37.0 (C) / 98.6 (F) Weight: 187 lbs 01/25/2014 Blood Pressure 1: 180/90 Code: 8480-6 BMI: 26.3 Code: 25603-5 Heart Rate 1: 76 bpm Height: 5'10" Temperature: 37.4 (C) / 99.3 (F) Weight: 183 lbs 11/29/2013 Blood Pressure 1: 164/82 Code: 8480-6 Heart Rate 1: 80 bpm Temperature: 37.1 (C) / 98.7 (F) Weight: 187 lbs 11/10/2013 Blood Pressure 1: 156/94 Code: 8480-6 Heart Rate 1: 72 bpm Weight: 186 lbs 05/10/2013 Blood Pressure 1: 134/78 Code: 8480-6 BMI: 25.7 Code: 81649-9 Heart Rate 1: 84 bpm Height: 5'10" Weight: 179 lbs 02/23/2013 Blood Pressure 1: 138/90 Code: 8480-6 BMI: 27.0 Code: 05230-1 Heart Rate 1: 88 bpm Height: 5'10" Temperature: 37.0 (C) / 98.6 (F) Weight: 188 lbs 01/12/2013 Blood Pressure 1: 136/78 Code: 8480-6 BMI: 26.7 Code: 37084-5 Heart Rate 1: 96 bpm Height: 5'10" Weight: 186 lbs 11/30/2012 Blood Pressure 1: 170/90 Code: 8480-6 BMI: 26.8 Code: 70195-8 Heart Rate 1: 80 bpm Height: 5'10" Weight: 187 lbs 11/09/2012 Blood Pressure 1: 178/84 Code: 8480-6 BMI: 26.5 Code: 88406-1 Heart Rate 1: 86 bpm Height: 5'10" [...] pain Quality recurrent 05/10/2013 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 PATIENT, LEVEL IV Diagnosis: Pain in left elbow[ICD10: M25.522] Diagnosis: Pain in right elbow[ICD10: M25.521] Diagnosis: Pain in joints of left hand[ICD10: M25.542] Diagnosis: Pain in joints of right hand[ICD10: M25.541] Diagnosis: Other fatigue[ICD10: R53.83] Diagnosis: Other exterminator termite (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[ICD10: Z79.899] Gayle Fajardo MD, [facility] CPT-4: 31256 02/24/2017 ([id number]) 34891 EST. PATIENT, LEVEL III Diagnosis: Essential (primary) hypertension[ICD10: I10] Jennifer Fajardo MD, [facility] CPT-4: 17853 05/07/2016 ([id number]) 08733 EST. PATIENT, LEVEL IV Diagnosis: Essential (primary) hypertension[ICD10: I10] Diagnosis: Impaired fasting glucose[ICD10: R73.01] Diagnosis: Other exterminator termite (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[ICD10: Z79.899] Jennifer Fajardo MD, [facility] CPT-4: 06483 03/02/2016 ([id number]) 84979 EST. PATIENT, LEVEL IV Diagnosis: Essential (primary) hypertension[ICD10: I10] Diagnosis: Mixed hyperlipidemia[ICD10: E78.2] Diagnosis: Other exterminator termite (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[ICD10: Z79.899] Diagnosis: Impaired fasting glucose[ICD10: R73.01] Diagnosis: Acute recurrent maxillary sinusitis[ICD10: J01.01] Jennifer Fajardo MD, [facility] CPT-4: 14764 10/31/2015 ([id number]) 48046 EST. PATIENT, LEVEL III Diagnosis: CELLULITIS[ICD9: 682.9] Mahnaz Fajardo MD, [facility] CPT-4: 36364 01/25/2014 ([id number]) 99059 EST. PATIENT, LEVEL III Diagnosis: Acute maxillary sinusitis[ICD9: 461.0] Diagnosis: Cough[ICD9: 786.2] Mahnaz Fajardo MD [facility] CPT-4: 64985 11/29/2013 ([id number]) 35232 EST. PATIENT, LEVEL III Diagnosis: ESSENTIAL HYPERTENSION[SNOMED: 44086774] Diagnosis: Encounter for long-term (current) use of other high-risk medications[ICD9: V58.69] Jennifer Fajardo MD [facility] CPT-4: 73549 11/10/2013 ([id number]) 64032 EST. PATIENT, LEVEL IV Diagnosis: ESSENTIAL HYPERTENSION[SNOMED: 01986979] Diagnosis: HYPERLIPIDEMIA[ICD9: 272.4] Mahnaz Fajardo MD [facility] CPT-4: 58937 05/10/2013 ([id number]) 76892 EST. PATIENT, LEVEL III Diagnosis: Esophageal reflux[ICD9: 530.81] Diagnosis: Sore throat[ICD9: 462] Diagnosis: Allergic rhinitis[ICD9: 477.9] Mahnaz Fajardo MD [facility] CPT-4: 22668 02/23/2013 ([id number]) 05004 EST. PATIENT, LEVEL III Diagnosis: ESSENTIAL HYPERTENSION[SNOMED: 78602796] Diagnosis: HYPERLIPIDEMIA[ICD9: 272.4] Mahnaz Fajardo MD [facility] CPT-4: 21337 01/12/2013 ([id number]) 16624 EST. 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 The patient is to call the office if the pain is worsening or does not improve. 02/24/2017 Appointment: Gayle Morris WPtel: [facility] (30 min) Complex 02/24/2017 Patient Education: Patient Medication Summary Completed 02/24/2017 Patient Education: Patient Medication Summary Completed 11/20/2016 Care Plan: Pt Pending 11/20/2016 Appointment: Jennifer Perez WPtel: [phone] (30 min) Complex 11/05/2016 Visit Plan: Hypertension - well controlled - continue with current medications, continue with no added salt diet. Pt has been encouraged to exercise daily.The pt has been advised to call the office if there are any acute concerns about change in blood pressure readings at home. 05/07/2016 Appointment: Jennifer Perez WPtel: [phone] (30 min) Complex 05/07/2016 Patient Education: [...] 03/02/2016 Care Plan: Referral Order SNOMED-CT : 735086100 Pending 03/02/2016 Visit Plan: Hypertension - well [...] of pressure. 01/25/2014 Appointment: Mahnaz Fajardo WPtel: [facility] Other 01/25/2014 Patient Education: Patient Medication Summary Completed 01/25/2014 Appointment: Mahnaz Fajardo WPtel: [phone] [facility] [facility] 11/29/2013 Patient Education: Patient Medication Summary Completed [...] call for acute concerns.Coumadin-check PT/INR 11/10/2013 Appointment: Chris Jennifer WPtel: [phone] [phone] Follow up 11/10/2013 Patient Education: Patient Medication Summary Completed 11/10/2013 Patient Education: Hypertension Completed 11/10/2013 Appointment: Mahnaz Fajardo WPtel: [phone] [facility] Follow up 11/08/2013 Visit Plan: [...] medications. 05/10/2013 Appointment: Mahnaz Fajardo WPtel: [phone] [facility] Follow up 05/10/2013 Patient Education: Patient Medication Summary Completed 05/10/2013 Patient Education: Hypertension Completed 05/10/2013 Appointment: Mahnaz Fajardo WPtel: [phone] [facility] Sick 02/24/2013 Visit Plan: Esophageal Reflux - [...] month. 01/12/2013 [facility]ment[phone] Follow [facility] 01/12/2013 Patient Education: Patient Medication Summary Completed 01/12/2013 Patient Education: Hypertension Completed 01/12/2013 Appointment: [phone] Follow [facility] 01/11/2013 Visit Plan: Nerve [...] and to assure normal liver response to medications.[place] red Krill oil twice daily 11/30/2012 Appointment: [facility]ardo [phone] Follow [facility] 11/30/2012 Patient Education: Patient [...] arthritis. 11/09/2012 Appointment: [facility] Fajardo [phone] New Patient 11/09/2012 Patient Education: Patient [...] improvement. Kenalog injection today in the office. [place] red Krill oil twice daily increase the [...] to assure normal liver response to medications. [place] red Krill oil twice daily . Hypertension [...]
--- OUTSIDE RECORDS SUMMARY | 2019-02-13 12:08 | XMS REPORT | CCD ---
Author Author Mahnaz Fajardo Organization Mahnaz Fajardo MD, [facility] Address [address] [place] [address] Phone Care Team Providers Care Social Human Services Assistants Name Role Phone PP Unavailable CCM Unavailable Summary Purpose Interface Exchange Insurance Providers Payer name Policy type / Coverage type Covered libertarian ID Effective Begin Date Effective End Date WPS Medicare Part B Medicare Part B [id number] Unknown [facility] Medicare Part B [id number] Unknown Family history Mother Diagnosis Age At Onset Stroke Unknown Father Diagnosis Age At Onset Hypertension Unknown Sister Diagnosis Age At Onset Hypertension Unknown Social History Social History Element Codes Description Effective Dates Marital status Unknown 11/09/[address]: 6984990 Former smoker quit 1988 11/09/2012 Allergies, Adverse [...] 719.42 ICD-10: M25.521 Active 02/24/2017 Unknown 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 ICD-9: V58.69 ICD-10: Z79.899 Active 03/01/2016 Unknown Essential (primary) hypertension ICD-9: 401.9 ICD-10: [...] 9: 719.42 ICD-10: M25.521 02/24/2017 Active 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 ICD-9: V58.69 ICD-10: Z79.899 03/01/2016 Active Essential (primary) hypertension ICD-9: 401.9 ICD-10: [...] Fill Instructions lisinopril 20 mg tablet RxNorm: 422886 2 Tablet(s) PO BID 02/26/2017 02/20/2018 Active cyclobenzaprine 5 mg tablet RxNorm: 317928 1 Tablet(s) PO TID as needed muscle spasms 02/24/2017 02/28/2017 Active warfarin 3 mg tablet RxNorm: 017117 1 Tablet(s) PO daily 11/23/2016 No Stop Date Active lisinopril 20 mg tablet RxNorm: 828501 Take 2 tablets by mouth twice a day 09/22/2016 02/25/2017 Inactive - Ref: 514559991 Coreg 25 mg tablet RxNorm: 878726 1 Tablet(s) PO BID 05/07/2016 05/01/[address] Reddy lisinopril 20 mg tablet RxNorm: 586067 1 Tablet(s) PO BID 05/07/2016 02/25/2017 Inactive First Attempt lisinopril 20 mg tablet RxNorm: 323081 1 Tablet(s) PO daily Take 2 tablets by mouth bid 05/07/2016 05/06/2016 Inactive First Attempt Flomax 0.4 mg capsule RxNorm: 945624 Take 2 capsules by mouth daily 03/15/2016 06/07/2017 Active - First Attempt lisinopril 20 mg tablet RxNorm: 948220 2 Tablet(s) PO BID Take 2 tablets by mouth bid 03/04/2016 05/06/2016 Inactive First Attempt lisinopril 20 mg tablet RxNorm: 945758 1 Tablet(s) PO BID Take 2 tablets by mouth daily 03/02/2016 03/03/2016 Inactive First Attempt Phenergan with Codeine Syrup RxNorm: 5 Milliliter(s) PO Q6 PRN 10/31/2015 No Stop Date Active Kenalog 40 mg/mL suspension for injection RxNorm: 9775075 Milliliter(s) Inj 10/31/2015 10/31/2015 Inactive warfarin 3 mg tablet RxNorm: 579146 Tablet(s) Take 1 tablet by mouth on tues,wed,thur,sat and sun and 1 and 1/2 tablets by mouth on mon and fri 10/31/2015 07/23/2016 Inactive Zithromax Z-[place] 250 mg tablet RxNorm: 141555 1 Tablet(s) PO UD 10/31/2015 11/04/2015 Inactive zpack Coreg 3.125 mg tablet RxNorm: 624519 1 Tablet(s) PO BID 06/19/2015 05/06/2016 Inactive warfarin 3 mg tablet RxNorm: 905670 Take 1 tablet by mouth on tues,wed,thur,sat and sun and 1 and 1/2 tablets by mouth on mon and fri 06/06/2015 06/05/2015 Inactive 2nd Attempt warfarin 3 mg tablet RxNorm: 520766 Tablet(s) Take 1 tablet by mouth on tues,wed,thur,sat and sun and 1 and 1/2 tablets by mouth on mon and fri 06/06/2015 10/30/2015 Inactive 2nd Attempt Flomax 0.4 mg capsule RxNorm: 543433 Take 2 capsules by mouth daily 04/29/2015 01/23/2016 Inactive First Attempt lisinopril 10 mg tablet RxNorm: 501197 Take 2 tablets by mouth daily 04/29/2015 01/23/2016 Inactive First Attempt warfarin 3 mg tablet RxNorm: 360345 one wed sat sun 4.5mg wednesday Tablet(s) PO daily 07/25/2014 06/05/2015 Inactive Flomax 0.4 mg capsule RxNorm: 719973 2 Capsule(s) PO daily 07/25/2014 04/28/2015 Inactive lisinopril 10 mg tablet RxNorm: 513246 2 Tablet(s) PO daily 07/25/2014 04/28/2015 Inactive Coreg 3.125 mg tablet RxNorm: 946577 1 Tablet(s) PO BID 07/25/2014 06/18/2015 Inactive cephalexin 500 mg capsule RxNorm: 493364 1 Capsule(s) PO QID 11/29/2013 10/30/2015 Inactive lisinopril 20 mg tablet RxNorm: 605898 1 Tablet(s) PO BID 11/10/2013 03/09/2014 Inactive Flomax 0.4 mg capsule RxNorm: 179072 2 Capsule(s) PO daily 10/12/2013 07/24/2014 Inactive Coreg 3.125 mg tablet RxNorm: 042405 1 Tablet(s) PO BID 10/12/2013 07/24/2014 Inactive lisinopril 10 mg tablet RxNorm: 801868 2 Tablet(s) PO daily 10/12/2013 11/09/2013 Inactive warfarin 3 mg tablet RxNorm: 234652 one wed sat sun 4.5mg wednesday Tablet(s) PO daily 10/12/2013 07/24/2014 Inactive o Flomax 0.4 mg capsule RxNorm: 315284 2 Capsule(s) PO daily 06/05/2013 10/11/2013 Inactive Zetia 10 mg tablet RxNorm: 698127 1 Tablet(s) PO daily 05/16/2013 05/15/2013 Inactive Zetia 10 mg tablet RxNorm: 280886 1 Tablet(s) PO daily 05/16/2013 09/12/2013 Inactive Carafate 100 mg/mL Oral Susp RxNorm: 463069 10 Milliliter(s) PO QID 05/10/2013 10/30/2015 Inactive dispense one month supply Flomax 0.4 mg capsule RxNorm: 426097 2 Capsule(s) PO daily 05/10/2013 06/04/2013 Inactive Carafate 100 mg/mL Oral Susp RxNorm: 962869 10 Milliliter(s) PO QID 02/23/2013 04/23/2013 Inactive dispense one month supply gabapentin 100 mg capsule RxNorm: 014516 1 Capsule(s) PO daily one at bedtime and one up to three times daily as needed for nerve pain in leg 01/16/2013 05/09/2013 Inactive gabapentin 100 mg capsule RxNorm: 968087 1 Capsule(s) PO daily one at bedtime and one up to three times daily as needed for nerve pain in leg 01/12/2013 01/15/2013 Inactive warfarin 3 mg tablet RxNorm: 435106 Tablet(s) PO 12/05/2012 10/11/2013 Inactive one tue thur sat4.5 mg mon frid lisinopril 10 mg tablet RxNorm: 580963 2 Tablet(s) PO daily 11/30/2012 06/27/2013 Inactive gabapentin 100 mg capsule RxNorm: 648088 1 Capsule(s) PO Q8 PRN one at bedtime and one up to three times daily as needed for nerve pain in leg 11/30/2012 01/11/2013 Inactive Coreg 3.125 mg tablet RxNorm: 350617 1 Tablet(s) PO BID 11/09/2012 01/07/2013 Inactive lisinopril 10 mg tablet RxNorm: 420043 1.5 Tablet(s) PO daily 11/09/2012 11/29/2012 Inactive Co Q-10 oral RxNorm: 48610 oral No Start Date Active warfarin 3 mg tablet RxNorm: 095363 Tablet(s) PO No Start Date 12/04/2012 Inactive one tue thur sat4.5 mg mon frid Flomax 0.4 mg capsule RxNorm: 035181 1 Capsule(s) PO daily No Start Date 05/09/2013 Inactive niacin 500 mg tablet RxNorm: 028795 1 Tablet(s) PO daily No Start Date 03/01/2016 Inactive Medication Administered Medication Codes Instructions Start Date Status Kenalog 40 mg/mL suspension for injection RxNorm: 8957569 Milliliter 10/31/2015 No longer Active Immunizations No Immunization data Assessments Condition Codes Effective Dates 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 ICD-10: Z79.899 ICD-9: V58.69 11/20/2016 Essential (primary) hypertension ICD-10: I10 ICD-9: 401.9 05/07/2016 Impaired fasting glucose ICD-10: R73.01 ICD-9: 790.21 03/02/2016 Acute recurrent maxillary sinusitis ICD-10: J01.01 ICD-9: 461.0 10/31/2015 Mixed hyperlipidemia ICD-10: E78.2 ICD-9: 272.4 10/31/2015 CELLULITIS ICD-9: 682.9 01/25/2014 Cough ICD-9: 786.2 11/29/2013 Acute maxillary sinusitis ICD-9: 461.0 11/29/2013 ESSENTIAL HYPERTENSION SNOMED: 45304444 ICD-9: 401.9 11/10/2013 Encounter for long-term (current) use of other high-risk medications ICD-9: V58.69 11/10/2013 HYPERLIPIDEMIA ICD-9: 272.4 05/10/2013 Allergic rhinitis ICD-9: 477.9 02/23/2013 Sore throat ICD-9: 462 02/23/2013 Esophageal reflux ICD-9: 530.81 02/23/2013 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 11/30/2012 Hip pain ICD-9: 719.45 11/09/2012 Renal artery stenosis ICD-9: 440.1 11/09/2012 Reason For Visit Reason For Visit Effective Dates Notes blood pressure followup 05/07/2016 blood pressure followup 03/02/2016 fever 10/31/2015 skin lesion 01/25/2014 cough 11/29/2013 blood pressure followup 11/10/2013 hypertension 05/10/2013 sore throat 02/23/2013 hypertension 01/12/2013 hypertension 11/30/2012 hypertension 11/09/2012 Results Observation Observation Code Item Item Code Result Date Pt Jki1320 PT 22.4 seconds 12/28/2016 Pt Bsj3108 INR 2.1 12/28/2016 Pt Ndg9628 Low Intensity - 1.5-2.0 12/28/2016 Pt Ptu1869 Mod intensity - 2.0-3.0 12/28/2016 Pt Kdn2427 Hi intensity - 3.0-4.0 12/28/2016 Pt Ova2353 PT 30.2 seconds 11/26/2016 Pt Gew1384 INR 3.1 11/26/2016 Pt Gah9837 Low Intensity - 1.5-2.0 11/26/2016 Pt Ode2435 Mod intensity - 2.0-3.0 11/26/2016 Pt Mof6346 Hi intensity - 3.0-4.0 11/26/2016 Pt Tzc3267 PT 34.3 seconds 11/20/2016 Pt Zgw3071 INR 3.7 11/20/2016 Pt Juj6290 Low Intensity - 1.5-2.0 11/20/2016 Pt Dhj2132 Mod intensity - 2.0-3.0 11/20/2016 Pt Uqa6377 Hi intensity - 3.0-4.0 11/20/2016 Pt Mph5116 PT 29.0 seconds 07/14/2016 Pt Ztb8201 INR 2.9 07/14/2016 Pt Rey9635 Low Intensity - 1.5-2.0 07/14/2016 Pt Gyy0979 Mod intensity - 2.0-3.0 07/14/2016 Pt Oqk9906 Hi intensity - 3.0-4.0 07/14/2016 Lipid Ord30 CHOL 236 mg/dL 07/14/2016 Lipid Ord30 HDL 36.0 mg/dl 07/14/2016 Lipid Ord30 TRIG 406 mg/dL 07/14/2016 Lipid Ord30 LDL Unable to calculate Due to elevated triglycerides mg/dL 07/14/2016 Lipid Ord30 C/HDL 6.6 Ratio 07/14/2016 Pt Wej2749 PT 30.0 seconds 03/02/2016 Pt Fdm3448 INR 3.1 03/02/2016 Pt Vco7228 Low Intensity - 1.5-2.0 03/02/2016 Pt Vjy1423 Mod intensity - 2.0-3.0 03/02/2016 Pt Smb6051 Hi intensity - 3.0-4.0 03/02/2016 %Hba1C Mnt258 % HbA1c 61769- 6 6.0 % 03/02/2016 %Hba1C Tlo703 Gluc Ave 126 mg/dL 03/02/2016 Tsh Ord6 hTSH II 0.68 uIU/mL 03/02/2016 Comp Metabolic Jbm682 NA 140 mEq/L 03/02/2016 Comp Metabolic Ggr605 K 4.1 mEq/L 03/02/2016 Comp Metabolic Sbg020 CL 105 mEq/L 03/02/2016 Comp Metabolic Vfm539 CO2 29.0 mEq/L 03/02/2016 Comp Metabolic Txj805 ANION GAP 10 03/02/2016 Comp Metabolic Wwj056 GLUCOSE 104 mg/dL 03/02/2016 Comp Metabolic Sin283 Creat 1.0 mg/dL 03/02/2016 Comp Metabolic Ymc094 eGFR 77 ml/min/1.73m2 03/02/2016 Comp Metabolic Zik492 BUN 15 mg/dL 03/02/2016 Comp Metabolic Zqm780 B/C Ratio 14.7 Ratio 03/02/2016 Comp Metabolic Vlb436 CALCIUM 8.9 mg/dL 03/02/2016 Comp Metabolic Dfx871 ALK PHOS 84 U/L 03/02/2016 Comp Metabolic Cnx852 AST(SGOT) 16 U/L 03/02/2016 Comp Metabolic Xpn251 ALT(SGPT) 17 U/L 03/02/2016 Comp Metabolic Rvm976 BILI T 0.5 mg/dL 03/02/2016 Comp Metabolic Tuu575 ALBUMIN 4.0 g/dL 03/02/2016 Comp Metabolic Qdm635 TPRO 6.6 g/dL 03/02/2016 Comp Metabolic Kkf703 GLOB 2.6 g/dL 03/02/2016 Comp Metabolic Evj461 A/G Ratio 1.5 Ratio 03/02/2016 Comp Metabolic Mma401 Osmo 281 mOsmo 03/02/2016 Cbc With Differential [...] % 03/02/2016 Cbc With Differential Ord2 [place]% 8.1 % 03/02/2016 Cbc With Differential Ord2 [...] K/ul 03/02/2016 Cbc With Differential Ord2 [place] ABS# 0.7 K/ul 03/02/2016 Cbc With Differential [...] fl 10/31/2015 Cbc With Differential Ord2 [place]% 12.7 % 10/31/2015 Cbc With Differential Ord2 [...] K/ul 10/31/2015 Cbc With Differential Ord2 [place] ABS# 0.7 K/ul 10/31/2015 Cbc With Differential [...] hTSH II 0.88 uIU/mL 10/31/2015 Comp Metabolic Bql459 NA 135 mEq/L 10/31/2015 Comp Metabolic Hgi650 K 4.2 mEq/L 10/31/2015 Comp Metabolic Zll875 CL 99 mEq/L 10/31/2015 Comp Metabolic Brm532 CO2 28.0 mEq/L 10/31/2015 Comp Metabolic Smu737 ANION GAP 12 10/31/2015 Comp Metabolic Aje429 GLUCOSE 107 mg/dL 10/31/2015 Comp Metabolic Yjb349 Creat 1.2 mg/dL 10/31/2015 Comp Metabolic Hfu968 eGFR 63 ml/min/1.73m2 10/31/2015 Comp Metabolic Ndg525 BUN 12 mg/dL 10/31/2015 Comp Metabolic Ori500 B/C Ratio 9.9 Ratio 10/31/2015 Comp Metabolic Wvl707 CALCIUM 8.4 mg/dL 10/31/2015 Comp Metabolic Eba338 ALK PHOS 134 U/L 10/31/2015 Comp Metabolic Run627 AST(SGOT) 20 U/L 10/31/2015 Comp Metabolic Bvm924 ALT(SGPT) 16 U/L 10/31/2015 Comp Metabolic Knw959 BILI T 0.4 mg/dL 10/31/2015 Comp Metabolic Gbj220 ALBUMIN 4.2 g/dL 10/31/2015 Comp Metabolic Eeu162 TPRO 7.2 g/dL 10/31/2015 Comp Metabolic Eyz687 GLOB 3.1 g/dL 10/31/2015 Comp Metabolic Jid526 A/G Ratio 1.4 Ratio 10/31/2015 Comp Metabolic Kkf925 Osmo 270 mOsmo 10/31/2015 Total Psa Ord10 PSA 2.66 ng/mL 10/31/2015 %Hba1C Xyf477 % HbA1c 74587- 6 6.1 % 10/31/2015 %Hba1C Civ380 Gluc Ave 128 mg/dL 10/31/2015 Pt Jot5347 PT 26.4 seconds 10/31/2015 Pt Gyn2277 INR 2.5 10/31/2015 Pt Tpu4767 Low Intensity - 1.5-2.0 10/31/2015 Pt Obp6885 Mod intensity - 2.0-3.0 10/31/2015 Pt Qte6596 Hi intensity - 3.0-4.0 10/31/2015 TSH 4534102 TSH 0.819 uIU/ML 11/10/2013 PT/MC 9978370 PRO TIME 24.5 SEC 11/10/2013 PT/MC 2587216 INR MCMC 2.3 11/10/2013 GFR CALC 6944085 GFR AA >60 ML/MIN 11/10/2013 GFR CALC 3827816 GFR NON-AA >60 ML/MIN 11/10/2013 CBC 1798082 WBC 8.4 10e9/L 11/10/2013 CBC 0865680 RBC 5.24 10e12/L 11/10/2013 CBC 8412940 HGB 15.4 g/dL 11/10/2013 CBC 3434626 HCT DET 43.8 % 11/10/2013 CBC 0766397 MCV 83.6 fL 11/10/2013 CBC 2711475 MCH 29.4 pg 11/10/2013 CBC 2655668 MCHC 35.2 g/dL 11/10/2013 CBC 5158419 PLT 250 10e9/L 11/10/2013 CBC 2561011 MPV 11.1 fL 11/10/2013 CBC 5890286 OANH % 58.1 % 11/10/2013 CBC 4451063 LY % 28.5 % 11/10/2013 CBC 5585374 MON % 10.2 % 11/10/2013 CBC 1932034 EOS % 2.1 % 11/10/2013 CBC 2795454 BASO % 1.1 % 11/10/2013 CBC 4764080 RDW 13.3 % 11/10/2013 CBC 4821911 ABS OANH 4.88 10e9/L 11/10/2013 CBC 0599684 ABS LYMPH 2.39 10e9/L 11/10/2013 CBC 0959107 ABS MONO 0.86 10e9/L 11/10/2013 CBC 5230594 ABS EOS 0.18 10e9/L 11/10/2013 CBC 5523473 ABS BASO 0.09 10e9/L 11/10/2013 CBC 9220352 RDW-SD 40.7 fL 11/10/2013 CHEM 14 0948636 AST 17 U/L 11/10/2013 CHEM 14 6257072 ALT 17 IU/L 11/10/2013 CHEM 14 7788502 BUN 15 MG/DL 11/10/2013 CHEM 14 1902071 ALBUMIN 4.3 GM/DL 11/10/2013 CHEM 14 0721021 CHLORIDE 103 MMOL/L 11/10/2013 CHEM 14 2219994 BILI TOT 0.6 MG/DL 11/10/2013 CHEM 14 4721663 ALK PHOS 104 U/L 11/10/2013 CHEM 14 1059115 SODIUM 137 MMOL/L 11/10/2013 CHEM 14 2449549 CREATININE 1.08 MG/DL 11/10/2013 CHEM 14 2192500 CALCIUM 8.9 MG/DL 11/10/2013 CHEM 14 9286600 POTASSIUM 4.0 MMOL/L 11/10/2013 CHEM 14 2345587 PROT TOT 7.0 GM/DL 11/10/2013 CHEM 14 1530430 GLUCOSE 84 MG/DL 11/10/2013 CHEM 14 9391330 BICARB 28 MMOL/L 11/10/2013 CHEM 14 2900480 ANION GAP 6 MEQ/L 11/10/2013 Review of Systems System Result Effective Dates Constitutional No recent illness 05/07/2016 Constitutional No [...] developed 05/10/2013 None Full Exam - General 1995 [...] happy 02/23/2013 None Full Exam - General 1995 Abdomen abdominal exam Overall: no tenderness 02/23/2013 [...] Procedure Codes Date THER/PROPH/DIAG INJ SC/IM CPT-4: 97702Rphggif 10/31/2015 TRIAMCINOLONE ACET INJ NOS CPT-4: A4857Mwkgccn 10/31/2015 ROUTINE VENIPUNCTURE CPT-4: 94633Lkrdird 11/10/2013 PRESCRIP TRANSMIT VIA ERX SY CPT-4: G4431Vunnwtq 02/23/2013 PRESCRIP TRANSMIT VIA ERX SY CPT-4: O5909Rponkxr 11/30/2012 PRESCRIP TRANSMIT VIA ERX SY CPT-4: C1815Llefjbf 11/09/2012 Vital Signs Date Vital 05/07/2016 Blood Pressure 1: 146/66 Code: 8480-6 BMI: 26.3 Code: 28736-0 Heart Rate 1: 69 bpm Height: 5'10" SpO2: 97% Weight: 183 lbs 03/02/2016 Blood Pressure 1: 190/108 Code: 8480-6 Blood Pressure 1: 170/100 Code: 8480-6 BMI: 26.5 Code: 20577-8 Heart Rate 1: 76 bpm Height: 5'10" SpO2: 98% Weight: 185 lbs 10/31/2015 Blood Pressure 1: 142/90 Code: 8480-6 Blood Pressure 1: 126/86 Code: 8480-6 BMI: 26.8 Code: 54627-6 Heart Rate 1: 99 bpm Height: 5'10" SpO2: 95% Temperature: 37.0 (C) / 98.6 (F) Weight: 187 lbs 01/25/2014 Blood Pressure 1: 180/90 Code: 8480-6 BMI: 26.3 Code: 84768-1 Heart Rate 1: 76 bpm Height: 5'10" Temperature: 37.4 (C) / 99.3 (F) Weight: 183 lbs 11/29/2013 Blood Pressure 1: 164/82 Code: 8480-6 Heart Rate 1: 80 bpm Temperature: 37.1 (C) / 98.7 (F) Weight: 187 lbs 11/10/2013 Blood Pressure 1: 156/94 Code: 8480-6 Heart Rate 1: 72 bpm Weight: 186 lbs 05/10/2013 Blood Pressure 1: 134/78 Code: 8480-6 BMI: 25.7 Code: 21321-8 Heart Rate 1: 84 bpm Height: 5'10" Weight: 179 lbs 02/23/2013 Blood Pressure 1: 138/90 Code: 8480-6 BMI: 27.0 Code: 86584-9 Heart Rate 1: 88 bpm Height: 5'10" Temperature: 37.0 (C) / 98.6 (F) Weight: 188 lbs 01/12/2013 Blood Pressure 1: 136/78 Code: 8480-6 BMI: 26.7 Code: 02576-7 Heart Rate 1: 96 bpm Height: 5'10" Weight: 186 lbs 11/30/2012 Blood Pressure 1: 170/90 Code: 8480-6 BMI: 26.8 Code: 41624-0 Heart Rate 1: 80 bpm Height: 5'10" Weight: 187 lbs 11/09/2012 Blood Pressure 1: 178/84 Code: 8480-6 BMI: 26.5 Code: 95229-2 Heart Rate 1: 86 bpm Height: 5'10" Respiratory Rate: 16 bpm Weight: 185 lbs Functional Status No Functional Status data History of Present Illness Symptom Name Status Result Effective Date Notes blood pressure followup Quality chronic 05/07/2016 None [...] pain Quality recurrent 05/10/2013 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 PATIENT, LEVEL III Diagnosis: Essential (primary) hypertension[ICD10: I10] Jennifer Fajardo MD, [facility] CPT-4: 25196 05/07/2016 ([id number]) 64631 EST. PATIENT, LEVEL IV Diagnosis: Essential (primary) hypertension[ICD10: I10] Diagnosis: Impaired fasting glucose[ICD10: R73.01] Diagnosis: Other intermediate (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[ICD10: Z79.899] Jennifer Fajardo MD, [facility] CPT-4: 74977 03/02/2016 ([id number]) 83733 EST. 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 PATIENT, LEVEL III Diagnosis: CELLULITIS[ICD9: 682.9] Mahnaz Fajardo MD, [facility] CPT-4: 72672 01/25/2014 ([id number]) 42493 EST. PATIENT, LEVEL III Diagnosis: Acute maxillary sinusitis[ICD9: 461.0] Diagnosis: Cough[ICD9: 786.2] Mahnaz Fajardo MD, [facility] CPT-4: 98188 11/29/2013 ([id number]) 66315 EST. PATIENT, LEVEL III Diagnosis: ESSENTIAL HYPERTENSION[SNOMED: 10995165] Diagnosis: Encounter for long-term (current) use of other high-risk medications[ICD9: V58.69] Jennifer Fajardo MD, [facility] CPT-4: 06149 11/10/2013 ([id number]) 55813 EST. PATIENT, LEVEL IV Diagnosis: ESSENTIAL HYPERTENSION[SNOMED: 76747095] Diagnosis: HYPERLIPIDEMIA[ICD9: 272.4] Mahnaz Fajardo MD, [facility] CPT-4: 47166 05/10/2013 ([id number]) 57507 EST. PATIENT, LEVEL III Diagnosis: Esophageal reflux[ICD9: 530.81] Diagnosis: Sore throat[ICD9: 462] Diagnosis: Allergic rhinitis[ICD9: 477.9] Mahnaz Fajardo MD, [facility] CPT-4: 85669 02/23/2013 ([id number]) 85328 EST. PATIENT, LEVEL III Diagnosis: ESSENTIAL HYPERTENSION[SNOMED: 71774691] Diagnosis: HYPERLIPIDEMIA[ICD9: 272.4] Mahnaz Fajardo MD, [facility] CPT-4: 76461 01/12/2013 ([id number]) 50265 EST. PATIENT, LEVEL IV Diagnosis: ESSENTIAL HYPERTENSION[SNOMED: 91303189] Diagnosis: HYPERLIPIDEMIA[ICD9: 272.4] Diagnosis: Lateral femoral cutaneous neuropathy[ICD9: 355.1] Mahnaz Fajardo MD, [facility] CPT-4: 09999 11/30/2012 ([id number]) OFFICE VISIT, NEW - LEVEL 4 Diagnosis: ESSENTIAL HYPERTENSION[SNOMED: 94308977] Diagnosis: Renal artery stenosis[ICD9: 440.1] Diagnosis: Hip pain[ICD9: 719.45] Mahnaz Fajardo MD, [facility] CPT-4: 86699 11/09/2012 Plan of Care Planned Activity Notes Codes Status Date Appointment: Gayle Morris WPtel: [facility] (30 min) Complex 02/24/2017 Patient Education: Patient Medication Summary Completed 11/20/2016 Care Plan: Pt Pending 11/20/2016 Appointment: Jennifer Perez WPtel: [phone] (30 min) Complex 11/05/2016 Visit Plan: Hypertension - well controlled - continue with current medications, continue with no added salt diet. Pt has been encouraged to exercise daily.The pt has been advised to call the office if there are any acute concerns about change in blood pressure readings at home. 05/07/2016 Appointment: Jennifer Perez WPtel: [phone] (30 min) Complex 05/07/2016 Patient Education: [...] 03/02/2016 Care Plan: Referral Order SNOMED-CT : [id number] Pending 03/02/2016 Visit Plan: Hypertension - well [...] of pressure. 01/25/2014 Appointment: Mahnaz Fajardo WPtel: [facility] Other 01/25/2014 Patient Education: Patient Medication Summary Completed 01/25/2014 Appointment: Mahnaz Fajardo WPtel: [address] [place] [phone] Sick 11/29/2013 Patient Education: Patient Medication Summary [...] concerns.Coumadin-check PT/INR 11/10/2013 Appointment: Jennifer Perez WPtel: [address] [place], [place] [phone] Follow up 11/10/2013 Patient Education: Patient Medication Summary Completed 11/10/2013 Patient Education: Hypertension Completed 11/10/2013 Appointment: Mahnaz Fajardo WPtel: [address] [place] [phone] Follow up 11/08/2013 Visit Plan: Hypertension - [...] to medications. 05/10/2013 Appointment: Mahnaz Fajardo WPtel: [address] [place] [phone] Follow up 05/10/2013 Patient Education: Patient Medication Summary Completed 05/10/2013 Patient Education: Hypertension Completed 05/10/2013 Appointment: Mahnaz Fajardo WPtel: [address] [place] [phone] Sick 02/24/2013 Visit Plan: Esophageal Reflux - [...] one month. 01/12/2013 Appointment: Mahnaz Fajardo WPtel: [address] [place] [phone] Follow up 01/12/2013 Patient Education: Patient Medication Summary Completed 01/12/2013 Patient Education: Hypertension Completed 01/12/2013 Appointment: Mahnaz Fajardo WPtel: [address] [place] [phone] Follow up 01/11/2013 Visit Plan: Nerve pain [...] and to assure normal liver response to medications.[place] red Krill oil twice daily 11/30/2012 Appointment: Mahnaz Fajardo WPtel: [address] [facility] Follow up 11/30/2012 Patient Education: Patient [...] arthritis. 11/09/2012 Appointment: Mahnaz Fajardo WPtel: [phone] [facility] New Patient 11/09/2012 Patient Education: Patient Medication [...] improvement. Kenalog injection today in the office. [place] red Krill oil twice daily increase the [...] to assure normal liver response to medications. [place] red Krill oil twice daily . Hypertension [...] to assure normal liver response to medications. . Hypertension - well controlled - continue with current medications, continue with no added salt diet. Pt has been encouraged to exercise daily. The pt has been advised to call the office if there are any acute concerns about change in blood pressure readings at home.
--- OUTSIDE RECORDS SUMMARY | 2019-02-13 12:11 | XMS REPORT | CCD ---
Author Author [facility] Organization [facility] Address [address] [place] [address] Phone Care Team Providers Care [employer] Canning Leader Name Role Phone PP Unavailable CCM Unavailable Summary Purpose Interface Exchange Insurance Providers Payer name Policy type / Coverage type Covered alliance party ID Effective Begin Date Effective End Date [employer] Medicare Part B [id number] 2016 Unknown Family history Mother Diagnosis Age At Onset Stroke Unknown Father Diagnosis Age At Onset Hypertension Unknown Sister Diagnosis Age At Onset Hypertension Unknown Social History Social History Element Codes Description Effective Dates Marital status Unknown 11/09/[address]: 5709479 Former smoker quit 1988 11/09/2012 Allergies, Adverse Reactions, Alerts Substance Reaction Codes Entered Date Inactivated Date Status ASPIRIN (TARTRAZINE ONLY) hives, Unknown 11/09/2012 No Inactive Date Active Past Medical History Illness Codes Condition Status Onset Date Resolved Date Essential (primary) hypertension ICD-9: 401.1 ICD-10: I10 Active 01/03/2019 Unknown Other chcf (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 ICD-9: V58.69 ICD-10: Z79.899 [...] ICD-9: 401.1 ICD-10: I10 01/03/2019 Active Other chcf (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 ICD-9: V58.69 ICD-10: Z79.899 [...] Fill Instructions Flomax 0.4 mg capsule RxNorm: 108905 TAKE 2 CAPSULES BY MOUTH DAILY 11/07/2018 11/01/2019 Active - First Attempt Ref: [id number] Coreg 12.5 mg tablet RxNorm: 804752 TAKE 1 TABLET BY MOUTH TWO TIMES DAILY 09/21/2018 03/19/2019 Active - Ref: [id number] lisinopril 20 mg tablet RxNorm: 314461 1 Tablet(s) PO BID 05/17/2018 08/09/2019 Active Augmentin 500 mg-125 mg tablet RxNorm: 244290 1 Tablet(s) PO TID 04/29/2018 05/08/2018 Inactive Diflucan 150 mg tablet RxNorm: 720853 1 Tablet(s) PO daily 04/29/2018 05/03/2018 Inactive lisinopril 40 mg tablet RxNorm: 007140 1/2 Tablet(s) PO BID 03/09/2018 03/03/2019 Active change from lisinopril 20 BID lisinopril 40 mg tablet RxNorm: 573129 1/2 Tablet(s) PO BID 03/09/2018 03/08/2018 Inactive Coreg 12.5 mg tablet RxNorm: 022553 TAKE 1 TABLET BY MOUTH TWO TIMES DAILY 02/23/2018 08/21/2018 Inactive - Ref: [id number] amoxicillin 500 mg capsule RxNorm: 380621 1 Capsule(s) PO TID 10/19/2017 10/28/2017 Inactive amoxicillin 500 mg capsule RxNorm: 222593 1 Capsule(s) PO TID 10/19/2017 10/18/2017 Inactive Kenalog 40 mg/mL suspension for injection RxNorm: 5951231 1 Milliliter(s) Inj 10/06/2017 10/06/2017 Inactive Zithromax Z-[place] 250 mg tablet RxNorm: 553572 1 Tablet(s) PO UD 10/06/2017 02/22/2018 Inactive warfarin 3 mg tablet RxNorm: 394607 TAKE 1 TABLET BY MOUTH ON WEDNESDAY , WEDNESDAY , WEDNESDAY,WEDNESDAY, WEDNESDAY THEN 1 AND 1/2 TABLETS BY MOUTH ON WEDNESDAY AND Wednesday09/30/2017 06/21/2019 Active - Ref: [id number] Flomax 0.4 mg capsule RxNorm: 578083 TAKE 2 CAPSULES BY MOUTH DAILY 09/30/2017 11/06/2018 Inactive - Ref: [id number] omeprazole 20 mg capsule,delayed release RxNorm: 791070 1 Capsule(s) PO daily 06/23/2017 07/22/2017 Inactive lisinopril 20 mg tablet RxNorm: 862847 1 Tablet(s) PO BID 04/21/2017 03/08/2018 Inactive Coreg 12.5 mg tablet RxNorm: 184741 1 Tablet(s) PO BID 04/21/2017 05/20/2017 Inactive Coreg 12.5 mg tablet RxNorm: 312383 1 Tablet(s) PO BID 04/21/2017 04/20/2017 Inactive Augmentin 500 mg-125 mg tablet RxNorm: 907663 1 Tablet(s) PO TID 04/14/2017 04/22/2017 Inactive Diflucan 150 mg tablet RxNorm: 862445 1 Tablet(s) PO daily 04/14/2017 04/18/2017 Inactive Flomax 0.4 mg capsule RxNorm: 857916 Take 2 capsules by mouth daily 03/31/2017 09/29/2017 Inactive - First Attempt Ref: [id number] lisinopril 20 mg tablet RxNorm: 186795 1 Tablet(s) PO BID 03/11/2017 04/20/2017 Inactive Voltaren 1 % topical gel RxNorm: 359079 1 Application TOP BID as needed 03/09/2017 No Stop Date Active lisinopril 20 mg tablet RxNorm: 921232 2 Tablet(s) PO BID 02/26/2017 03/10/2017 Inactive cyclobenzaprine 5 mg tablet RxNorm: 956635 1 Tablet(s) PO TID as needed muscle spasms 02/24/2017 02/28/2017 Inactive warfarin 3 mg tablet RxNorm: 239278 1 Tablet(s) PO daily 11/23/2016 09/29/2017 Inactive lisinopril 20 mg tablet RxNorm: 149551 Take 2 tablets by mouth twice a day 09/22/2016 02/25/2017 Inactive - Ref: [id number] lisinopril 20 mg tablet RxNorm: 143908 1 Tablet(s) PO BID 05/07/2016 02/25/2017 Inactive First Attempt Coreg 25 mg tablet RxNorm: 068144 1 Tablet(s) PO BID 05/07/2016 02/23/[address] Reddy lisinopril 20 mg tablet RxNorm: 609473 1 Tablet(s) PO daily Take 2 tablets by mouth bid 05/07/2016 05/06/2016 Inactive First Attempt Flomax 0.4 mg capsule RxNorm: 639083 Take 2 capsules by mouth daily 03/15/2016 03/30/2017 Inactive - First Attempt lisinopril 20 mg tablet RxNorm: 392124 2 Tablet(s) PO BID Take 2 tablets by mouth bid 03/04/2016 05/06/2016 Inactive First Attempt lisinopril 20 mg tablet RxNorm: 628928 1 Tablet(s) PO BID Take 2 tablets by mouth daily 03/02/2016 03/03/2016 Inactive First Attempt Phenergan with Codeine Syrup RxNorm: 5 Milliliter(s) PO Q6 PRN 10/31/2015 No Stop Date Active Kenalog 40 mg/mL suspension for injection RxNorm: 4059380 Milliliter(s) Inj 10/31/2015 10/31/2015 Inactive warfarin 3 mg tablet RxNorm: 342737 Tablet(s) Take 1 tablet by mouth on tues,wed,thur,sat and sun and 1 and 1/2 tablets by mouth on wed and wed10/31/2015 07/23/2016 Inactive Zithromax Z-[place] 250 mg tablet RxNorm: 825057 1 Tablet(s) PO UD 10/31/2015 11/04/2015 Inactive zpack Coreg 3.125 mg tablet RxNorm: 264906 1 Tablet(s) PO BID 06/19/2015 05/06/2016 Inactive warfarin 3 mg tablet RxNorm: 688098 Take 1 tablet by mouth on tues,wed,thur,sat and sun and 1 and 1/2 tablets by mouth on wed and wed06/06/2015 06/05/2015 Inactive 2nd Attempt warfarin 3 mg tablet RxNorm: 647839 Tablet(s) Take 1 tablet by mouth on tu,wed,thur,sat and sun and 1 and 1/2 tablets by mouth on wed and wed06/06/2015 10/30/2015 Inactive 2nd Attempt Flomax 0.4 mg capsule RxNorm: 008959 Take 2 capsules by mouth daily 04/29/2015 01/23/2016 Inactive First Attempt lisinopril 10 mg tablet RxNorm: 247713 Take 2 tablets by mouth daily 04/29/2015 01/23/2016 Inactive First Attempt warfarin 3 mg tablet RxNorm: 886698 one wed thur sat sun 4.5mg wednesday Tablet(s) PO daily 07/25/2014 06/05/2015 Inactive Flomax 0.4 mg capsule RxNorm: 499450 2 Capsule(s) PO daily 07/25/2014 04/28/2015 Inactive lisinopril 10 mg tablet RxNorm: 816267 2 Tablet(s) PO daily 07/25/2014 04/28/2015 Inactive Coreg 3.125 mg tablet RxNorm: 317985 1 Tablet(s) PO BID 07/25/2014 06/18/2015 Inactive cephalexin 500 mg capsule RxNorm: 775647 1 Capsule(s) PO QID 11/29/2013 10/30/2015 Inactive lisinopril 20 mg tablet RxNorm: 037945 1 Tablet(s) PO BID 11/10/2013 03/09/2014 Inactive Flomax 0.4 mg capsule RxNorm: 428973 2 Capsule(s) PO daily 10/12/2013 07/24/2014 Inactive Coreg 3.125 mg tablet RxNorm: 228579 1 Tablet(s) PO BID 10/12/2013 07/24/2014 Inactive lisinopril 10 mg tablet RxNorm: 301230 2 Tablet(s) PO daily 10/12/2013 11/09/2013 Inactive warfarin 3 mg tablet RxNorm: 226908 one wed sat sun 4.5mg wednesday Tablet(s) PO daily 10/12/2013 07/24/2014 Inactive o Flomax 0.4 mg capsule RxNorm: 631706 2 Capsule(s) PO daily 06/05/2013 10/11/2013 Inactive Zetia 10 mg tablet RxNorm: 029170 1 Tablet(s) PO daily 05/16/2013 05/15/2013 Inactive Zetia 10 mg tablet RxNorm: 011090 1 Tablet(s) PO daily 05/16/2013 09/12/2013 Inactive Carafate 100 mg/mL Oral Susp RxNorm: 819815 10 Milliliter(s) PO QID 05/10/2013 10/30/2015 Inactive dispense one month supply Flomax 0.4 mg capsule RxNorm: 243434 2 Capsule(s) PO daily 05/10/2013 06/04/2013 Inactive Carafate 100 mg/mL Oral Susp RxNorm: 927927 10 Milliliter(s) PO QID 02/23/2013 04/23/2013 Inactive dispense one month supply gabapentin 100 mg capsule RxNorm: 513139 1 Capsule(s) PO daily one at bedtime and one up to three times daily as needed for nerve pain in leg 01/16/2013 05/09/2013 Inactive gabapentin 100 mg capsule RxNorm: 789393 1 Capsule(s) PO daily one at bedtime and one up to three times daily as needed for nerve pain in leg 01/12/2013 01/15/2013 Inactive warfarin 3 mg tablet RxNorm: 119618 Tablet(s) PO 12/05/2012 10/11/2013 Inactive one josé luis brooks sat4.5 mg mon frid lisinopril 10 mg tablet RxNorm: 288733 2 Tablet(s) PO daily 11/30/2012 06/27/2013 Inactive gabapentin 100 mg capsule RxNorm: 526641 1 Capsule(s) PO Q8 PRN one at bedtime and one up to three times daily as needed for nerve pain in leg 11/30/2012 01/11/2013 Inactive Coreg 3.125 mg tablet RxNorm: 670819 1 Tablet(s) PO BID 11/09/2012 01/07/2013 Inactive lisinopril 10 mg tablet RxNorm: 554593 1.5 Tablet(s) PO daily 11/09/2012 11/29/2012 Inactive Co Q-10 oral RxNorm: 63706 oral No Start Date Active famotidine 20 mg tablet RxNorm: 133850 1 Tablet(s) PO QAM No Start Date Active Coreg 12.5 mg tablet RxNorm: 240518 1 Tablet(s) PO BID No Start Date 04/20/2017 Inactive Voltaren 1 % topical gel RxNorm: 982779 1 Application TOP BID as needed No Start Date 03/08/2017 Inactive lisinopril 20 mg tablet RxNorm: 450860 1 Tablet(s) PO BID No Start Date 05/16/2018 Inactive warfarin 3 mg tablet RxNorm: 979947 Tablet(s) PO No Start Date 12/04/2012 Inactive one josé luis brooks sat4.5 mg wed frid Flomax 0.4 mg capsule RxNorm: 174232 1 Capsule(s) PO daily No Start Date 05/09/2013 Inactive niacin 500 mg tablet RxNorm: 367418 1 Tablet(s) PO daily No Start Date 03/01/2016 Inactive Medication Administered Medication Codes Instructions Start Date Status Kenalog 40 mg/mL suspension for injection RxNorm: 1711555 1Milliliter 10/06/2017 No longer Active Kenalog 40 mg/mL suspension for injection RxNorm: 7858060 Milliliter 10/31/2015 No longer Active Immunizations No Immunization data Assessments Condition Codes Effective Dates Other long term care administrator (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 ICD-10: Z79.899 ICD-9: V58.69 [...] sinusitis ICD-9: 461.0 11/29/2013 ESSENTIAL HYPERTENSION SNOMED: 72068701 ICD-9: 401.9 11/10/2013 Encounter for long-term (current) [...] Code Item Item Code Result Date Pt Nsp2406 PT 24.1 seconds 01/03/2019 Pt Jbv3255 INR 2.2 01/03/2019 Pt Lku6088 Low Intensity - 1.5-2.0 01/03/2019 Pt Xof5826 Mod intensity - 2.0-3.0 01/03/2019 Pt Sps3748 Hi intensity - 3.0-4.0 01/03/2019 Pt Rmo0277 PT 25.5 seconds 08/29/2018 Pt Amo5832 INR 2.4 08/29/2018 Pt Xdm2446 Low Intensity - 1.5-2.0 08/29/2018 Pt Fbf0231 Mod intensity - 2.0-3.0 08/29/2018 Pt Dzr5532 Hi intensity - 3.0-4.0 08/29/2018 Pt Exg5093 PT 35.9 seconds 08/11/2018 Pt Ekg2323 INR 3.6 08/11/2018 Pt Tgq4445 Low Intensity - 1.5-2.0 08/11/2018 Pt Gxr9800 Mod intensity - 2.0-3.0 08/11/2018 Pt Jsk5092 Hi intensity - 3.0-4.0 08/11/2018 Pt Dvp0949 PT 27.2 seconds 06/16/2018 Pt Yfx2612 INR 2.5 06/16/2018 Pt Wft0295 Low Intensity - 1.5-2.0 06/16/2018 Pt Jwr8135 Mod intensity - 2.0-3.0 06/16/2018 Pt Mff2272 Hi intensity - 3.0-4.0 06/16/2018 Pt Rzn3600 PT 38.0 seconds 04/04/2018 Pt Ama9701 INR 3.8 04/04/2018 Pt Gwp4532 Low Intensity - 1.5-2.0 04/04/2018 Pt Owr5422 Mod intensity - 2.0-3.0 04/04/2018 Pt Rwr7561 Hi intensity - 3.0-4.0 04/04/2018 Metabolic Ord15 [...] Magnesium Ord90 Mag 1.9 mg/dL 04/04/2018 Pt Xnd8808 PT 21.1 seconds 03/08/2018 Pt Pad8166 INR 1.8 03/08/2018 Pt Mib2464 Low Intensity - 1.5-2.0 03/08/2018 Pt Nwe3893 Mod intensity - 2.0-3.0 03/08/2018 Pt Huq3447 Hi intensity - 3.0-4.0 03/08/2018 Pt Egk4273 PT 37.2 seconds 02/23/2018 Pt Ipc0850 INR 3.7 02/23/2018 Pt Udb6022 Low Intensity - 1.5-2.0 02/23/2018 Pt Lqc4158 Mod intensity - 2.0-3.0 02/23/2018 Pt Vmy5270 Hi intensity - 3.0-4.0 02/23/2018 Pt Xyv9905 PT 33.4 seconds 12/28/2017 Pt Rnb6499 INR 3.2 12/28/2017 Pt Dmf7730 Low Intensity - 1.5-2.0 12/28/2017 Pt Orr6502 Mod intensity - 2.0-3.0 12/28/2017 Pt Oay3981 Hi intensity - 3.0-4.0 12/28/2017 Pt Tsd0973 PT 30.2 seconds 10/06/2017 Pt Zig5974 INR 2.9 10/06/2017 Pt Xpt7575 Low Intensity - 1.5-2.0 10/06/2017 Pt Beg3903 Mod intensity - 2.0-3.0 10/06/2017 Pt Gpz1899 Hi intensity - 3.0-4.0 10/06/2017 Pt Hag3114 PT 33.3 seconds 06/23/2017 Pt Fqg8162 INR 3.2 06/23/2017 Pt Wmf4802 Low Intensity - 1.5-2.0 06/23/2017 Pt Ojh0707 Mod intensity - 2.0-3.0 06/23/2017 Pt Zmf7666 Hi intensity - 3.0-4.0 06/23/2017 Tsh Ord6 hTSH II 0.86 uIU/mL 02/24/2017 C-Reactive Protein Qnt Crqnt CRP 0.2 mg/dl 02/24/2017 Comp Metabolic Opb950 NA 139 mEq/L 02/24/2017 Comp Metabolic Uso210 K 3.9 mEq/L 02/24/2017 Comp Metabolic Zpg404 CL 105 mEq/L 02/24/2017 Comp Metabolic Fhw090 CO2 27.0 mEq/L 02/24/2017 Comp Metabolic Jaw826 ANION GAP 11 02/24/2017 Comp Metabolic Wzl113 GLUCOSE 93 mg/dL 02/24/2017 Comp Metabolic Pwd301 Creat 1.1 mg/dL 02/24/2017 Comp Metabolic Yvw664 eGFR 73 ml/min/1.73m2 02/24/2017 Comp Metabolic Mpp572 BUN 14 mg/dL 02/24/2017 Comp Metabolic Kye729 B/C Ratio 13.1 Ratio 02/24/2017 Comp Metabolic Zaj862 CALCIUM 8.4 mg/dL 02/24/2017 Comp Metabolic Zue550 ALK PHOS 89 U/L 02/24/2017 Comp Metabolic Yjf539 AST(SGOT) 18 U/L 02/24/2017 Comp Metabolic Aev165 ALT(SGPT) 21 U/L 02/24/2017 Comp Metabolic Mgf896 BILI T 0.5 mg/dL 02/24/2017 Comp Metabolic Trz136 ALBUMIN 3.8 g/dL 02/24/2017 Comp Metabolic Ikj185 TPRO 6.5 g/dL 02/24/2017 Comp Metabolic Bko990 GLOB 2.7 g/dL 02/24/2017 Comp Metabolic Zaq889 A/G Ratio 1.4 Ratio 02/24/2017 Comp Metabolic Llv058 Osmo 278 mOsmo 02/24/2017 Sed Rate Ord21 ESR 25 mm/hr 02/24/2017 Pt Dtx3278 PT 31.7 seconds 02/24/2017 Pt Ipn2274 INR 3.3 02/24/2017 Pt Ynn9662 Low Intensity - 1.5-2.0 02/24/2017 Pt Vsn6240 Mod intensity - 2.0-3.0 02/24/2017 Pt Lrm4720 Hi intensity - 3.0-4.0 02/24/2017 Cbc With [...] 29.6 pg 02/24/2017 Cbc With Differential Ord2 [place]% 9.7 % 02/24/2017 Cbc With Differential Ord2 [...] 2.62 K/ul 02/24/2017 Cbc With Differential Ord2 [place] ABS# 0.8 K/ul 02/24/2017 Cbc With Differential Ord2 Eos ABS# 0.2 K/ul 02/24/2017 Cbc With Differential Ord2 Baso ABS# 0.1 K/ul 02/24/2017 Pt Zca6597 PT 22.4 seconds 12/28/2016 Pt Ugv9111 INR 2.1 12/28/2016 Pt Zac6947 Low Intensity - 1.5-2.0 12/28/2016 Pt Krc3329 Mod intensity - 2.0-3.0 12/28/2016 Pt Eun4878 Hi intensity - 3.0-4.0 12/28/2016 Pt Wcv9382 PT 30.2 seconds 11/26/2016 Pt Csm7707 INR 3.1 11/26/2016 Pt Syt8375 Low Intensity - 1.5-2.0 11/26/2016 Pt Hmx5958 Mod intensity - 2.0-3.0 11/26/2016 Pt Avk1218 Hi intensity - 3.0-4.0 11/26/2016 Pt Sxz5041 PT 34.3 seconds 11/20/2016 Pt Omt0777 INR 3.7 11/20/2016 Pt Jyu1592 Low Intensity - 1.5-2.0 11/20/2016 Pt Iji0578 Mod intensity - 2.0-3.0 11/20/2016 Pt Lzs7932 Hi intensity - 3.0-4.0 11/20/2016 Pt Xkw8813 PT 29.0 seconds 07/14/2016 Pt Lbi3306 INR 2.9 07/14/2016 Pt Qzb2616 Low Intensity - 1.5-2.0 07/14/2016 Pt Jik2362 Mod intensity - 2.0-3.0 07/14/2016 Pt Myc5831 Hi intensity - 3.0-4.0 07/14/2016 Lipid Ord30 CHOL 236 mg/dL 07/14/2016 Lipid Ord30 HDL 36.0 mg/dl 07/14/2016 Lipid Ord30 TRIG 406 mg/dL 07/14/2016 Lipid Ord30 LDL Unable to calculate Due to elevated triglycerides mg/dL 07/14/2016 Lipid Ord30 C/HDL 6.6 Ratio 07/14/2016 Pt Jcj4668 PT 30.0 seconds 03/02/2016 Pt Fsg7268 INR 3.1 03/02/2016 Pt Lvr3366 Low Intensity - 1.5-2.0 03/02/2016 Pt Hkm2948 Mod intensity - 2.0-3.0 03/02/2016 Pt Udj9557 Hi intensity - 3.0-4.0 03/02/2016 %Hba1C Gfx255 % HbA1c 53292- 6 6.0 % 03/02/2016 %Hba1C Yvu944 Gluc Ave 126 mg/dL 03/02/2016 Tsh Ord6 hTSH II 0.68 uIU/mL 03/02/2016 Comp Metabolic Wil775 NA 140 mEq/L 03/02/2016 Comp Metabolic Kne042 K 4.1 mEq/L 03/02/2016 Comp Metabolic Ppl049 CL 105 mEq/L 03/02/2016 Comp Metabolic Mdp459 CO2 29.0 mEq/L 03/02/2016 Comp Metabolic Yxa625 ANION GAP 10 03/02/2016 Comp Metabolic Kqy488 GLUCOSE 104 mg/dL 03/02/2016 Comp Metabolic Gfq010 Creat 1.0 mg/dL 03/02/2016 Comp Metabolic Pnt725 eGFR 77 ml/min/1.73m2 03/02/2016 Comp Metabolic Nzo644 BUN 15 mg/dL 03/02/2016 Comp Metabolic Nwd138 B/C Ratio 14.7 Ratio 03/02/2016 Comp Metabolic Dtb090 CALCIUM 8.9 mg/dL 03/02/2016 Comp Metabolic Qoy725 ALK PHOS 84 U/L 03/02/2016 Comp Metabolic Qyw556 AST(SGOT) 16 U/L 03/02/2016 Comp Metabolic Vkx906 ALT(SGPT) 17 U/L 03/02/2016 Comp Metabolic Xim843 BILI T 0.5 mg/dL 03/02/2016 Comp Metabolic Nqy007 ALBUMIN 4.0 g/dL 03/02/2016 Comp Metabolic Tdr688 TPRO 6.6 g/dL 03/02/2016 Comp Metabolic Kye160 GLOB 2.6 g/dL 03/02/2016 Comp Metabolic Nau964 A/G Ratio 1.5 Ratio 03/02/2016 Comp Metabolic Bvh313 Osmo 281 mOsmo 03/02/2016 Cbc With Differential [...] 29.3 pg 03/02/2016 Cbc With Differential Ord2 [place]% 8.1 % 03/02/2016 Cbc With Differential Ord2 [...] 2.29 K/ul 03/02/2016 Cbc With Differential Ord2 [place] ABS# 0.7 K/ul 03/02/2016 Cbc With Differential [...] 28.8 pg 10/31/2015 Cbc With Differential Ord2 [place]% 12.7 % 10/31/2015 Cbc With Differential Ord2 [...] 1.31 K/ul 10/31/2015 Cbc With Differential Ord2 [place] ABS# 0.7 K/ul 10/31/2015 Cbc With Differential [...] hTSH II 0.88 uIU/mL 10/31/2015 Comp Metabolic Ooz688 NA 135 mEq/L 10/31/2015 Comp Metabolic Rdl929 K 4.2 mEq/L 10/31/2015 Comp Metabolic Sga015 CL 99 mEq/L 10/31/2015 Comp Metabolic Wwn827 CO2 28.0 mEq/L 10/31/2015 Comp Metabolic Cfb213 ANION GAP 12 10/31/2015 Comp Metabolic Lqv405 GLUCOSE 107 mg/dL 10/31/2015 Comp Metabolic Qay279 Creat 1.2 mg/dL 10/31/2015 Comp Metabolic Nfk994 eGFR 63 ml/min/1.73m2 10/31/2015 Comp Metabolic Cfw633 BUN 12 mg/dL 10/31/2015 Comp Metabolic Hon644 B/C Ratio 9.9 Ratio 10/31/2015 Comp Metabolic Zhc038 CALCIUM 8.4 mg/dL 10/31/2015 Comp Metabolic Hpf697 ALK PHOS 134 U/L 10/31/2015 Comp Metabolic Ssd447 AST(SGOT) 20 U/L 10/31/2015 Comp Metabolic Xzo614 ALT(SGPT) 16 U/L 10/31/2015 Comp Metabolic Sip737 BILI T 0.4 mg/dL 10/31/2015 Comp Metabolic Wur342 ALBUMIN 4.2 g/dL 10/31/2015 Comp Metabolic Fgk039 TPRO 7.2 g/dL 10/31/2015 Comp Metabolic Bmw201 GLOB 3.1 g/dL 10/31/2015 Comp Metabolic Omv223 A/G Ratio 1.4 Ratio 10/31/2015 Comp Metabolic Wru272 Osmo 270 mOsmo 10/31/2015 Total Psa Ord10 PSA 2.66 ng/mL 10/31/2015 %Hba1C Iuw365 % HbA1c 31653- 6 6.1 % 10/31/2015 %Hba1C Wdx876 Gluc Ave 128 mg/dL 10/31/2015 Pt Bhu0671 PT 26.4 seconds 10/31/2015 Pt Okw8905 INR 2.5 10/31/2015 Pt Irw0280 Low Intensity - 1.5-2.0 10/31/2015 Pt Yqk2200 Mod intensity - 2.0-3.0 10/31/2015 Pt Jxw2308 Hi intensity - 3.0-4.0 10/31/2015 TSH 4810989 TSH 0.819 uIU/ML 11/10/2013 PT/MC 8173184 PRO TIME 24.5 SEC 11/10/2013 PT/MC 4612130 INR MCMC 2.3 11/10/2013 GFR CALC 9214924 GFR AA >60 ML/MIN 11/10/2013 GFR CALC 6692899 GFR NON-AA >60 ML/MIN 11/10/2013 CBC 4462414 WBC 8.4 10e9/L 11/10/2013 CBC 8589707 RBC 5.24 10e12/L 11/10/2013 CBC 7287137 HGB 15.4 g/dL 11/10/2013 CBC 6681143 HCT DET 43.8 % 11/10/2013 CBC 5395795 MCV 83.6 fL 11/10/2013 CBC 5368069 MCH 29.4 pg 11/10/2013 CBC 0095763 MCHC 35.2 g/dL 11/10/2013 CBC 9951917 PLT 250 10e9/L 11/10/2013 CBC 0959058 MPV 11.1 fL 11/10/2013 CBC 0846168 OANH % 58.1 % 11/10/2013 CBC 8096169 LY % 28.5 % 11/10/2013 CBC 5430413 MON % 10.2 % 11/10/2013 CBC 9299046 EOS % 2.1 % 11/10/2013 CBC 8503813 BASO % 1.1 % 11/10/2013 CBC 2591141 RDW 13.3 % 11/10/2013 CBC 2305472 ABS OANH 4.88 10e9/L 11/10/2013 CBC 7394677 ABS LYMPH 2.39 10e9/L 11/10/2013 CBC 9842326 ABS MONO 0.86 10e9/L 11/10/2013 CBC 2587585 ABS EOS 0.18 10e9/L 11/10/2013 CBC 3976884 ABS BASO 0.09 10e9/L 11/10/2013 CBC 6651615 RDW-SD 40.7 fL 11/10/2013 CHEM 14 3651760 AST 17 U/L 11/10/2013 CHEM 14 9214649 ALT 17 IU/L 11/10/2013 CHEM 14 6512090 BUN 15 MG/DL 11/10/2013 CHEM 14 0183613 ALBUMIN 4.3 GM/DL 11/10/2013 CHEM 14 4947863 CHLORIDE 103 MMOL/L 11/10/2013 CHEM 14 9197821 BILI TOT 0.6 MG/DL 11/10/2013 CHEM 14 9263589 ALK PHOS 104 U/L 11/10/2013 CHEM 14 1559271 SODIUM 137 MMOL/L 11/10/2013 CHEM 14 3466098 CREATININE 1.08 MG/DL 11/10/2013 CHEM 14 7593675 CALCIUM 8.9 MG/DL 11/10/2013 CHEM 14 6811004 POTASSIUM 4.0 MMOL/L 11/10/2013 CHEM 14 1472098 PROT TOT 7.0 GM/DL 11/10/2013 CHEM 14 9356064 GLUCOSE 84 MG/DL 11/10/2013 CHEM 14 4397973 BICARB 28 MMOL/L 11/10/2013 CHEM 14 2269427 ANION GAP 6 MEQ/L 11/10/2013 Review of [...] Procedure Codes Date THER/PROPH/DIAG INJ SC/IM CPT-4: 81655 10/06/2017 TRIAMCINOLONE ACET INJ NOS CPT-4: J3301 10/06/2017 THER/PROPH/DIAG INJ SC/IM CPT-4: 96628 10/31/2015 TRIAMCINOLONE ACET INJ NOS CPT-4: J3301 10/31/2015 ROUTINE VENIPUNCTURE CPT- 4: 83296 11/10/2013 PRESCRIP TRANSMIT VIA ERX SY CPT-4: G8553 02/23/2013 PRESCRIP TRANSMIT VIA ERX SY CPT-4: G8553 11/30/2012 PRESCRIP TRANSMIT VIA ERX SY CPT-4: G8553 11/09/2012 Vital Signs Date Vital 01/03/2019 Blood Pressure 1: 134/76 Code: 8480-6 BMI: 29.3 Code: 91174-1 Heart Rate 1: 58 bpm Height: 5'10" SpO2: 96% Weight: 204 lbs 04/15/2018 Blood Pressure 1: 150/88 Code: 8480-6 BMI: 28.1 Code: 55654-6 Heart Rate 1: 84 bpm Height: 5'10" SpO2: 98% Weight: 196 lbs 12/01/2017 Blood Pressure 1: 154/78 Code: 8480-6 BMI: 28.4 Code: 31721-9 Heart Rate 1: 87 bpm Height: 5'10" SpO2: 98% Weight: 198 lbs 10/06/2017 Blood Pressure 1: 136/74 Code: 8480-6 BMI: 38.0 Code: 33607-4 Heart Rate 1: 75 bpm Height: 5' SpO2: 95% Temperature: 36.8 (C) / 98.2 (F) Weight: 194 lbs 8 oz 06/23/2017 Blood Pressure 1: 152/82 Code: 8480-6 BMI: 28.3 Code: 18151-8 Heart Rate 1: 58 bpm Height: 5'10" SpO2: 96% Weight: 197 lbs 04/14/2017 Blood Pressure 1: 146/84 Code: 8480-6 BMI: 27.5 Code: 74688-5 Heart Rate 1: 69 bpm Height: 5'10" SpO2: 95% Weight: 192 lbs 02/24/2017 Blood Pressure 1: 146/60 Code: 8480-6 BMI: 27.4 Code: 08773-7 Heart Rate 1: 61 bpm Height: 5'10" SpO2: 97% Weight: 191 lbs 05/07/2016 Blood Pressure 1: 146/66 Code: 8480-6 BMI: 26.3 Code: 58357-9 Heart Rate 1: 69 bpm Height: 5'10" SpO2: 97% Weight: 183 lbs 03/02/2016 Blood Pressure 1: 190/108 Code: 8480-6 Blood Pressure 1: 170/100 Code: 8480-6 BMI: 26.5 Code: 12751-4 Heart Rate 1: 76 bpm Height: 5'10" SpO2: 98% Weight: 185 lbs 10/31/2015 Blood Pressure 1: 142/90 Code: 8480-6 Blood Pressure 1: 126/86 Code: 8480-6 BMI: 26.8 Code: 67200-6 Heart Rate 1: 99 bpm Height: 5'10" SpO2: 95% Temperature: 37.0 (C) / 98.6 (F) Weight: 187 lbs 01/25/2014 Blood Pressure 1: 180/90 Code: 8480-6 BMI: 26.3 Code: 04337-4 Heart Rate 1: 76 bpm Height: 5'10" Temperature: 37.4 (C) / 99.3 (F) Weight: 183 lbs 11/29/2013 Blood Pressure 1: 164/82 Code: 8480-6 Heart Rate 1: 80 bpm Temperature: 37.1 (C) / 98.7 (F) Weight: 187 lbs 11/10/2013 Blood Pressure 1: 156/94 Code: 8480-6 Heart Rate 1: 72 bpm Weight: 186 lbs 05/10/2013 Blood Pressure 1: 134/78 Code: 8480-6 BMI: 25.7 Code: 32891-2 Heart Rate 1: 84 bpm Height: 5'10" Weight: 179 lbs 02/23/2013 Blood Pressure 1: 138/90 Code: 8480-6 BMI: 27.0 Code: 93642-2 Heart Rate 1: 88 bpm Height: 5'10" Temperature: 37.0 (C) / 98.6 (F) Weight: 188 lbs 01/12/2013 Blood Pressure 1: 136/78 Code: 8480-6 BMI: 26.7 Code: 36391-8 Heart Rate 1: 96 bpm Height: 5'10" Weight: 186 lbs 11/30/2012 Blood Pressure 1: 170/90 Code: 8480-6 BMI: 26.8 Code: 55410-6 Heart Rate 1: 80 bpm Height: 5'10" Weight: 187 lbs 11/09/2012 Blood Pressure 1: 178/84 Code: 8480-6 BMI: 26.5 Code: 77536-0 Heart Rate 1: 86 bpm Height: 5'10" [...] pain Quality recurrent 05/10/2013 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 PATIENT, LEVEL III Diagnosis: Essential (primary) hypertension[ICD10: I10] Diagnosis: Other chcf (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[ICD10: Z79.899] Gayle Fajardo MD, [facility] CPT-4: 15763 01/03/2019 [id number] EST. PATIENT, LEVEL III Diagnosis: Paresthesia of skin[ICD10: R20.2] Diagnosis: Cervicalgia[ICD10: M54.2] Diagnosis: Essential (primary) hypertension[ICD10: I10] Gayle Fajardo MD, [facility] CPT-4: 07251 04/15/2018 ([id number]) PER PM REEVAL EST PAT 65+ YR Diagnosis: Benign prostatic hyperplasia with lower urinary tract symptoms[ICD10: N40.1] Diagnosis: Essential (primary) hypertension[ICD10: I10] Gayle Fajardo MD, [facility] CPT-4: 73263 12/01/2017 21227 EST. PATIENT, LEVEL IV Diagnosis: Other acute sinusitis[ICD10: J01.80] Diagnosis: Other allergic rhinitis[ICD10: J30.89] Diagnosis: Other chcf (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[ICD10: Z79.899] Gayle Fajardo MD, [facility] CPT-4: 22736 10/06/2017 18900 EST. PATIENT, LEVEL IV Diagnosis: Gastro-esophageal reflux disease without esophagitis[ICD10: K21.9] Diagnosis: Pain in right elbow[ICD10: M25.521] Diagnosis: Other long term care administrator (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[ICD10: Z79.899] Gayle Fajardo MD, [facility] CPT-4: 48775 06/23/2017 32022 EST. PATIENT, LEVEL IV Diagnosis: Other conditions associated with Lyme disease[ICD10: A69.29] Diagnosis: Other dorsalgia[ICD10: M54.89] Gayle Fajardo MD, [facility] CPT-4: 55329 04/14/2017 67424 EST. PATIENT, LEVEL IV Diagnosis: Pain in left elbow[ICD10: M25.522] Diagnosis: Pain in right elbow[ICD10: M25.521] Diagnosis: Pain in joints of left hand[ICD10: M25.542] Diagnosis: Pain in joints of right hand[ICD10: M25.541] Diagnosis: Other fatigue[ICD10: R53.83] Diagnosis: Other long term care administrator (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[ICD10: Z79.899] Gayle Fajardo MD, [facility] CPT-4: 39848 02/24/2017 ([id number]) 68162 EST. PATIENT, LEVEL III Diagnosis: Essential (primary) hypertension[ICD10: I10] Jennifer Fajardo MD, [facility] CPT-4: 07316 05/07/2016 ([id number]) 30736 EST. PATIENT, LEVEL IV Diagnosis: Essential (primary) hypertension[ICD10: I10] Diagnosis: Impaired fasting glucose[ICD10: R73.01] Diagnosis: Other long term care administrator (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[ICD10: Z79.899] Jennifer Fajardo MD, [facility] CPT-4: 49487 03/02/2016 ([id number]) 70452 EST. PATIENT, LEVEL IV Diagnosis: Essential (primary) hypertension[ICD10: I10] Diagnosis: Mixed hyperlipidemia[ICD10: E78.2] Diagnosis: Other long term care administrator (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[ICD10: Z79.899] Diagnosis: Impaired fasting glucose[ICD10: R73.01] Diagnosis: Acute recurrent maxillary sinusitis[ICD10: J01.01] Jennifer Fajardo MD, [facility] CPT-4: 00331 10/31/2015 ([id number]) 60416 EST. PATIENT, LEVEL III Diagnosis: CELLULITIS[ICD9: 682.9] Mahnaz Fajardo MD, [facility] CPT-4: 09014 01/25/2014 ([id number]) 31606 EST. PATIENT, LEVEL III Diagnosis: Acute maxillary sinusitis[ICD9: 461.0] Diagnosis: Cough[ICD9: 786.2] Mahnaz Fajardo MD, [facility] CPT-4: 55478 11/29/2013 ([id number]) 43829 EST. PATIENT, LEVEL III Diagnosis: ESSENTIAL HYPERTENSION[SNOMED: 08399714] Diagnosis: Encounter for long-term (current) use of other high-risk medications[ICD9: V58.69] Jennifer Fajardo MD, [facility] CPT-4: 66799 11/10/2013 ([id number] 51579 EST. PATIENT, LEVEL IV Diagnosis: ESSENTIAL HYPERTENSION[SNOMED: 80275172] Diagnosis: HYPERLIPIDEMIA[ICD9: 272.4] Mahnaz Fajardo MD [facility] CPT-4: 47284 05/10/2013 ([id number]) 07389 EST. PATIENT, LEVEL III Diagnosis: Esophageal reflux[ICD9: 530.81] Diagnosis: Sore throat[ICD9: 462] Diagnosis: Allergic rhinitis[ICD9: 477.9] Mahnaz Fajardo MD [facility] CPT-4: 82792 02/23/2013 ([id number]) 03947 EST. PATIENT, LEVEL III Diagnosis: ESSENTIAL HYPERTENSION[SNOMED: 36648935] Diagnosis: HYPERLIPIDEMIA[ICD9: 272.4] Mahnaz Fajardo MD, [facility] CPT-4: 56958 01/12/2013 ([id number]) 81651 EST. 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 Pt has been encouraged to exercise daily. The pt has been advised to call the office if there are any acute concerns about change in blood pressure readings at home. 01/03/2019 Appointment: Gayle Morris WPtel: [address] [place], [place] [phone] (30 min) [facility] 01/03/2019 Patient Education: Patient Medication Summary Completed 01/03/2019 Care Plan: X-RAY EXAM NECK SPINE 2-[address] [facility] : 46423-7 Pending 04/19/2018 Visit Plan: Left sided paresthesia, [...] concerns. 04/15/2018 Appointment: [facility] [phone] [facility] (15 min) Moderate 04/15/2018 Patient Education: Patient Medication Summary Completed 04/15/2018 Ref[facility] [phone] [facility] Referral Initiated 12/16/2017 Visit Plan: Well Adult - pt was [...] refer to Dr. Hdez 12/01/2017 Visit Plan: Hypertension - well controlled - [...] Dr. Hdez 12/01/2017 Appointment: Gayle Morris WPtel: [facility] (30 min) Complex 12/01/2017 Patient Education: Patient Medication Summary Completed 12/01/2017 Care Plan: Referral Order SNOMED-CT : 548568030 Pending 12/01/2017 Visit Plan: Sinusitis - Pt [...] allergy spray. 10/06/2017 Appointment: Gayle Morris WPtel: [facility] (30 min) Complex 10/06/2017 Patient Education: Patient Medication Summary Completed 10/06/2017 Care Plan: Pt Approved 10/06/2017 Referral: Kobe Benjamin [address] [facility] [place] Referral Initiated 07/06/2017 [...] not improve. 06/23/2017 Appointment: Gayle Morris WPtel: [address] [place], [place] [phone] (30 min) Complex 06/23/2017 Patient Education: Patient Medication Summary Completed 06/23/2017 Care Plan: Referral Order SNOMED-CT : 405259007 Pending 06/23/2017 Visit Plan: Back pain, lyme [...] Pain Completed 04/14/2017 Appointment: Gayle Morris WPtel: [facility] [place] (30 min) Complex 04/13/2017 Visit Plan: Joint pain, back pain - will check labs - The pt is to use prn antiinflammatories to manage acute pain. The patient is to call the office if the pain is worsening or does not improve. 02/24/2017 Appointment: Gayle Morris WPtel: [address] [place], [place] [phone] (30 min) Complex 02/24/2017 Patient Education: Patient Medication Summary Completed 02/24/2017 Patient Education: Patient Medication Summary Completed 11/20/2016 Care Plan: Pt Pending 11/20/2016 Appointment: Jennifer Perez WPtel: [address] [place], [place] [phone] [place] (30 min) Complex 11/05/2016 Visit Plan: Hypertension - well controlled - continue with current medications, continue with no added salt diet. Pt has been encouraged to exercise daily. The pt has been advised to call the office if there are any acute concerns about change in blood pressure readings at home. 05/07/2016 Appointment: Jennifer Perez [facility]el[facility] [phone] [phone] (30 min) Complex 05/07/2016 Patient Education: Patient [...] 03/02/2016 Care Plan: Referral Order SNOMED-CT : 518657409 Pending 03/02/2016 Visit Plan: Hypertension - well [...] of pressure. 01/25/2014 Appointment: Mahnaz Fajardo WPtel: [facility] Other 01/25/2014 Patient Education: Patient Medication Summary Completed 01/25/2014 Appointment: Mahnaz Fajardo WPtel: [address] [place], [place] [phone] Sick 11/29/2013 Patient Education: Patient Medication Summary [...] Coumadin-check PT/INR 11/10/2013 Appointment: Jennifer Perez WPtel: [phone] Follow up 11/10/2013 Patient Education: Patient Medication Summary Completed 11/10/2013 Patient Education: Hypertension Completed 11/10/2013 Appointment: Mahnaz Fajardo WPtel: [address] [place], [place] [phone] Follow up 11/08/2013 Visit Plan: Hypertension - [...] medications. 05/10/2013 Appointment: [facility] [phone] [facility] Follow up 05/10/2013 Patient Education: Patient Medication Summary Completed 05/10/2013 Patient Education: Hypertension Completed 05/10/2013 Appointment: Mahnaz Fajardo WPtel: [facility] [facility] 02/24/2013 Visit Plan: Esophageal Reflux [...] one month. 01/12/2013 Appointment: Mahnaz Fajardo [facility]Ptel: [phone] [facility] Follow up 01/12/2013 Patient Education: Patient Medication Summary Completed 01/12/2013 Patient Education: Hypertension Completed 01/12/2013 Appointment: Mahnaz Fajardo [facility]Ptel: [phone] [facility] Follow up 01/11/2013 Visit Plan: Nerve pain [...] to assure normal liver response to medications. [place] [employer] Kr[employer] oil twice daily 11/30/2012 Appointment: Mahnaz Fajardo [facility]Ptel: [phone] [facility] Follow up 11/30/2012 Patient Education: Patient Medication [...] however, has not had re-eval since the [facility] stent- pt to see Dr. Grayson - cardiothoracic surgeon - Nov 18 At 9 AM. Hip pain - pt to use tylenol for pain - Appt with Dr. Zuniga for hip pain - suspect arthritis. 11/09/2012 Appointment: Mahnaz Fajardo WPtel: [phone] [id number] New Patient 11/09/2012 Patient Education: Patient Medication Summary Completed 11/09/2012 Patient Education: Hypertension Completed 11/09/2012 Referral: Kobe Benjamin [address] [facility] [place] Referral Initiated Referral: Fernando Hdez [facility]el[facility] [phone] [id number] Referral Initiated Referral: Opal Reddy Referral Appointment [...] to call for acute concerns. Coumadin-check PT/INR Continue lisinopril 20mg BID for a total [...] pt is to call for acute concerns. . Sinusitis - Pt has acute infection [...] in the nasal steroid allergy spray. . Well Adult - pt was counseled [...] - will refer to Dr. Hdez . Hypertension - well controlled - continue [...] retention - will refer to Dr. Hdez will refer to Dr. Benjamin for colonoscopy [...] change in blood pressure readings at home. . Hypertension - well controlled - continue [...] improvement. Kenalog injection today in the office. [place] red Krill oil twice daily increase the [...] to assure normal liver response to medications. [place] red Krill oil twice daily . Hypertension [...] like to check a tick panel for [place] Spotted Fever - I will give you a script for the blood draw let me know where you get it done so we can look for results. I would like to start doxycycline - I can send augmentin for you to start, but the only treatment for [place] Spotted Fever is Doxycycline. Massage from [facility] [...]
--- OUTSIDE RECORDS SUMMARY | 2019-02-13 12:14 | XMS REPORT | CCD ---
Author Author [facility] Organization [facility] Address [address] [place] [address] Phone Care Team Providers Care Federal Judge Name Role Phone PP Unavailable CCM Unavailable Summary Purpose Interface Exchange Insurance Providers Payer name Policy type / Coverage type Covered republican ID Effective Begin Date Effective End Date [employer] Medicare Solutions Medicare Part B [id number] 2016 Unknown Family history Mother Diagnosis Age At Onset Stroke Unknown Father Diagnosis Age At Onset Hypertension Unknown Sister Diagnosis Age At Onset Hypertension Unknown Social History Social History Element Codes Description Effective Dates Marital status Unknown 11/09/[address]: 0072622 Former smoker quit 1988 11/09/2012 Allergies, Adverse Reactions, Alerts Substance Reaction Codes Entered Date Inactivated Date Status ASPIRIN (TARTRAZINE ONLY) hives, Unknown 11/09/2012 No Inactive Date Active Past Medical History Illness Codes Condition Status Onset Date Resolved Date Essential (primary) hypertension ICD-9: 401.1 ICD-10: I10 Active 01/03/2019 Unknown [facility] (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 ICD-9: V58.69 ICD-10: Z79.899 [...] ICD-9: 401.1 ICD-10: I10 01/03/2019 Active Other jail (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 ICD-9: V58.69 ICD-10: Z79.899 [...] Fill Instructions Flomax 0.4 mg capsule RxNorm: 268858 TAKE 2 CAPSULES BY MOUTH DAILY 11/07/2018 11/01/2019 Active - First Attempt Ref: [id number] Coreg 12.5 mg tablet RxNorm: 328946 TAKE 1 TABLET BY MOUTH TWO TIMES DAILY 09/21/2018 03/19/2019 Active - Ref: [id number] lisinopril 20 mg tablet RxNorm: 188585 1 Tablet(s) PO BID 05/17/2018 08/09/2019 Active Augmentin 500 mg-125 mg tablet RxNorm: 774492 1 Tablet(s) PO TID 04/29/2018 05/08/2018 Inactive Diflucan 150 mg tablet RxNorm: 056545 1 Tablet(s) PO daily 04/29/2018 05/03/2018 Inactive lisinopril 40 mg tablet RxNorm: 045809 1/2 Tablet(s) PO BID 03/09/2018 03/03/2019 Active change from lisinopril 20 BID lisinopril 40 mg tablet RxNorm: 498384 1/2 Tablet(s) PO BID 03/09/2018 03/08/2018 Inactive Coreg 12.5 mg tablet RxNorm: 731263 TAKE 1 TABLET BY MOUTH TWO TIMES DAILY 02/23/2018 08/21/2018 Inactive - Ref: [id number] amoxicillin 500 mg capsule RxNorm: 920224 1 Capsule(s) PO TID 10/19/2017 10/28/2017 Inactive amoxicillin 500 mg capsule RxNorm: 589160 1 Capsule(s) PO TID 10/19/2017 10/18/2017 Inactive Kenalog 40 mg/mL suspension for injection RxNorm: 3989389 1 Milliliter(s) Inj 10/06/2017 10/06/2017 Inactive Zithromax Z-[place] 250 mg tablet RxNorm: 001647 1 Tablet(s) PO UD 10/06/2017 02/22/2018 Inactive warfarin 3 mg tablet RxNorm: 419247 TAKE 1 TABLET BY MOUTH ON WEDNESDAY , WEDNESDAY , WEDNESDAY,WEDNESDAY, WEDNESDAY THEN 1 AND 1/2 TABLETS BY MOUTH ON WEDNESDAY AND Wednesday09/30/2017 06/21/2019 Active - Ref: [id number] Flomax 0.4 mg capsule RxNorm: 544382 TAKE 2 CAPSULES BY MOUTH DAILY 09/30/2017 11/06/2018 Inactive - Ref: [id number] omeprazole 20 mg capsule,delayed release RxNorm: 713158 1 Capsule(s) PO daily 06/23/2017 07/22/2017 Inactive lisinopril 20 mg tablet RxNorm: 715844 1 Tablet(s) PO BID 04/21/2017 03/08/2018 Inactive Coreg 12.5 mg tablet RxNorm: 665126 1 Tablet(s) PO BID 04/21/2017 05/20/2017 Inactive Coreg 12.5 mg tablet RxNorm: 454984 1 Tablet(s) PO BID 04/21/2017 04/20/2017 Inactive Augmentin 500 mg-125 mg tablet RxNorm: 598011 1 Tablet(s) PO TID 04/14/2017 04/22/2017 Inactive Diflucan 150 mg tablet RxNorm: 251049 1 Tablet(s) PO daily 04/14/2017 04/18/2017 Inactive Flomax 0.4 mg capsule RxNorm: 023357 Take 2 capsules by mouth daily 03/31/2017 09/29/2017 Inactive - First Attempt Ref: [id number] lisinopril 20 mg tablet RxNorm: 988591 1 Tablet(s) PO BID 03/11/2017 04/20/2017 Inactive Voltaren 1 % topical gel RxNorm: 034122 1 Application TOP BID as needed 03/09/2017 No Stop Date Active lisinopril 20 mg tablet RxNorm: 091142 2 Tablet(s) PO BID 02/26/2017 03/10/2017 Inactive cyclobenzaprine 5 mg tablet RxNorm: 592146 1 Tablet(s) PO TID as needed muscle spasms 02/24/2017 02/28/2017 Inactive warfarin 3 mg tablet RxNorm: 437675 1 Tablet(s) PO daily 11/23/2016 09/29/2017 Inactive lisinopril 20 mg tablet RxNorm: 697697 Take 2 tablets by mouth twice a day 09/22/2016 02/25/2017 Inactive - Ref: [id number] lisinopril 20 mg tablet RxNorm: 539129 1 Tablet(s) PO BID 05/07/2016 02/25/2017 Inactive First Attempt Coreg 25 mg tablet RxNorm: 477633 1 Tablet(s) PO BID 05/07/2016 02/23/[address] Reddy lisinopril 20 mg tablet RxNorm: 476362 1 Tablet(s) PO daily Take 2 tablets by mouth bid 05/07/2016 05/06/2016 Inactive First Attempt Flomax 0.4 mg capsule RxNorm: 839456 Take 2 capsules by mouth daily 03/15/2016 03/30/2017 Inactive - First Attempt lisinopril 20 mg tablet RxNorm: 443912 2 Tablet(s) PO BID Take 2 tablets by mouth bid 03/04/2016 05/06/2016 Inactive First Attempt lisinopril 20 mg tablet RxNorm: 406595 1 Tablet(s) PO BID Take 2 tablets by mouth daily 03/02/2016 03/03/2016 Inactive First Attempt Phenergan with Codeine Syrup RxNorm: 5 Milliliter(s) PO Q6 PRN 10/31/2015 No Stop Date Active Kenalog 40 mg/mL suspension for injection RxNorm: 2827884 Milliliter(s) Inj 10/31/2015 10/31/2015 Inactive warfarin 3 mg tablet RxNorm: 559214 Tablet(s) Take 1 tablet by mouth on tues,wed,thur,sat and sun and 1 and 1/2 tablets by mouth on wed and wed10/31/2015 07/23/2016 Inactive Zithromax Z-[place] 250 mg tablet RxNorm: 030832 1 Tablet(s) PO UD 10/31/2015 11/04/2015 Inactive zpack Coreg 3.125 mg tablet RxNorm: 673572 1 Tablet(s) PO BID 06/19/2015 05/06/2016 Inactive warfarin 3 mg tablet RxNorm: 471992 Take 1 tablet by mouth on tues,wed,thur,sat and sun and 1 and 1/2 tablets by mouth on wed and wed06/06/2015 06/05/2015 Inactive 2nd Attempt warfarin 3 mg tablet RxNorm: 439903 Tablet(s) Take 1 tablet by mouth on tu,wed,thur,sat and sun and 1 and 1/2 tablets by mouth on wed and wed06/06/2015 10/30/2015 Inactive 2nd Attempt Flomax 0.4 mg capsule RxNorm: 864584 Take 2 capsules by mouth daily 04/29/2015 01/23/2016 Inactive First Attempt lisinopril 10 mg tablet RxNorm: 128376 Take 2 tablets by mouth daily 04/29/2015 01/23/2016 Inactive First Attempt warfarin 3 mg tablet RxNorm: 504621 one wed thur sat sun 4.5mg wednesday Tablet(s) PO daily 07/25/2014 06/05/2015 Inactive Flomax 0.4 mg capsule RxNorm: 047867 2 Capsule(s) PO daily 07/25/2014 04/28/2015 Inactive lisinopril 10 mg tablet RxNorm: 295715 2 Tablet(s) PO daily 07/25/2014 04/28/2015 Inactive Coreg 3.125 mg tablet RxNorm: 061578 1 Tablet(s) PO BID 07/25/2014 06/18/2015 Inactive cephalexin 500 mg capsule RxNorm: 155245 1 Capsule(s) PO QID 11/29/2013 10/30/2015 Inactive lisinopril 20 mg tablet RxNorm: 473678 1 Tablet(s) PO BID 11/10/2013 03/09/2014 Inactive Flomax 0.4 mg capsule RxNorm: 304629 2 Capsule(s) PO daily 10/12/2013 07/24/2014 Inactive Coreg 3.125 mg tablet RxNorm: 935087 1 Tablet(s) PO BID 10/12/2013 07/24/2014 Inactive lisinopril 10 mg tablet RxNorm: 343433 2 Tablet(s) PO daily 10/12/2013 11/09/2013 Inactive warfarin 3 mg tablet RxNorm: 558083 one wed sat sun 4.5mg wednesday Tablet(s) PO daily 10/12/2013 07/24/2014 Inactive o Flomax 0.4 mg capsule RxNorm: 219244 2 Capsule(s) PO daily 06/05/2013 10/11/2013 Inactive Zetia 10 mg tablet RxNorm: 296728 1 Tablet(s) PO daily 05/16/2013 05/15/2013 Inactive Zetia 10 mg tablet RxNorm: 207497 1 Tablet(s) PO daily 05/16/2013 09/12/2013 Inactive Carafate 100 mg/mL Oral Susp RxNorm: 744610 10 Milliliter(s) PO QID 05/10/2013 10/30/2015 Inactive dispense one month supply Flomax 0.4 mg capsule RxNorm: 837177 2 Capsule(s) PO daily 05/10/2013 06/04/2013 Inactive Carafate 100 mg/mL Oral Susp RxNorm: 457017 10 Milliliter(s) PO QID 02/23/2013 04/23/2013 Inactive dispense one month supply gabapentin 100 mg capsule RxNorm: 577261 1 Capsule(s) PO daily one at bedtime and one up to three times daily as needed for nerve pain in leg 01/16/2013 05/09/2013 Inactive gabapentin 100 mg capsule RxNorm: 460735 1 Capsule(s) PO daily one at bedtime and one up to three times daily as needed for nerve pain in leg 01/12/2013 01/15/2013 Inactive warfarin 3 mg tablet RxNorm: 143776 Tablet(s) PO 12/05/2012 10/11/2013 Inactive one josé luis brooks sat4.5 mg mon frid lisinopril 10 mg tablet RxNorm: 054071 2 Tablet(s) PO daily 11/30/2012 06/27/2013 Inactive gabapentin 100 mg capsule RxNorm: 821281 1 Capsule(s) PO Q8 PRN one at bedtime and one up to three times daily as needed for nerve pain in leg 11/30/2012 01/11/2013 Inactive Coreg 3.125 mg tablet RxNorm: 199644 1 Tablet(s) PO BID 11/09/2012 01/07/2013 Inactive lisinopril 10 mg tablet RxNorm: 890265 1.5 Tablet(s) PO daily 11/09/2012 11/29/2012 Inactive Co Q-10 oral RxNorm: 29761 oral No Start Date Active famotidine 20 mg tablet RxNorm: 805601 1 Tablet(s) PO QAM No Start Date Active Coreg 12.5 mg tablet RxNorm: 003530 1 Tablet(s) PO BID No Start Date 04/20/2017 Inactive Voltaren 1 % topical gel RxNorm: 987742 1 Application TOP BID as needed No Start Date 03/08/2017 Inactive lisinopril 20 mg tablet RxNorm: 640754 1 Tablet(s) PO BID No Start Date 05/16/2018 Inactive warfarin 3 mg tablet RxNorm: 424408 Tablet(s) PO No Start Date 12/04/2012 Inactive one josé luis brooks sat4.5 mg wed frid Flomax 0.4 mg capsule RxNorm: 747456 1 Capsule(s) PO daily No Start Date 05/09/2013 Inactive niacin 500 mg tablet RxNorm: 593239 1 Tablet(s) PO daily No Start Date 03/01/2016 Inactive Medication Administered Medication Codes Instructions Start Date Status Kenalog 40 mg/mL suspension for injection RxNorm: 3665107 1Milliliter 10/06/2017 No longer Active Kenalog 40 mg/mL suspension for injection RxNorm: 7793200 Milliliter 10/31/2015 No longer Active Immunizations No [...] sinusitis ICD-9: 461.0 11/29/2013 ESSENTIAL HYPERTENSION SNOMED: 37673150 ICD-9: 401.9 11/10/2013 Encounter for long-term (current) [...] Code Item Item Code Result Date Pt Ppy2253 PT 24.1 seconds 01/03/2019 Pt Swp1608 INR 2.2 01/03/2019 Pt Fqe2951 Low Intensity - 1.5-2.0 01/03/2019 Pt Jbt8779 Mod intensity - 2.0-3.0 01/03/2019 Pt Kkk9329 Hi intensity - 3.0-4.0 01/03/2019 Pt Ctk4525 PT 25.5 seconds 08/29/2018 Pt Bfb5333 INR 2.4 08/29/2018 Pt Ivj7902 Low Intensity - 1.5-2.0 08/29/2018 Pt Vpf3871 Mod intensity - 2.0-3.0 08/29/2018 Pt Dvr8184 Hi intensity - 3.0-4.0 08/29/2018 Pt Ruy5088 PT 35.9 seconds 08/11/2018 Pt Jlc7066 INR 3.6 08/11/2018 Pt Xfq4830 Low Intensity - 1.5-2.0 08/11/2018 Pt Hms7170 Mod intensity - 2.0-3.0 08/11/2018 Pt Qsc5023 Hi intensity - 3.0-4.0 08/11/2018 Pt Vap6131 PT 27.2 seconds 06/16/2018 Pt Jwm5995 INR 2.5 06/16/2018 Pt Xgb4694 Low Intensity - 1.5-2.0 06/16/2018 Pt Jfy6854 Mod intensity - 2.0-3.0 06/16/2018 Pt Xev1950 Hi intensity - 3.0-4.0 06/16/2018 Pt Qkv6882 PT 38.0 seconds 04/04/2018 Pt Siv1738 INR 3.8 04/04/2018 Pt Azc0276 Low Intensity - 1.5-2.0 04/04/2018 Pt Fft0707 Mod intensity - 2.0-3.0 04/04/2018 Pt Kvs8494 Hi intensity - 3.0-4.0 04/04/2018 Metabolic Ord15 [...] Magnesium Ord90 Mag 1.9 mg/dL 04/04/2018 Pt Jbg0047 PT 21.1 seconds 03/08/2018 Pt Kxi0789 INR 1.8 03/08/2018 Pt Elc9118 Low Intensity - 1.5-2.0 03/08/2018 Pt Mgw8050 Mod intensity - 2.0-3.0 03/08/2018 Pt Gzu7993 Hi intensity - 3.0-4.0 03/08/2018 Pt Hnn3585 PT 37.2 seconds 02/23/2018 Pt Wal0918 INR 3.7 02/23/2018 Pt Xjb8197 Low Intensity - 1.5-2.0 02/23/2018 Pt Uqj5172 Mod intensity - 2.0-3.0 02/23/2018 Pt Igh7770 Hi intensity - 3.0-4.0 02/23/2018 Pt Bmo5693 PT 33.4 seconds 12/28/2017 Pt Elh0926 INR 3.2 12/28/2017 Pt Eif6190 Low Intensity - 1.5-2.0 12/28/2017 Pt Vez4006 Mod intensity - 2.0-3.0 12/28/2017 Pt Mfd8398 Hi intensity - 3.0-4.0 12/28/2017 Pt Exn2943 PT 30.2 seconds 10/06/2017 Pt Kkk0613 INR 2.9 10/06/2017 Pt Ohh3489 Low Intensity - 1.5-2.0 10/06/2017 Pt Uga8353 Mod intensity - 2.0-3.0 10/06/2017 Pt Pty8885 Hi intensity - 3.0-4.0 10/06/2017 Pt Mrj9512 PT 33.3 seconds 06/23/2017 Pt Lnc3310 INR 3.2 06/23/2017 Pt Hru1357 Low Intensity - 1.5-2.0 06/23/2017 Pt Pzr2543 Mod intensity - 2.0-3.0 06/23/2017 Pt Khq4127 Hi intensity - 3.0-4.0 06/23/2017 Tsh Ord6 hTSH II 0.86 uIU/mL 02/24/2017 C-Reactive Protein Qnt Crqnt CRP 0.2 mg/dl 02/24/2017 Comp Metabolic Eni392 NA 139 mEq/L 02/24/2017 Comp Metabolic Pfo838 K 3.9 mEq/L 02/24/2017 Comp Metabolic Sdk417 CL 105 mEq/L 02/24/2017 Comp Metabolic Egb817 CO2 27.0 mEq/L 02/24/2017 Comp Metabolic Ypu023 ANION GAP 11 02/24/2017 Comp Metabolic Fve187 GLUCOSE 93 mg/dL 02/24/2017 Comp Metabolic Egy053 Creat 1.1 mg/dL 02/24/2017 Comp Metabolic Tdq689 eGFR 73 ml/min/1.73m2 02/24/2017 Comp Metabolic Klx469 BUN 14 mg/dL 02/24/2017 Comp Metabolic Tmn262 B/C Ratio 13.1 Ratio 02/24/2017 Comp Metabolic Qsv158 CALCIUM 8.4 mg/dL 02/24/2017 Comp Metabolic Glq971 ALK PHOS 89 U/L 02/24/2017 Comp Metabolic Blf688 AST(SGOT) 18 U/L 02/24/2017 Comp Metabolic Hmc454 ALT(SGPT) 21 U/L 02/24/2017 Comp Metabolic Bvx353 BILI T 0.5 mg/dL 02/24/2017 Comp Metabolic Rac140 ALBUMIN 3.8 g/dL 02/24/2017 Comp Metabolic Gpu002 TPRO 6.5 g/dL 02/24/2017 Comp Metabolic Ixy128 GLOB 2.7 g/dL 02/24/2017 Comp Metabolic Urr643 A/G Ratio 1.4 Ratio 02/24/2017 Comp Metabolic Jhd265 Osmo 278 mOsmo 02/24/2017 Sed Rate Ord21 ESR 25 mm/hr 02/24/2017 Pt Wff7963 PT 31.7 seconds 02/24/2017 Pt Vrs4695 INR 3.3 02/24/2017 Pt Cba2931 Low Intensity - 1.5-2.0 02/24/2017 Pt Lne1450 Mod intensity - 2.0-3.0 02/24/2017 Pt Mjb6604 Hi intensity - 3.0-4.0 02/24/2017 Cbc With [...] 29.6 pg 02/24/2017 Cbc With Differential Ord2 [place]% 9.7 % 02/24/2017 Cbc With Differential Ord2 [...] 2.62 K/ul 02/24/2017 Cbc With Differential Ord2 [place] ABS# 0.8 K/ul 02/24/2017 Cbc With Differential Ord2 Eos ABS# 0.2 K/ul 02/24/2017 Cbc With Differential Ord2 Baso ABS# 0.1 K/ul 02/24/2017 Pt Zrl9847 PT 22.4 seconds 12/28/2016 Pt Dud9053 INR 2.1 12/28/2016 Pt Vgo3431 Low Intensity - 1.5-2.0 12/28/2016 Pt Upv2148 Mod intensity - 2.0-3.0 12/28/2016 Pt Tai3548 Hi intensity - 3.0-4.0 12/28/2016 Pt Ssx9652 PT 30.2 seconds 11/26/2016 Pt Xsi6472 INR 3.1 11/26/2016 Pt Gax0027 Low Intensity - 1.5-2.0 11/26/2016 Pt Dwk6198 Mod intensity - 2.0-3.0 11/26/2016 Pt Gmh9717 Hi intensity - 3.0-4.0 11/26/2016 Pt Pks0108 PT 34.3 seconds 11/20/2016 Pt Lnw9661 INR 3.7 11/20/2016 Pt Pql6384 Low Intensity - 1.5-2.0 11/20/2016 Pt Nfo6515 Mod intensity - 2.0-3.0 11/20/2016 Pt Oqa2485 Hi intensity - 3.0-4.0 11/20/2016 Pt Dvg5278 PT 29.0 seconds 07/14/2016 Pt Mgt3645 INR 2.9 07/14/2016 Pt Pta5777 Low Intensity - 1.5-2.0 07/14/2016 Pt Tsw4345 Mod intensity - 2.0-3.0 07/14/2016 Pt Ymk2241 Hi intensity - 3.0-4.0 07/14/2016 Lipid Ord30 CHOL 236 mg/dL 07/14/2016 Lipid Ord30 HDL 36.0 mg/dl 07/14/2016 Lipid Ord30 TRIG 406 mg/dL 07/14/2016 Lipid Ord30 LDL Unable to calculate Due to elevated triglycerides mg/dL 07/14/2016 Lipid Ord30 C/HDL 6.6 Ratio 07/14/2016 Pt Kte8185 PT 30.0 seconds 03/02/2016 Pt Dla5446 INR 3.1 03/02/2016 Pt Hxt5175 Low Intensity - 1.5-2.0 03/02/2016 Pt Yxw0240 Mod intensity - 2.0-3.0 03/02/2016 Pt Sfx7863 Hi intensity - 3.0-4.0 03/02/2016 %Hba1C Sig491 % HbA1c 18558- 6 6.0 % 03/02/2016 %Hba1C Pok940 Gluc Ave 126 mg/dL 03/02/2016 Tsh Ord6 hTSH II 0.68 uIU/mL 03/02/2016 Comp Metabolic Nst193 NA 140 mEq/L 03/02/2016 Comp Metabolic Eua339 K 4.1 mEq/L 03/02/2016 Comp Metabolic Owx814 CL 105 mEq/L 03/02/2016 Comp Metabolic Kuo219 CO2 29.0 mEq/L 03/02/2016 Comp Metabolic Gqy893 ANION GAP 10 03/02/2016 Comp Metabolic Bzd553 GLUCOSE 104 mg/dL 03/02/2016 Comp Metabolic Wby037 Creat 1.0 mg/dL 03/02/2016 Comp Metabolic Ugh931 eGFR 77 ml/min/1.73m2 03/02/2016 Comp Metabolic Gxy941 BUN 15 mg/dL 03/02/2016 Comp Metabolic Nhd388 B/C Ratio 14.7 Ratio 03/02/2016 Comp Metabolic Duh495 CALCIUM 8.9 mg/dL 03/02/2016 Comp Metabolic Lin683 ALK PHOS 84 U/L 03/02/2016 Comp Metabolic Odz415 AST(SGOT) 16 U/L 03/02/2016 Comp Metabolic Oof723 ALT(SGPT) 17 U/L 03/02/2016 Comp Metabolic Jyd517 BILI T 0.5 mg/dL 03/02/2016 Comp Metabolic Gff414 ALBUMIN 4.0 g/dL 03/02/2016 Comp Metabolic Oqe205 TPRO 6.6 g/dL 03/02/2016 Comp Metabolic Eyf975 GLOB 2.6 g/dL 03/02/2016 Comp Metabolic Kmm435 A/G Ratio 1.5 Ratio 03/02/2016 Comp Metabolic Drp229 Osmo 281 mOsmo 03/02/2016 Cbc With Differential [...] 29.3 pg 03/02/2016 Cbc With Differential Ord2 [place]% 8.1 % 03/02/2016 Cbc With Differential Ord2 [...] 2.29 K/ul 03/02/2016 Cbc With Differential Ord2 [place] ABS# 0.7 K/ul 03/02/2016 Cbc With Differential [...] 28.8 pg 10/31/2015 Cbc With Differential Ord2 [place]% 12.7 % 10/31/2015 Cbc With Differential Ord2 [...] 1.31 K/ul 10/31/2015 Cbc With Differential Ord2 [place] ABS# 0.7 K/ul 10/31/2015 Cbc With Differential [...] hTSH II 0.88 uIU/mL 10/31/2015 Comp Metabolic Nxb126 NA 135 mEq/L 10/31/2015 Comp Metabolic Aau297 K 4.2 mEq/L 10/31/2015 Comp Metabolic Mka175 CL 99 mEq/L 10/31/2015 Comp Metabolic Wrz856 CO2 28.0 mEq/L 10/31/2015 Comp Metabolic Pfe465 ANION GAP 12 10/31/2015 Comp Metabolic Cps219 GLUCOSE 107 mg/dL 10/31/2015 Comp Metabolic Wik780 Creat 1.2 mg/dL 10/31/2015 Comp Metabolic Owf062 eGFR 63 ml/min/1.73m2 10/31/2015 Comp Metabolic Ugm597 BUN 12 mg/dL 10/31/2015 Comp Metabolic Cey335 B/C Ratio 9.9 Ratio 10/31/2015 Comp Metabolic Zto583 CALCIUM 8.4 mg/dL 10/31/2015 Comp Metabolic Ikv864 ALK PHOS 134 U/L 10/31/2015 Comp Metabolic Lbx109 AST(SGOT) 20 U/L 10/31/2015 Comp Metabolic Dkm995 ALT(SGPT) 16 U/L 10/31/2015 Comp Metabolic Yvc316 BILI T 0.4 mg/dL 10/31/2015 Comp Metabolic Daz743 ALBUMIN 4.2 g/dL 10/31/2015 Comp Metabolic Suk125 TPRO 7.2 g/dL 10/31/2015 Comp Metabolic Xym599 GLOB 3.1 g/dL 10/31/2015 Comp Metabolic Uuk562 A/G Ratio 1.4 Ratio 10/31/2015 Comp Metabolic Bej661 Osmo 270 mOsmo 10/31/2015 Total Psa Ord10 PSA 2.66 ng/mL 10/31/2015 %Hba1C Eje038 % HbA1c 30277- 6 6.1 % 10/31/2015 %Hba1C Wdu868 Gluc Ave 128 mg/dL 10/31/2015 Pt Znk3017 PT 26.4 seconds 10/31/2015 Pt Xsq6856 INR 2.5 10/31/2015 Pt Sln7926 Low Intensity - 1.5-2.0 10/31/2015 Pt Vnc8256 Mod intensity - 2.0-3.0 10/31/2015 Pt Bul4716 Hi intensity - 3.0-4.0 10/31/2015 TSH 9630051 TSH 0.819 uIU/ML 11/10/2013 PT/MC 0728604 PRO TIME 24.5 SEC 11/10/2013 PT/MC 5444848 INR MCMC 2.3 11/10/2013 GFR CALC 8348776 GFR AA >60 ML/MIN 11/10/2013 GFR CALC 4606572 GFR NON-AA >60 ML/MIN 11/10/2013 CBC 6906838 WBC 8.4 10e9/L 11/10/2013 CBC 1180256 RBC 5.24 10e12/L 11/10/2013 CBC 0229659 HGB 15.4 g/dL 11/10/2013 CBC 5184436 HCT DET 43.8 % 11/10/2013 CBC 7796386 MCV 83.6 fL 11/10/2013 CBC 6059248 MCH 29.4 pg 11/10/2013 CBC 4813885 MCHC 35.2 g/dL 11/10/2013 CBC 4217482 PLT 250 10e9/L 11/10/2013 CBC 3194483 MPV 11.1 fL 11/10/2013 CBC 2759236 OANH % 58.1 % 11/10/2013 CBC 8348813 LY % 28.5 % 11/10/2013 CBC 2876883 MON % 10.2 % 11/10/2013 CBC 5996226 EOS % 2.1 % 11/10/2013 CBC 1805848 BASO % 1.1 % 11/10/2013 CBC 3217652 RDW 13.3 % 11/10/2013 CBC 6058227 ABS OANH 4.88 10e9/L 11/10/2013 CBC 8815246 ABS LYMPH 2.39 10e9/L 11/10/2013 CBC 2077189 ABS MONO 0.86 10e9/L 11/10/2013 CBC 1104837 ABS EOS 0.18 10e9/L 11/10/2013 CBC 8225429 ABS BASO 0.09 10e9/L 11/10/2013 CBC 0247214 RDW-SD 40.7 fL 11/10/2013 CHEM 14 8456750 AST 17 U/L 11/10/2013 CHEM 14 0318828 ALT 17 IU/L 11/10/2013 CHEM 14 6617114 BUN 15 MG/DL 11/10/2013 CHEM 14 4354380 ALBUMIN 4.3 GM/DL 11/10/2013 CHEM 14 5166968 CHLORIDE 103 MMOL/L 11/10/2013 CHEM 14 0420637 BILI TOT 0.6 MG/DL 11/10/2013 CHEM 14 7520268 ALK PHOS 104 U/L 11/10/2013 CHEM 14 9292167 SODIUM 137 MMOL/L 11/10/2013 CHEM 14 4698811 CREATININE 1.08 MG/DL 11/10/2013 CHEM 14 0783905 CALCIUM 8.9 MG/DL 11/10/2013 CHEM 14 9759313 POTASSIUM 4.0 MMOL/L 11/10/2013 CHEM 14 3903163 PROT TOT 7.0 GM/DL 11/10/2013 CHEM 14 9729881 GLUCOSE 84 MG/DL 11/10/2013 CHEM 14 2932119 BICARB 28 MMOL/L 11/10/2013 CHEM 14 2987997 ANION GAP 6 MEQ/L 11/10/2013 Review of [...] Procedure Codes Date THER/PROPH/DIAG INJ SC/IM CPT-4: 58037 10/06/2017 TRIAMCINOLONE ACET INJ NOS CPT-4: J3301 10/06/2017 THER/PROPH/DIAG INJ SC/IM CPT-4: 52735 10/31/2015 TRIAMCINOLONE ACET INJ NOS CPT-4: J3301 10/31/2015 ROUTINE VENIPUNCTURE CPT- 4: 67714 11/10/2013 PRESCRIP TRANSMIT VIA ERX SY CPT-4: G8553 02/23/2013 PRESCRIP TRANSMIT VIA ERX SY CPT-4: G8553 11/30/2012 PRESCRIP TRANSMIT VIA ERX SY CPT-4: G8553 11/09/2012 Vital Signs Date Vital 01/03/2019 Blood Pressure 1: 134/76 Code: 8480-6 BMI: 29.3 Code: 71328-9 Heart Rate 1: 58 bpm Height: 5'10" SpO2: 96% Weight: 204 lbs 04/15/2018 Blood Pressure 1: 150/88 Code: 8480-6 BMI: 28.1 Code: 87490-7 Heart Rate 1: 84 bpm Height: 5'10" SpO2: 98% Weight: 196 lbs 12/01/2017 Blood Pressure 1: 154/78 Code: 8480-6 BMI: 28.4 Code: 80081-0 Heart Rate 1: 87 bpm Height: 5'10" SpO2: 98% Weight: 198 lbs 10/06/2017 Blood Pressure 1: 136/74 Code: 8480-6 BMI: 38.0 Code: 22717-8 Heart Rate 1: 75 bpm Height: 5' SpO2: 95% Temperature: 36.8 (C) / 98.2 (F) Weight: 194 lbs 8 oz 06/23/2017 Blood Pressure 1: 152/82 Code: 8480-6 BMI: 28.3 Code: 88609-6 Heart Rate 1: 58 bpm Height: 5'10" SpO2: 96% Weight: 197 lbs 04/14/2017 Blood Pressure 1: 146/84 Code: 8480-6 BMI: 27.5 Code: 11092-0 Heart Rate 1: 69 bpm Height: 5'10" SpO2: 95% Weight: 192 lbs 02/24/2017 Blood Pressure 1: 146/60 Code: 8480-6 BMI: 27.4 Code: 66415-6 Heart Rate 1: 61 bpm Height: 5'10" SpO2: 97% Weight: 191 lbs 05/07/2016 Blood Pressure 1: 146/66 Code: 8480-6 BMI: 26.3 Code: 61903-9 Heart Rate 1: 69 bpm Height: 5'10" SpO2: 97% Weight: 183 lbs 03/02/2016 Blood Pressure 1: 190/108 Code: 8480-6 Blood Pressure 1: 170/100 Code: 8480-6 BMI: 26.5 Code: 67655-8 Heart Rate 1: 76 bpm Height: 5'10" SpO2: 98% Weight: 185 lbs 10/31/2015 Blood Pressure 1: 142/90 Code: 8480-6 Blood Pressure 1: 126/86 Code: 8480-6 BMI: 26.8 Code: 99416-2 Heart Rate 1: 99 bpm Height: 5'10" SpO2: 95% Temperature: 37.0 (C) / 98.6 (F) Weight: 187 lbs 01/25/2014 Blood Pressure 1: 180/90 Code: 8480-6 BMI: 26.3 Code: 54280-5 Heart Rate 1: 76 bpm Height: 5'10" Temperature: 37.4 (C) / 99.3 (F) Weight: 183 lbs 11/29/2013 Blood Pressure 1: 164/82 Code: 8480-6 Heart Rate 1: 80 bpm Temperature: 37.1 (C) / 98.7 (F) Weight: 187 lbs 11/10/2013 Blood Pressure 1: 156/94 Code: 8480-6 Heart Rate 1: 72 bpm Weight: 186 lbs 05/10/2013 Blood Pressure 1: 134/78 Code: 8480-6 BMI: 25.7 Code: 90107-7 Heart Rate 1: 84 bpm Height: 5'10" Weight: 179 lbs 02/23/2013 Blood Pressure 1: 138/90 Code: 8480-6 BMI: 27.0 Code: 31838-5 Heart Rate 1: 88 bpm Height: 5'10" Temperature: 37.0 (C) / 98.6 (F) Weight: 188 lbs 01/12/2013 Blood Pressure 1: 136/78 Code: 8480-6 BMI: 26.7 Code: 31699-5 Heart Rate 1: 96 bpm Height: 5'10" Weight: 186 lbs 11/30/2012 Blood Pressure 1: 170/90 Code: 8480-6 BMI: 26.8 Code: 26732-5 Heart Rate 1: 80 bpm Height: 5'10" Weight: 187 lbs 11/09/2012 Blood Pressure 1: 178/84 Code: 8480-6 BMI: 26.5 Code: 78849-6 Heart Rate 1: 86 bpm Height: 5'10" [...] pain Quality recurrent 05/10/2013 states lifted a brine purifier this am and has some soreness hypertension [...] Diagnosis: Essential (primary) hypertension[ICD10: I10] Diagnosis: Other jail (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[ICD10: Z79.899] Gayle Fajardo MD, [facility] CPT-4: 10846 01/03/2019 [id number] EST. PATIENT, LEVEL III Diagnosis: Paresthesia of skin[ICD10: R20.2] Diagnosis: Cervicalgia[ICD10: M54.2] Diagnosis: Essential (primary) hypertension[ICD10: I10] Gayle Fajardo MD, [facility] CPT-4: 61169 04/15/2018 ([id number]) PER PM REEVAL EST PAT 65+ YR Diagnosis: Benign prostatic hyperplasia with lower urinary tract symptoms[ICD10: N40.1] Diagnosis: Essential (primary) hypertension[ICD10: I10] Gayle Fajardo MD, [facility] CPT-4: 04260 12/01/2017 [id number] EST. PATIENT, LEVEL IV Diagnosis: Other acute sinusitis[ICD10: J01.80] Diagnosis: Other allergic rhinitis[ICD10: J30.89] Diagnosis: Other jail (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[ICD10: Z79.899] Gayle Fajardo MD, [facility] CPT-4: 96470 10/06/2017 [id number] EST. PATIENT, LEVEL IV Diagnosis: Gastro-esophageal reflux disease without esophagitis[ICD10: K21.9] Diagnosis: Pain in right elbow[ICD10: M25.521] Diagnosis: Other long term care administrator (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[ICD10: Z79.899] Gayle Fajardo MD, [facility] CPT-4: 52967 06/23/2017 [id number] EST. PATIENT, LEVEL IV Diagnosis: Other conditions associated with Lyme disease[ICD10: A69.29] Diagnosis: Other dorsalgia[ICD10: M54.89] Gayle Fajardo MD, [facility] CPT-4: 73775 04/14/2017 [id number] EST. PATIENT, LEVEL IV Diagnosis: Pain in left elbow[ICD10: M25.522] Diagnosis: Pain in right elbow[ICD10: M25.521] Diagnosis: Pain in joints of left hand[ICD10: M25.542] Diagnosis: Pain in joints of right hand[ICD10: M25.541] Diagnosis: Other fatigue[ICD10: R53.83] Diagnosis: Other long term care administrator (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[ICD10: Z79.899] Gayle Fajardo MD, [facility] CPT-4: 90996 02/24/2017 ([id number]) 77611 EST. PATIENT, LEVEL III Diagnosis: Essential (primary) hypertension[ICD10: I10] Jennifer Fajardo MD, [facility] CPT-4: 27157 05/07/2016 ([id number]) 63125 EST. PATIENT, LEVEL IV Diagnosis: Essential (primary) hypertension[ICD10: I10] Diagnosis: Impaired fasting glucose[ICD10: R73.01] Diagnosis: Other long term care administrator (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[ICD10: Z79.899] Jennifer Fajardo MD, [facility] CPT-4: 85170 03/02/2016 ([id number]) 96567 EST. PATIENT, LEVEL IV Diagnosis: Essential (primary) hypertension[ICD10: I10] Diagnosis: Mixed hyperlipidemia[ICD10: E78.2] Diagnosis: Other long term care administrator (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[ICD10: Z79.899] Diagnosis: Impaired fasting glucose[ICD10: R73.01] Diagnosis: Acute recurrent maxillary sinusitis[ICD10: J01.01] Jennifer Fajardo MD, [facility] CPT-4: 70989 10/31/2015 ([id number]) 73856 EST. PATIENT, LEVEL III Diagnosis: CELLULITIS[ICD9: 682.9] Mahnaz Fajardo MD, [facility] CPT-4: 26533 01/25/2014 ([id number]) 37721 EST. PATIENT, LEVEL III Diagnosis: Acute maxillary sinusitis[ICD9: 461.0] Diagnosis: Cough[ICD9: 786.2] Mahnaz Fajardo MD, [facility] CPT-4: 19511 11/29/2013 ([id number]) 09255 EST. PATIENT, LEVEL III Diagnosis: ESSENTIAL HYPERTENSION[SNOMED: 17334067] Diagnosis: Encounter for long-term (current) use of other high-risk medications[ICD9: V58.69] Jennifer Fajardo MD, [facility] CPT-4: 85758 11/10/2013 ([id number] 97562 EST. PATIENT, LEVEL IV Diagnosis: ESSENTIAL HYPERTENSION[SNOMED: 21999756] Diagnosis: HYPERLIPIDEMIA[ICD9: 272.4] GIAN Rose MD CPT-4: 83339 05/10/2013 ([id number]) 32484 EST. PATIENT, LEVEL III Diagnosis: Esophageal reflux[ICD9: 530.81] Diagnosis: Sore throat[ICD9: 462] Diagnosis: Allergic rhinitis[ICD9: 477.9] Mahnaz Fajardo MD [facility] CPT-4: 10449 02/23/2013 ([id number]) 99602 EST. PATIENT, LEVEL III Diagnosis: ESSENTIAL HYPERTENSION[SNOMED: 13260530] Diagnosis: HYPERLIPIDEMIA[ICD9: 272.4] Mahnaz Fajardo MD [facility] CPT-4: 96635 01/12/2013 ([id number] 48770 EST. 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 Pt has been encouraged to exercise daily. The pt has been advised to call the office if there are any acute concerns about change in blood pressure readings at home. 01/03/2019 Patient Education: Patient Medication Summary Completed 01/03/2019 Care Plan: X-RAY EXAM NECK SPINE 2-3 VW LOINC : 02235-0 Pending 04/19/2018 Visit Plan: Left sided paresthesia, [...] concerns. 04/15/2018 App[facility]ment[phone] [facility] (15 min) Moderate 04/15/2018 Patient Education: Patient Medication Summary Completed 04/15/2018 Referral: [facility] [phone] [facility] Referral Initiated 12/16/2017 Visit Plan: Well Adult [...] Dr. Hdez 12/01/2017 Appointment: Gayle Morris WPtel: [phone] (30 min) Complex 12/01/2017 Patient Education: Patient Medication Summary Completed 12/01/2017 Care Plan: Referral Order SNOMED-CT : 796564044 Pending 12/01/2017 Visit Plan: Sinusitis - Pt [...] allergy spray. 10/06/2017 Appointment: Gayle Morris WPtel: [phone] (30 min) Complex 10/06/2017 Patient Education: Patient Medication Summary Completed 10/06/2017 Care Plan: Pt Approved 10/06/2017 Referral: Kobe Benjamin [address] [facility] Referral Initiated 07/06/2017 Visit Plan: [...] improve. 06/23/2017 Appointment: Gay[facility] Morris [facility]el[facility] [phone] [facility] (30 min) Complex 06/23/2017 Patient Education: Patient Medication Summary Completed 06/23/2017 Care Plan: Referral Order SNOMED-CT : 683700047 Pending 06/23/2017 Visit Plan: Back pain, lyme [...] Pain Completed 04/14/2017 Appointment: Gayle Morris WPtel: Formerly named [facility] (30 min) Complex 04/13/2017 Visit Plan: Joint pain, back pain - will check labs - The pt is to use prn antiinflammatories to manage acute pain. The patient is to call the office if the pain is worsening or does not improve. 02/24/2017 Appointment: Gayle Morris WPtel: Formerly named [facility] (30 min) Complex 02/24/2017 Patient Education: Patient Medication Summary Completed 02/24/2017 Patient Education: Patient Medication Summary Completed 11/20/2016 Care Plan: Pt Pending 11/20/2016 Appointment: Jennifer Perez WPtel: Formerly named [phone] [place] (30 min) Complex 11/05/2016 Visit Plan: Hypertension - well controlled - continue with current medications, continue with no added salt diet. Pt has been encouraged to exercise daily. The pt has been advised to call the office if there are any acute concerns about change in blood pressure readings at home. 05/07/2016 Appointment: Jennifer Perez WPtel: Formerly named [phone] [place] (30 min) Complex 05/07/2016 Patient Education: [...] 03/02/2016 Care Plan: Referral Order SNOMED-CT : 751942329 Pending 03/02/2016 Visit Plan: Hypertension - well [...] of pressure. 01/25/2014 Appointment: Mahnaz Fajardo WPtel: Formerly named [facility] Other 01/25/2014 Patient Education: Patient Medication Summary Completed 01/25/2014 Appointment: Mahnaz Fajardo WPtel: Formerly named [facility] Sick 11/29/2013 Patient Education: Patient [...] Coumadin-check PT/INR 11/10/2013 Appointment: Jennifer Perez WPtel: Formerly named [phone] Follow up 11/10/2013 Patient Education: Patient Medication Summary Completed 11/10/2013 Patient Education: Hypertension Completed 11/10/2013 Appointment: Mahnaz Fajardo WPtel: Formerly named [facility] Follow up 11/08/2013 Visit Plan: [...] to medications. 05/10/2013 Appointment: Mahnaz Fajardo WPtel: Formerly named [facility] Follow up 05/10/2013 Patient Education: Patient Medication Summary Completed 05/10/2013 Patient Education: Hypertension Completed 05/10/2013 Appointment: Mahnaz Fajardo WPtel: Formerly named [facility] Sick 02/24/2013 Visit Plan: Esophageal [...] one month. 01/12/2013 Appointment: Mahnaz Fajardo WPtel: Formerly named [facility] Follow up 01/12/2013 Patient Education: Patient Medication Summary Completed 01/12/2013 Patient Education: Hypertension Completed 01/12/2013 Appointment: Mahnaz Fajardo WPtel: [address] [place], [place] [phone] Follow up 01/11/2013 Visit Plan: Nerve pain [...] to assure normal liver response to medications. [place] red Krill oil twice daily 11/30/2012 Appointment: Mah[phone] [facility] Follow up 11/30/2012 Patient Education: Patient Medication [...] however, has not had re-eval since the place ent of the stent- pt to see Dr. Grayson - cardiothoracic surgeon - Nov 18 At 9 AM. Hip pain - pt to use tylenol for pain - Appt with Dr. Zuniga for hip pain - suspect arthritis. 11/09/2012 Appointment: Mahnaz Fajardo [facility]Ptel: [phone] [facility] New Patient 11/09/2012 Patient Education: Patient Medication Summary Completed 11/09/2012 Patient Education: Hypertension Completed 11/09/2012 Referral: Kobe Benjamin [address] [facility] Referral Initiated Referral: Fernando Hdez [facility]el[facility] [address] [facility] Referral Initiated Referral: Opal Reddy Referral Appointment [...] improvement. Kenalog injection today in the office. [place] red Krill oil twice daily increase the [...] to assure normal liver response to medications. [place] red Krill oil twice daily . Hypertension [...] like to check a tick panel for [place] Spotted Fever - I will give you a script for the blood draw let me know where you get it done so we can look for results. I would like to start doxycycline - I can send augmentin for you to start, but the only treatment for [place] Spotted Fever is Doxycycline. Massage from [facility] [...]
[2019-02-13] MEDS ORDERED: CLOPIDOGREL 75 MG (PLAVIX) TABLET PO NR (12:15)
--- OUTSIDE RECORDS SUMMARY | 2019-02-13 12:27 | XMS REPORT | Continuity of Care Document ---
Author Organization Unknown Address Unknown Allergies Active Description Code Type Severity Reaction Onset Reported/Identified Relationship to Patient Clinical Status Yes aspirin [id number] Drug Allergy Mild HIVES 12/23/2009 Medications There is no data. 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 12/25/2010 Ot 550.90 UNILAT INGUINAL HERNIA 12/25/2010 Ot 553.1 UMBILICAL HERNIA 12/25/2010 Ot V58.61 ANTICOAGULANTS,LT,CURRENT USE 12/25/2010 Ot V58.69 OTH MED,LT,CURRENT USE 06/29/2012 Ot 719.12 HEMARTHROSIS- UP/ARM 06/29/2012 Ot 719.43 JOINT PAIN-FOREARM 06/29/2012 Ot V58.61 ANTICOAGULANTS,LT,CURRENT USE 01/11/2013 Ot 455.0 INT HEMORRHOID W/O COMPL 01/11/2013 Ot V76.51 SCREEN MAL NEOP- COLON 08/17/2013 ALYCE CASTANEDA MD Ot 272.0 PURE [...] MD Ot V12.51 HX-VENOUS THROMBOSIS EMBOLISM 08/17/2013 TONYA JAY, ALYCE Simental Ot V15.82 HISTORY OF TOBACCO USE 08/17/2013 TONYA JAY, ALYCE Simental Ot V58.61 ANTICOAGULANTS,LT,CURRENT USE 04/14/2016 Ot 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 04/14/2016 Ot 289.81 PRIMARY HYPERCOAGULABLE STATE 04/14/2016 Ot 440.1 RENAL ARTERY ATHEROSCLER 04/14/2016 Ot 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 04/14/2016 Ot 585.9 CHRONIC KIDNEY DISEASE, UNSPECIFIED 04/14/2016 Ot V58.61 ANTICOAGULANTS,LT,CURRENT USE 04/14/2016 Ot V58.69 OTH MED,LT,CURRENT USE 04/14/2016 Ot 289.81 PRIMARY HYPERCOAGULABLE STATE 04/14/2016 Ot 550.90 UNILAT INGUINAL HERNIA 04/14/2016 Ot 553.3 DIAPHRAGMATIC HERNIA 04/14/2016 Ot V72.63 PRE-PROCEDURAL LABORATORY EXAMINATION 04/14/2016 Ot V72.81 [id number] CARDIOVASCULAR 04/14/2016 Ot V74.8 SCREEN-BACTERIAL DIS NEC 04/14/2016 Ot 722.0 CERVICAL DISC DISPLACMNT 04/14/2016 Ot 782.0 SKIN SENSATION DISTURB 04/14/2016 Ot 401.9 HYPERTENSION NOS 04/14/2016 Ot 593.2 CYST OF KIDNEY, ACQUIRED 04/14/2016 Ot 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 04/14/2016 Ot 289.81 PRIMARY HYPERCOAGULABLE STATE 04/14/2016 Ot 440.1 RENAL ARTERY ATHEROSCLER 04/14/2016 Ot V12.51 HX-VENOUS THROMBOSIS EMBOLISM 04/14/2016 Ot V58.61 ANTICOAGULANTS,LT,CURRENT USE 04/14/2016 Ot V58.69 OTH MED,LT,CURRENT USE 04/14/2016 Ot 440.1 RENAL ARTERY ATHEROSCLER 04/14/2016 Ot 753.10 CYSTIC KIDNEY DISEASE, UNSPECIFIED 04/14/2016 Ot 401.9 HYPERTENSION NOS 04/14/2016 Ot 440.0 AORTIC ATHEROSCLEROSIS 04/14/2016 Ot 440.1 RENAL ARTERY ATHEROSCLER 04/14/2016 Ot 593.2 CYST OF KIDNEY, ACQUIRED 04/14/2016 Ot V72.84 EXAM PRE-OPERATIVE NOS 04/14/2016 BUSHRA FERNÁNDEZC, ALI FACP CCDS Ot R07.89 OTHER CHEST PAIN 04/14/2016 BUSHRA JAY FACC, ALI FACP CCDS Ot D68.51 ACTIVATED PROTEIN C RESISTANCE 04/14/2016 BUSHRA JAY FACC, ALI FACP CCDS Ot I10 ESSENTIAL (PRIMARY) HYPERTENSION 04/14/2016 BUSHRA JAY FACC, ALI FACP CCDS Ot 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 04/14/2016 BUSHRA JAY FACC, ALI FACP CCDS Ot R07.89 OTHER CHEST PAIN 04/15/2016 BUSHRA FERNÁNDEZC, ALI FACP CCDS Ot D68.51 ACTIVATED PROTEIN C RESISTANCE 04/15/2016 BUSHRA JAY FACC, ALI FACP CCDS Ot I10 ESSENTIAL (PRIMARY) HYPERTENSION 04/15/2016 BUSHAR JAY FACC, ALI FACP CCDS Ot 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 04/15/2016 BUSHRA FERNÁNDEZC, ALI FACP CCDS Ot R07.89 OTHER CHEST PAIN 05/08/2016 BUSHRA JAY FACC, ALI FACP CCDS Ot D68.51 ACTIVATED PROTEIN C RESISTANCE 05/08/2016 BUSHRA FERNÁNDEZC, ALI FACP CCDS Ot I10 ESSENTIAL (PRIMARY) HYPERTENSION 05/08/2016 BUSHRA FERNÁNDEZC, ALI FACP CCDS Ot 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 05/08/2016 BUSHRA FERNÁNDEZC, ALI FACP CCDS Ot R07.89 OTHER CHEST PAIN 05/13/2016 BUSHRA JAY FACC, ALI FACP CCDS Ot D68.51 ACTIVATED PROTEIN C RESISTANCE 05/13/2016 BUSHRA FERNÁNDEZC, ALI FACP CCDS Ot I10 ESSENTIAL (PRIMARY) HYPERTENSION 05/13/2016 BUSHRA FERNÁNDEZC, ALI FACP CCDS Ot 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 05/13/2016 BUSHRA FERNÁNDEZC, ALI FACP CCDS Ot R07.89 OTHER CHEST PAIN 03/29/2018 BUSHRA FERNÁNDEZC, ALI FACP CCDS Ot D68.51 ACTIVATED PROTEIN [...] BOTH MITRAL AND T 04/14/2018 BUSHRA JAY FACC, ALI FACP CCDS [...] FACP CCDS Ot R53.81 OTHER MALAISE 04/14/2018 LUZ ELENA JAY, DARIEL Patricio Ot D68.2 HEREDITARY DEFICIENCY OF OTHER CLOTTING 04/14/2018 DARIEL LAGUNA MD T Ot I10 ESSENTIAL (PRIMARY) HYPERTENSION 04/14/2018 DARIEL LAGUNA MD, Ot I73.9 PERIPHERAL VASCULAR DISEASE, UNSPECIFIED 04/14/2018 DARIEL LAGUNA MD, Ot R20.2 PARESTHESIA OF SKIN 04/14/2018 DARIEL LAGUNA MD, Ot R42 DIZZINESS AND GIDDINESS 04/14/2018 DARIEL LAGUNA MD, Ot Z79.01 BILLET HEATER (CURRENT) USE OF ANTICOAGULANT 04/14/2018 DARIEL LAGUNA MD Ot Z79.52 BILLET HEATER (CURRENT) USE OF SYSTEMIC STER 04/14/2018 DARIEL LAGUNA MD, Ot Z82.49 FAMILY HX OF ISCHEM HEART DIS AND OTH DI 04/14/2018 DARIEL LAGUNA MD, Ot Z86.718 PERSONAL HISTORY OF OTHER VENOUS THROMBO 04/14/2018 DARIEL LAGUNA MD, Ot Z87.19 PERSONAL HISTORY OF OTHER DISEASES OF TH 04/14/2018 DARIEL LAGUNA MD, Ot Z88.6 ALLERGY STATUS TO ANALGESIC AGENT STATUS 04/14/2018 DARIEL LAGUNA MD, Ot Z95.5 PRESENCE OF CORONARY ANGIOPLASTY IMPLANT 04/14/2018 BUSHRA JAY FACC, SUNNY FACP CCDS Ot D68.51 ACTIVATED PROTEIN C RESISTANCE 04/14/2018 BUSHRA JAY FACC, SUNNY FACP CCDS Ot I10 ESSENTIAL (PRIMARY) HYPERTENSION 04/14/2018 BUHSRA JAY FACC, SUNNY FACP CCDS Ot 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 04/14/2018 BUSHRA JAY FACC, SUNNY FACP CCDS Ot R07.89 OTHER CHEST PAIN 04/14/2018 BUSHRA JAY FACC, ALI FACP CCDS Ot D68.51 ACTIVATED PROTEIN C RESISTANCE 04/14/2018 BUSHRA JAY FACC, ALI FACP CCDS Ot I08.1 RHEUMATIC DISORDERS OF BOTH MITRAL AND T 04/14/2018 BUSHRA JAY FACC, SUNNY FACP CCDS Ot I10 ESSENTIAL (PRIMARY) HYPERTENSION 04/14/2018 BUSHRA JAY FACC, SUNNY FACP CCDS Ot R06.02 SHORTNESS OF BREATH 04/14/2018 BUSHRA JAY FACC, SUNNY FACP CCDS Ot R53.81 OTHER MALAISE 04/14/2018 BUSHRA JAY FACC, SUNNY FERNÁNDEZP CCDS Ot D68.51 ACTIVATED PROTEIN C RESISTANCE 04/14/2018 BUSHRA JAY [facility], ALI FACP CCDS Ot I10 ESSENTIAL (PRIMARY) HYPERTENSION 04/14/2018 BUSHRA JAY [facility], ALI FACP CCDS Ot R06.02 SHORTNESS OF BREATH 04/14/2018 BUSHRA JAY [facility], ALI FACP CCDS Ot R53.81 OTHER MALAISE 04/18/2018 MICHELLE ALVA APRN Ot M47.812 SPONDYLOSIS W/O MYELOPATHY OR RADICULOPA 04/18/2018 MICHELLE ALVA DRIVER/REFUSE COLLECTOR Ot Z98.1 ARTHRODESIS STATUS 04/18/2018 MICHELLE ALVA DRIVER/REFUSE COLLECTOR Ot M47.812 SPONDYLOSIS W/O MYELOPATHY OR RADICULOPA 04/18/2018 MICHELLE ALVA APRN Ot Z98.1 ARTHRODESIS STATUS 04/18/2018 DARIEL LAGUNA MD, Ot D68.2 HEREDITARY DEFICIENCY OF OTHER CLOTTING 04/18/2018 DARIEL LAGUNA MD, Ot I10 ESSENTIAL (PRIMARY) HYPERTENSION 04/18/2018 DARIEL LAGUNA MD, Ot I73.9 PERIPHERAL VASCULAR DISEASE, UNSPECIFIED 04/18/2018 DARIEL LAGUNA MD, Ot R20.2 PARESTHESIA OF SKIN 04/18/2018 DARIEL LAGUNA MD, Ot R42 DIZZINESS AND GIDDINESS 04/18/2018 DARIEL LAGUNA MD, Ot Z79.01 FCI (CURRENT) USE OF ANTICOAGULANT 04/18/2018 DARIEL LAGUNA MD, Ot Z79.52 BILLET HEATER (CURRENT) USE OF SYSTEMIC STER 04/18/2018 DARIEL LAGUNA MD, Ot Z82.49 FAMILY HX OF ISCHEM HEART DIS AND OTH DI 04/18/2018 DARIEL LAGUNA MD, Ot Z86.718 PERSONAL HISTORY OF OTHER VENOUS THROMBO 04/18/2018 DARIEL LAGUNA MD, Ot Z87.19 PERSONAL HISTORY OF OTHER DISEASES OF TH 04/18/2018 DARIEL LAGUNA MD, Ot Z88.6 ALLERGY STATUS TO ANALGESIC AGENT STATUS 04/18/2018 BRUEGGEMANN MD, DARIEL T Ot Z95.5 PRESENCE OF CORONARY ANGIOPLASTY IMPLANT 04/20/2018 DARIEL LAGUNA MD Ot D68.2 HEREDITARY DEFICIENCY OF OTHER CLOTTING 04/20/2018 DARIEL LAGUNA MD Ot I10 ESSENTIAL (PRIMARY) HYPERTENSION 04/20/2018 DARIEL LAGUNA MD Ot I73.9 PERIPHERAL VASCULAR DISEASE, UNSPECIFIED 04/20/2018 DARIEL LAGUNA MD Ot R20.2 PARESTHESIA OF SKIN 04/20/2018 DARIEL LAGUNA MD, Ot R42 DIZZINESS AND GIDDINESS 04/20/2018 DARIEL LAGUNA MD, Ot Z79.01 BILLET HEATER (CURRENT) USE OF ANTICOAGULANT 04/20/2018 DARIEL LAGUNA MD Ot Z79.52 [facility]CI (CURRENT) USE OF SYSTEMIC STER 04/20/2018 DARIEL LAGNUA MD, Ot Z82.49 FAMILY HX OF ISCHEM HEART DIS AND OTH DI 04/20/2018 DARIEL LAGUNA MD Ot Z86.718 PERSONAL HISTORY OF OTHER VENOUS THROMBO 04/20/2018 DARIEL LAGUNA MD, Ot Z87.19 PERSONAL HISTORY OF OTHER DISEASES OF TH 04/20/2018 DARIEL LAGUNA MD, Ot Z88.6 ALLERGY STATUS TO ANALGESIC AGENT STATUS 04/20/2018 DARIEL LAGUNA MD Ot Z95.5 PRESENCE OF CORONARY ANGIOPLASTY IMPLANT 04/25/2018 MICHELLE ALVA DRIVER/REFUSE COLLECTOR Ot M46.86 OTHER SPECIFIED INFLAMMATORY SPONDYLOPAT 04/25/2018 MICHELLE ALVA APRN Ot M47.812 SPONDYLOSIS W/O MYELOPATHY OR RADICULOPA 04/25/2018 MICHELLE ALVA APRN Ot M48.02 SPINAL STENOSIS, CERVICAL REGION 04/25/2018 MICHELLE ALVA DRIVER/REFUSE COLLECTOR Ot 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 04/25/2018 MICHELLE ALVA APRN Ot Z98.1 ARTHRODESIS STATUS 05/13/2018 MICHELLE ALVA DRIVER/REFUSE COLLECTOR Ot M46.86 OTHER SPECIFIED INFLAMMATORY SPONDYLOPAT 05/13/2018 MICHELLE ALVA DRIVER/REFUSE COLLECTOR Ot M47.812 SPONDYLOSIS W/O MYELOPATHY OR RADICULOPA 05/13/2018 MICHELLE ALVA DRIVER/REFUSE COLLECTOR Ot M48.02 SPINAL STENOSIS, CERVICAL REGION 05/13/2018 MICHELLE ALVA DRIVER/REFUSE COLLECTOR Ot 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 05/13/2018 MICHELLE ALVA DRIVER/REFUSE COLLECTOR Ot Z98.1 ARTHRODESIS STATUS 05/17/2018 BAIMELCHOR HO L PROJECT SURVEYOR Ot I10 ESSENTIAL (PRIMARY) HYPERTENSION 05/24/2018 BAIMA MELCHOR L PROJECT SURVEYOR Ot I10 ESSENTIAL (PRIMARY) HYPERTENSION 05/24/2018 BAIMA, MELCHOR L PROJECT SURVEYOR Ot 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 05/24/2018 BAIMA MELCHOR L PROJECT SURVEYOR Ot I70.1 ATHEROSCLEROSIS OF RENAL ARTERY 05/24/2018 BAIMA MELCHOR L PROJECT SURVEYOR Ot N28.1 CYST OF KIDNEY, ACQUIRED 06/09/2018 BAIMA MELCHOR L PROJECT SURVEYOR Ot I10 ESSENTIAL (PRIMARY) HYPERTENSION 06/09/2018 BAIMA, MELCHOR L PROJECT SURVEYOR Ot 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 06/09/2018 VERNONMELCHOR HO L PROJECT SURVEYOR Ot I70.1 ATHEROSCLEROSIS OF RENAL ARTERY 06/09/2018 BAIMELCHOR HO L PROJECT SURVEYOR Ot N28.1 CYST OF KIDNEY, ACQUIRED 11/10/2018 YVES JAY, MICHELINE Pulido Ot Z01.818 ENCOUNTER FOR OTHER PREPROCEDURAL EXAMIN 11/10/2018 MICHELINE MARINELLI MD Ot Z01.818 ENCOUNTER FOR OTHER PREPROCEDURAL EXAMIN 11/10/2018 MICHELINE MARINELLI MD Ot Z01.818 ENCOUNTER FOR OTHER PREPROCEDURAL EXAMIN 11/11/2018 BUSHRA JAY FACC, SUNNY FERNÁNDEZP CCDS Ot D68.51 ACTIVATED PROTEIN C RESISTANCE 11/11/2018 BUSHRA JAY FACC, SUNNY FACP CCDS Ot I10 ESSENTIAL (PRIMARY) HYPERTENSION 11/11/2018 BUSHRA JAY FACC, SUNNY FACP CCDS Ot 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 11/11/2018 BUSHRA JAY FACC, SUNNY FACP CCDS Ot R07.89 OTHER CHEST PAIN 11/11/2018 BUSHRA JAY FACC, SUNNY FACP CCDS Ot D68.51 ACTIVATED PROTEIN C RESISTANCE 11/11/2018 BUSHRA JAY FACC, ALI FACP CCDS Ot I08.1 RHEUMATIC DISORDERS OF BOTH MITRAL AND T 11/11/2018 BUSHRA JAY [facility], ALI FACP CCDS Ot I10 ESSENTIAL (PRIMARY) HYPERTENSION 11/11/2018 BUSHRA JAY FAC, ALI FACP CCDS Ot R06.02 SHORTNESS OF BREATH 11/11/2018 BUSHRA JAY FACC, ALI FACP CCDS Ot R53.81 OTHER MALAISE 11/11/2018 BUSHRA JAY FAC, ALI FACP CCDS Ot D68.51 ACTIVATED PROTEIN C RESISTANCE 11/11/2018 BUSHRA JAY [facility], ALI FACP CCDS Ot I10 ESSENTIAL (PRIMARY) HYPERTENSION 11/11/2018 BUSHRA JAY [facility], ALI FACP CCDS Ot R06.02 SHORTNESS OF BREATH 11/11/2018 BUSHRA JAY [facility], ALI FACP CCDS Ot R53.81 OTHER MALAISE 11/11/2018 MICHELLE ALVA APRN Ot M47.812 SPONDYLOSIS W/O MYELOPATHY OR RADICULOPA 11/11/2018 MICHELLE ALVA DRIVER/REFUSE COLLECTOR Ot Z98.1 ARTHRODESIS STATUS 11/11/2018 MICHELLE ALVA DRIVER/REFUSE COLLECTOR Ot M46.86 OTHER SPECIFIED INFLAMMATORY SPONDYLOPAT 11/11/2018 MICHELLE ALVA DRIVER/REFUSE COLLECTOR Ot M47.812 SPONDYLOSIS W/O MYELOPATHY OR RADICULOPA 11/11/2018 MICHELLE ALVA DRIVER/REFUSE COLLECTOR Ot M48.02 SPINAL STENOSIS, CERVICAL REGION 11/11/2018 MICHELLE ALVA DRIVER/REFUSE COLLECTOR Ot 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 11/11/2018 MICHELLE ALVA DRIVER/REFUSE COLLECTOR Ot Z98.1 ARTHRODESIS STATUS 11/11/2018 MELCHOR ZAVALA PROJECT SURVEYOR Ot I10 ESSENTIAL (PRIMARY) HYPERTENSION 11/11/2018 MELCHOR ZAVALA PROJECT SURVEYOR Ot 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 11/11/2018 MELCHOR ZAVALA PROJECT SURVEYOR Ot I70.1 ATHEROSCLEROSIS OF RENAL ARTERY 11/11/2018 MELCHOR ZAVALA PROJECT SURVEYOR Ot N28.1 CYST OF KIDNEY, ACQUIRED 11/11/2018 MICHELINE MARINELLI MD Ot D68.2 HEREDITARY DEFICIENCY OF OTHER CLOTTING 11/11/2018 MICHELINE MARINELLI MD Ot 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 11/11/2018 MICHELINE MARINELLI MD Ot H25.11 AGE-RELATED NUCLEAR CATARACT, RIGHT EYE 11/11/2018 MICHELINE MARINELLI MD Ot H57.03 MIOSIS 11/11/2018 MICHELINE MARINELLI MD Ot I10 ESSENTIAL (PRIMARY) HYPERTENSION 11/11/2018 MICHELINE MARINELLI MD Ot Z79.01 BILLET HEATER (CURRENT) USE OF ANTICOAGULANT 11/11/2018 MICHELINE MARINELLI MD Ot Z79.899 OTHER [facility] (CURRENT) DRUG THERAPY 11/15/2018 MICHELINE MARINELLI MD Ot D68.2 HEREDITARY DEFICIENCY OF OTHER CLOTTING 11/15/2018 MICHELINE MARINELLI MD Ot 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 11/15/2018 MICHELINE MARINELLI MD Ot H25.11 AGE-RELATED NUCLEAR CATARACT, RIGHT EYE 11/15/2018 MICHELINE MARINELLI MD Ot H57.03 MIOSIS 11/15/2018 MICHELINE MARINELLI MD Ot I10 ESSENTIAL (PRIMARY) HYPERTENSION 11/15/2018 MICHELINE MARINELLI MD Ot Z79.01 BILLET HEATER (CURRENT) USE OF ANTICOAGULANT 11/15/2018 MICHELINE MARINELLI MD Ot Z79.899 OTHER BILLET HEATER (CURRENT) DRUG THERAPY 11/16/2018 BUSHRA JAY FACC, SUNNY FERNÁNDEZP CCDS Ot D68.51 ACTIVATED PROTEIN C RESISTANCE 11/16/2018 BUSHRA JAY FACC, SUNNY FACP CCDS Ot I10 ESSENTIAL (PRIMARY) HYPERTENSION 11/16/2018 BUSHRA JAY FACC, ALI FACP CCDS Ot 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 11/16/2018 BUSHRA JAY FACC, SUNNY FACP CCDS Ot R07.89 OTHER CHEST PAIN 11/16/2018 BUSHRA JAY FACC, SUNNY FACP CCDS Ot D68.51 ACTIVATED PROTEIN C RESISTANCE 11/16/2018 BUSHRA JAY FACC, SUNNY FACP CCDS Ot I08.1 RHEUMATIC DISORDERS OF BOTH MITRAL AND T 11/16/2018 BUSHRA JAY FACC, SUNNY FACP CCDS Ot I10 ESSENTIAL (PRIMARY) HYPERTENSION 11/16/2018 BUSHRA JAY FACC, SUNNY FACP CCDS Ot R06.02 SHORTNESS OF BREATH 11/16/2018 BUSHRA JAY FACC, ALI FACP CCDS Ot R53.81 OTHER MALAISE 11/16/2018 BUSHRA JAY [facility], [facility] FACP CCDS Ot D68.51 ACTIVATED PROTEIN C RESISTANCE 11/16/2018 BUSHRA JAY [facility], ALI FACP CCDS Ot I10 ESSENTIAL (PRIMARY) HYPERTENSION 11/16/2018 BUSHRA JAY [facility], ALI FACP CCDS Ot R06.02 SHORTNESS OF BREATH 11/16/2018 BUSHRA JAY [facility], ALI FACP CCDS Ot R53.81 OTHER MALAISE 11/16/2018 MICHELLE ALVA DRIVER/REFUSE COLLECTOR Ot M47.812 SPONDYLOSIS W/O MYELOPATHY OR RADICULOPA 11/16/2018 MICHELLE ALVA DRIVER/REFUSE COLLECTOR Ot Z98.1 ARTHRODESIS STATUS 11/16/2018 MICHELLE ALVA DRIVER/REFUSE COLLECTOR Ot M46.86 OTHER SPECIFIED INFLAMMATORY SPONDYLOPAT 11/16/2018 MICHELLE ALVA DRIVER/REFUSE COLLECTOR Ot M47.812 SPONDYLOSIS W/O MYELOPATHY OR RADICULOPA 11/16/2018 MICHELLE ALVA DRIVER/REFUSE COLLECTOR Ot M48.02 SPINAL STENOSIS, CERVICAL REGION 11/16/2018 MICHELLE ALVA DRIVER/REFUSE COLLECTOR Ot 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 11/16/2018 MICHELLE ALVA DRIVER/REFUSE COLLECTOR Ot Z98.1 ARTHRODESIS STATUS 11/16/2018 MELCHOR ZAVALA PROJECT SURVEYOR Ot I10 ESSENTIAL (PRIMARY) HYPERTENSION 11/16/2018 MELCHOR ZAVALA PROJECT SURVEYOR Ot 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 11/16/2018 MELCHOR ZAVALA PROJECT SURVEYOR Ot I70.1 ATHEROSCLEROSIS OF RENAL ARTERY 11/16/2018 MELCHOR ZAVALA PROJECT SURVEYOR Ot N28.1 CYST OF KIDNEY, ACQUIRED 11/24/2018 MICHELINE MARINELLI MD Ot Z01.818 ENCOUNTER FOR OTHER PREPROCEDURAL EXAMIN 11/24/2018 MICHELINE MARINELLI MD Ot Z01.818 ENCOUNTER FOR OTHER PREPROCEDURAL EXAMIN 11/25/2018 MICHELINE MARINELLI MD Ot Z01.818 ENCOUNTER FOR OTHER PREPROCEDURAL EXAMIN 11/25/2018 MICHELINE MARINELLI MD Ot D68.2 HEREDITARY DEFICIENCY OF OTHER CLOTTING 11/25/2018 MICHELINE MARINELLI MD Ot 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 11/25/2018 MICHELINE MARINELLI MD Ot H25.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, LEFT EYE 11/25/2018 MICHELINE MARINELLI MD Ot H57.03 MIOSIS 11/25/2018 MICHELINE MARINELLI MD Ot I10 ESSENTIAL (PRIMARY) HYPERTENSION 11/25/2018 MICHELINE MARINELLI MD Ot Z79.01 BILLET HEATER (CURRENT) USE OF ANTICOAGULANT 11/25/2018 MICHELINE MARINELLI MD Ot Z79.899 OTHER BILLET HEATER (CURRENT) DRUG THERAPY 11/29/2018 MICHELINE MARINELLI MD Ot D68.2 HEREDITARY DEFICIENCY OF OTHER CLOTTING 11/29/2018 MICHELINE MARINELLI MD Ot 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 11/29/2018 MICHELINE MARINELLI MD Ot H57.03 MIOSIS 11/29/2018 MICHELINE MARINELLI MD Ot I10 ESSENTIAL (PRIMARY) HYPERTENSION 11/29/2018 MICHELINE MARINELLI MD Ot Z79.01 BILLET HEATER (CURRENT) USE OF ANTICOAGULANT 11/29/2018 MICHELINE MARINELLI MD Ot Z79.899 OTHER BILLET HEATER (CURRENT) DRUG THERAPY 11/29/2018 MICHELINE MARINELLI MD Ot D68.2 HEREDITARY DEFICIENCY OF OTHER CLOTTING 11/29/2018 MICHELINE MARINELLI MD Ot 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 11/29/2018 MICHELINE MARINELLI MD Ot H25.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, LEFT EYE 11/29/2018 MICHELINE MARINELLI MD Ot H57.03 MIOSIS 11/29/2018 MICHELINE MARINELLI MD Ot I10 ESSENTIAL (PRIMARY) HYPERTENSION 11/29/2018 MICHELINE MARINELLI MD Ot Z79.01 [facility]CI (CURRENT) USE OF ANTICOAGULANT 11/29/2018 MICHELINE MARINELLI MD Ot Z79.899 OTHER [facility] (CURRENT) DRUG THERAPY 01/25/2019 Ot 289.81 PRIMARY HYPERCOAGULABLE STATE 01/25/2019 Ot 440.1 RENAL ARTERY ATHEROSCLER 01/25/2019 Ot 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 01/25/2019 Ot 550.90 UNILAT INGUINAL HERNIA 01/25/2019 Ot 593.9 RENAL URETERAL DIS NOS 01/25/2019 Ot V58.61 ANTICOAGULANTS,LT,CURRENT USE 01/25/2019 Ot V58.69 OTH MED,LT,CURRENT USE 01/25/2019 Ot 453.40 ACUTE VENOUS EMBOLISM THROMBOSIS UNSP 01/25/2019 Ot 550.90 UNILAT INGUINAL HERNIA 01/25/2019 Ot V72.63 PRE-PROCEDURAL LABORATORY EXAMINATION 01/25/2019 Ot V72.81 [id number] CARDIOVASCULAR 01/25/2019 Ot V74.8 SCREEN-BACTERIAL DIS NEC 01/25/2019 Ot 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 01/25/2019 Ot 289.81 PRIMARY HYPERCOAGULABLE STATE 01/25/2019 Ot 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 01/25/2019 Ot 585.9 CHRONIC KIDNEY DISEASE, UNSPECIFIED 01/25/2019 Ot V58.61 ANTICOAGULANTS,LT,CURRENT USE 01/25/2019 Ot V58.69 OTH MED,LT,CURRENT USE 01/25/2019 Ot 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 01/25/2019 Ot 289.81 PRIMARY HYPERCOAGULABLE STATE 01/25/2019 Ot 440.1 RENAL ARTERY ATHEROSCLER 01/25/2019 Ot 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 01/25/2019 Ot 585.9 CHRONIC KIDNEY DISEASE, UNSPECIFIED 01/25/2019 Ot V58.61 ANTICOAGULANTS,LT,CURRENT USE 01/25/2019 Ot V58.69 OTH MED,LT,CURRENT USE 01/25/2019 Ot 289.81 PRIMARY HYPERCOAGULABLE STATE 01/25/2019 Ot 550.90 UNILAT INGUINAL HERNIA 01/25/2019 Ot 553.3 DIAPHRAGMATIC HERNIA 01/25/2019 Ot V72.63 PRE-PROCEDURAL LABORATORY EXAMINATION 01/25/2019 Ot V72.81 [id number] CARDIOVASCULAR 01/25/2019 Ot V74.8 SCREEN-BACTERIAL DIS NEC 01/25/2019 Ot 722.0 CERVICAL DISC DISPLACMNT 01/25/2019 Ot 782.0 SKIN SENSATION DISTURB 01/25/2019 Ot 401.9 HYPERTENSION NOS 01/25/2019 Ot 593.2 CYST OF KIDNEY, ACQUIRED 01/25/2019 Ot 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 01/25/2019 Ot 289.81 PRIMARY HYPERCOAGULABLE STATE 01/25/2019 Ot 440.1 RENAL ARTERY ATHEROSCLER 01/25/2019 Ot V12.51 HX-VENOUS THROMBOSIS EMBOLISM 01/25/2019 Ot V58.61 ANTICOAGULANTS,LT,CURRENT USE 01/25/2019 Ot V58.69 OTH MED,LT,CURRENT USE 01/25/2019 BUSHRA JAY [facility], ALI FACP CCDS Ot D68.51 ACTIVATED PROTEIN C RESISTANCE 01/25/2019 BUSHRA JAY [facility], ALI FACP CCDS Ot I10 ESSENTIAL (PRIMARY) HYPERTENSION 01/25/2019 BUSHRA JAY [facility], ALI FACP CCDS Ot 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 01/25/2019 BUSHRA MD [facility], ALI FACP CCDS Ot R07.89 OTHER CHEST PAIN 01/25/2019 BUSHRA MD [facility], ALI FACP CCDS Ot D68.51 ACTIVATED PROTEIN C RESISTANCE 01/25/2019 BUSHRA JAY [facility], ALI FACP CCDS Ot I08.1 RHEUMATIC DISORDERS OF BOTH MITRAL AND T 01/25/2019 BUSHRA JAY [facility], ALI FACP CCDS Ot I10 ESSENTIAL (PRIMARY) HYPERTENSION 01/25/2019 BUSHRA JAY [facility], ALI FACP CCDS Ot R06.02 SHORTNESS OF BREATH 01/25/2019 BUSHRA JAY [facility], ALI FACP CCDS Ot R53.81 OTHER MALAISE 01/25/2019 BUSHRA JAY [facility], ALI FACP CCDS Ot D68.51 ACTIVATED PROTEIN C RESISTANCE 01/25/2019 BUSHRA JAY [facility], ALI FACP CCDS Ot I10 ESSENTIAL (PRIMARY) HYPERTENSION 01/25/2019 BUSHRA JAY [facility], ALI FACP CCDS Ot R06.02 SHORTNESS OF BREATH 01/25/2019 BUSHRA JAY [facility], ALI FACP CCDS Ot R53.81 OTHER MALAISE 01/25/2019 MICHELLE ALVA APRN Ot M47.812 SPONDYLOSIS W/O MYELOPATHY OR RADICULOPA 01/25/2019 MICHELLE ALVA APRN Ot Z98.1 ARTHRODESIS STATUS 01/25/2019 MICHELLE ALVA APRN Ot M46.86 OTHER SPECIFIED INFLAMMATORY SPONDYLOPAT 01/25/2019 MICHELLE ALVA APRN Ot M47.812 SPONDYLOSIS W/O MYELOPATHY OR RADICULOPA 01/25/2019 MICHELLE ALVA APRN Ot M48.02 SPINAL STENOSIS, CERVICAL REGION 01/25/2019 MICHELLE ALVA APRN Ot 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 01/25/2019 ARTIE MICHELLE Lee DRIVER/REFUSE COLLECTOR Ot Z98.1 ARTHRODESIS STATUS 01/25/2019 MELCHOR ZAVALA PROJECT SURVEYOR Ot I10 ESSENTIAL (PRIMARY) HYPERTENSION 01/25/2019 MELCHOR ZAVALA PROJECT SURVEYOR Ot 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 01/25/2019 MELCHOR ZAVALA PROJECT SURVEYOR Ot I70.1 ATHEROSCLEROSIS OF RENAL ARTERY 01/25/2019 MELCHOR ZAVALA PROJECT SURVEYOR Ot N28.1 CYST OF KIDNEY, ACQUIRED 01/25/2019 Ot 289.81 PRIMARY HYPERCOAGULABLE STATE 01/25/2019 Ot 440.1 RENAL ARTERY ATHEROSCLER 01/25/2019 Ot 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 01/25/2019 Ot 550.90 UNILAT INGUINAL HERNIA 01/25/2019 Ot 593.9 RENAL URETERAL DIS NOS 01/25/2019 Ot V58.61 ANTICOAGULANTS,LT,CURRENT USE 01/25/2019 Ot V58.69 OTH MED,LT,CURRENT USE 01/25/2019 Ot 453.40 ACUTE VENOUS EMBOLISM THROMBOSIS UNSP 01/25/2019 Ot 550.90 UNILAT INGUINAL HERNIA 01/25/2019 Ot V72.63 PRE-PROCEDURAL LABORATORY EXAMINATION 01/25/2019 Ot V72.81 [id number] CARDIOVASCULAR 01/25/2019 Ot V74.8 SCREEN-BACTERIAL DIS NEC 01/25/2019 Ot 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 01/25/2019 Ot 289.81 PRIMARY HYPERCOAGULABLE STATE 01/25/2019 Ot 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 01/25/2019 Ot 585.9 CHRONIC KIDNEY DISEASE, UNSPECIFIED 01/25/2019 Ot V58.61 ANTICOAGULANTS,LT,CURRENT USE 01/25/2019 Ot V58.69 OTH MED,LT,CURRENT USE 01/25/2019 Ot 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 01/25/2019 Ot 289.81 PRIMARY HYPERCOAGULABLE STATE 01/25/2019 Ot 440.1 RENAL ARTERY ATHEROSCLER 01/25/2019 Ot 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 01/25/2019 Ot 585.9 CHRONIC KIDNEY DISEASE, UNSPECIFIED 01/25/2019 Ot V58.61 ANTICOAGULANTS,LT,CURRENT USE 01/25/2019 Ot V58.69 OTH MED,LT,CURRENT USE 01/25/2019 Ot 722.0 CERVICAL DISC DISPLACMNT 01/25/2019 Ot 782.0 SKIN SENSATION DISTURB 01/25/2019 Ot 401.9 HYPERTENSION NOS 01/25/2019 Ot 593.2 CYST OF KIDNEY, ACQUIRED 01/25/2019 Ot 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 01/25/2019 Ot 289.81 PRIMARY HYPERCOAGULABLE STATE 01/25/2019 Ot 440.1 RENAL ARTERY ATHEROSCLER 01/25/2019 Ot V12.51 HX-VENOUS THROMBOSIS EMBOLISM 01/25/2019 Ot V58.61 ANTICOAGULANTS,LT,CURRENT USE 01/25/2019 Ot V58.69 OTH MED,LT,CURRENT USE 01/25/2019 Ot 440.1 RENAL ARTERY ATHEROSCLER 01/25/2019 Ot 753.10 CYSTIC KIDNEY DISEASE, UNSPECIFIED 01/25/2019 Ot 401.9 HYPERTENSION NOS 01/25/2019 Ot 440.0 AORTIC ATHEROSCLEROSIS 01/25/2019 Ot 440.1 RENAL ARTERY ATHEROSCLER 01/25/2019 Ot 593.2 CYST OF KIDNEY, ACQUIRED 01/25/2019 Ot 440.1 RENAL ARTERY ATHEROSCLER 01/25/2019 Ot 753.10 CYSTIC KIDNEY DISEASE, UNSPECIFIED 01/25/2019 Ot 401.9 HYPERTENSION NOS 01/25/2019 Ot 440.0 AORTIC ATHEROSCLEROSIS 01/25/2019 Ot 440.1 RENAL ARTERY ATHEROSCLER 01/25/2019 Ot 593.2 CYST OF KIDNEY, ACQUIRED 01/25/2019 BUSHRA JAY FACC, SUNNY FACP CCDS Ot D68.51 ACTIVATED PROTEIN C RESISTANCE 01/25/2019 BUSHRA JAY FACC, SUNNY FACP CCDS Ot I10 ESSENTIAL (PRIMARY) HYPERTENSION 01/25/2019 BUSHRA JAY FACC, SUNNY FACP CCDS Ot 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 01/25/2019 BUSHRA JAY FACC, ALI FACP CCDS Ot R07.89 OTHER CHEST PAIN 01/25/2019 BUSHRA JAY FACC, ALI FACP CCDS Ot D68.51 ACTIVATED PROTEIN C RESISTANCE 01/25/2019 BUSHRA JAY FACC, SUNNY FACP CCDS Ot I08.1 RHEUMATIC DISORDERS OF BOTH MITRAL AND T 01/25/2019 BUSHRA AJY FACC, SUNNY FACP CCDS Ot I10 ESSENTIAL (PRIMARY) HYPERTENSION 01/25/2019 BUSHRA JAY FACC, SUNNY FACP CCDS Ot R06.02 SHORTNESS OF BREATH 01/25/2019 BUSHRA JAY FACC, SUNNY [facility] CCD[facility] Ot R53.81 OTHER MALAISE 01/25/2019 BUSHRA JAY FACC, SUNNY FACP CCDS Ot D68.51 ACTIVATED PROTEIN C RESISTANCE 01/25/2019 BUSHRA JAY FACC, ALI FACP CCDS Ot I10 ESSENTIAL (PRIMARY) HYPERTENSION 01/25/2019 BUSHRA JAY FACC, ALI FACP CCDS Ot R06.02 SHORTNESS OF BREATH 01/25/2019 BUSHRA JAY FACC, ALI FACP CCDS Ot R53.81 OTHER MALAISE 01/25/2019 MICHELLE ALVA DRIVER/REFUSE COLLECTOR Ot M47.812 SPONDYLOSIS W/O MYELOPATHY OR RADICULOPA 01/25/2019 MICHELLE ALVA DRIVER/REFUSE COLLECTOR Ot Z98.1 ARTHRODESIS STATUS 01/25/2019 MICHELLE ALVA DRIVER/REFUSE COLLECTOR Ot M46.86 OTHER SPECIFIED INFLAMMATORY SPONDYLOPAT 01/25/2019 MICHELLE ALVA APRN Ot M47.812 SPONDYLOSIS W/O MYELOPATHY OR RADICULOPA 01/25/2019 MICHELLE ALVA DRIVER/REFUSE COLLECTOR Ot M48.02 SPINAL STENOSIS, CERVICAL REGION 01/25/2019 MICHELLE ALVA DRIVER/REFUSE COLLECTOR Ot 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 Results Test [...] Automated erythrocyte mean corpuscular hemoglobin concentration measurement (mass/volume) 35 g/dL 32-36 Automated erythrocyte distribution width ratio 13.5 % 10.0- 14.5 Automated blood platelet count (count/volume) 229 10*3/uL [...] Blood monocytes automated count (number/volume) 0.7 10*3 0.0- 1.0 Automated eosinophil count 0.2 10*3/uL 0.0-0.3 Automated [...] Serum or plasma aspartate aminotransferase measurement (enzymatic activity/volume) 20 U/L 5-34 Serum or plasma alanine aminotransferase measurement (enzymatic activity/volume) 22 U/L 0-55 Serum or plasma protein measurement (mass/volume) 7.1 g/dL 6.4-8.2 Serum or plasma albumin measurement (mass/volume) 3.9 g/dL 3.2-4.5 Magnesium - 04/14/18 08:30 Magnesium 1.9 mg/dL 1.8-2.4 Serum or plasma troponin i.cardiac measurement (mass/volume) - 04/14/18 08:30 Serum or plasma troponin i.cardiac measurement (mass/volume) < ng/mL <0.30 Serum or plasma thyrotropin measurement by detection limit <=0.05 miu/l (units/volume) - 04/14/18 08:30 Serum or plasma thyrotropin measurement by detection limit <=0.05 miu/l (units/volume) 0.69 u[iU]/mL 0.35-4.94 Complete urinalysis with reflex to culture - 04/14/18 09:15 Urine color determination YELLOW NRG Urine clarity determination CLEAR NRG Urine pH measurement by test strip 5 5-9 Specific gravity of urine by test strip 1.020 1.016-1.022 Urine protein assay by test strip, semi-quantitative [...] sediment leukocyte count by microscopy (number/high power field) RARE NRG Bacteria detection in urine sediment [...] Status Pt. Type Provider Facility Loc./Unit Complaint [id number] 11/25/2018 08:19:00 11/25/2018 09:39:00 DIS Outpatient MICHELINE MARINELLI MD Via [facility] LEFT EYE CATARACT [id number] 11/24/2018 10:15:00 11/24/2018 10:21:00 DIS Outpatient MICHELINE MARINELLI MD Via [facility] PREOP LEFT CATARACT [id number] 11/11/2018 07:49:00 11/11/2018 09:35:00 DIS Outpatient MICHELINE MARINELLI MD Via [facility] RIGHT CATARACT [id number] 11/10/2018 13:23:00 11/10/2018 14:01:00 DIS Outpatient MICHELINE MARINELLI MD Via [facility] PREOP RIGHT CATARACT [id number] 05/20/2018 10:00:00 05/20/2018 23:59:59 CLS Outpatient MELCHOR ZAVALA Via [facility] RAD I10 HTN [id number] 04/23/2018 10:01:00 04/23/2018 23:59:59 CLS Outpatient MICHELLE ALVA APRN [facility] RAD NECK PAIN,NUMBNESS [id number] 04/15/2018 10:13:00 04/15/2018 23:59:59 CLS Outpatient MICHELLE ALVA APRN [facility] RAD NECK PAIN,PARASTHESIA [id number] 04/14/2018 08:16:00 04/14/2018 12:27:00 DIS Emergency LUZ ELENA JAY, DARIEL Patricio [facility] ER CHEST PRESSURE,LEFT SIDE NUMB [id number] 04/07/2018 09:46:00 04/07/2018 23:59:59 CLS Outpatient BUSHRA JAY FACC, ALI FACP CCDS [facility] CARD MALAISE,SOB,UNCONTROLLED HTN [id number] 03/31/2018 07:14:00 03/31/2018 23:59:59 CLS Outpatient BUSHRA JAY FACC, ALI FACP CCDS [facility] CARD MALAISE,SOB,UNCONTROLLED HTN [id number] 04/14/2016 07:23:00 04/14/2016 23:59:59 CLS Outpatient BUSHRA JAY FACC, ALI FACP CCDS [facility] CARD UNCONTROLLED HTN,CHEST DISCOMFORT [id number] 08/16/2013 10:01:00 08/17/2013 17:30:00 DIS Inpatient TONYA JAY, ALYCE Simental [facility] CSD HYPERTENSIVE EMERGENCY PARESTHESIAS CHEST PAIN [id number] 02/13/2019 06:51:00 ACT Emergency NEMO JAY, RAHEEL Abbott [facility] ER CHEST PAIN, SOB, [facility] BLOOD PRESSURE [id number] 01/25/2019 01:35:00 Document Registration [id number] 04/14/2016 07:23:00 Document Registration [id number] 04/14/2016 07:22:00 Document Registration [id number] 01/11/2013 08:30:00 Document Registration [id number] 01/04/2013 07:34:00 Document Registration [id number] 11/23/2012 08:22:00 Document Registration [id number] 11/14/2012 07:48:00 Document Registration [id number] 06/29/2012 18:19:00 Document Registration [id number] 06/28/2012 12:58:00 Document Registration [id number] 10/16/2011 07:49:00 Document Registration [id number] 06/30/2011 13:18:00 Document Registration [id number] 04/27/2011 06:59:00 Document Registration [id number] 12/25/2010 05:42:00 Document Registration [id number] 12/22/2010 07:54:00 Document Registration [id number] 04/29/2010 09:30:00 Document Registration [id number] 12/23/2009 08:45:00 Document Registration [id number] 11/12/2009 09:46:00 Document Registration 0000 06/23/2017 19:07:32 06/23/2017 23:59:59 [facility] Outpatient
--- NOTE | 2019-02-13 13:24 | Consultation-Cardiology ---
HPI-Cardiology Cardiology Consultation: Date of Consultation 02/13/19 Time Seen by a Provider: 13:05 Date of Admission Attending Physician Mahnaz Fajardo MD Admitting Physician Mahnaz Fajardo MD Consulting Physician SUNNY TOMLINSON MD, MA, FACP, FACC, FSCAI, CCDS HPI: Chief Complaint: CC: Chest pain HPI Mr. Gupta is a 73 year old male admitted to ICU 12 from the ED. He reports yesterday evening around 7 p.m. he began to have pain in his right shoulder blade which he describes as a ache. He reports it would improve if he would lie on his right side and get worse if he laid on his left side. He reports the discomfort was still present this morning when he woke up. He reports he checked his BP and noted it to be high which prompted him to come to the ED. The right shoulder discomfort had been present, steady for several hours at this point. He states when he got to the ED window to check in the shoulder blade pain radiated to his right ACW which he describes as an ache. He reports feeling some nausea at that time. He states he received nitro sublingual in the ED which did result in some relief and improvement in his BP. He was still having the right shoulder blade pain. He states he received morphine in the ED which resulted in complete resolution of ACW pain and improvement in the shoulder blade pain. He states he continues to have a dull ache in his shoulder blade. No c/o palpitations, syncope or near syncope. No c/o LE swelling. He reports he was taking Norvasc at home, but stopped it a few weeks ago d/t LE swelling. He reports intolerance to Doxazosin d/t dizziness and fatigue. He denies any n/v/d. No c/o fever or chills. Review of Systems-Cardiology Review of Systems Constitutional: No chills, No fever Eyes: No vision change Ears/Nose/Throat: No epistaxis, No recent hearing loss Respiratory: As described under HPI Cardiovascular: As described under HPI Gastrointestinal: No constipation, No diarrhea, No nausea, No vomiting Genitourinary: No dysuria, No hematuria Musculoskeletal: As describe under HPI Skin: No dryness, No rash, No ulcerations Psychiatric/Neurological: No seizure, No focal weakness, No syncope Hematologic: No bleeding abnormalities JAL-Xcldcj-Sxtjld Hx Patient Social History Alcohol Use: Denies Use Recreational Drug Use: No Smoking Status: Former Smoker 2nd Hand Smoke Exposure: No Recent Foreign Travel: No Recent Infectious Disease Expo: No Past Medical History PMH As described under Assessment. Family Medical History Family Medical History: Reports family h/o father having HTN. Mother having HTN and CVA. Sister having HTN. Family History: Family history: Hypertension 03 FATHER 03 MOTHER 09 SISTER History of - disorder 03 FATHER (PASSED FROM ALS LIKE SYMPTOMS, BLOOD CLOTTING DISORDER ) 03 MOTHER Hypercholesterolemia 09 SISTER Myocardial infarction 03 MOTHER Neoplasm 03 MOTHER Stroke 03 MOTHER, Onset:60 years & older Allergies and Home Medications Allergies Coded Allergies: aspirin (Unverified Allergy, Mild, HIVES, 12/23/09) Home Medications Amlodipine Besylate 5 Mg Tablet, 5 MG PO DAILY, (Reported) Carvedilol 12.5 Mg Tablet, 12.5 MG PO BID, (Reported) Cholecalciferol (Vitamin D3) 10,000 Unit Tablet, 10,000 UNIT PO BID, (Reported) Lisinopril 20 Mg Tablet, 20 MG PO BID, (Reported) Magnesium Oxide 250 Mg Tablet, 250 MG PO BID, (Reported) Tamsulosin HCl 0.4 Mg Cap, 0.4 MG PO BID, (Reported) Ubiquinol 100 Mg Capsule, 100 MG PO DAILY, (Reported) Warfarin Sodium 3 Mg Tablet, 3 MG PO DAILY, (Reported) Patient Home Medication List Home Medication List Reviewed: Yes Physical Exam-Cardiology Physical Exam Vital Signs/I&O 02/13/19 02/13/19 02/13/19 02/13/19 07:13 07:22 07:22 07:27 Temp 97.5 97.5 97.5 Pulse 53 Resp 20 B/P (MAP) 226/114 (151) Pulse Ox 96 O2 Delivery Room Air Room Air 02/13/19 02/13/19 02/13/19 02/13/19 10:55 11:00 11:15 11:16 Temp 97.7 Pulse 56 50 51 Resp 18 25 B/P (MAP) 182/96 (124) 191/101 (131) Pulse Ox 97 98 O2 Delivery Room Air Room Air Room Air 02/13/19 02/13/19 02/13/19 11:45 12:05 12:06 Temp 96.7 Pulse 53 Resp 23 B/P (MAP) 201/118 (145) O2 Delivery Room Air Room Air Capillary Refill : Less Than 3 Seconds Constitutional: AAO x 3, well-developed, well-nourished HEENT: hearing is well preserved, oral hygience is good Neck: No carotid bruit; carotid pulses are 2 + bilaterally Respiratory: No accessory muscle use, No respiratory distress; chest expansion is symmetric, chest is bilaterally symmetric, lungs clear to auscultation Cardiovascular: regular rate-rhythm; No JVD; S1 and S2 Gastrointestinal: No tender; soft, round, audible bowel sounds Extremities: no lower extremity edema bilateral Neurologic/Psychiatric: grossly intact, power is 5/5 both on sides Skin: No rash, No ulcerations Data Review Labs Laboratory Tests 02/13/19 07:03: White Blood Count 8.9, Red Blood Count 5.55, Hemoglobin 16.4, Hematocrit 47, Mean Corpuscular Volume 85, Mean Corpuscular Hemoglobin 30, Mean Corpuscular Hemoglobin Concent 35, Red Cell Distribution Width 13.9, Platelet Count 234, Mean Platelet Volume 11.4H, Neutrophils (%) (Auto) 58, Lymphocytes (%) (Auto) 30, Monocytes (%) (Auto) 10, Eosinophils (%) (Auto) 1, Basophils (%) (Auto) 2, Neutrophils # (Auto) 5.2, Lymphocytes # (Auto) 2.7, Monocytes # (Auto) 0.9, Eosinophils # (Auto) 0.1, Basophils # (Auto) 0.2H, Prothrombin Time 24.5H, INR Comment 2.1H, Activated Partial Thromboplast Time 39H, D-Dimer 0.35, Sodium Level 138, Potassium Level 4.8, Chloride Level 109H, Carbon Dioxide Level 14L, Anion Gap 15H, Blood Urea Nitrogen 12, Creatinine 1.30, Estimat Glomerular Filtration Rate 54, BUN/Creatinine Ratio 9, Glucose Level 130H, Calcium Level 9.2, Corrected Calcium 9.3, Magnesium Level 2.8H, Total Bilirubin 0.4, Aspartate Amino Transf (AST/SGOT) 30, Alanine Aminotransferase (ALT/SGPT) 24, Alkaline Phosphatase 122, Myoglobin 59.5, Troponin I < 0.028, B-Type Natriuretic Peptide 69.9, Total Protein 7.8, Albumin 3.9 02/13/19 13:06: A/P-Cardiology Assessment/Admission Diagnosis Chest pain of undetermined etiology Uncontrolled hypertension Cholelithiasis seen on CT chest of 02/13/19. Consider referred gallbladder apin Pulm nodule (7mm) on CT chest of 02/13/19. F/u with Dr snow Reported intolerance to Doxazosin secondary to fatigue and dizziness. Reported intolerance to Norvasc d/t LE swelling. H/o L renal artery stenosis treated with stenting of L main and L accessory renal arteries in 2001 at [facility] in , patent and with only mild stenosis on CT angio of abdomen on 11/23/12. No KASSANDRA on renal u/s of 05/20/18 (renal cysts were found for which f/u is advised with pcp) Factor V Leiden mutation, treated with chronic warfarin therapy that is managed by Dr Fajardo S/p [place] filter in [address] Benjamin at [place], [place] Echo of March 2018 showed LVEF 60-65%. Grade 1 diastolic dysfunction. PASP 25- 30mmHg. Mild TR and MR. H/o R carotid artery stenosis (mod on u/s of and mild on CTA of 08/17/13) MPI of March 2018 showed no evidence of significant ischemia or infarction. LVEF 67% Minimal carotid plaque without evidence of hemodynamic significance in March 2018 Discussion and Recomendations Chest discomfort of undetermined etiology with no evidence of ACS thus far Discussed further coronary evaluation with cardiac cath. He would like to consider and will decide. Uncontrolled hypertension with reported intolerance to Norvasc and Cardura for reasons noted above Asymptomatic bradycardia precludes us from increasing his BB dose Not suitable candidate for clonidine either d/t risk of worsening bradycardia Will add Hydralazine for BP control Monitor lab closely Further recs will be based on his hospital course We would like to thank Medical Services for this consult Clinical Quality Measures AMI/AHF: ASA po Prior to arrival: No DVT/VTE Risk/Contraindication: Risk Factor Score Per Nursin RFS Level Per Nursing on Admit: 4+=Very High SUNNY TOMLINSON MD FACP FAC CCDS February 13, 2019 13:23
[2019-02-13] MEDS: hydrALAZINE (APRESOLINE) 25 MG TAB PO SCH ×2 (13:35→22:09)
[2019-02-13] MEDS ORDERED: hydrALAZINE (APRESOLINE) 25 MG TAB PO SCH (14:00)
[2019-02-13] MEDS ORDERED: TAMS0.4C98 PO (14:29)
[2019-02-13] MEDS ORDERED: CHOL5000 PO (14:29)
[2019-02-13] MEDS ORDERED: UBID1CAP53 PO (14:29)
[2019-02-13] MEDS ORDERED: LISI40TA PO (14:29)
[2019-02-13] MEDS ORDERED: ACET-2650 PO (14:29)
--- NOTE | 2019-02-13 14:30 | NUR ---
WENT OVER THE EXT MED HX WITH THE PATIENT, HE VERIFIED HOW HE TAKES HIS MEDICATIONS AND LISTED HIS OTC MEDS.
[2019-02-13] MEDS ORDERED: warFARin 3 MG (COUMADIN) TAB PO SCH (18:00)
[2019-02-13] MEDS: CARVEDILOL 12.5 MG (COREG) TABLET PO SCH (22:08)
[2019-02-13] MEDS: ATORVASTATIN 40 MG (LIPITOR) TABLET PO SCH (22:08)
[2019-02-13] MEDS: TAMSULOSIN 0.4 MG (FLOMAX) CAP PO SCH (22:09)
[2019-02-14] VITALS (18 sets, daily range): BP systolic 137–211; BP diastolic 70–103
[2019-02-14 03:35] LABS: BASOPHILS # (AUTO) 0.1 10^3/uL (0.0-0.1); BASOPHILS % (AUTO) 1 % (0-10); EOSINOPHILS # (AUTO) 0.1 10^3/uL (0.0-0.3); EOSINOPHILS % (AUTO) 1 % (0-10); HEMATOCRIT 42 % (40-54); HEMOGLOBIN 14.7 G/DL (13.3-17.7); LYMPHOCYTES # (AUTO) 1.8 X 10^3 (1.0-4.0); LYMPHOCYTES % (AUTO) 17 % (12-44); MEAN CORPUSCULAR HEMOGLOBIN 29 PG (25-34); MEAN CORPUSCULAR HGB CONC 35 G/DL (32-36); MEAN CORPUSCULAR VOLUME 83 FL (80-99); MEAN PLATELET VOLUME 10.7 FL (7.4-10.4); MONOCYTES # (AUTO) 0.9 X 10^3 (0.0-1.0); MONOCYTES % (AUTO) 8 % (0-12); NEUTROPHILS % (AUTO) 74 % (42-75); PLATELET COUNT 214 10^3/uL (130-400); WHITE BLOOD COUNT 10.8 10^3/uL (4.3-11.0)
[2019-02-14 03:48] LABS: INR 2.1 (0.8-1.4); PROTHROMBIN TIME PATIENT 24.6 SEC (12.2-14.7)
[2019-02-14 04:00] LABS: BUN/CREATININE RATIO 11; CALCIUM 9.1 MG/DL (8.5-10.1); CARBON DIOXIDE 20 MMOL/L (21-32); CHLORIDE 109 MMOL/L (98-107); CHOLESTEROL 207 MG/DL (< 200); GFR ESTIMATED > 60; GLUCOSE 134 MG/DL (70-105); HDL CHOLESTEROL 26 MG/DL (40-60); POTASSIUM 3.9 MMOL/L (3.6-5.0); SODIUM 141 MMOL/L (135-145); TRIGLYCERIDES 427 MG/DL (<150)
[2019-02-14] MEDS: hydrALAZINE (APRESOLINE) 25 MG TAB PO SCH ×3 (06:00→22:54)
[2019-02-14] MEDS ORDERED: warFARin 3 MG (COUMADIN) TAB PO SCH (06:30)
[2019-02-14] MEDS: CARVEDILOL 12.5 MG (COREG) TABLET PO SCH ×2 (08:23→21:04)
--- NOTE | 2019-02-14 08:28 | History & Physicial ---
History of Present Illness History of Present Illness Reason for visit/HPI LATE ENTRY NOTE DUE TO STORMS CAUSING POWER OUTAGE YESTERDAY EVENING. PT WAS SEEN AT 1620 ON 02/13/19 - HE REPORTS THAT HE STARTED TO HAVE CHEST DISCOMFORT GOING UP TO HIS SHOULDER/UPPER BACK ON THE RIGHT SIDE. HE STATES THAT HE FELT OFF ALL DAY ON THE DAY OF ADMISSION FEELING LIKE HE WAS "TRAILING MYSELF" ALL DAY. HE REPORTS THAT HE FINALLY TOOK HIS BLOOD PRESSURE WITH READINGS OF 240'S/100'S. HE THEN PRESENTED TO THE EMERGENCY DEPARTMENT WHERE HIS BLOOD PRESSURE WAS STILL QUITE ELEVATED. THE EMERGENCY DEPARTMENT GAVE HIM NITROGLYCERINE - HIS BLOOD PRESSURE PRECIPITOUSLY DROPPED TO THE 140'S/80'S AND HIS CHEST PAIN RESOLVED. HE DOES REPORT SOME NAUSEA WELL FOR SEVERAL DAYS. Date of Admission February 13, 2019 at 1620 Date Seen by a Provider: February 13, 2019 Time Seen by a Provider: 16:20 I consulted on this patient on 02/13/19 1620 Attending Physician Alyce Fajardo MD Admitting Physician Alyce Fajardo MD Consult cardiology Allergies and Home Medications Allergies Coded Allergies: aspirin (Unverified Allergy, Mild, HIVES, 12/23/09) Home Medications Acetaminophen 650 Mg Tablet.er, 1,300 MG PO BID PRN for PAIN-MILD, (Reported) Atorvastatin Calcium 40 Mg Tablet, 40 MG PO HS Prescribed by: ALYCE FAJARDO on 02/15/19 0850 Carvedilol 12.5 Mg Tablet, 12.5 MG PO BID, (Reported) Cholecalciferol (Vitamin D3) 5,000 Unit Capsule, 5,000 UNIT PO DAILY, (Reported) Clopidogrel Bisulfate 75 Mg Tablet, 75 MG PO DAILY HOLD UNTIL AFTER GALLBLADDER SURGERY Prescribed by: ALYCE FAJARDO on 02/15/19 0850 Doxazosin Mesylate 4 Mg Tablet, 4 MG PO Q8HR Prescribed by: ALYCE FAJARDO on 02/15/19 0850 Enoxaparin Sodium 40 Mg/0.4 Ml Syringe, 40 MG SC Q24H ONE DOSE DAILY - HOSPITAL GAVE WEDNESDAY DOSE, HOLD ON WEDNESDAY, THEN TAKE DAILY POST OPERATIVELY FOR BRIDGING COUMADIN Prescribed by: ALYCE FAJARDO on 02/15/19 0850 Hydralazine HCl 25 Mg Tablet, 50 MG PO Q8HR Prescribed by: ALYCE FAJARDO on 02/15/19 0850 Lisinopril 40 Mg Tablet, 20 MG PO BID, (Reported) TAKES 1/2 (40MG) TABLET Magnesium Oxide 250 Mg Tablet, 250 MG PO BID, (Reported) Tamsulosin HCl 0.4 Mg Cap, 0.4 MG PO BID, (Reported) Ubidecarenone/Vit E Acetate 1 Each Capsule, 1 CAP PO DAILY, (Reported) Warfarin Sodium 3 Mg Tablet, 1 TAB PO UD HOLD COUMADIN UNTIL AFTER GALLBLADDER SURGERY THEN TAKE 3MG FOR 2 DAYS THEN TAKE 1.5MG FOR ONE DAY THEN REPEAT. Prescribed by: ALYCE FAJARDO on 02/15/19 0850 Patient Home Medication List Home Medication List Reviewed: Yes Past Kyhqupi-Xyvklk-Zdmdek Hx Patient Social History Marrital Status: Employed/Student: retired Alcohol Use: Denies Use Recreational Drug Use: No Smoking Status: Former Smoker Former Smoker, Quit: Feb 26, 1988 2nd Hand Smoke Exposure: No Recent Foreign Travel: No Contact w/other who traveled: No Recent Hopitalizations: No Recent Infectious Disease Expo: No Seasonal Allergies Seasonal Allergies: No Surgeries Yes (RENAL STENTS, LISA FILTER) Abdominal, Orthopedic, Renal, Vascular Surgery Respiratory No Cardiovascular Yes (renal artery stenosis status post stenting) Deep Vein Thrombosis, High Cholesterol, Hypertension, Peripheral Vascular Neurological No Reproductive System Hx Reproductive Disorders: No Sexually Transmitted Disease: No Genitourinary Yes Benign Prostatic Hyperpl Gastrointestinal No Musculoskeletal Yes (Disc bulging at C5-C6) Arthritis Endocrine History of Endocrine Disorders: No HEENT History of HEENT Disorders: No Loss of Vision: Denies Hearing Impairment: Denies Cancer No Psychosocial History of Psychiatric Problem: No Integumentary History of Skin or Integumenta: No Blood Transfusions History of Blood Disorders: Yes (Factor V Leiden) Reviewed Nursing Assessment Reviewed/Agree w Nursing PMH: Yes Family Medical History Significant Family History: Hypertension, Stroke, Other Conditions/Hx (dementia) Family Hx: Family history: Hypertension 03 FATHER 03 MOTHER 09 SISTER History of - disorder 03 FATHER (PASSED FROM ALS LIKE SYMPTOMS, BLOOD CLOTTING DISORDER ) 03 MOTHER Hypercholesterolemia 09 SISTER Myocardial infarction 03 MOTHER Neoplasm 03 MOTHER Stroke 03 MOTHER, Onset:60 years & older Review of Systems Constitutional: No chills, No fever EENTM: No hoarseness, No throat pain Respiratory: No cough, No dyspnea on exertion, No short of breath Cardiovascular: chest pain, Hx of Intervention; No syncope Gastrointestinal: abdominal pain (RUQ); No constipation, No diarrhea, No loss of appetite; nausea Genitourinary: no symptoms reported Musculoskeletal: back pain, other (pain in right shoulder/upper back/scapula) Skin: no symptoms reported Psychiatric/Neurological: Denies Depressed, Denies Weakness All Other Systems Reviewed Negative Unless Noted: Yes Physical Exam Vital Signs Vital Signs - First Documented 02/13/19 07:13 Temp 97.5 Pulse 53 Resp 20 B/P (MAP) 226/114 (151) Pulse Ox 96 O2 Delivery Room Air Capillary Refill : Less Than 3 Seconds Height, Weight, BMI Height: 5'8.00" Weight: 203lbs. 4.0oz. 92.249295gi; 31.3 BMI Method:Stated General Appearance: No Apparent Distress, WD/WN Eyes: Bilateral Eye Normal Inspection, Bilateral Eye PERRL, Bilateral Eye EOMI HEENT: PERRL/EOMI, Normal ENT Inspection, Pharynx Normal Neck: Full Range of Motion, Non Tender, Supple Respiratory: Chest Non Tender, Lungs Clear, Normal Breath Sounds, No Accessory Muscle Use, No Respiratory Distress Cardiovascular: Regular Rate, Rhythm, No Edema, No Murmur, Normal Peripheral Pulses Gastrointestinal: Normal Bowel Sounds, Soft, Tenderness (ruq) Rectal: Deferred Back: Normal Inspection, No CVA Tenderness, No Vertebral Tenderness Extremity: Normal Capillary Refill, Normal Inspection, Normal Range of Motion, Non Tender, No Calf Tenderness, No Pedal Edema Neurologic/Psychiatric: Alert, Oriented x3, No Motor/Sensory Deficits, Normal Mood/Affect, nurse practitioner II-XII Norm as Tested Skin: Normal Color, Warm/Dry Lymphatic: No Adenopathy Assessment/Plan Assessment and Plan CHEST PAIN RIGHT UPPER QUADRANT ABDOMINAL PAIN CHOLELITHIASIS NAUSEA HYPERTENSIVE EMERGENCY HYPERLIPIDEMIA FACTOR V LEIDEN DEFICIENCY CHRONIC ANTICOAGULATION CHEST PAIN - APPEARS TO BE NON-CARDIAC IN NATURE - LIKELY DUE TO GALLBLADDER DISEASE - CHOLELITHIASIS SEEN ON CT ANGIO OF CHEST. RIGHT UPPER QUADRANT ABDOMINAL PAIN - CHOLELITHIASIS - DISCUSSED WITH PATIENT - HE IS GOING TO LET ME KNOW WHICH SURGEON HE WOULD LIKE TO DO CONSULTATION FOR POSSIBLE SURGICAL INTERVENTION WHILE IN THE HOSPITAL. NAUSEA - DUE TO GALLBLADDER DISEASE - CONTINUE WITH PRN ZOFRAN HYPERTENSIVE EMERGENCY - DEFER TO CARDIOLOGY HYPERLIPIDEMIA - RESUME HOME REGIMEN FACTOR V LEIDEN DEFICIENCY - LOVENOX INJECTIONS CHRONIC ANTICOAGULATION - HOLD COUMADIN IN ANTICIPATION OF POSSIBLE INTERVENTION/SURGERY Admission Diagnosis CHEST PAIN RIGHT UPPER QUADRANT ABDOMINAL PAIN CHOLELITHIASIS NAUSEA HYPERTENSIVE EMERGENCY HYPERLIPIDEMIA FACTOR V LEIDEN DEFICIENCY CHRONIC ANTICOAGULATION Admission Status: Observation Clinical Quality Measures AMI/AHF: ASA po Prior to arrival: No DVT/VTE Risk/Contraindication: Risk Factor Score Per Nursin RFS Level Per Nursing on Admit: 4+=Very High ALYCE FAJARDO MD February 14, 2019 08:28
[2019-02-14] MEDS ORDERED: amLODIPine 5 MG (NORVASC) TAB PO SCH (09:00)
[2019-02-14] MEDS ORDERED: lisINopril 20 MG (PRINIVIL) TABLET PO SCH (09:00)
[2019-02-14] MEDS ORDERED: CLOPIDOGREL 75 MG (PLAVIX) TABLET PO SCH (09:00)
--- NOTE | 2019-02-14 10:45 | Progress Note-Cardiology ---
Cardiology SOAP Progress Note Subjective: Sitting up in bed. States he had another episode of right sided, sharp stabbing chest pain during the night for which he received morphine IV. He states it did improved the chest discomfort. He continues to c/o right shoulder blade discomfort which is worse with position changes. He reports some occ nausea. He denies dyspnea or palpitations. Objective: I&O/Vital Signs 02/14/19 02/14/19 02/14/19 02/14/19 04:00 04:00 07:00 07:00 Pulse 64 59 59 Resp 19 16 B/P (MAP) 181/89 (119) 185/79 (114) Pulse Ox 96 98 O2 Delivery Room Air Room Air Room Air 02/14/19 02/14/19 02/14/19 02/14/19 07:55 07:58 08:00 08:29 Temp 97.6 Pulse 70 Resp 16 B/P (MAP) 166/83 (110) Pulse Ox 96 O2 Delivery Room Air Room Air Room Air 02/14/19 02/14/19 02/14/19 09:00 11:22 11:43 Temp 97.4 Pulse 68 Resp 9 B/P (MAP) 141/72 (95) Pulse Ox 96 O2 Delivery Room Air Room Air 02/14/19 00:00 Intake Total 840 ml Balance 840 ml Weight (Pounds): 203 Weight (Ounces): 4.0 Weight (Calculated Kilograms): 92.716496 Constitutional: AAO x 3, well-developed, well-nourished Respiratory: No accessory muscle use, No respiratory distress; chest expansion is symmetric, chest is bilaterally symmetric, lungs clear to auscultation Cardiovascular: regular rate-rhythm; No JVD; S1 and S2 Gastrointestional: No tender; soft, round, audible bowel sounds Extremities: no lower extremity edema bilateral Neurologic/Psychiatric: grossly intact, power is 5/5 both on sides Skin: No rash, No ulcerations Results/Procedures: Labs Laboratory Tests 02/13/19 19:00: Troponin I < 0.028 02/14/19 03:20: White Blood Count 10.8, Red Blood Count 5.13, Hemoglobin 14.7, Hematocrit 42, Mean Corpuscular Volume 83, Mean Corpuscular Hemoglobin 29, Mean Corpuscular Hemoglobin Concent 35, Red Cell Distribution Width 14.0, Platelet Count 214, Mean Platelet Volume 10.7H, Neutrophils (%) (Auto) 74, Lymphocytes (%) (Auto) 17, Monocytes (%) (Auto) 8, Eosinophils (%) (Auto) 1, Basophils (%) (Auto) 1, Neutrophils # (Auto) 8.0H, Lymphocytes # (Auto) 1.8, Monocytes # (Auto) 0.9, Eosinophils # (Auto) 0.1, Basophils # (Auto) 0.1, Prothrombin Time 24.6H, INR Comment 2.1H, Sodium Level 141, Potassium Level 3.9, Chloride Level 109H, Carbon Dioxide Level 20L, Anion Gap 12, Blood Urea Nitrogen 12, Creatinine 1.10, Estimat Glomerular Filtration Rate > 60, BUN/Creatinine Ratio 11, Glucose Level 134H, Calcium Level 9.1, Triglycerides Level 427H, Cholesterol Level 207H, LDL Cholesterol Direct 95, VLDL Cholesterol , HDL Cholesterol 26L A/P: Assessment: R-sided chest pain and shoulder pain of undetermined etiology Uncontrolled hypertension Cholelithiasis seen on CT chest of 02/13/19. Consider referred gallbladder pain Pulm nodule (7mm) on CT chest of 02/13/19. F/u with Dr Fajardo Reported intolerance to Doxazosin secondary to fatigue and dizziness. Reported intolerance to Norvasc d/t LE swelling. H/o L renal artery stenosis treated with stenting of L main and L accessory renal arteries in 2001 at [facility] in , patent and with only mild stenosis on CT angio of abdomen on 11/23/12. No KASSANDRA on renal u/s of 05/20/18 (renal cysts were found for which f/u is advised with pcp) Factor V Leiden mutation, treated with chronic warfarin therapy that is managed by Dr Fajardo S/p [place] filter in [address] Benjamin at [place], [place] Echo of March 2018 showed LVEF 60-65%. Grade 1 diastolic dysfunction. PASP 25- 30mmHg. Mild TR and MR. H/o R carotid artery stenosis (mod on u/s of and mild on CTA of 08/17/13) MPI of March 2018 showed no evidence of significant ischemia or infarction. LVEF 67% Minimal carotid plaque without evidence of hemodynamic significance in March 2018 Plan: Chest discomfort of undetermined etiology with no evidence of ACS Dr. Benjamin consulted d/t cholelithiasis Hypertension has improved with addition of Hydralazine Asymptomatic bradycardia precludes us from increasing his BB dose Not suitable candidate for clonidine either d/t risk of worsening bradycardia Monitor lab closely Physician Assessment Physician Assessment Continuing R lateral chest pain and R shoulder pain. No palp or shortness of breath or recurrence of syncope Lungs: clear Cor: reg Ext: no c/c/e A&R * As documented in our note above that I updated (italics) and as noted below * Consider surg consult for eval for gallbladder disease and referred pain from that * Increase lisinopril; continue hydralazine * Monitor labs Clinical Quality Measures AMI/AHF: ASA po Prior to arrival: No MELCHOR ZAVALA DISH CLOTH INSPECTOR February 14, 2019 10:45 SUNNY TOMLINSON MD FACP FAC CCDS February 14, 2019 13:17
[2019-02-14] MEDS ORDERED: PANTOPRAZOLE 40 MG (PROTONIX) VIAL IV NR (11:05)
[2019-02-14] MEDS ORDERED: lisINopril 20 MG (PRINIVIL) TABLET PO NR (13:30)
--- NOTE | 2019-02-14 15:49 | NUR ---
PT'S BP CONTINUES TO BE ELEVATED AFTER ADDITIONAL LISINOPRIL DOSE. DR TOMLINSON NOTIFIED, NEW ORDERS RECEIVED.
[2019-02-14] MEDS ORDERED: CARVEDILOL 12.5 MG (COREG) TABLET PO NR (16:00)
[2019-02-14] MEDS: doxAzosin 4 MG (CARDURA) TAB PO SCH ×2 (16:22→22:53)
--- NOTE | 2019-02-14 19:30 | CONSULTATION REPORT ---
DATE OF SERVICE: 02/14/2019 DATE OF ADMISSION: 02/22/2019. ATTENDING PRIMARY CARE PHYSICIAN: Mahnaz Fajardo MD. HISTORY OF PRESENT ILLNESS: The patient is a 73-year-old male, who presented to the Emergency Department with chest pain. The pain was in the lower aspect of the chest with radiation towards the right chest as well as towards the back. He reported that this was an aching type of sensation. He does have a history of coronary artery disease as well as history of lower extremity DVTs and factor V Leiden. He was admitted to the ICU and underwent a cardiac workup which was negative for acute coronary syndrome. He was found to be significantly hypertensive and this has been controlled with hydralazine as well as previous antihypertensive medications. A CT scan was also performed, which did show gallstones. Upon further questioning, he does report that he has had some pain in the right upper abdominal quadrant after eating meals as well as intermittent episodes of nausea; however, no vomiting. He is currently on Coumadin for his factor V Leiden as well as previous DVTs. He is also status post IVC filter placement. He was also found to have slightly elevated total bilirubin as well as liver function enzymes consistent with a previous choledocholithiasis as well as chronic calculous cholecystitis. PAST MEDICAL HISTORY: Hypertension, coronary artery disease, history of DVT, hypercholesterolemia, peripheral vascular disease including a left renal artery stenosis, BPH, degenerative joint disease, and hearing loss. PAST SURGICAL HISTORY: 1. Left renal artery, main renal artery and accessory artery stenting. 2. Orthopedic procedures. 3. IVC filter placement. ALLERGIES: ASPIRIN. MEDICATIONS: Carvedilol 12.5 mg b.i.d., lisinopril 40 mg b.i.d., magnesium oxide 250 mg b.i.d., tamsulosin 0.4 mg b.i.d., Coumadin 3 mg daily for 2 days and alternate 1.5 mg daily, and then repeat. Vitamin D daily. SOCIAL HISTORY: Previous smoker, quit in , negative alcohol. FAMILY HISTORY: Father, mother, sister with hypertension. Sister with myocardial infarction. VITAL SIGNS: Temperature is 97.6, blood pressure 160/90, pulse 62, respirations 14, pulse ox 97% on room air. REVIEW OF SYSTEMS: This is well-developed and well-nourished male, currently in no acute distress. He is not experiencing any shortness of breath or difficulty breathing. No chest pain, palpitations or diaphoresis. Intermittent episodes of pain in the right upper abdominal quadrant as well as chest pain and ache. Mild gastroesophageal reflux disease. No significant episodes of diarrhea or constipation, no red blood per rectum, no dark tarry stools. No fever or chills, no recent inadvertent weight loss. All other review of systems is negative. PHYSICAL EXAMINATION: CHEST: Clear. Good breath sounds bilaterally. HEART: Regular, no murmurs. HEENT: No scleral icterus. NECK: No cervical lymphadenopathy. EXTREMITIES: No lower extremity edema. Negative Homans sign. ABDOMEN: Soft, nondistended. There is pain in the right upper abdominal quadrant upon deep palpation. SKIN: Warm, dry. LABORATORY DATA: WBC is 10.8, hemoglobin 14.7, hematocrit 42, and platelets 214. BUN is 12, creatinine 1.10. His last total bilirubin is 0.4; however, on previous lab draw, he did have an elevated total bilirubin greater than 1.4. Alkaline phosphatase is 122. ASSESSMENT AND PLAN: A 73-year-old male with chest pain as well as uncontrolled hypertension. Cardiac evaluation was negative for acute coronary syndrome and his blood pressure has been under control with hydralazine. Cardiology has been consulted in on the case. It appears that he does have symptomatic chronic calculous cholecystitis as well as possible previous episode of choledocholithiasis; however, this has resolved. He is on Coumadin with an elevated INR of 2.2 for his history of factor V Leiden as well as DVTs in the past. We will allow for natural drift in his INR and hold Coumadin, allow for clear liquids and continue to monitor his laboratory work including CBC as well as liver function enzymes. If he continues to improve and his INR is within less than approximately 1.7 to 1.9, we will proceed with a laparoscopic cholecystectomy on this admission. Now, we will continue with all necessary DVT prophylaxis as well as with early ambulation, calf SCDs as well as Lovenox injections. Job ID: [id number] DocumentID: [id number] Dictated Date: 02/14/2019 18:00:58 Vacuum Forming Machine Operator Date: 02/14/2019 19:29:59 Dictated By: MARTY ALCALA MD
[2019-02-14] MEDS: ATORVASTATIN 40 MG (LIPITOR) TABLET PO SCH (21:04)
[2019-02-14] MEDS: TAMSULOSIN 0.4 MG (FLOMAX) CAP PO SCH (21:04)
[2019-02-15] VITALS (13 sets, daily range): BP systolic 115–163; BP diastolic 58–88
[2019-02-15 03:55] LABS: ALANINE AMINOTRANSFERASE 17 U/L (0-55); ALBUMIN 3.5 GM/DL (3.2-4.5); ALKALINE PHOSPHATASE 92 U/L (40-136); BILIRUBIN,TOTAL 0.8 MG/DL (0.1-1.0); BUN/CREATININE RATIO 13; CALCIUM 8.7 MG/DL (8.5-10.1); CARBON DIOXIDE 20 MMOL/L (21-32); CHLORIDE 109 MMOL/L (98-107); CREATININE SERUM 1.17 MG/DL (0.60-1.30); GFR ESTIMATED > 60; GLUCOSE 114 MG/DL (70-105); POTASSIUM 3.7 MMOL/L (3.6-5.0); SODIUM 140 MMOL/L (135-145); TOTAL PROTEIN 6.1 GM/DL (6.4-8.2)
[2019-02-15] MEDS: doxAzosin 4 MG (CARDURA) TAB PO SCH ×3 (06:31→20:59)
[2019-02-15] MEDS: hydrALAZINE (APRESOLINE) 25 MG TAB PO SCH ×3 (06:31→20:59)
[2019-02-15] MEDS: CLOPIDOGREL 75 MG (PLAVIX) TABLET PO SCH (08:27)
[2019-02-15] MEDS: PANTOPRAZOLE 40 MG (PROTONIX) TAB PO SCH (08:27)
[2019-02-15] MEDS: CARVEDILOL 12.5 MG (COREG) TABLET PO SCH ×2 (08:27→20:59)
--- NOTE | 2019-02-15 08:38 | Progress Note ---
Subjective Date Seen by a Provider: February 14, 2019 Time Seen by a Provider: 08:10 Subjective/Events-last exam PT REPORTS THAT HIS CHEST PAIN HAS IMPROVED HE STILL HAS RIGHT SHOULDER/UPPER BACK PAIN - HE ALSO REPORTS SOME MILD NAUSEA Review of Systems General: Fatigue HEENT: No Head Aches Pulmonary: No Dyspnea, No Cough Cardiovascular: No: Chest Pain Gastrointestinal: Nausea, Abdominal Pain Neurological: Weakness; No: Confusion Objective Exam Last Set of Vital Signs Vital Signs Date Time Temp Pulse Resp B/P (MAP) Pulse Ox O2 Delivery O2 Flow Rate FiO2 02/15/19 08:00 73 126/62 (83) 95 Room Air 02/15/19 00:00 98.8 20 Capillary Refill : Less Than 3 Seconds I&O Intake and Output 02/15/19 00:00 Intake Total 1180 ml Balance 1180 ml Intake Oral 1180 ml # Voids 12 # Bowel Movements 1 General: Alert, Oriented X3, Cooperative, Mild Distress HEENT: Atraumatic, PERRLA Neck: Supple Lungs: Clear to Auscultation Heart: Regular Rate Abdomen: Normal Bowel Sounds, Soft, Other (TTP RIGHT UPPER ABDOMEN) Skin: No Rashes Psych/Mental Status: Mental Status NL, Mood NL Results Lab Laboratory Tests 02/15/19 03:23: Prothrombin Time 24.0H, INR Comment 2.0H, Sodium Level 140, Potassium Level 3.7, Chloride Level 109H, Carbon Dioxide Level 20L, Anion Gap 11, Blood Urea Nitrogen 15, Creatinine 1.17, Estimat Glomerular Filtration Rate > 60, BUN/Creatinine Ratio 13, Glucose Level 114H, Calcium Level 8.7, Corrected Calcium 9.1, Total Bilirubin 0.8, Aspartate Amino Transf (AST/SGOT) 13, Alanine Aminotransferase (ALT/SGPT) 17, Alkaline Phosphatase 92, Total Protein 6.1L, Albumin 3.5 Assessment/Plan Assessment/Plan Assess & Plan/Chief Complaint CHEST PAIN RIGHT UPPER QUADRANT ABDOMINAL PAIN CHOLELITHIASIS NAUSEA HYPERTENSIVE EMERGENCY HYPERLIPIDEMIA FACTOR V LEIDEN DEFICIENCY CHRONIC ANTICOAGULATION CHEST PAIN - APPEARS TO BE NON-CARDIAC IN NATURE - LIKELY DUE TO GALLBLADDER DISEASE - CHOLELITHIASIS SEEN ON CT ANGIO OF CHEST. - PT ALSO HAS A FEW SMALL NODULES WILL DO FOLLOW UP CT SCAN IN A FEW MONTHS. RIGHT UPPER QUADRANT ABDOMINAL PAIN - CHOLELITHIASIS - DISCUSSED WITH PATIENT - HE WOULD LIKE TO HAVE DR. ALCALA EVALUATE HIM FOR SURGICAL INTERVENTION - DR. ALCALA TO SEE PT LATER TODAY. - LIVER NODULE - UNABLE TO DETERMINE IF THIS IS A HEMANGIOMA- WHEN IN SURGERY DR. ALCALA WILL HOPEFULLY BE ABLE TO BETTER CHARACTERIZE THIS LESION. NAUSEA - DUE TO GALLBLADDER DISEASE - CONTINUE WITH PRN ZOFRAN HYPERTENSIVE EMERGENCY - DEFER TO CARDIOLOGY HYPERLIPIDEMIA - RESUME HOME REGIMEN FACTOR V LEIDEN DEFICIENCY - LOVENOX INJECTIONS CHRONIC ANTICOAGULATION - HOLD COUMADIN IN ANTICIPATION OF POSSIBLE INTE RVENTION/SURGERY Clinical Quality Measures AMI/AHF: ASA po Prior to arrival: No DVT/VTE Risk/Contraindication: Risk Factor Score Per Nursin RFS Level Per Nursing on Admit: 4+=Very High ALYCE CASTANEDA MD February 15, 2019 08:38
[2019-02-15] MEDS ORDERED: ENOXAPARIN 30 MG/0.3 ML (LOVENOX) SYR SC SCH (08:45)
[2019-02-15] MEDS ORDERED: WARF3TAB56 PO (08:50)
[2019-02-15] MEDS ORDERED: CLOP75TA28 PO (08:50)
[2019-02-15] MEDS ORDERED: ENOX40DI8 SC (08:50)
[2019-02-15] MEDS ORDERED: ATOR40TA PO (08:50)
[2019-02-15] MEDS ORDERED: DOXA4TAB2 PO (08:50)
[2019-02-15] MEDS ORDERED: HYDR-3923 PO (08:50)
--- NOTE | 2019-02-15 08:53 | Discharge Inst-Complex ---
PDI Med Rec & Follow Up Appt. New Medications: Atorvastatin Calcium (Lipitor) 40 Mg Tablet 40 MG PO HS, #30 TAB 11 Refills Clopidogrel Bisulfate (Clopidogrel) 75 Mg Tablet 75 MG PO DAILY, #30 TAB 11 Refills HOLD UNTIL AFTER GALLBLADDER SURGERY Doxazosin Mesylate (Doxazosin Mesylate) 4 Mg Tablet 4 MG PO Q8HR, #90 TAB 11 Refills Enoxaparin Sodium (Enoxaparin Sodium) 40 Mg/0.4 Ml Syringe 40 MG SC Q24H, #6 SYRINGE ONE DOSE DAILY - HOSPITAL GAVE WEDNESDAY DOSE, HOLD ON WEDNESDAY, THEN TAKE DAILY POST OPERATIVELY FOR BRIDGING COUMADIN Hydralazine HCl (Hydralazine HCl) 25 Mg Tablet 50 MG PO Q8HR, #90 TAB 11 Refills Changed Medications: Warfarin Sodium (Warfarin Sodium) 3 Mg Tablet 1 TAB PO UD, #90 TAB (Changed from: TAKES 3MG FOR 2 DAYS THEN TAKE 1.5MG FOR ONE DAY THEN REPEAT.) HOLD COUMADIN UNTIL AFTER GALLBLADDER SURGERY THEN TAKE 3MG FOR 2 DAYS THEN TAKE 1.5MG FOR ONE DAY THEN REPEAT. Continued Medications: Acetaminophen (Tylenol Arthritis) 650 Mg Tablet.er 1300 MG PO BID PRN for PAIN-MILD, TAB Carvedilol (Carvedilol) 12.5 Mg Tablet 12.5 MG PO BID, TAB Cholecalciferol (Vitamin D3) (Vitamin D3) 5,000 Unit Capsule 5000 UNIT PO DAILY, CAP Lisinopril (Lisinopril) 40 Mg Tablet 20 MG PO BID, TAB TAKES 1/2 (40MG) TABLET Magnesium Oxide (Magnesium) 250 Mg Tablet 250 MG PO BID, TAB Tamsulosin HCl (Flomax) 0.4 Mg Cap 0.4 MG PO BID, CAP Ubidecarenone/Vit E Acetate (Co Q-10 100 mg Softgel) 1 Each Capsule 1 CAP PO DAILY, CAP Prescription: Transmitted to Pharmacy Patient Instructions: DO NOT TAKE COUMADIN UNTIL AFTER SURGERY - WE ARE GOING TO BRIDGE YOU WITH LOVENOX - YOU WILL GET A DOSE OF LOVENOX IN THE HOSPITAL PRIOR TO DISCHARGE, THEN DO NOT TAKE THE DOSE ON WEDNESDAY PRIOR TO SURGERY - DR. ALCALA IS WORKINGOUT THE PLAN FOR WHEN YOUR SURGERY WILL TAKE PLACE ON WEDNESDAY. Activity, Diet and PDI Resume Normal Activity: Yes Discharge Diet: Other Diet (LIQUID DIET UNTIL AFTER GALLBLADDER SURGERY - DO NOT EAT OR DRINK (OTHER THAN SIPS OF WATER WITH MEDICATION) 6 HOURS PRIOR TO PLANNED SURGERY) Drink 6-8 Glasses of Fluid/Day: Yes Driving Instructions: You May Drive Symptoms to Reoprt to DrMarisela: Appetite Changes, Pain Increased, Fever Over 101 Degrees F, Pain/Pressure in Chest, Dizziness/Fainting, Nausea/Vomiting For Problems or Questions: Contact Your Physician, Go to Emergency Room ALYCE CASTANEDA MD February 15, 2019 08:53
--- NOTE | 2019-02-15 08:54 | Discharge Summary ---
Diagnosis/Chief Complaint Date of Admission February 13, 2019 at 10:28 Date of Discharge Discharge Date: February 15, 2019 Discharge Time: 1030 Admission Diagnosis Admission Diagnosis CHEST PAIN RIGHT UPPER QUADRANT ABDOMINAL PAIN CHOLELITHIASIS NAUSEA HYPERTENSIVE EMERGENCY HYPERLIPIDEMIA FACTOR V LEIDEN DEFICIENCY CHRONIC ANTICOAGULATION Discharge Diagnosis CHEST PAIN RIGHT UPPER QUADRANT ABDOMINAL PAIN CHOLELITHIASIS NAUSEA HYPERTENSIVE EMERGENCY HYPERLIPIDEMIA FACTOR V LEIDEN DEFICIENCY CHRONIC ANTICOAGULATION Reason Hospital Visit HE REPORTS THAT HE STARTED TO HAVE CHEST DISCOMFORT GOING UP TO HIS SHOULDER/UPPER BACK ON THE RIGHT SIDE. HE STATES THAT HE FELT OFF ALL DAY ON THE DAY OF ADMISSION FEELING LIKE HE WAS "TRAILING MYSELF" ALL DAY. HE REPORTS THAT HE FINALLY TOOK HIS BLOOD PRESSURE WITH READINGS OF 240'S/100'S. HE THEN PRESENTED TO THE EMERGENCY DEPARTMENT WHERE HIS BLOOD PRESSURE WAS STILL QUITE ELEVATED. THE EMERGENCY DEPARTMENT GAVE HIM NITROGLYCERINE - HIS BLOOD PRESSURE PRECIPITOUSLY DROPPED TO THE 140'S/80'S AND HIS CHEST PAIN RESOLVED. HE DOES REPORT SOME NAUSEA WELL FOR SEVERAL DAYS. Discharge Summary Consultations DR. TOMLINSON - CARDIOLOGY DR. ALCALA - SURGERY Discharge Physical Examination Allergies: Coded Allergies: aspirin (Unverified Allergy, Mild, HIVES, 12/23/09) Vitals & I&Os Vital Signs Date Time Temp Pulse Resp B/P (MAP) Pulse Ox O2 Delivery O2 Flow Rate FiO2 02/15/19 15:37 98.4 65 20 156/72 (100) 95 Room Air General Appearance: Alert, Oriented X3, Cooperative, No Acute Distress HEENT: Atraumatic, PERRLA, Mucous Memb Moist/[place] Respiratory: Clear to Auscultation, Normal Air Movement Cardiovascular: Regular Rate Abdominal: Normal Bowel Sounds, Soft, Other (TTP RUQ) Extremities: No Clubbing, No Cyanosis, No Tenderness/Swelling Skin: No Rashes Neuro: Normal Gait, Strength at 5/5 X4 Ext, Cranial Nerves 3-12 NL Psych/Mental Status: Mental Status NL, Mood NL Hospital Course Was the Problem List Reviewed?: Yes CHEST PAIN RIGHT UPPER QUADRANT ABDOMINAL PAIN CHOLELITHIASIS NAUSEA HYPERTENSIVE EMERGENCY HYPERLIPIDEMIA FACTOR V LEIDEN DEFICIENCY CHRONIC ANTICOAGULATION CHEST PAIN - APPEARS TO BE NON-CARDIAC IN NATURE - LIKELY DUE TO GALLBLADDER DISEASE - CHOLELITHIASIS SEEN ON CT ANGIO OF CHEST. - PT ALSO HAS A FEW SMALL NODULES WILL DO FOLLOW UP CT SCAN IN A FEW MONTHS. RIGHT UPPER QUADRANT ABDOMINAL PAIN - CHOLELITHIASIS - DISCUSSED WITH PATIENT - HE WOULD LIKE TO HAVE DR. ALCALA EVALUATE HIM FOR SURGICAL INTERVENTION - DR. ALCALA TO SEE PT LATER TODAY. - LIVER NODULE - UNABLE TO DETERMINE IF THIS IS A HEMANGIOMA- WHEN IN SURGERY DR. ALCALA WILL HOPEFULLY BE ABLE TO BETTER CHARACTERIZE THIS LESION. NAUSEA - DUE TO GALLBLADDER DISEASE - CONTINUE WITH PRN ZOFRAN HYPERTENSIVE EMERGENCY - DEFER TO CARDIOLOGY HYPERLIPIDEMIA - RESUME HOME REGIMEN FACTOR V LEIDEN DEFICIENCY - LOVENOX INJECTIONS CHRONIC ANTICOAGULATION - HOLD COUMADIN IN ANTICIPATION OF POSSIBLE INTERVENTION/SURGERY ADDENDUM - PT WAS FEELING TOO ILL TO GO HOME ONCE HE WAS UP TO BEDSIDE THIS MID-MORNING- THE DISCHARGE WAS PUT OFF UNTIL WEDNESDAY AFTER HIS SURGERY . DR. ALCALA WILL TAKE OVER CARE OF THE PATIENT SINCE THIS HAS BECOME A PURELY SURGICAL CASE. PLAN IS FOR BRIDING OF COUMADIN WITH LOVENOX FOR 7 DAYS POST-OPERATIVELY Pending Labs Discharge Condition at discharge IMPROVING Instructions to patient/family Please see electronic discharge instructions given to patient. Discharge Medications Reviewed and agree with Discharge Medication list on patient's Discharge Instruction sheet Clinical Quality Measures AMI/AHF: ASA po Prior to arrival: No DVT/VTE Risk/Contraindication: Risk Factor Score Per Nursin RFS Level Per Nursing on Admit: 4+=Very High ALYCE CASTANEDA MD February 15, 2019 08:54
[2019-02-15] MEDS ORDERED: lisINopril 20 MG (PRINIVIL) TABLET PO SCH (09:00)
[2019-02-15] MEDS ORDERED: lisINopril 40 MG (PRINIVIL) TABLET PO SCH (09:00)
--- NOTE | 2019-02-15 09:44 | Progress Note-Cardiology ---
Cardiology SOAP Progress Note Subjective: No cp today No palp or syncope or shortness of breath Objective: I&O/Vital Signs 02/14/19 02/14/19 02/15/19 02/15/19 22:00 23:00 00:00 00:00 Temp 98.8 Pulse 64 61 53 Resp 20 B/P (MAP) 149/83 (105) 137/81 (99) 137/81 (99) Pulse Ox 95 97 O2 Delivery Room Air Room Air Room Air Room Air 02/15/19 02/15/19 02/15/19 02/15/19 01:00 01:00 02:00 03:00 Pulse 58 57 60 61 B/P (MAP) 142/69 (93) 133/65 (87) 115/58 (77) Pulse Ox 97 96 96 O2 Delivery Room Air Room Air Room Air 02/15/19 02/15/19 02/15/19 02/15/19 04:00 04:00 05:00 06:00 Pulse 64 61 63 B/P (MAP) 132/71 (91) 128/65 (86) 132/65 (87) Pulse Ox 95 98 95 O2 Delivery Room Air Room Air Room Air Room Air 02/15/19 02/15/19 02/15/19 02/15/19 07:00 08:00 08:05 09:34 Pulse 70 73 B/P (MAP) 126/62 (83) Pulse Ox 95 O2 Delivery Room Air Room Air Room Air 02/15/19 00:00 Intake Total 740 ml Balance 740 ml Weight (Pounds): 201 Weight (Ounces): 12.8 Weight (Calculated Kilograms): 91.012032 Constitutional: AAO x 3, well-developed, well-nourished Respiratory: No accessory muscle use, No respiratory distress; chest expansion is symmetric, chest is bilaterally symmetric, lungs clear to auscultation Cardiovascular: regular rate-rhythm; No JVD; S1 and S2 Gastrointestional: No tender; soft, round, audible bowel sounds Extremities: no lower extremity edema bilateral Neurologic/Psychiatric: grossly intact, power is 5/5 both on sides Skin: No rash, No ulcerations Results/Procedures: Labs Laboratory Tests 02/15/19 03:23: Prothrombin Time 24.0H, INR Comment 2.0H, Sodium Level 140, Potassium Level 3.7, Chloride Level 109H, Carbon Dioxide Level 20L, Anion Gap 11, Blood Urea Nitrogen 15, Creatinine 1.17, Estimat Glomerular Filtration Rate > 60, BUN/Creatinine Ratio 13, Glucose Level 114H, Calcium Level 8.7, Corrected Calcium 9.1, Total Bilirubin 0.8, Aspartate Amino Transf (AST/SGOT) 13, Alanine Aminotransferase (ALT/SGPT) 17, Alkaline Phosphatase 92, Total Protein 6.1L, Albumin 3.5 A/P: Assessment: R-sided chest pain and shoulder pain, likely to be referred pain from chronic, calculous cholecystitis Uncontrolled hypertension, now improved Cholelithiasis seen on CT chest of 02/13/19. Consider referred gallbladder pain Pulm nodule (7mm) on CT chest of 02/13/19. F/u with Dr Fajardo Reported intolerance to Doxazosin secondary to fatigue and dizziness. Reported intolerance to Norvasc d/t LE swelling. H/o L renal artery stenosis treated with stenting of L main and L accessory renal arteries in 2001 at [facility] in , patent and with only mild stenosis on CT angio of abdomen on 11/23/12. No KASSANDRA on renal u/s of 05/20/18 (renal cysts were found for which f/u is advised with pcp) Factor V Leiden mutation, treated with chronic warfarin therapy that is managed by Dr Fajardo S/p [place] filter [place] [address] Benjamin at [place], [place] Echo of March 2018 showed LVEF 60-65%. Grade 1 diastolic dysfunction. PASP 25- 30mmHg. Mild TR and MR. H/o R carotid artery stenosis (mod on u/s of and mild on CTA of 08/17/13) MPI of March 2018 showed no evidence of significant ischemia or infarction. LVEF 67% Minimal carotid plaque without evidence of hemodynamic significance in March 2018 Plan: * Awaiting lap piper after being seen by Dr Benjamin * Hold warfarin until after surgery * Continue current hypertensive regimen, but will probably would need to be reduced after piper, because htn is likely to be at least partially due to pain from gallbladder * I discussed his case with Dr Fajardo this am * I answered his CV-related questions Clinical Quality Measures AMI/AHF: ASA po Prior to arrival: SUNNY Navarro MD FACP FAC CCDS February 15, 2019 09:44
[2019-02-15] MEDS: HYDROcodone/APAP 7.5 MG/325 MG (LORTAB, LORCET PLUS) TABLET PO PRN (10:16)
--- NOTE | 2019-02-15 10:19 | NUR ---
0945 DR CASTANEDA CALLED NEW ORDERS RECEIVED TO D/C THE DISCHARGE, START NS AT 100ML/HR TRANSFER TO 4TH FLOOR.
[2019-02-15] MEDS ORDERED: NS 1000 ML IV BAG IV SCH (10:30)
--- NOTE | 2019-02-15 11:03 | NUR ---
1048 DR ALCALA CALLED NEW ORDERS RECEIVED. SEE ORDER HX.
--- NOTE | 2019-02-15 11:03 | NUR ---
1055 PT TO ROOM 422 VIA W/C ACCOMPANIED BY THIS RN, ALL PERSONAL ITEMS WITH PT. REPORT TO SUDEEP HOOVER.
[2019-02-15] MEDS: NS IV 1000 ML 1,000 ML IV SCH ×2 (14:26→21:03)
--- NOTE | 2019-02-15 17:11 | Progress Note (SOAP) ---
Subjective Date Seen by a Provider: February 15, 2019 Time Seen by a Provider: 17:00 Subjective/Events-last exam doing ok. did have symptomatic nausea and mild crampy RUQ abd pain upon eating breakfast this am. will proceed with continued pain control and monitory INR. plan for wednesday. Objective Exam Vital Signs Date Time Temp Pulse Resp B/P (MAP) Pulse Ox O2 Delivery O2 Flow Rate FiO2 02/15/19 15:37 98.4 65 20 156/72 (100) 95 Room Air 02/15/19 12:00 97.8 62 20 153/72 (99) 95 Room Air 02/15/19 10:58 97.4 70 20 162/85 (110) 96 Room Air 02/15/19 09:34 Room Air 02/15/19 08:05 Room Air 02/15/19 08:00 73 126/62 (83) 95 Room Air 02/15/19 07:00 70 02/15/19 06:00 63 132/65 (87) 95 Room Air 02/15/19 05:00 61 128/65 (86) 98 Room Air 02/15/19 04:00 Room Air 02/15/19 04:00 64 132/71 (91) 95 Room Air 02/15/19 03:00 61 115/58 (77) 96 Room Air 02/15/19 02:00 60 133/65 (87) 96 Room Air 02/15/19 01:00 57 02/15/19 01:00 58 142/69 (93) 97 Room Air 02/15/19 00:00 Room Air 02/15/19 00:00 98.8 53 20 137/81 (99) 97 Room Air 02/14/19 23:00 61 137/81 (99) 95 Room Air 02/14/19 22:00 64 149/83 (105) Room Air 02/14/19 21:00 57 177/84 (115) Room Air 02/14/19 21:00 Room Air 02/14/19 20:00 Room Air 02/14/19 20:00 58 160/79 (106) 97 Room Air 02/14/19 19:44 97.0 02/14/19 19:00 62 160/81 (107) 96 Room Air 02/14/19 19:00 64 02/14/19 18:00 64 18 169/80 (109) 97 Room Air I & O 02/15/19 07:00 Intake Total 1630 ml Balance 1630 ml Capillary Refill : Less Than 3 Seconds General Appearance: No Apparent Distress HEENT: PERRL/EOMI Neck: Full Range of Motion Respiratory: Chest Non Tender, Lungs Clear Cardiovascular: Regular Rate, Rhythm Gastrointestinal: normal bowel sounds, soft, tenderness Extremity: Normal Capillary Refill Neurologic/Psychiatric: Alert, Oriented x3 Lymphatic: No Adenopathy Results Lab Laboratory Tests 02/15/19 03:23: Prothrombin Time 24.0H, INR Comment 2.0H, Sodium Level 140, Potassium Level 3.7, Chloride Level 109H, Carbon Dioxide Level 20L, Anion Gap 11, Blood Urea Nitrogen 15, Creatinine 1.17, Estimat Glomerular Filtration Rate > 60, BUN/Creatinine Ratio 13, Glucose Level 114H, Calcium Level 8.7, Corrected Calcium 9.1, Total Bilirubin 0.8, Aspartate Amino Transf (AST/SGOT) 13, Alanine Aminotransferase (ALT/SGPT) 17, Alkaline Phosphatase 92, Total Protein 6.1L, Albumin 3.5 Assessment/Plan Assessment/Plan Assess & Plan/Chief Complaint sx chronic calculous cholecystitis. on coumadin for factor V lieden. will proceed with lovenox and drift of INR and lap piper this wednesday(0900) Clinical Quality Measures AMI/AHF: ASA po Prior to arrival: No DVT/VTE Risk/Contraindication: Risk Factor Score Per Nursin RFS Level Per Nursing on Admit: 4+=Very High MARTY ALCALA MD February 15, 2019 17:11
[2019-02-15] MEDS: ENOXAPARIN 40 MG/0.4 ML (LOVENOX) SYR SC SCH (20:58)
[2019-02-15] MEDS: ATORVASTATIN 40 MG (LIPITOR) TABLET PO SCH (20:59)
[2019-02-15] MEDS: TAMSULOSIN 0.4 MG (FLOMAX) CAP PO SCH (20:59)
[2019-02-15] MEDS: lisINopril 40 MG (PRINIVIL) TABLET PO SCH (20:59)
[2019-02-16 03:59] VITALS: BP 144/64
[2019-02-16] MEDS: hydrALAZINE (APRESOLINE) 25 MG TAB PO SCH ×3 (06:25→21:08)
[2019-02-16] MEDS: NS IV 1000 ML 1,000 ML IV SCH ×4 (06:25→23:16)
[2019-02-16] MEDS: doxAzosin 4 MG (CARDURA) TAB PO SCH ×3 (06:25→21:06)
[2019-02-16 08:00] VITALS: BP 126/56
[2019-02-16] MEDS: TAMSULOSIN 0.4 MG (FLOMAX) CAP PO SCH ×2 (09:30→21:07)
[2019-02-16] MEDS: CLOPIDOGREL 75 MG (PLAVIX) TABLET PO SCH (09:30)
[2019-02-16] MEDS: PANTOPRAZOLE 40 MG (PROTONIX) TAB PO SCH (09:30)
[2019-02-16] MEDS: CARVEDILOL 12.5 MG (COREG) TABLET PO SCH ×2 (09:31→21:07)
[2019-02-16] MEDS: lisINopril 40 MG (PRINIVIL) TABLET PO SCH ×2 (09:31→21:07)
--- NOTE | 2019-02-16 09:45 | Progress Note-Cardiology ---
Cardiology SOAP Progress Note Subjective: Sitting up in bed. States he feels better this morning. Continues to report c/o right shoulder discomfort when lying on his right side. No c/o CP, palpitations, syncope, dyspnea or near syncope. Objective: I&O/Vital Signs 02/16/19 02/16/19 03:59 08:00 Temp 98.6 98.1 Pulse 71 75 Resp 18 20 B/P (MAP) 144/64 (90) 126/56 (79) Pulse Ox 95 95 O2 Delivery Room Air Room Air 02/16/19 00:00 Intake Total 1480 ml Balance 1480 ml Weight (Pounds): 203 Weight (Ounces): 6.0 Weight (Calculated Kilograms): 92.033520 Constitutional: AAO x 3, well-developed, well-nourished Respiratory: No accessory muscle use, No respiratory distress; chest expansion is symmetric, chest is bilaterally symmetric, lungs clear to auscultation Cardiovascular: regular rate-rhythm; No JVD; S1 and S2 Gastrointestional: No tender; soft, round, audible bowel sounds Extremities: no lower extremity edema bilateral Neurologic/Psychiatric: grossly intact, power is 5/5 both on sides Skin: No rash, No ulcerations Results/Procedures: Labs Laboratory Tests 02/16/19 10:36: Prothrombin Time 21.9H, INR Comment 1.8H A/P: Assessment: R-sided chest pain and shoulder pain, likely to be referred pain from chronic, calculous cholecystitis Uncontrolled hypertension, now improved Cholelithiasis seen on CT chest of 02/13/19. Consider referred gallbladder pain Pulm nodule (7mm) on CT chest of 02/13/19. F/u with Dr Fajardo Reported intolerance to Doxazosin secondary to fatigue and dizziness. Reported intolerance to Norvasc d/t LE swelling. H/o L renal artery stenosis treated with stenting of L main and L accessory renal arteries in 2001 at [facility] in , patent and with only mild stenosis on CT angio of abdomen on 11/23/12. No KASSANDRA on renal u/s of 05/20/18 (renal cysts were found for which f/u is advised with pcp) Factor V Leiden mutation, treated with chronic warfarin therapy that is managed by Dr Fajardo S/p [place] filter in [address] Benjamin at [place], [place] Echo of March 2018 showed LVEF 60-65%. Grade 1 diastolic dysfunction. PASP 25- 30mmHg. Mild TR and MR. H/o R carotid artery stenosis (mod on u/s of and mild on CTA of 08/17/13) MPI of March 2018 showed no evidence of significant ischemia or infarction. LVEF 67% Minimal carotid plaque without evidence of hemodynamic significance in March 2018 Plan: * Awaiting lap piper by Dr Benjamin - possibly tomorrow * Hold warfarin until after surgery * Continue current hypertensive regimen, but will probably would need to be reduced after piper, because htn is likely to be at least partially due to pain from gallbladder * Monitor lab Physician Assessment Physician Assessment No cp or palp or syncope or shortness of breath Lungs: good bilat air entry Cor: reg Ext: no c/c/e A&R * As documented in our note above that I updated (italics) and as noted below * I discussed his case with Dr Fajardo yesterday * Continue current CV regimen * May need to reduce his bp meds after piper (if symptoms resolve and bp improves) Clinical Quality Measures AMI/AHF: ASA po Prior to arrival: No MELCHOR ZAVALA SENIOR JAVA ARCHITECT February 16, 2019 09:44 SUNNY TOMLINSON MD FACP FAC CCDS February 16, 2019 12:16
[2019-02-16 10:58] LABS: INR 1.8 (0.8-1.4); PROTHROMBIN TIME PATIENT 21.9 SEC (12.2-14.7)
[2019-02-16 14:20] VITALS: BP 111/77
[2019-02-16 16:12] VITALS: BP 159/92
--- NOTE | 2019-02-16 17:27 | Progress Note (SOAP) ---
Subjective Date Seen by a Provider: February 16, 2019 Time Seen by a Provider: 17:00 Subjective/Events-last exam doing ok. pain controlled. no fever/chills. tolerating some diet. on lovenox for factor V lieden Objective Exam Vital Signs Date Time Temp Pulse Resp B/P (MAP) Pulse Ox O2 Delivery O2 Flow Rate FiO2 02/16/19 16:12 98.1 68 20 159/92 (114) 97 Room Air 02/16/19 14:20 98.8 73 20 111/77 (88) 96 Room Air 02/16/19 09:00 Room Air 02/16/19 08:00 98.1 75 20 126/56 (79) 95 Room Air 02/16/19 03:59 98.6 71 18 144/64 (90) 95 Room Air 02/15/19 23:34 98.7 64 20 145/65 (91) 94 Room Air 02/15/19 21:00 Room Air 02/15/19 20:43 98.1 71 18 163/88 (113) 95 Room Air I & O 02/16/19 07:00 Intake Total 1730 ml Balance 1730 ml Capillary Refill : Less Than 3 Seconds General Appearance: No Apparent Distress HEENT: PERRL/EOMI Neck: Full Range of Motion Respiratory: Lungs Clear, Normal Breath Sounds Cardiovascular: Regular Rate, Rhythm Gastrointestinal: normal bowel sounds, soft Extremity: Normal Capillary Refill Neurologic/Psychiatric: Alert, Oriented x3 Skin: Normal Color Lymphatic: No Adenopathy Results Lab Laboratory Tests 02/16/19 10:36: Prothrombin Time 21.9H, INR Comment 1.8H Assessment/Plan Assessment/Plan Assess & Plan/Chief Complaint sx chronic calculous cholecystitis. on coumadin for factor V lieden. will proceed with lovenox and drift of INR and lap piper this wednesday(0900). post-op: continue lovenox daily for 7 days and start coumadin POD#1. Clinical Quality Measures AMI/AHF: ASA po Prior to arrival: No DVT/VTE Risk/Contraindication: Risk Factor Score Per Nursin RFS Level Per Nursing on Admit: 4+=Very High MARTY ALCALA MD February 16, 2019 17:27
[2019-02-16] MEDS: ENOXAPARIN 40 MG/0.4 ML (LOVENOX) SYR SC SCH (19:14)
--- NOTE | 2019-02-16 19:36 | Progress Note-Pre Operative ---
Pre-Operative Progress Note H&P Reviewed The H&P was reviewed, patient examined and no changes noted. Date Seen by Provider: February 16, 2019 Time Seen by Provider: 19:35 Date H&P Reviewed: February 16, 2019 Time H&P Reviewed: 19:35 Pre-Operative Diagnosis: sx chronic calculous cholecystitis with hx factor V MARTY Blanton MD February 16, 2019 19:36
[2019-02-16] MEDS ORDERED: HYDR-34 PO (19:38)
--- NOTE | 2019-02-16 19:39 | Discharge Inst-Surgical ---
D/C Lap Instructions-KIDO New, Converted, or Re-Newed RX: RX on Chart Follow Up Appt in 2 weeks Activity as tolerated No driving for 24 hours No driving while on pain medications Incentive Spirometry use every 2 hours while awake Regular Diet continue lovenox 40 mg SQ daily for 7 days. resume normal coumadin dosing POD#1. lortab PRN pain. Symptoms to Report: Fever over 101 degree F, Nausea/Vomiting Infection Signs and Symptoms to report: Increased redness, Foul odor of wound, Increased drainage Bathing instructions: May shower Operative Area Clean/Dry; Keep incision clean/dry If any problems/questions: Contact your physician or go to Emergency Room MARTY ALCALA MD February 16, 2019 19:39
[2019-02-16] MEDS ORDERED: ENOXAPARIN 40 MG/0.4 ML (LOVENOX) SYR SC NR (19:45)
[2019-02-16] MEDS: ATORVASTATIN 40 MG (LIPITOR) TABLET PO SCH (21:07)
[2019-02-17] VITALS (11 sets, daily range): BP systolic 144–176; BP diastolic 66–90
[2019-02-17 05:27] LABS: HEMOGLOBIN 13.3 G/DL (13.3-17.7); RED CELL DISTRIBUTION WIDTH 13.6 % (10.0-14.5); WHITE BLOOD COUNT 7.5 10^3/uL (4.3-11.0)
[2019-02-17 06:05] LABS: CALCIUM 8.3 MG/DL (8.5-10.1); CREATININE SERUM 1.29 MG/DL (0.60-1.30); POTASSIUM 3.7 MMOL/L (3.6-5.0)
[2019-02-17 06:17] LABS: INR 1.5 (0.8-1.4); PROTHROMBIN TIME PATIENT 18.2 SEC (12.2-14.7)
[2019-02-17] MEDS: hydrALAZINE (APRESOLINE) 25 MG TAB PO SCH ×2 (06:23→15:06)
[2019-02-17] MEDS: doxAzosin 4 MG (CARDURA) TAB PO SCH ×2 (06:23→15:06)
[2019-02-17] MEDS: NS IV 1000 ML 1,000 ML IV SCH (08:59)
[2019-02-17] MEDS ORDERED: fentaNYL INJECTION 100 MCG/2 ML AMP ONE (09:20)
[2019-02-17] MEDS ORDERED: ROCURONIUM 10 MG/ML 5 ML SYRINGE IV ONE (09:20)
[2019-02-17] MEDS ORDERED: LIDOCAINE PF 2% 5 ML (XYLOCAINE) VIAL ONE (09:20)
[2019-02-17] MEDS ORDERED: SEVOFLURANE (ULTANE) 15 ML INHAL SOLN ONE (09:20)
[2019-02-17] MEDS ORDERED: ONDANSETRON 4 MG/2 ML (SDV) Z0FRAN ONE (09:20)
[2019-02-17] MEDS ORDERED: DEXAMETHASONE 10 MG/ML (DECADRON) 1 ML VIAL ONE (09:20)
[2019-02-17] MEDS ORDERED: proPOfol 200 MG/20 ML (DIPRIVAN) VIAL IV ONE (09:20)
[2019-02-17] MEDS ORDERED: NEOSTIGMINE 1 MG/ML 5 ML SYRINGE ONE (09:20)
[2019-02-17] MEDS ORDERED: GLYCOPYRROLATE 0.2 MG/ML (ROBINUL) 2 ML VIAL ONE (09:20)
[2019-02-17] MEDS ORDERED: BUP/EPI 0.5% 1:200,000 (SENSORCAINE) 30 ML VIAL ONE (09:50)
[2019-02-17] MEDS ORDERED: CLINDAMYCIN 900 MG/50 ML IVPB 50 ML IV NR (10:00)
[2019-02-17] MEDS ORDERED: LACTATED RINGERS 1,000 ML IV PRN (10:25)
--- NOTE | 2019-02-17 11:33 | Progress Note-Post Operative ---
Post-Operative Progess Note Surgeon (s)/Card Services Specialist (s) Surgeon MARTY ALCLAA MD Card Services Specialist: marycarmen rajput QUALITY ENG Pre-Operative Diagnosis sx chronic calculous cholecystitis with hx factor V lieden Post-Operative Diagnosis same Procedure & Operative Findings Date of Procedure 02/17/19 Procedure Performed/Findings laparoscopic cholecystectomy Anesthesia Type get Estimated Blood Loss Estimated blood loss (mL): minimal Specimens/Packing Specimens Removed gallbladder MARTY ALCALA MD February 17, 2019 11:33
[2019-02-17] MEDS ORDERED: morphine INJ 10 MG/ML 1ML (SYR OR VIAL) ONE (11:58)
[2019-02-17] MEDS ORDERED: ONDANSETRON 4 MG/2 ML (SDV) Z0FRAN IVP PRN (12:00)
[2019-02-17] MEDS ORDERED: morphine INJ 10 MG/ML 1ML (SYR OR VIAL) IVP ONE (12:00)
[2019-02-17] MEDS ORDERED: HYDROmorphone 2 MG/ML VIAL (DILAUDID) IV ONE (12:00)
[2019-02-17] MEDS ORDERED: LABETALOL HCL 20 MG/4 ML VIAL ONE (12:02)
[2019-02-17] MEDS ORDERED: LABETALOL HCL 20 MG/4 ML VIAL IV PRN (12:30)
[2019-02-17] MEDS: CLOPIDOGREL 75 MG (PLAVIX) TABLET PO SCH (12:59)
[2019-02-17] MEDS: lisINopril 40 MG (PRINIVIL) TABLET PO SCH (13:03)
[2019-02-17] MEDS: TAMSULOSIN 0.4 MG (FLOMAX) CAP PO SCH (13:04)
[2019-02-17] MEDS: CARVEDILOL 12.5 MG (COREG) TABLET PO SCH (13:04)
[2019-02-17] MEDS: PANTOPRAZOLE 40 MG (PROTONIX) TAB PO SCH (13:04)
--- NOTE | 2019-02-17 14:12 | Progress Note-Cardiology ---
Cardiology SOAP Progress Note Subjective: No cp or palp or syncope Awaiting surgery when I saw him this am Objective: I&O/Vital Signs 02/17/19 02/17/19 02/17/19 02/17/19 08:00 09:00 11:45 11:50 Temp 98.7 98.8 Pulse 78 Resp 18 16 17 B/P (MAP) 174/77 (109) Pulse Ox 96 98 98 O2 Delivery Room Air Room Air OxyMask OxyMask O2 Flow Rate 5 5 02/17/19 02/17/19 02/17/19 02/17/19 12:00 12:10 12:20 12:30 Resp 16 14 16 16 Pulse Ox 99 96 95 93 O2 Delivery OxyMask OxyMask OxyMask Room Air O2 Flow Rate 5 2 1 02/17/19 02/17/19 12:35 12:45 Temp 97.9 98.2 Pulse 71 Resp 14 18 B/P (MAP) 163/77 (105) Pulse Ox 96 94 O2 Delivery Room Air Room Air 02/16/19 23:59 Intake Total 3200 ml Balance 3200 ml Weight (Pounds): 205 Weight (Ounces): 4.8 Weight (Calculated Kilograms): 93.296365 Constitutional: AAO x 3, well-developed, well-nourished Respiratory: No accessory muscle use, No respiratory distress; chest expansion is symmetric, chest is bilaterally symmetric, lungs clear to auscultation Cardiovascular: regular rate-rhythm; No JVD; S1 and S2 Gastrointestional: No tender; soft, round, audible bowel sounds Extremities: no lower extremity edema bilateral Neurologic/Psychiatric: grossly intact, power is 5/5 both on sides Skin: No rash, No ulcerations Results/Procedures: Labs Laboratory Tests 02/17/19 05:07: White Blood Count 7.5, Red Blood Count 4.55, Hemoglobin 13.3, Hematocrit 39L, Mean Corpuscular Volume 85, Mean Corpuscular Hemoglobin 29, Mean Corpuscular Hemoglobin Concent 34, Red Cell Distribution Width 13.6, Platelet Count 167, Mean Platelet Volume 11.0H, Prothrombin Time 18.2H, INR Comment 1.5H, Sodium Level 139, Potassium Level 3.7, Chloride Level 112H, Carbon Dioxide Level 19L, Anion Gap 8, Blood Urea Nitrogen 14, Creatinine 1.29, Estimat Glomerular Filtration Rate 55, BUN/Creatinine Ratio 11, Glucose Level 107H, Calcium Level 8.3L A/P: Assessment: R-sided chest pain and shoulder pain, likely to be referred pain from chronic, calculous cholecystitis Uncontrolled hypertension, now improved Cholelithiasis seen on CT chest of 02/13/19. Consider referred gallbladder pain Pulm nodule (7mm) on CT chest of 02/13/19. F/u with Dr Fajardo Reported intolerance to Norvasc d/t LE swelling. H/o L renal artery stenosis treated with stenting of L main and L accessory renal arteries in 2001 at [facility] in , patent and with only mild stenosis on CT angio of abdomen on 11/23/12. No KASSANDRA on renal u/s of 05/20/18 (renal cysts were found for which f/u is advised with pcp) Factor V Leiden mutation, treated with chronic warfarin therapy that is managed by Dr Fajardo S/p [place] filter in [address] Benjamin at [place], [place] Echo of March 2018 showed LVEF 60-65%. Grade 1 diastolic dysfunction. PASP 25- 30mmHg. Mild TR and MR. H/o R carotid artery stenosis (mod on u/s of and mild on CTA of 08/17/13) MPI of March 2018 showed no evidence of significant ischemia or infarction. LVEF 67% Minimal carotid plaque without evidence of hemodynamic significance in March 2018 Plan: * Awaiting lap piper by Dr Benjamin * Hold warfarin until after surgery * Continue current hypertensive regimen, but will probably would need to be reduced after piper, because htn is likely to be at least partially due to pain from gallbladder * Monitor lab * I discussed his case with Dr Fajardo this am * Dr Tapia covering Cardiology this long weekend. Please call if needed Clinical Quality Measures AMI/AHF: ASA po Prior to arrival: SUNNY Navarro MD FACP FAC CCDS February 17, 2019 14:12
--- NOTE | 2019-02-17 14:14 | Anesthesia-General Post-Op ---
General Patient Condition Mental Status/LOC: Same as Preop Cardiovascular: Satisfactory Nausea/Vomiting: Absent Respiratory: Satisfactory Pain: Controlled Complications: Absent Post Op Complications Complications None Follow Up Care/Instructions Patient Instructions None needed. Anesthesia/Patient Condition Patient Condition Patient is doing well, no complaints, stable vital signs, no apparent adverse anesthesia problems. No complications reported per nursing. SINEA ALFREDO CRNA February 17, 2019 14:14
[2019-02-17] MEDS: HYDROcodone/APAP 7.5 MG/325 MG (LORTAB, LORCET PLUS) TABLET PO PRN (15:43)
--- NOTE | 2019-02-17 20:26 | OPERATIVE REPORT ---
DATE OF SERVICE: 02/17/2019 ATTENDING PRIMARY CARE PHYSICIAN: Mahnaz Fajardo MD PREOPERATIVE DIAGNOSIS: Symptomatic chronic calculous cholecystitis. POSTOPERATIVE DIAGNOSIS: Symptomatic chronic calculous cholecystitis. PROCEDURE: Laparoscopic cholecystectomy. SURGEON: Marty Alcala MD ROUTE PROCESS ADMINISTRATOR: Ramon Marte APRN ANESTHESIA: General endotracheal. ESTIMATED BLOOD LOSS: Minimal. FINDINGS: Slight gallbladder wall thickening as well as multiple small gallstones. DISPOSITION: The patient tolerated the procedure well. INDICATIONS: The patient is a 73-year-old male who presented to the Emergency Department with chest pain. He was also found to be significantly hypertensive and was admitted to the ICU and worked up for acute coronary syndrome. He has a history of coronary artery disease as well as lower extremity DVTs and factor V Leiden and is currently on antihypertensives as well as Coumadin. A CT scan was performed, which did show gallstones as well. Once his blood pressure was controlled and he was cleared by Cardiology as well as his primary care physician, recommendation was to proceed with a slow drift of Coumadin to normalization of INR and bridging with Lovenox. We will also recommend continuation of Lovenox after surgery for 1 week including continuation of Coumadin as well as Plavix that was started by Cardiology as well. 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 DESCRIPTION OF PROCEDURE: The patient was brought to the operating room, laid supine on the table. After adequate IV pain and sedative medications and general endotracheal intubation, the abdomen was prepped and draped in standard surgical fashion. A 0.5% Marcaine with epinephrine was used to anesthetize overlying skin and a transverse skin incision made using a 15 blade. An 0 silk suture was applied to the medial aspect of the incision for traction and a Veress needle inserted with a low opening pressure of 0 mmHg and the abdomen was insufflated to 15 mmHg pressure. The Veress needle was removed and a 5 mm Xcel trocar placed followed by a 5 mm 45-degree angle laparoscope visualizing the peritoneal cavity. A 4-quadrant abdominal exploration was performed. There were some omental adhesions towards the lateral abdominal wall. There was also mild hepatomegaly. There were omental adhesions to the gallbladder fundus and body consistent with chronic cholecystitis. Under direct visualization, we then proceeded to place a supraumbilical 10 mm port after the skin and peritoneal lining were anesthetized using 0.5% Marcaine and a transverse skin incision made using a 15 blade. In a similar manner, a right upper abdominal quadrant 5 mm port was placed. The patient was then placed in reverse Trendelenburg position as well as plane right side up, left side down. The fundus of the gallbladder was then retracted and the omental adhesions taken down using a [place] dissector bluntly. The hepatoduodenal ligament was then opened using blunt dissection as well as cautery using the hook instrument. The entire critical view of safety was identified including the triangle of Calot as well as the cystic duct and artery as the only two structures going into the gallbladder as well as the cystic plate behind the proximal gallbladder. A timeout was then taken and the cystic duct and artery were then clipped proximally, distally and cut with EndoShears. The gallbladder was then dissected off of the liver bed using cautery and the hook instrument with visualization of good hemostasis as well as no leaking ducts of Luschka. The gallbladder was removed through the 10 mm port site using an EndoCatch bag. The 10 mm port site fascia and peritoneum were then closed under direct visualization using a Madhu-Ron device and 0 Vicryl suture. The abdomen was then desufflated and remaining ports removed. All skin incisions were closed using 4-0 Monocryl running subcuticular sutures. Wounds were then cleaned and covered with Dermabond. The patient tolerated the procedure well. We will start a clear liquid diet and advance as tolerated as well as IV and oral pain medication. Once he is tolerating clears, has good pain control with oral pain medications, ambulating well, we will discharge him home. He will be instructed to start p.m. dose of Lovenox today as well as to restart all of his anticoagulation medications starting tomorrow including Coumadin and Plavix. We will also recommend a strict DVT prophylaxis with early significant ambulation. Job ID: [id number] DocumentID: [id number] Dictated Date: 02/17/2019 11:47:36 Joint Machine Operator Date: 02/17/2019 20:25:23 Dictated By: MARTY ALCALA MD
== END 2019-02-17 17:27 | disposition home or self-care (01) | DRG 418 ==
LOC: EDUNIT# 06:48 → ER 06:51 → ICU 10:28 → OBSVTOIN 02-15 10:30 → 4TH 02-15 12:16
PROVIDERS: ADMIT Family Medicine; ATTEND Family Medicine
PROC: 0FT44ZZ Resection of Gallbladder, Percutaneous Endoscopic Approach (ICD-10-PCS; principal; 2019-02-17 10:34)
DX: K80.10 Calculus of gallbladder with chronic cholecystitis without obstruction (principal); I16.1 Hypertensive emergency; I10 Essential (primary) hypertension; E78.5 Hyperlipidemia, unspecified; R91.8 Other nonspecific abnormal finding of lung field; D68.2 Hereditary deficiency of other clotting factors; I25.10 Atherosclerotic heart disease of native coronary artery without angina pectoris; I34.0 Nonrheumatic mitral (valve) insufficiency; M50.222 Other cervical disc displacement at C5-C6 level; N40.0 Benign prostatic hyperplasia without lower urinary tract symptoms; N28.1 Cyst of kidney, acquired; M19.90 Unspecified osteoarthritis, unspecified site; Z79.01 Long term (current) use of anticoagulants; Z95.828 Presence of other vascular implants and grafts; Z86.718 Personal history of other venous thrombosis and embolism; Z88.8 Allergy status to other drugs, medicaments and biological substances
CPT/HCPCS: 36415; 71045; 71275; 80048; 80053; 80061; 83735; 83874; 83880; 84484; 85025; 85027; 85379; 85610; 85730; 93005; G0378

== ENCOUNTER → 2019-07-09 | Outpatient (CLI) | payer MEDICARE ==
[~2019-07-09] MED LIST changes: +ACET-2650 PO; +ATOR40TA PO; +CHOL5000 PO; +CLOP75TA28 PO; +DOXA4TAB2 PO; +ENOX40DI8 SC; +HYDR-34 PO; +HYDR-3923 PO; +LISI40TA PO; +UBID1CAP53 PO
--- NOTE | 2019-07-09 14:24 | Diagnostic Imaging Report ---
EXAMINATION: CHEST (PA AND LATERAL) CLINICAL INDICATION: 73-year-old male, hoarseness. Inhalation of gasoline one week ago. COMPARISON: Chest radiograph February 13, 2019. CT chest February 13, 2019. FINDINGS: Heart size and mediastinal contours are unremarkable. There is no identified pneumothorax. There is no pleural effusion. There is no identified focal airspace consolidation. There are degenerative changes of the thoracic spine. There is cervical spinal hardware noted. IMPRESSION: 1. No identified acute cardiopulmonary abnormality. 2. Previously noted pulmonary nodules on prior CT exam are not well seen or evaluated radiographically. Dictated by: Dictated on workstation # [id number]
== END ==
LOC: RAD 13:46
PROVIDERS: ATTEND Nurse Practitioner Family
DX: R49.0 Dysphonia (principal)
CPT/HCPCS: 71046

== ENCOUNTER 2020-08-24 09:52 | Emergency (ER) | payer MEDICARE ==
[~2020-08-24] VITALS: Ht 172 cm; Wt 88.0 kg
[~2020-08-24 09:52] MED LIST changes: +AMLO-250 PO; -AMLO5TAB9 PO; -TAMS0.4C98 PO
[2020-08-24] MEDS ORDERED: hydrALAZINE (APESOLINE) 20 MG/ML VIAL IV ONE (11:00)
[2020-08-24 11:03] LABS: BASOPHILS # (AUTO) 0.1 10^3/uL (0.0-0.1); BASOPHILS % (AUTO) 2 % (0-10); EOSINOPHILS # (AUTO) 0.1 10^3/uL (0.0-0.3); EOSINOPHILS % (AUTO) 2 % (0-10); HEMATOCRIT 45 % (40-54); HEMOGLOBIN 15.2 g/dL (13.3-17.7); LYMPHOCYTES # (AUTO) 2.5 10^3/uL (1.0-4.0); LYMPHOCYTES % (AUTO) 30 % (12-44); MEAN CORPUSCULAR HEMOGLOBIN 29 pg (25-34); MEAN CORPUSCULAR HGB CONC 34 g/dL (32-36); MEAN CORPUSCULAR VOLUME 86 fL (80-99); MEAN PLATELET VOLUME 10.3 fL (9.0-12.2); MONOCYTES # (AUTO) 0.8 10^3/uL (0.0-1.0); MONOCYTES % (AUTO) 9 % (0-12); NEUTROPHILS # (AUTO) 4.7 10^3/uL (1.8-7.8); NEUTROPHILS % (AUTO) 58 % (42-75); PLATELET COUNT 231 10^3/uL (130-400); WHITE BLOOD COUNT 8.2 10^3/uL (4.3-11.0)
[2020-08-24 11:21] LABS: ALBUMIN 3.8 GM/DL (3.2-4.5)
[2020-08-24 11:22] LABS: INR 3.8 (0.8-1.4)
[2020-08-24 11:23] LABS: CALCIUM 8.3 MG/DL (8.5-10.1)
[2020-08-24 11:25] LABS: BILIRUBIN,TOTAL 0.5 MG/DL (0.1-1.0)
[2020-08-24 11:27] LABS: CREATININE SERUM 1.25 MG/DL (0.60-1.30)
[2020-08-24 11:30] LABS: MAGNESIUM 1.8 MG/DL (1.6-2.4)
--- NOTE | 2020-08-24 11:31 | Diagnostic Imaging Report ---
EXAMINATION: Chest 1 view HISTORY: Chest pain COMPARISON: None available. FINDINGS: The lungs are clear without edema or pneumonia. No pleural effusion or pneumothorax. Heart size is normal. IMPRESSION: 1. Clear lungs. Dictated by: Dictated on workstation # [id number]
[2020-08-24] MEDS ORDERED: amLODIPine 5 MG (NORVASC) TAB PO ONE (12:00)
--- NOTE | 2020-08-24 12:06 | ED Chest Pain ---
General Chief Complaint: Cardiac/General Problems Stated Complaint: HIGH BP - 220/105 Nursing Triage Note: HYPERTENSION STARTING YESTERDAY DESPITE DOUBLING HIS LISINOPRIL. COMPLAINS OF CHEST PRESSURE. Nursing Sepsis Screen: No Definite Risk Source: patient Exam Limitations: no limitations History of Present Illness Date Seen by Provider: Aug 24, 2020 Time Seen by Provider: 10:48 Initial Comments Here with report of high blood pressure. Apparently it was this way yesterday morning and he got better by the afternoon returned this morning. He has taken his medications as prescribed and has not missed doses. Noted a little bit of chest pressure yesterday but otherwise not feeling anything significant. Does have factor V Leiden and is on warfarin therapy. Denies nausea, vomiting, diarrhea, weakness or persistent sweating. Timing/Duration: 24 hours Severity/Quality: mild, pressure Location: central Radiation: no radiation Activities at Onset: none Prior CP/Workup: cardiac cath ASA po INSTRUMENT ENGINEER: No (Allergy) NTG SL INSTRUMENT ENGINEER: No Associated Symptoms: No abdominal pain, No back pain, No edema, No fatigue, No fever/chills, No nausea/vomiting, No shortness of breath, No weakness Allergies and Home Medications Allergies Coded Allergies: aspirin (Unverified Allergy, Mild, HIVES, 12/23/09) Home Medications Acetaminophen 650 Mg Tablet.er, 1,300 MG PO BID PRN for PAIN-MILD, (Reported) Atorvastatin Calcium 40 Mg Tablet, 40 MG PO HS Prescribed by: ALYCE CASTANEDA on 02/15/19 0850 Carvedilol 12.5 Mg Tablet, 12.5 MG PO BID, (Reported) Cholecalciferol (Vitamin D3) 5,000 Unit Capsule, 5,000 UNIT PO DAILY, (Reported) Clopidogrel Bisulfate 75 Mg Tablet, 75 MG PO DAILY HOLD UNTIL AFTER GALLBLADDER SURGERY Prescribed by: ALYCE CASTANEDA on 02/15/19 0850 Doxazosin Mesylate 4 Mg Tablet, 4 MG PO Q8HR Prescribed by: ALYCE CASTANEDA on 02/15/19 0850 Enoxaparin Sodium 40 Mg/0.4 Ml Syringe, 40 MG SC Q24H ONE DOSE DAILY - HOSPITAL GAVE WEDNESDAY DOSE, HOLD ON WEDNESDAY, THEN TAKE DAILY POST OPERATIVELY FOR BRIDGING COUMADIN Prescribed by: ALYCE CASTANEDA on 02/15/19 0850 Hydralazine HCl 25 Mg Tablet, 50 MG PO Q8HR Prescribed by: ALYCE CASTANEDA on 02/15/19 0850 Hydrocodone Bit/Acetaminophen 1 Ea Tablet, 1 EACH PO Q4H PRN for PAIN-MODERATE Prescribed by: MARTY ALCALA on 02/16/191937 Lisinopril 40 Mg Tablet, 20 MG PO BID, (Reported) TAKES 1/2 (40MG) TABLET Magnesium Oxide 250 Mg Tablet, 250 MG PO BID, (Reported) Tamsulosin HCl 0.4 Mg Cap, 0.4 MG PO BID, (Reported) Ubidecarenone/Vit E Acetate 1 Each Capsule, 1 CAP PO DAILY, (Reported) Warfarin Sodium 3 Mg Tablet, 1 TAB PO UD HOLD COUMADIN UNTIL AFTER GALLBLADDER SURGERY THEN TAKE 3MG FOR 2 DAYS THEN TAKE 1.5MG FOR ONE DAY THEN REPEAT. Prescribed by: ALYCE CASTANEDA on 02/15/19 0850 Patient Home Medication List Home Medication List Reviewed: Yes Review of Systems Review of Systems Constitutional: see HPI; No chills, No fever EENTM: No Symptoms Reported Respiratory: See HPI Cardiovascular: See HPI Gastrointestinal: See HPI Genitourinary: No Symptoms Reported Musculoskeletal: no symptoms reported Skin: no symptoms reported All Other Systems Reviewed Negative Unless Noted: Yes Past Lhokkdr-Nxvoqm-Crkjwn Hx Past Med/Social Hx: Reviewed Nursing Past Med/Soc Hx Patient Social History Alcohol Use: Denies Use Recreational Drug Use: No Smoking Status: Never a Smoker Former Smoker, Quit: Feb 26, 1988 2nd Hand Smoke Exposure: No Recent Foreign Travel: No Contact w/Someone Who Travel: No Recent Infectious Disease Expo: No Recent Hopitalizations: No Seasonal Allergies Seasonal Allergies: No Past Medical History Surgeries: Yes (RENAL STENTS, LISA FILTER) Abdominal, Orthopedic, Renal, Vascular Surgery Respiratory: No Cardiac: Yes (renal artery stenosis status post stenting) Deep Vein Thrombosis, High Cholesterol, Hypertension, Peripheral Vascular Neurological: No Reproductive Disorders: No Sexually Transmitted Disease: No Genitourinary: Yes Benign Prostatic Hyperpl Gastrointestinal: No Musculoskeletal: Yes (Disc bulging at C5-C6) Arthritis Endocrine: No HEENT: No Loss of Vision: Denies Hearing Impairment: Denies Cancer: No Psychosocial: No Integumentary: No Blood Disorders: Yes (Factor V Leiden) Family Medical History Reviewed Nursing Family Hx Family history: Hypertension 03 FATHER 03 MOTHER 09 SISTER History of - disorder 03 FATHER (PASSED FROM ALS LIKE SYMPTOMS, BLOOD CLOTTING DISORDER ) 03 MOTHER Hypercholesterolemia 09 SISTER Myocardial infarction 03 MOTHER Neoplasm 03 MOTHER Stroke 03 MOTHER, Onset:60 years & older Hypertension, Stroke, Other Conditions/Hx Physical Exam Vital Signs Vital Signs - First Documented 08/24/20 10:20 Temp 37.0 Pulse 64 Resp 16 B/P (MAP) 220/114 (149) Pulse Ox 98 O2 Delivery Room Air Capillary Refill : Less Than 3 Seconds Height, Weight, BMI Height: 5'8.00" Weight: 205lbs. 4.8oz. 93.366734pn; 29.00 BMI Method:Stated General Appearance: No Apparent Distress, WD/WN HEENT: PERRL/EOMI, Pharynx Normal Neck: Non Tender, Supple Respiratory: Lungs Clear, Normal Breath Sounds Cardiovascular: Regular Rate, Rhythm, No Murmur Gastrointestinal: Non Tender, Soft Extremity: Normal Range of Motion, Non Tender Neurologic/Psychiatric: Alert, Oriented x3 Skin: Normal Color, Warm/Dry Progress/Results/Core Measures Results/Orders Lab Results Laboratory Tests Test 08/24/20 10:50 Range/Units White Blood Count 8.2 4.3-11.0 10^3/uL Red Blood Count 5.30 4.30-5.52 10^6/uL Hemoglobin 15.2 13.3-17.7 g/dL Hematocrit 45 40-54 % Mean Corpuscular Volume 86 80-99 fL Mean Corpuscular Hemoglobin 29 25-34 pg Mean Corpuscular Hemoglobin Concent 34 32-36 g/dL Red Cell Distribution Width 12.9 10.0-14.5 % Platelet Count 231 130-400 10^3/uL Mean Platelet Volume 10.3 9.0-12.2 fL Immature Granulocyte % (Auto) 0 % Neutrophils (%) (Auto) 58 42-75 % Lymphocytes (%) (Auto) 30 12-44 % Monocytes (%) (Auto) 9 0-12 % Eosinophils (%) (Auto) 2 0-10 % Basophils (%) (Auto) 2 0-10 % Neutrophils # (Auto) 4.7 1.8-7.8 10^3/uL Lymphocytes # (Auto) 2.5 1.0-4.0 10^3/uL Monocytes # (Auto) 0.8 0.0-1.0 10^3/uL Eosinophils # (Auto) 0.1 0.0-0.3 10^3/uL Basophils # (Auto) 0.1 0.0-0.1 10^3/uL Immature Granulocyte # (Auto) 0.0 0.0-0.1 10^3/uL Prothrombin Time 38.0 H 12.2-14.7 SEC INR Comment 3.8 H 0.8-1.4 Activated Partial Thromboplast Time 57 H 24-35 SEC Sodium Level 137 135-145 MMOL/L Potassium Level 4.0 3.6-5.0 MMOL/L Chloride Level 104 98-107 MMOL/L Carbon Dioxide Level 23 21-32 MMOL/L Anion Gap 10 5-14 MMOL/L Blood Urea Nitrogen 14 7-18 MG/DL Creatinine 1.25 0.60-1.30 MG/DL Estimat Glomerular Filtration Rate 57 BUN/Creatinine Ratio 11 Glucose Level 113 H 70-105 MG/DL Calcium Level 8.3 L 8.5-10.1 MG/DL Corrected Calcium 8.5 8.5-10.1 MG/DL Magnesium Level 1.8 1.6-2.4 MG/DL Total Bilirubin 0.5 0.1-1.0 MG/DL Aspartate Amino Transf (AST/SGOT) 20 5-34 U/L Alanine Aminotransferase (ALT/SGPT) 21 0-55 U/L Alkaline Phosphatase 120 40-136 U/L Myoglobin 64.1 10.0-92.0 NG/ML Troponin I < 0.028 <0.028 NG/ML Total Protein 7.0 6.4-8.2 GM/DL Albumin 3.8 3.2-4.5 GM/DL My Orders Orders - ALVARO DE LA TORRE MD Cbc With Automated Diff (08/24/20 10:54) Magnesium (08/24/20 10:54) Chest 1 View, Ap/Pa Only (08/24/20 10:54) Ekg Tracing (08/24/20 10:54) Comprehensive Metabolic Panel (08/24/20 10:54) Myoglobin Serum (08/24/20 10:54) Protime With Inr (08/24/20 10:54) Partial Thromboplastin Time (08/24/20 10:54) O2 (08/24/20 10:54) Monitor-Rhythm Ecg Trace Only (08/24/20 10:54) Lipid Panel (08/25/20 06:00) Ed Iv/Invasive Line Start (08/24/20 10:54) Troponin I (08/24/20 10:54) Hydralazine Injection (Apresoline Inject (08/24/20 11:00) Amlodipine Tablet (Norvasc Tablet) (08/24/20 12:00) Medications Given in ED Current Medications Medications Dose Ordered Sig/Maynor Route Start Time Stop Time Status Last Admin Dose Admin Hydralazine HCl 10 mg ONCE ONCE IV 08/24/20 11:00 08/24/20 11:01 DC 08/24/20 11:20 10 MG Vital Signs/I&O 08/24/20 10:20 Temp 37.0 Pulse 64 Resp 16 B/P (MAP) 220/114 (149) Pulse Ox 98 O2 Delivery Room Air Blood Pressure Mean: 149 Progress Progress Note : Progress Note Seen and evaluated. IV, labs, chest x-ray and EKG ordered. No aspirin as pa kadi is allergic. He is on warfarin. We will check for INR. Hydralazine 10 mg IV ordered. Monitor patient. 09/28/2004: Patient's blood pressure has improved to the 170s over 90s but he still is hypertensive. I did discuss the case with Dr. Tapia. We will initiate amlodipine 10 mg p.o. now and continue daily and patient is to follow-up with Dr. Reddy as work-up currently is n egative. Discharged home with return precautions. Patient verbalized understanding of instructions and agreement with plan. Initial ECG Impression Date: Aug 24, 2020 Initial ECG Impression Time: 10:26 Initial ECG Rate: 57 Initial ECG Rhythm: Normal Sinus Initial ECG Impression: Normal Initial ECG Comparisson: Unchanged Comment Sinus rhythm with normal axis. No evidence of ST elevation SC. No changes from previous of 02/16/2019. Interpreted by me. Diagnostic Imaging Diagonstic Imaging: Xray Plain Films/CT/US/NM/MRI: chest Comments [facility] [place], [place] NAME: AMBER MONTEIRO [facility] REC#: [id number] PT STATUS: REG ER : 1945 PHYSICIAN: ALVARO DE LA TORRE MD ADMIT DATE: 08/24/20/ER Signed Date of Exam:08/24/20 CHEST 1 VIEW, AP/PA ONLY EXAMINATION: Chest 1 view HISTORY: Chest pain COMPARISON: None available. FINDINGS: The lungs are clear without edema or pneumonia. No pleural effusion or pneumothorax. Heart size is normal. IMPRESSION: 1. Clear lungs. Dictated by: Dictated on workstation # [id number] Dict: 08/24/20 1129 Trans: 08/24/20 1130 [facility] [id number] Interpreted by: CATHERINE DE LEON MD Electronically signed by: CATHERINE DE LEON MD 08/24/20 1130 Departure Impression Primary Impression: Uncontrolled hypertension Disposition: HOME, SELF-CARE Condition: Improved Departure-Patient Inst. Decision time for Depature: 12:12 Referrals: ALYCE CASTANEDA MD (PCP/Family) Primary Care Physician Patient Instructions: High Blood Pressure (DC), Chest Pain (DC) Add. Discharge Instructions: All discharge instructions reviewed with patient and/or family. Voiced understanding. Continue home medications as previously prescribed. Initiate new medication as prescribed. Follow-up with Dr. Reddy for recheck and further evaluation and to discuss medication change. Return for worse pain, fever, vomiting, weakness, breathing problems, chest pain or other concerns as needed. Scripts Amlodipine Besylate (Amlodipine Besylate) 10 Mg Tablet 10 MG PO DAILY for 30 Days, #30 TAB 0 Refills Prov: ALVARO DE LA TORRE MD 08/24/20 ALVARO DE LA TORRE MD Aug 24, 2020 12:06
[2020-08-24] MEDS ORDERED: AMLO-251 PO (12:13)
[2020-08-24 12:23] VITALS: BP 181/89
== END 2020-08-24 12:23 | disposition home or self-care (01) ==
LOC: EDUNIT# 09:52 → ER 09:53
DX: I10 Essential (primary) hypertension (principal); E78.00 Pure hypercholesterolemia, unspecified; N40.0 Benign prostatic hyperplasia without lower urinary tract symptoms; Z82.49 Family history of ischemic heart disease and other diseases of the circulatory system; Z80.9 Family history of malignant neoplasm, unspecified; Z87.891 Personal history of nicotine dependence; Z86.718 Personal history of other venous thrombosis and embolism; Z88.8 Allergy status to other drugs, medicaments and biological substances; Z79.01 Long term (current) use of anticoagulants
CPT/HCPCS: 36415; 71045; 80053; 83735; 83874; 84484; 85025; 85610; 85730; 93005; 93041

== ENCOUNTER → 2021-01-23 | Outpatient (CLI) | payer SELFPAY ==
[~2021-01-23] MED LIST changes: +AMLO-251 PO; -LISI-552 PO; +LISI20TA26 PO; -LISI40TA PO; +LISI40TA9 PO; +UBIQ100C2 PO; -UBIQ100C3 PO
--- NOTE | 2021-01-23 13:40 | Diagnostic Imaging Report ---
CT cardiac calcium score INDICATION: Hypertension, hyperlipidemia There are no prior CT cardiac calcium score exams available for comparison. The CTA chest exam performed on 02/13/2019 did suggest that there were coronary artery calcifications present. On this exam the total calcium score is 197.9 (please see attached report). The images through the thorax show that the heart size is within normal limits and stable when compared to the prior exam. Coronary calcifications are noted. The aorta is not abnormally dilated. There is no obvious mediastinal or hilar adenopathy. The prior study did show an 8 mm wispy opacity in the right middle lobe and a 7 mm nodule in the lingula. Those findings are again evident and no different. The other pulmonary nodules reported on the prior exam are not included on this study. The bone windows are unremarkable for a fracture or for a destructive lesion. The sections through the upper abdomen again show the cyst within the left lobe of liver that was noted on the prior study. IMPRESSION: 1. The total calcium score is 197.9 (please see attached report). 2. There is no acute cardiopulmonary abnormality noted. 3. The wispy opacity in the right middle lobe and the nodule in the lingula seen on the prior study are evident and no different. 4. The other pulmonary nodules reported on the prior exam were not included on this study. Dictated by: Dictated on workstation # [id number]
== END ==
LOC: RAD FS 10:24
PROVIDERS: ATTEND Nurse Practitioner Family
DX: I10 Essential (primary) hypertension (principal); E78.5 Hyperlipidemia, unspecified; R91.8 Other nonspecific abnormal finding of lung field
CPT/HCPCS: 75571

== ENCOUNTER 2021-03-10 08:32 | Emergency (ER) | payer MEDICARE ==
[~2021-03-10] VITALS: Ht 172 cm; Wt 90.9 kg
[2021-03-10] MEDS ORDERED: hydrALAZINE (APESOLINE) 20 MG/ML VIAL ONE (09:20)
[2021-03-10] MEDS ORDERED: hydrALAZINE (APESOLINE) 20 MG/ML VIAL IV ONE ×2 (09:30→11:15)
[2021-03-10 09:34] LABS: BASOPHILS # (AUTO) 0.1 10^3/uL (0.0-0.1); BASOPHILS % (AUTO) 2 % (0-10); EOSINOPHILS # (AUTO) 0.2 10^3/uL (0.0-0.3); EOSINOPHILS % (AUTO) 2 % (0-10); HEMATOCRIT 46 % (40-54); HEMOGLOBIN 15.6 g/dL (13.3-17.7); LYMPHOCYTES # (AUTO) 2.1 10^3/uL (1.0-4.0); LYMPHOCYTES % (AUTO) 29 % (12-44); MEAN CORPUSCULAR HEMOGLOBIN 29 pg (25-34); MEAN CORPUSCULAR HGB CONC 34 g/dL (32-36); MEAN CORPUSCULAR VOLUME 85 fL (80-99); MEAN PLATELET VOLUME 10.2 fL (9.0-12.2); MONOCYTES # (AUTO) 0.6 10^3/uL (0.0-1.0); MONOCYTES % (AUTO) 8 % (0-12); NEUTROPHILS # (AUTO) 4.3 10^3/uL (1.8-7.8); NEUTROPHILS % (AUTO) 59 % (42-75); PLATELET COUNT 215 10^3/uL (130-400); WHITE BLOOD COUNT 7.2 10^3/uL (4.3-11.0)
[2021-03-10 09:42] LABS: ALBUMIN 3.8 GM/DL (3.2-4.5); CHLORIDE 106 MMOL/L (98-107); POTASSIUM 3.9 MMOL/L (3.6-5.0); SODIUM 142 MMOL/L (135-145)
[2021-03-10 09:44] LABS: CALCIUM 8.8 MG/DL (8.5-10.1)
[2021-03-10 09:45] LABS: GLUCOSE 149 MG/DL (70-105)
[2021-03-10 09:46] LABS: CARBON DIOXIDE 24 MMOL/L (21-32)
[2021-03-10 09:47] LABS: BILIRUBIN,TOTAL 0.3 MG/DL (0.1-1.0)
[2021-03-10 09:48] LABS: ALKALINE PHOSPHATASE 124 U/L (40-136); CREATININE SERUM 1.21 MG/DL (0.60-1.30); GFR ESTIMATED 59
[2021-03-10 09:49] LABS: BUN/CREATININE RATIO 9
[2021-03-10 09:51] LABS: ALANINE AMINOTRANSFERASE 16 U/L (0-55); INR 2.4 (0.8-1.4); PROTHROMBIN TIME PATIENT 26.1 SEC (12.2-14.7)
--- NOTE | 2021-03-10 10:34 | ED Cardiac General ---
History of Present Illness General Chief Complaint: Cardiac/General Problems Stated Complaint: HIGH BLOOD PRESSURE Nursing Triage Note: PT STATES HE HAS ELEVATED BLOOD PRESSURE THIS AM EVEN AFTER TAKIN MORNING MEDS, STATES BP IS 215/109 Source: patient Exam Limitations: no limitations History of Present Illness Date Seen by Provider: Mar 10, 2021 Time Seen by Provider: 09:15 Initial Comments Here with report of elevated blood pressure this morning that was in the range of low 200s systolic over low 100s diastolic. Takes amlodipine 10 mg tablet when blood pressure exceeds normals and he did this this morning. Despite that, blood pressure did not improve. Did note a little bit of very mild chest discomfort that he states may have been a pressure that he associated with the hypertension. Otherwise not having persistent chest pain, breathing problems or other concerns. Does admit that he overexerted himself last week and wonders if maybe this was sequela of that. Has been resting the last few days though. Does intermittently have breakthrough hypertension for which he uses the amlodipine for. Follows with Dr. Fajardo and Dr. Reddy. Timing/Duration: 4-6 hours Severity: mild Location: central Prior CP/Workup: cardiac cath, echocardiography NTG SL SOCIAL SERVICES COORDINATOR: No (On warfarin) ASA po SOCIAL SERVICES COORDINATOR: No Associated Systoms: Chest Pain; No Cough, No Fever/Chills, No Nausea/Vomiting, No Shortness of Air Allergies and Home Medications Allergies Coded Allergies: aspirin (Unverified Allergy, Mild, HIVES, 12/23/09) Home Medications Acetaminophen 650 Mg Tablet.er, 1,300 MG PO BID PRN for PAIN-MILD, (Reported) Amlodipine Besylate 10 Mg Tablet, 10 MG PO DAILY Prescribed by: ALVARO DE LA TORRE on 08/24/20 1213 Atorvastatin Calcium 40 Mg Tablet, 40 MG PO HS Prescribed by: ALYCE FAJARDO on 02/15/19 0850 Carvedilol 12.5 Mg Tablet, 12.5 MG PO BID, (Reported) Cholecalciferol (Vitamin D3) 5,000 Unit Capsule, 5,000 UNIT PO DAILY, (Reported) Clopidogrel Bisulfate 75 Mg Tablet, 75 MG PO DAILY HOLD UNTIL AFTER GALLBLADDER SURGERY Prescribed by: ALYCE FAJARDO on 02/15/19 0850 Doxazosin Mesylate 4 Mg Tablet, 4 MG PO Q8HR Prescribed by: ALYCE FAJARDO on 02/15/19 0850 Enoxaparin Sodium 40 Mg/0.4 Ml Syringe, 40 MG SC Q24H ONE DOSE DAILY - HOSPITAL GAVE WEDNESDAY DOSE, HOLD ON WEDNESDAY, THEN TAKE DAILY POST OPERATIVELY FOR BRIDGING COUMADIN Prescribed by: ALYCE FAJARDO on 02/15/19 08 Hydralazine HCl 25 Mg Tablet, 50 MG PO Q8HR Prescribed by: ALYCE FAJARDO on 02/15/19 0850 Hydrocodone Bit/Acetaminophen 1 Ea Tablet, 1 EACH PO Q4H PRN for PAIN-MODERATE Prescribed by: MARTY ALCALA on 02/16/191937 Lisinopril 40 Mg Tablet, 20 MG PO BID, (Reported) TAKES 1/2 (40MG) TABLET Magnesium Oxide 250 Mg Tablet, 250 MG PO BID, (Reported) Tamsulosin HCl 0.4 Mg Cap, 0.4 MG PO BID, (Reported) Ubidecarenone/Vit E Acetate 1 Each Capsule, 1 CAP PO DAILY, (Reported) Warfarin Sodium 3 Mg Tablet, 1 TAB PO UD HOLD COUMADIN UNTIL AFTER GALLBLADDER SURGERY THEN TAKE 3MG FOR 2 DAYS THEN TAKE 1.5MG FOR ONE DAY THEN REPEAT. Prescribed by: ALYCE FAJARDO on 02/15/19 0850 Patient Home Medication List Home Medication List Reviewed: Yes Review of Systems Review of Systems Constitutional: see HPI; No chills, No fever EENTM: No Symptoms Reported Respiratory: No Symptoms Reported Cardiovascular: See HPI Gastrointestinal: Denies Nausea, Denies Vomiting Genitourinary: No Symptoms Reported Musculoskeletal: no symptoms reported Skin: no symptoms reported Psychiatric/Neurological: No Symptoms Reported All Other Systems Reviewed Negative Unless Noted: Yes Past Drhtouj-Crrmds-Cmtqtb Hx Past Med/Social Hx: Reviewed Nursing Past Med/Soc Hx Patient Social History Alcohol Use: Denies Use Smoking Status: Former Smoker Former Smoker, Quit: Feb 26, 1988 2nd Hand Smoke Exposure: No Recent Infectious Disease Expo: No Recent Hopitalizations: No Seasonal Allergies Seasonal Allergies: No Past Medical History Surgeries: Yes (RENAL STENTS, LISA FILTER) Abdominal, Orthopedic, Renal, Vascular Surgery Respiratory: No Cardiac: Yes (renal artery stenosis status post stenting) Deep Vein Thrombosis, High Cholesterol, Hypertension, Peripheral Vascular Neurological: No Reproductive Disorders: No Sexually Transmitted Disease: No Genitourinary: Yes Benign Prostatic Hyperpl Gastrointestinal: No Musculoskeletal: Yes (Disc bulging at C5-C6) Arthritis Endocrine: No HEENT: No Loss of Vision: Denies Hearing Impairment: Denies Cancer: No Psychosocial: No Integumentary: No Blood Disorders: Yes (Factor V Leiden) Family Medical History Reviewed Nursing Family Hx Family history: Hypertension 03 FATHER 03 MOTHER 09 SISTER History of - disorder 03 FATHER (PASSED FROM ALS LIKE SYMPTOMS, BLOOD CLOTTING DISORDER ) 03 MOTHER Hypercholesterolemia 09 SISTER Myocardial infarction 03 MOTHER Neoplasm 03 MOTHER Stroke 03 MOTHER, Onset:60 years & older Hypertension, Stroke, Other Conditions/Hx Physical Exam Vital Signs Vital Signs - First Documented 03/10/21 08:59 Temp 36.5 Pulse 67 Resp 18 B/P (MAP) 241/120 (160) Pulse Ox 97 Capillary Refill : Less Than 3 Seconds Height, Weight, BMI Height: 5'8.00" Weight: 205lbs. 4.8oz. 93.904497cl; 30.00 BMI Method:Stated General Appearance: No Apparent Distress, WD/WN HEENT: PERRL/EOMI, Pharynx Normal Neck: Non Tender, Supple Respiratory: Lungs Clear, Normal Breath Sounds Cardiovascular: Regular Rate, Rhythm, No Murmur Gastrointestinal: Non Tender, Soft Extremity: Normal Range of Motion, Non Tender Neurologic/Psychiatric: Alert, Oriented x3 Skin: Normal Color, Warm/Dry Progress/Results/Core Measures Results/Orders Lab Results Laboratory Tests Test 03/10/21 09:15 03/10/21 11:00 Range/Units White Blood Count 7.2 4.3-11.0 10^3/uL Red Blood Count 5.42 4.30-5.52 10^6/uL Hemoglobin 15.6 13.3-17.7 g/dL Hematocrit 46 40-54 % Mean Corpuscular Volume 85 80-99 fL Mean Corpuscular Hemoglobin 29 25-34 pg Mean Corpuscular Hemoglobin Concent 34 32-36 g/dL Red Cell Distribution Width 13.1 10.0-14.5 % Platelet Count 215 130-400 10^3/uL Mean Platelet Volume 10.2 9.0-12.2 fL Immature Granulocyte % (Auto) 0 % Neutrophils (%) (Auto) 59 42-75 % Lymphocytes (%) (Auto) 29 12-44 % Monocytes (%) (Auto) 8 0-12 % Eosinophils (%) (Auto) 2 0-10 % Basophils (%) (Auto) 2 0-10 % Neutrophils # (Auto) 4.3 1.8-7.8 10^3/uL Lymphocytes # (Auto) 2.1 1.0-4.0 10^3/uL Monocytes # (Auto) 0.6 0.0-1.0 10^3/uL Eosinophils # (Auto) 0.2 0.0-0.3 10^3/uL Basophils # (Auto) 0.1 0.0-0.1 10^3/uL Immature Granulocyte # (Auto) 0.0 0.0-0.1 10^3/uL Prothrombin Time 26.1 H 12.2-14.7 SEC INR Comment 2.4 H 0.8-1.4 Sodium Level 142 135-145 MMOL/L Potassium Level 3.9 3.6-5.0 MMOL/L Chloride Level 106 98-107 MMOL/L Carbon Dioxide Level 24 21-32 MMOL/L Anion Gap 12 5-14 MMOL/L Blood Urea Nitrogen 11 7-18 MG/DL Creatinine 1.21 0.60-1.30 MG/DL Estimat Glomerular Filtration Rate 59 BUN/Creatinine Ratio 9 Glucose Level 149 H 70-105 MG/DL Calcium Level 8.8 8.5-10.1 MG/DL Corrected Calcium 9.0 8.5-10.1 MG/DL Total Bilirubin 0.3 0.1-1.0 MG/DL Aspartate Amino Transf (AST/SGOT) 16 5-34 U/L Alanine Aminotransferase (ALT/SGPT) 16 0-55 U/L Alkaline Phosphatase 124 40-136 U/L Troponin I < 0.028 < 0.028 <0.028 NG/ML Total Protein 7.0 6.4-8.2 GM/DL Albumin 3.8 3.2-4.5 GM/DL My Orders Orders - ALVARO DE LA TORRE MD Ed Iv/Invasive Line Start (03/10/21 09:18) Ekg Tracing (03/10/21 09:18) Cbc With Automated Diff (03/10/21 09:18) Comprehensive Metabolic Panel (03/10/21 09:18) Troponin I (03/10/21 09:18) Hydralazine Injection (Apresoline Inject (03/10/21 09:30) Protime With Inr (03/10/21 09:19) Troponin I (03/10/21 11:00) Hydralazine Injection (Apresoline Inject (03/10/21 11:15) Medications Given in ED Current Medications Medications Dose Ordered Sig/Maynor Route Start Time Stop Time Status Last Admin Dose Admin Hydralazine HCl 10 mg ONCE ONCE IV 03/10/21 09:30 03/10/21 09:31 DC 03/10/21 09:22 10 MG Hydralazine HCl 10 mg ONCE ONCE IV 03/10/21 11:15 03/10/21 11:16 DC 03/10/21 11:14 10 MG Vital Signs/I&O 03/10/21 08:59 Temp 36.5 Pulse 67 Resp 18 B/P (MAP) 241/120 (160) Pulse Ox 97 Blood Pressure Mean: 160 Progress Progress Note : Progress Note Seen and evaluated. IV, labs, EKG ordered. Hydralazine 10 mg IV ordered. Monitor patient. 1030: Blood pressure down to 170 systolic and patient is without chest pain. Initial set of troponin negative. INR therapeutic. We will repeat troponin at 1100 and reevaluate. Patient is in agreement with plan. Monitor patient. 1149: Patient did have repeat hydralazine 10 mg IV. Blood pressure currently 140s systolic and he is doing much better. Without chest pain. Troponin negative on both sets. He will follow-up with Dr. Fajardo and Dr. Reddy. I will initiate amlodipine 5 mg daily. He has breakthrough amlodipine 10 tablets but only has a few of those. He will discuss this with his doctor as well. Discharged home with return precautions. Patient verbalized understanding of instructions and agreement with plan. Initial ECG Impression Date: Mar 10, 2021 Initial ECG Impression Time: 09:21 Initial ECG Rate: 62 Initial ECG Rhythm: Normal Sinus Initial ECG Comparisson: Unchanged Comment Sinus rhythm with normal axis. No evidence of ST elevation SD. Similar to previous of 08/24/2020. Interpreted by me. Departure Impression Primary Impression: Uncontrolled hypertension Disposition: 01 HOME, SELF-CARE Condition: Improved Departure-Patient Inst. Decision time for Depature: 11:50 Referrals: ALYCE FAJARDO MD (PCP/Family) Primary Care Physician Patient Instructions: High Blood Pressure ED, High Blood Pressure Emergencies Add. Discharge Instructions: All discharge instructions reviewed with patient and/or family. Voiced understanding. Follow-up with Dr. Fajardo and Dr. REDDY for recheck and further evaluation. You should start the amlodipine 5 mg 1 tablet every day. You may take a second dose of up to 5 mg daily for blood pressure greater than 160 mg Hg for the top number. Monitor and reduce salt in your diet. Return for worse pain, fever, vomiting, weakness, breathing problems, chest pain or other concerns as needed. Scripts Amlodipine Besylate (Amlodipine Besylate) 5 Mg Tablet 5 MG PO DAILY for 30 Days, #30 TAB 0 Refills Prov: ALVARO DE LA TORRE MD 03/10/21 Copy Copies To 1: ALYCE FAJARDO MD Copies To 2: SUNNY REDDY MD FACP FACC CCDS ALVARO DE LA TORRE MD Mar 10, 2021 10:34
[2021-03-10] MEDS ORDERED: AMLO-250 PO (11:49)
[2021-03-10 11:59] VITALS: BP 147/72
[2021-03-11] MEDS ORDERED: WARF-47 PO ×2 (08:10)
[2021-03-11] MEDS ORDERED: CARV12.53 PO ×3 (08:10→14:31)
[2021-03-11] MEDS ORDERED: UBID100C17 PO ×2 (14:31)
[2021-03-11] MEDS ORDERED: AMLO-250 PO ×2 (14:31)
[2021-03-11] MEDS ORDERED: L.AC1CAP6 PO ×2 (14:31)
[2021-03-12] MEDS ORDERED: CARV12.53 PO ×2 (18:21)
[2021-03-12] MEDS ORDERED: CLOP75TA28 PO ×2 (18:21)
[2021-03-12] MEDS ORDERED: AMLO-251 PO ×2 (18:21)
== END 2021-03-10 12:00 | disposition home or self-care (01) ==
LOC: EDUNIT# 08:32 → ER 08:34
DX: I10 Essential (primary) hypertension (principal); E78.00 Pure hypercholesterolemia, unspecified; N40.0 Benign prostatic hyperplasia without lower urinary tract symptoms; Z86.718 Personal history of other venous thrombosis and embolism; Z87.891 Personal history of nicotine dependence; Z79.899 Other long term (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; Z79.01 Long term (current) use of anticoagulants
CPT/HCPCS: 36415; 80053; 84484; 85025; 85610; 93005

== ENCOUNTER 2021-03-10 16:32 | Inpatient (IN) | payer MEDICARE ==
[~2021-03-10] VITALS: Ht 172 cm; Wt 92.4 kg
[2021-03-10] MEDS ORDERED: niCARdipine IV 50 MG in NS (IVPB) 240 ML IV SCH (17:00)
--- NOTE | 2021-03-10 17:01 | ED Neurological Problem ---
General Chief Complaint: Cardiac/General Problems Stated Complaint: ELEV BP/L SIDE NUMBNESS Source: patient Exam Limitations: no limitations History of Present Illness Date Seen by Provider: Mar 10, 2021 Time Seen by Provider: 16:48 Initial Comments Here with report of left side facial numbness and left arm numbness that started after he got home. He was seen earlier today for uncontrolled hypertension and that was improved at time of discharge. After getting home, his blood pressure went down to 113 systolic and he felt a little tired. Blood pressure subsequently went up to 180s to 200s systolic and he began having some chest tightness as well as left facial numbness and left arm numbness. He called back here and was instructed to come to the ED. Denies vision problems. States he feels a little weak overall. Denies persistent chest pain. Denies nausea, vomiting, diarrhea or diaphoresis. Denies muscle weakness. Timing/Duration: 1 hour, episodic Severity: moderate Associated Symptoms: No confusion, No fatigue, No fever/chills, No nausea/vomiting; paresthesia; No seizures, No slurred speech, No tingling in legs/feet, No trouble walking, No vision changes; weakness Allergies and Home Medications Allergies Coded Allergies: aspirin (Unverified Allergy, Mild, HIVES, 12/23/09) Home Medications Acetaminophen 650 Mg Tablet.er, 1,300 MG PO BID PRN for PAIN-MILD, (Reported) Amlodipine Besylate 10 Mg Tablet, 10 MG PO DAILY Prescribed by: ALVARO DE LA TORRE on 08/24/20 1213 Amlodipine Besylate 5 Mg Tablet, 5 MG PO DAILY Prescribed by: ALVARO DE LA TORRE on 03/10/21 1149 Atorvastatin Calcium 40 Mg Tablet, 40 MG PO HS Prescribed by: ALYCE FAJARDO on 02/15/19 0850 Carvedilol 12.5 Mg Tablet, 12.5 MG PO BID, (Reported) Cholecalciferol (Vitamin D3) 5,000 Unit Capsule, 5,000 UNIT PO DAILY, (Reported) Clopidogrel Bisulfate 75 Mg Tablet, 75 MG PO DAILY HOLD UNTIL AFTER GALLBLADDER SURGERY Prescribed by: ALYCE FAJARDO on 02/15/19 0850 Doxazosin Mesylate 4 Mg Tablet, 4 MG PO Q8HR Prescribed by: ALYCE FAJARDO on 02/15/19 0850 Enoxaparin Sodium 40 Mg/0.4 Ml Syringe, 40 MG SC Q24H ONE DOSE DAILY - HOSPITAL GAVE WEDNESDAY DOSE, HOLD ON WEDNESDAY, THEN TAKE DAILY POST OPERATIVELY FOR BRIDGING COUMADIN Prescribed by: ALYCE FAJARDO on 02/15/19849 Hydralazine HCl 25 Mg Tablet, 50 MG PO Q8HR Prescribed by: ALYCE FAJARDO on 02/15/19 0850 Hydrocodone Bit/Acetaminophen 1 Ea Tablet, 1 EACH PO Q4H PRN for PAIN-MODERATE Prescribed by: MARTY ALCALA on 02/16/191937 Lisinopril 40 Mg Tablet, 20 MG PO BID, (Reported) TAKES 1/2 (40MG) TABLET Magnesium Oxide 250 Mg Tablet, 250 MG PO BID, (Reported) Tamsulosin HCl 0.4 Mg Cap, 0.4 MG PO BID, (Reported) Ubidecarenone/Vit E Acetate 1 Each Capsule, 1 CAP PO DAILY, (Reported) Warfarin Sodium 3 Mg Tablet, 1 TAB PO UD HOLD COUMADIN UNTIL AFTER GALLBLADDER SURGERY THEN TAKE 3MG FOR 2 DAYS THEN TAKE 1.5MG FOR ONE DAY THEN REPEAT. Prescribed by: ALYCE FAJARDO on 02/15/19 0850 Patient Home Medication List Home Medication List Reviewed: Yes Review of Systems Review of Systems Constitutional: see HPI; No chills, No fever Eyes: No Symptoms Reported Ears, Nose, Mouth, Throat: denies mouth pain; throat pain Respiratory: No cough, No short of breath Cardiovascular: no symptoms reported Gastrointestinal: No abdominal pain, No nausea, No vomiting Musculoskeletal: no symptoms reported Skin: no symptoms reported Psychiatric/Neurological: See HPI All Other Systems Reviewed Negative Unless Noted: Yes Past Gkbcpnw-Zzkbnp-Xtgksm Hx Past Med/Social Hx: Reviewed Nursing Past Med/Soc Hx Patient Social History Alcohol Use: Denies Use Smoking Status: Former Smoker Former Smoker, Quit: Feb 26, 1988 2nd Hand Smoke Exposure: No Recent Hopitalizations: No Seasonal Allergies Seasonal Allergies: No Past Medical History Surgeries: Yes (RENAL STENTS, LISA FILTER) Abdominal, Orthopedic, Renal, Vascular Surgery Respiratory: No Cardiac: Yes (renal artery stenosis status post stenting) Deep Vein Thrombosis, High Cholesterol, Hypertension, Peripheral Vascular Neurological: No Reproductive Disorders: No Sexually Transmitted Disease: No Genitourinary: Yes Benign Prostatic Hyperpl Gastrointestinal: No Musculoskeletal: Yes (Disc bulging at C5-C6) Arthritis Endocrine: No HEENT: No Loss of Vision: Denies Hearing Impairment: Denies Cancer: No Psychosocial: No Integumentary: No Blood Disorders: Yes (Factor V Leiden) Family Medical History Reviewed Nursing Family Hx Family history: Hypertension 03 FATHER 03 MOTHER 09 SISTER History of - disorder 03 FATHER (PASSED FROM ALS LIKE SYMPTOMS, BLOOD CLOTTING DISORDER ) 03 MOTHER Hypercholesterolemia 09 SISTER Myocardial infarction 03 MOTHER Neoplasm 03 MOTHER Stroke 03 MOTHER, Onset:60 years & older Hypertension, Stroke, Other Conditions/Hx Physical Exam Vital Signs Vital Signs - First Documented 03/10/21 16:50 Temp 36.7 Pulse 89 Resp 20 B/P (MAP) 202/97 (132) Pulse Ox 97 Capillary Refill : Height, Weight, BMI Height: 5'8.00" Weight: 205lbs. 4.8oz. 93.746063hw; 30.00 BMI Method:Stated General Appearance: WD/WN, no apparent distress HEENT: PERRL/EOMI, pharynx normal Neck: non-tender, full range of motion, supple, normal inspection Respiratory: lungs clear, normal breath sounds Cardiovascular: regular rate, rhythm, no murmur Gastrointestinal: non tender, soft Back: normal inspection, no CVA tenderness, no vertebral tenderness Extremities: non-tender, normal inspection Neurologic/Psychiatric: alert, oriented x 3 Crainal Nerves: normal hearing, normal speech, PERRL Coordination/Gait: normal finger to nose, normal gait Motor/Sensory: no motor deficit, no pronator drift, sensory deficit (Slight left facial numbness noted) Skin: normal color, warm/dry Stroke Stroke Thrombolytic Exclusion Age 18 or Over: Yes Acute intenal hemorrhage: No History of CVA: No Uncontrolled Coagulation Defec: Yes Intracranial Hemorrhage: No Severe Hypertension: Yes GI or Bleed: No Subarachnoid Hemorrhage: No Intracranial Neoplasm/Aneurysm: No Oral Anticoagulants: Yes Surgery or Trauma: No Puncture of Non-Compressible V: No Recent CPR: No Diabetic Hemorrhagic Retinopat: No Organ Biopsy: No Recent Obstetric Delivery: No Glucose: No Significant Hepatic Dysfunctio: No NIH Stoke Scale >22: No Bacterial Endocarditis: No Pericarditis: No Improving Symptoms: No Platelets: No Progress/Results/Core Measures Results/Orders Lab Results Laboratory Tests Test 03/10/21 16:50 Range/Units Sodium Level 140 135-145 MMOL/L Potassium Level 3.7 3.6-5.0 MMOL/L Chloride Level 108 H 98-107 MMOL/L Carbon Dioxide Level 22 21-32 MMOL/L Anion Gap 10 5-14 MMOL/L Blood Urea Nitrogen 12 7-18 MG/DL Creatinine 1.17 0.60-1.30 MG/DL Estimat Glomerular Filtration Rate > 60 BUN/Creatinine Ratio 10 Glucose Level 93 70-105 MG/DL Calcium Level 8.8 8.5-10.1 MG/DL Corrected Calcium 8.9 8.5-10.1 MG/DL Total Bilirubin 0.5 0.1-1.0 MG/DL Aspartate Amino Transf (AST/SGOT) 16 5-34 U/L Alanine Aminotransferase (ALT/SGPT) 16 0-55 U/L Alkaline Phosphatase 122 40-136 U/L Troponin I < 0.028 <0.028 NG/ML Total Protein 7.1 6.4-8.2 GM/DL Albumin 3.9 3.2-4.5 GM/DL My Orders Orders - ALVARO DE LA TORRE MD Comprehensive Metabolic Panel (03/10/21 16:51) Fibrin Degradation Products (03/10/21 16:51) Troponin I (03/10/21 16:51) Chest 1 View, Ap/Pa Only (03/10/21 16:51) Ekg Tracing (03/10/21 16:51) Nothing By Mouth (03/10/21 Dinner) Ed Iv/Invasive Line Start (03/10/21 16:51) Vital Signs Stroke Patient Q15M (03/10/21 16:51) Ct Head Wo-R/O Stroke (03/10/21 16:51) Intake & Output 06,14,22 (03/10/21 16:51) Nicardipine Iv (Cardene I.V.) (03/10/21 17:00) Monitor-Rhythm Ecg Trace Only (03/10/21 16:51) Dysphagia Screening Tool (03/10/21 16:51) Lipid Panel (03/11/21 06:00) Vital Signs/I&O 03/10/21 16:50 Temp 36.7 Pulse 89 Resp 20 B/P (MAP) 202/97 (132) Pulse Ox 97 Progress Progress Note : Progress Note Seen and evaluated. Stroke order set initiated and we will get repeat chemistry but otherwise labs from earlier today will be used. CT head ordered. Stroke scale only 1 on the scale with facial numbness on the left. Blood pressure 200 systolic. Given that there is concern about hypertensive encephalopathy, we will initiate Cardene drip to decrease map by 20%. Is currently 146 so we will decrease to 110-120 range for the map. 1705: I did discuss the case with Dr. Fajardo and she accepts patient for admission, inpatient status to the ICU. Consult cardiology. His primary is Dr. Reddy. 1805: I have discussed the case with the eICU team. They will see him in consult. Symptoms are currently resolved and he is still on Cardene drip. We will continue this in the ICU. Repeat troponin negative. CT head negative. I believe this is related to hypertensive encephalopathy/labile hypertension. Patient is stable and much better currently. Admit, inpatient status. Patient agrees to plan. Consult Dr. 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 Initial ECG Impression Date: Mar 10, 2021 Initial ECG Impression Time: 16:58 Initial ECG Rate: 79 Initial ECG Rhythm: Normal Sinus Initial ECG Impression: Normal Comment Sinus rhythm with normal axis. No evidence of ST elevation PR. Similar to the one done previous earlier today. Interpreted by me. Diagnostic Imaging Diagonstic Imaging: CT Plain Films/CT/US/NM/MRI: head Comments [facility], [place] NAME: AMBER MONTEIRO [facility] REC#: [id number] PT STATUS: REG ER : 1945 PHYSICIAN: ALVARO DE LA TORRE MD ADMIT DATE: 03/10/21/ER Draft Date of Exam:03/10/21 CT HEAD WO-R/O STROKE PROCEDURE: CT head wo r/o stroke. TECHNIQUE: Multiple contiguous axial images were obtained through the brain without the use of intravenous contrast. Auto Exposure Controls were utilized during the CT exam to meet ALARA standards for radiation dose reduction. INDICATION: Hypertension with left arm and left face numbness. COMPARISONS: 04/14/2018 FINDINGS: Midline structures are not displaced. Lateral, 3rd, and 4th ventricles are normal in size, shape and anatomic position. There is no mass, mass effect, hydrocephalus or hemorrhage. Khalil-white differentiation is normal. There is no sulcal effacement. There are no abnormal extra-axial fluid collections or hemorrhage. There is calcific atherosclerosis within the carotid siphons. Basilar cisterns appear normal. Sinuses, orbits and mastoid air cells are normal. Bone windows show no calvarial changes. IMPRESSION: Unremarkable nonenhanced CT brain. There is calcific atherosclerosis within the carotid siphons. Dictated on workstation # [id number] Dict: 03/10/21 1737 Trans: 03/10/21 1742 [id number] Interpreted by: SHAWNA CARVAJAL MD Electronically signed by: [facility] Imaging: Xray Plain Films/CT/US/NM/MRI: chest Comments [facility] [place] NAME: AMBER MONTEIRO [facility] REC#: [id number] PT STATUS: REG ER : 1945 PHYSICIAN: ALVARO DE LA TORRE MD ADMIT DATE: 03/10/21/ER Draft Date of Exam:03/10/21 CHEST 1 VIEW, AP/PA ONLY INDICATION: 75-year-old male with hypertension, left arm and face numbness. COMPARISONS: 08/24/2020. FINDINGS: Single view of the chest shows normal heart, pulmonary vasculature, pleura, and diaphragms with no focal opacities. Soft tissues and bony thorax are normal. IMPRESSION: No acute cardiopulmonary changes. Dictated on workstation # [id number] Dict: 03/10/21 1743 Trans: 03/10/21 1745 [id number] Interpreted by: SHAWNA CARVAJAL MD Electronically signed by: Departure Communication (Admissions) Time/Spoke to Admitting Phy: 17:05 Time/Spoke to Consulting Phy: 18:03 Impression Primary Impression: Hypertensive encephalopathy Disposition: ADMITTED INPATIENT Condition: Stable Admissions Decision to Admit Reason: Admit from ER (General) Decision to Admit/Date: Mar 10, 2021 Time/Decision to Admit Time: 17:05 Departure-Patient Inst. Referrals: ALYCE FAJARDO MD (PCP/Family) Primary Care Physician ALVARO DE LA TORRE MD Mar 10, 2021 17:01
[2021-03-10 17:12] LABS: ALBUMIN 3.9 GM/DL (3.2-4.5); CHLORIDE 108 MMOL/L (98-107); POTASSIUM 3.7 MMOL/L (3.6-5.0); SODIUM 140 MMOL/L (135-145)
[2021-03-10 17:13] LABS: CALCIUM 8.8 MG/DL (8.5-10.1)
[2021-03-10 17:14] LABS: GLUCOSE 93 MG/DL (70-105); TOTAL PROTEIN 7.1 GM/DL (6.4-8.2)
[2021-03-10 17:15] LABS: CARBON DIOXIDE 22 MMOL/L (21-32)
[2021-03-10 17:16] LABS: BILIRUBIN,TOTAL 0.5 MG/DL (0.1-1.0)
[2021-03-10 17:18] LABS: ALKALINE PHOSPHATASE 122 U/L (40-136); CREATININE SERUM 1.17 MG/DL (0.60-1.30); GFR ESTIMATED > 60
[2021-03-10 17:19] LABS: BUN/CREATININE RATIO 10
[2021-03-10 17:21] LABS: ALANINE AMINOTRANSFERASE 16 U/L (0-55)
--- NOTE | 2021-03-10 17:43 | Diagnostic Imaging Report ---
PROCEDURE: CT head wo r/o stroke. TECHNIQUE: Multiple contiguous axial images were obtained through the brain without the use of intravenous contrast. Auto Exposure Controls were utilized during the CT exam to meet ALARA standards for radiation dose reduction. INDICATION: Hypertension with left arm and left face numbness. COMPARISONS: 04/14/2018 FINDINGS: Midline structures are not displaced. Lateral, 3rd, and 4th ventricles are normal in size, shape and anatomic position. There is no mass, mass effect, hydrocephalus or hemorrhage. Khalil-white differentiation is normal. There is no sulcal effacement. There are no abnormal extra-axial fluid collections or hemorrhage. There is calcific atherosclerosis within the carotid siphons. Basilar cisterns appear normal. Sinuses, orbits and mastoid air cells are normal. Bone windows show no calvarial changes. IMPRESSION: Unremarkable nonenhanced CT brain. There is calcific atherosclerosis within the carotid siphons. Dictated by: Dictated on workstation # [id number]
--- NOTE | 2021-03-10 17:46 | Diagnostic Imaging Report ---
INDICATION: 75-year-old male with hypertension, left arm and face numbness. COMPARISONS: 08/24/2020. FINDINGS: Single view of the chest shows normal heart, pulmonary vasculature, pleura, and diaphragms with no focal opacities. Soft tissues and bony thorax are normal. IMPRESSION: No acute cardiopulmonary changes. Dictated by: Dictated on workstation # [id number]
[2021-03-10] MEDS ORDERED: ONDANSETRON 4 MG/2 ML (SDV) Z0FRAN IVP PRN (18:45)
[2021-03-10] MEDS ORDERED: CATHETER FLUSH 10 ML SYR IV PRN (18:45)
[2021-03-10] MEDS ORDERED: ENOXAPARIN 40 MG/0.4 ML (LOVENOX) SYR SC SCH (19:15)
--- NOTE | 2021-03-10 19:26 | Tele-ICU Consult ---
Progress Note Date of Service 03/10/2021 18:52 HPI/Events of Note eICU Admiited to ICU on 2nd visit to ED in 12 hour period for uncontrolled HTN and IV anti- HTN control. . Similar admission in Jul 2020 - on multiple oral meds, but unclear if e is taking them as prescribed. Fam Hx + for HTN and clotting disorder in father acc. to records- . For this reason , when he presented to ED with chest pain, headache, L facial tingling/numbness and uncontrolled hypertesnion, he was both scanned and admitted for better htn control. Per video- pt is alert w/o complaint, BP 176/88 HR 82 NSR, sats 98% on RA CT head: MPRESSION: Unremarkable nonenhanced CT brain. There is calcific atherosclerosis within the carotid siphons. CXR- neg Trop not elevated <o.o28 Creat 1.17 CBC wbc 7200 Hgb 15.6 plt 215,000 Has orders for IV BP control with nicardipine, follow up labs, diet, cardiology consult . Will add lovenox 40 mg subcut daily for DVT prophylaxis. Added UA, urinary drug screen. D/W bedisde nursing. Interventions Major-Hypertension - evaluation and management Intermediate-Communication with other healthcare providers and/or family, Diagnostic test evaluation, Medication change / dose adjustment Focused Exam Height, Weight, BMI Height: 5'8.00" Weight: 205lbs. 4.8oz. 93.015795ma; 30.00 BMI Method:Stated ADIN YAO DO Mar 10, 2021 19:26
[2021-03-10] MEDS: CATHETER FLUSH 10 ML SYR IV SCH (21:59)
[2021-03-10 22:05] LABS: BILIRUBIN,URINE NEGATIVE (NEGATIVE); CLARITY,URINE CLEAR; COLOR,URINE YELLOW; GLUCOSE, URINE (UA) NEGATIVE (NEGATIVE); KETONES,URINE NEGATIVE (NEGATIVE); LEUKOCYTE ESTERASE ,URINE NEGATIVE (NEGATIVE); NITRITE,URINE NEGATIVE (NEGATIVE); PH,URINE 5.5 (5-9); PROTEIN,URINE NEGATIVE (NEGATIVE)
[2021-03-10 22:12] LABS: BACTERIA,URINE TRACE /HPF; WBC,URINE RARE /HPF
[2021-03-10 22:15] LABS: AMPHETAMINE SCREEN, URINE NEGATIVE (NEGATIVE); BARBITURATE SCREEN URINE NEGATIVE (NEGATIVE); BENZODIAZEPINES SCREEN URINE NEGATIVE (NEGATIVE); CANNABINOID SCREEN, URINE NEGATIVE (NEGATIVE); COCAINE SCREEN URINE NEGATIVE (NEGATIVE); METHADONE STAT NEGATIVE (NEGATIVE); METHAMPHETAMINE SCREEN URINE S NEGATIVE (NEGATIVE); OPIATE SCREEN URINE NEGATIVE (NEGATIVE); OXYCODONE STAT NEGATIVE (NEGATIVE); PROPOXYPHENE STAT NEGATIVE (NEGATIVE); TRICYCLIC ANTIDEPRESSANTS SCRE NEGATIVE (NEGATIVE)
[2021-03-11] MEDS: niCARdipine 50 MG/NS 250 ML IV DRIP IV SCH ×2 (04:33)
[2021-03-11 04:46] LABS: BASOPHILS # (AUTO) 0.1 10^3/uL (0.0-0.1); BASOPHILS % (AUTO) 1 % (0-10); EOSINOPHILS # (AUTO) 0.1 10^3/uL (0.0-0.3); EOSINOPHILS % (AUTO) 1 % (0-10); HEMATOCRIT 47 % (40-54); HEMOGLOBIN 15.9 g/dL (13.3-17.7); LYMPHOCYTES # (AUTO) 2.2 10^3/uL (1.0-4.0); LYMPHOCYTES % (AUTO) 20 % (12-44); MEAN CORPUSCULAR HEMOGLOBIN 29 pg (25-34); MEAN CORPUSCULAR HGB CONC 34 g/dL (32-36); MEAN CORPUSCULAR VOLUME 85 fL (80-99); MONOCYTES # (AUTO) 0.8 10^3/uL (0.0-1.0); MONOCYTES % (AUTO) 8 % (0-12); NEUTROPHILS # (AUTO) 7.7 10^3/uL (1.8-7.8); NEUTROPHILS % (AUTO) 70 % (42-75); PLATELET COUNT 219 10^3/uL (130-400)
[2021-03-11 05:03] LABS: POTASSIUM 3.7 MMOL/L (3.6-5.0)
[2021-03-11 05:04] LABS: CALCIUM 8.8 MG/DL (8.5-10.1)
[2021-03-11 05:09] LABS: CREATININE SERUM 1.2 MG/DL (0.60-1.30); PHOSPHORUS 2.7 MG/DL (2.3-4.7)
[2021-03-11 05:11] LABS: MAGNESIUM 1.8 MG/DL (1.6-2.4)
[2021-03-11] MEDS: POTASSIUM CL 10MEQ/50ML IVPB 50 ML IV SCH (05:56)
[2021-03-11] MEDS: MAGNESIUM 1 GM/100 ML IVPB 100 ML IV SCH (05:56)
[2021-03-11] MEDS: KCL 20 MEQ TAB (K-DUR) PO SCH (05:56)
[2021-03-11] MEDS: CATHETER FLUSH 10 ML SYR IV SCH ×3 (06:04→22:42)
--- NOTE | 2021-03-11 07:54 | Consultation-Cardiology ---
HPI-Cardiology Cardiology Consultation: Date of Consultation 03/11/21 Time Seen by a Provider: 08:20 Date of Admission 03-10-21 Attending Physician Mahnaz Fajardo MD Admitting Physician Mahnaz Fajardo MD Consulting Physician Patel Reddy MD HPI: Chief Complaint: Uncontrolled HTN Mr. Gupta is a 75 yr old male admitted to ICU 8 with uncontrolled hypertension. He reports he woke up early yesterday morning to use the restroom at home and felt "unwell"; mild SOB, chest pressure, heaviness, but he was able to go back to sleep. He reports when he woke up he checked his BP and noted it to be 220's systolic. He then came to the ED and BP began to improve. He states he went back home and began to feel unwell again. He states he developed facial numbness and discomfort in his left arm. He states this persisted for about 1 1/2 hours. He reports he came back to the to be evaluated. He reports feeling unsteady at the time. He states his BP was again elevated. He reports at home his BP is typically 130's-140's systolic. He states he has not missed any medications at home. He reports he is on warfarin d/t Factor V Leiden which is followed by his PCP. He reports he has a IVC filter in place. He states his symptoms have resolved at this time. No c/o fever or chills. No c/o n/v. He reports chronic diarrhea which has been present for years. Review of Systems-Cardiology Review of Systems Constitutional: As described under HPI; No chills, No fever Eyes: No vision change Ears/Nose/Throat: No epistaxis, No recent hearing loss Respiratory: As described under HPI Cardiovascular: As described under HPI Gastrointestinal: As described under HPI Genitourinary: No dysuria, No hematuria Musculoskeletal: no symptoms reported All Other Systems Reviewed Negative Unless Noted: Yes MIV-Lexbrf-Blvcvl Hx Patient Social History Smoking Status: Former Smoker 2nd Hand Smoke Exposure: No Have you traveled recently?: No Alcohol Use?: No Past Medical History PMH As described under Assessment. Family Medical History Family Medical History: Reports family h/o father having HTN. Mother having HTN and CVA. Sister having HTN. Family History: Family history: Hypertension 03 FATHER 03 MOTHER 09 SISTER History of - disorder 03 FATHER (PASSED FROM ALS LIKE SYMPTOMS, BLOOD CLOTTING DISORDER ) 03 MOTHER Hypercholesterolemia 09 SISTER Myocardial infarction 03 MOTHER Neoplasm 03 MOTHER Stroke 03 MOTHER, Onset:60 years & older Allergies and Home Medications Allergies Coded Allergies: aspirin (Unverified Allergy, Mild, HIVES, 12/23/09) Home Medications Acetaminophen 650 Mg Tablet.er, 1,300 MG PO BID PRN for PAIN-MILD, (Reported) Last Action: Reviewed Amlodipine Besylate 5 Mg Tablet, 5 MG PO DAILY, (Reported) Last Action: Reviewed Carvedilol 12.5 Mg Tablet, 6.25 MG PO BID, (Reported) TAKES OF A 12.5MG TAB Last Action: Reviewed L.acidoph & Paracasei,B.lactis 1 Each Capsule, 1 EACH PO BID, (Reported) Last Action: Reviewed Lisinopril 40 Mg Tablet, 20 MG PO BID, (Reported) TAKES 1/2 (40MG) TABLET Last Action: Reviewed Magnesium Oxide 250 Mg Tablet, 250 MG PO BID, (Reported) Last Action: Reviewed Tamsulosin HCl 0.4 Mg Cap, 0.4 MG PO BID, (Reported) Last Action: Reviewed Ubidecarenone 100 Mg Capsule, 100 MG PO DAILY, (Reported) Last Action: Reviewed Warfarin Sodium 2 Mg Tablet, 1 MG PO BID, (Reported) TAKES OF A 2MG TAB Last Action: Reviewed Patient Home Medication List Home Medication List Reviewed: Yes Physical Exam-Cardiology Physical Exam Vital Signs/I&O 03/11/21 03/11/21 03/11/21 03/11/21 05:00 06:00 07:00 07:00 Pulse 70 67 74 73 Resp 13 19 18 B/P (MAP) 149/81 (103) 152/85 (107) 183/93 (123) Pulse Ox 95 94 95 O2 Delivery Room Air Room Air Room Air 03/11/21 03/11/21 03/11/21 03/11/21 07:22 08:00 08:00 11:00 Temp 36.5 Pulse 75 Resp 18 B/P (MAP) 176/93 (120) 175/100 (125) Pulse Ox 93 O2 Delivery Room Air Room Air Room Air 03/11/21 03/11/21 03/11/21 03/11/21 12:00 12:24 13:00 14:00 Pulse 71 67 64 68 Resp 24 20 32 B/P (MAP) 132/75 (94) 133/67 (89) 134/77 (96) Pulse Ox 95 94 96 O2 Delivery Room Air Room Air Room Air 03/11/21 03/11/21 15:00 16:00 Pulse 71 64 Resp 16 14 B/P (MAP) 138/81 (100) 135/78 (97) Pulse Ox 96 94 O2 Delivery Room Air Room Air 03/11/21 00:00 Intake Total 150 ml Output Total 450 ml Balance -300 ml Capillary Refill : Less Than 3 Seconds Constitutional: AAO x 3, well-developed, well-nourished HEENT: PERRL, hearing is well preserved, oral hygience is good Neck: carotid bruit (right carotid bruit), carotid pulses are 2 + bilaterally Respiratory: No accessory muscle use, No respiratory distress; chest expansion is symmetric, chest is bilaterally symmetric, lungs clear to auscultation Cardiovascular: regular rate-rhythm; No JVD; S1 and S2 Gastrointestinal: No tender; soft, round, audible bowel sounds Extremities: no lower extremity edema bilateral Neurologic/Psychiatric: grossly intact (moves all extremities) Skin: No rash on exposed areas, No ulcerations on exposed areas Data Review Labs Laboratory Tests 03/10/21 16:50: Sodium Level 140, Potassium Level 3.7, Chloride Level 108H, Carbon Dioxide Level 22, Anion Gap 10, Blood Urea Nitrogen 12, Creatinine 1.17, Estimat Glomerular Filtration Rate > 60, BUN/Creatinine Ratio 10, Glucose Level 93, Calcium Level 8.8, Corrected Calcium 8.9, Total Bilirubin 0.5, Aspartate Amino Transf (AST/SGOT) 16, Alanine Aminotransferase (ALT/SGPT) 16, Alkaline Phosphatase 122, Troponin I < 0.028, Total Protein 7.1, Albumin 3.9 03/10/21 21:00: Urine Color YELLOW, Urine Clarity CLEAR, Urine pH 5.5, Urine Specific [place] 1.020, Urine Protein NEGATIVE, Urine Glucose (UA) NEGATIVE, Urine Ketones NEGATIVE, Urine Nitrite NEGATIVE, Urine Bilirubin NEGATIVE, Urine Urobilinogen 0.2, Urine Leukocyte Esterase NEGATIVE, Urine RBC (Auto) NEGATIVE, Urine RBC NONE, Urine WBC RARE, Urine Crystals NONE, Urine Bacteria TRACE, Urine Casts NONE, Urine Mucus NEGATIVE, Urine Culture Indicated NO 03/10/21 21:55: Urine Opiates Screen NEGATIVE, Urine Oxycodone Screen NEGATIVE, Urine Methadone Screen NEGATIVE, Urine Propoxyphene Screen NEGATIVE, Urine Barbiturates Screen NEGATIVE, Ur Tricyclic Antidepressants Screen NEGATIVE, Urine Phencyclidine Screen NEGATIVE, Urine Amphetamines Screen NEGATIVE, Urine Methamphetamines Screen NEGATIVE, Urine Benzodiazepines Screen NEGATIVE, Urine Cocaine Screen NEGATIVE, Urine Cannabinoids Screen NEGATIVE 03/11/21 03:30: Sodium Level 139, Potassium Level 3.7, Chloride Level 104, Carbon Dioxide Level 23, Anion Gap 12, Blood Urea Nitrogen 13, Creatinine 1.20, Estimat Glomerular Filtration Rate 59, BUN/Creatinine Ratio 11, Glucose Level 120H, Calcium Level 8.8, White Blood Count 11.0, Red Blood Count 5.53H, Hemoglobin 15.9, Hematocrit 47, Mean Corpuscular Volume 85, Mean Corpuscular Hemoglobin 29, Mean Corpuscular Hemoglobin Concent 34, Red Cell Distribution Width 13.2, Platelet Count 219, Mean Platelet Volume 11.0, Immature Granulocyte % (Auto) 0, Neutrophils (%) (Auto) 70, Lymphocytes (%) (Auto) 20, Monocytes (%) (Auto) 8, Eosinophils (%) (Auto) 1, Basophils (%) (Auto) 1, Neutrophils # (Auto) 7.7, Lymphocytes # (Auto) 2.2, Monocytes # (Auto) 0.8, Eosinophils # (Auto) 0.1, Basophils # (Auto) 0.1, Immature Granulocyte # (Auto) 0.0, Phosphorus Level 2.7, Magnesium Level 1.8, Triglycerides Level 587H, Cholesterol Level 218H, LDL Cholesterol Direct 93, VLDL Cholesterol 117H, HDL Cholesterol 32L Microbiology 03/10/21 MRSA Screen - Final, Complete MRSA not isolated Radiology NAME: AMBER GUPTA [facility] REC#: [id number] PT STATUS: REG ER : 1945 PHYSICIAN: ALVARO DE LA TORRE MD ADMIT DATE: 03/10/21/ER Signed Date of Exam:03/10/21 CHEST 1 VIEW, AP/PA ONLY INDICATION: 75-year-old male with hypertension, left arm and face numbness. COMPARISONS: 08/24/2020. FINDINGS: Single view of the chest shows normal heart, pulmonary vasculature, pleura, and diaphragms with no focal opacities. Soft tissues and bony thorax are normal. IMPRESSION: No acute cardiopulmonary changes. Dictated by: Dictated on workstation # [id number] Dict: 03/10/21 1743 Trans: 03/10/211756 [facility] [id number] Interpreted by: SHAWNA CARVAJAL MD Electronically signed by: SHAWNA CARVAJAL MD 03/10/211756 NAME: AMBER GUPTA REC#: [id number] PT STATUS: REG ER : 1945 PHYSICIAN: ALVARO DE LA TORRE MD ADMIT DATE: 03/10/21/ER Signed Date of Exam:03/10/21 CT HEAD WO-R/O STROKE PROCEDURE: CT head wo r/o stroke. TECHNIQUE: Multiple contiguous axial images were obtained through the brain without the use of intravenous contrast. Auto Exposure Controls were utilized during the CT exam to meet ALARA standards for radiation dose reduction. INDICATION: Hypertension with left arm and left face numbness. COMPARISONS: 04/14/2018 FINDINGS: Midline structures are not displaced. Lateral, 3rd, and 4th ventricles are normal in size, shape and anatomic position. There is no mass, mass effect, hydrocephalus or hemorrhage. Khalil-white differentiation is normal. There is no sulcal effacement. There are no abnormal extra-axial fluid collections or hemorrhage. There is calcific atherosclerosis within the carotid siphons. Basilar cisterns appear normal. Sinuses, orbits and mastoid air cells are normal. Bone windows show no calvarial changes. IMPRESSION: Unremarkable nonenhanced CT brain. There is calcific atherosclerosis within the carotid siphons. 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 No KASSANDRA on renal u/s of 05/20/18 (renal cysts were found for which f/u is advised with pcp) Factor V Leiden mutation, treated with chronic warfarin therapy that is managed by Dr Fajardo S/p Anita filter in [address] Benjamin at [place], [place] Echo of March 2018 showed LVEF 60-65%. Grade 1 diastolic dysfunction. PASP 25-30mmHg. Mild TR and MR. MPI of March 2018 showed no evidence of significant ischemia or infarction. LVEF 67% Minimal carotid plaque without evidence of hemodynamic significance in March 2018 Discussion and Recomendations Chest discomfort of undetermined etiology - no evidence of ACS MPI to eval perfusion Echo to eval structure and function Uncontrolled HTN - adjust antihypertensive regimen CVA vs TIA - MRI of the brain Right carotid bruit - carotid u/s today Management of warfarin with medical services Monitor lab closely Replace electrolytes as indicated I have spoke with Dr. Fajardo regarding plan of care MELCHOR ZAVALA Mar 11, 2021 07:54
[2021-03-11] MEDS ORDERED: WARF-47 PO ×2 (08:10)
[2021-03-11] MEDS ORDERED: CARV12.53 PO ×3 (08:10→14:31)
--- NOTE | 2021-03-11 08:38 | History & Physical ---
History of Present Illness History of Present Illness Reason for visit/HPI PT IS A 75 Y/O MALE WHO IS KNOWN TO ME FROM CLINIC. HE PRESENTED TO THE HOSPITAL YESTERDAY WITH COMPLAINT OF NOT FEELING WELL AND ELEVATED BLOOD PRESSURE. HE WAS EVALUATED, TREATED WITH ORAL AMLODIPINE AND HYDRALAZINE AND ADVISED TO BE SEEN IN THE OFFICE [place]. THE PT WENT HOME, BECAME HYPOTENSIVE AND PRESENTED BACK TO THE HOSPITAL WITH CHEST DISCOMFORT AND HYPOTENSION. WHILE IN THE EMERGENCY DEPARTMENT, HE BECAME HYPERTENSIVE AGAIN AND WAS ADMITTED TO THE HOSPITAL WITH HYPERTENSIVE ENCEPHALOPATHY/URGENCY. CARDENE DRIP STOPPED IN THE 2AM HOUR, RESTARTED AGAIN AFTER 8AM - 180'S/80'S Date of Admission Mar 10, 2021 at 17:05 I consulted on this patient on 03/11/21 08:30 Attending Physician Alyce Fajardo MD Admitting Physician Alyce Fajardo MD Consult Allergies and Home Medications Allergies Coded Allergies: aspirin (Unverified Allergy, Mild, HIVES, 12/23/09) Home Medications Acetaminophen 650 Mg Tablet.er, 1,300 MG PO BID PRN for PAIN-MILD, (Reported) Last Action: Converted Amlodipine Besylate 5 Mg Tablet, 5 MG PO DAILY Prescribed by: ALVARO DE LA TORRE on 03/10/21 1149 Last Action: Reviewed Atorvastatin Calcium 40 Mg Tablet, 40 MG PO HS Prescribed by: ALYCE FAJARDO on 02/15/19 0850 Carvedilol 12.5 Mg Tablet, 6.25 MG PO BID Prescribed by: DUKE SCHNEIDER on 03/11/21 0810 Last Action: Reviewed Hydralazine HCl 25 Mg Tablet, 50 MG PO Q8HR Prescribed by: ALYCE FAJARDO on 02/15/19 0850 Lisinopril 40 Mg Tablet, 20 MG PO BID, (Reported) TAKES 1/2 (40MG) TABLET Last Action: Continued Magnesium Oxide 250 Mg Tablet, 250 MG PO BID, (Reported) Last Action: Converted Tamsulosin HCl 0.4 Mg Cap, 0.4 MG PO BID, (Reported) Last Action: Continued Warfarin Sodium 2 Mg Tablet, 2 MG PO DAILY, (Reported) Last Action: Continued Patient Home Medication List Home Medication List Reviewed: Yes Past Zkyauvo-Vhwted-Xsbyux Hx Past Med/Social Hx: Reviewed Nursing Past Med/Soc Hx Patient Social History Alcohol Use: Denies Use Recreational Drug Use: No Smoking Status: Former Smoker Former Smoker, Quit: Feb 26, 1988 2nd Hand Smoke Exposure: No Recent Foreign Travel: No Contact w/other who traveled: No Recent Hopitalizations: No Recent Infectious Disease Expo: No Seasonal Allergies Seasonal Allergies: No Past Medical History Surgeries: Abdominal, Orthopedic, Renal, Vascular Surgery Cardiac: Deep Vein Thrombosis, High Cholesterol, Hypertension, Peripheral Vascular Reproductive: No Sexually Transmitted Disease: No Genitourinary: Benign Prostatic Hyperpl Musculoskeletal: Arthritis Loss of Vision: Denies Hearing Impairment: Denies History of Blood Disorders: Yes (Factor V Leiden) Family History Reviewed Nursing Family Hx Family history: Hypertension 03 FATHER 03 MOTHER 09 SISTER History of - disorder 03 FATHER (PASSED FROM ALS LIKE SYMPTOMS, BLOOD CLOTTING DISORDER ) 03 MOTHER Hypercholesterolemia 09 SISTER Myocardial infarction 03 MOTHER Neoplasm 03 MOTHER Stroke 03 MOTHER, Onset:60 years & older Hypertension, Stroke, Other Conditions/Hx Physical Exam Vital Signs Vital Signs - First Documented 03/10/21 03/10/21 16:50 18:30 Temp 36.7 Pulse 89 Resp 20 B/P (MAP) 202/97 (132) Pulse Ox 97 O2 Delivery Room Air Capillary Refill : Less Than 3 Seconds Height, Weight, BMI Height: 5'8.00" Weight: 205lbs. 4.8oz. [id number]; 30.82 BMI Method:Stated Assessment/Plan Assessment and Plan HYPERTENSIVE URGENCY HYPERTENSIVE ENCEPHALOPATHY HYPERLIPIDEMIA OSTEOARTHRITIS BPH Admission Diagnosis Admission Status: Inpatient Order (span 2 midnights) ALYCE FAJARDO MD Mar 11, 2021 08:38
[2021-03-11] MEDS ORDERED: ACETAMINOPHEN 325 MG TABLET PO PRN (08:45)
[2021-03-11] MEDS ORDERED: NON-FORMULARY MEDICATION 1 EA EA (Magnesium Oxide (Magnesium) 250 MG) PO SCH (09:00)
[2021-03-11] MEDS ORDERED: amLODIPine 10 MG (NORVASC) TAB PO ONE (09:15)
[2021-03-11] MEDS ORDERED: REGADENOSON 0.4 MG/5 ML SYR (LEXISCAN) IV ONE (09:15)
[2021-03-11] MEDS: lisINopril 20 MG (PRINIVIL) TABLET PO SCH ×2 (10:23→21:23)
[2021-03-11] MEDS: TAMSULOSIN 0.4 MG (FLOMAX) CAP PO SCH ×2 (10:23→21:23)
[2021-03-11] MEDS: warFARin 2 MG (COUMADIN) TAB PO SCH (10:24)
[2021-03-11] MEDS ORDERED: GADOBUTROL 10 MMOL/10 ML (GADAVIST) VIAL IV ONE (10:30)
--- NOTE | 2021-03-11 11:54 | Diagnostic Imaging Report ---
CLINICAL INDICATION: CVA versus TIA. Patient with left arm and face numbness. EXAM: MRI of the brain performed without IV contrast. Sequences include axial DWI, ADC map, axial T2, axial FLAIR, axial T1, and axial gradient echo. Of note IV contrast was not performed due to patient having chest pressure during exam. COMPARISON: Head CT without contrast dated 03/10/2021. FINDINGS: There is no evidence of acute cerebral infarct, intracranial hemorrhage, or gross mass effect. The brain parenchymal volume appears appropriate for patient's age. There are multiple focal, patchy mildly confluent areas of high T2 signal white matter changes involving both cerebral hemispheres and periventricular regions, likely related to chronic small vessel ischemic disease and leukoaraiosis. There is normal robbins-white matter distinction. There is no significant midline shift or herniation. The [place] vascular structures show no gross abnormality as visualized. There is no evidence of hydrocephalus. The basal cisterns are unremarkable. The skull, extracranial soft tissue, and orbits are unremarkable. There is mild mucosal thickening involving both maxillary sinuses and minimal mucosal thickening involving the ethmoid sinus. Temporal bones show no significant abnormality. IMPRESSION: 1: There is no evidence of acute intracranial process. There is no acute cerebral infarct or intracranial hemorrhage. 2: Age related brain parenchymal changes including mild chronic small vessel ischemic disease and leukoaraiosis. 3: Mild paranasal sinus disease. Dictated by: Dictated on workstation # [id number]
--- NOTE | 2021-03-11 11:56 | Consultation-Cardiology ---
HPI-Cardiology Cardiology Consultation: Date of Consultation 03/11/21 Time Seen by a Provider: 10:00 Date of Admission Attending Physician Alyce Fajardo MD Admitting Physician Alyce Fajardo MD Consulting Physician SUNNY TOMLINSON MD, MA, FACP, FACC, FSCAI, CCDS HPI: Chief Complaint: Uncontrolled HTN Mr. Gupta is a 75 yr old male admitted to ICU 8 with uncontrolled hypertension. He reports he woke up early yesterday morning to use the restroom at home and felt "unwell"; mild SOB, chest pressure, heaviness, but he was able to go back to sleep. He reports when he woke up he checked his BP and noted it to be 220's systolic. He then came to the ED and BP began to improve. He states he went back home and began to feel unwell again. He states he developed facial numbness and discomfort in his left arm. He states this persisted for about 1 1/2 hours. He reports he came back to the to be evaluated. He reports feeling unsteady at the time. He states his BP was again elevated. He reports at home his BP is typically 130's-140's systolic. He states he has not missed any medications at home. He reports he is on warfarin d/t Factor V Leiden which is followed by his PCP. He reports he has a IVC filter in place. He states his symptoms have resolved at this time. No c/o fever or chills. No c/o n/v. He reports chronic diarrhea which has been present for years. Review of Systems-Cardiology Review of Systems Constitutional: As described under HPI; No chills, No fever Eyes: No vision change Ears/Nose/Throat: No epistaxis, No recent hearing loss Respiratory: As described under HPI Cardiovascular: As described under HPI Gastrointestinal: As described under HPI Genitourinary: No dysuria, No hematuria Musculoskeletal: no symptoms reported All Other Systems Reviewed Negative Unless Noted: Yes BMN-Emqguz-Gkbdyz Hx Patient Social History Smoking Status: Former Smoker 2nd Hand Smoke Exposure: No Have you traveled recently?: No Alcohol Use?: No Past Medical History PMH As described under Assessment. Family Medical History Family Medical History: Reports family h/o father having HTN. Mother having HTN and CVA. Sister having HTN. Family History: Family history: Hypertension 03 FATHER 03 MOTHER 09 SISTER History of - disorder 03 FATHER (PASSED FROM ALS LIKE SYMPTOMS, BLOOD CLOTTING DISORDER ) 03 MOTHER Hypercholesterolemia 09 SISTER Myocardial infarction 03 MOTHER Neoplasm 03 MOTHER Stroke 03 MOTHER, Onset:60 years & older Allergies and Home Medications Allergies Coded Allergies: aspirin (Unverified Allergy, Mild, HIVES, 12/23/09) Home Medications Acetaminophen 650 Mg Tablet.er, 1,300 MG PO BID PRN for PAIN-MILD, (Reported) Last Action: Converted Amlodipine Besylate 5 Mg Tablet, 5 MG PO DAILY Prescribed by: ALVARO DE LA TORRE on 03/10/21 1149 Last Action: Reviewed Atorvastatin Calcium 40 Mg Tablet, 40 MG PO HS Prescribed by: ALYCE FAJARDO on 02/15/19 0850 Carvedilol 12.5 Mg Tablet, 6.25 MG PO BID Prescribed by: DUKE SCHNEIDER on 03/11/21 0810 Last Action: Reviewed Hydralazine HCl 25 Mg Tablet, 50 MG PO Q8HR Prescribed by: ALYCE FAJARDO on 02/15/19 0850 Lisinopril 40 Mg Tablet, 20 MG PO BID, (Reported) TAKES 1/2 (40MG) TABLET Last Action: Continued Magnesium Oxide 250 Mg Tablet, 250 MG PO BID, (Reported) Last Action: Converted Tamsulosin HCl 0.4 Mg Cap, 0.4 MG PO BID, (Reported) Last Action: Continued Warfarin Sodium 2 Mg Tablet, 2 MG PO DAILY, (Reported) Last Action: Continued Patient Home Medication List Home Medication List Reviewed: Yes Physical Exam-Cardiology Physical Exam Vital Signs/I&O 03/11/21 03/11/21 03/11/21 03/11/21 00:00 00:40 01:00 01:00 Pulse 77 70 70 Resp 22 17 B/P (MAP) 155/84 (107) 148/67 (94) Pulse Ox 94 94 O2 Delivery Room Air Room Air Room Air 03/11/21 03/11/21 03/11/21 03/11/21 02:00 03:00 03:13 04:00 Temp 36.8 Pulse 71 73 Resp B/P (MAP) 147/88 (107) 151/79 (103) Pulse Ox 93 92 O2 Delivery Room Air Room Air Room Air 03/11/21 03/11/21 03/11/21 03/11/21 04:00 05:00 06:00 07:00 Pulse 67 70 67 74 Resp 20 13 19 B/P (MAP) 123/60 (81) 149/81 (103) 152/85 (107) Pulse Ox 93 95 94 O2 Delivery Room Air Room Air Room Air 03/11/21 03/11/21 03/11/21 03/11/21 07:00 07:22 08:00 08:00 Temp 36.5 Pulse 73 75 Resp 18 18 B/P (MAP) 183/93 (123) 176/93 (120) Pulse Ox 95 93 O2 Delivery Room Air Room Air Room Air 03/11/21 11:00 B/P (MAP) 175/100 (125) O2 Delivery Room Air 03/11/21 00:00 Intake Total 150 ml Output Total 450 ml Balance -300 ml Capillary Refill : Less Than 3 Seconds Constitutional: AAO x 3, well-developed, well-nourished HEENT: PERRL, hearing is well preserved, oral hygience is good Neck: carotid bruit (right carotid bruit), carotid pulses are 2 + bilaterally Respiratory: No accessory muscle use, No respiratory distress; chest expansion is symmetric, chest is bilaterally symmetric, lungs clear to auscultation Cardiovascular: regular rate-rhythm; No JVD; S1 and S2 Gastrointestinal: No tender; soft, round, audible bowel sounds Extremities: no lower extremity edema bilateral Neurologic/Psychiatric: grossly intact (moves all extremities) Skin: No rash on exposed areas, No ulcerations on exposed areas Data Review Labs Laboratory Tests 03/10/21 16:50: Sodium Level 140, Potassium Level 3.7, Chloride Level 108H, Carbon Dioxide Level 22, Anion Gap 10, Blood Urea Nitrogen 12, Creatinine 1.17, Estimat Glomerular Filtration Rate > 60, BUN/Creatinine Ratio 10, Glucose Level 93, Calcium Level 8.8, Corrected Calcium 8.9, Total Bilirubin 0.5, Aspartate Amino Transf (AST/SGOT) 16, Alanine Aminotransferase (ALT/SGPT) 16, Alkaline Phosphatase 122, Troponin I < 0.028, Total Protein 7.1, Albumin 3.9 03/10/21 21:00: Urine Color YELLOW, Urine Clarity CLEAR, Urine pH 5.5, Urine Specific Banner 1.020, Urine Protein NEGATIVE, Urine Glucose (UA) NEGATIVE, Urine Ketones NEGATIVE, Urine Nitrite NEGATIVE, Urine Bilirubin NEGATIVE, Urine Urobilinogen 0.2, Urine Leukocyte Esterase NEGATIVE, Urine RBC (Auto) NEGATIVE, Urine RBC NONE, Urine WBC RARE, Urine Crystals NONE, Urine Bacteria TRACE, Urine Casts NONE, Urine Mucus NEGATIVE, Urine Culture Indicated NO 03/10/21 21:55: Urine Opiates Screen NEGATIVE, Urine Oxycodone Screen NEGATIVE, Urine Methadone Screen NEGATIVE, Urine Propoxyphene Screen NEGATIVE, Urine Barbiturates Screen NEGATIVE, Ur Tricyclic Antidepressants Screen NEGATIVE, Urine Phencyclidine Screen NEGATIVE, Urine Amphetamines Screen NEGATIVE, Urine Methamphetamines Screen NEGATIVE, Urine Benzodiazepines Screen NEGATIVE, Urine Cocaine Screen NEGATIVE, Urine Cannabinoids Screen NEGATIVE 03/11/21 03:30: Sodium Level 139, Potassium Level 3.7, Chloride Level 104, Carbon Dioxide Level 23, Anion Gap 12, Blood Urea Nitrogen 13, Creatinine 1.20, Estimat Glomerular Filtration Rate 59, BUN/Creatinine Ratio 11, Glucose Level 120H, Calcium Level 8.8, White Blood Count 11.0, Red Blood Count 5.53H, Hemoglobin 15.9, Hematocrit 47, Mean Corpuscular Volume 85, Mean Corpuscular Hemoglobin 29, Mean Corpuscular Hemoglobin Concent 34, Red Cell Distribution Width 13.2, Platelet Count 219, Mean Platelet Volume 11.0, Immature Granulocyte % (Auto) 0, Neutrophils (%) (Auto) 70, Lymphocytes (%) (Auto) 20, Monocytes (%) (Auto) 8, Eosinophils (%) (Auto) 1, Basophils (%) (Auto) 1, Neutrophils # (Auto) 7.7, Lymphocytes # (Auto) 2.2, Monocytes # (Auto) 0.8, Eosinophils # (Auto) 0.1, Basophils # (Auto) 0.1, Immature Granulocyte # (Auto) 0.0, Phosphorus Level 2.7, Magnesium Level 1.8, Triglycerides Level 587H, Cholesterol Level 218H, LDL Cholesterol Direct 93, VLDL Cholesterol 117H, HDL Cholesterol 32L A/P-Cardiology Assessment/Admission Diagnosis Uncontrolled hypertension TIA vs CVA Chest discomfort of undetermined etiology Intolerant to Doxazosin secondary to fatigue and dizziness 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 No KASSANDRA on renal u/s of 05/20/18 (renal cysts were found for which f/u is advised with pcp) Factor V Leiden mutation, treated with chronic warfarin therapy that is managed by Dr Fajardo S/p [place] filter in [address] Benjamin at [place], [place] Echo of March 2018 showed LVEF 60-65%. Grade 1 diastolic dysfunction. PASP 25- 30mmHg. Mild TR and MR. MPI of March 2018 showed no evidence of significant ischemia or infarction. LVEF 67% Minimal carotid plaque without evidence of hemodynamic significance in March 2018 Discussion and Recomendations MPI to eval perfusion Echo to eval structure and function Uncontrolled HTN - adjust antihypertensive regimen CVA vs TIA - MRI of the brain Right carotid bruit - carotid u/s today Management of warfarin with medical services Monitor lab closely Replace electrolytes as indicated We have discussed with Dr. Fajardo the plan of care SUNNY TOMLINSON MD FACP FAC CCDS Mar 11, 2021 11:56
--- NOTE | 2021-03-11 12:12 | Pulmonary Progress Note ---
Subjective Date Seen by a Provider: Mar 11, 2021 Time Seen by a Provider: 12:11 Sepsis Event Evaluation Height, Weight, BMI Height: 5'8.00" Weight: 205lbs. 4.8oz. 93.297188xo; 30.82 BMI Method:Stated Exam Exam Patient acknowledged, consented, and participated in this virtual visit which was conducted using real time audio/video Vital Signs Date Time Temp Pulse Resp B/P (MAP) Pulse Ox O2 Delivery O2 Flow Rate FiO2 03/11/21 11:00 175/100 (125) Room Air 03/11/21 08:00 75 18 176/93 (120) 93 Room Air 03/11/21 08:00 Room Air 03/11/21 07:22 36.5 03/11/21 07:00 73 18 183/93 (123) 95 Room Air 03/11/21 07:00 74 03/11/21 06:00 67 19 152/85 (107) 94 Room Air 03/11/21 05:00 70 13 149/81 (103) 95 Room Air 03/11/21 04:00 67 20 123/60 (81) 93 Room Air 03/11/21 04:00 36.8 03/11/21 03:13 Room Air 03/11/21 03:00 73 21 151/79 (103) 92 Room Air 03/11/21 02:00 71 15 147/88 (107) 93 Room Air 03/11/21 01:00 70 17 148/67 (94) 94 Room Air 03/11/21 01:00 70 03/11/21 00:40 Room Air 03/11/21 00:00 77 22 155/84 (107) 94 Room Air 03/10/21 23:49 36.6 03/10/21 23:00 71 16 129/58 (81) 93 Room Air 03/10/21 22:00 84 18 165/79 (107) 94 Room Air 03/10/21 21:14 Room Air 03/10/21 21:00 81 23 154/77 (109) 95 Room Air 03/10/21 20:45 85 19 149/73 (95) 95 Room Air 03/10/21 20:30 105 30 204/113 (141) 96 Room Air 03/10/21 20:15 85 17 182/78 (110) 96 Room Air 03/10/21 20:03 82 20 181/91 (121) 96 Room Air 03/10/21 19:45 85 28 188/92 (116) 98 Room Air 03/10/21 19:30 88 16 174/90 (118) 97 Room Air 03/10/21 19:15 85 19 170/85 (109) 97 Room Air 03/10/21 19:00 104 27 160/86 (110) 99 Room Air 03/10/21 19:00 104 03/10/21 18:42 Room Air 03/10/21 18:30 76 24 166/83 99 Room Air 03/10/21 16:50 36.7 89 20 202/97 (132) 97 I & O 03/11/21 07:00 Intake Total 350 ml Output Total 1400 ml Balance -1050 ml Height & Weight Height: 5'8.00" Weight: 205lbs. 4.8oz. 93.356343dz; 30.82 BMI Method:Stated General Appearance: No Apparent Distress Capillary Refill: Less Than 3 Seconds Gastrointestinal: non tender, soft Results Lab Laboratory Tests 03/10/21 16:50 03/11/21 03:30 Assessment/Plan Assessment/Plan (Tele-ICU Physician , Progress Note ) Available chart/ vitals / labs / Images reviewed Video assessment done using teleICU camera, rest of exam as per RN Discussed with RN Events overnight : Afebrile RA hemodynamically stable, no pressors, I/O = juanito 300 Drips: kenna Consultants: [facility] Hospital course: 03/10-Admiited to ICU on 2nd visit to ED in 12 hour period for uncontrolled HTN and IV anti-HTN control - cardene gtt A/P Uncontrolled hypertension -H/o L renal artery stensosis-> stenting in 2001-> patent on CT angio -antihypertensive regimen as per cards -ECHO 03/11 - pending TIA vs CVA - on AC - MTI brain ordered Chest discomfort - no evidence of ACS --ECHO 03/11 - pending ( 2018 showed LVEF 60-65%. Grade 1 diastolic dysfunction. PASP 25-30mmHg. Mild TR and MR. Factor V Leiden mutation - on chronic warfarin, INR > 2 - to cont ( and stop lovenox -S/p IVCF 2010 Lines : periph Coburn: OG: Nutrition: po Analgesia: na Anxiety/ delirium na VTE Prophylaxis: coumadin Stress Ulcer Prophylaxis: na Glycemic Control: + Plans in collaboration with bedside consultants and IM MDs. Discussed with RN to reach out if any questions or concerns A total of 27 minutes of critical care time was devoted to this patient today, required to treat and/or prevent further deterioration of critical care condition ( as above ) . [id number] RADHA NASSAR MD Mar 11, 2021 12:12
[2021-03-11] MEDS ORDERED: L.AC1CAP6 PO ×2 (14:31)
[2021-03-11] MEDS ORDERED: AMLO-250 PO ×2 (14:31)
[2021-03-11] MEDS ORDERED: UBID100C17 PO ×2 (14:31)
--- NOTE | 2021-03-11 16:39 | Diagnostic Imaging Report ---
PROCEDURE: US carotid duplex, bilateral. TECHNIQUE: Multiple real-time grayscale images were obtained over the carotid arteries in various projections, bilaterally. Additional spectral analysis and color Doppler duplex images were also obtained. INDICATION: Transient ischemic attack. Carotid artery stenosis. Hypertension. COMPARISON: 04/14/2018. FINDINGS: Right carotid: The right common carotid artery measures 82 cm/s proximally and there is mild atherosclerosis throughout the common carotid artery. There is more atherosclerosis distally, to a point of high-grade stenosis at the carotid bulb which causes 80% stenosis visually with velocities measuring up to 271 cm/s. There is elevated velocity continuing in the proximal ICA, measuring 249 cm/s. The ICA/CCA ratio is 3.1. The right ECA is patent. Carotid upstrokes are brisk. The vertebral artery is antegrade. Left carotid: The left common carotid artery demonstrates mild atherosclerosis proximally with moderate atherosclerosis at the carotid bulb. Stenosis at the carotid bulb is less than 50%, approximately 40%. The right ICA demonstrates normal velocity with no high-grade stenosis seen. The ECA is patent. Carotid upstrokes are brisk. The vertebral artery is antegrade. Parameters based on the consensus panel Khalil-Scale and Doppler ultrasound criteria published July 2003, Radiology, Volume 229. DOPPLER (peak systolic velocity M/S Right Left CCA .78 1.0 ICA Proximal 2.5 .65 ICA Mid 1.6 .85 ICA Distal .59 .96 RATIO 3.1 .9 ECA 1.2 1.0 VERT .30 .70 IMPRESSION: 1. Atherosclerosis in the carotid bulbs bilaterally, right greater than left. This results in greater than 70% stenosis at the right carotid bulb/proximal ICA. This has increased since 2018. 2. Less than 50% stenosis at the left carotid bulb. Dictated by: Dictated on workstation # [id number]
[2021-03-12 03:36] LABS: BASOPHILS # (AUTO) 0.1 10^3/uL (0.0-0.1); BASOPHILS % (AUTO) 1 % (0-10); EOSINOPHILS # (AUTO) 0.2 10^3/uL (0.0-0.3); EOSINOPHILS % (AUTO) 2 % (0-10); HEMATOCRIT 45 % (40-54); HEMOGLOBIN 15.2 g/dL (13.3-17.7); LYMPHOCYTES # (AUTO) 2.4 10^3/uL (1.0-4.0); LYMPHOCYTES % (AUTO) 25 % (12-44); MEAN CORPUSCULAR HEMOGLOBIN 28 pg (25-34); MEAN CORPUSCULAR HGB CONC 34 g/dL (32-36); MEAN CORPUSCULAR VOLUME 84 fL (80-99); MEAN PLATELET VOLUME 10.2 fL (9.0-12.2); MONOCYTES # (AUTO) 0.9 10^3/uL (0.0-1.0); MONOCYTES % (AUTO) 9 % (0-12); NEUTROPHILS # (AUTO) 6.1 10^3/uL (1.8-7.8); NEUTROPHILS % (AUTO) 63 % (42-75); PLATELET COUNT 206 10^3/uL (130-400); WHITE BLOOD COUNT 9.8 10^3/uL (4.3-11.0)
[2021-03-12 03:51] LABS: INR 1.6 (0.8-1.4); PROTHROMBIN TIME PATIENT 19.5 SEC (12.2-14.7)
[2021-03-12 03:52] LABS: POTASSIUM 3.8 MMOL/L (3.6-5.0)
[2021-03-12 03:53] LABS: CALCIUM 8.7 MG/DL (8.5-10.1)
[2021-03-12 03:58] LABS: CREATININE SERUM 1.22 MG/DL (0.60-1.30)
[2021-03-12 04:00] LABS: MAGNESIUM 1.8 MG/DL (1.6-2.4)
[2021-03-12] MEDS: KCL 20 MEQ TAB (K-DUR) PO SCH (06:11)
[2021-03-12] MEDS: CATHETER FLUSH 10 ML SYR IV SCH ×2 (06:11→13:09)
[2021-03-12] MEDS: POTASSIUM CL 10MEQ/50ML IVPB 50 ML IV SCH (06:11)
[2021-03-12] MEDS: MAGNESIUM 1 GM/100 ML IVPB 100 ML IV SCH (06:11)
[2021-03-12] MEDS ORDERED: REGADENOSON 0.4 MG/5 ML SYR (LEXISCAN) IV ONE (07:35)
[2021-03-12 08:00] VITALS: BP 152/86
--- NOTE | 2021-03-12 08:32 | Progress Note - Cardiology ---
Cardiology SOAP Progress Note Subjective: MPI this morning No c/o CP, SOB or palpitations States he is feeling much better today Objective: I&O/Vital Signs 03/11/21 03/11/21 03/11/21 03/11/21 20:53 21:00 23:35 23:59 Temp 35.9 Pulse 75 80 Resp 12 14 B/P (MAP) 164/91 (115) 148/86 (106) Pulse Ox 97 98 O2 Delivery Room Air Room Air Room Air Room Air 03/12/21 03/12/21 03/12/21 03/12/21 01:00 04:00 04:00 08:00 Pulse 63 62 62 Resp 17 B/P (MAP) 152/86 (108) Pulse Ox 95 O2 Delivery Room Air Room Air 03/12/21 00:00 Intake Total 950 ml Output Total 600 ml Balance 350 ml Weight (Pounds): 205 Weight (Ounces): 4.8 Weight (Calculated Kilograms): 93.785833 Constitutional: AAO x 3, well-developed, well-nourished Respiratory: No accessory muscle use, No respiratory distress; chest expansion is symmetric, chest is bilaterally symmetric, lungs clear to auscultation Cardiovascular: regular rate-rhythm; No JVD; S1 and S2 Gastrointestional: No tender; soft, round, audible bowel sounds Extremities: no lower extremity edema bilateral Neurologic/Psychiatric: grossly intact (moves all extremities) Skin: No rash on exposed areas, No ulcerations on exposed areas Results/Procedures: Labs Laboratory Tests 03/12/21 03:15: White Blood Count 9.8, Red Blood Count 5.37, Hemoglobin 15.2, Hematocrit 45, Mean Corpuscular Volume 84, Mean Corpuscular Hemoglobin 28, Mean Corpuscular Hemoglobin Concent 34, Red Cell Distribution Width 13.2, Platelet Count 206, Mean Platelet Volume 10.2, Immature Granulocyte % (Auto) 0, Neutrophils (%) (Auto) 63, Lymphocytes (%) (Auto) 25, Monocytes (%) (Auto) 9, Eosinophils (%) (Auto) 2, Basophils (%) (Auto) 1, Neutrophils # (Auto) 6.1, Lymphocytes # (Auto) 2.4, Monocytes # (Auto) 0.9, Eosinophils # (Auto) 0.2, Basophils # (Auto) 0.1, Immature Granulocyte # (Auto) 0.0, Prothrombin Time 19.5H, INR Comment 1.6H, Sodium Level 139, Potassium Level 3.8, Chloride Level 106, Carbon Dioxide Level 21, Anion Gap 12, Blood Urea Nitrogen 14, Creatinine 1.22, Estimat Glomerular Filtration Rate 58, BUN/Creatinine Ratio 11, Glucose Level 120H, Calcium Level 8.7, Phosphorus Level 3.0, Magnesium Level 1.8 Microbiology 03/10/21 MRSA Screen - Final, Complete MRSA not isolated Laboratory Tests 03/10/21 16:50 03/11/21 03:30 03/12/21 03:15 A/P: Assessment: Uncontrolled hypertension - improved TIA vs CVA - Atherosclerosis in the carotid bulbs bilaterally, right greater than left. This results in greater than 70% stenosis at the right carotid bulb/proximal ICA . This has increased since 2018. Less than 50% stenosis at the left carotid bulb. 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 No KASSANDRA on renal u/s of 05/20/18 (renal cysts were found for which f/u is advised with pcp) Factor V Leiden mutation, treated with chronic warfarin therapy that is managed by Dr Fajardo S/p [place] filter in [address] Benjamin at [place], [place] Echo of 03-11-21 showed LVEF 60-65%. Grade 1 diastolic dysfunction. PASP 35-40 mmHg. MPI of March 2018 showed no evidence of significant ischemia or infarction. LVEF 67% Plan: MPI to eval perfusion - pending Uncontrolled HTN - improved following adjustment in antihypertensive regimen Renal artery u/s later today CVA vs TIA - management per medical services Greater than 70% stenosis at the right carotid bulb/proximal ICA. Less than 50% stenosis at the left carotid bulb - advise close monitoring as out pt - start ASA 81 mg daily Management of warfarin with medical services Monitor lab closely MELCHOR ZAVALA Mar 12, 2021 08:32
--- NOTE | 2021-03-12 08:36 | Progress Note ---
Subjective All Other Systems Reviewed All Other Systems Reviewed: Yes Objective Exam Vital Signs Vital Signs - First Documented 03/10/21 03/10/21 16:50 18:30 Temp 36.7 Pulse 89 Resp 20 B/P (MAP) 202/97 (132) Pulse Ox 97 O2 Delivery Room Air Capillary Refill : Less Than 3 Seconds General Appearance: No Apparent Distress Results Lab Laboratory Tests 03/12/21 03:15: White Blood Count 9.8, Red Blood Count 5.37, Hemoglobin 15.2, Hematocrit 45, Mean Corpuscular Volume 84, Mean Corpuscular Hemoglobin 28, Mean Corpuscular Hemoglobin Concent 34, Red Cell Distribution Width 13.2, Platelet Count 206, Mean Platelet Volume 10.2, Immature Granulocyte % (Auto) 0, Neutrophils (%) (Auto) 63, Lymphocytes (%) (Auto) 25, Monocytes (%) (Auto) 9, Eosinophils (%) (Auto) 2, Basophils (%) (Auto) 1, Neutrophils # (Auto) 6.1, Lymphocytes # (Auto) 2.4, Monocytes # (Auto) 0.9, Eosinophils # (Auto) 0.2, Basophils # (Auto) 0.1, Immature Granulocyte # (Auto) 0.0, Prothrombin Time 19.5H, INR Comment 1.6H, Sodium Level 139, Potassium Level 3.8, Chloride Level 106, Carbon Dioxide Level 21, Anion Gap 12, Blood Urea Nitrogen 14, Creatinine 1.22, Estimat Glomerular Filtration Rate 58, BUN/Creatinine Ratio 11, Glucose Level 120H, Calcium Level 8.7, Phosphorus Level 3.0, Magnesium Level 1.8 Microbiology 03/10/21 MRSA Screen - Final, Complete MRSA not isolated Assessment/Plan Assessment/Plan Admission Dx HYPERTENSIVE URGENCY HYPERTENSIVE ENCEPHALOPATHY HYPERLIPIDEMIA OSTEOARTHRITIS BPH Assessment and Plan HYPERTENSIVE URGENCY HYPERTENSIVE ENCEPHALOPATHY HYPERLIPIDEMIA OSTEOARTHRITIS BPH IMPRESSION: 1. Atherosclerosis in the carotid bulbs bilaterally, right greater than left. This results in greater than 70% stenosis at the right carotid bulb/proximal ICA. This has increased since 2018. 2. Less than 50% stenosis at the left carotid bulb. Admission Dx HYPERTENSIVE URGENCY HYPERTENSIVE ENCEPHALOPATHY HYPERLIPIDEMIA OSTEOARTHRITIS BPH Clinical Quality Measures Admission Status Admission Dx HYPERTENSIVE URGENCY HYPERTENSIVE ENCEPHALOPATHY HYPERLIPIDEMIA OSTEOARTHRITIS BPH ALYCE CASTANEDA MD Mar 12, 2021 08:36
[2021-03-12] MEDS ORDERED: warFARin 1 MG (COUMADIN) TAB PO ONE (08:45)
[2021-03-12] MEDS ORDERED: ASPIRIN 81 MG CHEW (CHILDREN'S ASA) PO ONE (08:45)
[2021-03-12] MEDS ORDERED: ASPIRIN 81 MG CHEW (CHILDREN'S ASA) PO SCH (09:00)
[2021-03-12] MEDS: TAMSULOSIN 0.4 MG (FLOMAX) CAP PO SCH (10:27)
[2021-03-12] MEDS: lisINopril 20 MG (PRINIVIL) TABLET PO SCH (10:27)
[2021-03-12] MEDS: amLODIPine 10 MG (NORVASC) TAB PO SCH ×2 (10:28→12:10)
--- NOTE | 2021-03-12 11:14 | Diagnostic Imaging Report ---
Clinical indication: Patient with uncontrolled hypertension. Patient has history of renal artery stenosis with stenting. Exam: Renal ultrasound with Doppler interrogation. Comparison: None. Findings: There is a 6.3 cm x 5.7 cm x 5.4 cm cystic lesion involving the inferior pole the right kidney with posterior enhancement. There is a 4.4 cm x 3.6 cm x 3.8 cm hypoechoic mass involving the lateral aspect of the right kidney which demonstrates Doppler flow. There is a 5.4 cm x 7.5 cm x 6.0 cm complex appearing cystic structure involving the inferior aspect of the left kidney. There appears to be septations involving this lesion. There is no significant central Doppler flow seen. Otherwise, both kidneys are normal in size and shape and cortical thickness without hydronephrosis or stones with the right and left kidneys measuring 10.9 cm and 13.1 cm in their craniocaudal dimensions, respectively. Abdominal aorta (peak systolic velocity): 54 cm/sec Right main renal artery Doppler(peak systolic): Proximal: 67 cm/sec; 1.24 RA/AO ratio Mid: 29 cm/sec; 0.54 RA/AO ratio Distal: 29 cm/sec; 0.54 RA/AO ratio [place]: 0.56-0.69 Left main renal artery Doppler(peak systolic): Proximal: 41 cm/sec; 0.76 RA/AO ratio Mid: 35 cm/sec; 0.65 RA/AO ratio Distal: 31 cm/sec; 0.57 RA/AO ratio [place] RI: 0.52-0.62 Impression: 1: There is no evidence of renal artery stenosis. There is no hydronephrosis. 2: There is a 4.4 cm solid appearing mass involving the lateral aspect of the right kidney which demonstrates central Doppler flow. A neoplasm, such as renal cell carcinoma, should be excluded. CT scan of the kidneys with and without contrast is suggested for further evaluation. If the patient is unable to receive CT IV contrast, then MRI would better evaluate. 3: There is a complex cystic lesion with septations involving the inferior aspect of left kidney. This also should be further evaluated with CT scan. 4: There is a 6.3 cm cystic lesion involving the inferior pole of the right kidney. This also could be better evaluated with CT scan. Dictated by: Dictated on workstation # [id number]
[2021-03-12] MEDS ORDERED: warFARin 1 MG (COUMADIN) TAB PO NR (12:45)
[2021-03-12 13:00] VITALS: BP 165/90
[2021-03-12] MEDS ORDERED: CLOPIDOGREL 75 MG (PLAVIX) TABLET PO ONE (13:00)
[2021-03-12] MEDS: warFARin 2 MG (COUMADIN) TAB PO SCH (13:13)
[2021-03-12] MEDS ORDERED: CLOPIDOGREL 75 MG (PLAVIX) TABLET PO SCH (15:00)
--- NOTE | 2021-03-12 15:02 | Progress Note - Cardiology ---
Cardiology SOAP Progress Note Subjective: No cp or palp or syncope or shortness of breath No n/v/d Objective: I&O/Vital Signs 03/12/21 03/12/21 03/12/21 03/12/21 04:00 04:00 06:46 08:00 Pulse 62 62 62 Resp 17 B/P (MAP) 152/86 (108) Pulse Ox 95 O2 Delivery Room Air Room Air 03/12/21 03/12/21 03/12/21 03/12/21 09:55 10:00 12:00 13:00 Temp 36.9 Pulse 62 Resp 16 B/P (MAP) 155/81 (105) 165/80 (108) 165/90 (115) Pulse Ox 96 97 O2 Delivery Room Air Room Air Room Air Room Air 03/12/21 00:00 Intake Total 950 ml Output Total 600 ml Balance 350 ml Weight (Pounds): 205 Weight (Ounces): 4.8 Weight (Calculated Kilograms): [id number] Constitutional: AAO x 3, well-developed, well-nourished Respiratory: No accessory muscle use, No respiratory distress; chest expansion is symmetric, chest is bilaterally symmetric, lungs clear to auscultation Cardiovascular: regular rate-rhythm; No JVD; S1 and S2 Gastrointestional: No tender; soft, round, audible bowel sounds Extremities: no lower extremity edema bilateral Neurologic/Psychiatric: grossly intact (moves all extremities) Skin: No rash on exposed areas, No ulcerations on exposed areas Results/Procedures: Labs Laboratory Tests 03/12/21 03:15: White Blood Count 9.8, Red Blood Count 5.37, Hemoglobin 15.2, Hematocrit 45, Mean Corpuscular Volume 84, Mean Corpuscular Hemoglobin 28, Mean Corpuscular Hemoglobin Concent 34, Red Cell Distribution Width 13.2, Platelet Count 206, Mean Platelet Volume 10.2, Immature Granulocyte % (Auto) 0, Neutrophils (%) (Auto) 63, Lymphocytes (%) (Auto) 25, Monocytes (%) (Auto) 9, Eosinophils (%) (Auto) 2, Basophils (%) (Auto) 1, Neutrophils # (Auto) 6.1, Lymphocytes # (Auto) 2.4, Monocytes # (Auto) 0.9, Eosinophils # (Auto) 0.2, Basophils # (Auto) 0.1, Immature Granulocyte # (Auto) 0.0, Prothrombin Time 19.5H, INR Comment 1.6H, Sodium Level 139, Potassium Level 3.8, Chloride Level 106, Carbon Dioxide Level 21, Anion Gap 12, Blood Urea Nitrogen 14, Creatinine 1.22, Estimat Glomerular Filtration Rate 58, BUN/Creatinine Ratio 11, Glucose Level 120H, Calcium Level 8.7, Phosphorus Level 3.0, Magnesium Level 1.8 Microbiology 03/10/21 MRSA Screen - Final, Complete MRSA not isolated A/P: Assessment: Uncontrolled hypertension - improved 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 Renal arterial u/s on 03/12/21: There is no evidence of renal artery stenosis. There is no hydronephrosis. There is a 4.4 cm solid appearing mass involving the lateral aspect of the right kidney which demonstrates central Doppler flow. A neoplasm, such as renal cell carcinoma, should be excluded. CT scan of the kidneys with and without contrast is suggested for further evaluation. If the patient is unable to receive CT IV contrast, then MRI would better evaluate. There is a complex cystic lesion with septations involving the inferior aspect of left kidney. This also should be further evaluated with CT scan. There is a 6.3 cm cystic lesion involving the inferior pole of the right kidney. This also could be better evaluated with CT scan. TIA vs CVA - Atherosclerosis in the carotid bulbs bilaterally, right greater than left. This results in greater than 70% stenosis at the right carotid bulb/proximal ICA. This has increased since 2018. Less than 50% stenosis at the left carotid bulb. Chest discomfort of undetermined etiology - MPI of 03/12/21 does not show ischemia or infarction and LVEF is normal Intolerant to Doxazosin secondary to fatigue and dizziness Factor V Leiden mutation, treated with chronic warfarin therapy that is managed by Dr Fajardo S/p Antia filter in [address] Benjamin at [place], [place] Echo of 03-11-21 showed LVEF 60-65%. Grade 1 diastolic dysfunction. PASP 35-40 mmHg. MPI of March 2018 showed no evidence of significant ischemia or infarction. LVEF 67% Plan: R renal mass eval and treatment is with the Med Svce Continue current antihypertensive regimen Renal artery u/s later today CVA vs TIA - management per medical services Greater than 70% stenosis at the right carotid bulb/proximal ICA. Less than 50% stenosis at the left carotid bulb - advise close monitoring as out pt - start ASA 81 mg daily Management of warfarin with Medical services SUNNY TOMLINSON MD FACP [facility] Mar 12, 2021 15:02
--- NOTE | 2021-03-12 15:23 | STRESS TEST ---
DATE OF SERVICE: 03/12/2021 RESTING AND POST REGADENOSON TECHNETIUM-99M TETROFOSMIN SPECT CT IMAGING ORDERING PHYSICIAN: Johana Aguila APRN PRIMARY PHYSICIAN: Dr. Fajardo. OTHER PHYSICIAN: Dr. Tomlinson. CLINICAL DIAGNOSES: Chest discomfort, hypertension. Baseline images were carried out after injection of 10.95 mCi of technetium-99m tetrofosmin. This was followed by 0.4 mg regadenoson and 31.3 mCi of technetium-99m tetrofosmin for stress imaging. The electrocardiogram showed sinus rhythm at baseline. It did not change significantly with the regadenoson infusion. Review of images at rest and following stress does not indicate any distinct perfusion defects consistent with significant myocardial ischemia or infarction. Some degree of attenuation of the diaphragmatic wall of the left ventricle is seen both at rest and following regadenoson infusion. Gated images show normal global left ventricular systolic function with normal regional wall motion, including the diaphragmatic wall of the left ventricle. Left ventricular ejection fraction is calculated to be 71%. Left ventricular end diastolic volume is 46 mL. TID is absent (1.13). CONCLUSIONS: 1. No evidence of any significant myocardial ischemia or infarction on this study. 2. Normal regional wall motion. 3. Normal global left ventricular systolic function with a calculated ejection fraction of 71%. Job ID: [id number] DocumentID: [id number] Dictated Date: 03/12/2021 12:53:17 Document Preparation Specialist Date: 03/12/2021 15:21:57 Dictated By: SUNNY TOMLINSON MD, MA, FACP, FACC,
--- NOTE | 2021-03-12 18:17 | Discharge Summary ---
Diagnosis/Chief Complaint Date of Admission Mar 10, 2021 at 17:05 Date of Discharge Reason Hospital Visit PT IS A 75 Y/O MALE WHO IS KNOWN TO ME FROM CLINIC. HE PRESENTED TO THE [facility] YESTERDAY WITH COMPLAINT OF NOT FEELING WELL AND ELEVATED BLOOD PRESSURE. HE WAS EVALUATED, TREATED WITH ORAL AMLODIPINE AND HYDRALAZINE AND ADVISED TO BE SEEN IN THE OFFICE [place]. THE PT WENT HOME, BECAME HYPOTENSIVE AND PRESENTED BACK TO THE HOSPITAL WITH CHEST DISCOMFORT AND HYPOTENSION. WHILE IN THE EMERGENCY DEPARTMENT, HE BECAME HYPERTENSIVE AGAIN AND WAS ADMITTED TO THE HOSPITAL WITH HYPERTENSIVE ENCEPHALOPATHY/URGENCY. CARDENE DRIP STOPPED IN THE 2AM HOUR, RESTARTED AGAIN AFTER 8AM - 180'S/80'S Discharge Summary Discharge Physical Examination Allergies: Coded Allergies: aspirin (Unverified Allergy, Mild, HIVES, 12/23/09) Vitals & I&Os Vital Signs Date Time Temp Pulse Resp B/P (MAP) Pulse Ox O2 Delivery O2 Flow Rate FiO2 03/12/21 16:00 36.8 03/12/21 15:30 165/84 (111) 03/12/21 13:00 62 16 97 Room Air Discharge Instructions to patient/family Please see electronic discharge instructions given to patient. Discharge Medications Reviewed and agree with Discharge Medication list on patient's Discharge Instruction sheet ALYCE CASTANEDA MD Mar 12, 2021 18:17
[2021-03-12] MEDS ORDERED: AMLO-251 PO ×2 (18:21)
[2021-03-12] MEDS ORDERED: CLOP75TA28 PO ×2 (18:21)
[2021-03-12] MEDS ORDERED: CARV12.53 PO ×2 (18:21)
--- NOTE | 2021-03-12 18:23 | Discharge Inst-Simple/Standard ---
Discharge Inst-Standard Reconcile Patient Problems Problems Reviewed?: Yes Discharge Medications New, Converted or Re-Newed RX: Transmitted to Pharmacy Patient Instructions/Follow Up Plan of Care/Instructions/FU: 1 wk follow up with [facility] Activity as Tolerated: Yes Discharge Diet: Low Sodium Diet Return to The Hospital For: any concern for chest pain, shortness of breath, dizziness, confusion Medication List: Active Scripts Active Amlodipine Besylate 10 Mg Tablet 10 Mg PO DAILY Carvedilol 12.5 Mg Tablet 25 Mg PO BID Clopidogrel (Clopidogrel Bisulfate) 75 Mg Tablet 75 Mg PO DAILY Reported Amlodipine Besylate 5 Mg Tablet 5 Mg PO DAILY Coq-10 (Ubidecarenone) 100 Mg Capsule 100 Mg PO DAILY Probiotic (L.acidoph & Paracasei,B.lactis) 1 Each Capsule 1 Each PO BID Carvedilol 12.5 Mg Tablet 6.25 Mg PO BID TAKES OF A 12.5MG TAB Warfarin Sodium 2 Mg Tablet 1 Mg PO BID TAKES OF A 2MG TAB Tylenol Arthritis (Acetaminophen) 650 Mg Tablet.er 1,300 Mg PO BID PRN Lisinopril 40 Mg Tablet 20 Mg PO BID TAKES 1/2 (40MG) TABLET Flomax (Tamsulosin HCl) 0.4 Mg Cap 0.4 Mg PO BID Magnesium (Magnesium Oxide) 250 Mg Tablet 250 Mg PO BID Lab results: Laboratory Tests Test 03/12/21 03:15 Range/Units White Blood Count 9.8 4.3-11.0 10^3/uL Red Blood Count 5.37 4.30-5.52 10^6/uL Hemoglobin 15.2 13.3-17.7 g/dL Hematocrit 45 40-54 % Mean Corpuscular Volume 84 80-99 fL Mean Corpuscular Hemoglobin 28 25-34 pg Mean Corpuscular Hemoglobin Concent 34 32-36 g/dL Red Cell Distribution Width 13.2 10.0-14.5 % Platelet Count 206 130-400 10^3/uL Mean Platelet Volume 10.2 9.0-12.2 fL Immature Granulocyte % (Auto) 0 % Neutrophils (%) (Auto) 63 42-75 % Lymphocytes (%) (Auto) 25 12-44 % Monocytes (%) (Auto) 9 0-12 % Eosinophils (%) (Auto) 2 0-10 % Basophils (%) (Auto) 1 0-10 % Neutrophils # (Auto) 6.1 1.8-7.8 10^3/uL Lymphocytes # (Auto) 2.4 1.0-4.0 10^3/uL Monocytes # (Auto) 0.9 0.0-1.0 10^3/uL Eosinophils # (Auto) 0.2 0.0-0.3 10^3/uL Basophils # (Auto) 0.1 0.0-0.1 10^3/uL Immature Granulocyte # (Auto) 0.0 0.0-0.1 10^3/uL Prothrombin Time 19.5 H 12.2-14.7 SEC INR Comment 1.6 H 0.8-1.4 Sodium Level 139 135-145 MMOL/L Potassium Level 3.8 3.6-5.0 MMOL/L Chloride Level 106 98-107 MMOL/L Carbon Dioxide Level 21 21-32 MMOL/L Anion Gap 12 5-14 MMOL/L Blood Urea Nitrogen 14 7-18 MG/DL Creatinine 1.22 0.60-1.30 MG/DL Estimat Glomerular Filtration Rate 58 BUN/Creatinine Ratio 11 Glucose Level 120 H 70-105 MG/DL Calcium Level 8.7 8.5-10.1 MG/DL Phosphorus Level 3.0 2.3-4.7 MG/DL Magnesium Level 1.8 1.6-2.4 MG/DL My orders: Orders - ALYCE CASTANEDA MD Transfer To Cardiac Step Down (03/11/21 21:50) Telemetry (03/11/21 21:50) Telemetry Nursing Assessment ( (03/11/21 21:50) Basic Metabolic Panel (03/12/21 05:00) Cbc With Automated Diff (03/12/21 05:00) Magnesium (03/12/21 05:00) Phosphorus (03/12/21 05:00) Warfarin Tablet (Coumadin Tablet) (03/12/21 08:45) Protime With Inr (03/13/21 05:00) Protime With Inr (03/14/21 05:00) Protime With Inr (03/15/21 05:00) Warfarin Tablet (Coumadin Tablet) (03/12/21 12:45) ALYCE CASTANEDA MD Mar 12, 2021 18:23
== END 2021-03-12 19:03 | disposition home or self-care (01) | DRG 78 ==
LOC: EDUNIT# 16:32 → ER 16:33 → ICU 17:05
PROVIDERS: ADMIT Family Medicine; ATTEND Family Medicine
DX: I67.4 Hypertensive encephalopathy (principal); D68.51 Activated protein C resistance; I16.0 Hypertensive urgency; I10 Essential (primary) hypertension; N40.0 Benign prostatic hyperplasia without lower urinary tract symptoms; E78.00 Pure hypercholesterolemia, unspecified; E78.5 Hyperlipidemia, unspecified; M50.222 Other cervical disc displacement at C5-C6 level; M19.91 Primary osteoarthritis, unspecified site; Z95.820 Peripheral vascular angioplasty status with implants and grafts; I65.23 Occlusion and stenosis of bilateral carotid arteries; Z87.891 Personal history of nicotine dependence; Z86.718 Personal history of other venous thrombosis and embolism; Z79.01 Long term (current) use of anticoagulants; Z88.6 Allergy status to analgesic agent; Z82.49 Family history of ischemic heart disease and other diseases of the circulatory system
CPT/HCPCS: 36415; 70450; 70551; 71045; 76770; 78452; 80048; 80053; 80061; 80306; 81000; 83735; 84100; 84484; 85025; 85610; 87081; 93005; 93017; 93041; 93306; 93880; 93975

== ENCOUNTER → 2021-03-14 | Outpatient (CLI) | payer MEDICARE ==
[~2021-03-14] MED LIST changes: +CATHETER FLUSH 10 ML SYR IV PRN; +HOLD METFORMIN - RECEIVED CONTRAST 20 ML VIAL IV SCH; +IOHEXOL 350 MG/ML 100 ML (OMNIPAQUE 350) VIAL IV ONE; +L.AC1CAP6 PO; +NS 100 ML (IVPB) BAG IV ONE; +UBID100C17 PO; +WARF-47 PO
--- NOTE | 2021-03-14 14:31 | Diagnostic Imaging Report ---
PROCEDURE: CT abdomen and pelvis with and without contrast. TECHNIQUE: Precontrast acquisitions were acquired through the abdomen and pelvis. Multiple contiguous axial images were obtained through the abdomen and pelvis after the administration of intravenous contrast. Auto Exposure Controls were utilized during the CT exam to meet ALARA standards for radiation dose reduction. INDICATION: Renal masses. The lung bases are clear. Liver contains low-attenuation lesions, largest left lobe measuring 4.2 cm in size and consistent with a cyst. Gallbladder is surgically absent. There is no biliary ductal dilatation. Pancreas and spleen are unremarkable. No adrenal mass is detected. There are numerous low-attenuation lesions involving both kidneys. The largest lesion on the right is in the upper and midportion measuring 5.8 cm AP by approximately 7.2 cm cephalocaudal. Large cystic lesion lower pole left kidney measures 7.9 cm in size. No contrast enhancement is identified. No solid lesion in the right kidney is identified. The questional solid mass noted on recent ultrasound may have represented normal renal tissue with some lobation of the kidney. Aorta is calcified. There is a filter in inferior vena cava. No central retroperitoneal or mesenteric lymphadenopathy is seen. The small and large bowel loops are normal caliber. There is no ascites. IMPRESSION: Bilateral renal as well as hepatic cysts. No definite solid renal mass is detected. Dictated by: Dictated on workstation # [id number]
== END ==
LOC: RAD 13:45
PROVIDERS: ATTEND Family Medicine
DX: N28.1 Cyst of kidney, acquired (principal); K76.89 Other specified diseases of liver
CPT/HCPCS: 74178

== ENCOUNTER 2021-11-04 05:31 | Emergency (ER) | payer MEDICARE ==
[~2021-11-04] VITALS: Ht 172.7 cm; Wt 90.7 kg
[~2021-11-04 05:31] MED LIST changes: -CATHETER FLUSH 10 ML SYR IV PRN; -HOLD METFORMIN - RECEIVED CONTRAST 20 ML VIAL IV SCH; -IOHEXOL 350 MG/ML 100 ML (OMNIPAQUE 350) VIAL IV ONE; -NS 100 ML (IVPB) BAG IV ONE
--- NOTE | 2021-11-04 05:56 | ED Chest Pain ---
General Chief Complaint: Cardiac/General Problems Stated Complaint: HIGH BLOOD PRESSURE 233/101,LEFT ARM & FACE NUMB Source: patient Exam Limitations: no limitations (RAHEEL EASTMAN) History of Present Illness Date Seen by Provider: Nov 04, 2021 Time Seen by Provider: 05:38 Initial Comments The patient presents to the ER by private conveyance from home with chief complaint he was woken about 0330 with some chest pressure across the front of his chest nonreproducible to palpation, burning sensation going down his left arm and up into his left face. At worst it was an 8 out of 10 but about few miles away from the ER is started to reduce and is now presently a 2 out of 10. He did not take anything for it other than on amlodipine because he noticed his blood pressure was high at 220/110. He has a history of significant hyperte nsion on amlodipine 10 mg, lisinopril 20 mg and Coreg 6.25 mg. He has a stent in his renal artery. No history of heart disease stents or OR. He has had a heart catheterization the same time that his doctor did his renal stent in [place]. It did not find anything worrisome according to him and he has had multiple negative stress test since then with Dr. Reddy. He says about once a year he has significant chest pressure/pain just like this and they have yet to figure it out. He is not having any weakness, numbness, difficulty with walking. He is having some mild nausea but no vomiting. No abdominal pain. No chest surgeries or trauma. No history of COPD or asthma. He quit smoking in the 80s. He does not have hyperlipidemia nor does he have diabetes. His allergy to aspirin involves hives. He is on warfarin for factor V Leiden with a history of DVTs. Last PT/INR was 1.9 and he had his medications adjusted up but he does not remember the dose. (RAHEEL EASTMAN) Allergies and Home Medications Allergies Coded Allergies: aspirin (Unverified Allergy, Mild, HIVES, 12/23/09) Patient Home Medication List Home Medication List Reviewed: Yes (RAHEEL EASTMAN) Acetaminophen (Tylenol Arthritis) 650 Mg Tablet.er, 1,300 MG PO BID PRN for PAIN-MILD, (Reported) Entered as Reported by: VIKRAM FREDERICK on 02/13/19 1429 Amlodipine Besylate (Amlodipine Besylate) 10 Mg Tablet, 10 MG PO DAILY Prescribed by: ALYCE FAJARDO on 03/12/211820 Carvedilol (Carvedilol) 12.5 Mg Tablet, 25 MG PO BID Prescribed by: ALYCE FAJARDO on 03/12/211820 Clopidogrel Bisulfate (Clopidogrel) 75 Mg Tablet, 75 MG PO DAILY Prescribed by: ALYCE FAJARDO on 03/12/211820 L.acidoph & Paracasei,B.lactis (Probiotic) 1 Each Capsule, 1 EACH PO BID, (Reported) Entered as Reported by: ELIZABETH ISRAEL on 03/11/21 1431 Lisinopril (Lisinopril) 40 Mg Tablet, 20 MG PO BID, (Reported) Entered as Reported by: VIKRAM FREDERICK on 02/13/19 1429 Magnesium Oxide (Magnesium) 250 Mg Tablet, 250 MG PO BID, (Reported) Entered as Reported by: ALVIN OSUNA on 11/10/18 1242 Tamsulosin HCl (Flomax) 0.4 Mg Cap, 0.4 MG PO BID, (Reported) Entered as Reported by: VIKRAM FREDERICK on 02/13/19 1429 Ubidecarenone (Coq-10) 100 Mg Capsule, 100 MG PO DAILY, (Reported) Entered as Reported by: ELIZABETH ISRAEL on 03/11/21 1431 Warfarin Sodium (Warfarin Sodium) 2 Mg Tablet, 1 MG PO BID, (Reported) Entered as Reported by: DUKE SCHNEIDER on 03/11/21 0810 Review of Systems Review of Systems Constitutional: No chills, No diaphoresis, No fever, No malaise EENTM: No Blurred Vision, No Double Vision Respiratory: Denies Cough, Denies Shortness of Air, Denies SOA at Rest Cardiovascular: See HPI, Chest Pain; Denies Edema, Denies Irregular Heart Rate Gastrointestinal: Denies Abdomen Distended, Denies Abdominal Pain, Denies Constipated, Denies Diarrhea, Denies Difficulty Swallowing, Denies Nausea Genitourinary: Denies Burning, Denies Discharge Musculoskeletal: No back pain, No joint pain Skin: No pruritus, No rash Psychiatric/Neurological: Denies Anxiety, Denies Depressed (RAHEEL EASTMAN) All Other Systems Reviewed Negative Unless Noted: Yes (RAHEEL EASTMAN) Past Cxwrxka-Mstphd-Owhuna Hx Patient Social History Tobacco Use?: No Smoking Status: Former Smoker Use of E-Cig and/or Vaping dev: No Substance use?: No Alcohol Use?: No (RAHEEL EASTMAN) Seasonal Allergies Seasonal Allergies: No (RAHEEL EASTMAN) Past Medical History Surgeries: Yes (RENAL STENTS, LISA FILTER) Abdominal, Orthopedic, Renal, Vascular Surgery Respiratory: No Cardiac: Yes (renal artery stenosis status post stenting) Deep Vein Thrombosis, High Cholesterol, Hypertension, Peripheral Vascular Neurological: No Reproductive Disorders: No Sexually Transmitted Disease: No Genitourinary: Yes Benign Prostatic Hyperpl Gastrointestinal: No Musculoskeletal: Yes (Disc bulging at C5-C6) Arthritis Endocrine: No HEENT: No Loss of Vision: Denies Hearing Impairment: Denies Cancer: No Psychosocial: No Integumentary: No Blood Disorders: Yes (Factor V Leiden) (RAHEEL EASTMAN) Family Medical History Family history: Hypertension 03 FATHER 03 MOTHER 09 SISTER History of - disorder 03 FATHER (PASSED FROM ALS LIKE SYMPTOMS, BLOOD CLOTTING DISORDER ) 03 MOTHER Hypercholesterolemia 09 SISTER Myocardial infarction 03 MOTHER Neoplasm 03 MOTHER Stroke 03 MOTHER, Onset:60 years & older Hypertension, Stroke, Other Conditions/Hx (RAHEEL EASTMAN) Physical Exam Vital Signs Vital Signs - First Documented (ALVARO DE LA TORRE MD) Vital Signs Capillary Refill : (RAHEEL EASTMAN) Height, Weight, BMI Height: 5'8.00" Weight: 205lbs. 4.8oz. 93.376795qi; 30.82 BMI Method:Stated General Appearance: No Apparent Distress, WD/WN HEENT: PERRL/EOMI, TMs Normal, Pharynx Normal, Moist Mucous Membranes Neck: Full Range of Motion, Normal Inspection Respiratory: Chest Non Tender, Lungs Clear, Normal Breath Sounds, No Accessory Muscle Use, No Respiratory Distress; No Accessory Muscle Use Cardiovascular: Regular Rate, Rhythm, No Edema, Normal Peripheral Pulses Gastrointestinal: Normal Bowel Sounds, Non Tender, Soft Extremity: Normal Capillary Refill, Normal Inspection, Normal Range of Motion, No Pedal Edema Neurologic/Psychiatric: Alert, Oriented x3, No Motor/Sensory Deficits, Normal Mood/Affect Skin: Normal Color, Warm/Dry (RAHEEL EASTMAN) Progress/Results/Core Measures Results/Orders Lab Results Laboratory Tests Test 11/04/21 05:50 11/04/21 07:57 Range/Units White Blood Count 9.1 4.3-11.0 10^3/uL Red Blood Count 5.48 4.30-5.52 10^6/uL Hemoglobin 16.2 13.3-17.7 g/dL Hematocrit 48 40-54 % Mean Corpuscular Volume 87 80-99 fL Mean Corpuscular Hemoglobin 30 25-34 pg Mean Corpuscular Hemoglobin Concent 34 32-36 g/dL Red Cell Distribution Width 12.6 10.0-14.5 % Platelet Count 238 130-400 10^3/uL Mean Platelet Volume 10.2 9.0-12.2 fL Immature Granulocyte % (Auto) 0 % Neutrophils (%) (Auto) 59 42-75 % Lymphocytes (%) (Auto) 30 12-44 % Monocytes (%) (Auto) 8 0-12 % Eosinophils (%) (Auto) 2 0-10 % Basophils (%) (Auto) 1 0-10 % Neutrophils # (Auto) 5.3 1.8-7.8 10^3/uL Lymphocytes # (Auto) 2.7 1.0-4.0 10^3/uL Monocytes # (Auto) 0.7 0.0-1.0 10^3/uL Eosinophils # (Auto) 0.2 0.0-0.3 10^3/uL Basophils # (Auto) 0.1 0.0-0.1 10^3/uL Immature Granulocyte # (Auto) 0.0 0.0-0.1 10^3/uL Prothrombin Time 41.9 H 12.2-14.7 SEC INR Comment 4.3 H 0.8-1.4 Activated Partial Thromboplast Time 81 H 24-35 SEC D-Dimer 0.36 0.00-0.49 UG/ML Sodium Level 137 135-145 MMOL/L Potassium Level 4.2 3.6-5.0 MMOL/L Chloride Level 105 98-107 MMOL/L Carbon Dioxide Level 21 21-32 MMOL/L Anion Gap 11 5-14 MMOL/L Blood Urea Nitrogen 18 7-18 MG/DL Creatinine 1.37 H 0.60-1.30 MG/DL Estimat Glomerular Filtration Rate 54 BUN/Creatinine Ratio 13 Glucose Level 137 H 70-105 MG/DL Calcium Level 9.1 8.5-10.1 MG/DL Corrected Calcium 9.0 8.5-10.1 MG/DL Magnesium Level 1.8 1.6-2.4 MG/DL Total Bilirubin 0.5 0.1-1.0 MG/DL Aspartate Amino Transf (AST/SGOT) 27 5-34 U/L Alanine Aminotransferase (ALT/SGPT) 36 0-55 U/L Alkaline Phosphatase 153 H 40-136 U/L Myoglobin 60.4 10.0-92.0 NG/ML Troponin I < 0.028 < 0.028 <0.028 NG/ML B-Type Natriuretic Peptide 10.2 <100.0 PG/ML Total Protein 7.7 6.4-8.2 GM/DL Albumin 4.1 3.2-4.5 GM/DL Lipase 24 8-78 U/L (ALVARO DE LA TORRE MD) My Orders Orders - ALVARO DE LA TORRE MD General/Regular (11/04/21 Breakfast) Troponin I Rankin (11/04/21 07:50) (ALVARO DE LA TORRE MD) Medications Given in ED Current Medications Medications Dose Ordered Sig/Maynor Route Start Time Stop Time Status Last Admin Dose Admin Nitroglycerin 0.4 mg UD PRN SL 11/04/21 06:00 11/04/21 06:05 0.4 MG Ondansetron HCl 4 mg ONCE ONCE IVP 11/04/21 06:00 11/04/21 06:01 DC 11/04/21 06:05 4 MG (ALVARO DE LA TORRE MD) Vital Signs/I&O 11/04/21 11/04/21 11/04/21 05:40 05:40 06:31 Temp 36.7 Pulse 68 62 Resp 14 16 B/P (MAP) 219/107 (144) 134/77 Pulse Ox 68 97 97 O2 Delivery Room Air Room Air Room Air (ALVARO DE LA TORRE MD) Progress Progress Note : Time: 06:01 Progress Note Hypertensive emergency. We will treat his chest pressure and blood pressure with some nitroglycerin initially. EKG unremarkable. We will give him his morning blood pressure medications and reassess. (RAHEEL EASTMAN) Progress Note : Progress Note 0645: I have assumed care of the patient from Dr. Eastman at shift change pending labs. Blood pressure improving. I have seen the patient and he is currently without pain or other concerns. I did discuss with him regarding his elevated INR and he will skip his dose today of warfarin 2 mg. Initial troponin is negative. We will repeat troponin at 0750. Blood pressure ranging 130s to 170s. He will get his home medicine and we will watch him through this time. All questions answered. Patient comfortable and without chest pain currently and overall feels much better. He did receive one nitroglycerin only. Monitor patient. 0945: Blood pressure still 130s to 150s systolic and he is doing much better. Repeat troponin negative. I will send a copy of the chart over to his primary care doctor, Dr. FAJARDO. Points of discussion for her would be breakthrough medicine for hypertensive urgency and also consideration of other form of anticoagulation than warfarin. Patient would like to talk to her about that. He will again hold his warfarin today due to the INR 4.3. Discharged home with return precautions. Patient verbalized understanding instructions and agreement with plan. (ALVARO DE LA TORRE MD) Initial ECG Impression Date: Nov 04, 2021 Initial ECG Impression Time: 05:43 Initial ECG Rate: 67 Initial ECG Rhythm: Normal Sinus Initial ECG Intervals: Normal Initial ECG Impression: Normal Comment Normal sinus rhythm without clinically relevant ST elevation or depression. (RAHEEL EASTMAN) Diagnostic Imaging Diagonstic Imaging: Xray Plain Films/CT/US/NM/MRI: chest Reviewed: Reviewed by Me (RAHEEL EASTMAN) Comments [facility], [place] NAME: AMBER MONTEIRO [facility] REC#: [id number] PT STATUS: REG ER : 1945 PHYSICIAN: RAHEEL EASTMAN MD ADMIT DATE: 11/04/21/ER Draft Date of Exam:11/04/21 CHEST 1 VIEW, AP/PA ONLY CLINICAL INDICATION: Patient with chest pain. EXAM: Portable chest x-ray upright view. COMPARISON: Chest x-ray dated 03/10/2021. FINDINGS: Slight elevation of the right hemidiaphragm is noted. Lungs/pleura: Lungs are clear. There is no pneumothorax. There is no pleural effusion. Mediastinum: Unremarkable. Pulmonary vasculature: Unremarkable. Heart: Unremarkable. Bones/extrathoracic soft tissue: There are degenerative spurs involving the thoracic spine. Lower cervical ACDF again noted. IMPRESSION: There is no radiographic evidence of acute cardiopulmonary process. Dictated on workstation # [id number] Dict: 11/04/21705 Trans: 11/04/21709 [id number] Interpreted by: JEFFERY LUNSFORD MD Electronically signed by: (ALVARO DE LA TORRE MD) Departure Impression Primary Impression: Labile hypertension Additional Impression: Supratherapeutic INR Disposition: 01 HOME, SELF-CARE Condition: Improved Departure-Patient Inst. Decision time for Depature: 09:04 (ALVARO DE LA TORRE MD) Referrals: ALYCE FAJARDO MD (PCP/Family) Primary Care Physician Patient Instructions: High Blood Pressure in Adults Add. Discharge Instructions: All discharge instructions reviewed with patient and/or family. Voiced understanding. Hold your warfarin today and restart that tomorrow. Take other medications as previously prescribed. Follow-up with Dr. Fajardo for recheck and further evaluation and to discuss breakthrough blood pressure medicine and consideration of changing from warfarin to other anticoagulant that might be easier for you to manage. Return for chest pain, fever, vomiting, weakness, breathing problems, sweating, dizziness or other concerns as needed. Copy Copies To 1: ALYCE FAJARDO MD, TITUS J Nov 04, 2021 05:55 ALVARO DE LA TORRE MD Nov 04, 2021 06:58
[2021-11-04] MEDS ORDERED: lisINopril 20 MG (PRINIVIL) TABLET PO ONE (06:00)
[2021-11-04] MEDS ORDERED: ONDANSETRON 4 MG/2 ML (SDV) Z0FRAN IVP ONE (06:00)
[2021-11-04] MEDS ORDERED: NITROGLYCERIN 0.4 MG SL TABS BTL 25'S SL PRN (06:00)
[2021-11-04 06:03] LABS: BASOPHILS # (AUTO) 0.1 10^3/uL (0.0-0.1); BASOPHILS % (AUTO) 1 % (0-10); EOSINOPHILS # (AUTO) 0.2 10^3/uL (0.0-0.3); EOSINOPHILS % (AUTO) 2 % (0-10); HEMATOCRIT 48 % (40-54); HEMOGLOBIN 16.2 g/dL (13.3-17.7); LYMPHOCYTES # (AUTO) 2.7 10^3/uL (1.0-4.0); LYMPHOCYTES % (AUTO) 30 % (12-44); MEAN CORPUSCULAR HEMOGLOBIN 30 pg (25-34); MEAN CORPUSCULAR HGB CONC 34 g/dL (32-36); MEAN CORPUSCULAR VOLUME 87 fL (80-99); MEAN PLATELET VOLUME 10.2 fL (9.0-12.2); MONOCYTES # (AUTO) 0.7 10^3/uL (0.0-1.0); MONOCYTES % (AUTO) 8 % (0-12); NEUTROPHILS # (AUTO) 5.3 10^3/uL (1.8-7.8); NEUTROPHILS % (AUTO) 59 % (42-75); PLATELET COUNT 238 10^3/uL (130-400); WHITE BLOOD COUNT 9.1 10^3/uL (4.3-11.0)
[2021-11-04 06:14] LABS: ALBUMIN 4.1 GM/DL (3.2-4.5); CHLORIDE 105 MMOL/L (98-107); POTASSIUM 4.2 MMOL/L (3.6-5.0); SODIUM 137 MMOL/L (135-145)
[2021-11-04 06:15] LABS: CALCIUM 9.1 MG/DL (8.5-10.1)
[2021-11-04 06:16] LABS: GLUCOSE 137 MG/DL (70-105); TOTAL PROTEIN 7.7 GM/DL (6.4-8.2)
[2021-11-04 06:17] LABS: CARBON DIOXIDE 21 MMOL/L (21-32)
[2021-11-04 06:18] LABS: BILIRUBIN,TOTAL 0.5 MG/DL (0.1-1.0); FIBRIN DEGRADATION PRODUCTS 0.36 UG/ML (0.00-0.49); INR 4.3 (0.8-1.4); PROTHROMBIN TIME PATIENT 41.9 SEC (12.2-14.7)
[2021-11-04 06:20] LABS: ALKALINE PHOSPHATASE 153 U/L (40-136); CREATININE SERUM 1.37 MG/DL (0.60-1.30); GFR ESTIMATED 54
[2021-11-04 06:21] LABS: BUN/CREATININE RATIO 13
[2021-11-04 06:22] LABS: MAGNESIUM 1.8 MG/DL (1.6-2.4)
[2021-11-04 06:23] LABS: ALANINE AMINOTRANSFERASE 36 U/L (0-55)
[2021-11-04 06:24] LABS: LIPASE 24 U/L (8-78)
--- NOTE | 2021-11-04 07:10 | Diagnostic Imaging Report ---
CLINICAL INDICATION: Patient with chest pain. EXAM: Portable chest x-ray upright view. COMPARISON: Chest x-ray dated 03/10/2021. FINDINGS: Slight elevation of the right hemidiaphragm is noted. Lungs/pleura: Lungs are clear. There is no pneumothorax. There is no pleural effusion. Mediastinum: Unremarkable. Pulmonary vasculature: Unremarkable. Heart: Unremarkable. Bones/extrathoracic soft tissue: There are degenerative spurs involving the thoracic spine. Lower cervical ACDF again noted. IMPRESSION: There is no radiographic evidence of acute cardiopulmonary process. Dictated by: Dictated on workstation # [id number]
[2021-11-04 09:11] VITALS: BP 132/73
== END 2021-11-04 09:13 | disposition home or self-care (01) ==
LOC: EDUNIT# 05:31 → ER 05:35
DX: I10 Essential (primary) hypertension (principal); R79.1 Abnormal coagulation profile; N40.0 Benign prostatic hyperplasia without lower urinary tract symptoms; Z87.891 Personal history of nicotine dependence; Z86.718 Personal history of other venous thrombosis and embolism; Z79.01 Long term (current) use of anticoagulants
CPT/HCPCS: 36415; 71045; 80053; 83690; 83735; 83874; 83880; 84484; 85025; 85379; 85610; 85730; 93005; 93041

== ENCOUNTER → 2021-11-11 | Outpatient (CLI) | payer MEDICARE ==
--- NOTE | 2021-11-11 12:21 | Diagnostic Imaging Report ---
EXAMINATION: US RENAL ART DOPPLER JULIANNE COMP. INDICATION: Renal cyst. COMPARISON: CT abdomen/pelvis from 03/14/2021. TECHNIQUE: Color Doppler, grayscale, and spectral Doppler imaging of the kidneys was performed. FINDINGS: Right side: The right kidney measures 11 cm in length. The 6.5 x 5.0 x 6.0 cm exophytic cyst off the mid right kidney is unchanged and has no mural nodularity or septations. Color Doppler imaging shows patency of the arcuate and interlobular arteries with normal low resistance waveforms. Main renal artery is patent with normal resistive indices. Maximal peak systolic velocity within the right renal artery is 120 cm/s. Left side: The left kidney measures 13 cm in length. No solid mass within the left kidney. Exophytic cyst off the lower pole is stable in size measuring 5.2 x 6.8 x 3.8 cm and there are a few septations present. Color Doppler imaging shows patency of the arcuate and main renal arteries. Normal low resistive waveforms are present. No elevated peak systolic velocities within the left renal artery with a maximal peak systolic velocity of 53 cm/s. IMPRESSION: 1. Stable bilateral simple renal cysts. 2. No renal artery stenosis. Dictated by: Dictated on workstation # [id number]
== END ==
LOC: RAD 09:15
PROVIDERS: ATTEND Nurse Practitioner Family
DX: N28.1 Cyst of kidney, acquired (principal); N13.5 Crossing vessel and stricture of ureter without hydronephrosis
CPT/HCPCS: 76770; 93975

== ENCOUNTER 2021-11-18 06:55 | Emergency (ER) | payer MEDICARE ==
[~2021-11-18] VITALS: Ht 172 cm; Wt 90.7 kg
[2021-11-18 07:26] LABS: BASOPHILS # (AUTO) 0.1 10^3/uL (0.0-0.1); BASOPHILS % (AUTO) 1 % (0-10); EOSINOPHILS # (AUTO) 0.3 10^3/uL (0.0-0.3); EOSINOPHILS % (AUTO) 3 % (0-10); HEMATOCRIT 46 % (40-54); HEMOGLOBIN 15.7 g/dL (13.3-17.7); LYMPHOCYTES # (AUTO) 2.1 10^3/uL (1.0-4.0); LYMPHOCYTES % (AUTO) 22 % (12-44); MEAN CORPUSCULAR HEMOGLOBIN 29 pg (25-34); MEAN CORPUSCULAR HGB CONC 34 g/dL (32-36); MEAN CORPUSCULAR VOLUME 86 fL (80-99); MEAN PLATELET VOLUME 10.2 fL (9.0-12.2); MONOCYTES # (AUTO) 0.7 10^3/uL (0.0-1.0); MONOCYTES % (AUTO) 7 % (0-12); NEUTROPHILS # (AUTO) 6.5 10^3/uL (1.8-7.8); NEUTROPHILS % (AUTO) 67 % (42-75); PLATELET COUNT 244 10^3/uL (130-400); WHITE BLOOD COUNT 9.7 10^3/uL (4.3-11.0)
--- NOTE | 2021-11-18 07:35 | ED Chest Pain ---
General Chief Complaint: Abdominal/GI Problems Stated Complaint: HIGH BLOOD PRESSURE 225/109 Nursing Triage Note: ARRIVED VIA AMB TO ROOM 06 WITH COMPLAINTS OF HIGH BLOOD PRESSURE, CHEST PRESSURE, AND LEFT ARM PAIN STARTING AT 0400. 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 Source: patient, old records Exam Limitations: no limitations History of Present Illness Date Seen by Provider: Nov 18, 2021 Time Seen by Provider: 06:58 Initial Comments This 75-year-old gentleman presents to the emergency room with complaints of labile hypertension and chest pressure. He woke this morning a little bit before 0 500 with chest pressure. He had blood pressures at home of 193/85 and 182/100. He took 10 mg of hydralazine as he was instructed to do for hypertensive episodes. His chest pressure has since resolved. He normally takes lisinopril 20 mg and carvedilol 6.25 mg around this time each morning. He has not yet taken these doses. He also takes amlodipine 2.5 mg every other day. His last dose of amlodipine was last night. He states he cannot take amlodipine every day because it drops his blood pressures too low. Review of his chart notes a stress test performed in 2020 revealing no ischemia and a normal systolic function with ejection fraction of 71%. He is not having any chest pain at present. Systolic blood pressure is over 200 at this time. Review of his chart also notes a history of renal artery stenosis status post stenting and history of DVT and factor V Leiden prompting anticoagulation therapy with warfarin. He was seen November 04 for another hypertensive episode. His INR was supratherapeutic at that time. At that time he received a thorough work-up including a negative delta troponin. Patient states that he feels "terrible all over" in addition to having chest pressure during these hypertensive episodes. Allergies and Home Medications Allergies Coded Allergies: aspirin (Unverified Allergy, Mild, HIVES, 12/23/09) Patient Home Medication List Home Medication List Reviewed: Yes Acetaminophen (Tylenol Arthritis) 650 Mg Tablet.er, 1,300 MG PO BID PRN for PAIN-MILD, (Reported) Entered as Reported by: VIKRAM FREDERICK on 02/13/19 1429 Amlodipine Besylate (Amlodipine Besylate) 10 Mg Tablet, 10 MG PO DAILY Prescribed by: ALYCE CASTANEDA on 03/12/21 182 Carvedilol (Carvedilol) 12.5 Mg Tablet, 25 MG PO BID Prescribed by: ALYCE CASTANEDA on 03/12/211820 Clopidogrel Bisulfate (Clopidogrel) 75 Mg Tablet, 75 MG PO DAILY Prescribed by: ALYCE CASTANEDA on 03/12/211820 L.acidoph & Paracasei,B.lactis (Probiotic) 1 Each Capsule, 1 EACH PO BID, (Reported) Entered as Reported by: ELIZABETH ISRAEL on 03/11/21 1431 Lisinopril (Lisinopril) 40 Mg Tablet, 20 MG PO BID, (Reported) Entered as Reported by: VIKRAM FREDERICK on 02/13/19 1429 Magnesium Oxide (Magnesium) 250 Mg Tablet, 250 MG PO BID, (Reported) Entered as Reported by: ALVIN OSUNA on 11/10/18 1242 Tamsulosin HCl (Flomax) 0.4 Mg Cap, 0.4 MG PO BID, (Reported) Entered as Reported by: VIKRAM FREDERICK on 02/13/19 1429 Ubidecarenone (Coq-10) 100 Mg Capsule, 100 MG PO DAILY, (Reported) Entered as Reported by: ELIZABETH ISRAEL on 03/11/21 1431 Warfarin Sodium (Warfarin Sodium) 2 Mg Tablet, 1 MG PO BID, (Reported) Entered as Reported by: DUKE SCHNEIDER on 03/11/21 0810 Review of Systems Review of Systems Constitutional: see HPI EENTM: No Symptoms Reported Respiratory: No Symptoms Reported Cardiovascular: See HPI Gastrointestinal: No Symptoms Reported Genitourinary: No Symptoms Reported Musculoskeletal: no symptoms reported Skin: no symptoms reported Psychiatric/Neurological: No Symptoms Reported Endocrine: No Symptoms Reported Hematologic/Lymphatic: No Symptoms Reported Past Zxcjeyl-Pvrfis-Amvymx Hx Patient Social History Tobacco Use?: No Substance use?: No Alcohol Use?: No Immunizations Up To Date COVID19 Vaccine 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: MODERNA Seasonal Allergies Seasonal Allergies: No Past Medical History Surgeries: Yes (RENAL STENTS, LISA FILTER) Abdominal, Orthopedic, Renal, Vascular Surgery Respiratory: No Cardiac: Yes (renal artery stenosis status post stenting) Deep Vein Thrombosis, High Cholesterol, Hypertension, Peripheral Vascular Neurological: No Reproductive Disorders: No Sexually Transmitted Disease: No Genitourinary: Yes Benign Prostatic Hyperpl Gastrointestinal: No Musculoskeletal: Yes (Disc bulging at C5-C6) Arthritis Endocrine: No HEENT: No Loss of Vision: Denies Hearing Impairment: Denies Cancer: No Psychosocial: No Integumentary: No Blood Disorders: Yes (Factor V Leiden) Family Medical History Reviewed Nursing Family Hx Family history: Hypertension 03 FATHER 03 MOTHER 09 SISTER History of - disorder 03 FATHER (PASSED FROM ALS LIKE SYMPTOMS, BLOOD CLOTTING DISORDER ) 03 MOTHER Hypercholesterolemia 09 SISTER Myocardial infarction 03 MOTHER Neoplasm 03 MOTHER Stroke 03 MOTHER, Onset:60 years & older Hypertension, Stroke, Other Conditions/Hx Physical Exam Vital Signs Vital Signs - First Documented 11/18/21 06:55 Temp 36.3 Pulse 70 Resp 16 B/P (MAP) 208/94 (132) Pulse Ox 96 O2 Delivery Room Air Capillary Refill : Less Than 3 Seconds Height, Weight, BMI Height: 5'8.00" Weight: 205lbs. 4.8oz. [id number]; 30.00 BMI Method:Stated General Appearance: No Apparent Distress, WD/WN HEENT: PERRL/EOMI, Normal ENT Inspection Neck: Normal Inspection; No JVD Respiratory: Lungs Clear, Normal Breath Sounds, No Accessory Muscle Use, No Respiratory Distress Cardiovascular: Regular Rate, Rhythm, No Edema, No Murmur Gastrointestinal: Normal Bowel Sounds, Non Tender, Soft Extremity: Normal Inspection, Non Tender, No Pedal Edema Neurologic/Psychiatric: Alert, Oriented x3, No Motor/Sensory Deficits, Normal Mood/Affect, pan shover II-XII Norm as Tested Skin: Normal Color, Warm/Dry Progress/Results/Core Measures Results/Orders Lab Results Laboratory Tests Test 11/18/21 07:14 11/18/21 09:17 Range/Units White Blood Count 9.7 4.3-11.0 10^3/uL Red Blood Count 5.35 4.30-5.52 10^6/uL Hemoglobin 15.7 13.3-17.7 g/dL Hematocrit 46 40-54 % Mean Corpuscular Volume 86 80-99 fL Mean Corpuscular Hemoglobin 29 25-34 pg Mean Corpuscular Hemoglobin Concent 34 32-36 g/dL Red Cell Distribution Width 12.8 10.0-14.5 % Platelet Count 244 130-400 10^3/uL Mean Platelet Volume 10.2 9.0-12.2 fL Immature Granulocyte % (Auto) 0 % Neutrophils (%) (Auto) 67 42-75 % Lymphocytes (%) (Auto) 22 12-44 % Monocytes (%) (Auto) 7 0-12 % Eosinophils (%) (Auto) 3 0-10 % Basophils (%) (Auto) 1 0-10 % Neutrophils # (Auto) 6.5 1.8-7.8 10^3/uL Lymphocytes # (Auto) 2.1 1.0-4.0 10^3/uL Monocytes # (Auto) 0.7 0.0-1.0 10^3/uL Eosinophils # (Auto) 0.3 0.0-0.3 10^3/uL Basophils # (Auto) 0.1 0.0-0.1 10^3/uL Immature Granulocyte # (Auto) 0.0 0.0-0.1 10^3/uL Prothrombin Time 23.5 H 12.2-14.7 SEC INR Comment 2.0 H 0.8-1.4 Activated Partial Thromboplast Time 41 H 24-35 SEC Sodium Level 139 135-145 MMOL/L Potassium Level 4.0 3.6-5.0 MMOL/L Chloride Level 107 98-107 MMOL/L Carbon Dioxide Level 21 21-32 MMOL/L Anion Gap 11 5-14 MMOL/L Blood Urea Nitrogen 14 7-18 MG/DL Creatinine 1.22 0.60-1.30 MG/DL Estimat Glomerular Filtration Rate 62 BUN/Creatinine Ratio 11 Glucose Level 130 H 70-105 MG/DL Calcium Level 9.1 8.5-10.1 MG/DL Corrected Calcium 9.1 8.5-10.1 MG/DL Magnesium Level 1.8 1.6-2.4 MG/DL Total Bilirubin 0.5 0.1-1.0 MG/DL Aspartate Amino Transf (AST/SGOT) 24 5-34 U/L Alanine Aminotransferase (ALT/SGPT) 32 0-55 U/L Alkaline Phosphatase 142 H 40-136 U/L Myoglobin 58.2 10.0-92.0 NG/ML Troponin I < 0.028 < 0.028 <0.028 NG/ML B-Type Natriuretic Peptide 21.2 <100.0 PG/ML Total Protein 7.6 6.4-8.2 GM/DL Albumin 4.0 3.2-4.5 GM/DL TSH [place] Testing 1.14 0.35-4.94 UIU/ML My Orders Orders - BRUEGGEMANN,DARIEL T MD Chest 1 View, Ap/Pa Only (11/18/21 06:58) Ekg Tracing (11/18/21 06:58) Thyroid Analyzer (11/18/21 06:59) Cbc With Automated Diff (11/18/21 06:58) Magnesium (11/18/21 06:58) Comprehensive Metabolic Panel (11/18/21 06:58) Myoglobin Serum (11/18/21 06:58) Protime With Inr (11/18/21 06:58) Partial Thromboplastin Time (11/18/21 06:58) O2 (11/18/21 06:58) Monitor-Rhythm Ecg Trace Only (11/18/21 06:58) Lipid Panel (11/19/21 06:00) Ed Iv/Invasive Line Start (11/18/21 06:58) Bnp Mellissa (11/18/21 06:58) Troponin I [place] (11/18/21 06:58) Troponin I [place] (11/18/21 09:15) Vital Signs/I&O 11/18/21 06:55 Temp 36.3 Pulse 70 Resp 16 B/P (MAP) 208/94 (132) Pulse Ox 96 O2 Delivery Room Air Blood Pressure Mean: 132 Progress Progress Note #1: Time: 07:37 Progress Note Patient was seen and examined. We will give him his usual morning doses of lisinopril and carvedilol and observe his blood pressures while we proceed with work-up. EKG was unremarkable. He is not presently having any chest pain or pressure. Progress Note #2: Time: 10:41 Progress Note Repeat troponin was normal. Patient was feeling improved and systolic blood pressures had decreased to the 150-180 range and diastolic blood pressures had decreased to the 80-100 range. I discussed with Dr. Tapia. He recommended consistent use of amlodipine daily and possibly increasing the dose to 5 mg daily. Patient states if he even takes 2.5 mg daily he experiences intolerably low systolic blood pressures under 115. As amlodipine has a long half-life of 30+ hours, it is understandable that he may have prolonged effects and cumulative effects of higher doses. I have recommended a compromise of taking 2.5 mg every other day and 1.25 mg on the other days. He is agreeable to this idea. Dr. Tapia did offer admission if patient chose for further evaluation of his chest pain. Patient has now had 2 cardiac rule outs in the ER this month and had a negative stress test last year. He elects to return home and follow- up as an outpatient. Dr. Tapia was notified. Initial ECG Impression Date: Nov 18, 2021 Initial ECG Impression Time: 07:01 Initial ECG Rate: 73 Initial ECG Rhythm: Normal Sinus Initial ECG Intervals: Normal Initial ECG Impression: Normal Comment Normal sinus rhythm with no ST elevation or depression. No abnormal intervals or axis deviation. Diagnostic Imaging Diagonstic Imaging: Xray Plain Films/CT/US/NM/MRI: chest Comments Chest x-ray viewed by me and report reviewed. See report below: NAME: AMBER MONTEIRO [facility] REC#: [id number] PT STATUS: REG ER : 1945 PHYSICIAN: DARIEL LAGUNA MD ADMIT DATE: 11/18/21/ER Draft Date of Exam:11/18/21 CHEST 1 VIEW, AP/PA ONLY EXAM: CHEST 1 VIEW, AP/PA ONLY INDICATION: Chest pain. COMPARISON: 11/04/2021. FINDINGS: Normal heart size and pulmonary vascularity. No dense consolidation, pleural effusion or pneumothorax. No acute osseous findings. No significant change. IMPRESSION: No acute cardiopulmonary findings. Dictated on workstation # [id number] Dict: 11/18/21 0729 Trans: 11/18/21 0733 [id number] Interpreted by: MOISES CASTANO MD Departure Impression Primary Impression: Labile hypertension Additional Impression: Chest pain Disposition: 01 HOME, SELF-CARE Condition: Improved Departure-Patient Inst. Decision time for Depature: 10:36 Referrals: ALYCE CASTANEDA MD (PCP/Family) Primary Care Physician Patient Instructions: High Blood Pressure ED Add. Discharge Instructions: Drink plenty of water and avoid things that can elevate your blood pressure such as excessive salt, excessive caffeine use, and stimulants such as decongestants, energy drinks, diet pills, workout supplements, ADHD medications, etc. Continue taking your current doses of lisinopril and Coreg. Continue taking amlodipine 2.5 mg every other day but add in 1.25 mg every other day. If you are still experiencing high blood pressures after doing so for 3 or 4 days, increase amlodipine to 2.5 mg every day. You may continue using hydralazine for emergency treatment of severely high blood pressure as previously directed. Follow-up with Dr. Reddy as soon as possible. Call his office tomorrow to arr christopher your appointment. Call with questions or concerns. Return to the ER if you have worsening symptoms. All discharge instructions reviewed with patient and/or family. Voiced understanding. Copy Copies To 1: SUNNY REDDY MD FACP FAC CCDS Copies To 2: ALYCE CASTANEDA MD, JOSHUA T MD Nov 18, 2021 07:35
[2021-11-18 07:45] LABS: PROTHROMBIN TIME PATIENT 23.5 SEC (12.2-14.7)
[2021-11-18 07:46] LABS: CALCIUM 9.1 MG/DL (8.5-10.1)
[2021-11-18 07:48] LABS: TOTAL PROTEIN 7.6 GM/DL (6.4-8.2)
[2021-11-18 07:49] LABS: BILIRUBIN,TOTAL 0.5 MG/DL (0.1-1.0)
[2021-11-18 07:51] LABS: CREATININE SERUM 1.22 MG/DL (0.60-1.30)
[2021-11-18 07:54] LABS: MAGNESIUM 1.8 MG/DL (1.6-2.4)
[2021-11-18 08:14] LABS: TSH (THYROID ANALYZER) 1.14 UIU/ML (0.35-4.94)
[2021-11-18 10:59] VITALS: BP 182/92
== END 2021-11-18 10:59 | disposition home or self-care (01) ==
LOC: EDUNIT# 06:55 → ER 06:58
DX: I10 Essential (primary) hypertension (principal); R07.9 Chest pain, unspecified; N40.0 Benign prostatic hyperplasia without lower urinary tract symptoms; Z86.718 Personal history of other venous thrombosis and embolism; Z79.01 Long term (current) use of anticoagulants; Z79.899 Other long term (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
CPT/HCPCS: 36415; 71045; 80053; 83735; 83874; 83880; 84443; 84484; 85025; 85610; 85730; 93005; 93041

== ENCOUNTER 2021-12-03 12:29 | Outpatient (CLI) | payer MEDICARE | END 2021-12-03 12:50 | LOC: SLEEP 12:29 | PROVIDERS: ATTEND Nurse Practitioner Family | DX: G47.10 Hypersomnia, unspecified (principal); I10 Essential (primary) hypertension | CPT/HCPCS: G0399 ==

== ENCOUNTER 2022-03-26 20:42 | Outpatient (CLI) | payer MEDICARE | END 2022-03-27 06:20 | disposition home or self-care (01) | LOC: SLEEP 20:42 | PROVIDERS: ATTEND Otolaryngology Otolaryngology/Facial Plastic Surgery | DX: G47.33 Obstructive sleep apnea (adult) (pediatric) (principal) | CPT/HCPCS: 95811 ==

== ENCOUNTER → 2022-06-15 | Outpatient (CLI) | payer MEDICARE ==
--- NOTE | 2022-06-15 16:50 | Diagnostic Imaging Report ---
PROCEDURE: US carotid duplex, bilateral. TECHNIQUE: Multiple real-time grayscale images were obtained over the carotid arteries in various projections, bilaterally. Additional spectral analysis and color Doppler duplex images were also obtained. INDICATION: Occlusion of the carotid arteries. FINDINGS: Real-time imaging shows marked soft plaquing within the common carotid arteries and carotid bulbs bilaterally. There is antegrade flow throughout both carotid and vertebral arteries. There is marked elevated velocity within the right internal carotid artery with carotid ratio of 6.8 suggesting high-grade stenosis. Moderate plaquing on the left without Doppler findings to indicate hemodynamic stenosis. Both vertebral arteries are antegrade. External carotid arteries show minimal plaquing. IMPRESSION: There is bilateral soft plaquing within the carotid bulbs, more severe on the right with Doppler findings suggesting high-grade stenosis estimated 80% or greater. Would recommend CT angiography to further evaluate. Parameters based on the consensus panel Khalil-Scale and Doppler ultrasound criteria published July 2003, Radiology, Volume 229. DOPPLER (peak systolic velocity M/S Right Left CCA .45 .91 ICA Proximal 3.12 1.46 ICA Mid .79 .74 ICA Distal .69 .76 RATIO 6.86 1.60 ECA 1.24 1.52 VERT .41 .44 Dictated by: Dictated on workstation # [id number]
== END ==
LOC: RAD 13:11
PROVIDERS: ATTEND Family Medicine
DX: I65.23 Occlusion and stenosis of bilateral carotid arteries (principal); I10 Essential (primary) hypertension
CPT/HCPCS: 93880

== ENCOUNTER → 2022-09-04 | Outpatient (CLI) | payer MEDICARE ==
--- NOTE | 2022-09-04 14:08 | Diagnostic Imaging Report ---
PROCEDURE: US carotid duplex, bilateral. TECHNIQUE: Multiple real-time grayscale images were obtained over the carotid arteries in various projections, bilaterally. Additional spectral analysis and color Doppler duplex images were also obtained. INDICATION: History of carotid stenosis. Left-sided neck pain. History of stent on the right side in July. COMPARISON: 06/15/2022. FINDINGS: Right Carotid Circulation: The right common carotid artery is normal in course and caliber. A stent is seen within the right common carotid artery extending into the proximal right internal carotid artery. No in-stent stenosis is seen. Flow velocities are normal in the right carotid system. Left Carotid Circulation: The left common carotid artery is normal in course and caliber. Small amount of atherosclerotic plaque is seen in the left carotid bulb. No hemodynamically significant stenosis is present. Flow in the bilateral vertebral arteries is antegrade. IMPRESSION: 1. Patent stent within the right common and internal carotid arteries. No evidence of in-stent stenosis. 2. No elevated flow velocities within the bilateral carotid systems. The right ICA/CCA ratio is elevated at 1.76, although this does not correspond to any identifiable stenosis. 3. Small amount of atherosclerotic plaque in the left carotid bulb. 4. Antegrade flow in the bilateral vertebral arteries. Parameters based on the consensus panel Khalil-Scale and Doppler ultrasound criteria published July 2003, Radiology, Volume 229. DOPPLER (peak systolic velocity M/S Right Left CCA 68 68 ICA Proximal 120 75 ICA Mid 68 51 ICA Distal 67 53 RATIO 1.76 1.29 ECA 118 143 VERT 39 32 Dictated by: Dictated on workstation # [id number]
== END ==
LOC: RAD 12:57
PROVIDERS: ATTEND Registered Nurse Critical Care Medicine
DX: I65.22 Occlusion and stenosis of left carotid artery (principal); I10 Essential (primary) hypertension; M62.81 Muscle weakness (generalized); R07.89 Other chest pain; R20.2 Paresthesia of skin; Z95.5 Presence of coronary angioplasty implant and graft
CPT/HCPCS: 93880

== ENCOUNTER 2023-03-10 05:28 | Outpatient (CLI) | payer MEDICARE ==
[~2023-03-10] VITALS: Ht 172.7 cm; Wt 86.4 kg
[2023-03-10] MEDS ORDERED: LOSA25TA41 PO (09:05)
[2023-03-10] MEDS ORDERED: CLON1PAT33 TD (09:05)
[2023-03-10] MEDS ORDERED: HYDR12.56 PO (09:05)
== END 2023-03-10 09:12 | disposition home or self-care (01) ==
LOC: PREOP 05:28
PROVIDERS: ATTEND Specialist
DX: Z01.818 Encounter for other preprocedural examination (principal)

== ENCOUNTER → 2023-03-12 | Day surgery (SDC) | payer MEDICARE ==
[~2023-03-12] VITALS: Wt 86.4 kg
[~2023-03-12] MED LIST changes: +CLON1PAT33 TD; +HYDR12.56 PO; +LOSA25TA41 PO; +PHENYLEPHRINE 10% OPHTH (NEO-SYN) 5 ML BTL OU PRN; +TROPICAMIDE 1% OPH SOLN (MYDRIACYL) 15 ML BTL OU PRN
[2023-03-12 10:30] VITALS: BP 112/63
[2023-03-12] MEDS: TETRACAINE 0.5% OPHTH SOLN 4 ML BTL (SINGLE DOSE ONLY) OU PRN ×3 (10:39→10:43)
--- NOTE | 2023-03-12 11:04 | Ophthalmologist Pre-Op Note ---
Pre-Operative Progress Note H&P Reviewed The H&P was reviewed, patient examined and no changes noted. Date H&P Reviewed: Mar 12, 2023 Time H&P Reviewed: 11:04 Pre-Op Dx Secondary Cataract, Right Eye MICHELINE MARINELLI MD Mar 12, 2023 11:04
--- NOTE | 2023-03-12 11:27 | Ophthalmology Operative Report ---
YAG Capsulotomy PREOPERATIVE DIAGNOSIS: Secondary Cataract Right Eye POSTOPERATIVE DIAGNOSIS: Secondary Cataract Right Eye PROCEDURE: YAG Capsulotomy, right eye SURGEON: Jeff Marinelli ANESTHESIA: Topical anesthesia COMPLICATIONS: None ESTIMATED BLOOD LOSS: Minimal DESCRIPTION OF PROCEDURE: After proper informed consent was obtained, the patient's, a 77 male, right eye received one drop of Tropicamide and one drop of Tetracaine. The patient was then placed at the YAG laser and using a power of [4.0 ] millijoules and [17 ] bursts were used to fashion a central capsulotomy. The patient tolerated the procedure well without complications. JEFF MARINELLI MD Mar 12, 2023 11:27
== END | disposition home or self-care (01) ==
LOC: SDC 09:56
PROVIDERS: ATTEND Specialist
DX: H26.40 Unspecified secondary cataract (principal); Z87.891 Personal history of nicotine dependence